=== PATIENT | male | born 1945 | race Caucasian/White ===

== ENCOUNTER → 2016-06-18 | Outpatient (CLI) | payer BC ==
[~2016-06-18] MED LIST: CMD4 PO; LISI20TA3 PO; METO100T14 PO; OXYC-57 PO; OXYSR10 PO; PRED-301 PO; PRLSR20 PO; RMCI INJ
[2016-06-18 13:19] LABS: HEPATITIS B AB NEG
[2016-06-21 13:17] LABS: ANA TITER 1:40 TITER (<1:40)
== END | disposition home or self-care (01) ==
LOC: C.LAB1850 11:26
PROVIDERS: ATTEND Internal Medicine
DX: R74.8 Abnormal levels of other serum enzymes (principal)

== ENCOUNTER → 2016-09-10 | Outpatient (CLI) | payer BC ==
[~2016-09-10] MED LIST changes: +APRE1TAB4 PO; +GLC500 PO; +GLIM4TAB2 PO; +LSN40 PO; +NRV/10 PO; +PANT40TA2 PO; +PRED10TA PO; +TRAM-10 PO; +ULT50 PO
[2016-09-10 12:34] LABS: HEMATOCRIT 41.7 % (42-52); MEAN CELL VOLUME 87.1 fL (80-100); MEAN CORPUSCULAR HEMOGLOBIN 29.2 pg (25-34); MEAN CORPUSCULAR HGB CONC 33.6 g/dl (32-36); MEAN PLATELET VOLUME 11.3 fL (7.4-10.4); PLATELET COUNT 175 K/uL (130-400); RED BLOOD COUNT 4.79 M/uL (4.7-6.1); WHITE BLOOD COUNT 6.14 K/uL (4.8-10.8)
[2016-09-10 13:05] LABS: ALT/SGPT 173 U/L (12-78); BLOOD UREA NITROGEN 16 mg/dl (7-18); BUN/CREATININE RATIO 17.2 (10-20); CARBON DIOXIDE 29 mmol/L (21-32); CHLORIDE 99 mmol/L (98-107); CREATININE 0.93 mg/dl (0.60-1.40); GLUCOSE 169 mg/dl (70-99); POTASSIUM 4.2 mmol/L (3.5-5.1); SODIUM 135 mmol/L (136-145)
[2016-09-10 13:07] LABS: ALT/SGPT 172 U/L (12-78); CREATININE 0.98 mg/dl (0.60-1.40); ESTIMATED AVERAGE GLUCOSE 192 mg/dl; HA1C FLAG Normal (Normal)
[2016-09-10 13:08] LABS: ALB/GLOB RATIO 0.7 (0.9-2); ALKALINE PHOSPHATASE 50 U/L (45-117); AST/SGOT 184 U/L (15-37)
[2016-09-10 13:10] LABS: ALKALINE PHOSPHATASE 50 U/L (45-117); AST/SGOT 185 U/L (15-37)
== END | disposition home or self-care (01) ==
LOC: C.LABPVFM 09:11
PROVIDERS: ATTEND Internal Medicine
DX: L40.50 Arthropathic psoriasis, unspecified (principal); Z79.899 Other long term (current) drug therapy; I10 Essential (primary) hypertension; E78.5 Hyperlipidemia, unspecified; E11.21 Type 2 diabetes mellitus with diabetic nephropathy; R74.8 Abnormal levels of other serum enzymes

== ENCOUNTER → 2016-09-13 | Outpatient (CLI) | payer BC ==
--- NOTE | 2016-09-13 16:07 | DIAGNOSTIC IMAGING REPORT ---
CHEST 2 VIEWS ROUTINE CLINICAL HISTORY: COUGH COMPARISON STUDY: 06/26/2011 FINDINGS: The heart is at the upper limits of normal in size. There is no failure. There is no focal pulmonary consolidation. There are no pleural effusions. Mediastinal widening is likely secondary to fat deposition given the patient's body habitus.[ IMPRESSION: No active disease in the chest. Electronically signed by: Dom Perez M.D. 09/13/2016 4:05 PM Dictated Date/Time: 09/13/2016 4:05 PM
== END | disposition home or self-care (01) ==
LOC: C.RADPV 15:52
PROVIDERS: ATTEND Family Medicine
DX: R05 Cough (principal)

== ENCOUNTER → 2016-10-24 | Outpatient (CLI) | payer BC ==
[2016-10-24 12:14] LABS: BASO % 0.2 %; BASO ABS # 0.02 K/uL (0-0.2); COMPLETE YES; EOS % 3.1 %; HEMATOCRIT 41.6 % (42-52); IG% 0.1 %; LYMPH % 34.3 %; MEAN CORPUSCULAR HEMOGLOBIN 30.2 pg (25-34); MEAN CORPUSCULAR HGB CONC 33.2 g/dl (32-36); MEAN PLATELET VOLUME 11.7 fL (7.4-10.4); MONO % 6.9 %; NEUT % 55.4 %; PLATELET COUNT 210 K/uL (130-400); RED BLOOD COUNT 4.57 M/uL (4.7-6.1); WHITE BLOOD COUNT 8.74 K/uL (4.8-10.8)
[2016-10-24 13:36] LABS: ALB/GLOB RATIO 0.7 (0.9-2); ALT/SGPT 145 U/L (12-78); AST/SGOT 83 U/L (15-37); BLOOD UREA NITROGEN 16 mg/dl (7-18); BUN/CREATININE RATIO 15.6 (10-20); CALCIUM 8.7 mg/dl (8.5-10.1); CARBON DIOXIDE 30 mmol/L (21-32); CHLORIDE 101 mmol/L (98-107); GLUCOSE 198 mg/dl (70-99); POTASSIUM 4.4 mmol/L (3.5-5.1); SODIUM 136 mmol/L (136-145)
[2016-10-24 13:48] LABS: ALKALINE PHOSPHATASE 56 U/L (45-117); IMMUNOGLOBULN M 65.9 mg/dL (40-230)
[2016-10-25 11:17] LABS: FREE KAPPA 52.1 MG/L (3.3-19.4); FREE KAPPA/LAMBDA RATIO 1.03 (0.26-1.65); FREE LAMBDA 50.4 MG/L (5.7-26.3)
[2016-10-25 16:13] LABS: ALBUMIN 3.9 G/DL (3.8-4.8); GAMMA GLOBULIN 1.7 G/DL (0.8-1.7)
== END | disposition home or self-care (01) ==
LOC: C.LABPVFM 08:33
PROVIDERS: ATTEND Internal Medicine Hematology & Oncology
DX: D47.2 Monoclonal gammopathy (principal)

== ENCOUNTER → 2016-11-20 | Outpatient (CLI) | payer BC ==
[2016-11-20 13:32] LABS: ESTIMATED AVERAGE GLUCOSE 214 mg/dl; HA1C FLAG Normal (Normal)
[2016-11-20 14:18] LABS: MAGNESIUM 1.8 mg/dl (1.8-2.4)
[2016-11-20 14:28] LABS: BLOOD UREA NITROGEN 18 mg/dl (7-18); BUN/CREATININE RATIO 17.5 (10-20); CHLORIDE 101 mmol/L (98-107); GLUCOSE 176 mg/dl (70-99); POTASSIUM 4.2 mmol/L (3.5-5.1); SODIUM 138 mmol/L (136-145)
[2016-11-20 14:32] LABS: ALB/GLOB RATIO 0.6 (0.9-2); AST/SGOT 55 U/L (15-37)
[2016-11-20 14:40] LABS: CALCIUM 9.1 mg/dl (8.5-10.1); CARBON DIOXIDE 28 mmol/L (21-32)
[2016-11-20 14:48] LABS: ALKALINE PHOSPHATASE 55 U/L (45-117); ALT/SGPT 83 U/L (12-78)
--- NOTE | 2016-11-26 10:36 | CODING QUERY MEDICAL NECESSITY ---
SUPPORTING DIAGNOSIS NEEDED Dr. Stewart, A supporting diagnosis is required for the test/procedure performed on this patient in order for us to be reimbursed by the patient's insurance. Please provide a supporting diagnosis for the following test/procedure listed below next to the test name along with your signature. *If there is no additional diagnosis for this patient that would support the following test/procedure please document that below next to the test/procedure. Test(s)/Procedure(s) that require a supporting diagnosis: * [id number] GLYCATED HEMOGLOBIN DIAGNOSIS: DATE OF SERVICE: 11/20/16 Provider Signature: Date: Thank you Reggie Andres [facility] Information Management Once completed, please kindly fax back to [phone] For questions please call [phone]
== END | disposition home or self-care (01) ==
LOC: C.LABPVFM 07:56
PROVIDERS: ATTEND Internal Medicine
DX: R25.2 Cramp and spasm (principal); R74.8 Abnormal levels of other serum enzymes; E55.9 Vitamin D deficiency, unspecified

== ENCOUNTER → 2016-12-26 | Outpatient (CLI) | payer BC ==
[~2016-12-26] MED LIST changes: -APRE1TAB4 PO; -GLC500 PO; -GLIM4TAB2 PO; -LSN40 PO; -NRV/10 PO; -PANT40TA2 PO; -PRED10TA PO; -TRAM-10 PO; -ULT50 PO
[2016-12-26 13:15] LABS: HEMATOCRIT 41.4 % (42-52); MEAN CELL VOLUME 88.1 fL (80-100); MEAN CORPUSCULAR HEMOGLOBIN 28.5 pg (25-34); MEAN CORPUSCULAR HGB CONC 32.4 g/dl (32-36); MEAN PLATELET VOLUME 10.6 fL (7.4-10.4); PLATELET COUNT 249 K/uL (130-400); WHITE BLOOD COUNT 10.55 K/uL (4.8-10.8)
[2016-12-26 13:36] LABS: ALT/SGPT 105 U/L (12-78); AST/SGOT 74 U/L (15-37)
[2016-12-26 13:37] LABS: ALKALINE PHOSPHATASE 54 U/L (45-117)
== END | disposition home or self-care (01) ==
LOC: C.LABPVFM 08:31
PROVIDERS: ATTEND Internal Medicine
DX: L40.50 Arthropathic psoriasis, unspecified (principal); Z79.899 Other long term (current) drug therapy

== ENCOUNTER → 2017-01-28 | Outpatient (CLI) | payer BC ==
[2017-01-28 13:31] LABS: ALT/SGPT 75 U/L (12-78); AST/SGOT 53 U/L (15-37); BLOOD UREA NITROGEN 17 mg/dl (7-18); BUN/CREATININE RATIO 17.8 (10-20); CALCIUM 9.2 mg/dl (8.5-10.1); CARBON DIOXIDE 30 mmol/L (21-32); CHLORIDE 101 mmol/L (98-107); CREATININE 0.93 mg/dl (0.60-1.40); GLUCOSE 104 mg/dl (70-99); POTASSIUM 4.1 mmol/L (3.5-5.1); SODIUM 134 mmol/L (136-145)
[2017-01-28 13:33] LABS: ALB/GLOB RATIO 0.6 (0.9-2); ALKALINE PHOSPHATASE 60 U/L (45-117)
== END | disposition home or self-care (01) ==
LOC: C.LABPVFM 09:01
PROVIDERS: ATTEND Family Medicine
DX: E11.21 Type 2 diabetes mellitus with diabetic nephropathy (principal); R74.8 Abnormal levels of other serum enzymes; E55.9 Vitamin D deficiency, unspecified

== ENCOUNTER → 2017-03-21 | Outpatient (CLI) | payer BC ==
--- NOTE | 2017-03-21 12:24 | DIAGNOSTIC IMAGING REPORT ---
R HAND 2 VIEWS CLINICAL HISTORY: PAIN AND SWELLING COMPARISON: None. DISCUSSION: No acute fractures are visualized. There is joint space narrowing involving the first second and third metacarpal phalangeal joints. Osteoarthritic type changes are present the level of the proximal distal interphalangeal joints with erosive osteoarthritic changes identified to level of the distal interphalangeal joint of the index finger. No peripheral erosions are visualized. There are vascular calcifications. IMPRESSION: 1. No acute fractures 2. Moderately advanced osteoarthritic changes, predominantly in an osteoarthritic pattern. The changes are most severe involving the distal interphalangeal joint of the index finger which demonstrates prominent osteophytes, fragmentation, and erosive osteoarthritic change. Electronically signed by: Dom Perez M.D. 03/21/2017 12:23 PM Dictated Date/Time: 03/21/2017 12:16 PM
--- NOTE | 2017-03-21 12:25 | DIAGNOSTIC IMAGING REPORT ---
L FOOT 2 VIEWS, R FOOT 2 VIEWS CLINICAL HISTORY: PAIN AND SWELLING of bilateral feet COMPARISON STUDY: None. FINDINGS: No fracture or dislocation within the right or left foot. Mild vascular calcifications. Mild to moderate degenerative changes seen within the DIP and PIP joints of the bilateral feet. There also mild degenerative changes seen within the bilateral first MTP joints and intertarsal joints. No bony erosions within the right foot. Mild soft tissue swelling throughout the feet most pronounced within the right toes. Possible small focal erosion at the lateral head of the fifth metatarsal of the left foot with adjacent soft tissue swelling. No periarticular calcifications. The Lisfranc joints are intact. Plantar and posterior calcaneal spurs bilaterally. IMPRESSION: 1. Mild diffuse soft tissue swelling within the feet. 2. Mild to moderate osteoarthritis within the feet. 3. Possible small erosion at the lateral head of the fifth metatarsal of the left foot. This is nonspecific but could be due to gouty arthritis. Electronically signed by: Vijay Reynoso M.D. 03/21/2017 12:23 PM Dictated Date/Time: 03/21/2017 12:15 PM
--- NOTE | 2017-03-21 12:28 | DIAGNOSTIC IMAGING REPORT ---
L HAND 2 VIEWS CLINICAL HISTORY: PAIN AND SWELLING COMPARISON: None. DISCUSSION: The bony mineralization appears normal. There are no fractures or subluxations. There are arthritic changes of a predominately osteoarthritic pattern. There is no erosive disease. IMPRESSION: Moderate osteoarthritic change. No acute fractures. Electronically signed by: Dom Perez M.D. 03/21/2017 12:27 PM Dictated Date/Time: 03/21/2017 12:26 PM
[2017-03-21 17:38] LABS: BASO % 0.2 %; BASO ABS # 0.03 K/uL (0-0.2); COMPLETE YES; EOS % 1.5 %; HEMATOCRIT 33.7 % (42-52); IG% 0.2 %; LYMPH % 25.5 %; LYMPH ABS # 3.62 K/uL (1.2-3.4); MEAN CELL VOLUME 85.3 fL (80-100); MEAN CORPUSCULAR HEMOGLOBIN 28.1 pg (25-34); MEAN CORPUSCULAR HGB CONC 32.9 g/dl (32-36); MEAN PLATELET VOLUME 9.8 fL (7.4-10.4); MONO % 7.1 %; NEUT % 65.5 %; PLATELET COUNT 350 K/uL (130-400); RED BLOOD COUNT 3.95 M/uL (4.7-6.1)
[2017-03-21 17:56] LABS: ALT/SGPT 37 U/L (12-78); AST/SGOT 37 U/L (15-37)
[2017-03-21 17:59] LABS: ALKALINE PHOSPHATASE 58 U/L (45-117)
== END | disposition home or self-care (01) ==
LOC: C.RADPV 11:43
PROVIDERS: ATTEND Internal Medicine
DX: L40.50 Arthropathic psoriasis, unspecified (principal)

== ENCOUNTER 2017-04-08 19:07 | Emergency (ER) | payer BC, OTHER ==
[~2017-04-08] VITALS: Ht 167.6 cm; Wt 132.3 kg
[2017-04-08 19:16] VITALS: TEMP 37.1; Ht 167.6 cm; Wt 132.3 kg
[2017-04-08] MEDS ORDERED: OPTIRAY 320 IV PRN (19:30)
[2017-04-08] MEDS ORDERED: LSN40 PO (19:42)
[2017-04-08] MEDS ORDERED: GLC500 PO (19:42)
[2017-04-08] MEDS ORDERED: GLIM4TAB2 PO (19:42)
[2017-04-08] MEDS ORDERED: ULT50 PO (19:42)
[2017-04-08] MEDS ORDERED: PRED10TA PO (19:42)
[2017-04-08] MEDS ORDERED: APRE1TAB4 PO (19:42)
[2017-04-08] MEDS ORDERED: NRV/10 PO (19:44)
[2017-04-08] MEDS ORDERED: PANT40TA2 PO (19:44)
[2017-04-08 20:00] LABS: BASO % 0.2 %; BASO ABS # 0.02 K/uL (0-0.2); COMPLETE YES; EOS % 0.5 %; HEMATOCRIT 34.8 % (42-52); IG% 0.4 %; LYMPH % 26.4 %; MEAN CELL VOLUME 84.5 fL (80-100); MEAN CORPUSCULAR HEMOGLOBIN 27.4 pg (25-34); MEAN CORPUSCULAR HGB CONC 32.5 g/dl (32-36); MONO % 4.3 %; NEUT % 68.2 %; PLATELET COUNT 247 K/uL (130-400); RED BLOOD COUNT 4.12 M/uL (4.7-6.1); WHITE BLOOD COUNT 13.28 K/uL (4.8-10.8)
[2017-04-08 20:02] LABS: INR 0.9 (0.9-1.1); PROTHROMBIN TIME (PATIENT) 10.1 SECONDS (9.0-12.0)
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
[2017-04-08 20:20] LABS: ALT/SGPT 34 U/L (12-78); AST/SGOT 18 U/L (15-37); BLOOD UREA NITROGEN 23 mg/dl (7-18); BUN/CREATININE RATIO 19.2 (10-20); CARBON DIOXIDE 30 mmol/L (21-32); CHLORIDE 100 mmol/L (98-107); CREATININE 1.19 mg/dl (0.60-1.40); GLUCOSE 169 mg/dl (70-99); POTASSIUM 4.8 mmol/L (3.5-5.1); SODIUM 135 mmol/L (136-145)
[2017-04-08 20:22] LABS: ALKALINE PHOSPHATASE 49 U/L (45-117)
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
[2017-04-08] MEDS ORDERED: TRAM-10 PO (22:22)
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
[2017-04-08] MEDS ORDERED: TRAMADOL HCL 50 MG HOME PACK PO ONE (22:45)
[2017-04-08 22:50] VITALS: BP 154/88; PULSE 84; O2SAT 98
== END 2017-04-08 23:00 | disposition home or self-care (01) ==
LOC: EDBD 19:07 → C.EDC 19:08
DX: S72.432A Displaced fracture of medial condyle of left femur, initial encounter for closed fracture (principal); M54.9 Dorsalgia, unspecified; V03.10XA Pedestrian on foot injured in collision with car, pick-up truck or van in traffic accident, initial encounter; Y92.481 Parking lot as the place of occurrence of the external cause; E11.9 Type 2 diabetes mellitus without complications; I10 Essential (primary) hypertension; E78.1 Pure hyperglyceridemia; Z79.899 Other long term (current) drug therapy; Z83.3 Family history of diabetes mellitus; Z82.49 Family history of ischemic heart disease and other diseases of the circulatory system

== ENCOUNTER → 2017-05-23 | Outpatient (CLI) | payer BC ==
[~2017-05-23] MED LIST changes: +APRE1TAB4 PO; -CMD4 PO; +GLC500 PO; +GLIM4TAB2 PO; -LISI20TA3 PO; +LSN40 PO; -METO100T14 PO; +NRV/10 PO; -OXYC-57 PO; -OXYSR10 PO; +PANT40TA2 PO; -PRED-301 PO; +PRED10TA PO; -PRLSR20 PO; -RMCI INJ; +TRAM-10 PO; +ULT50 PO
[2017-05-23 13:14] LABS: ESTIMATED AVERAGE GLUCOSE 157 mg/dl; HA1C FLAG Normal (Normal)
[2017-05-23 13:37] LABS: ALT/SGPT 29 U/L (12-78); BLOOD UREA NITROGEN 18 mg/dl (7-18); CALCIUM 9.2 mg/dl (8.5-10.1); CARBON DIOXIDE 31 mmol/L (21-32); CHLORIDE 100 mmol/L (98-107); CHOLESTEROL 167 mg/dl (0-200); CREATININE 0.86 mg/dl (0.60-1.40); GLUCOSE 90 mg/dl (70-99); SODIUM 136 mmol/L (136-145); TRIGLYCERIDES 114 mg/dl (0-150); VERY LOW DENSITY LIPOPROT CALC 23 mg/dl
[2017-05-23 13:40] LABS: ALB/GLOB RATIO 0.7 (0.9-2); ALKALINE PHOSPHATASE 54 U/L (45-117); AST/SGOT 17 U/L (15-37); CHOLESTEROL/HDL RATIO 3.8; HDL CHOLESTEROL 44 mg/dl; LDL CHOLESTEROL CALCULATED 100 mg/dl
== END | disposition home or self-care (01) ==
LOC: C.LABPVFM 08:35
PROVIDERS: ATTEND Family Medicine
DX: L40.9 Psoriasis, unspecified (principal)

== ENCOUNTER → 2017-07-16 | Outpatient (CLI) | payer BC ==
[2017-07-16 12:52] LABS: HEMATOCRIT 36.4 % (42-52); HEMOGLOBIN 11.4 g/dL (14.0-18.0); MEAN CELL VOLUME 81.6 fL (80-100); MEAN CORPUSCULAR HEMOGLOBIN 25.6 pg (25-34); MEAN CORPUSCULAR HGB CONC 31.3 g/dl (32-36); MEAN PLATELET VOLUME 10.1 fL (7.4-10.4); PLATELET COUNT 296 K/uL (130-400); RED CELL DISTRIBUTION WIDTH CV 16.5 % (11.5-14.5); RED CELL DISTRIBUTION WIDTH SD 49.2 fL (36.4-46.3); WHITE BLOOD COUNT 13.26 K/uL (4.8-10.8)
[2017-07-16 13:31] LABS: ALBUMIN 3.2 gm/dl (3.4-5.0); ALT/SGPT 26 U/L (12-78); AST/SGOT 16 U/L (15-37); CREATININE 0.84 mg/dl (0.60-1.40)
[2017-07-16 13:51] LABS: ALKALINE PHOSPHATASE 54 U/L (45-117); TOTAL PROTEIN 8.2 gm/dl (6.4-8.2)
== END | disposition home or self-care (01) ==
LOC: C.LABPVFM 08:59
PROVIDERS: ATTEND Internal Medicine
DX: L40.50 Arthropathic psoriasis, unspecified (principal); Z79.899 Other long term (current) drug therapy

== ENCOUNTER → 2017-09-02 | Outpatient (CLI) | payer BC ==
--- NOTE | 2017-09-02 09:14 | DIAGNOSTIC IMAGING REPORT ---
R SHOULDER MIN 2 VIEWS ROUTINE CLINICAL HISTORY: ACUTE PAIN BOTH SHOULDERS pain COMPARISON: None. DISCUSSION: Moderate degenerative change glenohumeral and acromioclavicular joints. Calcifications along the supraspinatus musculotendinous junction. Potentially also represent synovial calcifications. No evidence for fracture. There is no evidence for soft tissue swelling. IMPRESSION: Moderate degenerative change glenohumeral as well as acromioclavicular joint. Several synovial calcifications versus calcific supraspinatus tendinitis. The above report was generated using voice recognition software. It may contain grammatical, syntax or spelling errors. Electronically signed by: Albino Espinosa M.D. 09/02/2017 9:12 AM Dictated Date/Time: 09/02/2017 9:11 AM
--- NOTE | 2017-09-02 09:15 | DIAGNOSTIC IMAGING REPORT ---
L SHOULDER MIN 2 VIEWS ROUTINE CLINICAL HISTORY: ACUTE PAIN BOTH SHOULDERS pain COMPARISON: None. DISCUSSION: Moderate degenerative change acromioclavicular as well as glenohumeral joint. No significant soft tissue calcifications. Mild peripheral osteophytic reaction. There is no evidence for soft tissue swelling. IMPRESSION: Moderate degenerative changes of glenohumeral as well as acromioclavicular joint. No acute process. The above report was generated using voice recognition software. It may contain grammatical, syntax or spelling errors. Electronically signed by: Albino Espinosa M.D. 09/02/2017 9:13 AM Dictated Date/Time: 09/02/2017 9:12 AM
== END | disposition home or self-care (01) ==
LOC: C.RADPV 08:46
PROVIDERS: ATTEND Internal Medicine
DX: M25.511 Pain in right shoulder (principal); M25.512 Pain in left shoulder; M19.011 Primary osteoarthritis, right shoulder; M19.012 Primary osteoarthritis, left shoulder

== ENCOUNTER 2019-04-07 19:28 | Inpatient (IN) ==
[2019-04-07 20:23] LABS: Basophils # (auto) 0.03 K/uL (0-0.2); Basophils % (auto) 0.2 %; Eosinophils # (auto) 0.13 K/uL (0-0.5); Eosinophils % (auto) 0.9 %; Hematocrit (blood only) 38.3 % (42-52); Hemoglobin 11.9 g/dL (14.0-18.0); Immature Granulocytes # (auto) 0.05 K/uL (0.00-0.02); Immature Granulocytes % (auto) 0.4 %; Lymphocytes # (auto) 2.84 K/uL (1.2-3.4); Mean Corpuscular Hemoglobin 26.3 pg (25-34); Mean Corpuscular Hgb Conc 31.1 g/dL (32-36); Mean Corpuscular Volume 84.5 fL (80-100); Mean Platelet Volume 9.9 fL (7.4-10.4); Monocytes # (auto) 1.01 K/uL (0.11-0.59); Monocytes % (auto) 7.1 %; Neutrophils # (auto) 10.17 K/uL (1.4-6.5); Neutrophils % (auto) 71.4 %; Platelet Count 291 K/uL (130-400); RDW Coefficient of Variation 16.9 % (11.5-14.5); RDW Standard Deviation 52.5 fL (36.4-46.3); Red Blood Count 4.53 M/uL (4.7-6.1); White Blood Count 14.23 K/uL (4.8-10.8)
[2019-04-07 20:34] LABS: Partial Thromboplastin Ratio 0.8; Partial Thromboplastin Time 21.4 Seconds (21.0-31.0); Prothrombin Time 10.7 Seconds (9.0-12.0)
[2019-04-07 20:38] LABS: Alanine Aminotransferase 26 U/L (12-78); Albumin Level 3.4 gm/dl (3.4-5.0); Aspartate Aminotransferase 19 U/L (15-37); BUN Creatinine Ratio 19.4 (10-20); Blood Urea Nitrogen 22 mg/dl (7-18); Calcium 9.1 mg/dl (8.5-10.1); Carbon Dioxide 35 mmol/L (21-32); Chloride 99 mmol/L (98-107); Est GFR (African American) 73.3; Est GFR (Non-African American) 63.2; Glucose 112 mg/dl (70-99); Sodium 138 mmol/L (136-145)
--- NOTE | 2019-04-07 20:40 | XRay Report ---
XR chest 1V portable HISTORY: Sepsis COMPARISON: Chest 04/07/2018. FINDINGS: The heart remains enlarged. There are low lung volumes. There is mild central pulmonary vas cular congestion without overt edema. No pleural effusions. No pneumothorax. A few bibasilar linear d ensities. IMPRESSION: 1. Cardiomegaly with mild central pulmonary vascular congestion. 2. Low lung volumes and bibasilar linear densities. These are nonspecific but favor subsegmental atel ectasis. Electronically signed by: Vijay Reynoso M.D. 04/07/2019 8:39 PM
[2019-04-07] MEDS ORDERED: FUROSEMIDE 40 MG/4 ML VIAL IV STA (20:49)
[2019-04-07 20:52] LABS: Albumin Globulin Ratio 0.7 (0.9-2); Alkaline Phosphatase 58 U/L (45-117); Bilirubin,Total 0.7 mg/dl (0.2-1); Globulin 4.9 gm/dl (2.5-4.0); Total Protein 8.3 gm/dl (6.4-8.2); Troponin I 0.134 ng/ml (0-0.045)
[2019-04-08] MEDS ORDERED: CLOBETASOL PROPIONATE 0.05% OINT 15 GM TUBE EXT PRN (00:09)
[2019-04-08] MEDS ORDERED: DEXTROSE 50% 50 ML SYRINGE IV PRN (00:09)
[2019-04-08] MEDS ORDERED: MAGNESIUM HYDROXIDE SUSP 30 ML UDC PO PRN (00:09)
[2019-04-08] MEDS ORDERED: POLYETHYLENE (MIRALAX) 17 GM PACK PO PRN (00:09)
[2019-04-08] MEDS ORDERED: GLUCOSE 10 TABS/TUBE PO PRN (00:09)
[2019-04-08] MEDS ORDERED: GLUCOSE 40% GEL 15 GM TUBE PO PRN (00:09)
[2019-04-08] MEDS ORDERED: GLUCAGON FOR INJ 1 MG VIAL SQ PRN (00:09)
[2019-04-08] MEDS ORDERED: CARBOHYDRATES FOR HYPOGLYCEMIA PO PRN (00:09)
[2019-04-08] MEDS ORDERED: ACETAMINOPHEN 325 MG TAB PO PRN (00:09)
[2019-04-08] MEDS ORDERED: ONDANSETRON INJ 2 MG/ML 2 ML VIAL IV PRN (00:09)
[2019-04-08] MEDS ORDERED: ALUMINUM/MAGNESIUM SUSP 30 ML UDC PO PRN (00:09)
--- NOTE | 2019-04-08 01:06 | Emergency Department Note ---
Entered by Marly Malin acting as a scribe for Rajendra Sprague MD History of Present Illness General Chief complaint: Cardiac Assessment Stated complaint: VOMITING, SOB, WEAK, DID HAVE CHEST PAIN Time Seen by Provider: 04/07/19 19:58 Source: patient History of Present Illness Onset (ago): day(s) (past few days) Location: head and chest Pain Consistency: + other (worsening (SOB)) Quality: + other (cardiac assessment ) Associated symptoms: + shortness of breath and + other (Positive hx of fluid buildup in the past, recent swollen legs, diarrhea today. Negative pain or swelling in his legs, recent fevers); no cough The patient is a 73 year old male who presents to the ED for a cardiac assessment. He has had worsening shortness of breath for the past few days. He has a history of CHF and has been using his nebulizers at home with minimal relief. He denies any pain or swelling in his legs. He denies any recent fevers or cough. He notes he does not have inhalers at home. His states he has filled up with fluid in the past. She denies any recent fevers. Yesterday, the patient saw his Plasterer Spray Gun, Dr. Steiner, and she told him his legs were increasingly swollen. His notes he has been feeling crummy today and had diarrhea earlier today. Home Medications Home Medications Medication Instructions Recorded Confirmed Type amlodipine 10 mg PO QAM 03/30/18 04/07/19 History atorvastatin 10 mg PO DAILY 03/30/18 04/07/19 History cholecalciferol (vitamin D3) 1,000 unit PO DAILY 03/30/18 04/07/19 History [Vitamin D3] clobetasol 1 applic TOPICAL BID PRN 03/30/18 04/07/19 History clotrimazole 1 applic TOPICAL BID PRN 03/30/18 04/07/19 History metformin 500 mg PO BID 03/30/18 04/07/19 History pantoprazole 40 mg PO DAILY 03/30/18 04/07/19 History furosemide 40 mg PO DAILY #30 tab 04/01/18 04/07/19 Rx lisinopril 40 mg tablet 40 mg PO DAILY #90 tab 12/04/18 04/07/19 Rx glimepiride 2 mg tablet 2 mg PO BID #180 tab 12/16/18 04/07/19 Rx metoprolol tartrate 100 mg tablet 100 mg PO BID #180 tab 12/16/18 04/07/19 Rx potassium chloride ER 10 mEq 10 meq PO DAILY #30 cap 12/29/18 04/07/19 Rx capsule,extended release gabapentin 100 mg capsule 100 mg PO DAILY cap 02/05/19 04/07/19 History ixekizumab 80 mg/mL subcutaneous 80 mg SQ MONTHLY ml 02/05/19 04/07/19 History auto-injector prednisone 10 mg tablet 10 mg PO DAILY tab 02/05/19 04/07/19 History Allergies Allergy/AdvReac Type Severity Reaction Status Date / Time codeine Allergy Intermediate HIVES--PT Verified 04/07/19 22:33 DOES NOT USE PERCOCET Past Med/Surg History Medical History Rheumatoid arthritis MGUS (monoclonal gammopathy of unknown significance) Sleep apnea Diabetes (Chronic) Hypertension (Chronic) Arthritis Hyperlipidemia Neuropathy Surgical History History of arthroplasty of right shoulder History of bilateral knee replacement Hx of appendectomy Hx of cholecystectomy Hx of hernia repair Family History Other Family history non-contributory Social History Preferred Language: Congolese Communication Ability: Effective 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 and A total of 10 systems reviewed and were otherwise negative Physical Exam Vital Signs Vital Signs - 24 hr 04/07/19 19:40 04/07/19 19:47 04/07/19 19:57 Temperature 36.6 C Temperature Source Oral Sepsis Recent Fever Within 48 Hours No Sepsis New/Unexplained Change in Mental Status No Sepsis Action Taken by Nursing No Action Required Pulse Rate 81 Pulse Rate [Finger] Pulse Rhythm [Finger] Pulse Strength [Finger] Respiratory Rate 18 Respiratory Effort / Characteristics Non-Labored Spontaneous Respiratory Depth Normal Normal Respiratory Pattern Regular Blood Pressure 120/77 Blood Pressure [Right Arm] Blood Pressure Mean 91 Blood Pressure Mean [Right Arm] Pulse Oximetry 45 L Oxygen Delivery Method Nasal Cannula Nasal Cannula Oxymask Oxygen Flow Rate 3 8 04/07/19 20:10 04/07/19 20:42 04/07/19 21:20 Temperature Temperature Source Sepsis Recent Fever Within 48 Hours Sepsis New/Unexplained Change in Mental Status Sepsis Action Taken by Nursing Pulse Rate Pulse Rate [Finger] 80 95 H Pulse Rhythm [Finger] Regular Regular Pulse Strength [Finger] Normal Normal Respiratory Rate 23 19 Respiratory Effort / Characteristics Non-Labored Spontaneous Non-Labored Spontaneous Respiratory Depth Normal Normal Respiratory Pattern Regular Regular Blood Pressure Blood Pressure [Right Arm] 164/55 H 155/78 H Blood Pressure Mean Blood Pressure Mean [Right Arm] 91 103 Pulse Oximetry 96 99 93 Oxygen Delivery Method Oxymask Room Air Oxymask Oxygen Flow Rate 8 8 04/07/19 22:07 Temperature Temperature Source Sepsis Recent Fever Within 48 Hours Sepsis New/Unexplained Change in Mental Status Sepsis Action Taken by Nursing Pulse Rate Pulse Rate [Finger] 99 H Pulse Rhythm [Finger] Regular Pulse Strength [Finger] Normal Respiratory Rate 24 Respiratory Effort / Characteristics Non-Labored Spontaneous Respiratory Depth Normal Respiratory Pattern Regular Blood Pressure Blood Pressure [Right Arm] 155/78 H Blood Pressure Mean Blood Pressure Mean [Right Arm] 103 Pulse Oximetry 93 Oxygen Delivery Method Oxymask Oxygen Flow Rate 8 General: Heavy set moderately tachypneic older male, normal mentation HEENT: Normal cephalic atraumatic. Pupils are equal round and reactive to light. Extraocular movements are intact. Oropharynx is pink with moist mucous membranes. No swelling of the mouth lips or tongue. Neck: Supple with a midline trachea. No meningeal signs or stiffness, no JVD or bruits. No Stridor. Chest: Clear to auscultation bilaterally. No wheezes or rhonchi. No increased work of breathing. Heart: regular rate and rhythm. Abdomen: Soft nontender, nondistended without rebound guarding or rigidity. Extremities: No cyanosis clubbing. No calf tenderness or asymmetry. Pitting of LE Spine/Back. Non tender to palpation. No CVA tenderness Skin: Good turgor without rashes. Neurologic exam: Cranial nerves two through 12 are intact. Motor and sensation are intact and symmetrical throughout. Course 1947: Past medical records reviewed. The patient was evaluated in room B9. A com plete history and physical exam was performed. 2049: I checked on the patient at this time. He will receive some IV Lasix. 2099: Discussed the patient's case with Dr. Romero, [facility] Hospitalist. The patient will be evaluated for further management. Administered Medications Discontinued Medications Furosemide (Lasix) 40 mg IV NOW STA Stop: 04/07/19 20:50 Last Admin: 04/07/19 21:20 Dose: 40 mg Documented by: [id number] Methylprednisolone (Solumedrol) 20 mg IV NOW ONE Stop: 04/07/19 23:16 Last Admin: 04/07/19 23:12 Dose: 20 mg Documented by: [id number] Medical Decision Making Differential Diagnosis Differential diagnosis: Etiologies such as CHF, COPD, sepsis, pneumonia, electrolyte or metabolic abnormality, as well as others were entertained. Medical Records Attestation: I reviewed the patient's medical records. Home Medications Current Medication List: was personally reviewed by me Laboratory Data Attestation: I reviewed the patient's lab results. Result diagrams: 04/07/19 19:11 04/07/19 19:11 Lab Results 04/07/19 04/07/19 04/07/19 Range/Units 19:11 19:11 19:11 WBC 14.23 H (4.8-10.8) K/uL RBC 4.53 L (4.7-6.1) M/uL Hgb 11.9 L (14.0-18.0) g/dL Hct 38.3 L (42-52) % MCV 84.5 (80-100) fL MCH 26.3 (25-34) pg MCHC 31.1 L (32-36) g/dL RDW Std Deviation 52.5 H (36.4-46.3) fL RDW Coeff of Tony 16.9 H (11.5-14.5) % Plt Count 291 (130-400) K/uL MPV 9.9 (7.4-10.4) fL Immature Gran % (Auto) 0.4 % Neut % (Auto) 71.4 % Lymph % (Auto) 20.0 % Duc[place]ne % (Auto) 7.1 % Eos % (Auto) 0.9 % Baso % (Auto) 0.2 % Immature Gran # (Auto) 0.05 H (0.00-0.02) K/uL Neut # (Auto) 10.17 H (1.4-6.5) K/uL Lymph # (Auto) 2.84 (1.2-3.4) K/uL Duc[place]ne # (Auto) 1.01 H (0.11-0.59) K/uL Eos # (Auto) 0.13 (0-0.5) K/uL Baso # (Auto) 0.03 (0-0.2) K/uL PT 10.7 (9.0-12.0) Seconds INR 1.0 (0.9-1.1) APTT 21.4 (21.0-31.0) Seconds PTT Ratio 0.8 Sodium 138 (136-145) mmol/L Potassium 4.0 (3.5-5.1) mmol/L Chloride 99 (98-107) mmol/L Carbon Dioxide 35 H (21-32) mmol/L Anion Gap 4.0 (3-11) BUN 22 H (7-18) mg/dl Creatinine 1.13 (0.6-1.4) mg/dl Est Cr Clr Drug Dosing Not Reportable Est GFR ( Amer) 73.3 Est GFR (Non-Af Amer) 63.2 BUN/Creatinine Ratio 19.4 (10-20) Glucose 112 H (70-99) mg/dl Lactate (0.4-2.0) mmol/L Calcium 9.1 (8.5-10.1) mg/dl Total Bilirubin 0.7 (0.2-1) mg/dl AST 19 (15-37) U/L ALT 26 (12-78) U/L Alkaline Phosphatase 58 (45-117) U/L Troponin I 0.134 H* (0-0.045) ng/ml Total Protein 8.3 H (6.4-8.2) gm/dl Albumin 3.4 (3.4-5.0) gm/dl Globulin 4.9 H (2.5-4.0) gm/dl Albumin/Globulin Ratio 0.7 L (0.9-2) 04/07/19 Range/Units 19:56 WBC (4.8-10.8) K/uL RBC (4.7-6.1) M/uL Hgb (14.0-18.0) g/dL Hct (42-52) % MCV (80-100) fL MCH (25-34) pg MCHC (32-36) g/dL RDW Std Deviation (36.4-46.3) fL RDW Coeff of Tony (11.5-14.5) % Plt Count (130-400) K/uL MPV (7.4-10.4) fL Immature Gran % (Auto) % Neut % (Auto) % Lymph % (Auto) % [place]ne % (Auto) % Eos % (Auto) % Baso % (Auto) % Immature Gran # (Auto) (0.00-0.02) K/uL Neut # (Auto) (1.4-6.5) K/uL Lymph # (Auto) (1.2-3.4) K/uL Duc[place]ne # (Auto) (0.11-0.59) K/uL Eos # (Auto) (0-0.5) K/uL Baso # (Auto) (0-0.2) K/uL PT (9.0-12.0) Seconds INR (0.9-1.1) APTT (21.0-31.0) Seconds PTT Ratio Sodium (136-145) mmol/L Potassium (3.5-5.1) mmol/L Chloride (98-107) mmol/L Carbon Dioxide (21-32) mmol/L Anion Gap (3-11) BUN (7-18) mg/dl Creatinine (0.6-1.4) mg/dl Est Cr Clr Drug Dosing Est GFR ( Amer) Est GFR (Non-Af Amer) BUN/Creatinine Ratio (10-20) Glucose (70-99) mg/dl Lactate 1.4 (0.4-2.0) mmol/L Calcium (8.5-10.1) mg/dl Total Bilirubin (0.2-1) mg/dl AST (15-37) U/L ALT (12-78) U/L Alkaline Phosphatase (45-117) U/L Troponin I (0-0.045) ng/ml Total Protein (6.4-8.2) gm/dl Albumin (3.4-5.0) gm/dl Globulin (2.5-4.0) gm/dl Albumin/Globulin Ratio (0.9-2) Imaging Data Radiologist's Impression: Radiology results as stated below per my review and the radiologist's interpretation: XR chest 1V portable HISTORY: Sepsis COMPARISON: Chest 04/07/2018. FINDINGS: The heart remains enlarged. There are low lung volumes. There is mild central pulmonary vascular congestion without overt edema. No pleural effusions. No pneumothorax. A few bibasilar linear densities. IMPRESSION: 1. Cardiomegaly with mild central pulmonary vascular congestion. 2. Low lung volumes and bibasilar linear densities. These are nonspecific but favor subsegmental atelectasis. Electronically signed by: Vijay Reynoso M.D. 04/07/2019 8:39 PM ECG Data Attestation: I personally reviewed and interpreted this ECG as follows: Indication: SOB/dyspnea Rate (beats per minute): 73 Rhythm: normal sinus (with SA) ECG Findings: Other (no acute ischemia, no ectopy) Comparison ECG Date: from (04/07/18) Change: the following changes noted (AZ interval has decreased ) Blood Pressure Blood Pressure Findings: Elevated blood pressure Blood Pressure Disposition: further management by hospitalist [facility] Narrative This patient comes in as described above. The nurse asked me to see him immediately as his O2 sat was in the high 40s. Initially the patient here did appear to be tachypneic .he was placed on a facemask oxygen. he has no wheezes in his lungs. he denies any chest pain. He quickly settled down. EKG did not show any acute ischemic changes or ectopy. Chest x-ray shows cardiomegaly. he has had a lot of weight gain and has lower extremity edema . he was given additional IV Lasix. His troponin is mildly elevated as well. His lactic acid is not elevated therefore going against sepsis. His white count is mildly elevated however. he is on chronic steroids. I think that his symptoms are most likely from CHF and I do think he needs to be admitted for diuresis and further treatment and evaluation. He is remained on oxygen but we have been slowly weaning him and diuresing him in the ER. I did consult Dr. Alcaraz to see him in the ER for admission/observation Impression & Plan CHF (congestive heart failure), Bilateral lower extremity edema, Hypoxemia, Elevated troponin Critical Care Time Critical Care Time: Yes Total Critical Care Time: 45 I have personally spent greater than 45 minutes of critical care time in the direct management of this patient. This includes bedside care, interpretation of diagnostic studies, and testing, discussion with consultants, patient, and family members, and other required patient management activities. This 45 minutes is in excess of all separately billable procedures. Discharge Plan Visit Data *Final* Discharge Date/Time: 04/07/19 23:38 Chief Complaint: Cardiac Assessment Stated Complaint: VOMITING, SOB, WEAK, DID HAVE CHEST PAIN ED Provider: Rajendra Sprague Discharge Problem: CHF (congestive heart failure), Bilateral lower extremity edema, Hypoxemia, Elevated troponin Patient Disposition: Admitted As Inpatient Discharge Instructions Interventions: ED Discharge Assessment Last Done: 04/07/19 23:38 Discharge Problem: CHF (congestive heart failure) Qualifiers: Heart failure type: unspecified Heart failure chronicity: unspecified Qualified Code(s): I50.9 - Heart failure, unspecified The scribe's documentation has been prepared under my direction and personally reviewed by me in its entirety. I confirm that the note above accurately reflects all work, treatment, procedures, and medical decision making performed by me.
[2019-04-08] MEDS: METOPROLOL TARTRATE 100 MG TAB PO SCH ×3 (01:35→21:37)
--- NOTE | 2019-04-08 05:09 | History & Physical Report ---
Date of Service April 08, 2019 The patient was seen and examined on 04/07/2019 Assessment & Plan (1) Hypoxia: Patient presented to the emergency department acutely hypoxic, improved with placement on mask. Likely a combination of obesity hypoventilation syndrome, COPD and development of CHF/fluid overload Present on Admission?: Yes (2) Bilateral lower extremity edema: Patient was given furosemide 40 mg IV in the ED, and will follow response. Continue furosemide 40 mg IV every morning. Follow daily weights and clinical examination. Assess for possible ischemic component. Present on Admission?: Yes (3) Elevated troponin: Troponin elevated at 0.134 upon admission. The patient will be admitted to telemetry for serial cardiac enzymes, serial EKG's, cardiac rhythm monitoring and a 2-D echocardiogram with Dopplers. Consult his creative perfumer Dr. Gonzalez Present on Admission?: Yes (4) COPD (chronic obstructive pulmonary disease): Place on Duonebs every 4 hours while awake and every 2 hours as needed. Solu-Medrol 20 mg IV every 8 hours, to address inflammation and prevent adrenal insufficiency. Try to taper mask to nasal cannula as at home. Present on Admission?: Yes (5) Obesity hypoventilation syndrome: Obesity hypoventilation syndrome- Contributing to daily respiratory difficulties and sleep apnea at night. Discussion regarding weight management Present on Admission?: Yes (6) Sleep apnea: He has not been able to tolerate CPAP at night time, and no longer sees Dr. Johnson. Present on Admission?: Yes (7) GERD (gastroesophageal reflux disease): Continue pantoprazole 40 mg daily metoprolol Present on Admission?: Yes (8) Diabetes: Hold glimepiride and metformin. Placed on Accu-Cheks before meals and at bedtime with NovoLog coverage per scale Present on Admission?: Yes (9) Hypertension: Continue metoprolol tartrate 100 mg p.o. twice daily, amlodipine 10 mg every morning, and lisinopril 40 mg daily. Present on Admission?: Yes (10) Rheumatoid arthritis: On monthly autoinjector in the outpatient setting. Hold prednisone 10 mg p.o. daily, and place on methylprednisolone 20 mg IV every 8 hours to deal with potential adrenal insufficiency and help with breathing Present on Admission?: Yes (11) Hyperlipidemia: Continue atorvastatin 10 mg daily Present on Admission?: Yes (12) MGUS (monoclonal gammopathy of unknown significance): Noted Present on Admission?: Yes History of Present Illness Chief Complaint: The patient presents to the emergency department with persistent generalized weakness, and shortness of breath over the past few days. Primary Care Provider: Nimo Stewart MD The patient is a 73-year-old male with a past medical history including hyperlipidemia, rheumatoid arthritis, MGUS, sleep apnea, GERD, CHF, pneumonia, diabetes mellitus, and hypertension, who presents to the emergency department with worsening pain lower extremity edema, shortness of breath, dyspnea on exertion and generalized malaise. Upon presentation to the emergency department, he was found to be acutely hypoxic, with readings to 45%, and was placed on mask at 6 to 8 L, which brought his oxygenation up to 95 to 97%. He denies any recent change in diet, including no additional sodium intake. He did have the same symptoms this time last year, as his notes. Allergies Allergy/AdvReac Type Severity Reaction Status Date / Time codeine Allergy Intermediate HIVES--PT Verified 04/07/19 22:33 DOES NOT USE PERCOCET Home Medications Home Medications Medication Instructions Recorded Confirmed Type amlodipine 10 mg PO QAM 03/30/18 04/07/19 History atorvastatin 10 mg PO DAILY 03/30/18 04/07/19 History cholecalciferol (vitamin D3) 1,000 unit PO DAILY 03/30/18 04/07/19 History [Vitamin D3] clobetasol 1 applic TOPICAL BID PRN 03/30/18 04/07/19 History clotrimazole 1 applic TOPICAL BID PRN 03/30/18 04/07/19 History metformin 500 mg PO BID 03/30/18 04/07/19 History pantoprazole 40 mg PO DAILY 03/30/18 04/07/19 History furosemide 40 mg PO DAILY #30 tab 04/01/18 04/07/19 Rx lisinopril 40 mg tablet 40 mg PO DAILY #90 tab 12/04/18 04/07/19 Rx glimepiride 2 mg tablet 2 mg PO BID #180 tab 12/16/18 04/07/19 Rx metoprolol tartrate 100 mg tablet 100 mg PO BID #180 tab 12/16/18 04/07/19 Rx potassium chloride ER 10 mEq 10 meq PO DAILY #30 cap 12/29/18 04/07/19 Rx capsule,extended release gabapentin 100 mg capsule 100 mg PO DAILY cap 02/05/19 04/07/19 History ixekizumab 80 mg/mL subcutaneous 80 mg SQ MONTHLY ml 02/05/19 04/07/19 History auto-injector prednisone 10 mg tablet 10 mg PO DAILY tab 02/05/19 04/07/19 History Past Med/Surg History Medical History Rheumatoid arthritis MGUS (monoclonal gammopathy of unknown significance) Sleep apnea Diabetes (Chronic) Hypertension (Chronic) Arthritis Hyperlipidemia Neuropathy Surgical History History of arthroplasty of right shoulder History of bilateral knee replacement Hx of appendectomy Hx of cholecystectomy Hx of hernia repair Family History Other Family history non-contributory Social History Preferred Language: Irish Communication Ability: Effective Rfid Strategist Required: No Beliefs That Will Affect Care: None marital status: Current Living Situation: Spouse Other Information That Helps Us Care for You: No Feels Safe at Home: Yes Safety Concerns: Feels Safe At This Time Smoking Status: Never smoker Do You Dip or Chew Tobacco: No ; Second Hand Exposure: No ; Tobacco Cessation Education Requested by Patient: No Hx Alcohol Use: No Hx Substance Use: No Review of Systems Review of Systems: The patient denies palpitations, sore throat, fevers, chills, sweats, nausea, vomiting, diarrhea , constipation, abdominal pain, pelvic pain, blood in urine or stool, dysuria, urinary frequency or urgency, lightheadedness, dizziness, headache, memory loss, loss of consciousness, rash, abnormal bruising or bleeding, imbalance, focal weakness, numbness or tingling in arms or legs, back or neck pain, or night sweats. The review of systems is otherwise negative other than for that already noted above, and at least 10 systems have been reviewed. Physical Exam Physical Exam: The patient is at the time of my examination, after oxygen resuscitation, awake, alert and oriented 3, normocephalic and atraumatic, sitting upright in bed and in mild respiratory distress. HEENT--PERRL, EOMI, mucous membranes and oropharynx dry. Neck--No JVD. No bruits. Thyroid normal, trachea midline, no adenopathy. Heart--normal S1 and S2. No murmurs, rubs or gallops. Lungs--diminished throughout with scattered wheezes, mild respiratory distress, no accessory muscle use. Abdomen--normal bowel sounds and soft. Nontender. Nondistended. Morbidly obese Extremities--no cyanosis or clubbing. 2-3+ bilateral pretibial pitting edema. Dermatologic--normal skin turgor, normal color, no abnormal lymph nodes, no rash. Neurologic--cranial nerves II through XII grossly intact. Rheumatologic--limited by body habitus Psychiatric--normal affect. Results & Data Vital Signs (Past 12 Hours) Vital Signs Temp Pulse Pulse Pulse Resp BP BP 04/08/19 03:05 98.8 F 71 22 168/75 H 04/07/19 23:52 99.0 F 79 24 154/69 H 04/07/19 23:15 80 28 H 137/52 L 04/07/19 22:07 99 H 24 155/78 H 04/07/19 21:20 95 H 19 155/78 H 04/07/19 20:42 80 23 164/55 H 04/07/19 20:10 04/07/19 19:47 04/07/19 19:40 97.9 F 81 18 120/77 Pulse Ox 04/08/19 03:05 90 04/07/19 23:52 90 04/07/19 23:15 92 04/07/19 22:07 93 04/07/19 21:20 93 04/07/19 20:42 99 04/07/19 20:10 96 04/07/19 19:47 45 L 04/07/19 19:40 Laboratory Results Laboratory Results WBC 14.23 K/uL (4.8-10.8) H 04/07/19 19:11 RBC 4.53 M/uL (4.7-6.1) L 04/07/19 19:11 Hgb 11.9 g/dL (14.0-18.0) L 04/07/19 19:11 Hct 38.3 % (42-52) L 04/07/19 19:11 MCV 84.5 fL (80-100) 04/07/19 19:11 MCH 26.3 pg (25-34) 04/07/19 19:11 MCHC 31.1 g/dL (32-36) L 04/07/19 19:11 RDW Std Deviation 52.5 fL (36.4-46.3) H 04/07/19 19:11 RDW Coeff of Tony 16.9 % (11.5-14.5) H 04/07/19 19:11 Plt Count 291 K/uL (130-400) 04/07/19 19:11 MPV 9.9 fL (7.4-10.4) 04/07/19 19:11 Immature Gran % (Auto) 0.4 % 04/07/19 19:11 Neut % (Auto) 71.4 % 04/07/19 19:11 Lymph % (Auto) 20.0 % 04/07/19 19:11 [place] % (Auto) 7.1 % 04/07/19 19:11 Eos % (Auto) 0.9 % 04/07/19 19:11 Baso % (Auto) 0.2 % 04/07/19 19:11 Immature Gran # (Auto) 0.05 K/uL (0.00-0.02) H 04/07/19 19:11 Neut # (Auto) 10.17 K/uL (1.4-6.5) H 04/07/19 19:11 Lymph # (Auto) 2.84 K/uL (1.2-3.4) 04/07/19 19:11 [place] # (Auto) 1.01 K/uL (0.11-0.59) H 04/07/19 19:11 Eos # (Auto) 0.13 K/uL (0-0.5) 04/07/19 19:11 Baso # (Auto) 0.03 K/uL (0-0.2) 04/07/19 19:11 PT 10.7 Seconds (9.0-12.0) 04/07/19 19:11 INR 1.0 (0.9-1.1) 04/07/19 19:11 APTT 21.4 Seconds (21.0-31.0) 04/07/19 19:11 PTT Ratio 0.8 04/07/19 19:11 Sodium 138 mmol/L (136-145) 04/07/19 19:11 Potassium 4.0 mmol/L (3.5-5.1) 04/07/19 19:11 Chloride 99 mmol/L (98-107) 04/07/19 19:11 Carbon Dioxide 35 mmol/L (21-32) H 04/07/19 19:11 Anion Gap 4.0 (3-11) 04/07/19 19:11 BUN 22 mg/dl (7-18) H 04/07/19 19:11 Creatinine 1.13 mg/dl (0.6-1.4) 04/07/19 19:11 Est Cr Clr Drug Dosing Not Reportable 04/07/19 19:11 Est GFR ( Amer) 73.3 04/07/19 19:11 Est GFR (Non-Af Amer) 63.2 04/07/19 19:11 BUN/Creatinine Ratio 19.4 (10-20) 04/07/19 19:11 Glucose 112 mg/dl (70-99) H 04/07/19 19:11 Lactate 1.4 mmol/L (0.4-2.0) 04/07/19 19:56 Calcium 9.1 mg/dl (8.5-10.1) 04/07/19 19:11 Total Bilirubin 0.7 mg/dl (0.2-1) 04/07/19 19:11 AST 19 U/L (15-37) 04/07/19 19:11 ALT 26 U/L (12-78) 04/07/19 19:11 Alkaline Phosphatase 58 U/L (45-117) 04/07/19 19:11 Troponin I 0.134 ng/ml (0-0.045) H* 04/07/19 19:11 Total Protein 8.3 gm/dl (6.4-8.2) H 04/07/19 19:11 Albumin 3.4 gm/dl (3.4-5.0) 04/07/19 19:11 Globulin 4.9 gm/dl (2.5-4.0) H 04/07/19 19:11 Albumin/Globulin Ratio 0.7 (0.9-2) L 04/07/19 19:11 Diagnostic Findings [facility] [place], [place] [phone] XRay Report Patient: HINA ALEXAdmit Date: 04/07/18 MR#: [id number]: [address] Acct ID:[id number]: Date: [address] [place] [address] Zip: [place] [address] Age: 72Location: ED Sex: M Room/Bed: Att Phy:Diagnosis: FALL Libby Phy: Nimo Stewart M.D.Service Date: 04/07/18 Fam Phy: Perico Gonzalez M.D.Interpreting Phy: Yunier Mcgregor Admit Phy: Ordering Phy: Yuko Flynn D.Jose L cc: ~ XR chest 1V portable HISTORY: 72 years-old Male weakness acute fall with weakness. Acute shortness of breath with history of congestive heart failure COMPARISON: Chest radiograph 03/30/2018 TECHNIQUE: Portable AP view of the chest FINDINGS: Cardiac silhouette is enlarged, unchanged. Widening of the mediastinum is unchanged. Pulmonary vascular congestion with mild interstitial coarsening. No pneumothorax, or large pleural effusion. No overt pulmonary edema. Subsegmental left basilar opacities suggest atelectasis. Degenerative changes of the shoulders and spine. iMPRESSION: Cardiomegaly with pulmonary vascular congestion. The above report was generated using voice recognition software. It may contain grammatical, syntax or spelling errors. Electronically signed by: Tomasz Mcgregor M.D. 04/07/2018 6:31 AM [facility] [place], [place] [phone] CT Scan Report Patient: HINA ALEXAdmit Date: 04/07/18 MR#: [id number]: [address] [facility] Acct ID:[id number]: Date: [address] [place] [address] Zip: [place] [address] Age: 72Location: ED Sex: M Room/Bed: Att Phy:Diagnosis: FALL Libby Phy: Nimo Stewart M.D.Service Date: 04/07/18 Fam Phy: Perico Gonzalez M.D.Interpreting Phy: Vijay Reynoso MD Admit Phy: Ordering Phy: Yuko Flynn D.Jose L cc: ~ HEAD CT NONCONTRAST CT DOSE: 537.48 mGy.cm HISTORY: eval for trauma TECHNIQUE: Multiaxial CT images of the head were performed without the use of intravenous contrast. Automated exposure control was utilized for this study. A dose lowering technique was utilized adhering to the principles of ALARA. Comparison: Head CT 02/05/2014. Findings: The paranasal sinuses and mastoid air cells are clear. The calvarium and skull base are intact. There is no mass, hematoma, midline shift, acute i nfarct. White matter hypodensity is nonspecific but suggestive of microvascular ischemic change. The ventricles and sulci demonstrate mild age-related involutional changes. Mild right lateral scalp swelling. Cavum septa pellucida is again noted. Impression: No acute intracranial abnormality. Atrophy and microvascular ischemic changes. Electronically signed by: Vijay Reynoso M.D. 04/07/2018 7:09 AM Dictated: 04/07/18705 Transcribed: 04/07/18705 [place], [place] [phone] XRay Report Patient: HINA ALEX AAdmit Date: 04/07/19 MR#: [id number]: [address] [facility] Acct ID:[id number]: Date: 1945[facility] Zip: [place] [address] Age: 73Location: ED Sex: M Room/Bed: Att Phy:Diagnosis: VOMITING, SOB, WEAK, DID HAVE CHEST PAIN Libby Phy: Nimo Stewart MDService Date: 04/07/19 Fam Phy:Interpreting Phy: Vijay Reynoso MD Admit Phy: Ordering Phy: Rajendra Sprague M.D. cc: ~ XR chest 1V portable HISTORY: Sepsis COMPARISON: Chest 04/07/2018. FINDINGS: The heart remains enlarged. There are low lung volumes. There is mild central pulmonary vascular congestion without overt edema. No pleural effusions. No pneumothorax. A few bibasilar linear densities. IMPRESSION: 1. Cardiomegaly with mild central pulmonary vascular congestion. 2. Low lung volumes and bibasilar linear densities. These are nonspecific but favor subsegmental atelectasis. Electronically signed by: Vijay Reynoso M.D. 04/07/2019 8:39 PM Dictated: 04/07/192036 Transcribed: 04/07/192036 Code Status & VTE Plan Code Status Full code VTE Prophylaxis Plan VTE Prophylaxis will be ordered: Yes PG Care Time/CCT Total # of Minutes Spent Total Time Spent with Patient: Total time spent is greater than 50% in coordination of care (as documented) at patient's floor/unit and/or counseling patient:
[2019-04-08] MEDS: HEPARIN SOD 5,000 UNIT/0.5 ML VIAL SQ SCH ×3 (06:21→21:38)
[2019-04-08 06:42] LABS: Estimated Average Glucose 166 mg/dl; Hemoglobin A1C 7.4 % (4.5-5.6)
[2019-04-08] MEDS ORDERED: PERFLUTREN LIPID MICROSPHERE (DEFINITY) IV ONE (06:50)
[2019-04-08] MEDS: ALBUT/IPRATROP 3MG/0.5MG NEB 3 ML VIAL NEB SCH ×4 (07:07→19:03)
[2019-04-08 07:08] LABS: Troponin I 0.113 ng/ml (0-0.045)
[2019-04-08] MEDS: PANTOprazole 40 MG TAB PO SCH (08:11)
[2019-04-08] MEDS: CHOLECALCIFEROL 1,000 UNITS TAB PO SCH (08:11)
[2019-04-08] MEDS: LISINOPRIL 40 MG TAB PO SCH (08:11)
[2019-04-08] MEDS: GABAPENTIN 100 MG CAP PO SCH (08:11)
[2019-04-08] MEDS: AMLODIPINE BESYLATE 5 MG TAB PO SCH (08:11)
[2019-04-08] MEDS: POTASSIUM CHLORIDE 10 MEQ TABCR PO SCH (08:11)
[2019-04-08] MEDS: ATORVASTATIN 10 MG TAB PO SCH (08:11)
[2019-04-08] MEDS: INSULIN ASPART 100 UNITS/ML 3 ML PEN SC SCH ×4 (08:14→21:40)
[2019-04-08 08:22] LABS: Basophils # (auto) 0.01 K/uL (0-0.2); Basophils % (auto) 0.1 %; Hemoglobin 11.5 g/dL (14.0-18.0); Immature Granulocytes # (auto) 0.06 K/uL (0.00-0.02); Immature Granulocytes % (auto) 0.6 %; Lymphocytes % (auto) 7.6 %; Mean Corpuscular Hemoglobin 25.8 pg (25-34); Mean Corpuscular Hgb Conc 29.5 g/dL (32-36); Mean Corpuscular Volume 87.6 fL (80-100); Mean Platelet Volume 10.4 fL (7.4-10.4); Monocytes # (auto) 0.19 K/uL (0.11-0.59); Monocytes % (auto) 1.8 %; Neutrophils # (auto) 9.42 K/uL (1.4-6.5); Neutrophils % (auto) 89.9 %; Platelet Count 253 K/uL (130-400); RDW Coefficient of Variation 16.7 % (11.5-14.5); RDW Standard Deviation 54.3 fL (36.4-46.3); Red Blood Count 4.45 M/uL (4.7-6.1); White Blood Count 10.48 K/uL (4.8-10.8)
[2019-04-08 08:47] LABS: BUN Creatinine Ratio 19.9 (10-20); Calcium 8.7 mg/dl (8.5-10.1); Creatinine Clr Calc Pharmacy 69.9 ml/min; Est GFR (African American) 68.8; Est GFR (Non-African American) 59.4; Potassium 5.2 mmol/L (3.5-5.1)
[2019-04-08] MEDS ORDERED: FUROSEMIDE 40 MG in SYRINGE 0 ML IV SCH ×2 (09:00→21:00)
[2019-04-08] MEDS ORDERED: FUROSEMIDE 40 MG TAB PO SCH (09:00)
[2019-04-08] MEDS: methylPREDNISolone 20 MG in SYRINGE 0 ML IV SCH ×3 (09:23→23:21)
--- NOTE | 2019-04-08 10:24 | Cardiology Consultation ---
Date of Consultation April 08, 2019 Assessment & Plan (1) CHF (congestive heart failure): (2) COPD (chronic obstructive pulmonary disease): (3) Obesity hypoventilation syndrome: (4) Elevated troponin: (5) Hypoxia: Patient with history of chronic hypoxia, pulmonary hypertension, severe sleep apnea, obesity hypoventilation syndrome and chronic diastolic CHF admitted yesterday with shortness of breath and hypoxia. Patient with only modest diuresis so far (-450 cc) on IV Lasix 40 mg daily. He appears hypervolemic on exam and consider increasing IV Lasix to BID dosing. Strict I&Os, daily weights and low sodium diet. Hypoxia likely multifactorial in nature. Troponin is mildly elevated (trending down) which is likely secondary to demand ischemia in setting of significant hypoxia rather than secondary to an acute event. Echo pending. Currently chest pain free. He does endorse chest tightness when walking longer distances which could be evaluated in the future with stress testing. Further recommendations pending evaluation by Dr. Gonzalez. Supervising Physician Co-Signing Physician Notes Patient was seen and examined and reviewed with Destini. I agree with above. We will need to diurese, he admits to not weighing himself lately and getting away from a water restriction. History of Present Illness Attending Physician: Himanshu Keating, History of Present Illness Mr. Campbell is a 73 year old male with a medical history significant for COPD, obesity hypoventilation syndrome, severe sleep apnea, pulmonary hypertension, chronic diastolic CHF, hypertension, rheumatoid arthritis, MGUS, and type [address] 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 Patient's was not present at the time of my exam and patient's ability to provide history is somewhat limited. He was admitted yesterday with shortness of breath and hypoxia. Upon arrival to the ED he was hypoxic with reported readings of 45%. O2 saturation improved with 6-8L supplemental O2. Chest xray shows mild pulmonary vascular congestion. He was started on IV Lasix 40 mg daily. His initial troponin was elevated at 0.134 and this morning was 0.113. Electrocardiogram shows possible anterior infarct. Patient reports improvement in his shortness of breath today. He is currently resting comfortably in bed. He does not recall if he experience any orthopnea or PND overnight. He denies any chest pain but does note that over the past several months he has experienced exertional chest tightness walking several 100 feet feet his horses. The symptoms resolve with rest. Per recent visit with Dr. Johnson patient stopped using CPAP and is not compliant with his O2 during the day. Social history: Patient lives with in [facility] [place]. No tobacco, alcohol or drug use. Allergies Allergy/AdvReac Type Severity Reaction Status Date / Time codeine Allergy Intermediate HIVES--PT Verified 04/07/19 22:33 DOES NOT USE PERCOCET Home Medications Home Medications Medication Instructions Recorded Confirmed Type amlodipine 10 mg PO QAM 03/30/18 04/07/19 History atorvastatin 10 mg PO DAILY 03/30/18 04/07/19 History cholecalciferol (vitamin D3) 1,000 unit PO DAILY 03/30/18 04/07/19 History [Vitamin D3] clobetasol 1 applic TOPICAL BID PRN 03/30/18 04/07/19 History clotrimazole 1 applic TOPICAL BID PRN 03/30/18 04/07/19 History metformin 500 mg PO BID 03/30/18 04/07/19 History pantoprazole 40 mg PO DAILY 03/30/18 04/07/19 History furosemide 40 mg PO DAILY #30 tab 04/01/18 04/07/19 Rx lisinopril 40 mg tablet 40 mg PO DAILY #90 tab 12/04/18 04/07/19 Rx glimepiride 2 mg tablet 2 mg PO BID #180 tab 12/16/18 04/07/19 Rx metoprolol tartrate 100 mg tablet 100 mg PO BID #180 tab 12/16/18 04/07/19 Rx potassium chloride ER 10 mEq 10 meq PO DAILY #30 cap 12/29/18 04/07/19 Rx capsule,extended release gabapentin 100 mg capsule 100 mg PO DAILY cap 02/05/19 04/07/19 History ixekizumab 80 mg/mL subcutaneous 80 mg SQ MONTHLY ml 02/05/19 04/07/19 History auto-injector prednisone 10 mg tablet 10 mg PO DAILY tab 02/05/19 04/07/19 History Patient History Medical History Rheumatoid arthritis MGUS (monoclonal gammopathy of unknown significance) Sleep apnea Diabetes (Chronic) Hypertension (Chronic) Arthritis Hyperlipidemia Neuropathy Surgical History History of arthroplasty of right shoulder History of bilateral knee replacement Hx of appendectomy Hx of cholecystectomy Hx of hernia repair Family History Other Family history non-contributory Social History Preferred Language: Hungarian Communication Ability: Effective Plant 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 Obese. Hypoxic on room air. HEENT: Head is normal. PERRLA. EOMI. Sclerae anicteric. Ears, nose and throat unremarkable. Mucous membranes moist. Neck: Normal carotid upstrokes, no bruits. JVD is difficult to assess given thick neck. Lungs: Bibasilar crackles. Cardiac: Regular rate and rhythm. S1-S2 normal. No appreciable murmur, gallop or rub. Abdomen: Soft and nontender. Bowel sounds normal. No mass or organomegaly. No abdominal bruit. Extremities/vascular: -- Well perfused. 1-2+ edema to the knees bilaterally --Radial, DP and PT pulses 2+ bilaterally --Hyperpigmentation, varicosities bilaterally --No ulcerations Results & Data Vital Signs (Past 12 Hours) Vital Signs Temp Pulse Pulse Pulse Resp BP Pulse Ox 04/08/19 07:53 70 04/08/19 07:20 36.8 C 63 20 135/66 93 04/08/19 07:07 63 18 93 04/08/19 03:05 37.1 C 71 22 168/75 H 90 04/07/19 23:52 37.2 C 79 24 154/69 H 90 04/07/19 23:15 80 28 H 137/52 L 92 Laboratory Results Laboratory Results - last 24 hr 04/07/19 04/07/19 04/07/19 19:11 19:11 19:11 WBC 14.23 H RBC 4.53 L Hgb 11.9 L Hct 38.3 L MCV 84.5 MCH 26.3 MCHC 31.1 L RDW Std Deviation 52.5 H RDW Coeff of Tony 16.9 H Plt Count 291 MPV 9.9 Immature Gran % (Auto) 0.4 Neut % (Auto) 71.4 Lymph % (Auto) 20.0 [place] % (Auto) 7.1 Eos % (Auto) 0.9 Baso % (Auto) 0.2 Immature Gran # (Auto) 0.05 H Neut # (Auto) 10.17 H Lymph # (Auto) 2.84 [place] # (Auto) 1.01 H Eos # (Auto) 0.13 Baso # (Auto) 0.03 PT 10.7 INR 1.0 APTT 21.4 PTT Ratio 0.8 Sodium 138 Potassium 4.0 Chloride 99 Carbon Dioxide 35 H Anion Gap 4.0 BUN 22 H Creatinine 1.13 Est Cr Clr Drug Dosing Not Reportable Est GFR ( Amer) 73.3 Est GFR (Non-Af Amer) 63.2 BUN/Creatinine Ratio 19.4 Glucose 112 H POC Glucose Estimat Average Glucose Hemoglobin A1c Lactate Calcium 9.1 Total Bilirubin 0.7 AST 19 ALT 26 Alkaline Phosphatase 58 Troponin I 0.134 H* Total Protein 8.3 H Albumin 3.4 Globulin 4.9 H Albumin/Globulin Ratio 0.7 L Triglycerides Cholesterol LDL Cholesterol, Calc VLDL Cholesterol, Calc HDL Cholesterol Cholesterol/HDL Ratio 04/07/19 04/08/19 04/08/19 19:56 06:06 06:06 WBC RBC Hgb Hct MCV MCH MCHC RDW Std Deviation RDW Coeff of Tony Plt Count MPV Immature Gran % (Auto) Neut % (Auto) Lymph % (Auto) [place] % (Auto) Eos % (Auto) Baso % (Auto) Immature Gran # (Auto) Neut # (Auto) Lymph # (Auto) [place] # (Auto) Eos # (Auto) Baso # (Auto) PT INR APTT PTT Ratio Sodium Potassium Chloride Carbon Dioxide Anion Gap BUN Creatinine Est Cr Clr Drug Dosing Est GFR ( Amer) Est GFR (Non-Af Amer) BUN/Creatinine Ratio Glucose POC Glucose Estimat Average Glucose 166 Hemoglobin A1c 7.4 H Lactate 1.4 Calcium Total Bilirubin AST ALT Alkaline Phosphatase Troponin I 0.113 H* Total Protein Albumin Globulin Albumin/Globulin Ratio Triglycerides 100 Cholesterol 129 LDL Cholesterol, Calc 68 VLDL Cholesterol, Calc 20 HDL Cholesterol 41 Cholesterol/HDL Ratio 3 04/08/19 04/08/19 04/08/19 06:06 06:06 07:22 WBC 10.48 RBC 4.45 L Hgb 11.5 L Hct 39.0 L MCV 87.6 MCH 25.8 MCHC 29.5 L RDW Std Deviation 54.3 H RDW Coeff of Tony 16.7 H Plt Count 253 MPV 10.4 Immature Gran % (Auto) 0.6 Neut % (Auto) 89.9 Lymph % (Auto) 7.6 [place] % (Auto) 1.8 Eos % (Auto) 0.0 Baso % (Auto) 0.1 Immature Gran # (Auto) 0.06 H Neut # (Auto) 9.42 H Lymph # (Auto) 0.80 L [place] # (Auto) 0.19 Eos # (Auto) 0.00 Baso # (Auto) 0.01 PT INR APTT PTT Ratio Sodium 137 Potassium 5.2 H D Chloride 99 Carbon Dioxide 36 H Anion Gap 2.0 L BUN 24 H Creatinine 1.19 Est Cr Clr Drug Dosing 69.9 Est GFR ( Amer) 68.8 Est GFR (Non-Af Amer) 59.4 BUN/Creatinine Ratio 19.9 Glucose 211 H POC Glucose 204 H Estimat Average Glucose Hemoglobin A1c Lactate Calcium 8.7 Total Bilirubin AST ALT Alkaline Phosphatase Troponin I Total Protein Albumin Globulin Albumin/Globulin Ratio Triglycerides Cholesterol LDL Cholesterol, Calc VLDL Cholesterol, Calc HDL Cholesterol Cholesterol/HDL Ratio ECG Additional Comments: EKG sinus rhythm with possible anterior infarct Telemetry reviewed-- sinus rhythm PG Care Time/CCT Total # of Minutes Spent Total Time Spent with Patient: Total time spent is greater than 50% in coordination of care (as documented) at patient's floor/unit and/or counseling patient: (1) CHF (congestive heart failure) Heart failure chronicity: unspecified Heart failure type: unspecified Qualified Code(s): I50.9 - Heart failure, unspecified
[2019-04-08 15:12] LABS: BUN Creatinine Ratio 20.1 (10-20); Calcium 8.7 mg/dl (8.5-10.1); Creatinine Clr Calc Pharmacy 55.8 ml/min; Est GFR (African American) 52.5; Est GFR (Non-African American) 45.3; Potassium 4.8 mmol/L (3.5-5.1)
--- NOTE | 2019-04-08 16:12 | Hospitalist Progress Note ---
Date of Service April 08, 2019 Assessment & Plan (1) Acute on chronic heart failure with normal ejection fraction: patient does not weigh himself, does not follow fluid restriction educated on importance of daily weights and fluid restriction, salt restriction, compliance with medications diuresing modestly with Lasix 40mg IV would like to give additional dose but Cr up to 1.49 from 1.1, will hold on until tomorrow morning K is down to 4.8 heart failure clinic notified of his admission, they will follow up with him (2) Hypoxia: Patient presented to the emergency department acutely hypoxic, improved with placement on mask. most likely acute on chronic heart failure with preserved EF breathing much better after diuresis with Lasix 40mg IV (3) Bilateral lower extremity edema: improved a lot after Lasix IV repeat dose tomorrow (4) Elevated troponin: Troponin elevated at 0.134 upon admission, trended down to 0.7 no chest pain no wall motion abnormalities on echo no further work up at this time (5) COPD (chronic obstructive pulmonary disease): Place on Duonebs every 4 hours while awake and every 2 hours as needed. Solu-Medrol 20 mg IV every 8 hours, to address inflammation and prevent adrenal insufficiency. Try to taper mask to nasal cannula as at home. (6) Obesity hypoventilation syndrome: Obesity hypoventilation syndrome- Contributing to daily respiratory difficulties and sleep apnea at night. Discussion regarding weight management (7) Sleep apnea: He has not been able to tolerate CPAP at night time, and no longer sees Dr. Johnson. (8) GERD (gastroesophageal reflux disease): Continue pantoprazole 40 mg daily metoprolol (9) Diabetes: Hold glimepiride and metformin. Placed on Accu-Cheks before meals and at bedtime with NovoLog coverage per scale (10) Hypertension: Continue metoprolol tartrate 100 mg p.o. twice daily, amlodipine 10 mg every morning, and lisinopril 40 mg daily. (11) Rheumatoid arthritis: On monthly autoinjector in the outpatient setting. Hold prednisone 10 mg p.o. daily, and place on methylprednisolone 20 mg IV every 8 hours to deal with potential adrenal insufficiency and help with breathing (12) Hyperlipidemia: Continue atorvastatin 10 mg daily (13) MGUS (monoclonal gammopathy of unknown significance): Noted (14) Hyperkalemia: up at 5.1 this morning down to 4.8 with Lasix IV Subjective patient is feeling better, says that he made a lot of urine in response to the Lasix he admits that he does not weigh himself, he used to do it his feels like he gained weight, certainly he had edema in his legs he does not follow fluid restrictions, he drinks a lot of iced tea during the day he tries to watch his salt intake and his is good at helping him with that labs show Cr of 1.49 (up from 1.1) and K down to 4.8 from 5.2 appreciate consultation from cardiology on I/O he is only negative 350cc, unsure how accurate that is since he says he made a lot of urine Review of Systems Review of Systems: All systems reviewed & are unremarkable except as noted in HPI & below Constitutional: + fatigue; no fever Respiratory: + dyspnea on exertion; no cough and no dyspnea Cardiovascular: + dyspnea on exertion; no chest pain, no dyspnea, no orthopnea, no palpitations and no edema Gastrointestinal: no abdominal pain, no nausea, no vomiting, no constipation and no diarrhea/loose stools Physical Exam Constitutional: WD/WN, vitals as above + overweight Eyes: PERRL, conjunctivae normal, anicteric sclerae ENMT: external ear and nose normal, oropharynx normal Neck: trachea midline, no thyromegaly Respiratory: normal respiratory effort, lungs clear to auscultation Cardiovascular: Rate/Rhythm: regular rate and regular rhythm Heart Sounds: normal S1 and normal S2; no murmur Vessels: no JVD Extremities: normal capillary refill and + edema (trace bilaterally) Gastrointestinal (Abdomen): normal bowel sounds, soft, nontender, no hepatosplenomegaly Musculoskeletal: no cyanosis or clubbing, extremities motor strength 5/5 Skin: no rashes, warm and dry Neurologic: patellar DTR's 2+ bilat, sensation intact and PERRL, EOMI, accommodation nl, no face palsy, no dysarthria Psychiatric: A+Ox3, euthymic affect Lymphatic: no cervical or axillary lymphadenopathy Results & Data Vital Signs (Past 12 Hours) Vital Signs Temp Pulse Pulse Pulse Resp BP Pulse Ox 04/08/19 15:42 59 L 04/08/19 15:11 86 18 91 04/08/19 15:09 36.5 C 55 L 19 152/73 H 90 04/08/19 11:20 36.2 C L 67 20 132/67 94 04/08/19 11:16 58 L 16 50 L 04/08/19 07:53 70 04/08/19 07:20 36.8 C 63 20 135/66 93 04/08/19 07:07 63 18 93 Laboratory Results Laboratory Results - last 24 hr 04/07/19 04/07/19 04/07/19 19:11 19:11 19:11 WBC 14.23 H RBC 4.53 L Hgb 11.9 L Hct 38.3 L MCV 84.5 MCH 26.3 MCHC 31.1 L RDW Std Deviation 52.5 H RDW Coeff of Tony 16.9 H Plt Count 291 MPV 9.9 Immature Gran % (Auto) 0.4 Neut % (Auto) 71.4 Lymph % (Auto) 20.0 [place] % (Auto) 7.1 Eos % (Auto) 0.9 Baso % (Auto) 0.2 Immature Gran # (Auto) 0.05 H Neut # (Auto) 10.17 H Lymph # (Auto) 2.84 [place] # (Auto) 1.01 H Eos # (Auto) 0.13 Baso # (Auto) 0.03 PT 10.7 INR 1.0 APTT 21.4 PTT Ratio 0.8 Sodium 138 Potassium 4.0 Chloride 99 Carbon Dioxide 35 H Anion Gap 4.0 BUN 22 H Creatinine 1.13 Est Cr Clr Drug Dosing Not Reportable Est GFR ( Amer) 73.3 Est GFR (Non-Af Amer) 63.2 BUN/Creatinine Ratio 19.4 Glucose 112 H POC Glucose Estimat Average Glucose Hemoglobin A1c Lactate Calcium 9.1 Total Bilirubin 0.7 AST 19 ALT 26 Alkaline Phosphatase 58 Troponin I 0.134 H* Total Protein 8.3 H Albumin 3.4 Globulin 4.9 H Albumin/Globulin Ratio 0.7 L Triglycerides Cholesterol LDL Cholesterol, Calc VLDL Cholesterol, Calc HDL Cholesterol Cholesterol/HDL Ratio 04/07/19 04/08/19 04/08/19 19:56 06:06 06:06 WBC RBC Hgb Hct MCV MCH MCHC RDW Std Deviation RDW Coeff of Tony Plt Count MPV Immature Gran % (Auto) Neut % (Auto) Lymph % (Auto) [place] % (Auto) Eos % (Auto) Baso % (Auto) Immature Gran # (Auto) Neut # (Auto) Lymph # (Auto) [place] # (Auto) Eos # (Auto) Baso # (Auto) PT INR APTT PTT Ratio Sodium Potassium Chloride Carbon Dioxide Anion Gap BUN Creatinine Est Cr Clr Drug Dosing Est GFR ( Amer) Est GFR (Non-Af Amer) BUN/Creatinine Ratio Glucose POC Glucose Estimat Average Glucose 166 Hemoglobin A1c 7.4 H Lactate 1.4 Calcium Total Bilirubin AST ALT Alkaline Phosphatase Troponin I 0.113 H* Total Protein Albumin Globulin Albumin/Globulin Ratio Triglycerides 100 Cholesterol 129 LDL Cholesterol, Calc 68 VLDL Cholesterol, Calc 20 HDL Cholesterol 41 Cholesterol/HDL Ratio 3 04/08/19 04/08/19 04/08/19 06:06 06:06 07:22 WBC 10.48 RBC 4.45 L Hgb 11.5 L Hct 39.0 L MCV 87.6 MCH 25.8 MCHC 29.5 L RDW Std Deviation 54.3 H RDW Coeff of Tony 16.7 H Plt Count 253 MPV 10.4 Immature Gran % (Auto) 0.6 Neut % (Auto) 89.9 Lymph % (Auto) 7.6 [place] % (Auto) 1.8 Eos % (Auto) 0.0 Baso % (Auto) 0.1 Immature Gran # (Auto) 0.06 H Neut # (Auto) 9.42 H Lymph # (Auto) 0.80 L [place] # (Auto) 0.19 Eos # (Auto) 0.00 Baso # (Auto) 0.01 PT INR APTT PTT Ratio Sodium 137 Potassium 5.2 H D Chloride 99 Carbon Dioxide 36 H Anion Gap 2.0 L BUN 24 H Creatinine 1.19 Est Cr Clr Drug Dosing 69.9 Est GFR ( Amer) 68.8 Est GFR (Non-Af Amer) 59.4 BUN/Creatinine Ratio 19.9 Glucose 211 H POC Glucose 204 H Estimat Average Glucose Hemoglobin A1c Lactate Calcium 8.7 Total Bilirubin AST ALT Alkaline Phosphatase Troponin I Total Protein Albumin Globulin Albumin/Globulin Ratio Triglycerides Cholesterol LDL Cholesterol, Calc VLDL Cholesterol, Calc HDL Cholesterol Cholesterol/HDL Ratio 04/08/19 04/08/19 04/08/19 11:19 13:12 14:29 WBC RBC Hgb Hct MCV MCH MCHC RDW Std Deviation RDW Coeff of Tony Plt Count MPV Immature Gran % (Auto) Neut % (Auto) Lymph % (Auto) [place] % (Auto) Eos % (Auto) Baso % (Auto) Immature Gran # (Auto) Neut # (Auto) Lymph # (Auto) [place] # (Auto) Eos # (Auto) Baso # (Auto) PT INR APTT PTT Ratio Sodium 134 L Potassium 4.8 Chloride 97 L Carbon Dioxide 34 H Anion Gap 3.0 BUN 30 H Creatinine 1.49 H D Est Cr Clr Drug Dosing 55.8 Est GFR ( Amer) 52.5 Est GFR (Non-Af Amer) 45.3 BUN/Creatinine Ratio 20.1 H Glucose 227 H POC Glucose 225 H Estimat Average Glucose Hemoglobin A1c Lactate Calcium 8.7 Total Bilirubin AST ALT Alkaline Phosphatase Troponin I 0.074 H* Total Protein Albumin Globulin Albumin/Globulin Ratio Triglycerides Cholesterol LDL Cholesterol, Calc VLDL Cholesterol, Calc HDL Cholesterol Cholesterol/HDL Ratio 04/08/19 16:13 WBC RBC Hgb Hct MCV MCH MCHC RDW Std Deviation RDW Coeff of Tony Plt Count MPV Immature Gran % (Auto) Neut % (Auto) Lymph % (Auto) [place] % (Auto) Eos % (Auto) Baso % (Auto) Immature Gran # (Auto) Neut # (Auto) Lymph # (Auto) [place] # (Auto) Eos # (Auto) Baso # (Auto) PT INR APTT PTT Ratio Sodium Potassium Chloride Carbon Dioxide Anion Gap BUN Creatinine Est Cr Clr Drug Dosing Est GFR ( Amer) Est GFR (Non-Af Amer) BUN/Creatinine Ratio Glucose POC Glucose 210 H Estimat Average Glucose Hemoglobin A1c Lactate Calcium Total Bilirubin AST ALT Alkaline Phosphatase Troponin I Total Protein Albumin Globulin Albumin/Globulin Ratio Triglycerides Cholesterol LDL Cholesterol, Calc VLDL Cholesterol, Calc HDL Cholesterol Cholesterol/HDL Ratio Medications Administered Current Inpatient Medications Acetaminophen (Tylenol) 650 mg PO Q4H PRN PRN Reason: Pain or Fever Stop: 05/08/19 00:08 Al Hydrox/Mg Hydrox/Simethicone (Maalox) 15 ml PO Q4H PRN PRN Reason: Dyspepsia Stop: 05/08/19 00:08 Albuterol (Duoneb) 3 ml NEB QIDR [place] Stop: 05/08/19 06:59 Last Admin: 04/08/19 15:11 Dose: 3 ml Documented by: Amlodipine Besylate (Norvasc) 10 mg PO QAM [facility] Stop: 05/08/19 08:59 Last Admin: 04/08/19 08:11 Dose: 10 mg Documented by: Atorvastatin Calcium (Lipitor) 10 mg PO DAILY [place] Stop: 05/08/19 08:59 Last Admin: 04/08/19 08:11 Dose: 10 mg Documented by: Clobetasol Propionate (Clobetasol Propionate Oint) 1 appln EXT BID PRN PRN Reason: BREAKOUTS Dextrose (Dextrose 50%) 25 - 50 ml IV UD PRN; Protocol PRN Reason: Hypoglycemia Protocol Stop: 05/08/19 00:08 Gabapentin (Neurontin) 100 mg PO DAILY [place] Stop: 05/08/19 08:59 Last Admin: 04/08/19 08:11 Dose: 100 mg Documented by: Glucagon (Glucagen) 1 mg SQ UD PRN; Protocol PRN Reason: Hypoglycemia Protocol Stop: 05/08/19 00:08 Glucose (Glucose 40%) 15 - 30 gm PO UD PRN; Protocol PRN Reason: Hypoglycemia Protocol Stop: 05/08/19 00:08 Glucose (Dex4 Glucose) 4 - 8 tabs PO UD PRN; Protocol PRN Reason: Hypoglycemia Protocol Stop: 05/08/19 00:08 Heparin Sodium (Porcine) (Heparin Sodium (Porcine)) 5,000 units SQ Q8 [place] Stop: 05/08/19 05:59 Last Admin: 04/08/19 15:50 Dose: 5,000 units Documented by: Methylprednisolone 20 mg/ (Syringe) 0.32 mls @ 1.5 mls/min IV Q8H [place] Stop: 05/08/19 07:59 Last Admin: 04/08/19 15:50 Dose: 1.5 mls/min Documented by: Furosemide 40 mg/ Syringe 4 mls @ 4 mls/min IV QAM [place] Stop: 05/09/19 08:59 Insulin Aspart (Novolog Flexpen) 0 units SC ACHS [place] Stop: 05/08/19 07:29 Last Admin: 04/08/19 12:32 Dose: 10 units Documented by: Lisinopril (Zestril) 40 mg PO DAILY [facility] Stop: 05/08/19 08:59 Last Admin: 04/08/19 08:11 Dose: 40 mg Documented by: Magnesium Hydroxide (Milk Of Magnesia) 30 ml PO Q12H PRN PRN Reason: Constipation Stop: 05/08/19 00:08 Metoprolol Tartrate (Lopressor) 100 mg PO BID [place] Stop: 05/08/19 00:08 Last Admin: 04/08/19 08:11 Dose: 100 mg Documented by: Miscellaneous (Carbohydrates For Hypoglycemia) 15 - 30 gm PO UD PRN PRN Reason: Hypoglycemia Protocol Stop: 05/08/19 00:08 Ondansetron HCl (Zofran) 4 mg IV Q6H PRN PRN Reason: Nausea Stop: 05/08/19 00:08 Pantoprazole Sodium (Protonix) 40 mg PO DAILY [place] Stop: 05/08/19 08:59 Last Admin: 04/08/19 08:11 Dose: 40 mg Documented by: Polyethylene Glycol (Miralax Powder Packet) 17 gm PO DAILY PRN PRN Reason: Constipation Stop: 05/08/19 00:08 Potassium Chloride (Klor-Con M10) 10 meq PO DAILY [place] Stop: 05/08/19 08:59 Last Admin: 04/08/19 08:11 Dose: 10 meq Documented by: Vitamin D (Vitamin D3) 1,000 units PO DAILY [place] Stop: 05/08/19 08:59 Last Admin: 04/08/19 08:11 Dose: 1,000 units Documented by: PG Care Time/CCT Total # of Minutes Spent Total Time Spent with Patient: Total time spent is greater than 50% in coordination of care (as documented) at patient's floor/unit and/or counseling patient:
[2019-04-09] MEDS: HEPARIN SOD 5,000 UNIT/0.5 ML VIAL SQ SCH ×3 (05:58→20:23)
[2019-04-09] MEDS: ALBUT/IPRATROP 3MG/0.5MG NEB 3 ML VIAL NEB SCH ×4 (07:16→19:19)
[2019-04-09] MEDS: PANTOprazole 40 MG TAB PO SCH (08:26)
[2019-04-09] MEDS: ATORVASTATIN 10 MG TAB PO SCH (08:26)
[2019-04-09] MEDS: CHOLECALCIFEROL 1,000 UNITS TAB PO SCH (08:26)
[2019-04-09] MEDS: LISINOPRIL 40 MG TAB PO SCH (08:26)
[2019-04-09] MEDS: METOPROLOL TARTRATE 100 MG TAB PO SCH ×2 (08:27→20:21)
[2019-04-09] MEDS: methylPREDNISolone 20 MG in SYRINGE 0 ML IV SCH (08:27)
[2019-04-09] MEDS: GABAPENTIN 100 MG CAP PO SCH (08:27)
[2019-04-09] MEDS: POTASSIUM CHLORIDE 10 MEQ TABCR PO SCH (08:27)
[2019-04-09] MEDS: FUROSEMIDE 40 MG in SYRINGE 0 ML IV SCH (08:27)
[2019-04-09] MEDS: AMLODIPINE BESYLATE 5 MG TAB PO SCH (08:27)
[2019-04-09] MEDS: INSULIN ASPART 100 UNITS/ML 3 ML PEN SC SCH ×4 (08:33→20:18)
[2019-04-09 09:12] LABS: BUN Creatinine Ratio 28.3 (10-20); Calcium 8.9 mg/dl (8.5-10.1); Est GFR (African American) 69.5; Potassium 4.5 mmol/L (3.5-5.1)
--- NOTE | 2019-04-09 09:44 | Hospitalist Progress Note ---
Date of Service April 09, 2019 Assessment & Plan (1) Acute on chronic systolic heart failure: echo shows EF is 45%, so EF is slightly reduced fluid restriction added at 1500cc/day, daily weights, strict I/O Lasix 40mg IV BID continue on Lisinopril and Metoprolol not much of a response yet, need to be more aggressive with diuresis and watch for response (2) Hypoxia: Patient presented to the emergency department acutely hypoxic, improved with placement on mask. most likely acute on chronic systolic heart failure breathing is better overall, ambulated to bathroom without oxygen (3) Bilateral lower extremity edema: improved a lot after Lasix IV continue Lasix IV BID (4) Elevated troponin: Troponin elevated at 0.134 upon admission, trended down to 0.7 no chest pain no wall motion abnormalities on echo no further work up at this time (5) COPD (chronic obstructive pulmonary disease): Place on Duonebs every 4 hours while awake and every 2 hours as needed. Solu-Medrol 20 mg IV every 8 hours, to address inflammation and prevent adrenal insufficiency. Try to taper mask to nasal cannula as at home. (6) Obesity hypoventilation syndrome: Obesity hypoventilation syndrome- Contributing to daily respiratory difficulties and sleep apnea at night. Discussion regarding weight management (7) Sleep apnea: He has not been able to tolerate CPAP at night time, and no longer sees Dr. Johnson. (8) GERD (gastroesophageal reflux disease): Continue pantoprazole 40 mg daily metoprolol (9) Diabetes: Hold glimepiride and metformin. Placed on Accu-Cheks before meals and at bedtime with NovoLog coverage per scale monitor for hypoglycemia (10) Hypertension: Continue metoprolol tartrate 100 mg p.o. twice daily, amlodipine 10 mg every morning, and lisinopril 40 mg daily. BP stable (11) Rheumatoid arthritis: On monthly autoinjector in the outpatient setting. resume Prednisone 10mg daily (12) Hyperlipidemia: Continue atorvastatin 10 mg daily (13) MGUS (monoclonal gammopathy of unknown significance): Noted (14) Hyperkalemia: resolved with Lasix Subjective patient is feeling a little better, still short of breath ambulated to the bathroom without too much dyspnea not making much urine in response to the Lasix weight has not really changed he admits that he drank a lot of water yesterday and over night, realized he was not on fluid restriction d/w cardiology, will give additional dose of Lasix this afternoon and look for d/c tomorrow reviewed labs, Cr is 1.1, K is 4.5 Review of Systems Review of Systems: All systems reviewed & are unremarkable except as noted in HPI & below Respiratory: + dyspnea on exertion; no cough Cardiovascular: + edema; no chest pain Gastrointestinal: no abdominal pain, no nausea, no vomiting, no constipation and no diarrhea/loose stools Physical Exam Constitutional: WD/WN, vitals as above + overweight Eyes: PERRL, conjunctivae normal, anicteric sclerae ENMT: external ear and nose normal, oropharynx normal Neck: trachea midline, no thyromegaly Respiratory: normal respiratory effort, lungs clear to auscultation Cardiovascular: Rate/Rhythm: regular rate and regular rhythm Heart Sounds: normal S1 and normal S2; no murmur Vessels: no JVD Extremities: normal capillary refill and + edema (trace bilaterally) Gastrointestinal (Abdomen): normal bowel sounds, soft, nontender, no hepatosplenomegaly Musculoskeletal: no cyanosis or clubbing, extremities motor strength 5/5 Skin: no rashes, warm and dry Neurologic: patellar DTR's 2+ bilat, sensation intact and PERRL, EOMI, accommodation nl, no face palsy, no dysarthria Psychiatric: A+Ox3, euthymic affect Lymphatic: no cervical or axillary lymphadenopathy Results & Data Vital Signs (Past 12 Hours) Vital Signs Temp Pulse Pulse Pulse Resp BP BP 04/09/19 08:00 72 04/09/19 07:59 36.9 C 64 22 141/56 H 04/09/19 07:18 62 18 04/09/19 03:49 36.3 C L 71 20 167/75 H 04/09/19 00:24 72 04/08/19 23:41 36.7 C 63 20 152/73 H Pulse Ox 04/09/19 08:00 04/09/19 07:59 92 04/09/19 07:18 95 04/09/19 03:49 92 04/09/19 00:24 04/08/19 23:41 93 Laboratory Results Laboratory Results - last 24 hr 04/08/19 04/08/19 04/08/19 11:19 13:12 14:29 Sodium 134 L Potassium 4.8 Chloride 97 L Carbon Dioxide 34 H Anion Gap 3.0 BUN 30 H Creatinine 1.49 H D Est Cr Clr Drug Dosing 55.8 Est GFR ( Amer) 52.5 Est GFR (Non-Af Amer) 45.3 BUN/Creatinine Ratio 20.1 H Glucose 227 H POC Glucose 225 H Calcium 8.7 Troponin I 0.074 H* Specimen Hemolysis 04/08/19 04/08/19 04/08/19 16:13 20:15 20:51 Sodium Potassium Chloride Carbon Dioxide Anion Gap BUN Creatinine Est Cr Clr Drug Dosing Est GFR ( Amer) Est GFR (Non-Af Amer) BUN/Creatinine Ratio Glucose POC Glucose 210 H 253 H Calcium Troponin I 0.066 H* Specimen Hemolysis 04/09/19 04/09/19 07:14 08:33 Sodium 134 L Potassium 4.5 Chloride 96 L Carbon Dioxide 32 Anion Gap 5.0 BUN 33 H Creatinine 1.18 D Est Cr Clr Drug Dosing 71.0 Est GFR ( Amer) 69.5 Est GFR (Non-Af Amer) 60.0 BUN/Creatinine Ratio 28.3 H Glucose 244 H POC Glucose 210 H Calcium 8.9 Troponin I Specimen Hemolysis Medications Administered Current Inpatient Medications Acetaminophen (Tylenol) 650 mg PO Q4H PRN PRN Reason: Pain or Fever Stop: 05/08/19 00:08 Al Hydrox/Mg Hydrox/Simethicone (Maalox) 15 ml PO Q4H PRN PRN Reason: Dyspepsia Stop: 05/08/19 00:08 Albuterol (Duoneb) 3 ml NEB QIDR [facility] Stop: 05/08/19 06:59 Last Admin: 04/09/19 07:16 Dose: 3 ml Documented by: Amlodipine Besylate (Norvasc) 10 mg PO QAM [facility] Stop: 05/08/19 08:59 Last Admin: 04/09/19 08:27 Dose: 10 mg Documented by: Atorvastatin Calcium (Lipitor) 10 mg PO DAILY [facility] Stop: 05/08/19 08:59 Last Admin: 04/09/19 08:26 Dose: 10 mg Documented by: Clobetasol Propionate (Clobetasol Propionate Oint) 1 appln EXT BID PRN PRN Reason: BREAKOUTS Dextrose (Dextrose 50%) 25 - 50 ml IV UD PRN; Protocol PRN Reason: Hypoglycemia Protocol Stop: 05/08/19 00:08 Gabapentin (Neurontin) 100 mg PO DAILY [facility] Stop: 05/08/19 08:59 Last Admin: 04/09/19 08:27 Dose: 100 mg Documented by: Glucagon (Glucagen) 1 mg SQ UD PRN; Protocol PRN Reason: Hypoglycemia Protocol Stop: 05/08/19 00:08 Glucose (Glucose 40%) 15 - 30 gm PO UD PRN; Protocol PRN Reason: Hypoglycemia Protocol Stop: 05/08/19 00:08 Glucose (Dex4 Glucose) 4 - 8 tabs PO UD PRN; Protocol PRN Reason: Hypoglycemia Protocol Stop: 05/08/19 00:08 Heparin Sodium (Porcine) (Heparin Sodium (Porcine)) 5,000 units SQ Q8 [place] Stop: 05/08/19 05:59 Last Admin: 04/09/19 05:58 Dose: 5,000 units Documented by: Methylprednisolone 20 mg/ (Syringe) 0.32 mls @ 1.5 mls/min IV Q8H [place] Stop: 05/08/19 07:59 Last Admin: 04/09/19 08:27 Dose: 1.5 mls/min Documented by: Furosemide 40 mg/ Syringe 4 mls @ 4 mls/min IV QAM [place] Stop: 05/09/19 08:59 Last Admin: 04/09/19 08:27 Dose: 4 mls/min Documented by: Insulin Aspart (Novolog Flexpen) 0 units SC ACHS [facility] Stop: 05/08/19 07:29 Last Admin: 04/09/19 08:33 Dose: 10 units Documented by: Lisinopril (Zestril) 40 mg PO DAILY [facility] Stop: 05/08/19 08:59 Last Admin: 04/09/19 08:26 Dose: 40 mg Documented by: Magnesium Hydroxide (Milk Of Magnesia) 30 ml PO Q12H PRN PRN Reason: Constipation Stop: 05/08/19 00:08 Metoprolol Tartrate (Lopressor) 100 mg PO BID [place] Stop: 05/08/19 00:08 Last Admin: 04/09/19 08:27 Dose: 100 mg Documented by: Miscellaneous (Carbohydrates For Hypoglycemia) 15 - 30 gm PO UD PRN PRN Reason: Hypoglycemia Protocol Stop: 05/08/19 00:08 Ondansetron HCl (Zofran) 4 mg IV Q6H PRN PRN Reason: Nausea Stop: 05/08/19 00:08 Pantoprazole Sodium (Protonix) 40 mg PO DAILY [facility] Stop: 05/08/19 08:59 Last Admin: 04/09/19 08:26 Dose: 40 mg Documented by: Polyethylene Glycol (Miralax Powder Packet) 17 gm PO DAILY PRN PRN Reason: Constipation Stop: 05/08/19 00:08 Potassium Chloride (Klor-Con M10) 10 meq PO DAILY [facility] Stop: 05/08/19 08:59 Last Admin: 04/09/19 08:27 Dose: 10 meq Documented by: Vitamin D (Vitamin D3) 1,000 units PO DAILY [facility] Stop: 05/08/19 08:59 Last Admin: 04/09/19 08:26 Dose: 1,000 units Documented by: PG Care Time/CCT Total # of Minutes Spent Total Time Spent with Patient: Total time spent is greater than 50% in coordination of care (as documented) at patient's floor/unit and/or counseling patient:
--- NOTE | 2019-04-09 09:56 | Cardiology Progress Note ---
Date of Service April 09, 2019 Assessment & Plan (1) Acute on chronic systolic heart failure: (2) Obesity hypoventilation syndrome: (3) COPD (chronic obstructive pulmonary disease): (4) Hypoxemia: (5) Elevated troponin: Patient with only mild improvement in symptoms and no significant diuresis since admission. He continues to appear hypervolemic. Troponin trending down and no chest pain, likely demand ischemia in the setting of significant hypoxia. Echo with mildly reduced LV systolic function similar to prior echo and RV volume overload. -- Recommend increasing IV Lasix to 40 mg bid. Renal function and electrolytes are stable. --Strict I&Os, daily weights, low sodium diet. --Recommend transitioning metoprolol tartrate to succinate prior to discharge given reduced LV function. --Continue lisinopril. --Will have Susanne Avilez coordinate heart failure followup. Supervising Physician Co-Signing Physician Notes Patient seen and examined, reviewed with Destini. He is feeling better today, despite the fact that he does not seem to have lost a lot of fluid in his weights or not interpretable. He still has peripheral edema. We will need to continue diuresis. Subjective Patient reports feeling better overall. He denies shortness of breath at rest on supplemental O2. He does experience shortness of breath when walking to the restroom. No orthopnea or PND. No chest pain. Only modest diuresis on Lasix 40 mg daily. Additional dose was not given yesterday afternoon due to elevated creatinine. Review of Systems Review of Systems: All systems reviewed & are unremarkable except as noted in HPI & below Physical Exam Physical Exam: General: No acute distress, comfortable. Obese. On supplemental O2. Weight up from admission. HEENT: Head is normal. PERRLA. EOMI. Sclerae anicteric. Ears, nose and throat unremarkable. Mucous membranes moist. Neck: Normal carotid upstrokes, no bruits. JVD is difficult to assess given thick neck. Lungs: Faint bibasilar crackles. Cardiac: Regular rate and rhythm. S1-S2 normal. No appreciable murmur, gallop or rub. Abdomen: Soft and nontender. Bowel sounds normal. No mass or organomegaly. No abdominal bruit. Extremities/vascular: -- Well perfused. 1-2+ edema to the knees bilaterally --Radial, DP and PT pulses 2+ bilaterally --Hyperpigmentation, varicosities bilaterally --No ulcerations Results & Data Vital Signs (Past 12 Hours) Vital Signs Temp Pulse Pulse Pulse Resp BP BP 04/09/19 08:00 72 04/09/19 07:59 36.9 C 64 22 141/56 H 04/09/19 07:18 62 18 04/09/19 03:49 36.3 C L 71 20 167/75 H 04/09/19 00:24 72 04/08/19 23:41 36.7 C 63 20 152/73 H Pulse Ox 04/09/19 08:00 04/09/19 07:59 92 04/09/19 07:18 95 04/09/19 03:49 92 04/09/19 00:24 04/08/19 23:41 93 Laboratory Results Laboratory Results - last 24 hr 04/08/19 04/08/19 04/08/19 11:19 13:12 14:29 Sodium 134 L Potassium 4.8 Chloride 97 L Carbon Dioxide 34 H Anion Gap 3.0 BUN 30 H Creatinine 1.49 H D Est Cr Clr Drug Dosing 55.8 Est GFR ( Amer) 52.5 Est GFR (Non-Af Amer) 45.3 BUN/Creatinine Ratio 20.1 H Glucose 227 H POC Glucose 225 H Calcium 8.7 Troponin I 0.074 H* Specimen Hemolysis 04/08/19 04/08/19 04/08/19 16:13 20:15 20:51 Sodium Potassium Chloride Carbon Dioxide Anion Gap BUN Creatinine Est Cr Clr Drug Dosing Est GFR ( Amer) Est GFR (Non-Af Amer) BUN/Creatinine Ratio Glucose POC Glucose 210 H 253 H Calcium Troponin I 0.066 H* Specimen Hemolysis 04/09/19 04/09/19 07:14 08:33 Sodium 134 L Potassium 4.5 Chloride 96 L Carbon Dioxide 32 Anion Gap 5.0 BUN 33 H Creatinine 1.18 D Est Cr Clr Drug Dosing 71.0 Est GFR ( Amer) 69.5 Est GFR (Non-Af Amer) 60.0 BUN/Creatinine Ratio 28.3 H Glucose 244 H POC Glucose 210 H Calcium 8.9 Troponin I Specimen Hemolysis Diagnostic Findings Echo 04/08/19: normal LV size, mild concentric LVH. LVEF 45-50%. Abnormal septal motion consistent with RV volume overload. Cannot definitively rule out wall motion abnormalities. RV not well visualized. Appears dilated with normal function. Aortic valve sclerosis, no significant stenosis. Compared to study 03/31/18 no significant change. ECG Additional Comments: Tele reviewed-- sinus rhythm PG Care Time/CCT Total # of Minutes Spent Total Time Spent with Patient: Total time spent is greater than 50% in coordination of care (as documented) at patient's floor/unit and/or counseling patient:
[2019-04-10] MEDS: HEPARIN SOD 5,000 UNIT/0.5 ML VIAL SQ SCH (05:23)
[2019-04-10] MEDS: ALBUT/IPRATROP 3MG/0.5MG NEB 3 ML VIAL NEB SCH ×2 (06:49→11:00)
[2019-04-10] MEDS: FUROSEMIDE 40 MG in SYRINGE 0 ML IV SCH (08:13)
[2019-04-10] MEDS: PANTOprazole 40 MG TAB PO SCH (08:13)
[2019-04-10] MEDS: POTASSIUM CHLORIDE 10 MEQ TABCR PO SCH (08:14)
[2019-04-10] MEDS: ATORVASTATIN 10 MG TAB PO SCH (08:14)
[2019-04-10] MEDS: METOPROLOL TARTRATE 100 MG TAB PO SCH (08:14)
[2019-04-10] MEDS: CHOLECALCIFEROL 1,000 UNITS TAB PO SCH (08:14)
[2019-04-10] MEDS: LISINOPRIL 40 MG TAB PO SCH (08:14)
[2019-04-10] MEDS: AMLODIPINE BESYLATE 5 MG TAB PO SCH (08:14)
[2019-04-10] MEDS: GABAPENTIN 100 MG CAP PO SCH (08:15)
[2019-04-10] MEDS: INSULIN ASPART 100 UNITS/ML 3 ML PEN SC SCH (08:15)
[2019-04-10] MEDS ORDERED: predniSONE 10 MG TABLET PO SCH (09:00)
[2019-04-10 09:27] LABS: BUN Creatinine Ratio 26.8 (10-20); Calcium 8.8 mg/dl (8.5-10.1); Creatinine Clr Calc Pharmacy 76.9 ml/min; Est GFR (African American) 77.4; Est GFR (Non-African American) 66.8
--- NOTE | 2019-04-10 14:52 | Discharge Summary ---
Date of Service April 10, 2019 Admission HPI Per Admitting Provider The patient is a 73-year-old male with a past medical history including hyperlipidemia, rheumatoid arthritis, MGUS, sleep apnea, GERD, CHF, pneumonia, diabetes mellitus, and hypertension, who presents to the emergency department with worsening pain lower extremity edema, shortness of breath, dyspnea on exertion and generalized malaise. Upon presentation to the emergency department, he was found to be acutely hypoxic, with readings to 45%, and was placed on mask at 6 to 8 L, which brought his oxygenation up to 95 to 97%. He denies any recent change in diet, including no additional sodium intake. He did have the same symptoms this time last year, as his notes. Principal Diagnosis Acute on chronic systolic heart failure Discharge Exam Constitutional WD/WN, vitals as above + overweight Eyes PERRL, conjunctivae normal, anicteric sclerae ENMT external ear and nose normal, oropharynx normal Neck trachea midline, no thyromegaly Respiratory normal respiratory effort, lungs clear to auscultation Cardiovascular Rate/Rhythm: regular rate and regular rhythm Heart Sounds: normal S1 and normal S2; no murmur Vessels: no JVD Extremities: normal capillary refill; no edema Gastrointestinal (Abdomen) normal bowel sounds, soft, nontender, no hepatosplenomegaly Musculoskeletal no cyanosis or clubbing, extremities motor strength 5/5 Skin no rashes, warm and dry Neurologic patellar DTR's 2+ bilat, sensation intact and PERRL, EOMI, accommodation nl, no face palsy, no dysarthria Psychiatric A+Ox3, euthymic affect Lymphatic no cervical or axillary lymphadenopathy Discharge Data Allergies Allergy/AdvReac Type Severity Reaction Status Date / Time codeine Allergy Intermediate HIVES--PT Verified 04/07/19 22:33 DOES NOT USE PERCOCET Consultations 04/07/19 21:01 ED Decision to Admit Stat 04/08/19 00:09 Consult Cardiology Routine Consult Case Management - Discharge Planning Routine Hospital Course (1) Acute on chronic systolic heart failure: echo shows EF is 45%, so EF is slightly reduced fluid restriction added at 1500cc/day, daily weights, strict I/O Lasix 40mg IV BID continue on Lisinopril and Metoprolol responding a lot better to Lasix the past 24 hours, negative 2000mL breathing better, weight trending down long discussion about management of heart failure, referral to CHF clinic placed detailed instructions provided will place patient on Lasix 40mg PO BID for the next 2 days as he still has a little fluid to give go to Lasix 40mg daily on 04/13 he will weigh himself daily, follow fluid restriction of 1800mL a day, salt restriction of 2gm a day knows to call cardiology if weight trends upward (2) Hypoxia: Patient presented to the emergency department acutely hypoxic, improved with placement on mask. most likely due to acute on chronic systolic heart failure breathing is better overall, ambulated to bathroom without oxygen can d/c to home (3) Bilateral lower extremity edema: improved a lot after Lasix IV continue Lasix IV BID (4) Elevated troponin: Troponin elevated at 0.134 upon admission, trended down to 0.7 no chest pain no wall motion abnormalities on echo no further work up at this time (5) COPD (chronic obstructive pulmonary disease): Place on Duonebs every 4 hours while awake and every 2 hours as needed. Solu-Medrol 20 mg IV every 8 hours, to address inflammation and prevent adrenal insufficiency. stopped Solu Medrol, no signs of exacerbation continue home regimen of inhaled therapy (6) Obesity hypoventilation syndrome: Obesity hypoventilation syndrome- Contributing to daily respiratory difficulties and sleep apnea at night. Discussion regarding weight management (7) Sleep apnea: He has not been able to tolerate CPAP at night time, and no longer sees Dr. Johnson. (8) GERD (gastroesophageal reflux disease): Continue pantoprazole 40 mg daily metoprolol (9) Diabetes: Hold glimepiride and metformin. Placed on Accu-Cheks before meals and at bedtime with NovoLog coverage per scale monitor for hypoglycemia resume oral regimen on discharge (10) Hypertension: Continue metoprolol tartrate 100 mg p.o. twice daily, amlodipine 10 mg every morning, and lisinopril 40 mg daily. BP stable (11) Rheumatoid arthritis: On monthly autoinjector in the outpatient setting. resume Prednisone 10mg daily (12) Hyperlipidemia: Continue atorvastatin 10 mg daily (13) MGUS (monoclonal gammopathy of unknown significance): Noted (14) Hyperkalemia: resolved with Lasix Total Time Total Time Spent Total Time Spent (In Minutes): 38 minutes Total Time Includes: Examination of the Patient, Discharge Planning, Medication Reconciliation and Other (educating patient at the bedside on heart failure management) Discharge Plan Discharge Items Patient Disposition: Home - Self-Care Reason For Visit: ELEVATED TROPONIN, ACUTE RESP FAILURE W/ HYPOXIA Discharge Diagnosis: Acute on chronic systolic heart failure Acute hypoxia Condition on Discharge: Good Goals: better control of heart failure by following fluid restriction and complying with daily weights close follow up with the heart failure clinic Activity: Resume your previous activity Non-emergency contact: Primary Care Provider and Journeyman Operator Assistant Call non-emergency contact if: you have any medication questions and your symptoms worsen Follow-up/Referrals: Nimo Stewart MD [Primary Care Provider] - 04/14/19 10:00 am (Please, follow up at [facility] with Dr. Stewart on SaturdayApril 14 at 10:00 am. *If you need to change this appointment, call the office at [phone].) Chelo Avilez PA-C [Physician [employer]] - 04/17/19 10:30 am (Please, follow up at [facility] Office / CHF Clinic with Chelo Avilez PA-C on SaturdayApril 17 at 10:30 am. *The office is located in [address] of [facility], next to [facility]. If you need to change this appointment, call the office at [phone].) Diet: Heart Healthy Fluids: 1800ml (7 cups) Addtl Attending Provider Instructions: Medications: - FUROSEMIDE: for the next two days I want you to take twice a day, once in morning and then around 3pm you can resume once a day dosing on Friday 04/13 Acute on chronic systolic heart failure, volume overload you responded well to Lasix 40mg IV twice a day, weight is down and negative fluid balance Furosemide (LASIX): for the next two days I want you to take twice a day, you should take a dose today at 3pm take twice a day Saturday and Saturday, resume once a day dosing on Friday 04/13 acute heart failure due to drinking too much fluid and not monitoring your weight on a daily basis you need to be on a fluid restriction of 1800mL a day (seven 8oz fluid cups) you need to keep your sodium intake to less than 2gm a day (read labels to see how much sodium is in the food you eat) DAILY WEIGHT: every morning step on the scale after you urinate, before you eat breakfast, record your weight I expect your weight to continue to go down a little the next two days on the furosemide twice a day after that time I would expect it to remain stable if your weight goes up by 2-3 lbs from your baseline weight, then you need to call cardiology, numbers below they will give you instructions, likely would tell you to take extra furosemide that day and follow your weight Heart failure can be managed by taking your medications as prescribed, daily weight, following fluid and salt restriction FOLLOW UP - Dr. Stewart on 04/13 - Chelo RINALDI, heart failure clinic in 1-2 weeks, her number is [phone] you can call the above number if your weight goes up for further instructions Pending Studies at Discharge: No Stand-Alone Forms: [facility] [employer], Smoking Cessation Medications and DC Order Prescriptions: New furosemide 40 mg tablet 40 mg PO BID Qty: 10 RF: 0 Continued lisinopril 40 mg tablet 40 mg PO DAILY Qty: 90 RF: 3 glimepiride 2 mg tablet 2 mg PO BID Qty: 180 RF: 1 metoprolol tartrate 100 mg tablet 100 mg PO BID Qty: 180 RF: 1 potassium chloride 10 mEq capsule, extended release 10 meq PO DAILY Qty: 30 RF: 5 Taltz Autoinjector 80 mg/mL auto-injector 80 mg SQ MONTHLY RF: 0 metformin 500 mg tablet 500 mg PO BID RF: 0 amlodipine 10 mg tablet 10 mg PO QAM RF: 0 pantoprazole 40 mg tablet,delayed release (DR/EC) 40 mg PO DAILY RF: 0 cholecalciferol (vitamin D3) [Vitamin D3] 1,000 unit Capsule 1,000 unit PO DAILY RF: 0 atorvastatin 10 mg tablet 10 mg PO DAILY RF: 0 clotrimazole 1 % Cream 1 applic TOPICAL BID PRN (Reason: FLARE UPS) RF: 0 clobetasol 0.05 % Cream 1 applic TOPICAL BID PRN (Reason: BREAKOUTS) RF: 0 furosemide 40 mg tablet 40 mg PO DAILY Qty: 30 RF: 0 gabapentin 100 mg capsule 100 mg PO DAILY RF: 0 prednisone 10 mg tablet 10 mg PO DAILY RF: 0 Discharge Orders: Discharge Order (Routine); Ordered 04/10/19 Ordered By: Himanshu Keating Admission Data Admit Date/Time: 04/07/19 22:59 Attending Provider: Himanshu Keating Admit Provider: Chilango Romero Primary Care Provider: Nimo Stewart Other Providers: Chilango Romero ; Perico Gonzalez Other Interventions: Discharge Summary Assessment (RN) Last Done: 04/10/19 11:42 DC Date/Time DO NOT enter until pt leaves facility: 04/10/19 12:20
--- NOTE | 2019-04-10 22:44 | Cardiology Progress Note ---
Date of Service April 10, 2019 Assessment & Plan (1) CHF (congestive heart failure): He still has a mild degree of congestive heart failure however he feels much better, his breathing is good lying flat and he only has a little bit of edema. He has a good understanding of how to control his heart failure and he is going to go back to taking his weight daily and watching his fluid intake. I think it is safe to discharge him. We will follow him closely in heart failure clinic. Subjective He is feeling much better today, he is lying flat supine in his bed and is not having shortness of breath. He notes that his legs are less swollen. He is anxious to go home. Physical Exam Physical Exam: Constitutional: Alert, cooperative and in no distress. Pulmonary: Clear to auscultation bilaterally. Cardiac: Regular rhythm with no murmur, gallop or rub. Abdomen: Soft, nontender with normal bowel sounds. Extremities: +1 pretibial edema. Skin: No rash, ecchymoses or petechiae. Results & Data Vital Signs (Past 12 Hours) Vital Signs Temp Pulse Pulse Resp BP Pulse Ox 04/10/19 11:42 36.4 C L 54 L 66 18 162/75 H 95 04/10/19 11:00 54 L 18 95 Laboratory Results Abnormal lab results 04/10/19 04/10/19 Range/Units 08:23 11:48 Chloride 97 L (98-107) mmol/L Carbon Dioxide 37 H (21-32) mmol/L BUN 29 H (7-18) mg/dl BUN/Creatinine Ratio 26.8 H (10-20) Glucose 159 H (70-99) mg/dl POC Glucose 140 H (70-99) Diagnostic Findings Telemetry: Sinus rhythm, no significant arrhythmia PG Care Time/CCT Total # of Minutes Spent Total Time Spent with Patient: Total time spent is greater than 50% in coordination of care (as documented) at patient's floor/unit and/or counseling patient: (1) CHF (congestive heart failure) Heart failure chronicity: unspecified Heart failure type: unspecified Qualified Code(s): I50.9 - Heart failure, unspecified
== END 2019-04-10 12:20 | disposition home or self-care (01) | DRG 292 ==
LOC: ED 19:28 → SUATTDRO 22:59 → 2S 22:59

== ENCOUNTER 2021-08-28 17:25 | Inpatient (IN) ==
--- NOTE | 2021-08-28 18:05 | Emergency Department Note ---
Impression & Plan Acute hypoxemic respiratory failure, CHF (congestive heart failure), Hypertension, Rheumatoid arthritis ED Provider Note NAME: HINA ALEX AGE: 76 SEX: M : 1945 ARRIVES VIA: Walk-In INFORMANT: Patient, ED PROVIDER(S): Gurjit Ennis MD Chief Complaint: Shortness of breath HPI: Patient presents due to concern for shortness of breath which have been ongoing approximately 5 days and has gotten worse over these last 5 days. Patient denies any cough or fever. Patient states he is compliant with his medications and to take his morning meds. The patient does have a known history of CHF and follows with cardiology Dr. Irizarry. No recent changes or missed doses of his medications including his diuretics. Patient has noticed some increasing bilateral lower extremity edema exertional dyspnea. The patient is unsure as whether not he has had any change with sitting up right versus laying flat but primarily will lie flat. Patient does not take any blood thinning medications. The patient denies any calf pain recent surgeries or procedures. No known sick contacts. I did receive a call to see the patient as the patient was satting at 64% in triage. ROS: See HPI for pertinent positives and negatives. A total of 10 systems were reviewed and otherwise negative. Past medical history: See below Surgical history: See below Social history: See below Physical Exam: GENERAL: Nontoxic, nasal cannula in place. EYE EXAM: Normal conjunctiva. PERRL, no anisocoria and EOM's grossly intact w/o pain. OROPHARYNX: Moist mucus membranes. Grossly normal dentition. NECK: Supple, no nuchal rigidity, no adenopathy, non-tender. No signs of meningismus. FROM of the neck with good chin to chest and neck extension. No stridor. LUNGS: Decreased breath sounds throughout with bibasilar crackles. No obvious rhonchi or wheezing HEART: NSR, no MRG. ABDOMEN: Abdomen soft, non-tender, normo-active bowel sounds, no masses, no rebound or guarding. BACK: No CVA TTP. SKIN: No rashes and no bruising. UPPER EXTREMITIES: Upper extremities are grossly normal. LOWER EXTREMITIES: Grossly normal, 2+ bilateral symmetric lower extremity edema. NEURO EXAM: A&O x3, cranial nerves II-XII grossly intact, normal speech, moves all 4 extremities on command w/o issue. Differential diagnoses: Reactive airway disease, pneumonia, pneumothorax, COPD, CHF, infections, cardiac ischemia, pulmonary embolism, musculoskeletal, gastrointestinal, as well as other pathologies. Course: Patient was seen and evaluated the bedside. Full history physical exam was performed. EKG interpreted by Sinus with first-degree AV block, rate of 61, normal QRS, normal axis, Q waves anteriorly. No significant change from comparison EKG April 21, 2019. Imaging Studies: See Below Cardiac monitoring: An order was placed for continuous cardiac monitoring. The monitor shows a rate of 67 with sinus rhythm. MDM: Patient presented due to concern for shortness of breath. Blood work was obtained and the patient was placed on nasal cannula supplemental oxygen. Patient was significantly hypoxemic in triage at 64%. Patient blood work showed a white count of 12 with a hemoglobin of 12.3. The patient's platelet count is unremarkable. Kidney function is unremarkable with elevation in bicarb. Patient does have mild elevation in AST and ALT. Troponin is detectable but not elevated. The patient does have an elevated BNP. Lasix 40 mg ordered as the patient does have lower extremity edema. Patient's chest x-ray appears to be clear with no obvious infiltrate. did speak with the on-call hospitalist Dr. Hedrick and the patient was admitted to the medicine service. Critical Care: I have personally spent 42 minutes of critical care time in direct management of this patient. This includes bedside care, interpretation of diagnostic studies, and testing, discussion with consultants, patient, and family members, and other require inpatient management activities. This 42 minutes is in excess of all separately billable procedures. Past Med/Surg History Medical History (Updated 08/28/21 @ 22:50 by Gurjit Ennis MD) CHF (congestive heart failure) Diabetes GERD (gastroesophageal reflux disease) Hyperlipidemia Hypertension Rheumatoid arthritis Sleep apnea Stage 2 chronic kidney disease Surgical History History of arthroplasty of right shoulder History of bilateral knee replacement Hx of appendectomy Hx of cholecystectomy Hx of hernia repair Family History Father Myocardial infarction Heart disease Mother Cancer Non-Hodgkins lymphoma Sister Ovarian cancer Brother Lung cancer Grandfather Diabetes Other Family history non-contributory Denies family history of Prostate cancer Breast cancer Colorectal cancer Social History Smoking Status: Never smoker Second Hand Exposure: No; Hx Alcohol Use: No Hx Substance Use: No Preferred Language: Citizen Of [place] Communication Ability: Effective Pinion Staker Required: No Beliefs That Will Affect Care: None marital status: Current Living Situation: Spouse current occupational status: retired How many Children do You have: 3 Feels Safe at Home: Yes caffeine: Yes during the past year weight has: remained stable Dental Care, Regularly: Yes Physical Activity Frequency: Daily Seatbelt Use: always Sunscreen Use: No Assistive Devices: Glasses Allergies Allergies Allergy/AdvReac Type Severity Reaction Status Date / Time codeine Allergy Intermediate HIVES--PT Verified 08/28/21 18:26 DOES NOT USE PERCOCET Home Meds Home Medications Medication Instructions Recorded Confirmed clobetasol 0.05 % topical cream 1 applic TOPICAL BID PRN 03/30/18 08/28/21 clotrimazole 1 % topical cream 1 applic TOPICAL BID PRN 03/30/18 08/28/21 blood sugar diagnostic #10 ea 04/23/19 08/08/21 cholecalciferol (vitamin D3) 25 5,000 unit PO DAILY cap 11/04/20 08/28/21 mcg (1,000 unit) capsule (Vitamin D3) prednisone 5 mg tablet 5 mg PO DAILY tab 12/28/20 08/28/21 amlodipine 10 mg tablet 10 mg PO DAILY 08/28/21 08/28/21 docusate sodium 100 mg capsule 100 mg PO DAILY 08/28/21 08/28/21 Previous Rx's Medication Instructions Recorded omeprazole 20 mg capsule,delayed 20 mg PO DAILY #30 cap 12/02/19 release magnesium oxide 400 mg PO TID #270 tab 03/03/20 tofacitinib 11 mg tablet,extended 11 mg PO DAILY #1 tab 08/01/20 release 24 hr (Xeljanz XR) linagliptin 5 mg tablet (Tradjenta) 5 mg PO DAILY #30 tab 10/06/20 furosemide 40 mg tablet See Rx Instructions PO DAILY #90 10/17/20 tab gabapentin 300 mg capsule 300 mg PO BID #180 cap 03/13/21 metoprolol succinate 200 mg 200 mg PO DAILY #90 tab 04/18/21 tablet,extended release 24 hr atorvastatin 10 mg tablet 10 mg PO DAILY #90 tab 11/16/21 lisinopril 40 mg tablet 40 mg PO DAILY #90 tab 06/15/21 potassium chloride 10 mEq 10 meq PO DAILY #90 cap 06/22/21 capsule,extended release glimepiride 2 mg tablet 2 mg PO BID #180 tab 06/29/21 metformin 500 mg tablet 500 mg PO BID #180 tab 08/16/21 Results & Data (ED) Vital Signs Vital Signs - 24 hr 08/28/21 17:36 08/28/21 18:01 08/28/21 18:06 Temperature 36.8 C Temperature Source Temporal Artery Scan Pulse Rate 66 Pulse Rate [Apical] Pulse Rate [Finger] Pulse Rhythm Regular Pulse Rhythm [Finger] Pulse Strength Normal Pulse Strength [Finger] Respiratory Rate 24 Respiratory Effort / Characteristics Spontaneous Labored Short of Breath SOB on Exertion Respiratory Depth Normal Shallow Respiratory Pattern Regular Regular Blood Pressure 150/61 H Blood Pressure [Right Arm] Blood Pressure Mean 90 Blood Pressure Mean [Right Arm] Blood Pressure Position Sitting Blood Pressure Position [Right Arm] Pulse Oximetry 64 L 92 Oxygen Delivery Method Room Air Nasal Cannula Nasal Cannula Oxygen Flow Rate 3 3 Sepsis Recent Fever Within 48 Hours No Sepsis New/Unexplained Change in Mental Status N/A Sepsis Action Taken by Nursing No Action Required 08/28/21 18:09 08/28/21 18:41 08/28/21 19:24 Temperature Temperature Source Pulse Rate Pulse Rate [Apical] 59 L Pulse Rate [Finger] 60 Pulse Rhythm Pulse Rhythm [Finger] Regular Pulse Strength Pulse Strength [Finger] Normal Respiratory Rate 23 19 Respiratory Effort / Characteristics Non-Labored Respiratory Depth Normal Respiratory Pattern Blood Pressure Blood Pressure [Right Arm] 150/63 H 140/87 Blood Pressure Mean Blood Pressure Mean [Right Arm] 92 104 Blood Pressure Position Blood Pressure Position [Right Arm] Sitting Pulse Oximetry 93 96 96 Oxygen Delivery Method Nasal Cannula Nasal Cannula Nasal Cannula Oxygen Flow Rate 3 3 3 Sepsis Recent Fever Within 48 Hours Sepsis New/Unexplained Change in Mental Status Sepsis Action Taken by Shelter Medications Current Medication List: was personally reviewed by me Laboratory Data Attestation: I reviewed the patient's lab results. Result diagrams: 08/28/21 18:10 08/28/21 18:10 Lab Results 08/28/21 08/28/21 08/28/21 Range/Units 18:10 18:10 18:10 WBC 12.61 H (4.8-10.8) K/uL RBC 4.47 L (4.7-6.1) M/uL Hgb 12.3 L (14.0-18.0) g/dL Hct 40.6 L (42-52) % MCV 90.8 (80-100) fL MCH 27.5 (25-34) pg MCHC 30.3 L (32-36) g/dL RDW Std Deviation 55.5 H (36.4-46.3) fL RDW Coeff of Tony 16.7 H (11.5-14.5) % Plt Count 307 (130-400) K/uL MPV 9.8 (7.4-10.4) fL Immature Gran % (Auto) 0.3 % Neut % (Auto) 73.7 % Lymph % (Auto) 18.2 % [place] % (Auto) 6.3 % Eos % (Auto) 1.3 % Baso % (Auto) 0.2 % Neut # (Auto) 9.31 H (1.4-6.5) K/uL Lymph # (Auto) 2.29 (1.2-3.4) K/uL [place] # (Auto) 0.79 H (0.11-0.59) K/uL Eos # (Auto) 0.16 (0-0.5) K/uL Baso # (Auto) 0.02 (0-0.2) K/uL Immature Gran # (Auto) 0.04 H (0.00-0.02) K/uL PT 10.6 (9.0-12.0) Seconds INR 1.0 (0.9-1.1) APTT 25.6 (21.0-31.0) Seconds PTT Ratio 0.9 Sodium 139 (136-145) mmol/L Potassium 4.3 (3.5-5.1) mmol/L Chloride 96 L (98-107) mmol/L Carbon Dioxide 35 H (21-32) mmol/L Anion Gap 8 (3-11) BUN 28 H (6-23) mg/dl Creatinine 1.33 (0.6-1.4) mg/dl Est Cr Clr Drug Dosing 59.1 ml/min Est GFR ( Amer) 58.9 ml/min Est GFR (Non-Af Amer) 50.8 ml/min BUN/Creatinine Ratio 21.1 H (10-20) Glucose 102 H (70-99(Fasting)) mg/dl Calcium 9.3 (8.5-10.1) mg/dl Magnesium 1.8 (1.7-2.4) mg/dl Total Bilirubin 0.6 (0.2-1.0) mg/dl AST 41 H (13-39) U/L ALT 55 H (7-52) U/L Alkaline Phosphatase 48 (34-104) U/L Troponin I 0.03 (0-0.04) ng/ml B-Natriuretic Peptide (0-100) pg/ml Total Protein 7.9 (6.0-8.3) gm/dl Albumin 4.0 (3.4-5.0) gm/dl Globulin 3.9 (2.5-4.0) gm/dl Albumin/Globulin Ratio 1.0 (0.9-2) SARS-CoV-2, RNA, NAAT (NEGATIVE) 08/28/21 08/28/21 Range/Units 18:10 18:12 WBC (4.8-10.8) K/uL RBC (4.7-6.1) M/uL Hgb (14.0-18.0) g/dL Hct (42-52) % MCV (80-100) fL MCH (25-34) pg MCHC (32-36) g/dL RDW Std Deviation (36.4-46.3) fL RDW Coeff of Tony (11.5-14.5) % Plt Count (130-400) K/uL MPV (7.4-10.4) fL Immature Gran % (Auto) % Neut % (Auto) % Lymph % (Auto) % [place] % (Auto) % Eos % (Auto) % Baso % (Auto) % Neut # (Auto) (1.4-6.5) K/uL Lymph # (Auto) (1.2-3.4) K/uL [place] # (Auto) (0.11-0.59) K/uL Eos # (Auto) (0-0.5) K/uL Baso # (Auto) (0-0.2) K/uL Immature Gran # (Auto) (0.00-0.02) K/uL PT (9.0-12.0) Seconds INR (0.9-1.1) APTT (21.0-31.0) Seconds PTT Ratio Sodium (136-145) mmol/L Potassium (3.5-5.1) mmol/L Chloride (98-107) mmol/L Carbon Dioxide (21-32) mmol/L Anion Gap (3-11) BUN (6-23) mg/dl Creatinine (0.6-1.4) mg/dl Est Cr Clr Drug Dosing ml/min Est GFR ( Amer) ml/min Est GFR (Non-Af Amer) ml/min BUN/Creatinine Ratio (10-20) Glucose (70-99(Fasting)) mg/dl Calcium (8.5-10.1) mg/dl Magnesium (1.7-2.4) mg/dl Total Bilirubin (0.2-1.0) mg/dl AST (13-39) U/L ALT (7-52) U/L Alkaline Phosphatase (34-104) U/L Troponin I (0-0.04) ng/ml B-Natriuretic Peptide 160 H (0-100) pg/ml Total Protein (6.0-8.3) gm/dl Albumin (3.4-5.0) gm/dl Globulin (2.5-4.0) gm/dl Albumin/Globulin Ratio (0.9-2) SARS-CoV-2, RNA, NAAT NEGATIVE (NEGATIVE) Administered Medications Discontinued Medications Furosemide (Furosemide 40 Mg/4 Ml Vial) 40 mg IV ONE ONE Stop: 08/28/21 19:45 Last Admin: 08/28/21 19:59 Dose: 40 mg Documented by: [id number] Imaging Data Radiologist's Impression: Chest X-Ray 08/28/21 18:00 XR chest 1V portable CLINICAL HISTORY: Dyspnea TECHNIQUE: Single frontal radiograph of the chest was obtained. Comparison: Comparison is made to chest 2 views 08/22/2021 FINDINGS: No lines and tubes are seen. Cardiomegaly is noted. The lungs are clear. No evidence of pleural effusion or pneumothorax. IMPRESSION: No acute chest disease. ACT 112: Negative or not required by law. Electronically signed by: Himanshu Gracia M.D. 08/28/2021 6:45 PM Discharge Plan Visit Data Chief Complaint: Shortness of Breath/Dyspnea Stated Complaint: "FILLING WITH WATER", ABDOMEN, OXYGEN LEVEL 70-90 ED Provider: Gurjit Ennis Discharge Problem: Acute hypoxemic respiratory failure, CHF (congestive heart failure), Hypertension, Rheumatoid arthritis Patient Disposition: Admitted As Inpatient Discharge Instructions Interventions: ED Discharge Assessment Last Done: 08/28/21 21:45
[2021-08-28 18:21] LABS: Basophils # (auto) 0.02 K/uL (0-0.2); Basophils % (auto) 0.2 %; Eosinophils # (auto) 0.16 K/uL (0-0.5); Eosinophils % (auto) 1.3 %; Hematocrit (blood only) 40.6 % (42-52); Hemoglobin 12.3 g/dL (14.0-18.0); Immature Granulocytes # (auto) 0.04 K/uL (0.00-0.02); Immature Granulocytes % (auto) 0.3 %; Lymphocytes # (auto) 2.29 K/uL (1.2-3.4); Lymphocytes % (auto) 18.2 %; Mean Corpuscular Hemoglobin 27.5 pg (25-34); Mean Corpuscular Hgb Conc 30.3 g/dL (32-36); Mean Corpuscular Volume 90.8 fL (80-100); Mean Platelet Volume 9.8 fL (7.4-10.4); Monocytes # (auto) 0.79 K/uL (0.11-0.59); Monocytes % (auto) 6.3 %; Neutrophils # (auto) 9.31 K/uL (1.4-6.5); Neutrophils % (auto) 73.7 %; Platelet Count 307 K/uL (130-400); RDW Coefficient of Variation 16.7 % (11.5-14.5); RDW Standard Deviation 55.5 fL (36.4-46.3); Red Blood Count 4.47 M/uL (4.7-6.1); White Blood Count 12.61 K/uL (4.8-10.8)
[2021-08-28 18:44] LABS: Troponin I 0.03 ng/ml (0-0.04)
[2021-08-28 18:46] LABS: BUN Creatinine Ratio 21.1 (10-20); Bilirubin,Total 0.6 mg/dl (0.2-1.0); Calcium 9.3 mg/dl (8.5-10.1); Creatinine Clr Calc Pharmacy 59.1 ml/min; Est GFR (African American) 58.9 ml/min; Est GFR (Non-African American) 50.8 ml/min; Globulin 3.9 gm/dl (2.5-4.0); Magnesium 1.8 mg/dl (1.7-2.4); Potassium 4.3 mmol/L (3.5-5.1); Total Protein 7.9 gm/dl (6.0-8.3)
--- NOTE | 2021-08-28 18:46 | XRay Report ---
XR chest 1V portable CLINICAL HISTORY: Dyspnea TECHNIQUE: Single frontal radiograph of the chest was obtained. Comparison: Comparison is made to chest 2 views 08/22/2021 FINDINGS: No lines and tubes are seen. Cardiomegaly is noted. The lungs are clear. No evidence of pleural effus ion or pneumothorax. IMPRESSION: No acute chest disease. ACT 112: Negative or not required by law. Electronically signed by: Himanshu Gracia M.D. 08/28/2021 6:45 PM
[2021-08-28] MEDS ORDERED: FUROSEMIDE 40 MG/4 ML VIAL IV ONE (19:44)
[2021-08-28 19:56] LABS: Partial Thromboplastin Ratio 0.9; Partial Thromboplastin Time 25.6 Seconds (21.0-31.0); Prothrombin Time 10.6 Seconds (9.0-12.0)
--- NOTE | 2021-08-28 20:47 | History & Physical Report ---
Date of Service August 28, 2021 Assessment & Plan (1) Acute respiratory failure with hypoxia: Plan: 76yo male presenting with acute hypoxic respiratory failure. Saturations of 64% on arrival on room air which have improved to 96% on 3l nc. Patient is in no distress. Breathing comfortably and speaking in complete sentences. Symptoms progressive x 3 weeks with acute worsening over the last 5 days - orthopnea, edema, DENNISON and decreased exercise tolerance as well. Ddx to include CHF. Less likely PNA, PE. -Lasix 40mg IV given in ER. Monitor response -Continue Lasix 40mg IV BID -BMP q 12 hours -Monitor intake and output -Daily weights -Supplemental O2 as needed -Continue Metoprolol, Lisinopril -Check Procalcitonin (2) CHF (congestive heart failure): Plan: Expect acute exacerbation as above -Lasix 40mg IV BID -Monitor response (3) Diabetes: Plan: Blood sugar = 102 presently -Lantus 10u BID -Hold Glimepiride, Metoprolol -ISS -Goal blood sugar 100 - 140 -Continue Gabapentin (4) GERD (gastroesophageal reflux disease): Plan: Chronic -Pepcid daily (5) Hyperlipidemia: Plan: Chronic -Continue Atorvastatin (6) Hypertension: Plan: Chronic. Blood pressure 140/87 -Continue Amlodipine -Continue Metoprolol 200mg daily -Continue Lisinopril -Continue to monitor (7) Rheumatoid arthritis: Plan: Chronic -Continue Prednisone -Continue Xeljanz (8) Sleep apnea: Plan: Patient does not wear CPAP History of Present Illness Chief Complaint: DENNISON Primary Care Provider: Robbie Mohr DO Sarwat Campbell is a pleasant 76yo male with history of DM, CHF, HTN, HLP presenting with progressive dyspnea. Patient's symptoms began appx 3 weeks ago with some mild decrease in exercise tolerance and edema as well as exertional dyspnea. Symptoms have been progressive over the last 3 weeks with rapid worsening over the last 5 days. He has noted some worsening BL LE edema R >L as well as DENNISON and orthopnea. He has had early satiety as well and has been eating appx 1/3 of what he was previously eating. Patient denies chest pain, palpitations, fever, chills, cough, abdominal pain, nausea, vomiting, diarrhea or constipation. He has been taking his medication as prescribed. No recent changes. No increased salt intake. Upon arrival to the ER patient with acute hypoxic respiratory failure with saturation of 64% on room air Patient has O2 at home which he is to use PRN - 3L by portable concentrator. He reports using it very infrequently but was using 4L earlier today. Patient is vaccinated + booster against Covid-19 Covid test in the ER is NEGATIVE ER Course: Lasix 40mg IV Allergies Allergy/AdvReac Type Severity Reaction Status Date / Time codeine Allergy Intermediate HIVES--PT Verified 08/28/21 18:26 DOES NOT USE PERCOCET Home Medications Medication Instructions Recorded Confirmed Type clobetasol 0.05 % topical cream 1 applic TOPICAL BID PRN 03/30/18 08/28/21 History clotrimazole 1 % topical cream 1 applic TOPICAL BID PRN 03/30/18 08/28/21 History blood sugar diagnostic #10 ea 04/23/19 08/08/21 History omeprazole 20 mg capsule,delayed 20 mg PO DAILY #30 cap 12/02/19 08/28/21 Rx release magnesium oxide 400 mg PO TID #270 tab 03/03/20 08/28/21 Rx tofacitinib 11 mg tablet,extended 11 mg PO DAILY #1 tab 08/01/20 08/28/21 Rx release 24 hr (Xeljanz XR) linagliptin 5 mg tablet (Tradjenta) 5 mg PO DAILY #30 tab 10/06/20 08/28/21 Rx furosemide 40 mg tablet See Rx Instructions PO DAILY #90 10/17/20 08/28/21 Rx tab cholecalciferol (vitamin D3) 25 5,000 unit PO DAILY cap 11/04/20 08/28/21 History mcg (1,000 unit) capsule (Vitamin D3) prednisone 5 mg tablet 5 mg PO DAILY tab 12/28/20 08/28/21 History gabapentin 300 mg capsule 300 mg PO BID #180 cap 03/13/21 08/28/21 Rx metoprolol succinate 200 mg 200 mg PO DAILY #90 tab 04/18/21 08/28/21 Rx tablet,extended release 24 hr atorvastatin 10 mg tablet 10 mg PO DAILY #90 tab 04/25/21 08/28/21 Rx lisinopril 40 mg tablet 40 mg PO DAILY #90 tab 06/15/21 08/28/21 Rx potassium chloride 10 mEq 10 meq PO DAILY #90 cap 06/22/21 08/28/21 Rx capsule,extended release glimepiride 2 mg tablet 2 mg PO BID #180 tab 06/29/21 08/28/21 Rx metformin 500 mg tablet 500 mg PO BID #180 tab 08/16/21 08/28/21 Rx amlodipine 10 mg tablet 10 mg PO DAILY 08/28/21 08/28/21 History docusate sodium 100 mg capsule 100 mg PO DAILY 08/28/21 08/28/21 History Past Med/Surg History Medical History (Updated 08/28/21 @ 21:11 by Leah Hedrick DO) CHF (congestive heart failure) Diabetes GERD (gastroesophageal reflux disease) Hyperlipidemia Hypertension Rheumatoid arthritis Sleep apnea Stage 2 chronic kidney disease Surgical History History of arthroplasty of right shoulder History of bilateral knee replacement Hx of appendectomy Hx of cholecystectomy Hx of hernia repair Family History Father Myocardial infarction Heart disease Mother Cancer Non-Hodgkins lymphoma Sister Ovarian cancer Brother Lung cancer Grandfather Diabetes Other Family history non-contributory Denies family history of Prostate cancer Breast cancer Colorectal cancer Social History Smoking Status: Never smoker Second Hand Exposure: No; Hx Alcohol Use: Yes Alcohol type: beer Alcohol Intake Frequency: Monthly or Less Hx Substance Use: No Preferred Language: Tristanian Communication Ability: Effective 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 Beliefs That Will Affect Care: None marital status: Current Living Situation: Spouse current occupational status: retired How many Children do You have: 3 Feels Safe at Home: Yes caffeine: Yes during the past year weight has: remained stable Dental Care, Regularly: Yes Physical Activity Frequency: Daily Seatbelt Use: always Sunscreen Use: No Assistive Devices: Glasses Review of Systems Review of Systems: All systems reviewed & are unremarkable except as noted in HPI & below Physical Exam Physical Exam: General: patient resting comfortably, NAD, non-toxic in appearance, AA&O x 4 Skin: warm, dry, intact, no rashes or lesions HEENT: NC/AT, PERRL, EOMI, anicteric sclera, conjunctiva without injection, external ear normal to inspection and nontender, nares patent, moist mucus membranes, dentition intact, no oropharyngeal lesions, neck supple, trachea midline, no LAD, no thyromegaly, no JVD Heart: +S1/S2, regular, no m/r/g Lungs: equal air entry bilaterally, crackles in bilateral lung bases Abd: +BS, soft, NT/ND, no masses/organomegaly/ascites Ext: warm, 2+ pulses in UE/LE bilaterally, no clubbing/cyanosis, 2+ edema of bilateral LE Neuro: nonfocal, patient AA&O x 4, speech intact, no facial droop, moving all extremities on command with equal strength 5/5 Results & Data Results & Data ([facility]) Vital Signs (Past 12 Hours) Vital Signs Temp Pulse Pulse Pulse Resp BP BP 08/28/21 19:24 59 L 19 140/87 08/28/21 18:41 08/28/21 18:09 60 23 150/63 H 08/28/21 18:06 08/28/21 17:36 36.8 C 66 24 150/61 H Pulse Ox 08/28/21 19:24 96 08/28/21 18:41 96 08/28/21 18:09 93 08/28/21 18:06 92 08/28/21 17:36 64 L Laboratory Results Laboratory Results WBC 12.61 K/uL (4.8-10.8) H 08/28/21 18:10 RBC 4.47 M/uL (4.7-6.1) L 08/28/21 18:10 Hgb 12.3 g/dL (14.0-18.0) L 08/28/21 18:10 Hct 40.6 % (42-52) L 08/28/21 18:10 MCV 90.8 fL (80-100) 08/28/21 18:10 MCH 27.5 pg (25-34) 08/28/21 18:10 MCHC 30.3 g/dL (32-36) L 08/28/21 18:10 RDW Std Deviation 55.5 fL (36.4-46.3) H 08/28/21 18:10 RDW Coeff of Tony 16.7 % (11.5-14.5) H 08/28/21 18:10 Plt Count 307 K/uL (130-400) 08/28/21 18:10 MPV 9.8 fL (7.4-10.4) 08/28/21 18:10 Immature Gran % (Auto) 0.3 % 08/28/21 18:10 Neut % (Auto) 73.7 % 08/28/21 18:10 Lymph % (Auto) 18.2 % 08/28/21 18:10 [place] % (Auto) 6.3 % 08/28/21 18:10 Eos % (Auto) 1.3 % 08/28/21 18:10 Baso % (Auto) 0.2 % 08/28/21 18:10 Neut # (Auto) 9.31 K/uL (1.4-6.5) H 08/28/21 18:10 Lymph # (Auto) 2.29 K/uL (1.2-3.4) 08/28/21 18:10 [place] # (Auto) 0.79 K/uL (0.11-0.59) H 08/28/21 18:10 Eos # (Auto) 0.16 K/uL (0-0.5) 08/28/21 18:10 Baso # (Auto) 0.02 K/uL (0-0.2) 08/28/21 18:10 Immature Gran # (Auto) 0.04 K/uL (0.00-0.02) H 08/28/21 18:10 PT 10.6 Seconds (9.0-12.0) 08/28/21 18:10 INR 1.0 (0.9-1.1) 08/28/21 18:10 APTT 25.6 Seconds (21.0-31.0) 08/28/21 18:10 PTT Ratio 0.9 08/28/21 18:10 Sodium 139 mmol/L (136-145) 08/28/21 18:10 Potassium 4.3 mmol/L (3.5-5.1) 08/28/21 18:10 Chloride 96 mmol/L (98-107) L 08/28/21 18:10 Carbon Dioxide 35 mmol/L (21-32) H 08/28/21 18:10 Anion Gap 8 (3-11) 08/28/21 18:10 BUN 28 mg/dl (6-23) H 08/28/21 18:10 Creatinine 1.33 mg/dl (0.6-1.4) 08/28/21 18:10 Est Cr Clr Drug Dosing 59.1 ml/min 08/28/21 18:10 Est GFR ( Amer) 58.9 ml/min 08/28/21 18:10 Est GFR (Non-Af Amer) 50.8 ml/min 08/28/21 18:10 BUN/Creatinine Ratio 21.1 (10-20) H 08/28/21 18:10 Glucose 102 mg/dl (70-99(Fasting)) H 08/28/21 18:10 Calcium 9.3 mg/dl (8.5-10.1) 08/28/21 18:10 Magnesium 1.8 mg/dl (1.7-2.4) 08/28/21 18:10 Total Bilirubin 0.6 mg/dl (0.2-1.0) 08/28/21 18:10 AST 41 U/L (13-39) H 08/28/21 18:10 ALT 55 U/L (7-52) H 08/28/21 18:10 Alkaline Phosphatase 48 U/L (34-104) 08/28/21 18:10 Troponin I 0.03 ng/ml (0-0.04) 08/28/21 18:10 B-Natriuretic Peptide 160 pg/ml (0-100) H 08/28/21 18:10 Total Protein 7.9 gm/dl (6.0-8.3) 08/28/21 18:10 Albumin 4.0 gm/dl (3.4-5.0) 08/28/21 18:10 Globulin 3.9 gm/dl (2.5-4.0) 08/28/21 18:10 Albumin/Globulin Ratio 1.0 (0.9-2) 08/28/21 18:10 SARS-CoV-2, RNA, NAAT NEGATIVE (NEGATIVE) 08/28/21 18:12 Impressions Chest X-Ray 08/28/21 18:00 XR chest 1V portable CLINICAL HISTORY: Dyspnea TECHNIQUE: Single frontal radiograph of the chest was obtained. Comparison: Comparison is made to chest 2 views 08/22/2021 FINDINGS: No lines and tubes are seen. Cardiomegaly is noted. The lungs are clear. No evidence of pleural effusion or pneumothorax. IMPRESSION: No acute chest disease. ACT 112: Negative or not required by law. Electronically signed by: Himanshu Gracia M.D. 08/28/2021 6:45 PM ECG Additional Comments: EKG with SR at 61bpm, 1st degree AV block with ZS=086, SNQ=064, ZKy=549, no acute ischemic changes present Code Status & VTE Plan VTE Prophylaxis Plan VTE Prophylaxis will be ordered: Yes PG Care Time/CCT Total # of Minutes Spent Total Time Spent with Patient: Total time spent is greater than 50% in coordination of care (as documented) at patient's floor/unit and/or counseling patient: Coding Level of Care Code 94319 Initial Inpt Care Lvl 3 Diagnoses CHF (congestive heart failure) I50.42 Heart failure chronicity: chronic Heart failure type: combined systolic and diastolic Diabetes E11.9 GERD (gastroesophageal reflux disease) K21.9 Hyperlipidemia E78.5 Hypertension I10 Hypertension type: essential hypertension Rheumatoid arthritis M06.9 Sleep apnea G47.30 Acute respiratory failure with hypoxia J96.01 (1) CHF (congestive heart failure) Heart failure chronicity: chronic Heart failure type: combined systolic and diastolic Qualified Code(s): I50.42 - Chronic combined systolic (congestive) and diastolic (congestive) heart failure (2) Hypertension Hypertension type: essential hypertension Qualified Code(s): I10 - Essential (primary) hypertension
[2021-08-28] MEDS ORDERED: ONDANSETRON INJ 2 MG/ML 2 ML VIAL IV PRN (22:54)
[2021-08-28] MEDS ORDERED: GLUCOSE 40% GEL 15 GM TUBE PO PRN (22:54)
[2021-08-28] MEDS ORDERED: DEXTROSE 50% 50 ML SYRINGE IV PRN (22:54)
[2021-08-28] MEDS ORDERED: GLUCAGON FOR INJ 1 MG VIAL SQ PRN (22:54)
[2021-08-28] MEDS ORDERED: GLUCOSE 10 TABS/TUBE PO PRN (22:54)
[2021-08-28] MEDS ORDERED: ACETAMINOPHEN 325 MG TAB PO PRN (22:54)
[2021-08-28] MEDS ORDERED: FAMOTIDINE 20 MG TAB PO ONE (22:54)
[2021-08-28] MEDS ORDERED: CARBOHYDRATES FOR HYPOGLYCEMIA PO PRN (22:54)
[2021-08-28] MEDS: GABAPENTIN 300 MG CAP PO SCH (23:48)
[2021-08-28] MEDS: ENOXAPARIN INJ 40 MG/0.4 ML SYR SQ SCH ×2 (23:48→23:50)
[2021-08-28] MEDS: INSULIN ASPART PER UNIT SC SCH (23:57)
[2021-08-28] MEDS: INSULIN GLARGINE SOLOSTAR 100 UNITS/ML 3 ML PEN SC SCH (23:58)
[2021-08-29 00:13] LABS: Calcium 9.2 mg/dl (8.5-10.1); Creatinine Clr Calc Pharmacy 62.2 ml/min; Est GFR (African American) 62.9 ml/min; Est GFR (Non-African American) 54.3 ml/min; Potassium 4.3 mmol/L (3.5-5.1)
--- NOTE | 2021-08-29 07:43 | Hospitalist Progress Note ---
Date of Service August 29, 2021 Assessment & Plan (1) Acute respiratory failure with hypoxia: Plan: 76yo male presenting with acute hypoxic respiratory failure. Saturations of 64% on arrival on room air which have improved to 96% on 3l nc. Symptoms progressive x 3 weeks with acute worsening over the last 5 days - orthopnea, edema, DENNISON and decreased exercise tolerance as well. Ddx to include CHF, presumed diatolic CHF given hx. Less likely PNA, PE. Improving per patient, but still requiring supplemental O2 (uses prn at home) Lasix 40mg IV x 1 in ER and continuing 40mg IV BID (takes 60 PO Qam, 40 Qpm typically) and has had progressive weight gain/edema --> net negative 1.6L currently, may be able to tolerate increased dose. Also would consider switching to torsemide given LE and gut edema as well Will also give Diamox 250mg PO x 1 to see if improvement in CO2 Monitor daily weights/I&O Supplemental O2 to maintain sats WBC 12.6k on admit --> currently 11.5K, afebrile. (on chronic steroids for RA/psoriatic arthritis and will give 10mg x 2 days, then back to usual 5mg daily) Procalcitonin <0.05 Follow BMP/electrolyte replacement as needed Follow up CHF if patient becomes agreeable --> family on board with this, vs weighing at home/using sliding scale Continue usual metoprolol, lisinopril (2) CHF (congestive heart failure): Plan: Expect acute exacerbation as above for diastolic HF given preserved EF on prior ECHO Lasix as above, monitoring response. Will need continued f/u at discharge as above Repeat ECHO ordered (3) Diabetes: Plan: also w/ DM neuropathy -- continues on gabapentin A1c 7.2 in May 2021 Holding home glimepiride, metformin Continue lantus 10u BID Utilize SSI while inpatient, BSGs well controlled (4) GERD (gastroesophageal reflux disease): Plan: Chronic, given pepcid x 1 in ER. On omeprazole [facility], and will utilize protonix while inpatient (5) Hyperlipidemia: Plan: Chronic Continue Atorvastatin (6) Hypertension: Plan: Chronic. Blood pressure controlled Continue amlodipine 10mg, metoprolol 200mg, lisinopril 40mg daily Continue to monitor (7) Rheumatoid arthritis: Plan: Chronic -Continue Prednisone -- 10mg x 2 days, then back to usual dosing -Continue Xeljanz -- to bring this in 08/29 (8) Sleep apnea: Plan: Patient does not wear CPAP , utilizes NC at home when sleeping due to intolerance of mask Admission and Anticipated Discharge Date Admission Date: August 28, 2021 Subjective Patient evaluated this morning. Doing alright. States breathing improved - he typically only has to use this at home as needed, primarily at night. Hx LIDYA but unable to tolerate CPAP. Denies any increased shortness of breath/cough/sputum production. No recent sick contacts or fever/chills endorsed. RLE edema slightly worse than LLE, denies hx of DVT (of note, refusing Lovenox SQ) or trauma to that leg. Calves non-tender. Discussed continuing Lasix IV BID for now. He states primarily edema to legs but he does get some abdominal fullness. Discussed can consider torsemide for better diuresis pending response. Questions/concerns addressed at this time. Updated /daughter on phone this afternoon. THey state sometimes just need to be more firm with Mr Campbell regarding need for daily weight/monitoring of diuretics and would like ot further discuss f/u with CHF clinic, although he did not apparently have good encounter with PA but has been following routinely with Dr Gonzalez. has been on those doses of diuretics since at least 2018 and discussed could just need increased dose/not effective anymore. THey do endorse he does eat canned tomato soups, but they have fresh meats/frozen veggies and typically do not salt foods at home. Review of Systems Review of Systems: All systems reviewed & are unremarkable except as noted in HPI & below Physical Exam Physical Exam: General: patient resting comfortably, sleeping upon arrival but easily awoken, no acute distress HEENT: head atraumatic, normocephalic, eyes anicteric, thick neck Resp: diminished throughout, no wheezes/crackles appreciated, on 3L NC CV: RRR, no m/r/g, 2+ b/l pitting LE edema, RLE>LLE but calves non-tender. small area of erythema to anterior rivera, non-tender, pulses palpable GI: +BS, distended/firm, hepatojugular reflex, no guarding/rigidity : no mendoza Psych: AOx3, cooperative Msk/Neuro: no focal deficit, speech clear, follows commands, no facial droop, strength equal Results & Data Results & Data ([facility]) Vital Signs (Past 12 Hours) Vital Signs Temp Pulse Resp BP Pulse Ox 08/28/21 22:21 36.4 C L 63 20 152/74 H 88 L 08/28/21 21:47 61 18 140/57 L 93 08/28/21 20:57 59 L 9 L 145/60 H 92 Laboratory Results 08/28/21 08/28/21 08/28/21 Range/Units 23:47 23:23 18:12 WBC (4.8-10.8) K/uL RBC (4.7-6.1) M/uL Hgb (14.0-18.0) g/dL Hct (42-52) % MCV (80-100) fL MCH (25-34) pg MCHC (32-36) g/dL RDW Std Deviation (36.4-46.3) fL RDW Coeff of Tony (11.5-14.5) % Plt Count (130-400) K/uL MPV (7.4-10.4) fL Immature Gran % (Auto) % Neut % (Auto) % Lymph % (Auto) % Daniels % (Auto) % Eos % (Auto) % Baso % (Auto) % Neut # (Auto) (1.4-6.5) K/uL Lymph # (Auto) (1.2-3.4) K/uL Daniels # (Auto) (0.11-0.59) K/uL Eos # (Auto) (0-0.5) K/uL Baso # (Auto) (0-0.2) K/uL Immature Gran # (Auto) (0.00-0.02) K/uL PT (9.0-12.0) Seconds INR (0.9-1.1) APTT (21.0-31.0) Seconds PTT Ratio Sodium 139 (136-145) mmol/L Potassium 4.3 (3.5-5.1) mmol/L Chloride 96 L (98-107) mmol/L Carbon Dioxide 36 H (21-32) mmol/L Anion Gap 7 (3-11) BUN 29 H (6-23) mg/dl Creatinine 1.26 (0.6-1.4) mg/dl Est Cr Clr Drug Dosing 62.2 ml/min Est GFR ( Amer) 62.9 ml/min Est GFR (Non-Af Amer) 54.3 ml/min BUN/Creatinine Ratio 23.0 H (10-20) Glucose 86 (70-99(Fasting)) mg/dl POC Glucose 98 (70-99) mg/dl Calcium 9.2 (8.5-10.1) mg/dl Magnesium (1.7-2.4) mg/dl Total Bilirubin (0.2-1.0) mg/dl AST (13-39) U/L ALT (7-52) U/L Alkaline Phosphatase (34-104) U/L Troponin I (0-0.04) ng/ml B-Natriuretic Peptide (0-100) pg/ml Total Protein (6.0-8.3) gm/dl Albumin (3.4-5.0) gm/dl Globulin (2.5-4.0) gm/dl Albumin/Globulin Ratio (0.9-2) SARS-CoV-2, RNA, NAAT NEGATIVE (NEGATIVE) 08/28/21 08/28/21 08/28/21 Range/Units 18:10 18:10 18:10 WBC (4.8-10.8) K/uL RBC (4.7-6.1) M/uL Hgb (14.0-18.0) g/dL Hct (42-52) % MCV (80-100) fL MCH (25-34) pg MCHC (32-36) g/dL RDW Std Deviation (36.4-46.3) fL RDW Coeff of Tony (11.5-14.5) % Plt Count (130-400) K/uL MPV (7.4-10.4) fL Immature Gran % (Auto) % Neut % (Auto) % Lymph % (Auto) % Daniels % (Auto) % Eos % (Auto) % Baso % (Auto) % Neut # (Auto) (1.4-6.5) K/uL Lymph # (Auto) (1.2-3.4) K/uL Daniels # (Auto) (0.11-0.59) K/uL Eos # (Auto) (0-0.5) K/uL Baso # (Auto) (0-0.2) K/uL Immature Gran # (Auto) (0.00-0.02) K/uL PT 10.6 (9.0-12.0) Seconds INR 1.0 (0.9-1.1) APTT 25.6 (21.0-31.0) Seconds PTT Ratio 0.9 Sodium 139 (136-145) mmol/L Potassium 4.3 (3.5-5.1) mmol/L Chloride 96 L (98-107) mmol/L Carbon Dioxide 35 H (21-32) mmol/L Anion Gap 8 (3-11) BUN 28 H (6-23) mg/dl Creatinine 1.33 (0.6-1.4) mg/dl Est Cr Clr Drug Dosing 59.1 ml/min Est GFR ( Amer) 58.9 ml/min Est GFR (Non-Af Amer) 50.8 ml/min BUN/Creatinine Ratio 21.1 H (10-20) Glucose 102 H (70-99(Fasting)) mg/dl POC Glucose (70-99) mg/dl Calcium 9.3 (8.5-10.1) mg/dl Magnesium 1.8 (1.7-2.4) mg/dl Total Bilirubin 0.6 (0.2-1.0) mg/dl AST 41 H (13-39) U/L ALT 55 H (7-52) U/L Alkaline Phosphatase 48 (34-104) U/L Troponin I 0.03 (0-0.04) ng/ml B-Natriuretic Peptide 160 H (0-100) pg/ml Total Protein 7.9 (6.0-8.3) gm/dl Albumin 4.0 (3.4-5.0) gm/dl Globulin 3.9 (2.5-4.0) gm/dl Albumin/Globulin Ratio 1.0 (0.9-2) SARS-CoV-2, RNA, NAAT (NEGATIVE) 08/28/21 Range/Units 18:10 WBC 12.61 H (4.8-10.8) K/uL RBC 4.47 L (4.7-6.1) M/uL Hgb 12.3 L (14.0-18.0) g/dL Hct 40.6 L (42-52) % MCV 90.8 (80-100) fL MCH 27.5 (25-34) pg MCHC 30.3 L (32-36) g/dL RDW Std Deviation 55.5 H (36.4-46.3) fL RDW Coeff of Tony 16.7 H (11.5-14.5) % Plt Count 307 (130-400) K/uL MPV 9.8 (7.4-10.4) fL Immature Gran % (Auto) 0.3 % Neut % (Auto) 73.7 % Lymph % (Auto) 18.2 % Daniels % (Auto) 6.3 % Eos % (Auto) 1.3 % Baso % (Auto) 0.2 % Neut # (Auto) 9.31 H (1.4-6.5) K/uL Lymph # (Auto) 2.29 (1.2-3.4) K/uL Daniels # (Auto) 0.79 H (0.11-0.59) K/uL Eos # (Auto) 0.16 (0-0.5) K/uL Baso # (Auto) 0.02 (0-0.2) K/uL Immature Gran # (Auto) 0.04 H (0.00-0.02) K/uL PT (9.0-12.0) Seconds INR (0.9-1.1) APTT (21.0-31.0) Seconds PTT Ratio Sodium (136-145) mmol/L Potassium (3.5-5.1) mmol/L Chloride (98-107) mmol/L Carbon Dioxide (21-32) mmol/L Anion Gap (3-11) BUN (6-23) mg/dl Creatinine (0.6-1.4) mg/dl Est Cr Clr Drug Dosing ml/min Est GFR ( Amer) ml/min Est GFR (Non-Af Amer) ml/min BUN/Creatinine Ratio (10-20) Glucose (70-99(Fasting)) mg/dl POC Glucose (70-99) mg/dl Calcium (8.5-10.1) mg/dl Magnesium (1.7-2.4) mg/dl Total Bilirubin (0.2-1.0) mg/dl AST (13-39) U/L ALT (7-52) U/L Alkaline Phosphatase (34-104) U/L Troponin I (0-0.04) ng/ml B-Natriuretic Peptide (0-100) pg/ml Total Protein (6.0-8.3) gm/dl Albumin (3.4-5.0) gm/dl Globulin (2.5-4.0) gm/dl Albumin/Globulin Ratio (0.9-2) SARS-CoV-2, RNA, NAAT (NEGATIVE) Diagnostic Findings Chest X-Ray 08/28/21 18:00 XR chest 1V portable CLINICAL HISTORY: Dyspnea TECHNIQUE: Single frontal radiograph of the chest was obtained. Comparison: Comparison is made to chest 2 views 08/22/2021 FINDINGS: No lines and tubes are seen. Cardiomegaly is noted. The lungs are clear. No evidence of pleural effusion or pneumothorax. IMPRESSION: No acute chest disease. ACT 112: Negative or not required by law. Electronically signed by: Himanshu Gracia M.D. 08/28/2021 6:45 PM PG Care Time/CCT Total # of Minutes Spent Total Time Spent with Patient: Total time spent is greater than 50% in coordination of care (as documented) at patient's floor/unit and/or counseling patient: Coding Level of Care Code 10982 Subseq Hosp Care Lvl 3 Diagnoses Acute respiratory failure with hypoxia J96.01 CHF (congestive heart failure) I50.9 Heart failure chronicity: acute Heart failure type: unspecified Diabetes E11.9 GERD (gastroesophageal reflux disease) K21.9 Hyperlipidemia E78.5 Hypertension I10 Hypertension type: unspecified Rheumatoid arthritis M06.9 Rheumatoid arthritis location: unspecified site Rheumatoid factor presence: unspecified presence Sleep apnea G47.30 (1) Rheumatoid arthritis Rheumatoid arthritis location: unspecified site Rheumatoid factor presence: unspecified presence Qualified Code(s): M06.9 - Rheumatoid arthritis, unspecified (2) CHF (congestive heart failure) Heart failure chronicity: acute Heart failure type: unspecified Qualified Code(s): I50.9 - Heart failure, unspecified (3) Hypertension Hypertension type: unspecified Qualified Code(s): I10 - Essential (primary) hypertension
[2021-08-29 07:57] LABS: Basophils # (auto) 0.02 K/uL (0-0.2); Basophils % (auto) 0.2 %; Eosinophils # (auto) 0.15 K/uL (0-0.5); Eosinophils % (auto) 1.3 %; Hematocrit (blood only) 41.5 % (42-52); Hemoglobin 12.5 g/dL (14.0-18.0); Immature Granulocytes # (auto) 0.03 K/uL (0.00-0.02); Immature Granulocytes % (auto) 0.3 %; Lymphocytes # (auto) 2.33 K/uL (1.2-3.4); Lymphocytes % (auto) 20.2 %; Mean Corpuscular Hemoglobin 27.7 pg (25-34); Mean Corpuscular Hgb Conc 30.1 g/dL (32-36); Mean Corpuscular Volume 91.8 fL (80-100); Monocytes # (auto) 0.79 K/uL (0.11-0.59); Monocytes % (auto) 6.9 %; Neutrophils # (auto) 8.19 K/uL (1.4-6.5); Neutrophils % (auto) 71.1 %; Platelet Count 267 K/uL (130-400); RDW Coefficient of Variation 16.7 % (11.5-14.5); Red Blood Count 4.52 M/uL (4.7-6.1); White Blood Count 11.51 K/uL (4.8-10.8)
[2021-08-29 08:21] LABS: Bilirubin,Total 0.6 mg/dl (0.2-1.0); Total Protein 7.6 gm/dl (6.0-8.3)
[2021-08-29] MEDS: GABAPENTIN 300 MG CAP PO SCH ×2 (08:40→21:27)
[2021-08-29] MEDS: lisinopril 40 MG TAB PO SCH (08:40)
[2021-08-29] MEDS: DOCUSATE SODIUM 100 MG CAP PO SCH (08:40)
[2021-08-29] MEDS: amLODIPine BESYLATE 5 MG TAB PO SCH (08:40)
[2021-08-29] MEDS: METOPROLOL SUCC 50MG EXT REL TAB PO SCH (08:40)
[2021-08-29] MEDS: ATORVASTATIN 10 MG TAB PO SCH (08:40)
[2021-08-29] MEDS: FUROSEMIDE 40 MG/4 ML VIAL IV SCH ×2 (08:41→16:57)
[2021-08-29] MEDS: INSULIN GLARGINE SOLOSTAR 100 UNITS/ML 3 ML PEN SC SCH ×2 (08:41→21:27)
[2021-08-29] MEDS: INSULIN ASPART PER UNIT SC SCH ×4 (08:45→21:26)
[2021-08-29] MEDS ORDERED: predniSONE 5 MG TAB PO SCH (09:00)
[2021-08-29] MEDS ORDERED: predniSONE 10 MG TABLET PO SCH (09:00)
[2021-08-29] MEDS ORDERED: predniSONE 5 MG TAB PO ONE (09:15)
[2021-08-29 09:32] LABS: BUN Creatinine Ratio 23.1 (10-20); Calcium 9.2 mg/dl (8.5-10.1); Creatinine Clr Calc Pharmacy 67.1 ml/min; Est GFR (African American) 68.8 ml/min; Est GFR (Non-African American) 59.4 ml/min; Potassium 4.4 mmol/L (3.5-5.1)
[2021-08-29] MEDS: ENOXAPARIN INJ 40 MG/0.4 ML SYR SQ SCH ×2 (10:29→21:30)
--- NOTE | 2021-08-29 10:45 | Electrocardiogram Report ---
Test Reason : Blood Pressure : / mmHG Vent. Rate : 061 BPM Atrial Rate : 061 BPM P-R Int : 234 ms QRS Dur : 100 ms QT Int : 426 ms P-R-T Axes : 049 009 065 degrees QTc Int : 428 ms Sinus rhythm with 1st degree A-V block Low voltage QRS Cannot rule out Inferior infarct , age undetermined Poor R wave progression, consider anterior CT vs. lead placement vs. LVH Abnormal ECG When compared with ECG of 21-APR-2019 16:37, No significant change was found Confirmed by Dom tSewart ([id number]) on 08/29/2021 10:45:13 AM Referred By: REFERRED SELF Confirmed By:Marcus Stewart
--- NOTE | 2021-08-29 12:44 | XCELERA ---
[id number]
[2021-08-29] MEDS ORDERED: acetaZOLAMIDE 250 MG TAB PO ONE (14:39)
[2021-08-29 21:16] LABS: BUN Creatinine Ratio 18.3 (10-20); Calcium 9.1 mg/dl (8.5-10.1); Creatinine Clr Calc Pharmacy 44.9 ml/min; Est GFR (African American) 42.3 ml/min; Est GFR (Non-African American) 36.5 ml/min; Potassium 4.4 mmol/L (3.5-5.1)
[2021-08-30] MEDS: ATORVASTATIN 10 MG TAB PO SCH (08:05)
[2021-08-30] MEDS: PANTOprazole 40 MG TAB PO SCH (08:05)
[2021-08-30] MEDS: amLODIPine BESYLATE 5 MG TAB PO SCH (08:05)
[2021-08-30] MEDS: METOPROLOL SUCC 50MG EXT REL TAB PO SCH (08:05)
[2021-08-30] MEDS: lisinopril 40 MG TAB PO SCH (08:05)
[2021-08-30] MEDS: DOCUSATE SODIUM 100 MG CAP PO SCH (08:05)
[2021-08-30] MEDS: predniSONE 10 MG TABLET PO SCH (08:06)
[2021-08-30] MEDS: TOFACITINIB CITRATE PO SCH (08:06)
[2021-08-30] MEDS: GABAPENTIN 300 MG CAP PO SCH ×2 (08:06→22:30)
--- NOTE | 2021-08-30 08:26 | Hospitalist Progress Note ---
Date of Service August 30, 2021 Assessment & Plan (1) Acute respiratory failure with hypoxia: Plan: 76yo male presenting with acute hypoxic respiratory failure. Saturations of 64% on arrival on room air which have improved to 96% on 3l nc. Symptoms progressive x 3 weeks with acute worsening over the last 5 days - orthopnea, edema, DENNISON and decreased exercise tolerance as well. Ddx to include CHF, presumed diatolic CHF given hx. Less likely PNA, PE. WBC 12.6k on admit --> currently 11.5K, afebrile. (on chronic steroids for RA/psoriatic arthritis and will give 10mg x 2 days, then back to usual 5mg daily) Procalcitonin <0.05 Improving per patient, but still requiring supplemental O2 (uses prn at home) but does have DECREASED EDEMA Lasix 40mg IV x 1 in ER and continuing 40mg IV BID (takes 60 PO Qam, 40 Qpm typically) and has had progressive weight gain/edema Diamox 250mg PO x 1 08/29 to see if improvement in CO2 (improved) additional dose 08/30 and monitor Obtained 2view CXR given initial 1 view not particularly helpful given body habitus --> does have moderate amount of congestion, confirmed with cards * Discussed with cards, would continue lasix IV BID for now, discharge on usual regimen and possible consider prn metolazone. * --> Would consider also 60mg PO BID at discharge short term as well with close follow up Monitor daily weights/I&O -- net negative 2.3L since admission Supplemental O2 to maintain sats -- still requiring O2 Follow BMP/electrolyte replacement as needed Follow up CHF if patient becomes agreeable --> family on board with this, vs weighing at home/using sliding scale Continue usual metoprolol, lisinopril (2) CHF (congestive heart failure): Plan: Expect acute exacerbation as above for diastolic HF given preserved EF on prior ECHO Lasix as above, monitoring response. Will need continued f/u at discharge as above Repeat ECHO ordered, unchanged (3) Diabetes: Plan: also w/ DM neuropathy -- continues on gabapentin A1c 7.2 in May 2021 Holding home glimepiride, metformin Continue lantus 10u BID Utilize SSI while inpatient, BSGs well controlled (4) GERD (gastroesophageal reflux disease): Plan: Chronic, given pepcid x 1 in ER. On omeprazole [employer], and will utilize protonix while inpatient (5) Hyperlipidemia: Plan: Chronic Continue Atorvastatin (6) Hypertension: Plan: Chronic. Blood pressure controlled Continue amlodipine 10mg, metoprolol 200mg, lisinopril 40mg daily placed on hold while diuresing to prevent worsening kidney function Continue to monitor (7) Rheumatoid arthritis: Plan: Chronic Continue Prednisone -- 10mg x 2 days, then back to usual dosing -Continue Xeljanz -- brought in (8) Sleep apnea: Plan: Patient does not wear CPAP , utilizes NC at home when sleeping due to intolerance of mask Plan: continued inpatient stay, patient is hopeful for discharge in next 24-48 hours will need close outpatient follow up Admission and Anticipated Discharge Date Admission Date: August 28, 2021 Subjective Patient evaluated this morning. Feeling better, leg edema improved. Urinating without difficulty. States breathing improved but still requiring diuretics. Seen by Dr Gonzalez and will continue diuresis, resuming IV this evening but will message about possibly using torsemide. Passing gas but no BM, but hadn't been eating much prior couple of days. No fever, chills, chest pain, cough/sputum production, abdominal pain, nausea or vomiting. Review of Systems Review of Systems: All systems reviewed & are unremarkable except as noted in HPI & below Physical Exam Physical Exam: General: patient resting comfortably, sitting up in chair drinking, no acute distress HEENT: head atraumatic, normocephalic, eyes anicteric, thick neck Resp: diminished throughout but better air movement today, bilateral rales, end expiratory wheezing, on nasal cannula CV: RRR, no m/r/g, 1-2+ b/l pre-tibial edema (decreased), RLE>LLE edema but about the same today, decreased small area of erythema to anterior rivera, non- tender, pulses palpable GI: +BS, distended/firm (less), hepatojugular reflex, no guarding/rigidity : no mendoza Psych: AOx3, cooperative Msk/Neuro: no focal deficit, speech clear, follows commands, no facial droop, strength equal Results & Data Results & Data ([facility]) Vital Signs (Past 12 Hours) Vital Signs Temp Pulse Resp BP Pulse Ox 08/30/21 07:46 36.4 C L 61 18 143/63 H 92 08/29/21 22:40 36.5 C 58 L 22 129/68 93 Laboratory Results 08/30/21 08/30/21 08/30/21 Range/Units 11:50 08:01 07:22 WBC (4.8-10.8) K/uL RBC (4.7-6.1) M/uL Hgb (14.0-18.0) g/dL Hct (42-52) % MCV (80-100) fL MCH (25-34) pg MCHC (32-36) g/dL RDW Std Deviation (36.4-46.3) fL RDW Coeff of Tony (11.5-14.5) % Plt Count (130-400) K/uL MPV (7.4-10.4) fL Sodium (136-145) mmol/L Potassium (3.5-5.1) mmol/L Chloride (98-107) mmol/L Carbon Dioxide (21-32) mmol/L Anion Gap (3-11) BUN (6-23) mg/dl Creatinine (0.6-1.4) mg/dl Est Cr Clr Drug Dosing ml/min Est GFR ( Amer) ml/min Est GFR (Non-Af Amer) ml/min BUN/Creatinine Ratio (10-20) Glucose (70-99(Fasting)) mg/dl POC Glucose 237 H 103 H (70-99) mg/dl Calcium (8.5-10.1) mg/dl Magnesium (1.7-2.4) mg/dl Total Bilirubin (0.2-1.0) mg/dl Direct Bilirubin (0-0.2) mg/dl AST (13-39) U/L ALT (7-52) U/L Alkaline Phosphatase (34-104) U/L Total Protein (6.0-8.3) gm/dl Albumin (3.4-5.0) gm/dl TSH 1.285 (0.300-4.500) uIu/ml 08/30/21 08/30/21 08/29/21 Range/Units 07:22 07:22 21:20 WBC 11.53 H (4.8-10.8) K/uL RBC 4.28 L (4.7-6.1) M/uL Hgb 12.1 L (14.0-18.0) g/dL Hct 38.6 L (42-52) % MCV 90.2 (80-100) fL MCH 28.3 (25-34) pg MCHC 31.3 L (32-36) g/dL RDW Std Deviation 54.5 H (36.4-46.3) fL RDW Coeff of Tony 16.5 H (11.5-14.5) % Plt Count 269 (130-400) K/uL MPV 10.1 (7.4-10.4) fL Sodium 137 (136-145) mmol/L Potassium 3.8 (3.5-5.1) mmol/L Chloride 96 L (98-107) mmol/L Carbon Dioxide 35 H (21-32) mmol/L Anion Gap 6 (3-11) BUN 32 H (6-23) mg/dl Creatinine 1.34 D (0.6-1.4) mg/dl Est Cr Clr Drug Dosing 58.6 ml/min Est GFR ( Amer) 58.4 ml/min Est GFR (Non-Af Amer) 50.4 ml/min BUN/Creatinine Ratio 23.9 H (10-20) Glucose 88 (70-99(Fasting)) mg/dl POC Glucose 157 H (70-99) mg/dl Calcium 9.1 (8.5-10.1) mg/dl Magnesium 1.9 (1.7-2.4) mg/dl Total Bilirubin 0.7 (0.2-1.0) mg/dl Direct Bilirubin 0.1 (0-0.2) mg/dl AST 55 H (13-39) U/L ALT 62 H (7-52) U/L Alkaline Phosphatase 44 (34-104) U/L Total Protein 7.5 (6.0-8.3) gm/dl Albumin 3.9 (3.4-5.0) gm/dl TSH (0.300-4.500) uIu/ml 08/29/21 08/29/21 Range/Units 20:44 17:09 WBC (4.8-10.8) K/uL RBC (4.7-6.1) M/uL Hgb (14.0-18.0) g/dL Hct (42-52) % MCV (80-100) fL MCH (25-34) pg MCHC (32-36) g/dL RDW Std Deviation (36.4-46.3) fL RDW Coeff of Tony (11.5-14.5) % Plt Count (130-400) K/uL MPV (7.4-10.4) fL Sodium 135 L (136-145) mmol/L Potassium 4.4 (3.5-5.1) mmol/L Chloride 92 L (98-107) mmol/L Carbon Dioxide 37 H (21-32) mmol/L Anion Gap 6 (3-11) BUN 32 H (6-23) mg/dl Creatinine 1.75 H D (0.6-1.4) mg/dl Est Cr Clr Drug Dosing 44.9 ml/min Est GFR ( Amer) 42.3 ml/min Est GFR (Non-Af Amer) 36.5 ml/min BUN/Creatinine Ratio 18.3 (10-20) Glucose 159 H (70-99(Fasting)) mg/dl POC Glucose 184 H (70-99) mg/dl Calcium 9.1 (8.5-10.1) mg/dl Magnesium (1.7-2.4) mg/dl Total Bilirubin (0.2-1.0) mg/dl Direct Bilirubin (0-0.2) mg/dl AST (13-39) U/L ALT (7-52) U/L Alkaline Phosphatase (34-104) U/L Total Protein (6.0-8.3) gm/dl Albumin (3.4-5.0) gm/dl TSH (0.300-4.500) uIu/ml PG Care Time/CCT Total # of Minutes Spent Total Time Spent with Patient: Total time spent is greater than 50% in coordination of care (as documented) at patient's floor/unit and/or counseling patient: Coding Level of Care Code 73621 Subseq Hosp Care Lvl 3 Diagnoses Acute respiratory failure with hypoxia J96.01 CHF (congestive heart failure) I50.9 Heart failure chronicity: acute Heart failure type: unspecified Diabetes E11.9 GERD (gastroesophageal reflux disease) K21.9 Hyperlipidemia E78.5 Hypertension I10 Hypertension type: unspecified Rheumatoid arthritis M06.9 Rheumatoid arthritis location: unspecified site Rheumatoid factor presence: unspecified presence Sleep apnea G47.30 (1) CHF (congestive heart failure) Heart failure chronicity: acute Heart failure type: unspecified Qualified Code(s): I50.9 - Heart failure, unspecified (2) Hypertension Hypertension type: unspecified Qualified Code(s): I10 - Essential (primary) hypertension (3) Rheumatoid arthritis Rheumatoid arthritis location: unspecified site Rheumatoid factor presence: unspecified presence Qualified Code(s): M06.9 - Rheumatoid arthritis, unspecified
[2021-08-30 08:29] LABS: Hematocrit (blood only) 38.6 % (42-52); Hemoglobin 12.1 g/dL (14.0-18.0); Mean Corpuscular Hemoglobin 28.3 pg (25-34); Mean Corpuscular Hgb Conc 31.3 g/dL (32-36); Mean Corpuscular Volume 90.2 fL (80-100); Mean Platelet Volume 10.1 fL (7.4-10.4); Platelet Count 269 K/uL (130-400); RDW Coefficient of Variation 16.5 % (11.5-14.5); RDW Standard Deviation 54.5 fL (36.4-46.3); Red Blood Count 4.28 M/uL (4.7-6.1); White Blood Count 11.53 K/uL (4.8-10.8)
[2021-08-30 08:42] LABS: Albumin Level 3.9 gm/dl (3.4-5.0); BUN Creatinine Ratio 23.9 (10-20); Bilirubin Direct 0.1 mg/dl (0-0.2); Bilirubin,Total 0.7 mg/dl (0.2-1.0); Calcium 9.1 mg/dl (8.5-10.1); Creatinine Clr Calc Pharmacy 58.6 ml/min; Est GFR (African American) 58.4 ml/min; Est GFR (Non-African American) 50.4 ml/min; Magnesium 1.9 mg/dl (1.7-2.4); Potassium 3.8 mmol/L (3.5-5.1); Total Protein 7.5 gm/dl (6.0-8.3)
[2021-08-30] MEDS: INSULIN GLARGINE SOLOSTAR 100 UNITS/ML 3 ML PEN SC SCH ×2 (08:49→22:29)
[2021-08-30] MEDS: INSULIN ASPART PER UNIT SC SCH ×4 (08:51→22:29)
[2021-08-30] MEDS ORDERED: acetaZOLAMIDE 250 MG TAB PO ONE (09:30)
--- NOTE | 2021-08-30 09:50 | XRay Report ---
XR chest 2V PA/lateral HISTORY: f/u hypoxia COMPARISON: Chest 08/28/2021. FINDINGS: There are low lung volumes. No pneumothorax. No pleural effusions. The cardiac silhouette r emains enlarged. There is mild central pulmonary vascular congestion without overt edema. Similar to the prior study. No new focal lung consolidations. IMPRESSION: Stable cardiomegaly and mild congestive change. ACT 112: Negative or not required by law. Electronically signed by: Vijay Reynoso M.D. 08/30/2021 9:48 AM
--- NOTE | 2021-08-30 10:14 | Cardiology Consultation ---
Date of Consultation August 30, 2021 Assessment & Plan (1) CHF (congestive heart failure): 1. Congestive heart failure: He has a history of diastolic congestive heart failure and we only see him intermittently in the office. He has been doing quite well until recently, his recent exacerbation of CHF is for unclear reasons. His weight has not increased appreciably, his creatinine was up somewhat on presentation and is down now and he had a sense that his diuretics were not working as well as they had in the past. Perhaps he developed a cycle of cardiorenal syndrome with decreased urine output and rising creatinine. He is clearly improved, I would diurese him for at least a day or 2 more to make sure he is euhydrated, his creatinine has decreased and his BUN has not increased and he still has basilar crackles in his lungs so I would continue with diuresis for now. I will make sure that we have set up follow-up in our heart failure clinic after discharge. He is scheduled to see us for a preop visit September 06, 2021 which I believe in place and he has an appointment with me January 09, 2022. History of Present Illness Reason for Consultation: CHF Attending Physician: Chencho Leal History of Present Illness This is a 75-year-old male who has a history of morbid obesity with lung disease including COPD and obesity hypoventilation as well as severe sleep apnea and pulmonary hypertension. He also has diabetes mellitus. He presented with what he describes as sudden onset of shortness of breath March 30, 2018, he was observed to be in diastolic congestive heart failure at the time. He did have left ventricular hypertrophy as well as marked systolic hypertension at the time. He did not have any evidence of myocardial ischemia. He presented again April 08, 2019 with fluid overload, echocardiography suggested an ejection fraction of 45 to 50% with abnormal septal motion consistent with right ventricular volume overload. He was diuresed and discharged several days later. We were able to titrate him to goal doses of heart failure medications and his left ventricular function normalized. As of October 05, 2019 his left ventricular ejection fraction was normal. His echocardiogram done December 23, 2020 shows a slightly dilated left ventricle with normal left ventricular systolic function, mild concentric left ventricular hypertrophy. An electrocardiogram done August 28, 2021 shows sinus rhythm with first-degree AV block, low voltage and a possible inferior and anterior myocardial infarction although that may be artifactual. Similar to prior electrocardiograms going back to 2019. An echocardiogram done August 29, 2021 shows normal left ventricular systolic function with mild concentric left ventricular hypertrophy, aortic sclerosis without stenosis and a normal right ventricular systolic pressure. His chest x- ray on presentation was felt not to represent heart failure, however it is little difficult to read based on his body habitus and today's chest x-ray which is a PA and lateral does not show a lot of heart failure on my review although was read as showing mild CHF. He presents with several weeks of progressive shortness of breath and leg swelling. He tells me that he has not been drinking a lot of fluid, he feels that his diuretic is not working as well as it was and feels that is why he retained fluid. Following admission and diuresis he has been feeling much better, he has had almost complete resolution of his leg edema and has less shortness of breath but remains on oxygen. He has had no chest discomfort, no lightheadedness or dizziness. Allergies Allergy/AdvReac Type Severity Reaction Status Date / Time codeine Allergy Intermediate HIVES--PT Verified 08/28/21 18:26 DOES NOT USE PERCOCET Home Medications Medication Instructions Recorded Confirmed Type clobetasol 0.05 % topical cream 1 applic TOPICAL BID PRN 03/30/18 08/28/21 History clotrimazole 1 % topical cream 1 applic TOPICAL BID PRN 03/30/18 08/28/21 History blood sugar diagnostic #10 ea 04/23/19 08/08/21 History omeprazole 20 mg capsule,delayed 20 mg PO DAILY #30 cap 12/02/19 08/28/21 Rx release magnesium oxide 400 mg PO TID #270 tab 03/03/20 08/28/21 Rx tofacitinib 11 mg tablet,extended 11 mg PO DAILY #1 tab 08/01/20 08/28/21 Rx release 24 hr (Xeljanz XR) linagliptin 5 mg tablet (Tradjenta) 5 mg PO DAILY #30 tab 10/06/20 08/28/21 Rx furosemide 40 mg tablet See Rx Instructions PO DAILY #90 10/17/20 08/28/21 Rx tab cholecalciferol (vitamin D3) 25 5,000 unit PO DAILY cap 11/04/20 08/28/21 Hi story mcg (1,000 unit) capsule (Vitamin D3) prednisone 5 mg tablet 5 mg PO DAILY tab 12/28/20 08/28/21 History gabapentin 300 mg capsule 300 mg PO BID #180 cap 03/13/21 08/28/21 Rx metoprolol succinate 200 mg 200 mg PO DAILY #90 tab 04/18/21 08/28/21 Rx tablet,extended release 24 hr atorvastatin 10 mg tablet 10 mg PO DAILY #90 tab 04/25/21 08/28/21 Rx lisinopril 40 mg tablet 40 mg PO DAILY #90 tab 06/15/21 08/28/21 Rx potassium chloride 10 mEq 10 meq PO DAILY #90 cap 06/22/21 08/28/21 Rx capsule,extended release glimepiride 2 mg tablet 2 mg PO BID #180 tab 06/29/21 08/28/21 Rx metformin 500 mg tablet 500 mg PO BID #180 tab 08/16/21 08/28/21 Rx amlodipine 10 mg tablet 10 mg PO DAILY 08/28/21 08/28/21 History docusate sodium 100 mg capsule 100 mg PO DAILY 08/28/21 08/28/21 History Patient History Medical History CHF (congestive heart failure) Diabetes GERD (gastroesophageal reflux disease) Hyperlipidemia Hypertension Rheumatoid arthritis Sleep apnea Stage 2 chronic kidney disease Surgical History History of arthroplasty of right shoulder History of bilateral knee replacement Hx of appendectomy Hx of cholecystectomy Hx of hernia repair Family History Father Myocardial infarction Heart disease Mother Cancer Non-Hodgkins lymphoma Sister Ovarian cancer Brother Lung cancer Grandfather Diabetes Other Family history non-contributory Denies family history of Prostate cancer Breast cancer Colorectal cancer Social History Smoking Status: Never smoker Second Hand Exposure: No; Hx Alcohol Use: No Hx Substance Use: No Preferred Language: Albanian Communication Ability: Effective 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 He is obese. He is sitting on the side of his bed on oxygen. HEENT: Unremarkable Neck: No jugular venous distention, carotid pulses are normal and equal bilaterally without bruits. Pulmonary: Bilateral basilar rales Cardiac: Regular rhythm with no murmur, gallop or rub. Abdomen: Soft, nontender with normal bowel sounds. Extremities: +1 bilateral pretibial edema. Distal pulses intact. Neurologic: No focal findings. Gait was not tested. Skin: No rash, ecchymoses or petechiae. Results & Data ([facility]) Vital Signs (Past 12 Hours) Vital Signs Temp Pulse Resp BP Pulse Ox 08/30/21 07:46 36.4 C L 61 18 143/63 H 92 08/29/21 22:40 36.5 C 58 L 22 129/68 93 Laboratory Results Cardiac Enzymes 08/30/21 Range/Units 07:22 AST 55 H (13-39) U/L CBC 08/30/21 Range/Units 07:22 WBC 11.53 H (4.8-10.8) K/uL RBC 4.28 L (4.7-6.1) M/uL Hgb 12.1 L (14.0-18.0) g/dL Hct 38.6 L (42-52) % Plt Count 269 (130-400) K/uL Comprehensive Metabolic Panel 08/29/21 08/30/21 Range/Units 20:44 07:22 Sodium 135 L 137 (136-145) mmol/L Potassium 4.4 3.8 (3.5-5.1) mmol/L Chloride 92 L 96 L (98-107) mmol/L Carbon Dioxide 37 H 35 H (21-32) mmol/L BUN 32 H 32 H (6-23) mg/dl Creatinine 1.75 H D 1.34 D (0.6-1.4) mg/dl Glucose 159 H 88 (70-99(Fasting)) mg/dl Calcium 9.1 9.1 (8.5-10.1) mg/dl Direct Bilirubin 0.1 (0-0.2) mg/dl AST 55 H (13-39) U/L ALT 62 H (7-52) U/L Alkaline Phosphatase 44 (34-104) U/L Total Protein 7.5 (6.0-8.3) gm/dl Albumin 3.9 (3.4-5.0) gm/dl Intake and Output 08/29/21 08/30/21 08/30/21 22:59 06:59 14:59 Intake Total 540 / 1380 200 / 1380 Output Total 875 / 2775 575 / 2775 Balance -335 / -1395 -375 / -1395 Intake: Oral 540 / 1380 200 / 1380 Output: Urine 875 / 2775 575 / 2775 Other: # Unmeasured Voids 1 Weight 132.3 kg 132.1 kg Weight Measurement Method Standing Scale Diagnostic Findings Echocardiogram, chest x-ray and ECG were reviewed as noted in the HPI PG Care Time/CCT Total # of Minutes Spent Total Time Spent with Patient: Total time spent is greater than 50% in coordination of care (as documented) at patient's floor/unit and/or counseling patient: Coding Level of Care Code 41017 Initial Inpt Care Lvl 3 Diagnoses CHF (congestive heart failure) I50.9 Heart failure chronicity: acute Heart failure type: unspecified (1) CHF (congestive heart failure) Heart failure chronicity: acute Heart failure type: unspecified Qualified Code(s): I50.9 - Heart failure, unspecified
[2021-08-30] MEDS: ALBUT/IPRATROP 3MG/0.5MG NEB 3 ML VIAL NEB SCH ×2 (11:02→15:18)
[2021-08-30] MEDS: ENOXAPARIN INJ 40 MG/0.4 ML SYR SQ SCH ×2 (12:30→22:30)
[2021-08-30] MEDS: POTASSIUM CHLORIDE CRTAB 20 MEQ TABCR PO SCH (14:33)
[2021-08-30] MEDS: FUROSEMIDE 40 MG/4 ML VIAL IV SCH ×3 (17:00→18:09)
[2021-08-30] MEDS ORDERED: ALBUT/IPRATROP 3MG/0.5MG NEB 3 ML VIAL NEB PRN (17:02)
[2021-08-31] MEDS: FUROSEMIDE 40 MG/4 ML VIAL IV SCH (05:58)
[2021-08-31 06:24] LABS: Hematocrit (blood only) 38.4 % (42-52); Hemoglobin 11.9 g/dL (14.0-18.0); Mean Corpuscular Hemoglobin 27.7 pg (25-34); Mean Corpuscular Volume 89.5 fL (80-100); Platelet Count 257 K/uL (130-400); RDW Coefficient of Variation 16.4 % (11.5-14.5); RDW Standard Deviation 53.7 fL (36.4-46.3); Red Blood Count 4.29 M/uL (4.7-6.1); White Blood Count 9.91 K/uL (4.8-10.8)
[2021-08-31 07:06] LABS: BUN Creatinine Ratio 23.7 (10-20); Calcium 8.9 mg/dl (8.5-10.1); Creatinine Clr Calc Pharmacy 45.7 ml/min; Est GFR (African American) 42.9 ml/min; Magnesium 2.2 mg/dl (1.7-2.4); Potassium 4.6 mmol/L (3.5-5.1)
[2021-08-31] MEDS ORDERED: FUROSEMIDE 40 MG/4 ML VIAL IV SCH ×2 (09:03→16:00)
[2021-08-31] MEDS ORDERED: AZITHROMYCIN 250 MG TAB PO SCH (09:15)
[2021-08-31] MEDS: PANTOprazole 40 MG TAB PO SCH (09:21)
[2021-08-31] MEDS: ATORVASTATIN 10 MG TAB PO SCH (09:21)
[2021-08-31] MEDS: POTASSIUM CHLORIDE CRTAB 20 MEQ TABCR PO SCH (09:21)
[2021-08-31] MEDS: DOCUSATE SODIUM 100 MG CAP PO SCH (09:21)
[2021-08-31] MEDS: GABAPENTIN 300 MG CAP PO SCH (09:22)
[2021-08-31] MEDS: TOFACITINIB CITRATE PO SCH (09:22)
[2021-08-31] MEDS: predniSONE 10 MG TABLET PO SCH (09:22)
[2021-08-31] MEDS: INSULIN ASPART PER UNIT SC SCH ×2 (09:36→13:30)
[2021-08-31] MEDS: INSULIN GLARGINE SOLOSTAR 100 UNITS/ML 3 ML PEN SC SCH (09:36)
--- NOTE | 2021-08-31 09:42 | Cardiology Progress Note ---
Date of Service August 31, 2021 Assessment & Plan (1) CHF (congestive heart failure): Plan: 1. Congestive heart failure: He has a history of diastolic congestive heart failure and we only see him intermittently in the office. He has been doing quite well until recently, his recent exacerbation of CHF is for unclear reasons. His weight has not increased appreciably, and he had a sense that his diuretics were not working as well as they had in the past. Perhaps he developed a cycle of cardiorenal syndrome with decreased urine output and rising creatinine. His creatinine had dropped but now is back up, however his BUN had been stable and that now is up as well. Clinically he is clearly improved, I would be inclined to leave things as they are. I think he is quite sensitive to fluid volume. He is scheduled to see us for a preop visit September 06, 2021 which I will leave in place and he has an appointment with me January 09, 2022. Admission and Anticipated Discharge Date Admission Date: August 28, 2021 Subjective Feeling better this morning, denies shortness of breath, no difficulty ambulating in the room. He feels that he is back to normal and markedly improved from admission. He does have little trouble sleeping but no other complaints. Physical Exam Physical Exam: Constitutional: Alert, cooperative and in no distress. He is obese. He is sitting on the side of his bed on oxygen. HEENT: Unremarkable Neck: No jugular venous distention, carotid pulses are normal and equal bilaterally without bruits. Pulmonary: Bilateral basilar rales Cardiac: Regular rhythm with no murmur, gallop or rub. Abdomen: Soft, nontender with normal bowel sounds. Extremities: No pretibial edema. Distal pulses intact. Neurologic: No focal findings. Gait was not tested. Skin: No rash, ecchymoses or petechiae. Results & Data ([facility]) Vital Signs (Past 12 Hours) Vital Signs Temp Pulse Resp BP Pulse Ox 08/31/21 08:29 36.4 C L 52 L 16 151/74 H 95 Laboratory Results CBC 08/31/21 Range/Units 05:34 WBC 9.91 (4.8-10.8) K/uL RBC 4.29 L (4.7-6.1) M/uL Hgb 11.9 L (14.0-18.0) g/dL Hct 38.4 L (42-52) % Plt Count 257 (130-400) K/uL Comprehensive Metabolic Panel 08/31/21 Range/Units 05:34 Sodium 137 (136-145) mmol/L Potassium 4.6 D (3.5-5.1) mmol/L Chloride 96 L (98-107) mmol/L Carbon Dioxide 36 H (21-32) mmol/L BUN 41 H (6-23) mg/dl Creatinine 1.73 H D (0.6-1.4) mg/dl Glucose 122 H (70-99(Fasting)) mg/dl Calcium 8.9 (8.5-10.1) mg/dl Intake and Output 08/30/21 08/31/21 08/31/21 22:59 06:59 14:59 Intake Total 400 / 640 Output Total 200 / 775 575 / 775 300 / 300 Balance -200 / -135 -175 / -135 -300 / -300 Intake: Oral 400 / 640 Output: Urine 200 / 775 575 / 775 300 / 300 Other: Weight 134 kg Weight Measurement Method Built in [facility] Care Time/CCT Total # of Minutes Spent Total Time Spent with Patient: Total time spent is greater than 50% in coordination of care (as documented) at patient's floor/unit and/or counseling patient: Coding Level of Care Code 81148 Subseq Hosp Care Lvl 2 Diagnoses CHF (congestive heart failure) I50.9 Heart failure chronicity: acute Heart failure type: unspecified (1) CHF (congestive heart failure) Heart failure chronicity: acute Heart failure type: unspecified Qualified Code(s): I50.9 - Heart failure, unspecified
--- NOTE | 2021-08-31 10:23 | XRay Report ---
XR chest 2V PA/lateral HISTORY: follow up congestion COMPARISON: Chest 08/30/2021. FINDINGS: There are low lung volumes. No pneumothorax. No pleural effusion is. The heart remains mild ly enlarged. The pulmonary vasculature congestion has almost completely resolved in the interval. A f ew left basilar linear densities favor subsegmental atelectasis. Otherwise, no new focal lung consoli dations. Calcifications again noted within the aortic knob. IMPRESSION: 1. Near-complete resolution of the pulmonary vascular congestion. 2. Stable cardiomegaly. 3. A few left basilar linear densities. These are nonspecific but favor atelectasis. A pneumonia coul d also have a similar appearance in the appropriate clinical setting. ACT 112: Negative or not required by law. Electronically signed by: Vijay Reynoso M.D. 08/31/2021 10:22 AM
[2021-08-31] MEDS: ENOXAPARIN INJ 40 MG/0.4 ML SYR SQ SCH (10:53)
[2021-08-31] MEDS: METOPROLOL SUCC 50MG EXT REL TAB PO SCH (10:53)
--- NOTE | 2021-08-31 10:54 | Discharge Summary ---
Date of Service August 31, 2021 Admission HPI Per Admitting Provider Sarwat Campbell is a pleasant 76yo male with history of DM, CHF, HTN, HLP presenting with progressive dyspnea. Patient's symptoms began appx 3 weeks ago with some mild decrease in exercise tolerance and edema as well as exertional dyspnea. Symptoms have been progressive over the last 3 weeks with rapid worsening over the last 5 days. He has noted some worsening BL LE edema R >L as well as DENNISON and orthopnea. He has had early satiety as well and has been eating appx 1/3 of what he was previously eating. Patient denies chest pain, palpitations, fever, chills, cough, abdominal pain, nausea, vomiting, diarrhea or constipation. He has been taking his medication as prescribed. No recent changes. No increased salt intake. Upon arrival to the ER patient with acute hypoxic respiratory failure with saturation of 64% on room air Patient has O2 at home which he is to use PRN - 3L by portable concentrator. He reports using it very infrequently but was using 4L earlier today. Patient is vaccinated + booster against Covid-19 Covid test in the ER is NEGATIVE ER Course: Lasix 40mg IV Admission Exam Per Admitting Provider General: patient resting comfortably, NAD, non-toxic in appearance, AA&O x 4 Skin: warm, dry, intact, no rashes or lesions HEENT: NC/AT, PERRL, EOMI, anicteric sclera, conjunctiva without injection, external ear normal to inspection and nontender, nares patent, moist mucus membranes, dentition intact, no oropharyngeal lesions, neck supple, trachea midline, no LAD, no thyromegaly, no JVD Heart: +S1/S2, regular, no m/r/g Lungs: equal air entry bilaterally, crackles in bilateral lung bases Abd: +BS, soft, NT/ND, no masses/organomegaly/ascites Ext: warm, 2+ pulses in UE/LE bilaterally, no clubbing/cyanosis, 2+ edema of bilateral LE Neuro: nonfocal, patient AA&O x 4, speech intact, no facial droop, moving all extremities on command with equal strength 5/5 Principal Diagnosis CHF exacerbation Discharge Exam General: patient resting comfortably, sitting up in chair drinking, no acute distress HEENT: head atraumatic, normocephalic, eyes anicteric, thick neck Resp: diminished throughout but better air movement today, bilateral rales, end expiratory wheezing, on room air laying flat in bed, no distress CV: RRR, no m/r/g, 1-2+ b/l pre-tibial edema (decreased), RLE>LLE edema but decreased compared to prior, decreased small area of erythema to anterior rivera, non-tender, pulses palpable GI: +BS, distended/firm (less), hepatojugular reflex, no guarding/rigidity : no mendoza Psych: AOx3, cooperative Msk/Neuro: no focal deficit, speech clear, follows commands, no facial droop, strength equal Discharge Data Allergies Allergy/AdvReac Type Severity Reaction Status Date / Time codeine Allergy Intermediate HIVES--PT Verified 09/04/21 12:01 DOES NOT USE PERCOCET Consultations 08/28/21 20:02 ED Decision to Admit Stat 08/30/21 06:17 Consult Cardiology Routine Ordered Studies Chest X-Ray 08/28/21 18:00 XR chest 1V portable CLINICAL HISTORY: Dyspnea TECHNIQUE: Single frontal radiograph of the chest was obtained. Comparison: Comparison is made to chest 2 views 08/22/2021 FINDINGS: No lines and tubes are seen. Cardiomegaly is noted. The lungs are clear. No evidence of pleural effusion or pneumothorax. IMPRESSION: No acute chest disease. ACT 112: Negative or not required by law. Electronically signed by: Himanshu Gracia M.D. 08/28/2021 6:45 PM Chest X-Ray 08/30/21 08:23 XR chest 2V PA/lateral HISTORY: f/u hypoxia COMPARISON: Chest 08/28/2021. FINDINGS: There are low lung volumes. No pneumothorax. No pleural effusions. The cardiac silhouette remains enlarged. There is mild central pulmonary vascular congestion without overt edema. Similar to the prior study. No new focal lung consolidations. IMPRESSION: Stable cardiomegaly and mild congestive change. ACT 112: Negative or not required by law. Electronically signed by: Vijay Reynoso M.D. 08/30/2021 9:48 AM Chest X-Ray 08/31/21 09:02 XR chest 2V PA/lateral HISTORY: follow up congestion COMPARISON: Chest 08/30/2021. FINDINGS: There are low lung volumes. No pneumothorax. No pleural effusion is. The heart remains mildly enlarged. The pulmonary vasculature congestion has almost completely resolved in the interval. A few left basilar linear densities favor subsegmental atelectasis. Otherwise, no new focal lung consolidations. Calcifications again noted within the aortic knob. IMPRESSION: 1. Near-complete resolution of the pulmonary vascular congestion. 2. Stable cardiomegaly. 3. A few left basilar linear densities. These are nonspecific but favor atelectasis. A pneumonia could also have a similar appearance in the appropriate clinical setting. ACT 112: Negative or not required by law. Electronically signed by: Vijay Reynoso M.D. 08/31/2021 10:22 AM 08/29 ECHOCARDIOGRAM LV systolic function normal (EF 55-60%) Mild concentric LVH Aortic valve sclerosis mild without significant aortic valvular stenosis RV systolic pressure is normal Compared to echo 12/2020, no significant change Hospital Course (1) Acute respiratory failure with hypoxia: 76yo male presenting with acute hypoxic respiratory failure. Saturations of 64% on arrival on room air which have improved to 96% on 3l nc. Symptoms progressive x 3 weeks with acute worsening over the last 5 days - orthopnea, edema, DENNISON and decreased exercise tolerance as well. Ddx to include CHF, presumed diatolic CHF given hx. Less likely PNA, PE. WBC 12.6k on admit --> currently 11.5K, afebrile. (on chronic steroids for RA/psoriatic arthritis and given 10mg x 2 days, then back to usual 5mg daily for stress purposes) Procalcitonin <0.05 Improving per patient, but still requiring supplemental O2 (uses prn at home) but does have DECREASED EDEMA Lasix 40mg IV x 1 in ER and continuing 40mg IV BID (takes 60 PO Qam, 40 Qpm typically) and has had progressive weight gain/edema Diamox 250mg PO x 1 08/29 to see if improvement in CO2 (improved) additional dose 08/30 with improvement Obtained 2view CXR given initial 1 view not particularly helpful given body habitus --> does have moderate amount of congestion, confirmed with cards * Discussed with cards, would continue lasix IV BID for now, discharge on usual regimen and possible consider prn metolazone. * --> Would consider also 60mg PO BID at discharge short term as well with close follow up Monitor daily weights/I&O -- net negative 2.75L since admission Now on room air at rest. 2L with ambulation per 2step. Strongly encouraged use at discharge as already had this at home but not convenient portable tank Discontinued amlodipine given edema and prevention of hypotension leading to worsening renal failure Discussed elevating feet, adhering to low salt diet and avoidance of canned soups ( reported tomato soup one of his favorites, does admit to frozen meals at times) --> Discontinued amlodipine as taking 10mg daily for BP to prevent worsening LE edema and discussed with cards to continue usual metoprolol and lisinopril -- th ey can decrease BB if needed in f/u next week given bradycardia if suspected to be contributing Discussed with cardiology and sent rx for metolazone 2.5mg to use as needed for wt gain >5lb. I did discuss with patient to inquire about possibly switching to torsemide given patient has some gut edema as well to consider if may have improvement It is very strange given prior admissions with similar issues/edema/shortness of breath and giving diuretics, edema goes down, however sometimes weight up. Cr up and then down, no changes and alternates. ? if having cycling cardiorenal type syndrome? Last admission similar issue and was discharged despite weight up but symptoms improved/edema improved and as discussed with Dr Gonzalez patient very sensitive to fluid changes Recommend patient discussing with PCP about referral to Nephrology for additional recommendations/studies as warranted (2) CHF (congestive heart failure): Expect acute exacerbation as above for diastolic HF given preserved EF on prior ECHO Lasix as above, monitoring response. Will need continued f/u at discharge as above Repeat ECHO ordered, unchanged (3) Diabetes: also w/ DM neuropathy -- continues on gabapentin A1c 7.2 in May 2021 Holding home glimepiride, metformin Continue lantus 10u BID Utilize SSI while inpatient, BSGs well controlled and resumed home regimen at discharge (4) GERD (gastroesophageal reflux disease): Chronic, given pepcid x 1 in ER. 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 Blood pressure controlled Continued metoprolol 200mg, Lisinopril temp held given elevation in Cr, resumed given improvement but stable prior to discharge per recs by Cardiology Continue usual lasix at discharge along with metolazone prn for HF/edema as above (7) Rheumatoid arthritis: Chronic Continued Prednisone -- 10mg x 2 days, then back to usual dosing at discharge to prevent adrenal crisis given stress and hypotension during admission -Continued Xeljanz -- brought in (8) Sleep apnea: Patient does not wear CPAP , utilizes NC at home when sleeping due to intolerance of mask --> rec'd f/u pcp to discuss nasal pillows with CPAP if able to tolerate Total Time Total Time Spent Total Time Spent (In Minutes): 40 Discharge Plan Discharge Items Patient Disposition: Home - Self-Care Reason For Visit: ACUTE HYPOXIC RESPIRATORY FAILURE, CHF Discharge Diagnosis: CHF Goals: You have been hospitalized for an acute medical problem. During your stay at [facility], we have made an effort to correct the problem that brought you to the hospital while keeping you as comfortable as possible. Medications were used to bring your condition under control and your discharge instructions will include directions for any medications you should take after leaving the hospital. Please make sure you see your Primary Care Provider as part of your follow up plan. Activity: Resume your previous activity Non-emergency contact: Primary Care Provider and Drying Machine Receiver Call non-emergency contact if: you have any medication questions and your symptoms worsen Follow-up/Referrals: Perico Gonzalez MD [Physician] - 09/06/21 8:30 am (september 06) Robbie Mohr DO [Primary Care Provider] - 09/04/21 12:00 pm Diet: Heart Healthy and Low Sodium (2gm) Fluids: 1500ml (6 cups) Ambulatory Orders: Basic Metabolic Panel (Routine) Timeframe: 3 Days Location: Determined by Patient Ordered By: Gwen Turner Attending Provider Instructions: You have been hospitalized for shortness of breath and found to be in congestive heart failure. You were given IV diuretics to get started and were continued. Your edema and breathing have improved and your diuretics were held this morning due to rise in kidney number, and can resume your diuretics this evening. You are being sent with metolazone 2.5mg to use NEEDED for weight gain over 5 pounds in 3 day period. You should continue to monitor your weights at home and stick to a LOW SODIUM diet. I would AVOID any canned soup products. Dr Gonzalez does want you to continue your lasix 60mg in morning, 40mg in evening. I would recommend further discussing possible switch to torsemide in the future as discussed if diuretics do not work with the metolazone in the future. You also had your AMLODIPINE discontinued as this can contribute to worsening lower extremity edema and can monitor your blood pressures at home and only resume if elevated. Please continue to elevate legs as much as possible and would recommend compression stockings for edema if able to tolerate. You have been tested for needs for oxygen with ambulation and it is recommended to continue to use 2 liters with ambulation. This can further discussed with your primary care about smaller portable unit in the future. You have also been given azithromycin for a "COPD exacerbation" in case, and have been sent 2 additional doses of azithromycin. I have placed order for repeat blood work to ensure kidney function is stable. This can be drawn at any [facility] location in the next 3-4 days. You should follow up with your PCP in the next 7-10 days, and should follow up with cardiology in the office next week. You may want to reconsider using CPAP with nasal pillows to help with your sleep apnea as well. I would also recommend discussing with your primary care provider about obtaining pulmonary function testing and consideration for inhalers if indicated. Please return to the emergency department for any worsening shortness of breath, any chest pain or any other symptoms concerning for you. Take care! Addtl Senior Java Engineer Provider Instructions: Call 911 and go to the Emergency Room if: * You have tightness or pain in your chest that does not go away with rest or Nitroglycerin * You are very short of breath even with rest Call your doctor if any of the following symptoms or problems start or get worse: * Shortness of breath or difficulty breathing * Wake up at night short of breath * Chest pain * Cough * Swelling of your hands, fee, or legs * More fatigued or tired with your normal activity * Palpitations - sudden fast heart beats WEIGHT * Weigh yourself every morning after using the bathroom. * Use the same scale. * Wear the same amount of clothing. * Write your weight down on your chart. * Call your doctor if you gain more than 2-3 pounds in 1-2 days. MEDICATIONS * Use this discharge instruction sheet for instructions. * Take your medications at the time your doctor ordered. * Do not skip a dose of your medicines. * If you miss a dose of medicine, take as soon as possible, but DO NOT DOUBLE A DOSE. * Read your medicine information when you get home. * Know all of the side effects of your medicine. * Call your doctor's office if you have any side effects. * Be sure all of your doctors know what medicine and herbs you take (including cold, flu, and herbal medicine). * Pain Medicine: If you do not get relief from your pain, please call your doctor for help. Take the following with you to your follow-up doctor appointments: * Weight Chart * Medication List * List of questions Do not drink excessive alcohol, beer or wine. Pending Studies at Discharge: No Stand-Alone Forms: [facility], Smoking Cessation Medications and DC Order Prescriptions: New metolazone 2.5 mg tablet 2.5 mg PO .PRN Qty: 7 RF: 0 Continued omeprazole 20 mg capsule,delayed release(DR/EC) 20 mg PO DAILY Qty: 30 RF: 2 Tradjenta 5 mg tablet 5 mg PO DAILY Qty: 30 RF: 11 furosemide 40 mg tablet See Rx Instructions PO DAILY Qty: 90 RF: 3 cholecalciferol (vitamin D3) [Vitamin D3] 25 mcg (1,000 unit) capsule 5,000 unit PO DAILY RF: 0 metoprolol succinate 200 mg tablet extended release 24 hr 200 mg PO DAILY Qty: 90 RF: 3 atorvastatin 10 mg tablet 10 mg PO DAILY Qty: 90 RF: 3 potassium chloride 10 mEq capsule, extended release 10 meq PO DAILY Qty: 90 RF: 3 glimepiride 2 mg tablet 2 mg PO BID Qty: 180 RF: 3 metformin 500 mg tablet 500 mg PO BID Qty: 180 RF: 3 magnesium oxide 400 mg magnesium tablet 400 mg PO TID Qty: 270 RF: 1 Xeljanz XR 11 mg tablet extended release 24 hr 11 mg PO DAILY Qty: 1 RF: 0 gabapentin 300 mg capsule 300 mg PO BID Qty: 180 RF: 3 clotrimazole 1 % Cream 1 applic TOPICAL BID PRN (Reason: FLARE UPS) RF: 0 clobetasol 0.05 % Cream 1 applic TOPICAL BID PRN (Reason: BREAKOUTS) RF: 0 prednisone 5 mg tablet 5 mg PO DAILY RF: 0 Discontinued amlodipine 10 mg tablet 10 mg PO DAILY RF: 0 No Action (DME) OneTouch Verio test strips Strip See Rx Instructions .Route Qty: 100 RF: 5 (DME) lancets [OneTouch Delica Lancets] 33 gauge misc See Dose Instructions .ROUTE .MEDSUPPLY Qty: 100 RF: 5 lisinopril 20 mg tablet 20 mg PO DAILY Qty: 30 RF: 5 Discharge Orders: Discharge Order (Routine); Ordered 08/31/21 Ordered By: Gwen Lloyd/Other Patient Handouts: High Blood Sugar (Hyperglycemia), Hypoglycemia (Low Blood Sugar), Managing Type 2 Diabetes, Diabetes- Measuring Glucose at Home Admission Data Admit Date/Time: 08/28/21 20:45 Attending Provider: Chencho Leal Admit Provider: Leah Hedrick Primary Care Provider: Robbie Mohr. Other Providers: Leah Hedrick ; Burton Thao Other Interventions: Discharge Summary Assessment (RN) Last Done: 08/31/21 13:41 Supervising Physician Co-Signing Physician Notes During face to face encounter, I obtained a physical examination and history of hospital stay with patient. I discussed discharge plan with patient and TITA Fairchild. I reviewed above note and agree with it. Admitted with SOB, responded to diuretics. will resume home regimen at discharge. Coding Level of Care Code D/C DAY MANAGEMENT >30 MINS Diagnoses Acute respiratory failure with hypoxia J96.01 CHF (congestive heart failure) I50.9 Heart failure chronicity: acute Heart failure type: unspecified Diabetes E11.9 GERD (gastroesophageal reflux disease) K21.9 Hyperlipidemia E78.5 Hypertension I10 Hypertension type: unspecified Rheumatoid arthritis M06.9 Rheumatoid arthritis location: unspecified site Rheumatoid factor presence: unspecified presence Sleep apnea G47.30
[2021-09-01] MEDS ORDERED: predniSONE 5 MG TAB PO SCH (09:00)
== END 2021-08-31 14:58 | disposition home or self-care (01) | DRG 291 ==
LOC: ED 17:25 → 3W 20:45 → SUATTDRO 20:45 → 3W 21:45
DX: Z88.5 Allergy status to narcotic agent; I13.0 Hypertensive heart and chronic kidney disease with heart failure and stage 1 through stage 4 chronic kidney disease, or unspecified chronic kidney disease; E78.5 Hyperlipidemia, unspecified; N18.2 Chronic kidney disease, stage 2 (mild); M06.9 Rheumatoid arthritis, unspecified; Z96.653 Presence of artificial knee joint, bilateral; E11.9 Type 2 diabetes mellitus without complications; K21.9 Gastro-esophageal reflux disease without esophagitis; Z68.42 Body mass index [BMI] 45.0-49.9, adult; J44.9 Chronic obstructive pulmonary disease, unspecified; I50.33 Acute on chronic diastolic (congestive) heart failure; Z96.611 Presence of right artificial shoulder joint; J96.01 Acute respiratory failure with hypoxia; Z79.84 Long term (current) use of oral hypoglycemic drugs; E66.2 Morbid (severe) obesity with alveolar hypoventilation; Z79.52 Long term (current) use of systemic steroids

== ENCOUNTER 2022-03-08 15:17 | Inpatient (IN) ==
--- NOTE | 2022-03-08 15:26 | ED Triage Note ---
Date of Service March 08, 2022 History of Present Illness This patient was briefly evaluated while in triage. An abbreviated physical exam was performed. This patient is a 76-year-old Male with past medical history of CHF, cardiomyopathy, DM, COPD, hypertension, who presents to the ED for evaluation of short of breath and "filling up with fluid." History of CHF, on lasix and metolazone. Weight is up 6-7 lbs from baseline. Wears 3L oxygen at home. No chest pain, palpitations, dizziness, fevers. Has been having increased indigestion and diarrhea, taking Imodium for this. Physical Exam CONSTITUTIONAL: No acute distress. Well appearing. RESPIRATORY: Diffuse bibasilar cracckles to about half up, lungs are otherwise clear. No tachypnea or labored breathing. CARDIOVASCULAR: Regular rate and rhythm with no murmurs, rubs or gallops. NEUROLOGIC: Alert and oriented X 4 with normal affect. Initial orders for labs and / or imaging were placed and patient was placed in the waiting area until a bed is available. Please see further documentation for the full ED course. MDM / Impression Impression Impression: CHF (congestive heart failure) : CHF (congestive heart failure) Qualifiers: Heart failure type: unspecified Heart failure chronicity: acute on chronic Qualified Code(s): I50.9 - Heart failure, unspecified
--- NOTE | 2022-03-08 16:05 | XRay Report ---
XR chest 2V PA/lateral CLINICAL HISTORY: Dyspnea. COMPARISON STUDY: Chest radiograph February 28, 2022. FINDINGS: There is no pneumothorax or pleural effusion. Cardiomegaly is unchanged. There is no eviden ce for pulmonary edema. No consolidation is identified. IMPRESSION: No acute cardiopulmonary findings. Cardiomegaly. ACT 112: Negative or not required by law. Electronically signed by: Live Manrique M.D. 03/08/2022 4:03 PM
[2022-03-08 16:30] LABS: Basophils # (auto) 0.03 K/uL (0-0.2); Basophils % (auto) 0.3 %; Eosinophils # (auto) 0.08 K/uL (0-0.50); Eosinophils % (auto) 0.8 %; Hematocrit (blood only) 39.5 % (40.1-51.0); Hemoglobin 11.6 g/dl (14.0-18.0); Immature Granulocytes # (auto) 0.04 K/uL (0.00-0.02); Immature Granulocytes % (auto) 0.4 %; Lymphocytes # (auto) 1.05 K/uL (1.2-3.4); Lymphocytes % (auto) 10.2 %; Mean Corpuscular Hemoglobin 26.1 pg (25.0-34.0); Mean Corpuscular Hgb Conc 29.4 g/dL (32.0-36.0); Mean Corpuscular Volume 88.8 fL (80.0-100.0); Mean Platelet Volume 9.8 fL (9.4-12.4); Monocytes # (auto) 0.84 K/uL (0.24-0.82); Monocytes % (auto) 8.2 %; Neutrophils # (auto) 8.22 K/uL (1.4-6.5); Neutrophils % (auto) 80.1 %; Platelet Count 289 K/uL (130-400); RDW Coefficient of Variation 17.4 % (11.5-14.5); RDW Standard Deviation 55.8 fL (36.4-46.3); Red Blood Count 4.45 M/uL (4.63-6.08); White Blood Count 10.26 K/ul (4.8-10.8)
[2022-03-08 16:46] LABS: Partial Thromboplastin Ratio 0.9; Partial Thromboplastin Time 25.3 Seconds (21.0-31.0); Prothrombin Time 10.5 Seconds (9.0-12.0)
[2022-03-08 16:50] LABS: Alanine Aminotransferase 70 U/L (7-52); Albumin Globulin Ratio 1.1 (0.9-2); Albumin Level 4.1 gm/dl (3.4-5.0); Alkaline Phosphatase 39 U/L (34-104); Anion Gap 3 (3-11); Aspartate Aminotransferase 67 U/L (13-39); Bilirubin,Total 0.5 mg/dl (0.2-1.0); Blood Urea Nitrogen 38 mg/dl (6-23); Calcium 9.3 mg/dl (8.5-10.1); Carbon Dioxide 37 mmol/L (21-32); Chloride 98 mmol/L (98-107); Est GFR (African American) 54.9 ml/min; Est GFR (Non-African American) 47.4 ml/min; Globulin 3.7 gm/dl (2.5-4.0); Glucose 83 mg/dl (70-99(Fasting)); Potassium 4.9 mmol/L (3.5-5.1); Sodium 138 mmol/L (136-145); Total Protein 7.8 gm/dl (6.0-8.3)
[2022-03-08 18:00] LABS: Troponin I High Sensitivity 18.8 pg/ml (0-20)
--- NOTE | 2022-03-08 18:42 | Emergency Department Note ---
History of Present Illness General Chief Complaint: Shortness of Breath/Dyspnea Stated Complaint: SHORTNES OF BREATH Time Seen by Provider: 03/08/22 17:03 History of Present Illness Provider Complaint: shortness of breath Onset (ago): week(s) (1) Severity: moderate Consistency/Duration: + progressively worsening Relieved By: + oxygen and + upright position Exacerbated By: + lying flat, + exertion and + coughing Context: no recent illness, no choking/aspiration, no recent travel, no smoke/fume exposure or no trauma/injury Known history of: congestive heart failure Associated symptoms: no chest pain, no pain with inspiration, no fever, no cough, no wheezing, no sputum production, no lower extremity pain, no polyuria, no polydipsia, no paresthesias, no palpitations, no diaphoresis, no abdominal pain or no chest congestion HPI Narrative: Patient states he saw Dr. Vásquez in the office last week. Patient reports he is gained 7 pounds in the last week. He states that Dr. Bowers states if his was unable to stop the weight gain and was not feeling better to be admitted from the emergency department to the inpatient service for IV diuresis. Related Data Home oxygen amount: 3 liters Home Medications Medication Instructions Recorded Confirmed Type magnesium oxide 400 mg PO TID #270 tabs 03/03/20 03/05/22 Rx cholecalciferol (vitamin D3) 25 5,000 unit PO QAM 11/04/20 03/05/22 History mcg (1,000 unit) capsule (Vitamin D3) prednisone 5 mg tablet 5 mg PO HS 12/28/20 03/05/22 History gabapentin 300 mg capsule 300 mg PO BID #180 caps 03/13/21 03/05/22 Rx glimepiride 2 mg tablet 2 mg PO BID #180 tabs 06/29/21 03/05/22 Rx metformin 500 mg tablet 500 mg PO BID #180 tabs 08/16/21 03/05/22 Rx metolazone 2.5 mg tablet 2.5 mg PO .PRN weight gain or 08/31/21 03/05/22 Rx edema #7 tabs blood sugar diagnostic (OneTouch #100 ea 09/01/21 03/05/22 Rx Verio test strips) lancets 33 gauge (OneTouch Delica #100 ea 09/01/21 03/05/22 Rx Lancets) furosemide 40 mg tablet See Rx Instructions PO .COMPLEX 09/06/21 03/05/22 Rx #120 tabs atorvastatin 10 mg tablet 10 mg PO QAM 09/11/21 03/05/22 History lisinopril 20 mg tablet 20 mg PO QAM 09/11/21 03/05/22 History metoprolol succinate 200 mg 200 mg PO QAM 09/11/21 03/05/22 History tablet,extended release 24 hr omeprazole 20 mg capsule,delayed 20 mg PO QAM 09/11/21 03/05/22 History release potassium chloride 10 mEq 10 meq PO QAM 09/11/21 03/05/22 History capsule,extended release tofacitinib 11 mg tablet,extended 11 mg PO QAM 09/11/21 03/05/22 History release 24 hr (Xeljanz XR) cnjwlbcgxzdr-[id number]-hkddvp tablet 1 tab PO DAILY 09/14/21 03/05/22 History tramadol 50 mg tablet (Ultram) 50 - 100 mg PO Q4H PRN pain #10 09/14/21 03/05/22 Rx tabs linagliptin 5 mg tablet (Tradjenta) 5 mg PO QAM #30 tabs 10/16/21 03/05/22 Rx empagliflozin 10 mg tablet 10 mg PO DAILY #30 tabs 01/11/22 03/05/22 Rx (Jardiance) ipratropium 20 mcg-albuterol 100 1 puff inhalation Q6H 03/01/22 03/05/22 History mcg/actuation mist for inhalation (Combivent Respimat) Portable Oxygen #1 ea 03/05/22 03/05/22 Rx Portable Oxygen #1 ea 03/06/22 Rx Allergies Allergy/AdvReac Type Severity Reaction Status Date / Time codeine Allergy Intermediate HIVES (PT Verified 03/05/22 11:46 DOES NOT USE PERCOCET) Past Med/Surg History Medical History Acute diarrhea Acute hypoxemic respiratory failure Treated inpatient [facility] 08/28-08/31/21 Acute kidney injury Acute sinusitis CHF (congestive heart failure) Chronic anemia hgb stable in the ' Chronic kidney disease, stage 3a CKD (chronic kidney disease) COPD (chronic obstructive pulmonary disease) Per remote records, pt/family denies Diabetes NIDDM GERD (gastroesophageal reflux disease) Hyperlipidemia Hypertension Hypomagnesemia MGUS (monoclonal gammopathy of unknown significance) Per records Morbid obesity On home oxygen therapy 2lpm HS + PRN (with walking/exertion during the day) Peripheral neuropathy Psoriatic arthritis Rheumatoid arthritis SCC (squamous cell carcinoma) Sleep apnea Non compliant with CPAP but does use 2lpm HS Stage 2 chronic kidney disease Surgical History H/O arthroscopy of shoulder Right shoulder H/O excision of mass (09/14/21) Excision Soft Tissue Mass Left Thigh Dr. Maurice History of bilateral knee replacement History of colonoscopy History of surgical removal of skin lesion Hx of appendectomy Hx of cholecystectomy Hx of hernia repair right inguinal hernia repair S/P right knee surgery multiple reconstructive knee surgeries - work related accident in 1996. Family History Father Myocardial infarction Heart disease Mother Cancer Non-Hodgkins lymphoma Sister Ovarian cancer Brother Lung cancer Grandfather Diabetes Other Family history non-contributory Denies family history of Prostate cancer Breast cancer Colorectal cancer Social History Smoking Status: Never smoker Second Hand Exposure: No; Hx Alcohol Use: No Hx Substance Use: No Preferred Language: Surinamese Communication Ability: Effective Wing Coverer Required: No Beliefs That Will Affect Care: None marital status: Current Living Situation: Spouse current occupational status: retired How many Children do You have: 3 Feels Safe at Home: Yes Childhood Exposure to Second-Hand Smoke: No caffeine: Yes during the past year weight has: remained stable Dental Care, Regularly: Yes Physical Activity Frequency: Daily Seatbelt Use: sometimes Sunscreen Use: No Assistive Devices: Cane, Denture - Upper, Denture - Lower, Glasses and Oxygen - at Night Review of Systems A total of 10 systems reviewed and were otherwise negative Physical Exam Vital Signs: Vital Signs - 24 hr 03/08/22 15:20 03/08/22 15:20 03/08/22 17:28 Temperature 37.0 C Temperature Source Temporal Artery Sc an Pulse Rate 57 L 54 L Pulse Rate from Sp O2 Sensor 54 L Respiratory Rate 20 12 Respiratory Effort / Characteristics Non-Labored Respiratory Depth Normal Blood Pressure 124/51 L Blood Pressure Kayce n 75 Pulse Oximetry 80 L 90 95 Oxygen Delivery Me thod Room Air Nasal Cannula Oxygen Flow Rate 3 Sepsis Recent Feve r Within 48 Hours No Sepsis New/Unexpla ined Change in Men alberto Status No Sepsis Action Take n by Nursing No Action Required 03/08/22 17:30 03/08/22 17:30 03/08/22 18:00 Temperature Temperature Source Pulse Rate 53 L Pulse Rate from Sp O2 Sensor 53 L Respiratory Rate 17 Respiratory Effort / Characteristics Respiratory Depth Blood Pressure 136/70 143/74 H Blood Pressure Kayce n 92 97 Pulse Oximetry 95 Oxygen Delivery Me thod Oxygen Flow Rate Sepsis Recent Feve r Within 48 Hours Sepsis New/Unexpla ined Change in Men alberto Status Sepsis Action Take n by Nursing 03/08/22 18:00 03/08/22 18:20 03/08/22 18:20 Temperature Temperature Source Pulse Rate 55 L Pulse Rate from Sp O2 Sensor 56 L 63 Respiratory Rate 12 Respiratory Effort / Characteristics Respiratory Depth Blood Pressure 158/85 H Blood Pressure Kayce n 109 Pulse Oximetry 96 92 Oxygen Delivery Me thod Oxygen Flow Rate Sepsis Recent Feve r Within 48 Hours Sepsis New/Unexpla ined Change in Men alberto Status Sepsis Action Take n by Nursing Physical Exam: Physical Exam GENERAL: He is oriented to person, place, and time. He appears well-developed and well-nourished. He does not appear distressed. HENT: Exam performed. - Head: Normocephalic and atraumatic. - Right Ear: External ear normal. No mastoid tenderness. - Left Ear: External ear normal. No mastoid tenderness. - Mouth/Throat: The oropharynx is clear and moist. No trismus in the jaw. No dental abscesses or uvula swelling. No oropharyngeal exudate or tonsillar abscesses. EYES: Conjunctivae and EOM are normal. Pupils are equal, round, and reactive to light. Right eye exhibits no discharge. Left eye exhibits no discharge. No scleral icterus. NECK: Normal range of motion. Neck supple. No JVD present. No spinous process tenderness present. No carotid bruit present. No rigidity. No tracheal deviation and normal range of motion present. No Brudzinski's sign and no Kernig's sign noted. CV: Normal rate, regular rhythm, normal heart sounds and intact distal pulses. Bilateral lower extremeties 2+ pitting edema. Palpable radial pulses bue. PULM/CHEST: Effort normal and breath sounds normal. No respiratory distress. No stridor. He has no wheezes. He has no rales. - Chest Wall: He exhibits no tenderness. ABD: The abdomen is soft obese. Bowel sounds are normal. He has no distension. No mass is present. There is no tenderness. There is no rebound, no guarding, no Watt's sign and no tenderness at McBurney's point. Rovsig negative. MUSC/SKEL: Normal range of motion. There is no tenderness or deformity. Bilateral lower extremeties 2+ pitting edema. LYMPH: No cervical adenopathy. NEURO: He is alert and oriented to person, place, and time. He has normal strength. No cranial nerve deficit or sensory deficit. Coordination and gait normal. GCS eye subscore is 4. GCS verbal subscore is 5. GCS motor subscore is 6. Cerebellar tests wnl. SKIN: Skin is warm and dry. He is not diaphoretic. PSYCH: He has a normal mood and affect. Behavior is normal. Judgment and thought content normal. Course Course [id number]: The patient was evaluated in room C9. A complete history and physical exam was performed Cardiac monitoring: An order was placed for continuous cardiac monitoring. The monitor shows a rate of 50 with sinus rhythm 1814: Vital signs stable on home 3 L oxygen. Chest x-ray shows cardiomegaly. Troponin normal. BNP 255. AST 67 ALT 70 mild increase from 1 week ago when the AST was 50 and ALT was 55. Discussed with the patient. Patient states he like to be admitted for IV diuresis. Discussed case with [facility] hospitalist Dr. Redd he will evaluate the patient to determine what type of diuretic the patient should use as he was recently increase in his furosemide to 60 mg twice daily as well as metolazone 2.5 mg daily. Medical Decision Making Laboratory Data Result diagrams: 03/08/22 16:16 03/08/22 16:16 Lab Results 03/08/22 03/08/22 03/08/22 Range/Units 16:16 16:16 16:16 WBC 10.26 (4.8-10.8) K/ul RBC 4.45 L (4.63-6.08) M/uL Hgb 11.6 L (14.0-18.0) g/dl Hct 39.5 L (40.1-51.0) % MCV 88.8 (80.0-100.0) fL MCH 26.1 (25.0-34.0) pg MCHC 29.4 L (32.0-36.0) g/dL RDW Std Deviation 55.8 H (36.4-46.3) fL RDW Coeff of Tony 17.4 H (11.5-14.5) % Plt Count 289 (130-400) K/uL MPV 9.8 (9.4-12.4) fL Immature Gran % (Auto) 0.4 % Neut % (Auto) 80.1 % Lymph % (Auto) 10.2 % Dane % (Auto) 8.2 % Eos % (Auto) 0.8 % Baso % (Auto) 0.3 % Neut # (Auto) 8.22 H (1.4-6.5) K/uL Lymph # (Auto) 1.05 L (1.2-3.4) K/uL Dane # (Auto) 0.84 H (0.24-0.82) K/uL Eos # (Auto) 0.08 (0-0.50) K/uL Baso # (Auto) 0.03 (0-0.2) K/uL Immature Gran # (Auto) 0.04 H (0.00-0.02) K/uL PT 10.5 (9.0-12.0) Seconds INR 1.0 (0.9-1.1) APTT 25.3 (21.0-31.0) Seconds PTT Ratio 0.9 Sodium 138 (136-145) mmol/L Potassium 4.9 (3.5-5.1) mmol/L Chloride 98 (98-107) mmol/L Carbon Dioxide 37 H (21-32) mmol/L Anion Gap 3 (3-11) BUN 38 H (6-23) mg/dl Creatinine 1.41 H (0.6-1.4) mg/dl Est Cr Clr Drug Dosing Not Reportable Est GFR ( Amer) 54.9 ml/min Est GFR (Non-Af Amer) 47.4 ml/min BUN/Creatinine Ratio 27.0 H (10-20) Glucose 83 (70-99(Fasting)) mg/dl Calcium 9.3 (8.5-10.1) mg/dl Total Bilirubin 0.5 (0.2-1.0) mg/dl AST 67 H (13-39) U/L ALT 70 H (7-52) U/L Alkaline Phosphatase 39 (34-104) U/L Troponin I High Sens 18.8 D (0-20) pg/ml B-Natriuretic Peptide (0-100) pg/ml Total Protein 7.8 (6.0-8.3) gm/dl Albumin 4.1 (3.4-5.0) gm/dl Globulin 3.7 (2.5-4.0) gm/dl Albumin/Globulin Ratio 1.1 (0.9-2) 03/08/22 Range/Units 16:16 WBC (4.8-10.8) K/ul RBC (4.63-6.08) M/uL Hgb (14.0-18.0) g/dl Hct (40.1-51.0) % MCV (80.0-100.0) fL MCH (25.0-34.0) pg MCHC (32.0-36.0) g/dL RDW Std Deviation (36.4-46.3) fL RDW Coeff of Tony (11.5-14.5) % Plt Count (130-400) K/uL MPV (9.4-12.4) fL Immature Gran % (Auto) % Neut % (Auto) % Lymph % (Auto) % Dane % (Auto) % Eos % (Auto) % Baso % (Auto) % Neut # (Auto) (1.4-6.5) K/uL Lymph # (Auto) (1.2-3.4) K/uL Dane # (Auto) (0.24-0.82) K/uL Eos # (Auto) (0-0.50) K/uL Baso # (Auto) (0-0.2) K/uL Immature Gran # (Auto) (0.00-0.02) K/uL PT (9.0-12.0) Seconds INR (0.9-1.1) APTT (21.0-31.0) Seconds PTT Ratio Sodium (136-145) mmol/L Potassium (3.5-5.1) mmol/L Chloride (98-107) mmol/L Carbon Dioxide (21-32) mmol/L Anion Gap (3-11) BUN (6-23) mg/dl Creatinine (0.6-1.4) mg/dl Est Cr Clr Drug Dosing Est GFR ( Amer) ml/min Est GFR (Non-Af Amer) ml/min BUN/Creatinine Ratio (10-20) Glucose (70-99(Fasting)) mg/dl Calcium (8.5-10.1) mg/dl Total Bilirubin (0.2-1.0) mg/dl AST (13-39) U/L ALT (7-52) U/L Alkaline Phosphatase (34-104) U/L Troponin I High Sens (0-20) pg/ml B-Natriuretic Peptide 255 H (0-100) pg/ml Total Protein (6.0-8.3) gm/dl Albumin (3.4-5.0) gm/dl Globulin (2.5-4.0) gm/dl Albumin/Globulin Ratio (0.9-2) Imaging Data Radiologist's Impression: Chest X-Ray 03/08/22 15:26 XR chest 2V PA/lateral CLINICAL HISTORY: Dyspnea. COMPARISON STUDY: Chest radiograph February 28, 2022. FINDINGS: There is no pneumothorax or pleural effusion. Cardiomegaly is unchanged. There is no evidence for pulmonary edema. No consolidation is identified. IMPRESSION: No acute cardiopulmonary findings. Cardiomegaly. ACT 112: Negative or not required by law. Electronically signed by: Live Manrique M.D. 03/08/2022 4:03 PM ECG Data Interpretation: Sinus rhythm with rate of 54. [place] 238 QRS [address] elevation or ST depression. MDM Narrative Vital signs stable on home 3 L oxygen. Chest x-ray shows cardiomegaly. Troponin normal. BNP 255. AST 67 ALT 70 mild increase from 1 week ago when the AST was 50 and ALT was 55. Discussed with the patient. Patient states he like to be admitted for IV diuresis. Discussed case with [facility] hospitalist Dr. Redd he will evaluate the patient to determine what type of diuretic the patient should use as he was recently increase in his furosemide to 60 mg twice daily as well as metolazone 2.5 mg daily. Impression & Plan CHF (congestive heart failure) Discharge Plan Visit Data Chief Complaint: Shortness of Breath/Dyspnea Stated Complaint: SHORTNES OF BREATH ED Provider: Vivek Torres Discharge Problem: CHF (congestive heart failure) Patient Disposition: Being Evaluated by Hospitalist Forms Stand Alone Forms: My [facility] [employer]izer Prescriptions Prescriptions: No Action cholecalciferol (vitamin D3) [Vitamin D3] 25 mcg (1,000 unit) capsule 5,000 unit PO QAM glimepiride 2 mg tablet 2 mg PO BID Qty: 180 3RF metformin 500 mg tablet 500 mg PO BID Qty: 180 3RF Rx Instructions: Administer with food (DME) OneTouch Verio test strips Strip See Rx Instructions .Route Qty: 100 5RF Rx Instructions: check glucose daily dx code : e11.22 (DME) lancets [OneTouch Delica Lancets] 33 gauge misc See Dose Instructions .ROUTE .MEDSUPPLY Qty: 100 5RF Dose Instruction: As directed Rx Instructions: Use to check glucose daily DX CODE: E11.22 Tradjenta 5 mg tablet 5 mg PO QAM Qty: 30 11RF (DME) Portable Oxygen Misc See Rx Instructions .Route Qty: 1 11RF Rx Instructions: As directed Jardiance 10 mg tablet 10 mg PO DAILY Qty: 30 5RF furosemide 40 mg tablet See Rx Instructions PO .COMPLEX Qty: 120 11RF Rx Instructions: 60 mg in morning and 40 mg in afternoon PO; Combivent Respimat 20-100 mcg/actuation mist 1 puff inhalation Q6H (DME) Portable Oxygen Misc See Rx Instructions .Route Qty: 1 0RF Rx Instructions: As directed magnesium oxide 400 mg magnesium tablet 400 mg PO TID Qty: 270 1RF gabapentin 300 mg capsule 300 mg PO BID Qty: 180 3RF prednisone 5 mg tablet 5 mg PO HS potassium chloride 10 mEq capsule, extended release 10 meq PO QAM atorvastatin 10 mg tablet 10 mg PO QAM metoprolol succinate 200 mg tablet extended release 24 hr 200 mg PO QAM lisinopril 20 mg tablet 20 mg PO QAM omeprazole 20 mg capsule,delayed release(DR/EC) 20 mg PO QAM Xeljanz XR 11 mg tablet extended release 24 hr 11 mg PO QAM [id number] Tablet 1 tab PO DAILY tramadol [Ultram] 50 mg tablet 50 - 100 mg PO Q4H PRN (Reason: pain) Qty: 10 0RF metolazone 2.5 mg tablet 2.5 mg PO .PRN Qty: 7 0RF Hold Instructions: Home Medication placed on hold at Doctor's office Rx Instructions: for weight gain greater than 5 pounds in 3 days Referrals Referrals: Robbie Mohr DO [Primary Care Provider] -
[2022-03-08 18:44] LABS: Appearance Urine Clear (Clear); Bacteria Urine Automated Negative (Negative); Bilirubin Urine Negative (Negative); Blood Urine Negative (Negative); Color Urine Yellow; Glucose Urine UA 1+ (Negative); Ketones Urine Negative (Negative); Leukocyte Esterase Urine Trace (Negative); Nitrite Urine Negative (Negative); Protein Urine Negative (Negative); RBC Urine Automated 0-4 /hpf (0-4); Specific Gravity Urine 1.016 (1.000-1.030); Urobilinogen Urine Negative (Negative); pH Urine 5.5 (4.5-7.5)
[2022-03-08] MEDS ORDERED: FUROSEMIDE 40 MG/4 ML VIAL IV STA (19:00)
--- NOTE | 2022-03-08 19:07 | History & Physical Report ---
Date of Service March 08, 2022 Assessment & Plan (1) Acute respiratory failure with hypoxia: Plan: Refusing CPAP/BiPAP due to inability to tolerate - known LIDYA Suspect related to CHF however given improved CXR and still needing 4LPM O2 will get CT for PE to assess for alternative causes. ?obesity hypoventilation contributing towards restrictive lung disease See treatment for CHF below (2) Acute on chronic heart failure with preserved ejection fraction: Plan: BNP 255 from 159. However CXR appears improved from prior. Also improved Cr with recent diuresis. Will switch Lasix to 40mg IV BID and continue metolazone 2.5mg PO daily Fluid restrict 1500ml, Low Na diet I&Os, daily weight (3) COPD (chronic obstructive pulmonary disease): Plan: No prior PFTs, I am unclear on the validity of this diagnosis as he is not on maintenance inhalers Minimal improvement with his shortness of breath with Combivent Good air entry without wheezing makes this diagnosis less likely (4) GERD (gastroesophageal reflux disease): Plan: Switch omeprazole to pantoprazole per hospital formulary (5) Diabetes: Plan: HbA1C 7.5 in October, will repeat with AM labs Can continue linagliptin and Jardiance if he were to bring these in. Consult pharmacy glycemic control for insulin management instead of glimepiride and metformin (6) Hyperlipidemia: Plan: Continue atorvastatin 10mg PO QAM (7) Rheumatoid arthritis: Plan: Continue prednisone 5mg PO HS and Xeljanz 11mg PO QAM (8) Sleep apnea: Plan: Intolerent to CPAP (9) Hypertension: Plan: Continue lisinopril and metoprolol succinate Plan VTE Prophylaxis - heparin 7500 units Q8H Diet - low Na, heart healthy, T2DM, fluid restricted Disposition admit to med/tele Admission and Anticipated Discharge Date Admission Date: March 09, 2022 History of Present Illness Chief Complaint: Shortness of breath Primary Care Provider: Robbie Mohr DO Sarwat Campbell is a 76 year old male who presents to the ER with shortness of breath and weight gain. He was hospitalized for congestive heart failure in August and feels similar to this occasion. He was recently seen in the emergency room on March 01 with the same symptoms and was given Lasix 40mg IV and advised to follow up with cardiology. His shortness of breath and weight gain was getting worse for around 2 weeks leading up to this ER visit. He is currently taking Lasix 60mg PO in the morning and 40mg PO in the afternoon. He has taken his metolazone 4 times since the visit. His who provides most of the history reports his weight has fluctuated and not consistently been going down. They deny any change in diet or increased fluids. He reports orthopnea but no paroxysmal nocturnal dyspnea. Increased leg swelling. No claudication. Due to feeling like he breathing was getting worse today he was advised to go to the ER. Of note he is now wearing oxygen 3LPM O2 31/12 however this is only recent with this current shortness of breath. After his last CHF visit in August they report he was able to wean off oxygen at rest and was only using it as needed up until this recent ER exacerbation. He denies any chest pain. Allergies Allergy/AdvReac Type Severity Reaction Status Date / Time codeine Allergy Intermediate HIVES (PT Verified 03/05/22 11:46 DOES NOT USE PERCOCET) Home Medications Medication Instructions Recorded Confirmed Type magnesium oxide 400 mg PO TID #270 tabs 03/03/20 03/08/22 Rx cholecalciferol (vitamin D3) 25 5,000 unit PO QAM 11/04/20 03/08/22 History mcg (1,000 unit) capsule (Vitamin D3) prednisone 5 mg tablet 5 mg PO HS 12/28/20 03/08/22 History gabapentin 300 mg capsule 300 mg PO BID #180 caps 03/13/21 03/08/22 Rx glimepiride 2 mg tablet 2 mg PO BID #180 tabs 06/29/21 03/08/22 Rx metformin 500 mg tablet 500 mg PO BID #180 tabs 08/16/21 03/08/22 Rx metolazone 2.5 mg tablet 2.5 mg PO .PRN weight gain or 08/31/21 03/08/22 Rx edema #7 tabs blood sugar diagnostic (OneTouch #100 ea 09/01/21 03/05/22 Rx Verio test strips) lancets 33 gauge (OneTouch Delica #100 ea 09/01/21 03/05/22 Rx Lancets) furosemide 40 mg tablet See Rx Instructions PO .COMPLEX 09/06/21 03/08/22 Rx #120 tabs atorvastatin 10 mg tablet 10 mg PO QAM 09/11/21 03/08/22 History lisinopril 20 mg tablet 20 mg PO QAM 09/11/21 03/08/22 History metoprolol succinate 200 mg 200 mg PO QAM 09/11/21 03/08/22 History tablet,extended release 24 hr omeprazole 20 mg capsule,delayed 20 mg PO QAM 09/11/21 03/08/22 History release potassium chloride 10 mEq 10 meq PO QAM 09/11/21 03/08/22 History capsule,extended release tofacitinib 11 mg tablet,extended 11 mg PO QAM 09/11/21 03/08/22 History release 24 hr (Xeljanz XR) wgliifrikpuv-vcdypjmn-pdenjq tablet 1 tab PO DAILY 09/14/21 03/08/22 History tramadol 50 mg tablet (Ultram) 50 - 100 mg PO Q4H PRN pain #10 09/14/21 03/08/22 Rx tabs linagliptin 5 mg tablet (Tradjenta) 5 mg PO QAM #30 tabs 10/16/21 03/08/22 Rx empagliflozin 10 mg tablet 10 mg PO DAILY #30 tabs 01/11/22 03/08/22 Rx (Jardiance) ipratropium 20 mcg-albuterol 100 1 puff inhalation Q6H 03/01/22 03/08/22 History mcg/actuation mist for inhalation (Combivent Respimat) Portable Oxygen #1 ea 03/05/22 03/05/22 Rx Portable Oxygen #1 ea 03/06/22 Rx Past Med/Surg History Medical History Acute diarrhea Acute hypoxemic respiratory failure Treated inpatient [facility] 08/28-08/31/21 Acute kidney injury Acute sinusitis CHF (congestive heart failure) Chronic anemia hgb stable in the ' Chronic kidney disease, stage 3a CKD (chronic kidney disease) COPD (chronic obstructive pulmonary disease) Per remote records, pt/family denies Diabetes NIDDM GERD (gastroesophageal reflux disease) Hyperlipidemia Hypertension Hypomagnesemia MGUS (monoclonal gammopathy of unknown significance) Per records Morbid obesity On home oxygen therapy 2lpm HS + PRN (with walking/exertion during the day) Peripheral neuropathy Psoriatic arthritis Rheumatoid arthritis SCC (squamous cell carcinoma) Sleep apnea Non compliant with CPAP but does use 2lpm HS Stage 2 chronic kidney disease Surgical History H/O arthroscopy of shoulder Right shoulder H/O excision of mass (09/14/21) Excision Soft Tissue Mass Left Thigh Dr. Maurice History of bilateral knee replacement History of colonoscopy History of surgical removal of skin lesion Hx of appendectomy Hx of cholecystectomy Hx of hernia repair right inguinal hernia repair S/P right knee surgery multiple reconstructive knee surgeries - work related accident in 1996. Family History Father Myocardial infarction Heart disease Mother Cancer Non-Hodgkins lymphoma Sister Ovarian cancer Brother Lung cancer Grandfather Diabetes Other Family history non-contributory Denies family history of Prostate cancer Breast cancer Colorectal cancer Social History Smoking Status: Never smoker Second Hand Exposure: No; Hx Alcohol Use: No Hx Substance Use: No Preferred Language: Tajik Communication Ability: Effective Wax Pattern Coater Required: No Beliefs That Will Affect Care: None marital status: Current Living Situation: Spouse current occupational status: retired How many Children do You have: 3 Other Information That Helps Us Care for You: No Feels Safe at Home: Yes Childhood Exposure to Second-Hand Smoke: No caffeine: Yes during the past year weight has: remained stable Dental Care, Regularly: Yes Physical Activity Frequency: Daily Seatbelt Use: sometimes Sunscreen Use: No Assistive Devices: Cane, Denture - Upper, Denture - Lower, Glasses and Oxygen - at Night Review of Systems Review of Systems: All systems reviewed & are unremarkable except as noted in HPI & below Physical Exam Constitutional: WD/WN, vitals as above + morbidly obese Eyes: + anicteric sclerae; normal pupil size ENMT: external ear and nose normal, oropharynx normal Neck: trachea midline, no thyromegaly + short neck and + thick neck Respiratory: + respiratory distress, + retractions and + uses accessory muscles; expiratory phase not prolonged Auscultation: + crackles (bibasal); breath sounds present, no diminished lung sounds and no wheezes Cardiovascular: Rate/Rhythm: regular rate and regular rhythm Heart Sounds: no murmur Extremities: normal capillary refill and + pedal edema (2+ bilateral equal pre-tibial pitting); no calf tenderness Gastrointestinal (Abdomen): normal bowel sounds, soft, nontender, no hepatosplenomegaly Musculoskeletal: no cyanosis or clubbing, extremities motor strength 5/5 Skin: no rashes, warm and dry Neurologic: moves all extremities and awake; not confused Psychiatric: A+Ox3, euthymic affect Results & Data Results & Data ([facility]) Vital Signs (Past 12 Hours) Vital Signs Temp Pulse Resp BP Pulse Ox O2 Del Method O2 Flow Rate 03/08/22 18:20 158/85 H 03/08/22 18:20 92 03/08/22 18:00 55 L 12 96 03/08/22 18:00 143/74 H 03/08/22 17:30 53 L 17 95 03/08/22 17:30 136/70 03/08/22 17:28 54 L 12 95 03/08/22 15:20 90 Nasal Cannula 3 03/08/22 15:20 37.0 C 57 L 20 124/51 L 80 L Room Air Laboratory Results Abnormal lab results 03/08/22 03/08/22 03/08/22 Range/Units 16:16 16:16 16:16 RBC 4.45 L (4.63-6.08) M/uL Hgb 11.6 L (14.0-18.0) g/dl Hct 39.5 L (40.1-51.0) % MCHC 29.4 L (32.0-36.0) g/dL RDW Std Deviation 55.8 H (36.4-46.3) fL RDW Coeff of Tony 17.4 H (11.5-14.5) % Neut # (Auto) 8.22 H (1.4-6.5) K/uL Lymph # (Auto) 1.05 L (1.2-3.4) K/uL [place]itt # (Auto) 0.84 H (0.24-0.82) K/uL Immature Gran # (Auto) 0.04 H (0.00-0.02) K/uL Carbon Dioxide 37 H (21-32) mmol/L BUN 38 H (6-23) mg/dl Creatinine 1.41 H (0.6-1.4) mg/dl BUN/Creatinine Ratio 27.0 H (10-20) AST 67 H (13-39) U/L ALT 70 H (7-52) U/L B-Natriuretic Peptide 255 H (0-100) pg/ml Urine Glucose (UA) (Negative) Ur Leukocyte Esterase (Negative) U Epithel Cells (Auto) (0-5) /lpf 03/08/22 Range/Units 18:27 RBC (4.63-6.08) M/uL Hgb (14.0-18.0) g/dl Hct (40.1-51.0) % MCHC (32.0-36.0) g/dL RDW Std Deviation (36.4-46.3) fL RDW Coeff of Tony (11.5-14.5) % Neut # (Auto) (1.4-6.5) K/uL Lymph # (Auto) (1.2-3.4) K/uL [place]itt # (Auto) (0.24-0.82) K/uL Immature Gran # (Auto) (0.00-0.02) K/uL Carbon Dioxide (21-32) mmol/L BUN (6-23) mg/dl Creatinine (0.6-1.4) mg/dl BUN/Creatinine Ratio (10-20) AST (13-39) U/L ALT (7-52) U/L B-Natriuretic Peptide (0-100) pg/ml Urine Glucose (UA) 1+ H (Negative) Ur Leukocyte Esterase Trace H (Negative) U Epithel Cells (Auto) 5-10 H (0-5) /lpf Diagnostic Findings XR chest 2V PA/lateral CLINICAL HISTORY: Dyspnea. COMPARISON STUDY: Chest radiograph February 28, 2022. FINDINGS: There is no pneumothorax or pleural effusion. Cardiomegaly is unchanged. There is no evidence for pulmonary edema. No consolidation is identified. IMPRESSION: No acute cardiopulmonary findings. Cardiomegaly. Medications Administered ER Medications Given: None ECG Indication: SOB/dyspnea Rate (beats per minute): 54 Rhythm: sinus bradycardia Findings: + other (low voltage QRS); no acute ischemic change Comparison ECG Date: from (February 28, 2022) Change: no significant change Code Status & VTE Plan Code Status DNR/DNI VTE Prophylaxis Plan VTE Prophylaxis will be ordered: Yes PG Care Time/CCT Total # of Minutes Spent Total Time Spent with Patient: Total time spent is greater than 50% in coordination of care (as documented) at patient's floor/unit and/or counseling patient: Coding Level of Care Code 03154 Initial In Care Lvl 3 Diagnoses Acute respiratory failure with hypoxia J96.01 Acute on chronic heart failure with preserved ejection fraction I50.33 COPD (chronic obstructive pulmonary disease) J44.9 GERD (gastroesophageal reflux disease) K21.9 Diabetes E11.9 Hyperlipidemia E78.5 Rheumatoid arthritis M06.9 Rheumatoid arthritis location: unspecified site Rheumatoid factor presence: unspecified presence Sleep apnea G47.30 Hypertension I10 Hypertension type: unspecified (1) Rheumatoid arthritis Rheumatoid arthritis location: unspecified site Rheumatoid factor presence: unspecified presence Qualified Code(s): M06.9 - Rheumatoid arthritis, unspecified (2) Hypertension Hypertension type: unspecified Qualified Code(s): I10 - Essential (primary) hypertension
[2022-03-08 19:19] LABS: Influenza A virus by PCR Negative (Neg); Influenza B virus by PCR Negative (Neg); RSV by PCR Negative (Neg); SARS CoV2 RNA(COVID-19) InHosp NEGATIVE (Negative)
[2022-03-08] MEDS ORDERED: OPTIRAY 300 500mL IV ONE (20:25)
--- NOTE | 2022-03-08 21:49 | CT Scan Report ---
CT ANGIOGRAPHY OF THE CHEST, PULMONARY EMBOLUS PROTOCOL CLINICAL HISTORY: Shortness of breath. Evaluate for pulmonary embolus. COMPARISON STUDY: Chest radiograph February 28, 2022 and March 08, 2022. Chest CT March 31. TECHNIQUE: Following IV administration of 112 mL of Optiray, helical axial images of the chest were o btained utilizing the pulmonary embolus protocol. Maximal intensity projections and sagittal and cor onal reformats were viewed on an independent 3D workstation. IV contrast was administered without co mplication. Automated exposure control was utilized for the study. A dose lowering technique was ut ilized adhering to the principles of ALARA. CT DOSE: 916.90 mGy.cm FINDINGS: No pulmonary emboli are identified. Moderate cardiomegaly is noted. There is no pericardia l effusion. Prominent mediastinal lymph nodes are unchanged since chest CT of March 31, 2018. There is no pneumothorax. There are trace bilateral pleural effusions. Subpleural left lower lobe opacity favors atelectasis. A 6 mm left upper lobe nodule on image 205 of 278 is unchanged since prior chest CT. This is benign. No consolidation is identified to suggest pneumonia. There is possible mild inter stitial pulmonary edema. Hepatic steatosis is noted within the visualized upper abdomen. IMPRESSION: 1. No pulmonary emboli identified. 2. Trace bilateral pleural effusions. Cardiomegaly. Possible mild interstitial pulmonary edema. 3. Subpleural left lower lobe opacity consistent with atelectasis. No consolidation to suggest pneumo avis. ACT 112: Negative or not required by law. Electronically signed by: Live Manrique M.D. 03/08/2022 9:47 PM
[2022-03-08] MEDS ORDERED: ACETAMINOPHEN 325 MG TAB PO PRN (22:13)
[2022-03-08] MEDS ORDERED: PHARMACY GLYCEMIC MGMT CONSULT PRN (22:13)
[2022-03-08] MEDS: MAGNESIUM OXIDE 400 MG TAB PO SCH (23:15)
[2022-03-08] MEDS: predniSONE 5 MG TAB PO SCH (23:16)
[2022-03-08] MEDS: GABAPENTIN 300 MG CAP PO SCH (23:16)
[2022-03-08] MEDS ORDERED: DEXTROSE 50% 50 ML SYRINGE IV PRN (23:45)
[2022-03-08] MEDS ORDERED: GLUCOSE 10 TAB/TUBE PO PRN (23:45)
[2022-03-08] MEDS ORDERED: CARBOHYDRATES FOR HYPOGLYCEMIA PO PRN (23:45)
[2022-03-08] MEDS ORDERED: GLUCAGON FOR INJ 1 MG VIAL SQ PRN (23:45)
[2022-03-08] MEDS ORDERED: GLUCOSE 40% GEL 15 GM TUBE PO PRN (23:45)
[2022-03-09] MEDS: INSULIN ASPART PER UNIT SC SCH ×5 (01:23→21:41)
[2022-03-09] MEDS: MAGNESIUM OXIDE 400 MG TAB PO SCH ×3 (07:37→21:40)
[2022-03-09] MEDS: GABAPENTIN 300 MG CAP PO SCH ×2 (07:37→21:39)
[2022-03-09] MEDS: lisinopril 20 MG TAB PO SCH (07:38)
[2022-03-09] MEDS: POTASSIUM CHLORIDE 10 MEQ TABCR PO SCH (07:38)
[2022-03-09] MEDS: metOLazone 2.5 MG TABLET PO SCH (07:38)
[2022-03-09] MEDS: ATORVASTATIN 10 MG TAB PO SCH (07:39)
[2022-03-09] MEDS: CHOLECALCIFEROL 5,000 UNITS 125 MCG TAB PO SCH (07:39)
[2022-03-09] MEDS: PANTOprazole 40 MG TAB PO SCH (07:39)
[2022-03-09] MEDS: METOPROLOL SUCC 50MG EXT REL TAB PO SCH (07:39)
[2022-03-09] MEDS: CEROVITE ADV FORMULA TAB PO SCH (07:39)
[2022-03-09] MEDS: FUROSEMIDE 40 MG/4 ML VIAL IV SCH ×2 (07:40→17:04)
[2022-03-09 07:53] LABS: Basophils # (auto) 0.03 K/uL (0-0.2); Basophils % (auto) 0.3 %; Eosinophils # (auto) 0.05 K/uL (0-0.50); Eosinophils % (auto) 0.5 %; Hematocrit (blood only) 36.1 % (40.1-51.0); Hemoglobin 10.7 g/dl (14.0-18.0); Immature Granulocytes # (auto) 0.04 K/uL (0.00-0.02); Immature Granulocytes % (auto) 0.4 %; Lymphocytes # (auto) 0.69 K/uL (1.2-3.4); Lymphocytes % (auto) 6.5 %; Mean Corpuscular Hemoglobin 25.5 pg (25.0-34.0); Mean Corpuscular Hgb Conc 29.6 g/dL (32.0-36.0); Mean Corpuscular Volume 86.2 fL (80.0-100.0); Mean Platelet Volume 10.3 fL (9.4-12.4); Monocytes # (auto) 0.59 K/uL (0.24-0.82); Monocytes % (auto) 5.6 %; Neutrophils # (auto) 9.19 K/uL (1.4-6.5); Neutrophils % (auto) 86.7 %; Platelet Count 258 K/uL (130-400); RDW Coefficient of Variation 17.3 % (11.5-14.5); RDW Standard Deviation 54.6 fL (36.4-46.3); Red Blood Count 4.19 M/uL (4.63-6.08); White Blood Count 10.59 K/ul (4.8-10.8)
[2022-03-09 08:18] LABS: BUN Creatinine Ratio 26.5 (10-20); Calcium 8.9 mg/dl (8.5-10.1); Creatinine Clr Calc Pharmacy 58.8 ml/min; Est GFR (African American) 57.4 ml/min; Est GFR (Non-African American) 49.5 ml/min; Potassium 4.8 mmol/L (3.5-5.1)
[2022-03-09 08:21] LABS: Estimated Average Glucose 171 mg/dl; Hemoglobin A1C 7.6 % (4.5-5.6)
--- NOTE | 2022-03-09 08:48 | Pharmacy Report ---
Pharmacy Glycemic Short Note 2 - Date of Service March 09, 2022 - Glycemic Short BSG Results (Last 24 hours): 03/08/22 03/08/22 03/08/22 16:16 19:31 19:45 Glucose 83 POC Glucose 66 L* 83 03/09/22 03/09/22 03/09/22 01:15 06:58 07:55 Glucose 138 H POC Glucose 158 H 144 H OUTPATIENT ANTIDIABETIC REGIMEN: * Metformin 500 mg PO BIDM * Jardiance 10 mg PO daily * Glimepiride 2 mg PO BIDM * Linagliptin 5 mg PO daily HbA1c: 7.6% (03/09/22) ASSESSMENT: * HEIDI is a 76 year old male admitted on evening of 03/08/22 with acute respiratory failure presumed secondary to CHF (HFpEF) * Trace bilateral pleural effusions noted on CT * Hypoglycemic at time of admission was 66 mg/dL * On chronic prednisone 5 mg PO HS for rheumatoid arthritis, to be continued while inpatient * Now that BSGs are trending up (197 mg/dL at lunch) will initiate conservative basal dose now and slightly tighten carb ratio PLAN FOR INPATIENT GLYCEMIC CONTROL: * Hold outpatient oral diabetes medications * Basal insulin * Lantus 10 units SC daily * Bolus insulin * NovoLog per scale ACHS or Q6hrs while NPO * Goal Range: Low 120 mg/dL - High 150 mg/dL * Correction Factor: 30 mg/dL/unit * Nutritional / Prandial insulin per carb ratio of 1 unit per 9 grams CHO consumed
[2022-03-09] MEDS ORDERED: NON-FORMULARY MEDICATION (Linagliptin [Tradjenta] 5 mg tablet) PO SCH (09:00)
[2022-03-09 09:57] LABS: Allen Test Pos (Pos); Base Excess ABG 14.5 mEq/L (-9-1.8); HCO3 ABG 43 mmol/L (19-24); Oxygen Saturation ABG 97.6 % (90-95); PCO2 ABG 67 mmHg (35-46); PO2 ABG 82 mmHg (80-95); pH ABG 7.41 (7.35-7.45)
[2022-03-09] MEDS ORDERED: LANTUS PER UNIT CHARGE SQ ONE (11:45)
--- NOTE | 2022-03-09 13:14 | Medical Student Progress Note ---
Date of Service March 09, 2022 Assessment & Plan (1) Obesity hypoventilation syndrome: Plan: Educate patient on arterial blood gas and chest CT findings. thread spooler goal: life style change with wt loss to decrease the lung resistance to expansion. Short term goal: Initiate BiPAP. (2) Sleep apnea: Plan: Order BiPAP. Have pt consistently use BiPAP at home (3) CHF (congestive heart failure): Plan: Acutely: continue IV diuresis until kidneys indicate dehydration to decrease pt's fluid status. Once dehydration status met d/c IV diuresis. Heart failure chronicity: acute on chronic Heart failure type: unspecified Qualified Code(s): I50.9 - Heart failure, unspecified Admission and Anticipated Discharge Date Admission Date: March 08, 2022 Supervising Attestation I personally examined the patient and verified all carlos points of history and exam, discussed case, and agree with decision making with Heydi BARBOUR Feeling better breathing better than before. Reviewed dietmain change recently was that they were eating a lot of cornit was buttered, and therefore quite salty. Otherwise his diet is quite stable and has been for quite a long time, he does take in some sodium in the form of things like mcdonald, but does not otherwise have a lot of very sodium rich foods, nor has he had any other recent changes to his diet. Extensive discussions on his medical issues, the main focus of the discussion centering on his OHS/LIDYA and how it interfaces with almost all of the rest of what is going wrong with him right now. He was previously on CPAP at 12 and could not tolerate it. His notes that some of it might of also been that he had decided he could not tolerate it, but also did note that the 14 of pressure continuous was a little bit tough. He also complains of ongoing low back painacross his low back, no radiation to his legs. Vitals noted, in general he is awake and alert pleasant no distress. HEENT normocephalic atraumatic mucous membranes moist. Lungs show bibasilar rales no rhonchi no wheezes no accessory muscle use good effort. Skin shows no rashes no pallor or icterus. Musculoskeletal/osteopathic shows right piriformis to be high tone tender decreased range of motion. Neuro shows no focal deficits. Acute on probably chronic hypoxic respiratory failure, chronic hypercapnic respiratory failure -The hypoxia acutely is probably all HFpEF, improving with diuresis. The chronic is likely almost entirely OHS/LIDYA, although may be there is a little bit of chronic HFpEF at play, but I doubt it. HFpEFimproving decompensated on admission (acute on chronic) -Salt load from bladder on Corne was likely what led to fluid retention leading to his decompensation leading to admission. Continue diuresis as he still has rales. Continue supportive care. Educated on sodium restriction. 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 Discussed that this can be difficult whenever he is feeling as lousy as he isbut that working in that direction is imperativebut also supporting him to get there as best we can will be helpful -Extensive discussions on CPAP/BiPAPI do suspect he needs BiPAP or trilogy, as he gets closer to discharge we will repeat a blood gas in the a.m., as well as an overnight pulse ox to get him qualified. Discussed that there are really no other viable options beyond pressure support such as BiPAP to help with the acute/chronically decompensated physiology. Discussed that in my experience most people who do not tolerate these devices largely have decided before they try but they are not going to tolerate it, and therefore their lack of tolerance really is more of a self-fulfilling prophecy. Discussed with him that really a "I have to" mindset is necessary to stave off a further decline and/or demise. Back pain -Given lack of radicular symptoms, I strongly suspect this is biomechanical centered on his right piriformis, likely all lumbosacral strain physiology. Discussed OMT. Have sent a message to his PCP to facilitate follow-up as far as OMT with him versus one of the other DO physicians in the group. DVT prophylaxisHeparin subcu Otherwise as above Time in the room approximately 3:15 PM, time out approximately 4:05 PM, greater than 30 minutes [id number] educating/counseling/discussing/etc. Subjective Sarwat states that he is doing better. He reports that his SOB is significantly decreased. Additionally, he endorses IV diuresis has been decreasing the fluid burden on predominantly his stomach. He states that his legs are generally not where his fluid accumulates and are not bothering him even though they appear edematous. Sarwat states that he does not have fatigue, wheezing, coughing, nighttime SOB/coughing, and he reports tiredness secondary to being in the hospital and not sleeping well. He reports no pain. He reports no concerns at this time. Physical Exam Constitutional: The pt is lying comfortably in his bed and in no acute distress Respiratory: Basilar bilateral crackles appreciated. Upper and middle lung lobes were clear to auscultation bilaterally. Cardiovascular: Heart sounds are distant likely due to body habitus. S1 and S2 were appreciated. LLE present and 1+ bilaterally. Results & Data ([facility]) Vital Signs (Past 12 Hours) Vital Signs Temp Pulse Resp BP Pulse Ox O2 Del Method O2 Flow Rate 03/09/22 11:00 36.8 C 57 L 16 144/68 H 94 Nasal Cannula 4 03/09/22 08:00 Nasal Cannula 4 03/09/22 07:50 36.7 C 57 L 16 128/63 95 Nasal Cannula 4 03/09/22 03:00 36.8 C 57 L 20 137/62 95 Nasal Cannula 4 Na 137 mmol/L (136-145) 03/09/22 K 4.8 mmol/L (3.5-5.1) 03/09/22 Cl 97 mmol/L (98-107) L 03/09/22 CO2 35 mmol/L (21-32) H 03/09/22 Anion Gap 5 (3-11) 03/09/22 BUN 36 mg/dl (6-23) H 03/09/22 Creatinine 1.36 mg/dl (0.6-1.4) 03/09/22 Est GFR ( Amer) 57.4 ml/min 03/09/22 Est GFR (Non-Af Amer) 49.5 ml/min 03/09/22 BUN/Creatinine Ratio 26.5 (10-20) H 03/09/22 Glu 138 mg/dl (70-99(Fasting)) H 03/09/22 Hemoglobin A1c 7.6 % (4.5-5.6) H 03/09/22 Ca 8.9 mg/dl (8.5-10.1) 03/09/22 Phosphorus Level 3.2 mg/dl (2.5-4.9) 10/26/21 Total Bilirubin 0.5 mg/dl (0.2-1.0) 03/08/22 Direct Bilirubin 0.1 mg/dl (0-0.2) 08/30/21 AST 67 U/L (13-39) H 03/08/22 ALT 70 U/L (7-52) H 03/08/22 Alkaline Phosphatase 39 U/L (34-104) 03/08/22 TP 7.8 gm/dl (6.0-8.3) 03/08/22 Albumin 4.1 gm/dl (3.4-5.0) 03/08/22 Globulin 3.7 gm/dl (2.5-4.0) 03/08/22 Triglycerides Level 203 mg/dl (0-150) H 11/29/21 Cholesterol 165 mg/dl (0-200) 11/29/21 LDL Cholesterol, Calc 87 mg/dl 11/29/21 HDL Cholesterol 37 mg/dl 11/29/21 Cholesterol/HDL Ratio 4.5 (0-5) 11/29/21 Laboratory Data Notes: Arterial Blood Gas: pH - 7.41 pCO2 - 67 (H) pO2 - 82 HCO3 - 43 (H) O2 Sat - 97.6 (H) Base Excess - 14.5 (H)
[2022-03-09] MEDS: HEPARIN SOD 5,000 UNIT/0.5 ML VIAL SQ SCH ×2 (13:58→21:40)
--- NOTE | 2022-03-09 17:11 | Electrocardiogram Report ---
Test Reason : Blood Pressure : / mmHG Vent. Rate : 054 BPM Atrial Rate : 054 BPM P-R Int : 238 ms QRS Dur : 078 ms QT Int : 408 ms P-R-T Axes : 056 -01 039 degrees QTc Int : 386 ms Poor data quality, interpretation may be adversely affected Sinus bradycardia with 1st degree A-V block Low voltage QRS Cannot rule out Anterior infarct (cited on or before 21-APR-2019) Abnormal ECG When compared with ECG of 28-FEB-2022 16:53, No significant change was found Confirmed by Burton Thao [id number]) on 03/09/2022 5:11:14 PM Referred By: REFERRED SELF Confirmed By:Burton Thao
--- NOTE | 2022-03-09 19:24 | Billing Data ---
Date of Service March 09, 2022 Coding Level of Care Code 98877 Prolonged Care (int'l)
--- NOTE | 2022-03-09 19:24 | Billing Data ---
Date of Service March 09, 2022 Coding Level of Care Code 98177 Subseq Hosp Care Lvl 3
[2022-03-09] MEDS: predniSONE 5 MG TAB PO SCH (21:39)
[2022-03-10] MEDS: HEPARIN SOD 5,000 UNIT/0.5 ML VIAL SQ SCH ×3 (05:02→22:34)
[2022-03-10 06:22] LABS: Basophils # (auto) 0.03 K/uL (0-0.2); Basophils % (auto) 0.3 %; Eosinophils # (auto) 0.08 K/uL (0-0.50); Eosinophils % (auto) 0.8 %; Hematocrit (blood only) 37.1 % (40.1-51.0); Hemoglobin 11.2 g/dl (14.0-18.0); Immature Granulocytes # (auto) 0.03 K/uL (0.00-0.02); Immature Granulocytes % (auto) 0.3 %; Lymphocytes # (auto) 0.54 K/uL (1.2-3.4); Lymphocytes % (auto) 5.4 %; Mean Corpuscular Hgb Conc 30.2 g/dL (32.0-36.0); Mean Corpuscular Volume 86.1 fL (80.0-100.0); Mean Platelet Volume 9.5 fL (9.4-12.4); Monocytes # (auto) 0.76 K/uL (0.24-0.82); Monocytes % (auto) 7.6 %; Neutrophils # (auto) 8.53 K/uL (1.4-6.5); Neutrophils % (auto) 85.6 %; Platelet Count 226 K/uL (130-400); RDW Coefficient of Variation 17.1 % (11.5-14.5); RDW Standard Deviation 53.6 fL (36.4-46.3); Red Blood Count 4.31 M/uL (4.63-6.08); White Blood Count 9.97 K/ul (4.8-10.8)
[2022-03-10 08:04] LABS: BUN Creatinine Ratio 24.3 (10-20); Calcium 8.9 mg/dl (8.5-10.1); Creatinine Clr Calc Pharmacy 54.7 ml/min; Est GFR (African American) 53.5 ml/min; Est GFR (Non-African American) 46.2 ml/min; Potassium 4.6 mmol/L (3.5-5.1)
[2022-03-10] MEDS: MAGNESIUM OXIDE 400 MG TAB PO SCH ×3 (08:29→20:32)
[2022-03-10] MEDS: CHOLECALCIFEROL 5,000 UNITS 125 MCG TAB PO SCH (08:30)
[2022-03-10] MEDS: CEROVITE ADV FORMULA TAB PO SCH (08:30)
[2022-03-10] MEDS: METOPROLOL SUCC 50MG EXT REL TAB PO SCH (08:30)
[2022-03-10] MEDS: GABAPENTIN 300 MG CAP PO SCH ×2 (08:30→20:32)
[2022-03-10] MEDS: metOLazone 2.5 MG TABLET PO SCH (08:30)
[2022-03-10] MEDS: PANTOprazole 40 MG TAB PO SCH (08:31)
[2022-03-10] MEDS: FUROSEMIDE 40 MG/4 ML VIAL IV SCH ×2 (08:31→17:21)
[2022-03-10] MEDS: lisinopril 20 MG TAB PO SCH (08:31)
[2022-03-10] MEDS: ATORVASTATIN 10 MG TAB PO SCH (08:31)
[2022-03-10] MEDS: POTASSIUM CHLORIDE 10 MEQ TABCR PO SCH (08:31)
[2022-03-10] MEDS: LANTUS PER UNIT CHARGE SQ SCH ×2 (08:32→20:30)
[2022-03-10] MEDS: INSULIN ASPART PER UNIT SC SCH ×4 (08:32→20:30)
--- NOTE | 2022-03-10 16:26 | Hospitalist Progress Note ---
Date of Service March 10, 2022 Assessment & Plan (1) Obesity hypoventilation syndrome: Plan: Educate patient on arterial blood gas and chest CT findings. rn long term care goal: life style change with wt loss to decrease the lung resistance to expansion. Short term goal: Initiate BiPAP. * Order overnight oxygen saturation sleep study, tentatively Saturday night (2) Sleep apnea: Plan: Order BiPAP. Have pt consistently use BiPAP at home (3) CHF (congestive heart failure): Plan: Acutely: continue IV diuresis until kidneys indicate dehydration to decrease pt's fluid status. Once dehydration status met d/c IV diuresis. Admission and Anticipated Discharge Date Admission Date: March 08, 2022 Supervising Physician Co-Signing Physician Notes I personally examined the patient and verified all carlos points of history and exam, discussed case, and agree with decision making with Dr Clark Breathing feeling a little better. Still not back to baseline but improving. Discussed overall plan with patient and . They expressed good understanding. Vitals noted, in general he is awake and alert pleasant no distress. HEENT normocephalic atraumatic mucous membranes moist. Breathing unlabored no accessory muscle use good effort. Skin shows no rashes no pallor or icterus. Neuro without focal deficits. Labs noted. Acute on probably chronic hypoxic respiratory failure, chronic hypercapnic respiratory failure -The hypoxia acutely is probably HFpEF, improving with diuresis. The chronic is likely almost entirely OHS/LIDYA, although may be there is a little bit of chronic HFpEF at play, but I doubt it. HFpEFimproving decompensated on admission (acute on chronic) -Salt load from butter on corn was likely what led to fluid retention leading to his decompensation leading to admission. Continue diuresis for now, follow clinical status and creatinine. Emphasized sodium restriction. 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 Discussed that this can be difficult whenever he is feeling as lousy as he isbut that working in that direction is imperativebut also supporting him to get there as best we can will be helpful -Extensive discussions on CPAP/BiPAPI do suspect he needs BiPAP or trilogy, as he gets closer to discharge we will repeat a blood gas in the a.m., as well as an overnight pulse ox to get him qualified (likely tomorrow nightbut will depend on the status of his HFpEF). Discussed that there are really no other viable options beyond pressure support such as BiPAP to help with the acute/chronically decompensated physiology. Discussed that in my experience most people who do not tolerate these devices largely have decided before they try but they are not going to tolerate it, and therefore their lack of tolerance really is more of a self-fulfilling prophecy. Discussed with him that really a "I have to" mindset is necessary to stave off a further decline and/or demise. Back pain -Given lack of radicular symptoms, I strongly suspect this is biomechanical centered on his right piriformis, likely all lumbosacral strain physiology. Discussed OMT on 03/09. Have sent a message to his PCP to facilitate follow-up as far as OMT with him versus one of the other DO physicians in the group. DVT prophylaxisHeparin subcu Otherwise as above Subjective He reports he is doing better this morning. Denies shortness of breath, chest tightness, or chest pain. Review of Systems Review of Systems: All systems reviewed & are unremarkable except as noted in HPI & below Physical Exam Physical Exam: General: Well-appearing, alert, interactive, and in no acute distress. HEENT: Normocephalic, atraumatic. EOM intact. Good conjugate gaze. Nares patent. Moist mucosal membranes. Neck: Supple. No lymphadenopathy. Normal ROM. CV: Regular rate and rhythm. Normal S1 and S2. No murmurs gallops or rubs. Respiratory: Normal respiratory effort. Bibasilar crackles, distinct bilateral end-expiratory wheeze heard on auscultation. Abdomen: Large, protuberant abdomen. No bruits heard on auscultation. No t enderness to deep palpation. Neuro: Alert and oriented x3. Skin: Clean, dry, and intact. No rashes, bruises, or erythema. Results & Data Results & Data ([facility]) Vital Signs (Past 12 Hours) Vital Signs Temp Pulse Pulse Pulse Resp BP Pulse Ox 03/10/22 15:08 59 L 03/10/22 15:07 36.7 C 55 L 16 131/62 90 03/10/22 11:32 37.1 C 54 L 20 156/79 H 94 03/10/22 10:10 03/10/22 08:00 03/10/22 07:08 60 03/10/22 06:45 36.6 C 66 20 144/71 H 92 03/10/22 04:32 132/64 Pulse Ox O2 Del Method O2 Del Method O2 Flow Rate O2 Flow Rate 03/10/22 15:08 03/10/22 15:07 Nasal Cannula 2 03/10/22 11:32 Nasal Cannula 2 03/10/22 10:10 89 L Nasal Cannula 2 03/10/22 08:00 Nasal Cannula 4 03/10/22 07:08 03/10/22 06:45 Nasal Cannula 4 03/10/22 04:32 Resident Activity Tracking Resident Involvement: Resident Care Provided Care Provided: Adult Hospital Medicine (1) CHF (congestive heart failure) Heart failure chronicity: acute on chronic Heart failure type: unspecified Qualified Code(s): I50.9 - Heart failure, unspecified
--- NOTE | 2022-03-10 18:04 | Billing Data ---
Date of Service March 10, 2022 Coding Level of Care Code 05438 Subseq Hosp Care Lvl 3
[2022-03-10] MEDS: predniSONE 5 MG TAB PO SCH (20:31)
[2022-03-11] MEDS: HEPARIN SOD 5,000 UNIT/0.5 ML VIAL SQ SCH ×3 (05:53→22:01)
[2022-03-11 07:08] LABS: BUN Creatinine Ratio 23.8 (10-20); Calcium 8.8 mg/dl (8.5-10.1); Creatinine Clr Calc Pharmacy 54.1 ml/min; Est GFR (Non-African American) 46.6 ml/min; Potassium 4.3 mmol/L (3.5-5.1)
[2022-03-11] MEDS ORDERED: LANTUS PER UNIT CHARGE SQ STA (08:15)
[2022-03-11] MEDS: INSULIN ASPART PER UNIT SC SCH ×4 (08:19→21:57)
[2022-03-11] MEDS: lisinopril 20 MG TAB PO SCH (08:21)
[2022-03-11] MEDS: metOLazone 2.5 MG TABLET PO SCH (08:22)
[2022-03-11] MEDS: POTASSIUM CHLORIDE 10 MEQ TABCR PO SCH (08:22)
[2022-03-11] MEDS: ATORVASTATIN 10 MG TAB PO SCH (08:22)
[2022-03-11] MEDS: MAGNESIUM OXIDE 400 MG TAB PO SCH ×3 (08:22→21:57)
[2022-03-11] MEDS: GABAPENTIN 300 MG CAP PO SCH ×2 (08:22→21:58)
[2022-03-11] MEDS: METOPROLOL SUCC 50MG EXT REL TAB PO SCH (08:23)
[2022-03-11] MEDS: PANTOprazole 40 MG TAB PO SCH (08:23)
[2022-03-11] MEDS: CHOLECALCIFEROL 5,000 UNITS 125 MCG TAB PO SCH (08:23)
[2022-03-11] MEDS: CEROVITE ADV FORMULA TAB PO SCH (08:23)
[2022-03-11] MEDS: FUROSEMIDE 40 MG/4 ML VIAL IV SCH ×2 (08:23→17:09)
[2022-03-11 10:43] LABS: Base Excess VBG 13.4 mEq/L; HCO3 VBG 43 mmol/L; Oxygen Saturation VBG 77.7 %; PCO2 VBG 82 mmHg (38-50); PO2 VBG 49 mmHg; pH VBG 7.33 (7.36-7.41)
--- NOTE | 2022-03-11 15:19 | Hospitalist Progress Note ---
Date of Service March 11, 2022 Assessment & Plan (1) Obesity hypoventilation syndrome: Plan: 76-year-old man with past medical history of type 2 diabetes, and recent past medical history of CHF in August, who presented to the ER with shortness of breath and increased weight gain. 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 -Provided education regarding arterial blood gas, need for lifestyle changes (specifically weight loss, to improve overall clinical outlook. * Overnight pulse ox ordered for tonight. A.m. ABG also ordered. Review results in the morning. * Recommend CPAP/BiPAP or Trelegy CHF -Appears to be secondary to increased butter intake with corn at home. * IV diuresis until signs of dehydration, then discontinue. Monitor kidney labs daily. Hypertension: Continue home meds Type 2 diabetes: Pharmacy glycemic consult. Code: DNR/DNI Dispo: Med-Surg with telemetry FEN/GI: Low-sodium heart healthy, fluid restriction 1500 mL DVT Prophylaxis: Heparin SQ (2) Sleep apnea: (3) CHF (congestive heart failure): Admission and Anticipated Discharge Date Admission Date: March 08, 2022 Supervising Physician Co-Signing Physician Notes I personally examined the patient and verified all carlos points of history and exam, discussed case, and agree with decision making with Dr Clark Breathing continues to improve slowly. Hopeful for home tomorrow. Discussed plans to try to get pressure support set up. Vitals noted, in general he is awake and alert pleasant no distress. HEENT normocephalic atraumatic mucous membranes moist. Breathing unlabored no accessory muscle use good effort. Skin shows no rashes no pallor or icterus. Neuro without focal deficits. Labs noted. Acute on probably chronic hypoxic respiratory failure, chronic hypercapnic respiratory failure -The hypoxia acutely is probably HFpEF, improving with diuresis. The chronic is likely almost entirely OHS/LIDYA, although may be there is a little bit of chronic HFpEF at play, but I doubt it. HFpEFimproving decompensated on admission (acute on chronic) -Salt load from butter on corn was likely what led to fluid retention leading to his decompensation leading to admission. Continue diuresis for now, follow clinical status and creatinine. Emphasized sodium restriction. Hopefully home tomorrow on progressively reducing dose of diuretics and close follow-up OHS/LIDYA -Given that he would likely be on the go home tomorrow, overnight pulse ox and a.m. 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 Discussed that this can be difficult whenever he is feeling as lousy as he isbut that working in that direction is imperativebut also supporting him to get there as best we can will be helpful -Extensive discussions on CPAP/BiPAPI do suspect he needs BiPAP or trilogy, as he gets closer to discharge we will repeat a blood gas in the a.m., as well as an overnight pulse ox to get him qualified (likely tomorrow nightbut will depend on the status of his HFpEF). Discussed that there are really no other viable options beyond pressure support such as BiPAP to help with the acute/chronically decompensated physiology. Discussed that in my experience most people who do not tolerate these devices largely have decided before they try but they are not going to tolerate it, and therefore their lack of tolerance really is more of a self-fulfilling prophecy. Discussed with him that really a "I have to" mindset is necessary to stave off a further decline and/or demise. Back pain -Given lack of radicular symptoms, I strongly suspect this is biomechanical centered on his right piriformis, likely all lumbosacral strain physiology. Discussed OMT on 03/09. Have sent a message to his PCP to facilitate follow-up as far as OMT with him versus one of the other DO physicians in the group. discussed again today DVT prophylaxisHeparin subcu Otherwise as above Subjective No acute events overnight. Patient has no complaints this morning. Breathing with nasal cannula 2 L. Review of Systems Review of Systems: All systems reviewed & are unremarkable except as noted in HPI & below Physical Exam Physical Exam: General: Well-appearing, alert, interactive, and in no acute distress. HEENT: Normocephalic, atraumatic. EOM intact. Good conjugate gaze. Nares patent. Moist mucosal membranes. Neck: Supple. No lymphadenopathy. Normal ROM. CV: Regular rate and rhythm. Normal S1 and S2. No murmurs gallops or rubs. Respiratory: Normal respiratory effort. Bibasilar crackles, distinct bilateral end-expiratory wheeze heard on auscultation. Abdomen: Large, protuberant abdomen. No bruits heard on auscultation. No tenderness to deep palpation. Neuro: Alert and oriented x3. Skin: Clean, dry, and intact. No rashes, bruises, or erythema. Results & Data Results & [facility] ([facility]) Vital Signs (Past 12 Hours) Vital Signs Temp Pulse Pulse Resp BP Pulse Ox Pulse Ox 03/11/22 10:59 36.8 C 56 L 18 127/63 94 03/11/22 10:00 93 03/11/22 08:00 03/11/22 07:45 36.6 C 63 18 157/69 H 90 03/11/22 07:08 53 L O2 Del Method O2 Del Method O2 Flow Rate O2 Flow Rate 03/11/22 10:59 Nasal Cannula 3 03/11/22 10:00 Nasal Cannula 3 03/11/22 08:00 Nasal Cannula 3 03/11/22 07:45 Nasal Cannula 2 03/11/22 07:08 Resident Activity Tracking Resident Involvement: Resident Care Provided Care Provided: Adult Hospital Medicine (1) CHF (congestive heart failure) Heart failure chronicity: acute on chronic Heart failure type: unspecified Qualified Code(s): I50.9 - Heart failure, unspecified
--- NOTE | 2022-03-11 19:14 | Billing Data ---
Date of Service March 11, 2022 Coding Level of Care Code 64982 Subseq Hosp Care Lvl 3
[2022-03-11] MEDS ORDERED: LANTUS PER UNIT CHARGE SQ ONE (21:00)
[2022-03-11] MEDS: predniSONE 5 MG TAB PO SCH (21:57)
[2022-03-12] MEDS: HEPARIN SOD 5,000 UNIT/0.5 ML VIAL SQ SCH ×2 (05:48→12:14)
[2022-03-12 08:25] LABS: Base Excess ABG 15.2 mEq/L (-9-1.8); HCO3 ABG 42 mmol/L (19-24); Oxygen Saturation ABG 88.1 % (90-95); PCO2 ABG 59 mmHg (35-46); PO2 ABG 57 mmHg (80-95); pH ABG 7.46 (7.35-7.45)
[2022-03-12] MEDS: INSULIN ASPART PER UNIT SC SCH ×2 (08:36→12:11)
[2022-03-12] MEDS: MAGNESIUM OXIDE 400 MG TAB PO SCH ×2 (08:37→13:15)
[2022-03-12] MEDS: GABAPENTIN 300 MG CAP PO SCH (08:37)
[2022-03-12] MEDS: metOLazone 2.5 MG TABLET PO SCH (08:37)
[2022-03-12] MEDS: ATORVASTATIN 10 MG TAB PO SCH (08:37)
[2022-03-12] MEDS: CEROVITE ADV FORMULA TAB PO SCH (08:37)
[2022-03-12] MEDS: lisinopril 20 MG TAB PO SCH (08:38)
[2022-03-12] MEDS: POTASSIUM CHLORIDE 10 MEQ TABCR PO SCH (08:38)
[2022-03-12] MEDS: METOPROLOL SUCC 50MG EXT REL TAB PO SCH (08:38)
[2022-03-12] MEDS: CHOLECALCIFEROL 5,000 UNITS 125 MCG TAB PO SCH (08:38)
[2022-03-12] MEDS: FUROSEMIDE 40 MG/4 ML VIAL IV SCH (08:39)
[2022-03-12] MEDS: PANTOprazole 40 MG TAB PO SCH (08:39)
[2022-03-12 08:51] LABS: BUN Creatinine Ratio 25.2 (10-20); Calcium 8.8 mg/dl (8.5-10.1); Creatinine Clr Calc Pharmacy 50.6 ml/min; Est GFR (Non-African American) 42.3 ml/min; Potassium 4.4 mmol/L (3.5-5.1)
[2022-03-12] MEDS ORDERED: LANTUS PER UNIT CHARGE SQ SCH (09:00)
[2022-03-12 09:19] LABS: Allen Test Pos (Pos)
--- NOTE | 2022-03-12 14:34 | Discharge Summary ---
Date of Service March 12, 2022 Admission HPI Per Admitting Provider Sarwat Campbell is a 76 year old male who presents to the ER with shortness of breath and weight gain. He was hospitalized for congestive heart failure in August and feels similar to this occasion. He was recently seen in the emergency room on March 01 with the same symptoms and was given Lasix 40mg IV and advised to follow up with cardiology. His shortness of breath and weight gain was getting worse for around 2 weeks leading up to this ER visit. He is currently taking Lasix 60mg PO in the morning and 40mg PO in the afternoon. He has taken his metolazone 4 times since the visit. His who provides most of the history reports his weight has fluctuated and not consistently been going down. They deny any change in diet or increased fluids. He reports orthopnea but no paroxysmal nocturnal dyspnea. Increased leg swelling. No claudication. Due to feeling like he breathing was getting worse today he was advised to go to the ER. Of note he is now wearing oxygen 3LPM O2 31/12 however this is only recent with this current shortness of breath. After his last CHF visit in August they report he was able to wean off oxygen at rest and was only using it as needed up until this recent ER exacerbation. He denies any chest pain. Admission Exam Per Admitting Provider Constitutional: WD/WN, vitals as above + morbidly obese Eyes: + anicteric sclerae; normal pupil size ENMT: external ear and nose normal, oropharynx normal Neck: trachea midline, no thyromegaly + short neck and + thick neck Respiratory: + respiratory distress, + retractions an d + uses accessory muscle s; expiratory phase not prolonged Auscultation: + crackles (bibasal); breath sounds present, no diminished lung sounds and no wheezes Cardiovascular: Rate/Rhythm: regular rate and regular rhythm Heart Sounds: no murmur Extremities: normal capillary refill and + pedal edema (2+ bilateral equal pre-tibial pitting); no calf tenderness Gastrointestinal (Abdomen): normal bowel sounds, soft, nontender, no hepatosplenomegaly Musculoskeletal: no cyanosis or clubbing, extremities motor strength 5/5 Skin: no rashes, warm and dry Neurologic: moves all extremities and awake; not confused Psychiatric: A+Ox3, euthymic affect Principal Diagnosis CHF exacerbation Discharge Exam General: Well-appearing, alert, interactive, and in no acute distress. HEENT: Normocephalic, atraumatic. EOM intact. Good conjugate gaze. Nares patent. Moist mucosal membranes. Neck: Supple. No lymphadenopathy. Normal ROM. CV: Regular rate and rhythm. Normal S1 and S2. No murmurs gallops or rubs. Respiratory: Normal respiratory effort. Distant lung sounds due to large body habitus. Faint bibasilar crackles heard on auscultation. No rhonchi or wheezes. Abdomen: Large, protuberant abdomen. No bruits heard on auscultation. No tenderness to deep palpation. Neuro: Alert and oriented x3. Skin: Clean, dry, and intact. No rashes, bruises, or erythema. Discharge Data Allergies Allergy/AdvReac Type Severity Reaction Status Date / Time codeine Allergy Intermediate HIVES (PT Verified 03/05/22 11:46 DOES NOT USE PERCOCET) Consultations 03/08/22 18:14 ED Decision to Admit Stat Ordered Studies 03/08/22 19:40 CT for pulmonary embolism PE [CT angio chest PE protocol] Stat Hospital Course (1) Obesity hypoventilation syndrome: 76-year-old man with past medical history of type 2 diabetes, and recent past medical history of CHF in August, who presented to the ER with shortness of breath and increased weight gain. Obesity hypoventilation syndrome/sleep apnea -No prior diagnosis although almost certainly chronic lifter/driver of CHF, hypertension. -Provided education regarding arterial blood gas, need for lifestyle changes (specifically weight loss, to improve overall clinical outlook. * Overnight pulse ox ordered prior to discharge. Arterial blood gas also ordered. * Recommend BiPAP nightly * Also recommend starting Trelegy NIV for treatment of chronic respiratory failure consequent to severe COPD. CPAP has failed in the past and BIPAP has been considered and ruled out. VAPS mode will target tidal volume to help maintain acceptable PaCO2 levels in the home setting, reducing risk of readmissions. Pt also requires oxygen cont and bled into the NIV. CHF -Appears to be secondary to increased butter intake with corn at home. Provided dietary counseling on sodium management, water intake. * IV diuresis until signs of dehydration, then discontinued. Monitor kidney labs daily. Hypertension: Continued home meds Type 2 diabetes: Pharmacy glycemic consult. (2) Sleep apnea: (3) CHF (congestive heart failure): Total Time Total Time Spent Total Time Spent (In Minutes): 35 minutes, including patient exam, documentation, and signing documents for DME. Discharge Plan Discharge Items Patient Disposition: Home - Self-Care Reason For Visit: ACUTE CHF Discharge Diagnosis: CHF exacerbation, obesity hypoventilation syndrome Activity: Per Instructions section Non-emergency contact: Primary Care Provider Call non-emergency contact if: you have any medication questions, your symptoms worsen, your pain is not controlled, your pain is worsening, your pain is unusual for you, your pain is concerning for you, you have a fever and your temperature is above 101.5 Follow-up/Referrals: Robbie Mohr, [Primary Care Provider] - 03/19/22 12:00 pm Diet: Regular Addtl Attending Provider Instructions: Dear Sarwat, You came to the hospital due to worsening weight gain and shortness of breath. You were admitted to the hospital because of concern for an exacerbation of your recently diagnosed congestive heart failure. We believe that this was as a result of some inadvertent changes you have made to your diet, which caused you to take a lot more water than usual. During your stay, we gave you medications to help you lose some of the extra fluid. We also were concerned about your air delivery to your lungs while you sleep, disorder of which is known as obstructive sleep apnea. We believe that your symptoms would be improved by a CPAP machine at night. To help you qualify for this machine while outpatient, we conducted a nocturnal pulse oximetry study and ordered some labs. We have completed the prescription documentation for you to be fitted for CPAP machine at home. Diastolic CHF: Though this was the acute reason for your hospitalization, it is ultimately a minor factor in your overall health and long-term health moving forward. As mentioned above, we diuresed you with Lasix until your fluid overload resolved. For best results moving forward, please: * Avoid sodium in your diet. Be careful when trying new foods, paying attention to hidden sources of sodium. * Check your weights daily, paying particular attention to any new swelling of your extremities. * Adjust your Lasix dose based on your fluid status. This should be managed by your primary care physician. * Routine surveillance of your volume status and renal function via BMP, or basic metabolic panel labs. Again, this should be managed by your PCP. Obesity hypoventilation syndrome (OHS): This disorder is perhaps the major factor in your symptomatic decline and frailty, and the important thing to control for your long-term health moving forward. In order to address this, it is absolutely necessary, nonnegotiable even, to utilize pressure support, like a CPAP or BiPAP machine. Continuing without it will lead to a gradual increase of stress or strain on your heart over time, which will lead to poorly controlled blood pressure, which in turn would lead to several other downstream effects that would accelerate your functional decline in the coming years. Fortunately, consistent, faithful adherence to pressure ventilation support therapy can help achieve favorable health outcomes overall in the future. Another factor that will help reduce or minimize the effect of OHS is gradual weight loss, over time. This would help improve pressure ventilation. This has been proven to have an enormous benefit in addition to pressure support. Back pain: On assessment in the hospital, we believe that your back pain is almost entirely biomechanical, and centered in the piriformis muscle. Due to the biomechanical nature of the pain, this is something that can be managed effectively with something called osteopathic manipulative therapy or OMT. Fortunately, there are several primary care physicians that specialize in this type of treatment, and it is usually covered by insurance. You should talk to your doctor about scheduling an OMT session. If your doctor does not provide OMT sessions, there are several in the area that do. Within [facility], Dr. Rishabh Lujan of [facility] is an excellent physician who is experienced in osteopathic manipulation. To schedule an appointment, call his office at [phone]. If he is unavailable, his office may also be able to provide recommendations for other similarly experienced physicians. Medications * We are sending you with a prescription for a daily inhaler called Trelegy. Please use Trelegy every day, 1 inhalation/puff a day. * We made no further changes to your current medications. You may continue to take those medications as instructed unless otherwise directed by your primary care physician. Appointments You are scheduled for an appointment with your primary care physician, Dr. Mohr, on March 19, 2022 at 12:00 PM. Please be sure to show up for that appointment. If for any reason you are unable to make that appointment, or need to reschedule, you should call his office at [phone]. It has been a pleasure to care for you here at [facility]. If you have any questions or concerns about your stay here, you can contact us at [phone]. We wish you all the best of luck with your recovery. Pending Studies at Discharge: No Stand-Alone Forms: My [facility], Smoking Cessation Medications and DC Order Prescriptions: Continued cholecalciferol (vitamin D3) [Vitamin D3] 25 mcg (1,000 unit) capsule 5,000 unit PO QAM glimepiride 2 mg tablet 2 mg PO BID Qty: 180 3RF metformin 500 mg tablet 500 mg PO BID Qty: 180 3RF Rx Instructions: Administer with food (DME) OneTouch Verio test strips Strip See Rx Instructions .Route Qty: 100 5RF Rx Instructions: check glucose daily dx code : e11.22 (DME) lancets [OneTouch Delica Lancets] 33 gauge misc See Dose Instructions .ROUTE .MEDSUPPLY Qty: 100 5RF Dose Instruction: As directed Rx Instructions: Use to check glucose daily DX CODE: E11.22 Tradjenta 5 mg tablet 5 mg PO QAM Qty: 30 11RF (DME) Portable Oxygen Misc See Rx Instructions .Route Qty: 1 11RF Rx Instructions: As directed Jardiance 10 mg tablet 10 mg PO DAILY Qty: 30 5RF furosemide 40 mg tablet See Rx Instructions PO .COMPLEX Qty: 120 11RF Rx Instructions: 60 mg in morning and 40 mg in afternoon PO; Combivent Respimat 20-100 mcg/actuation mist 1 puff inhalation Q6H magnesium oxide 400 mg magnesium tablet 400 mg PO TID Qty: 270 1RF gabapentin 300 mg capsule 300 mg PO BID Qty: 180 3RF prednisone 5 mg tablet 5 mg PO HS potassium chloride 10 mEq capsule, extended release 10 meq PO QAM atorvastatin 10 mg tablet 10 mg PO QAM metoprolol succinate 200 mg tablet extended release 24 hr 200 mg PO QAM lisinopril 20 mg tablet 20 mg PO QAM omeprazole 20 mg capsule,delayed release(DR/EC) 20 mg PO QAM Xeljanz XR 11 mg tablet extended release 24 hr 11 mg PO QAM [id number] Tablet 1 tab PO DAILY tramadol [Ultram] 50 mg tablet 50 - 100 mg PO Q4H PRN (Reason: pain) Qty: 10 0RF metolazone 2.5 mg tablet 2.5 mg PO .PRN Qty: 7 0RF Hold Instructions: Home Medication placed on hold at Doctor's office Rx Instructions: for weight gain greater than 5 pounds in 3 days Discharge Orders: Discharge Order (Routine); Ordered 03/12/22 Ordered By: Ct Lloyd/Other Patient Handouts: Managing Type 2 Diabetes Admission Data Admit Date/Time: 03/08/22 19:03 Attending Provider: Howard Aguilera Admit Provider: Amauri Redd Primary Care Provider: Robbie Mohr Other Providers: Amauri Redd Other Interventions: Discharge Summary Assessment (RN) Last Done: 03/12/22 12:40 Supervising Physician Co-Signing Physician Notes I also saw the patient separately and discussed the case with the resident physician. I confirmed carlos portion of the history and physical examination. I also discussed the case with the care management team. Upon my examination this morning, the patient was seated in the bedside chair. He was looking forward to going home. He reports that his breathing continues to improve. He has no complaints this morning. Exam 129/65, 66, 19, 36.6, 90% on nasal cannula at 2 L/min Respirations nonlabored. Lungs clear. Heart regular rate. Abdomen obese but nontender Data ABG pH 7.46, PCO2 59, PO2 57 Sodium 135, potassium 4.4, BUN 39, creatinine 1.55 Impression and Plan Acute on probably chronic hypoxic respiratory failure, chronic hypercapnic respiratory failure HFpEFimproving decompensated on admission (acute on chronic) Is improving with diuresis Creatinine up slightly today but still within his baseline OHS/LIDYA Patient with chronic respiratory failure secondary to COPD, with some degree of obesity hypoventilation syndrome He was intolerant of CPAP, based on morning ABG he would be at high risk of readmission; agree with Trilogy, unfortunately was denied by insurance He does have home oxygen at baseline; encourage retrial of CPAP, although will need to appeal decision via PCP. Additional per resident documentation as noted above Resident Activity Tracking Resident Involvement: Resident Care Provided Care Provided: Adult Hospital Medicine
--- NOTE | 2022-03-12 16:17 | Discharge Summary ---
Date of Service March 12, 2022 Admission HPI Per Admitting Provider Sarwat Campbell is a 76 year old male who presents to the ER with shortness of breath and weight gain. He was hospitalized for congestive heart failure in August and feels similar to this occasion. He was recently seen in the emergency room on March 01 with the same symptoms and was given Lasix 40mg IV and advised to follow up with cardiology. His shortness of breath and weight gain was getting worse for around 2 weeks leading up to this ER visit. He is currently taking Lasix 60mg PO in the morning and 40mg PO in the afternoon. He has taken his metolazone 4 times since the visit. His who provides most of the history reports his weight has fluctuated and not consistently been going down. They deny any change in diet or increased fluids. He reports orthopnea but no paroxysmal nocturnal dyspnea. Increased leg swelling. No claudication. Due to feeling like he breathing was getting worse today he was advised to go to the ER. Of note he is now wearing oxygen 3LPM O2 31/12 however this is only recent with this current shortness of breath. After his last CHF visit in August they report he was able to wean off oxygen at rest and was only using it as needed up until this recent ER exacerbation. He denies any chest pain. Admission Exam Per Admitting Provider Constitutional: WD/WN, vitals as above + morbidly obese Eyes: + anicteric sclerae; normal pupil size ENMT: external ear and nose normal, oropharynx normal Neck: trachea midline, no thyromegaly + short neck and + thick neck Respiratory: + respiratory distress, + retractions an d + uses accessory muscle s; expiratory phase not prolonged Auscultation: + crackles (bibasal); breath sounds present, no diminished lung sounds and no wheezes Cardiovascular: Rate/Rhythm: regular rate and regular rhythm Heart Sounds: no murmur Extremities: normal capillary refill and + pedal edema (2+ bilateral equal pre-tibial pitting); no calf tenderness Gastrointestinal (Abdomen): normal bowel sounds, soft, nontender, no hepatosplenomegaly Musculoskeletal: no cyanosis or clubbing, extremities motor strength 5/5 Skin: no rashes, warm and dry Neurologic: moves all extremities and awake; not confused Psychiatric: A+Ox3, euthymic affect Principal Diagnosis CHF exacerbation Discharge Exam General: Well-appearing, alert, interactive, and in no acute distress. HEENT: Normocephalic, atraumatic. EOM intact. Good conjugate gaze. Nares patent. Moist mucosal membranes. Neck: Supple. No lymphadenopathy. Normal ROM. CV: Regular rate and rhythm. Normal S1 and S2. No murmurs gallops or rubs. Respiratory: Normal respiratory effort. Lungs clear to auscultation bilaterally. No crackles, rhonchi, or wheezes. Abdomen: Soft, nondistended abdomen. No bruits heard on auscultation. No tendern ess to deep palpation. No guarding or rebound. Extremities: Capillary refill <2 sec. 2+ dp equal bilaterally. No pedal edema. Neuro: Alert and oriented x3. Skin: Clean, dry, and intact. No rashes, bruises, or erythema. Discharge Data Allergies Allergy/AdvReac Type Severity Reaction Status Date / Time codeine Allergy Intermediate HIVES (PT Verified 03/05/22 11:46 DOES NOT USE PERCOCET) Consultations 03/08/22 18:14 ED Decision to Admit Stat Ordered Studies 03/08/22 19:40 CT for pulmonary embolism PE [CT angio chest PE protocol] Stat Hospital Course (1) Obesity hypoventilation syndrome: 76-year-old man with past medical history of type 2 diabetes, and recent past medical history of CHF in August, who presented to the ER with shortness of breath and increased weight gain. 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 -Provided education regarding arterial blood gas, need for lifestyle changes (specifically weight loss, to improve overall clinical outlook. * Overnight pulse ox ordered prior to discharge. Arterial blood gas also ordered. * Recommend BiPAP nightly * Also recommend starting Trelegy NIV for treatment of chronic respiratory failure consequent to severe COPD. CPAP has failed in the past and BIPAP has been considered and ruled out. VAPS mode will target tidal volume to help maintain acceptable PaCO2 levels in the home setting, reducing risk of readmissions. Pt also requires oxygen cont and bled into the NIV. CHF -Appears to be secondary to increased butter intake with corn at home. Provided dietary counseling on sodium management, water intake. * IV diuresis until signs of dehydration, then discontinued. Monitor kidney labs daily. Hypertension: Continued home meds Type 2 diabetes: Pharmacy glycemic consult. (2) Sleep apnea: (3) CHF (congestive heart failure): Discharge Plan Discharge Items Patient Disposition: Home - Self-Care Reason For Visit: ACUTE CHF Discharge Diagnosis: CHF exacerbation, obesity hypoventilation syndrome Activity: Per Instructions section Non-emergency contact: Primary Care Provider Call non-emergency contact if: you have any medication questions, your symptoms worsen, your pain is not controlled, your pain is worsening, your pain is unusual for you, your pain is concerning for you, you have a fever and your temperature is above 101.5 Follow-up/Referrals: Robbie Mohr DO [Primary Care Provider] - 03/19/22 12:00 pm Diet: Regular Addtl Attending Provider Instructions: Dear Sarwat, You came to the hospital due to worsening weight gain and shortness of breath. You were admitted to the hospital because of concern for an exacerbation of your recently diagnosed congestive heart failure. We believe that this was as a result of some inadvertent changes you have made to your diet, which caused you to take a lot more water than usual. During your stay, we gave you medications to help you lose some of the extra fluid. We also were concerned about your air delivery to your lungs while you sleep, disorder of which is known as obstructive sleep apnea. We believe that your symptoms would be improved by a CPAP machine at night. To help you qualify for this machine while outpatient, we conducted a nocturnal pulse oximetry study and ordered some labs. We have completed the prescription documentation for you to be fitted for CPAP machine at home. Diastolic CHF: Though this was the acute reason for your hospitalization, it is ultimately a minor factor in your overall health and long-term health moving forward. As mentioned above, we diuresed you with Lasix until your fluid overload resolved. For best results moving forward, please: * Avoid sodium in your diet. Be careful when trying new foods, paying attention to hidden sources of sodium. * Check your weights daily, paying particular attention to any new swelling of your extremities. * Adjust your Lasix dose based on your fluid status. This should be managed by your primary care physician. * Routine surveillance of your volume status and renal function via BMP, or basic metabolic panel labs. Again, this should be managed by your PCP. Obesity hypoventilation syndrome (OHS): This disorder is perhaps the major factor in your symptomatic decline and frailty, and the important thing to control for your long-term health moving forward. In order to address this, it is absolutely necessary, nonnegotiable even, to utilize pressure support, like a CPAP or BiPAP machine. Continuing without it will lead to a gradual increase of stress or strain on your heart over time, which will lead to poorly controlled blood pressure, which in turn would lead to several other downstream effects that would accelerate your functional decline in the coming years. Fortunately, consistent, faithful adherence to pressure ventilation support therapy can help achieve favorable health outcomes overall in the future. Another factor that will help reduce or minimize the effect of OHS is gradual weight loss, over time. This would help improve pressure ventilation. This has been proven to have an enormous benefit in addition to pressure support. Back pain: On assessment in the hospital, we believe that your back pain is almost entirely biomechanical, and centered in the piriformis muscle. Due to the biomechanical nature of the pain, this is something that can be managed effectively with something called osteopathic manipulative therapy or OMT. Fortunately, there are several primary care physicians that specialize in this type of treatment, and it is usually covered by insurance. You should talk to your doctor about scheduling an OMT session. If your doctor does not provide OMT sessions, there are several in the area that do. Within [facility], Dr. Rishabh Lujan of [facility] is an excellent physician who is experienced in osteopathic manipulation. To schedule an appointment, call his office at [phone]. If he is unavailable, his office may also be able to provide recommendations for other similarly experienced phys icians. Medications * We are sending you with a prescription for a daily inhaler called Trelegy. Please use Trelegy every day, 1 inhalation/puff a day. * We made no further changes to your current medications. You may continue to take those medications as instructed unless otherwise directed by your primary care physician. Appointments You are scheduled for an appointment with your primary care physician, Dr. Mohr, on March 19, 2022 at 12:00 PM. Please be sure to show up for that appointment. If for any reason you are unable to make that appointment, or need to reschedule, you should call his office at [phone]. It has been a pleasure to care for you here at [facility]. If you have any questions or concerns about your stay here, you can contact us at [phone]. We wish you all the best of luck with your recovery. Pending Studies at Discharge: No Stand-Alone Forms: My [facility], Smoking Cessation Medications and DC Order Prescriptions: Continued cholecalciferol (vitamin D3) [Vitamin D3] 25 mcg (1,000 unit) capsule 5,000 unit PO QAM glimepiride 2 mg tablet 2 mg PO BID Qty: 180 3RF metformin 500 mg tablet 500 mg PO BID Qty: 180 3RF Rx Instructions: Administer with food (DME) OneTouch Verio test strips Strip See Rx Instructions .Route Qty: 100 5RF Rx Instructions: check glucose daily dx code : e11.22 (DME) lancets [OneTouch Delica Lancets] 33 gauge misc See Dose Instructions .ROUTE .MEDSUPPLY Qty: 100 5RF Dose Instruction: As directed Rx Instructions: Use to check glucose daily DX CODE: E11.22 Tradjenta 5 mg tablet 5 mg PO QAM Qty: 30 11RF (DME) Portable Oxygen Misc See Rx Instructions .Route Qty: 1 11RF Rx Instructions: As directed Jardiance 10 mg tablet 10 mg PO DAILY Qty: 30 5RF furosemide 40 mg tablet See Rx Instructions PO .COMPLEX Qty: 120 11RF Rx Instructions: 60 mg in morning and 40 mg in afternoon PO; Combivent Respimat 20-100 mcg/actuation mist 1 puff inhalation Q6H magnesium oxide 400 mg magnesium tablet 400 mg PO TID Qty: 270 1RF gabapentin 300 mg capsule 300 mg PO BID Qty: 180 3RF prednisone 5 mg tablet 5 mg PO HS potassium chloride 10 mEq capsule, extended release 10 meq PO QAM atorvastatin 10 mg tablet 10 mg PO QAM metoprolol succinate 200 mg tablet extended release 24 hr 200 mg PO QAM lisinopril 20 mg tablet 20 mg PO QAM omeprazole 20 mg capsule,delayed release(DR/EC) 20 mg PO QAM Xeljanz XR 11 mg tablet extended release 24 hr 11 mg PO QAM [id number] Tablet 1 tab PO DAILY tramadol [Ultram] 50 mg tablet 50 - 100 mg PO Q4H PRN (Reason: pain) Qty: 10 0RF metolazone 2.5 mg tablet 2.5 mg PO .PRN Qty: 7 0RF Hold Instructions: Home Medication placed on hold at Doctor's office Rx Instructions: for weight gain greater than 5 pounds in 3 days Discharge Orders: Discharge Order (Routine); Ordered 03/12/22 Ordered By: Ct Lloyd/Other Patient Handouts: Managing Type 2 Diabetes Admission Data Admit Date/Time: 03/08/22 19:03 Attending Provider: Howard Aguilera Admit Provider: Amauri Redd Primary Care Provider: Robbie Mohr Other Providers: Amauri Redd Other Interventions: Discharge Summary Assessment (RN) Last Done: 03/12/22 12:40
== END 2022-03-12 14:54 | disposition home or self-care (01) | DRG 291 ==
LOC: ED 15:17 → 2W 19:03 → SUATTDRO 19:03 → 2W 22:11

== ENCOUNTER 2022-07-05 16:52 | Inpatient (IN) ==
[2022-07-05] MEDS ORDERED: ALBUTEROL 0.083% NEBU SOLN 3 ML VIAL NEB STA (17:11)
--- NOTE | 2022-07-05 17:11 | Emergency Department Note ---
Impression & Plan CHF (congestive heart failure), Hypoxia, Anemia, Elevated troponin ED Provider Note NAME: HINA ALEX AGE: 77 SEX: M : 1945 ARRIVES VIA: Ambulance INFORMANT: Patient ED PROVIDER(S): Chuck Palma DO CHIEF COMPLAINT: shortness of breath HPI: Patient is a 77-year-old male with past medical history of CKD, COPD, obesity, CHF, diabetes, GERD, hypertension, and hyperlipidemia that presents to the ER for cough and congestion which started last week. He notes the shortness of breath has been getting worse. Has 2 L NC PRN. He notes that the shortness of breath has been getting worse. On his typical 2L NC he is 85%. Denies any headache or change in vision. No belly pain, nausea, vomiting, or diarrhea. No dysuria, urgency, or frequency. No other exacerbating or remitting factors. PAST MEDICAL HISTORY:See Below PAST SURGICAL HISTORY:See Below FAMILY HISTORY:See Below SOCIAL HISTORY:See Below HOME MEDICATIONS:See Below ALLERGIES:See Below VITALS:See Below PHYSICAL EXAMINATION: GENERAL: Sitting up in bed, alert, disheveled, morbidly obese on 4 L nasal cannula but dyspneic with conversation EYE EXAM: normal conjunctiva. PERRL and EOM's grossly intact. OROPHARYNX: no exudate, no erythema, lips, buccal mucosa, and tongue normal and mucous membranes are moist NECK: supple, no nuchal rigidity, no adenopathy, non-tender LUNGS: Diminished bilaterally. Normal chest wall mechanics HEART: no murmurs, S1 normal and S2 normal ABDOMEN: abdomen soft, non-tender, normo-active bowel sounds, no masses, no rebound or guarding. UPPER EXTREMITIES: upper extremities are grossly normal. LOWER EXTREMITIES: Pitting edema bilaterally NEURO EXAM: Normal sensorium, cranial nerves II-XII grossly intact, normal speech, no gross weakness of arms, no gross weakness of legs. MEDICAL DECISION MAKING: Patient is a 77-year-old male who presents ER for above-stated complaint. IV was established blood was obtained. Labs show mild leukocytosis of 12,000. Mild anemia 11.5. VBG was unremarkable. BMP with a mild hyperkalemia 5.3. Creatinine 1.5 consistent with previous. LFTs bilirubin was unremarkable. Troponin elevated 22.1. BNP at 183. Lipase normal. COVID influenza and RSV was negative. Chest x-ray with mild cephalization consistent with CHF. He was given neb treatment as well as IV Lasix. He was updated bedside. Discussed with the hospitalist for further evaluation and management. External records were reviewed. Also discussed with the care managers in regards to work-up and admission. Triage Nursing notes reviewed. Limited review of prior medical records performed Vital Signs: reviewed and remarkable for hypoxic Differential diagnosis: Differential diagnoses includes but is not limited to pneumonia, bronchitis, COPD/Asthma exacerbation, pneumothorax, pulmonary embolism, congestive heart failure, acute coronary syndrome ER treatment provided: See below Diagnostics interpreted by me include EKG and cardiac monitoring as listed below: -Cardiac Monitoring: An order was placed for continuous cardiac monitoring. The monitor shows a rate of 82 with sinus rhythm. -ECG: Poor baseline rate of 80 Normal axis No PVCs QTC 438 -Laboratory studies:Interpreted by me as stated above in MDM and shown below. Imaging studies: Xrays: As interpreted by me: Portable AP upright 1 view of the chest shows no focal pneumonia per my read CTs show: none Consultation(s): Discussed with Dr. Amauri Redd for further evaluation treatment and work-up as well as presentation Procedures:none Critical Care: I have personally spent 31 minutes of critical care time in the direct management of this patient. This includes bedside care, interpretation of diagnostic studies, and testing, discussion with consultants, patient, and family members, and other required patient management activities. This 31 minutes is in excess of all separately billable procedures. Past Med/Surg History Medical History Acute hypoxemic respiratory failure Acute respiratory failure with hypoxia Acute sinusitis Chronic anemia CKD (chronic kidney disease), stage III COPD (chronic obstructive pulmonary disease) Diabetes GERD (gastroesophageal reflux disease) Hyperlipidemia Hypertension MGUS (monoclonal gammopathy of unknown significance) Morbid obesity On home oxygen therapy Peripheral neuropathy Psoriatic arthritis Rheumatoid arthritis SCC (squamous cell carcinoma) Sleep apnea Stage 2 chronic kidney disease Surgical History H/O arthroscopy of shoulder H/O excision of mass (09/14/21) History of bilateral knee replacement History of colonoscopy History of surgical removal of skin lesion Hx of appendectomy Hx of cholecystectomy Hx of hernia repair S/P right knee surgery Family History Father Myocardial infarction Heart disease Mother Cancer Non-Hodgkins lymphoma Sister Ovarian cancer Brother Lung cancer Grandfather Diabetes Other Family history non-contributory Denies family history of Prostate cancer Breast cancer Colorectal cancer Social History Smoking Status: Never smoker Second Hand Exposure: No; Hx Alcohol Use: No Hx Substance Use: No Preferred Language: Slovenian Communication Ability: Effective Career Representative Required: No Beliefs That Will Affect Care: None marital status: Current Living Situation: Spouse current occupational status: retired How many Children do You have: 3 Feels Safe at Home: Yes Childhood Exposure to Second-Hand Smoke: No caffeine: Yes during the past year weight has: remained stable Dental Care, Regularly: Yes Physical Activity Frequency: Daily Seatbelt Use: sometimes Sunscreen Use: No Assistive Devices: Cane and Oxygen - Continuous Allergies Allergies Allergy/AdvReac Type Severity Reaction Status Date / Time codeine Allergy Intermediate HIVES (PT Verified 07/05/22 17:16 DOES NOT USE PERCOCET) Home Meds Home Medications Medication Instructions Recorded Confirmed cholecalciferol (vitamin D3) 25 5,000 unit PO QAM 11/04/20 07/05/22 mcg (1,000 unit) capsule (Vitamin D3) prednisone 5 mg tablet 5 mg PO HS 12/28/20 07/05/22 omeprazole 20 mg capsule,delayed 20 mg PO QAM 09/11/21 07/05/22 release tofacitinib 11 mg tablet,extended 11 mg PO QAM 09/11/21 07/05/22 release 24 hr (Xeljanz XR) wwptvrvimyym-povyibkz-jltkhd tablet 1 tab PO DAILY 09/14/21 07/05/22 ipratropium 20 mcg-albuterol 100 1 puff inhalation Q6H 03/01/22 07/05/22 mcg/actuation mist for inhalation (Combivent Respimat) metolazone 2.5 mg tablet 2.5 mg PO Q3D PRN WT GAIN 5 LB IN 07/05/22 07/05/22 3 DAYS. tramadol 50 mg tablet 50 - 100 mg PO Q4H PRN Pain 07/05/22 07/05/22 Previous Rx's Medication Instructions Recorded magnesium oxide 400 mg PO TID #270 tabs 03/03/20 glimepiride 2 mg tablet 2 mg PO BID #180 tabs 06/29/21 metformin 500 mg tablet 500 mg PO BID #180 tabs 08/16/21 blood sugar diagnostic (YessiTouch #100 ea 09/01/21 Verio test strips) lancets 33 gauge (Omaruch Delica #100 ea 09/01/21 Lancets) empagliflozin 10 mg tablet 10 mg PO DAILY #30 tabs 01/11/22 (Jardiance) Portable Oxygen #1 ea 03/15/22 gabapentin 300 mg capsule 300 mg PO BID #180 caps 03/26/22 lisinopril 20 mg tablet 20 mg PO QAM #90 tabs 04/09/22 furosemide 40 mg tablet 60 mg PO BID #90 tabs 04/16/22 metoprolol succinate 200 mg 200 mg PO QAM #90 tabs 04/16/22 tablet,extended release 24 hr atorvastatin 10 mg tablet 10 mg PO QAM #90 tabs 05/01/22 potassium chloride 10 mEq 10 meq PO QAM #90 caps 06/25/22 capsule,extended release Results & Data (ED) Vital Signs Vital Signs - 24 hr 07/05/22 16:59 07/05/22 16:59 07/05/22 17:17 Temperature 37.1 C Temperature Source Oral Pulse Rate 69 Pulse Rate [Right Finger] 61 Pulse Rhythm [Right Finger] Pulse Strength [Right Finger] Respiratory Rate Respiratory Effort / Characteristics Respiratory Depth Respiratory Pattern Blood Pressure 119/54 L Blood Pressure [Right Arm] 119/54 L Blood Pressure Mean 75 Blood Pressure Mean [Right Arm] 75 Blood Pressure Position [Right Arm] Pulse Oximetry 90 91 92 Oxygen Delivery Method Nasal Cannula Nasal Cannula Nasal Cannula Oxygen Flow Rate 4 4 4 Sepsis Recent Fever Within 48 Hours No Sepsis New/Unexplained Change in Mental Status No Sepsis Action Taken by Nursing No Action Required 07/05/22 17:34 07/05/22 18:34 07/05/22 19:00 Temperature Temperature Source Pulse Rate Pulse Rate [Right Finger] 63 86 Pulse Rhythm [Right Finger] Regular Pulse Strength [Right Finger] Normal Respiratory Rate 20 Respiratory Effort / Characteristics Non-Labored Respiratory Depth Normal Respiratory Pattern Regular Blood Pressure Blood Pressure [Right Arm] 101/82 110/76 Blood Pressure Mean Blood Pressure Mean [Right Arm] 88 87 Blood Pressure Position [Right Arm] Lying Pulse Oximetry 90 90 92 Oxygen Delivery Method Nasal Cannula Nasal Cannula Nasal Cannula Oxygen Flow Rate 4 4.5 4.5 Sepsis Recent Fever Within 48 Hours Sepsis New/Unexplained Change in Mental Status Sepsis Action Taken by Nursing Laboratory Data 07/05/22 17:00 07/05/22 17:00 Lab Results 07/05/22 07/05/22 07/05/22 Range/Units 17:00 17:00 17:00 WBC 12.88 H (4.8-10.8) K/ul RBC 4.34 L (4.70-6.10) M/uL Hgb 11.5 L (14.0-18.0) g/dl Hct 37.9 L (42.0-52.0) % MCV 87.3 (80.0-100.0) fL MCH 26.5 (25.0-34.0) pg MCHC 30.3 L (32.0-36.0) g/dL RDW Std Deviation 56.7 H (36.4-46.3) fL RDW Coeff of Tony 17.8 H (11.5-14.5) % Plt Count 330 (130-400) K/uL MPV 9.4 (9.4-12.4) fL Immature Gran % (Auto) 0.9 % Neut % (Auto) 76.0 % Lymph % (Auto) 13.4 % Lares % (Auto) 8.2 % Eos % (Auto) 1.2 % Baso % (Auto) 0.3 % Neut # (Auto) 9.77 H (1.40-6.50) K/uL Lymph # (Auto) 1.73 (1.2-3.4) K/uL Lares # (Auto) 1.06 H (0.11-0.59) K/uL Eos # (Auto) 0.16 (0-0.50) K/uL Baso # (Auto) 0.04 (0-0.2) K/uL Immature Gran # (Auto) 0.12 (0.01-0.20) K/uL VBG pH 7.39 (7.36-7.41) VBG pCO2 60 H (38-50) mmHg VBG pO2 174 mmHg VBG HCO3 36 mmol/L VBG O2 Saturation > 100.0 % VBG Base Excess 9.1 mEq/L Sodium 136 (136-145) mmol/L Potassium 5.3 H (3.5-5.1) mmol/L Chloride 94 L (98-107) mmol/L Carbon Dioxide 35 H (21-32) mmol/L Anion Gap 7 (3-11) BUN 45 H (6-23) mg/dl Creatinine 1.54 H (0.6-1.4) mg/dl Est Cr Clr Drug Dosing 52.0 ml/min Est GFR ( Amer) 49.0 ml/min Est GFR (Non-Af Amer) 42.3 ml/min BUN/Creatinine Ratio 29.2 H (10-20) Glucose 110 H (70-99(Fasting)) mg/dl Calcium 9.5 (8.5-10.1) mg/dl Total Bilirubin 0.5 (0.2-1.0) mg/dl AST 16 (13-39) U/L ALT 21 (7-52) U/L Alkaline Phosphatase 41 (34-104) U/L Troponin I High Sens 22.1 H (0-20) pg/ml B-Natriuretic Peptide (0-100) pg/ml Total Protein 8.1 (6.0-8.3) gm/dl Albumin 3.8 (3.4-5.0) gm/dl Globulin 4.3 H (2.5-4.0) gm/dl Albumin/Globulin Ratio 0.9 (0.9-2) Lipase 18 (11-82) U/L Procalcitonin (0-0.5) ng/ml SARS-CoV-2 (PCR) (Negative) Influenza Type A (PCR) (Neg) Influenza Type B (PCR) (Neg) RSV (RT-PCR) (Neg) 07/05/22 07/05/22 07/05/22 Range/Units 17:00 17:00 17:07 WBC (4.8-10.8) K/ul RBC (4.70-6.10) M/uL Hgb (14.0-18.0) g/dl Hct (42.0-52.0) % MCV (80.0-100.0) fL MCH (25.0-34.0) pg MCHC (32.0-36.0) g/dL RDW Std Deviation (36.4-46.3) fL RDW Coeff of Tony (11.5-14.5) % Plt Count (130-400) K/uL MPV (9.4-12.4) fL Immature Gran % (Auto) % Neut % (Auto) % Lymph % (Auto) % Lares % (Auto) % Eos % (Auto) % Baso % (Auto) % Neut # (Auto) (1.40-6.50) K/uL Lymph # (Auto) (1.2-3.4) K/uL Lares # (Auto) (0.11-0.59) K/uL Eos # (Auto) (0-0.50) K/uL Baso # (Auto) (0-0.2) K/uL Immature Gran # (Auto) (0.01-0.20) K/uL VBG pH (7.36-7.41) VBG pCO2 (38-50) mmHg VBG pO2 mmHg VBG HCO3 mmol/L VBG O2 Saturation % VBG Base Excess mEq/L Sodium (136-145) mmol/L Potassium (3.5-5.1) mmol/L Chloride (98-107) mmol/L Carbon Dioxide (21-32) mmol/L Anion Gap (3-11) BUN (6-23) mg/dl Creatinine (0.6-1.4) mg/dl Est Cr Clr Drug Dosing ml/min Est GFR ( Amer) ml/min Est GFR (Non-Af Amer) ml/min BUN/Creatinine Ratio (10-20) Glucose (70-99(Fasting)) mg/dl Calcium (8.5-10.1) mg/dl Total Bilirubin (0.2-1.0) mg/dl AST (13-39) U/L ALT (7-52) U/L Alkaline Phosphatase (34-104) U/L Troponin I High Sens (0-20) pg/ml B-Natriuretic Peptide 183 H (0-100) pg/ml Total Protein (6.0-8.3) gm/dl Albumin (3.4-5.0) gm/dl Globulin (2.5-4.0) gm/dl Albumin/Globulin Ratio (0.9-2) Lipase (11-82) U/L Procalcitonin 0.19 (0-0.5) ng/ml SARS-CoV-2 (PCR) NEGATIVE (Negative) Influenza Type A (PCR) Negative (Neg) Influenza Type B (PCR) Negative (Neg) RSV (RT-PCR) Negative (Neg) Administered Medications Discontinued Medications Albuterol (Albuterol 0.083% Nebu Soln 3 Ml Vial) 2.5 mg NEB NOW STA; Protocol Stop: 07/05/22 17:12 Last Admin: 07/05/22 17:33 Dose: 2.5 mg Documented By: MES Furosemide (Furosemide 40 Mg/4 Ml Vial) 40 mg IV NOW STA Stop: 07/05/22 18:03 Last Admin: 07/05/22 18:08 Dose: 40 mg Documented By: MES Furosemide (Furosemide Inj 20 Mg/2 Ml Vial) 20 mg IV ONE STA Stop: 07/05/22 19:36 Last Admin: 07/05/22 20:00 Dose: 20 mg Documented By: LRS Imaging Data Radiologist's Impression: Chest X-Ray 07/05/22 17:06 XR chest 1V portable HISTORY: Chest pain, nonspecific COMPARISON: Chest 03/08/2022. FINDINGS: No pneumothorax. No pleural effusions. The heart remains enlarged. There is mild central pulmonary vascular congestion without overt edema. This has progressed in the interval. Calcifications again noted within the aortic knob. No new focal lung consolidations identified. IMPRESSION: Cardiomegaly with interval progression of the mild congestive change. ACT 112: Negative or not required by law. Electronically signed by: Vijay Reynoso M.D. 07/05/2022 5:33 PM Discharge Plan Visit Data Chief Complaint: Shortness of Breath/Dyspnea Stated Complaint: SOB ED Provider: Chuck Palma Discharge Problem: CHF (congestive heart failure), Hypoxia, Anemia, Elevated troponin Forms Stand Alone Forms: My [facility] iRx Reminder Prescriptions Prescriptions: No Action cholecalciferol (vitamin D3) [Vitamin D3] 25 mcg (1,000 unit) capsule 5,000 unit PO QAM glimepiride 2 mg tablet 2 mg PO BID Qty: 180 3RF metformin 500 mg tablet 500 mg PO BID Qty: 180 3RF Rx Instructions: Administer with food (DME) OneTouch Verio test strips Strip See Rx Instructions .Route Qty: 100 5RF Rx Instructions: check glucose daily 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 Use with 2L continuous O2. gabapentin 300 mg capsule 300 mg PO BID Qty: 180 3RF lisinopril 20 mg tablet 20 mg PO QAM Qty: 90 3RF metoprolol succinate 200 mg tablet extended release 24 hr 200 mg PO QAM Qty: 90 3RF furosemide 40 mg tablet 60 mg PO BID Qty: 90 11RF atorvastatin 10 mg tablet 10 mg PO QAM Qty: 90 3RF potassium chloride 10 mEq capsule, extended release 10 meq PO QAM Qty: 90 3RF Jardiance 10 mg tablet 10 mg PO DAILY Qty: 30 5RF Combivent Respimat 20-100 mcg/actuation mist 1 puff inhalation Q6H magnesium oxide 400 mg magnesium tablet 400 mg PO TID Qty: 270 1RF prednisone 5 mg tablet 5 mg PO HS omeprazole 20 mg capsule,delayed release(DR/EC) 20 mg PO QAM Xeljanz XR 11 mg tablet extended release 24 hr 11 mg PO QAM ldciglpaafsi-dxmzvuhb-ofiayg Tablet 1 tab PO DAILY tramadol 50 mg tablet 50 - 100 mg PO Q4H PRN (Reason: Pain) metolazone 2.5 mg tablet 2.5 mg PO Q3D PRN (Reason: WT GAIN 5 LB IN 3 DAYS.) Rx Instructions: for weight gain greater than 5 pounds in 3 days Referrals Referrals: Robbie Mohr DO [Primary Care Provider] -
[2022-07-05 17:24] LABS: Basophils # (auto) 0.04 K/uL (0-0.2); Basophils % (auto) 0.3 %; Eosinophils # (auto) 0.16 K/uL (0-0.50); Eosinophils % (auto) 1.2 %; Hematocrit (blood only) 37.9 % (42.0-52.0); Hemoglobin 11.5 g/dl (14.0-18.0); Immature Granulocytes # (auto) 0.12 K/uL (0.01-0.20); Immature Granulocytes % (auto) 0.9 %; Lymphocytes # (auto) 1.73 K/uL (1.2-3.4); Lymphocytes % (auto) 13.4 %; Mean Corpuscular Hemoglobin 26.5 pg (25.0-34.0); Mean Corpuscular Hgb Conc 30.3 g/dL (32.0-36.0); Mean Corpuscular Volume 87.3 fL (80.0-100.0); Mean Platelet Volume 9.4 fL (9.4-12.4); Monocytes # (auto) 1.06 K/uL (0.11-0.59); Monocytes % (auto) 8.2 %; Neutrophils # (auto) 9.77 K/uL (1.40-6.50); Platelet Count 330 K/uL (130-400); RDW Coefficient of Variation 17.8 % (11.5-14.5); RDW Standard Deviation 56.7 fL (36.4-46.3); Red Blood Count 4.34 M/uL (4.70-6.10); White Blood Count 12.88 K/ul (4.8-10.8)
[2022-07-05 17:28] LABS: Base Excess VBG 9.1 mEq/L; HCO3 VBG 36 mmol/L; Oxygen Saturation VBG > 100.0 %; PCO2 VBG 60 mmHg (38-50); PO2 VBG 174 mmHg; pH VBG 7.39 (7.36-7.41)
--- NOTE | 2022-07-05 17:34 | XRay Report ---
XR chest 1V portable HISTORY: Chest pain, nonspecific COMPARISON: Chest 03/08/2022. FINDINGS: No pneumothorax. No pleural effusions. The heart remains enlarged. There is mild central pu lmonary vascular congestion without overt edema. This has progressed in the interval. Calcifications again noted within the aortic knob. No new focal lung consolidations identified. IMPRESSION: Cardiomegaly with interval progression of the mild congestive change. ACT 112: Negative or not required by law. Electronically signed by: Vijay Reynoso M.D. 07/05/2022 5:33 PM
[2022-07-05 17:43] LABS: Albumin Level 3.8 gm/dl (3.4-5.0); Bilirubin,Total 0.5 mg/dl (0.2-1.0); Calcium 9.5 mg/dl (8.5-10.1); Potassium 5.3 mmol/L (3.5-5.1)
[2022-07-05 17:50] LABS: Albumin Globulin Ratio 0.9 (0.9-2); BUN Creatinine Ratio 29.2 (10-20); Est GFR (Non-African American) 42.3 ml/min; Globulin 4.3 gm/dl (2.5-4.0); Total Protein 8.1 gm/dl (6.0-8.3)
[2022-07-05 17:54] LABS: Troponin I High Sensitivity 22.1 pg/ml (0-20)
[2022-07-05] MEDS ORDERED: FUROSEMIDE 40 MG/4 ML VIAL IV STA (18:02)
[2022-07-05 18:05] LABS: Influenza A virus by PCR Negative (Neg); Influenza B virus by PCR Negative (Neg); RSV by PCR Negative (Neg); SARS CoV2 RNA(COVID-19) Ceph NEGATIVE (Negative)
--- NOTE | 2022-07-05 18:33 | History & Physical Report ---
Date of Service July 05, 2022 Assessment & Plan (1) Acute on chronic heart failure with preserved ejection fraction: Plan: Will utilize similar dose to previous admission with Lasix 40mg IV BID starting tomorrow with total 60mg IV given in ER in addition to utilizing his PRN metolazone. Low Na diet, fluid restrict 1500ml Strict I&Os Daily weights Continue home dose of metoprolol succinate (2) Acute respiratory failure with hypoxia: Plan: Suspect acute deterioration possibly due to a viral illness making CHF worse Aim O2 sats > 90% Patient has his own BiPAP machine to use at night Procalcitonin negative Sputum culture Monitor WBC. If patient not clinically improving consider CT chest or treatment for bacterial PNA. (3) Diabetes: Plan: HbA1C 7.3 in April Hold metformin and glimepiride Continue Jardiance Start Lantus 10 units QAM Novolog: --Goal BSG Range: Low 110 mg/dL, High 140 mg/dL --Correction Factor: 30 mg/dL/unit --Carbohydrate ratio = 9 g/unit --BSGs ACHS if eating, q6h if npo (4) GERD (gastroesophageal reflux disease): Plan: Switch omeprazole for pantoprazole 40 mg p.o. daily (5) Obesity hypoventilation syndrome: Plan: Continue BiPAP HS (6) Rheumatoid arthritis: Plan: Continue prednisone 5mg PO HS Continue Xeljanz (7) Hypertension: Plan: Continue metoprolol succinate, lisinopril. Lasix as above. Plan VTE Prophylaxis - heparin 5000 units SQ BID Diet - Low Na, heart healthy, T2DM, Fluid restriction 1500ml Disposition - admit to med/tele Admission and Anticipated Discharge Date Admission Date: July 05, 2022 History of Present Illness Chief Complaint: Shortness of breath Primary Care Provider: Robbie Mohr DO Melissa Campbell is a 77 year old male with chronic heart failure with preserved ejection fraction who presents to the ER with shortness of breath. He reports slightly progressively worsening shortness of breath after cold symptoms starting 1.5 weeks ago. Symptoms including nasal congestion, chills, generalized myalgias, productive cough with yellow sputum. He denies any fevers, chills, sinus pain. Feet appear more swollen than usual. Unknown if his weight has increased although he reports taking metolazone once this week due to his weight going up 4 to 5 pounds over 1 day. He is not eating or drinking as much. He usually only uses oxygen as needed on exertion. Currently on 2 LPM O2 sats 85% at rest. Allergies Allergy/AdvReac Type Severity Reaction Status Date / Time codeine Allergy Intermediate HIVES (PT Verified 07/05/22 17:16 DOES NOT USE PERCOCET) Home Medications Medication Instructions Recorded Confirmed Type magnesium oxide 400 mg PO TID #270 tabs 03/03/20 07/05/22 Rx cholecalciferol (vitamin D3) 25 5,000 unit PO QAM 11/04/20 07/05/22 History mcg (1,000 unit) capsule (Vitamin D3) prednisone 5 mg tablet 5 mg PO HS 12/28/20 07/05/22 History glimepiride 2 mg tablet 2 mg PO BID #180 tabs 06/29/21 07/05/22 Rx metformin 500 mg tablet 500 mg PO BID #180 tabs 08/16/21 07/05/22 Rx blood sugar diagnostic (OneTouch #100 ea 09/01/21 06/29/22 Rx Verio test strips) lancets 33 gauge ([employer] ManzanaTouch Delica #100 ea 09/01/21 06/29/22 Rx Lancets) omeprazole 20 mg capsule,delayed 20 mg PO QAM 09/11/21 07/05/22 History release tofacitinib 11 mg tablet,extended 11 mg PO QAM 09/11/21 07/05/22 History release 24 hr (Xeljanz XR) jplthdcusora-zatymwwf-ewddzk tablet 1 tab PO DAILY 09/14/21 07/05/22 History empagliflozin 10 mg tablet 10 mg PO DAILY #30 tabs 01/11/22 07/05/22 Rx (Jardiance) ipratropium 20 mcg-albuterol 100 1 puff inhalation Q6H 03/01/22 07/05/22 History mcg/actuation mist for inhalation (Combivent Respimat) Portable Oxygen #1 ea 03/15/22 06/29/22 Rx gabapentin 300 mg capsule 300 mg PO BID #180 caps 03/26/22 07/05/22 Rx lisinopril 20 mg tablet 20 mg PO QAM #90 tabs 04/09/22 07/05/22 Rx furosemide 40 mg tablet 60 mg PO BID #90 tabs 04/16/22 07/05/22 Rx metoprolol succinate 200 mg 200 mg PO QAM #90 tabs 04/16/22 07/05/22 Rx tablet,extended release 24 hr atorvastatin 10 mg tablet 10 mg PO QAM #90 tabs 05/01/22 07/05/22 Rx potassium chloride 10 mEq 10 meq PO QAM #90 caps 06/25/22 07/05/22 Rx capsule,extended release metolazone 2.5 mg tablet 2.5 mg PO Q3D PRN WT GAIN 5 LB IN 07/05/22 07/05/22 History 3 DAYS. tramadol 50 mg tablet 50 - 100 mg PO Q4H PRN Pain 07/05/22 07/05/22 History Past Med/Surg History Medical History Acute hypoxemic respiratory failure Treated inpatient [facility] 08/28-08/31/21 Acute respiratory failure with hypoxia Acute sinusitis Chronic anemia hgb stable in the ' CKD (chronic kidney disease), stage III COPD (chronic obstructive pulmonary disease) Per remote records, pt/family denies Diabetes NIDDM GERD (gastroesophageal reflux disease) Hyperlipidemia Hypertension MGUS (monoclonal gammopathy of unknown significance) Per records Morbid obesity On home oxygen therapy 2lpm HS + PRN (with walking/exertion during the day) Peripheral neuropathy Psoriatic arthritis Rheumatoid arthritis SCC (squamous cell carcinoma) Sleep apnea Stage 2 chronic kidney disease Surgical History H/O arthroscopy of shoulder Right shoulder H/O excision of mass (09/14/21) Excision Soft Tissue Mass Left Thigh Dr. Maurice History of bilateral knee replacement History of colonoscopy History of surgical removal of skin lesion Hx of appendectomy Hx of cholecystectomy Hx of hernia repair right inguinal hernia repair S/P right knee surgery multiple reconstructive knee surgeries - work related accident in 1996. Family History Father Myocardial infarction Heart disease Mother Cancer Non-Hodgkins lymphoma Sister Ovarian cancer Brother Lung cancer Grandfather Diabetes Other Family history non-contributory Denies family history of Prostate cancer Breast cancer Colorectal cancer Social History Smoking Status: Never smoker Second Hand Exposure: No; Hx Alcohol Use: No Hx Substance Use: No Preferred Language: Greek Communication Ability: Effective Order Management Specialist Required: No Beliefs That Will Affect Care: None marital status: Current Living Situation: Spouse current occupational status: retired How many Children do You have: 3 Other Information That Helps Us Care for You: No Feels Safe at Home: Yes Safety Concerns: Feels Safe At This Time Childhood Exposure to Second-Hand Smoke: No caffeine: Yes during the past year weight has: remained stable Dental Care, Regularly: Yes Physical Activity Frequency: Daily Seatbelt Use: sometimes Sunscreen Use: No Assistive Devices: Cane and Oxygen - Continuous Review of Systems Review of Systems: All systems reviewed & are unremarkable except as noted in HPI & below Dizziness especially on standing started today Physical Exam Constitutional: WD/WN, vitals as above ENMT: external ear and nose normal, oropharynx normal Respiratory: + respiratory distress, + labored breathing, + uses accessory muscles and able to speak in complete sentences Auscultation: + crackles (bibasal); breath sounds present, no diminished lung sounds and no wheezes Cardiovascular: Rate/Rhythm: regular rate and regular rhythm Heart Sounds: no murmur Vessels: + JVD Extremities: normal capillary refill and + pedal edema (1+ b/l pedal edema); no calf tenderness Gastrointestinal (Abdomen): normal bowel sounds, soft, nontender, no hepatosplenomegaly Musculoskeletal: no cyanosis or clubbing, extremities motor strength 5/5 Skin: no rashes, warm and dry Neurologic: moves all extremities and awake; not confused Psychiatric: A+Ox3, euthymic affect Results & Data Results & Data ([facility]) Vital Signs (Past 12 Hours) Vital Signs Temp Pulse Pulse BP BP Pulse Ox O2 Del Method 07/05/22 17:34 90 Nasal Cannula 07/05/22 17:17 61 119/54 L 92 Nasal Cannula 07/05/22 16:59 91 Nasal Cannula 07/05/22 16:59 37.1 C 69 119/54 L 90 Nasal Cannula O2 Flow Rate 07/05/22 17:34 4 07/05/22 17:17 4 07/05/22 16:59 4 07/05/22 16:59 4 Laboratory Results Abnormal lab results 07/05/22 07/05/22 07/05/22 Range/Units 17:00 17:00 17:00 WBC 12.88 H (4.8-10.8) K/ul RBC 4.34 L (4.70-6.10) M/uL Hgb 11.5 L (14.0-18.0) g/dl Hct 37.9 L (42.0-52.0) % MCHC 30.3 L (32.0-36.0) g/dL RDW Std Deviation 56.7 H (36.4-46.3) fL RDW Coeff of Tony 17.8 H (11.5-14.5) % Neut # (Auto) 9.77 H (1.40-6.50) K/uL Sac # (Auto) 1.06 H (0.11-0.59) K/uL VBG pCO2 60 H (38-50) mmHg Potassium 5.3 H (3.5-5.1) mmol/L Chloride 94 L (98-107) mmol/L Carbon Dioxide 35 H (21-32) mmol/L BUN 45 H (6-23) mg/dl Creatinine 1.54 H (0.6-1.4) mg/dl BUN/Creatinine Ratio 29.2 H (10-20) Glucose 110 H (70-99(Fasting)) mg/dl Troponin I High Sens 22.1 H (0-20) pg/ml B-Natriuretic Peptide (0-100) pg/ml Globulin 4.3 H (2.5-4.0) gm/dl 07/05/22 Range/Units 17:00 WBC (4.8-10.8) K/ul RBC (4.70-6.10) M/uL Hgb (14.0-18.0) g/dl Hct (42.0-52.0) % MCHC (32.0-36.0) g/dL RDW Std Deviation (36.4-46.3) fL RDW Coeff of Tony (11.5-14.5) % Neut # (Auto) (1.40-6.50) K/uL Sac # (Auto) (0.11-0.59) K/uL VBG pCO2 (38-50) mmHg Potassium (3.5-5.1) mmol/L Chloride (98-107) mmol/L Carbon Dioxide (21-32) mmol/L BUN (6-23) mg/dl Creatinine (0.6-1.4) mg/dl BUN/Creatinine Ratio (10-20) Glucose (70-99(Fasting)) mg/dl Troponin I High Sens (0-20) pg/ml B-Natriuretic Peptide 183 H (0-100) pg/ml Globulin (2.5-4.0) gm/dl Diagnostic Findings XR chest 1V portable HISTORY: Chest pain, nonspecific COMPARISON: Chest 03/08/2022. FINDINGS: No pneumothorax. No pleural effusions. The heart remains enlarged. There is mild central pulmonary vascular congestion without overt edema. This has progressed in the interval. Calcifications again noted within the aortic kn ob. No new focal lung consolidations identified. IMPRESSION: Cardiomegaly with interval progression of the mild congestive change. Medications Administered ER medications given: DuoNeb 2.5 mg neb Furosemide 40 mg IV ECG Indication: SOB/dyspnea Rate (beats per minute): 80 Rhythm: other (Accelerated junctional rhythm) Findings: no acute ischemic change Comparison ECG Date: from (March 08, 2022) Change: the following changes noted (Junctional rhythm replaced sinus rhythm) Code Status & VTE Plan Code Status DNR/DNI VTE Prophylaxis Plan VTE Prophylaxis will be ordered: Yes PG Care Time/CCT Total # of Minutes Spent Total Time Spent with Patient: Total time spent is greater than 50% in coordination of care (as documented) at patient's floor/unit and/or counseling patient: Coding Level of Care Code 05731 INT INP/OBS CARE 2/55MIN Diagnoses Acute on chronic heart failure with preserved ejection fraction I50.33 Acute respiratory failure with hypoxia J96.01 Diabetes E11.9 GERD (gastroesophageal reflux disease) K21.9 Obesity hypoventilation syndrome E66.2 Rheumatoid arthritis M06.9 Rheumatoid arthritis location: unspecified site Rheumatoid factor presence: unspecified presence Hypertension I10 Hypertension type: unspecified (1) Rheumatoid arthritis Rheumatoid arthritis location: unspecified site Rheumatoid factor presence: unspecified presence Qualified Code(s): M06.9 - Rheumatoid arthritis, unspecified (2) Hypertension Hypertension type: unspecified Qualified Code(s): I10 - Essential (primary) hypertension
[2022-07-05] MEDS ORDERED: FUROSEMIDE INJ 20 MG/2 ML VIAL IV STA (19:35)
[2022-07-05] MEDS ORDERED: IPRATROPIUM BROMIDE/ALBUTEROL respimat INH INH SCH (22:02)
[2022-07-05] MEDS: Ipratropium HFA Inhaler (Combivent Respimat P&T Subs) INH SCH (22:53)
[2022-07-05] MEDS: Albuterol HFA 8 GM Inhaler (Combivent Respimat P&T Subs) INH SCH (22:53)
[2022-07-05] MEDS: predniSONE 5 MG TAB PO SCH (23:08)
[2022-07-05] MEDS: MAGNESIUM OXIDE 400 MG TAB PO SCH (23:08)
[2022-07-05] MEDS: GABAPENTIN 300 MG CAP PO SCH (23:08)
[2022-07-06] MEDS ORDERED: CARBOHYDRATES FOR HYPOGLYCEMIA PO PRN (00:52)
[2022-07-06] MEDS ORDERED: GLUCOSE 10 TAB/TUBE PO PRN (00:52)
[2022-07-06] MEDS ORDERED: GLUCOSE 40% GEL 15 GM TUBE PO PRN (00:52)
[2022-07-06] MEDS ORDERED: GLUCAGON FOR INJ 1 MG VIAL SQ PRN (00:52)
[2022-07-06] MEDS ORDERED: PHARMACY GLYCEMIC MGMT CONSULT PRN (00:52)
[2022-07-06] MEDS ORDERED: DEXTROSE 50% 50 ML SYRINGE IV PRN (00:52)
[2022-07-06 06:27] LABS: Basophils # (auto) 0.04 K/uL (0-0.2); Basophils % (auto) 0.4 %; Eosinophils # (auto) 0.12 K/uL (0-0.50); Eosinophils % (auto) 1.1 %; Hematocrit (blood only) 35.7 % (42.0-52.0); Hemoglobin 10.9 g/dl (14.0-18.0); Immature Granulocytes # (auto) 0.08 K/uL (0.01-0.20); Immature Granulocytes % (auto) 0.7 %; Lymphocytes # (auto) 0.95 K/uL (1.2-3.4); Lymphocytes % (auto) 8.4 %; Mean Corpuscular Hemoglobin 26.3 pg (25.0-34.0); Mean Corpuscular Hgb Conc 30.5 g/dL (32.0-36.0); Mean Corpuscular Volume 86.2 fL (80.0-100.0); Mean Platelet Volume 9.7 fL (9.4-12.4); Monocytes % (auto) 6.2 %; Neutrophils # (auto) 9.45 K/uL (1.40-6.50); Neutrophils % (auto) 83.2 %; Platelet Count 326 K/uL (130-400); RDW Coefficient of Variation 17.6 % (11.5-14.5); RDW Standard Deviation 56.4 fL (36.4-46.3); Red Blood Count 4.14 M/uL (4.70-6.10); White Blood Count 11.34 K/ul (4.8-10.8)
[2022-07-06 06:45] LABS: Calcium 9.1 mg/dl (8.5-10.1); Potassium 5.1 mmol/L (3.5-5.1)
[2022-07-06 06:51] LABS: BUN Creatinine Ratio 29.7 (10-20); Creatinine Clr Calc Pharmacy 53.2 ml/min; Est GFR (African American) 52.7 ml/min; Est GFR (Non-African American) 45.5 ml/min
[2022-07-06] MEDS: Albuterol HFA 8 GM Inhaler (Combivent Respimat P&T Subs) INH SCH ×4 (07:11→19:23)
[2022-07-06] MEDS: Ipratropium HFA Inhaler (Combivent Respimat P&T Subs) INH SCH ×4 (07:11→19:23)
[2022-07-06] MEDS: INSULIN ASPART PER UNIT SC SCH ×4 (08:40→21:15)
[2022-07-06] MEDS: metOLazone 2.5 MG TABLET PO SCH (08:40)
[2022-07-06] MEDS: METOPROLOL SUCC 50MG EXT REL TAB PO SCH (08:41)
[2022-07-06] MEDS: EMPAGLIFLOZIN 10 MG TAB PO SCH (08:41)
[2022-07-06] MEDS: ATORVASTATIN 10 MG TAB PO SCH (08:41)
[2022-07-06] MEDS: FUROSEMIDE 40 MG/4 ML VIAL IV SCH ×2 (08:41→16:34)
[2022-07-06] MEDS: GABAPENTIN 300 MG CAP PO SCH ×2 (08:41→21:16)
[2022-07-06] MEDS: CHOLECALCIFEROL 5,000 UNITS 125 MCG TAB PO SCH (08:41)
[2022-07-06] MEDS: MAGNESIUM OXIDE 400 MG TAB PO SCH ×3 (08:41→21:17)
[2022-07-06] MEDS: MULTIVITAMIN TAB PO SCH (08:41)
[2022-07-06] MEDS: PANTOprazole 40 MG TAB PO SCH (08:42)
[2022-07-06] MEDS: HEPARIN SOD 5,000 UNIT/0.5 ML VIAL SQ SCH ×2 (08:45→21:17)
[2022-07-06] MEDS: LANTUS PER UNIT CHARGE SQ SCH ×2 (08:52→21:15)
--- NOTE | 2022-07-06 11:49 | Pharmacy Report ---
Pharmacy Glycemic Short Note 2 - Date of Service July 06, 2022 - Glycemic Short BSG Results (Last 24 hours): 07/05/22 07/06/22 07/06/22 17:00 05:43 08:00 Glucose 110 H 133 H POC Glucose 120 H OUTPATIENT ANTIDIABETIC REGIMEN: * Empagliflozin 10 mg daily * Glimepiride 2 mg BID * Metformin 500 mg BID ASSESSMENT: * Patient presents to the ED with shortness of breath likely due to acute on chronic heart failure with preserved ejection fraction. Patient is continued on prednisone 5 mg by mouth at bedtime from home. Patient is currently ordered a carb consistent diet. PLAN FOR INPATIENT GLYCEMIC CONTROL: * Hold outpatient oral diabetes medications * Basal insulin * Lantus 10 units SQ BID * Bolus insulin * NovoLog per scale ACHS * Goal Range: Low 110 mg/dL - High 140 mg/dL * Correction Factor: 25 mg/dL/unit * Nutritional / Prandial insulin per carb ratio of 1 unit per 8 grams CHO consumed
[2022-07-06] MEDS: ERYTHROMYCIN OP OINT 1 GM PKT OP SCH ×3 (12:24→21:18)
--- NOTE | 2022-07-06 15:36 | Electrocardiogram Report ---
Test Reason : Blood Pressure : / mmHG Vent. Rate : 080 BPM Atrial Rate : 068 BPM P-R Int : 000 ms QRS Dur : 072 ms QT Int : 380 ms P-R-T Axes : 000 017 069 degrees QTc Int : 438 ms Poor data quality, interpretation may be adversely affected Sinus rhythm Low voltage QRS Abnormal ECG When compared with ECG of 08-MAR-2022 16:05, Vent. rate has increased BY 26 BPM Nonspecific T wave abnormality now evident in Lateral leads Confirmed by Dom Stewart [id number] on 07/06/2022 3:36:28 PM Referred By: REFERRED SELF Confirmed By:Marcus Stewart
--- NOTE | 2022-07-06 18:27 | Hospitalist Progress Note ---
Date of Service July 06, 2022 Assessment & Plan (1) Acute on chronic heart failure with preserved ejection fraction: Plan: Continue Lasix 40 mg twice daily has been metolazone, possible discharge to Low Na diet, fluid restrict 1500ml Strict I&Os Daily weights Continue home dose of metoprolol succinate (2) Acute respiratory failure with hypoxia: Plan: Suspect acute deterioration possibly due to a viral illness making CHF worse Aim O2 sats > 90% Patient has his own BiPAP machine to use at night (3) Diabetes: Plan: HbA1C 7.3 in April metformin and glimepiride Continue Jardiance Start Lantus 10 units QAM Novolog: --Goal BSG Range: Low 110 mg/dL, High 140 mg/dL --Correction Factor: 30 mg/dL/unit --Carbohydrate ratio = 9 g/unit --BSGs ACHS if eating, q6h if npo (4) GERD (gastroesophageal reflux disease): Plan: Switch omeprazole for pantoprazole 40 mg p.o. daily (5) Obesity hypoventilation syndrome: Plan: Continue BiPAP HS (6) Rheumatoid arthritis: Plan: Continue prednisone 5mg PO HS Continue Xeljanz (7) Hypertension: Plan: Continue metoprolol succinate, lisinopril. Lasix as above. (8) Conjunctivitis: Plan: Started on Erthromycin ointment Plan VTE Prophylaxis - heparin 5000 units SQ BID Diet - Low Na, heart healthy, T2DM, Fluid restriction 1500ml Disposition - admit to med/tele Admission and Anticipated Discharge Date Admission Date: July 05, 2022 Subjective Feels better today Physical Exam Constitutional: WD/WN, vitals as above ENMT: external ear and nose normal, oropharynx normal Respiratory: + respiratory distress, + labored breathing, + uses accessory muscles and able to speak in complete sentences Auscultation: + crackles (bibasal); breath sounds present, no diminished lung sounds and no wheezes Cardiovascular: Rate/Rhythm: regular rate and regular rhythm Heart Sounds: no murmur Vessels: + JVD Extremities: normal capillary refill and + pedal edema (1+ b/l pedal edema); no calf tenderness Gastrointestinal (Abdomen): normal bowel sounds, soft, nontender, no hepatosplenomegaly Musculoskeletal: no cyanosis or clubbing, extremities motor strength 5/5 Skin: no rashes, warm and dry Neurologic: moves all extremities and awake; not confused Psychiatric: A+Ox3, euthymic affect Results & Data Results & Data ([facility]) Vital Signs (Past 12 Hours) Vital Signs Temp Pulse Pulse Resp BP Pulse Ox O2 Del Method 07/06/22 16:30 58 L 07/06/22 15:40 36.3 C L 60 20 163/64 H 94 Nasal Cannula 07/06/22 15:35 62 20 93 Nasal Cannula 07/06/22 07:30 Nasal Cannula 07/06/22 07:30 60 07/06/22 10:58 61 18 93 Nasal Cannula 07/06/22 07:19 37.0 C 63 20 136/55 L 93 Nasal Cannula 07/06/22 07:11 67 18 95 Nasal Cannula O2 Flow Rate 07/06/22 16:30 07/06/22 15:40 5 07/06/22 15:35 5 07/06/22 07:30 5 07/06/22 07:30 07/06/22 10:58 5 07/06/22 07:19 5 07/06/22 07:11 5 PG Care Time/CCT Total # of Minutes Spent Total Time Spent with Patient: Total time spent is greater than 50% in coordination of care (as documented) at patient's floor/unit and/or counseling patient: Coding Level of Care Code 35515 SUB INP/OBS CARE 3/50MIN Diagnoses Acute on chronic heart failure with preserved ejection fraction I50.33 Acute respiratory failure with hypoxia J96.01 Diabetes E11.9 GERD (gastroesophageal reflux disease) K21.9 Obesity hypoventilation syndrome E66.2 Rheumatoid arthritis M06.9 Rheumatoid arthritis location: unspecified site Rheumatoid factor presence: unspecified presence Hypertension I10 Hypertension type: unspecified Conjunctivitis H10.9 (1) Rheumatoid arthritis Rheumatoid arthritis location: unspecified site Rheumatoid factor presence: unspecified presence Qualified Code(s): M06.9 - Rheumatoid arthritis, unspecified (2) Hypertension Hypertension type: unspecified Qualified Code(s): I10 - Essential (primary) hypertension
[2022-07-06] MEDS: predniSONE 5 MG TAB PO SCH (21:17)
[2022-07-07] MEDS: ERYTHROMYCIN OP OINT 1 GM PKT OP SCH (04:30)
[2022-07-07] MEDS: metOLazone 2.5 MG TABLET PO SCH (06:04)
[2022-07-07 06:22] LABS: BUN Creatinine Ratio 28.3 (10-20); Calcium 9.1 mg/dl (8.5-10.1); Creatinine Clr Calc Pharmacy 46.2 ml/min; Est GFR (African American) 44.8 ml/min; Est GFR (Non-African American) 38.6 ml/min
[2022-07-07] MEDS: Ipratropium HFA Inhaler (Combivent Respimat P&T Subs) INH SCH (07:15)
[2022-07-07] MEDS: Albuterol HFA 8 GM Inhaler (Combivent Respimat P&T Subs) INH SCH (07:16)
[2022-07-07] MEDS: HEPARIN SOD 5,000 UNIT/0.5 ML VIAL SQ SCH (08:56)
[2022-07-07] MEDS: INSULIN ASPART PER UNIT SC SCH ×2 (09:00→12:33)
[2022-07-07] MEDS: LANTUS PER UNIT CHARGE SQ SCH (09:01)
[2022-07-07] MEDS: MULTIVITAMIN TAB PO SCH (09:02)
[2022-07-07] MEDS: METOPROLOL SUCC 50MG EXT REL TAB PO SCH (09:02)
[2022-07-07] MEDS: PANTOprazole 40 MG TAB PO SCH (09:02)
[2022-07-07] MEDS: EMPAGLIFLOZIN 10 MG TAB PO SCH (09:03)
[2022-07-07] MEDS: FUROSEMIDE 40 MG/4 ML VIAL IV SCH (09:03)
[2022-07-07] MEDS: MAGNESIUM OXIDE 400 MG TAB PO SCH ×2 (09:03→13:18)
[2022-07-07] MEDS: CHOLECALCIFEROL 5,000 UNITS 125 MCG TAB PO SCH (09:03)
[2022-07-07] MEDS: ATORVASTATIN 10 MG TAB PO SCH (09:03)
[2022-07-07] MEDS: GABAPENTIN 300 MG CAP PO SCH (09:03)
[2022-07-07] MEDS ORDERED: ERYTHROMYCIN OP OINT 5 MG/GM 3.5 GM TUBE OP SCH (10:00)
[2022-07-07] MEDS ORDERED: ALBUTEROL HFA 8 GM INHALER INH PRN (13:58)
[2022-07-07] MEDS ORDERED: IPRATROPIUM BROMIDE HFA INHALER INH PRN (13:58)
[2022-07-07] MEDS ORDERED: NYSTATIN POWDER 15GM BTL EXT PRN (14:07)
--- NOTE | 2022-07-09 08:12 | Discharge Summary ---
Date of Service July 09, 2022 Admission HPI Per Admitting Provider Melissa Campbell is a 77 year old male with chronic heart failure with preserved ejection fraction who presents to the ER with shortness of breath. He reports slightly progressively worsening shortness of breath after cold symptoms starting 1.5 weeks ago. Symptoms including nasal congestion, chills, generalized myalgias, productive cough with yellow sputum. He denies any fevers, chills, sinus pain. Feet appear more swollen than usual. Unknown if his weight has increased although he reports taking metolazone once this week due to his weight going up 4 to 5 pounds over 1 day. He is not eating or drinking as much. He usually only uses oxygen as needed on exertion. Currently on 2 LPM O2 sats 85% at rest. Principal Diagnosis CHF exacerbation Discharge Exam Constitutional WD/WN, vitals as above ENMT external ear and nose normal, oropharynx normal Respiratory + respiratory distress, + labored breathing, + uses accessory muscles and able to speak in complete sentences Auscultation: + crackles (bibasal); breath sounds present, no diminished lung sounds and no wheezes Cardiovascular Rate/Rhythm: regular rate and regular rhythm Heart Sounds: no murmur Vessels: + JVD Extremities: normal capillary refill and + pedal edema (1+ b/l pedal edema); no calf tenderness Gastrointestinal (Abdomen) normal bowel sounds, soft, nontender, no hepatosplenomegaly Musculoskeletal no cyanosis or clubbing, extremities motor strength 5/5 Skin no rashes, warm and dry Neurologic moves all extremities and awake; not confused Psychiatric A+Ox3, euthymic affect Discharge Data Allergies Allergy/AdvReac Type Severity Reaction Status Date / Time codeine Allergy Intermediate HIVES (PT Verified 07/05/22 17:16 DOES NOT USE PERCOCET) Consultations 07/05/22 18:08 ED Decision to Admit Stat Hospital Course (1) Acute on chronic heart failure with preserved ejection fraction: Admitted to the hospital for shortness of breath acute on chronic hypoxic respiratory failure evidence of CHF exacerbation and imaging studies and physical exam associated with lower extremity edema, started on IV Lasix, metolazone, assessment above, symptoms significantly improved, currently oxygen requirement is at baseline, possibly triggered by recent upper respiratory infection discharged home on Lasix 40 mg daily (2) Acute respiratory failure with hypoxia: Suspect acute deterioration possibly due to a viral illness making CHF worse Aim O2 sats > 90% Patient has his own BiPAP machine to use at night (3) Diabetes: HbA1C 7.3 in April metformin and glimepiride Continue Jardiance Start Lantus 10 units QAM Novolog: --Goal BSG Range: Low 110 mg/dL, High 140 mg/dL --Correction Factor: 30 mg/dL/unit --Carbohydrate ratio = 9 g/unit --BSGs ACHS if eating, q6h if npo (4) GERD (gastroesophageal reflux disease): Switch omeprazole for pantoprazole 40 mg p.o. daily (5) Obesity hypoventilation syndrome: Continue BiPAP HS (6) Rheumatoid arthritis: Continue prednisone 5mg PO HS Continue Xeljanz (7) Hypertension: Continue metoprolol succinate, lisinopril. Lasix as above. (8) Conjunctivitis: Started on Erthromycin ointment Plan VTE Prophylaxis - heparin 5000 units SQ BID Diet - Low Na, heart healthy, T2DM, Fluid restriction 1500ml Disposition - admit to med/tele Total Time Total Time Spent Total Time Spent (In Minutes): 45 mins Discharge Plan Discharge Items Patient Disposition: Home - Self-Care Reason For Visit: ACUTE ON CHRONIC HFPEF Discharge Diagnosis: CHF exacerbation diastolic type Activity: Resume your previous activity Lifting: None Sexual Activity: When tolerated Exercise/Sports: Gradually increase as tolerated Non-emergency contact: Primary Care Provider and Biochemistry Professor Call non-emergency contact if: you have any medication questions Follow-up/Referrals: Robbie Mohr DO [Primary Care Provider] - 07/13/22 12:00 pm Diet: Carb Consistent or DM2 and Heart Healthy Addtl Attending Provider Instructions: please call your senior software engineer office on Saturday and make an appointment in one week Addtl Mine Technician Provider Instructions: Please check your blood pressure on daily basis and collect the information in a log book and in two weeks visit your primary care doctor for adjustment Pending Studies at Discharge: Yes Studies:: BMP in one week Stand-Alone Forms: [employer], Smoking Cessation Medications and DC Order Prescriptions: Continued cholecalciferol (vitamin D3) [Vitamin D3] 25 mcg (1,000 unit) capsule 5,000 unit PO QAM glimepiride 2 mg tablet 2 mg PO BID Qty: 180 3RF metformin 500 mg tablet 500 mg PO BID Qty: 180 3RF Rx Instructions: Administer with food (DME) OneTouch Verio test strips Strip See Rx Instructions .Route Qty: 100 5RF Rx Instructions: check glucose daily 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 Use with 2L continuous O2. gabapentin 300 mg capsule 300 mg PO BID Qty: 180 3RF metoprolol succinate 200 mg tablet extended release 24 hr 200 mg PO QAM Qty: 90 3RF furosemide 40 mg tablet 60 mg PO BID Qty: 90 11RF atorvastatin 10 mg tablet 10 mg PO QAM Qty: 90 3RF potassium chloride 10 mEq capsule, extended release 10 meq PO QAM Qty: 90 3RF Jardiance 10 mg tablet 10 mg PO DAILY Qty: 30 5RF Combivent Respimat 20-100 mcg/actuation mist 1 puff inhalation Q6H magnesium oxide 400 mg magnesium tablet 400 mg PO TID Qty: 270 1RF prednisone 5 mg tablet 5 mg PO HS omeprazole 20 mg capsule,delayed release(DR/EC) 20 mg PO QAM Xeljanz XR 11 mg tablet extended release 24 hr 11 mg PO QAM [id number] Tablet 1 tab PO DAILY tramadol 50 mg tablet 50 - 100 mg PO Q4H PRN (Reason: Pain) metolazone 2.5 mg tablet 2.5 mg PO Q3D PRN (Reason: WT GAIN 5 LB IN 3 DAYS.) Rx Instructions: for weight gain greater than 5 pounds in 3 days Changed lisinopril 20 mg tablet 40 mg PO QAM Qty: 90 3RF Discharge Orders: Discharge Order (Routine); Ordered 07/07/22 Ordered By: Gordon Martinez Admission Data Admit Date/Time: 07/05/22 19:35 Attending Provider: Gordon Martinez Admit Provider: Amauri Redd Primary Care Provider: Robbie Mohr Other Providers: Amauri Redd Other Interventions: Discharge Summary Assessment (RN) Last Done: 07/07/22 14:40 Coding Level of Care Code HOSP INP/OBS DISCH >30 MIN Diagnoses Acute on chronic heart failure with preserved ejection fraction I50.33 Acute respiratory failure with hypoxia J96.01 Diabetes E11.9 GERD (gastroesophageal reflux disease) K21.9 Obesity hypoventilation syndrome E66.2 Rheumatoid arthritis M06.9 Rheumatoid arthritis location: unspecified site Rheumatoid factor presence: unspecified presence Hypertension I10 Hypertension type: unspecified Conjunctivitis H10.9
== END 2022-07-07 15:45 | disposition home or self-care (01) | DRG 291 ==
LOC: ED 16:52 → SUATTDRO 19:35 → 2N 19:35

== ENCOUNTER 2022-07-08 20:57 | Inpatient (IN) ==
--- NOTE | 2022-07-08 21:26 | Emergency Department Note ---
Impression & Plan Acute respiratory distress, Hypoxia, Pulmonary edema, DUNCAN (acute kidney injury), Pneumonia ED Provider Note NAME: HINA ALEX AGE: 77 SEX: M : 1945 ARRIVES VIA: Ambulance INFORMANT: Patient, EMS personnel, the patient's family members ED PROVIDER(S): Sachin Peters DO CHIEF COMPLAINT: Shortness of breath HPI: Patient is a 77-year-old male who has a history of CHF who presented to the emergency department for an evaluation of shortness of breath. The patient was recently admitted to our facility for congestive heart failure. He did have some changes to his medications including an increase in his blood pressure medication. He was able to be discharged to home. Earlier today he started noticing he was having trouble seeing. He describes decreased vision and a darkness on his overall visual field. The patient denies having any headache or trauma. He states he started having problems breathing. He was evaluated by family members who checked a pulse ox which was very low. They found it to be in the 60% range. They increased his oxygen. He continued to have worsening shortness of breath. He did notice some improvement in his visual issues. His family was concerned he was not doing well anytime he would exert himself and became very short of breath. They called 911 and the patient arrived at the emergency department. He was placed on increasing levels of oxygen including a nonrebreather mask. ROS: See above HPI for pertinent positives & negatives. A total of 10 systems reviewed and were otherwise negative. PAST MEDICAL HISTORY: See Below PAST SURGICAL HISTORY: See Below FAMILY HISTORY: See Below SOCIAL HISTORY: See Below HOME MEDICATIONS: See Below ALLERGIES: See Below VITALS: See Below PHYSICAL EXAMINATION: GENERAL: The patient is awake and alert. He is somewhat anxious appearing. EYES: The conjunctivae are clear. The pupils are round and reactive. EARS, NOSE, MOUTH AND THROAT: The nose is without any evidence of any deformity. NECK: The neck is nontender and supple. RESPIRATORY: Diminished breath sounds are noted throughout. There were rales in both lung louis. Significant conversational dyspnea is appreciated. CARDIOVASCULAR: Regular rate and rhythm noted there no murmurs rubs or gallops normal S1 normal S2. GASTROINTESTINAL: The abdomen is soft. Abdomen is nontender. MUSCULOSKELETAL/EXTREMITIES: There is no evidence of gross deformity full range of motion is noted in the hips and shoulders. SKIN: Pedal edema was noted bilaterally NEUROLOGIC: Patient is awake alert and oriented x3 MEDICAL DECISION MAKING: The patient is a 77-year-old male who presented to the emergency department for an evaluation of difficulty breathing. The patient was found to be in respiratory distress by family members. They alerted 911. The patient arrived via ALS. He received supplemental oxygen prior to arrival. He was found to have hypotension as well as hypoxia. The patient was recently discharged from our facility for similar complaints. He did have an increase in his blood pressure medication. He does take Lasix twice a day. He states has been compliant with his outpatient medications. He describes an episode at home today that I think was consistent with CO2 retention and hypoxia. He was attended to by his family and his oxygen improved. His visual complaints also improved. I discussed patient's laboratory and radiographic studies with him. It is difficult to determine what treatment would help next as the patient was found to have elevation in his creatinine compared to baseline. This is likely due to his increased Lasix. He was also found to have more of an asymmetric pulmonary edema. I discussed this condition with the on-call [facility] hospitalist. They have agreed to evaluate patient in the emergency department for further management and disposition. A an antibiotic was ordered as well given the patient's chest x-ray. Triage Nursing notes reviewed. Prior medical records reviewed Vital Signs: reviewed and remarkable for hypoxia and hypotension Differential diagnosis: Reactive airway disease, pneumonia, pneumothorax, COPD, CHF, infections, cardiac ischemia, pulmonary embolism, musculoskeletal, gastrointestinal, as well as other pathologies. ER treatment provided: See below Diagnostics interpreted by me: ECG: EKG was obtained in the emergency department. My interpretation is normal sinus rhythm at 59 bpm. There were no ectopic beats noted. High lateral T wave abnormalities were noted. This was compared to a tracing from July 05, 2022. No changes were noted. Cardiac Monitoring: An order was placed for continuous cardiac monitoring. The monitor shows a rate of 80 bpm with sinus rhythm. Laboratory studies: As stated above and show below. Imaging studies: See below. Radiographic imaging was reviewed by myself Consultation(s): I discussed this case with Dr. Hedrick who is on-call for the [facility] Hospitalist group. ED COURSE: Procedures: none Critical Care: I have personally spent greater than 40 minutes of critical care time in the direct management of this patient. This includes bedside care, interpretation of diagnostic studies, and testing, discussion with consultants, patient, and family members, and other required patient management activities. This 40 minutes is in excess of all separately billable procedures. Past Med/Surg History Medical History Acute hypoxemic respiratory failure Treated inpatient [facility] 08/28-08/31/21 Acute respiratory failure with hypoxia Acute sinusitis Chronic anemia hgb stable in the ' CKD (chronic kidney disease), stage III COPD (chronic obstructive pulmonary disease) Per remote records, pt/family denies Diabetes NIDDM GERD (gastroesophageal reflux disease) Hyperlipidemia Hypertension MGUS (monoclonal gammopathy of unknown significance) Per records Morbid obesity On home oxygen therapy 2lpm HS + PRN (with walking/exertion during the day) Peripheral neuropathy Psoriatic arthritis Rheumatoid arthritis SCC (squamous cell carcinoma) Sleep apnea Stage 2 chronic kidney disease Surgical History H/O arthroscopy of shoulder Right shoulder H/O excision of mass (09/14/21) Excision Soft Tissue Mass Left Thigh Dr. Maurice History of bilateral knee replacement History of colonoscopy History of surgical removal of skin lesion Hx of appendectomy Hx of cholecystectomy Hx of hernia repair right inguinal hernia repair S/P right knee surgery multiple reconstructive knee surgeries - work related accident in 1996. 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 Beliefs That Will Affect Care: None marital status: Current Living Situation: Spouse current occupational status: retired How many Children do You have: 3 Other Information That Helps Us Care for You: No Feels Safe at Home: Yes Safety Concerns: Feels Safe At This Time Childhood Exposure to Second-Hand Smoke: No caffeine: Yes during the past year weight has: remained stable Dental Care, Regularly: Yes Physical Activity Frequency: Daily Seatbelt Use: sometimes Sunscreen Use: No Assistive Devices: BiPap, Cane and Oxygen - Continuous Allergies Allergies Allergy/AdvReac Type Severity Reaction Status Date / Time codeine Allergy Intermediate HIVES (PT Verified 07/05/22 17:16 DOES NOT USE PERCOCET) Home Meds Home Medications Medication Instructions Recorded Confirmed cholecalciferol (vitamin D3) 25 5,000 unit PO QAM 11/04/20 07/05/22 mcg (1,000 unit) capsule (Vitamin D3) prednisone 5 mg tablet 5 mg PO HS 12/28/20 07/05/22 omeprazole 20 mg capsule,delayed 20 mg PO QAM 09/11/21 07/05/22 release tofacitinib 11 mg tablet,extended 11 mg PO QAM 09/11/21 07/05/22 release 24 hr (Xeljanz XR) vfpgpzmnaqjn-iccmzgjt-urtvnx tablet 1 tab PO DAILY 09/14/21 07/05/22 ipratropium 20 mcg-albuterol 100 1 puff inhalation Q6H 03/01/22 07/05/22 mcg/actuation mist for inhalation (Combivent Respimat) metolazone 2.5 mg tablet 2.5 mg PO Q3D PRN WT GAIN 5 LB IN 07/05/22 07/05/22 3 DAYS. tramadol 50 mg tablet 50 - 100 mg PO Q4H PRN Pain 07/05/22 07/05/22 Previous Rx's Medication Instructions Recorded magnesium oxide 400 mg PO TID #270 tabs 03/03/20 glimepiride 2 mg tablet 2 mg PO BID #180 tabs 06/29/21 metformin 500 mg tablet 500 mg PO BID #180 tabs 08/16/21 blood sugar diagnostic (OneTouch #100 ea 09/01/21 Verio test strips) lancets 33 gauge (OneTouch Delica #100 ea 09/01/21 Lancets) empagliflozin 10 mg tablet 10 mg PO DAILY #30 tabs 01/11/22 (Jardiance) Portable Oxygen #1 ea 03/15/22 gabapentin 300 mg capsule 300 mg PO BID #180 caps 03/26/22 furosemide 40 mg tablet 60 mg PO BID #90 tabs 04/16/22 metoprolol succinate 200 mg 200 mg PO QAM #90 tabs 04/16/22 tablet,extended release 24 hr atorvastatin 10 mg tablet 10 mg PO QAM #90 tabs 05/01/22 potassium chloride 10 mEq 10 meq PO QAM #90 caps 06/25/22 capsule,extended release lisinopril 20 mg tablet 40 mg PO QAM #90 tabs 07/07/22 Results & Data (ED) Vital Signs Vital Signs - 24 hr 07/08/22 20:42 07/08/22 20:42 07/08/22 20:42 Pulse Rate 88 Pulse Rate from SpO2 Sensor Respiratory Rate 24 Respiratory Effort / Characteristics Non-Labored Spontaneous Non-Labored Respiratory Depth Normal Respiratory Pattern Regular Blood Pressure 99/59 L Blood Pressure Mean 72 Pulse Oximetry 94 Oxygen Delivery Method Oxymask Oxymask Oxygen Flow Rate 9 9 Sepsis Recent Fever Within 48 Hours No Sepsis New/Unexplained Change in Mental Status No Sepsis Action Taken by Nursing Physician Notified 07/08/22 21:04 07/08/22 21:05 07/08/22 21:30 Pulse Rate 66 59 L Pulse Rate from SpO2 Sensor 63 59 L Respiratory Rate 20 19 Respiratory Effort / Characteristics Respiratory Depth Respiratory Pattern Blood Pressure 99/59 L Blood Pressure Mean 72 Pulse Oximetry 89 L 93 Oxygen Delivery Method Oxygen Flow Rate Sepsis Recent Fever Within 48 Hours Sepsis New/Unexplained Change in Mental Status Sepsis Action Taken by Nursing 07/08/22 22:00 07/08/22 22:27 07/08/22 22:27 Pulse Rate 59 L 57 L Pulse Rate from SpO2 Sensor 59 L 56 L Respiratory Rate 22 17 Respiratory Effort / Characteristics Respiratory Depth Respiratory Pattern Blood Pressure 127/50 L Blood Pressure Mean 75 Pulse Oximetry 93 94 Oxygen Delivery Method Oxygen Flow Rate Sepsis Recent Fever Within 48 Hours Sepsis New/Unexplained Change in Mental Status Sepsis Action Taken by Nursing 07/08/22 22:30 07/08/22 23:00 Pulse Rate 57 L Pulse Rate from SpO2 Sensor 57 L 58 L Respiratory Rate 14 Respiratory Effort / Characteristics Respiratory Depth Respiratory Pattern Blood Pressure Blood Pressure Mean Pulse Oximetry 93 93 Oxygen Delivery Method Oxygen Flow Rate Sepsis Recent Fever Within 48 Hours Sepsis New/Unexplained Change in Mental Status Sepsis Action Taken by [facility] Medications Current Medication List: was personally reviewed by me Laboratory Data Attestation: I reviewed the patient's lab results. 07/08/22 21:27 07/08/22 21:27 Lab Results 07/08/22 07/08/22 07/08/22 Range/Units 21:27 21:27 21:27 WBC 11.08 H (4.8-10.8) K/ul RBC 4.11 L (4.70-6.10) M/uL Hgb 10.9 L (14.0-18.0) g/dl Hct 35.8 L (42.0-52.0) % MCV 87.1 (80.0-100.0) fL MCH 26.5 (25.0-34.0) pg MCHC 30.4 L (32.0-36.0) g/dL RDW Std Deviation 56.3 H (36.4-46.3) fL RDW Coeff of Tony 17.5 H (11.5-14.5) % Plt Count 379 (130-400) K/uL MPV 9.3 L (9.4-12.4) fL Immature Gran % (Auto) 1.6 % Neut % (Auto) 76.3 % Lymph % (Auto) 9.2 % Atkinson % (Auto) 10.7 % Eos % (Auto) 1.7 % Baso % (Auto) 0.5 % Neut # (Auto) 8.44 H (1.40-6.50) K/uL Lymph # (Auto) 1.02 L (1.2-3.4) K/uL Atkinson # (Auto) 1.19 H (0.11-0.59) K/uL Eos # (Auto) 0.19 (0-0.50) K/uL Baso # (Auto) 0.06 (0-0.2) K/uL Immature Gran # (Auto) 0.18 (0.01-0.20) K/uL PT (9.0-12.0) Seconds INR (0.9-1.1) APTT (21.0-31.0) Seconds PTT Ratio VBG pH (7.36-7.41) VBG pCO2 (38-50) mmHg VBG pO2 mmHg VBG HCO3 mmol/L VBG O2 Saturation % VBG Base Excess mEq/L Sodium 135 L (136-145) mmol/L Potassium 5.1 (3.5-5.1) mmol/L Chloride 90 L (98-107) mmol/L Carbon Dioxide 39 H (21-32) mmol/L Anion Gap 6 (3-11) BUN 52 H (6-23) mg/dl Creatinine 2.48 H D (0.6-1.4) mg/dl Est Cr Clr Drug Dosing 30.2 ml/min Est GFR ( Amer) 27.5 ml/min Est GFR (Non-Af Amer) 23.8 ml/min BUN/Creatinine Ratio 21.0 H (10-20) Glucose 79 (70-99(Fasting)) mg/dl Calcium 8.9 (8.5-10.1) mg/dl Phosphorus (2.5-4.9) mg/dl Magnesium 2.5 H (1.7-2.4) mg/dl Total Bilirubin 0.5 (0.2-1.0) mg/dl AST 92 H (13-39) U/L ALT 69 H (7-52) U/L Alkaline Phosphatase 39 (34-104) U/L Troponin I High Sens 32.1 H (0-20) pg/ml B-Natriuretic Peptide 89 (0-100) pg/ml Total Protein 7.6 (6.0-8.3) gm/dl Albumin 3.6 (3.4-5.0) gm/dl Globulin 4.0 (2.5-4.0) gm/dl Albumin/Globulin Ratio 0.9 (0.9-2) Procalcitonin (0-0.5) ng/ml Random Cortisol mcg/dl SARS-CoV-2 (PCR) (Negative) Influenza Type A (PCR) (Neg) Influenza Type B (PCR) (Neg) RSV (RT-PCR) (Neg) 07/08/22 07/08/22 07/08/22 Range/Units 21:27 21:27 21:27 WBC (4.8-10.8) K/ul RBC (4.70-6.10) M/uL Hgb (14.0-18.0) g/dl Hct (42.0-52.0) % MCV (80.0-100.0) fL MCH (25.0-34.0) pg MCHC (32.0-36.0) g/dL RDW Std Deviation (36.4-46.3) fL RDW Coeff of Tony (11.5-14.5) % Plt Count (130-400) K/uL MPV (9.4-12.4) fL Immature Gran % (Auto) % Neut % (Auto) % Lymph % (Auto) % Atkinson % (Auto) % Eos % (Auto) % Baso % (Auto) % Neut # (Auto) (1.40-6.50) K/uL Lymph # (Auto) (1.2-3.4) K/uL Atkinson # (Auto) (0.11-0.59) K/uL Eos # (Auto) (0-0.50) K/uL Baso # (Auto) (0-0.2) K/uL Immature Gran # (Auto) (0.01-0.20) K/uL PT 10.9 (9.0-12.0) Seconds INR 1.0 (0.9-1.1) APTT 26.3 (21.0-31.0) Seconds PTT Ratio 1.0 VBG pH (7.36-7.41) VBG pCO2 (38-50) mmHg VBG pO2 mmHg VBG HCO3 mmol/L VBG O2 Saturation % VBG Base Excess mEq/L Sodium (136-145) mmol/L Potassium (3.5-5.1) mmol/L Chloride (98-107) mmol/L Carbon Dioxide (21-32) mmol/L Anion Gap (3-11) BUN (6-23) mg/dl Creatinine (0.6-1.4) mg/dl Est Cr Clr Drug Dosing ml/min Est GFR ( Amer) ml/min Est GFR (Non-Af Amer) ml/min BUN/Creatinine Ratio (10-20) Glucose (70-99(Fasting)) mg/dl Calcium (8.5-10.1) mg/dl Phosphorus (2.5-4.9) mg/dl Magnesium (1.7-2.4) mg/dl Total Bilirubin (0.2-1.0) mg/dl AST (13-39) U/L ALT (7-52) U/L Alkaline Phosphatase (34-104) U/L Troponin I High Sens (0-20) pg/ml B-Natriuretic Peptide (0-100) pg/ml Total Protein (6.0-8.3) gm/dl Albumin (3.4-5.0) gm/dl Globulin (2.5-4.0) gm/dl Albumin/Globulin Ratio (0.9-2) Procalcitonin (0-0.5) ng/ml Random Cortisol 8.49 mcg/dl SARS-CoV-2 (PCR) NEGATIVE (Negative) Influenza Type A (PCR) Negative (Neg) Influenza Type B (PCR) Negative (Neg) RSV (RT-PCR) Negative (Neg) 07/08/22 07/08/22 07/08/22 Range/Units 23:08 23:09 23:09 WBC (4.8-10.8) K/ul RBC (4.70-6.10) M/uL Hgb (14.0-18.0) g/dl Hct (42.0-52.0) % MCV (80.0-100.0) fL MCH (25.0-34.0) pg MCHC (32.0-36.0) g/dL RDW Std Deviation (36.4-46.3) fL RDW Coeff of Tony (11.5-14.5) % Plt Count (130-400) K/uL MPV (9.4-12.4) fL Immature Gran % (Auto) % Neut % (Auto) % Lymph % (Auto) % Atkinson % (Auto) % Eos % (Auto) % Baso % (Auto) % Neut # (Auto) (1.40-6.50) K/uL Lymph # (Auto) (1.2-3.4) K/uL Atkinson # (Auto) (0.11-0.59) K/uL Eos # (Auto) (0-0.50) K/uL Baso # (Auto) (0-0.2) K/uL Immature Gran # (Auto) (0.01-0.20) K/uL PT (9.0-12.0) Seconds INR (0.9-1.1) APTT (21.0-31.0) Seconds PTT Ratio VBG pH 7.31 L (7.36-7.41) VBG pCO2 82 H (38-50) mmHg VBG pO2 43 mmHg VBG HCO3 41 mmol/L VBG O2 Saturation 69.4 % VBG Base Excess 11.4 mEq/L Sodium (136-145) mmol/L Potassium (3.5-5.1) mmol/L Chloride (98-107) mmol/L Carbon Dioxide (21-32) mmol/L Anion Gap (3-11) BUN (6-23) mg/dl Creatinine (0.6-1.4) mg/dl Est Cr Clr Drug Dosing ml/min Est GFR ( Amer) ml/min Est GFR (Non-Af Amer) ml/min BUN/Creatinine Ratio (10-20) Glucose (70-99(Fasting)) mg/dl Calcium (8.5-10.1) mg/dl Phosphorus 4.0 (2.5-4.9) mg/dl Magnesium (1.7-2.4) mg/dl Total Bilirubin (0.2-1.0) mg/dl AST (13-39) U/L ALT (7-52) U/L Alkaline Phosphatase (34-104) U/L Troponin I High Sens (0-20) pg/ml B-Natriuretic Peptide (0-100) pg/ml Total Protein (6.0-8.3) gm/dl Albumin (3.4-5.0) gm/dl Globulin (2.5-4.0) gm/dl Albumin/Globulin Ratio (0.9-2) Procalcitonin 0.65 H (0-0.5) ng/ml Random Cortisol mcg/dl SARS-CoV-2 (PCR) (Negative) Influenza Type A (PCR) (Neg) Influenza Type B (PCR) (Neg) RSV (RT-PCR) (Neg) Administered Medications Lactated Ringer's (Lr) 1,000 mls @ 80 mls/hr IV .[id number] [facility] Stop: 07/09/22 12:27 Last Admin: 07/09/22 00:57 Dose: 80 mls/hr Documented By: QG Cefepime HCl 2,000 mg/ Syringe 20 mls @ 5 mls/min IV Q12H [facility]; Protocol Stop: 07/16/22 00:59 Last Admin: 07/09/22 01:12 Dose: 5 mls/min Documented By: QG Discontinued Medications Piperacillin Sod/Tazobactam Sod (Zosyn) 4.5 gm in 120 mls @ 240 mls/hr IV NOW ONE Stop: 07/08/22 23:05 Last Admin: 07/09/22 00:40 Dose: Not Given Documented By: QG Azithromycin 500 mg/ Dextrose 255 mls @ 127.5 mls/hr IV NOW STA Stop: 07/09/22 01:57 Last Infusion: 07/09/22 03:36 Dose: 0 mls/hr Documented By: Admin: 07/09/22 00:57 Dose: 127.5 mls/hr Documented By: CRICKET Imaging Data Attestation: I personally reviewed and interpreted this imaging study as follows: My Impression: 1 view chest x-ray was obtained in the emergency department. My interpretation is pulmonary edema with cardiomegaly. The pulmonary edema appears to be somewhat asymmetric with left greater than right findings. This was compared to a chest x-ray from July 05, 2022. No significant changes were noted. Radiologist's Impression: Chest CT 07/08/22 22:36 CT chest diagnostic wo con CT DOSE: 1204.21 mGy.cm HISTORY: Shortness of breath. TECHNIQUE: Multiaxial CT images of the chest were performed without contrast. A dose lowering technique was utilized adhering to the principles of ALARA. COMPARISON: Chest CTA 03/08/2022. FINDINGS: No mediastinal or hilar lymphadenopathy. The heart remains mildly enlarged. Small calcification within the right hepatic lobe. The visualized spleen and adrenal glands are unremarkable. Moderate calcified plaque within the coronary arteries. Normal caliber thoracic aorta. No acute fractures identified. Bilateral lower lobe airspace opacities, left greater than right. This favors atelectasis. A left basilar pneumonia could also have a similar appearance. Mild respiratory motion artifact. No pneumothorax. The central airways are patent. Stable 4 mm subpleural nodule along the right minor fissure. This is likely benign. Stable 6 mm left upper lobe nodule on image 77. IMPRESSION: 1. Bilateral lower lobe airspace opacities, left greater than right. This favors atelectasis. A left basilar pneumonia could also have a similar appearance. 2. Stable mild cardiomegaly. 3. Stable subcentimeter pulmonary nodules with the largest in the left upper lobe measuring 6 mm. ACT 112: Negative or not required by law. Electronically signed by: Vijay Reynoso M.D. 07/09/2022 7:21 AM Discharge Plan Visit Data Chief Complaint: Shortness of Breath/Dyspnea ED Provider: Sachin Peters Discharge Problem: Acute respiratory distress, Hypoxia, Pulmonary edema, DUNCAN (acute kidney injury), Pneumonia Patient Disposition: Admitted As Inpatient Discharge Instructions Interventions: ED Discharge Assessment Last Done: 07/08/22 23:39
[2022-07-08 21:49] LABS: Basophils # (auto) 0.06 K/uL (0-0.2); Basophils % (auto) 0.5 %; Eosinophils # (auto) 0.19 K/uL (0-0.50); Eosinophils % (auto) 1.7 %; Hematocrit (blood only) 35.8 % (42.0-52.0); Hemoglobin 10.9 g/dl (14.0-18.0); Immature Granulocytes # (auto) 0.18 K/uL (0.01-0.20); Immature Granulocytes % (auto) 1.6 %; Lymphocytes # (auto) 1.02 K/uL (1.2-3.4); Lymphocytes % (auto) 9.2 %; Mean Corpuscular Hemoglobin 26.5 pg (25.0-34.0); Mean Corpuscular Hgb Conc 30.4 g/dL (32.0-36.0); Mean Corpuscular Volume 87.1 fL (80.0-100.0); Mean Platelet Volume 9.3 fL (9.4-12.4); Monocytes # (auto) 1.19 K/uL (0.11-0.59); Monocytes % (auto) 10.7 %; Neutrophils # (auto) 8.44 K/uL (1.40-6.50); Neutrophils % (auto) 76.3 %; Platelet Count 379 K/uL (130-400); RDW Coefficient of Variation 17.5 % (11.5-14.5); RDW Standard Deviation 56.3 fL (36.4-46.3); Red Blood Count 4.11 M/uL (4.70-6.10); White Blood Count 11.08 K/ul (4.8-10.8)
[2022-07-08 22:03] LABS: Partial Thromboplastin Time 26.3 Seconds (21.0-31.0); Prothrombin Time 10.9 Seconds (9.0-12.0)
[2022-07-08 22:05] LABS: Albumin Level 3.6 gm/dl (3.4-5.0); Bilirubin,Total 0.5 mg/dl (0.2-1.0); Calcium 8.9 mg/dl (8.5-10.1); Magnesium 2.5 mg/dl (1.7-2.4); Potassium 5.1 mmol/L (3.5-5.1)
[2022-07-08 22:11] LABS: Albumin Globulin Ratio 0.9 (0.9-2); Creatinine Clr Calc Pharmacy 30.2 ml/min; Est GFR (African American) 27.5 ml/min; Est GFR (Non-African American) 23.8 ml/min; Total Protein 7.6 gm/dl (6.0-8.3)
[2022-07-08 22:16] LABS: Troponin I High Sensitivity 32.1 pg/ml (0-20)
[2022-07-08 22:29] LABS: Influenza A virus by PCR Negative (Neg); Influenza B virus by PCR Negative (Neg); RSV by PCR Negative (Neg); SARS CoV2 RNA(COVID-19) Ceph NEGATIVE (Negative)
[2022-07-08] MEDS ORDERED: PIPERACILLIN/TAZOBACTAM 4.5 GM/120 ML BAG IV ONE (22:36)
--- NOTE | 2022-07-08 23:16 | History & Physical Report ---
Date of Service July 08, 2022 Assessment & Plan (1) Acute respiratory failure with hypoxia: Plan: 77yo male with history of obesity hypoventilation syndrome, HFpEF, LIDYA, RA, DM and GERD presenting with acute hypoxic. CT of the chest is suggestive of pneumonia. Patient is presently saturating well on oxime mask. No obvious respiratory distress. Suspect that his dizziness and blurry vision is secondary to hypoxia patient reports that the symptoms have resolved. Will admit to medical with telemetry Follow cultures sent from ER Check MRSA nares Antibiotic coverage with Zosyn and azithromycin Pulmonary toiletflutter valve, incentive spirometry Guaifenesin Nebs every 4 hours as needed (2) CKD (chronic kidney disease), stage III: Plan: Patient with mild increase in creatinine from baseline. Was diuresed during last hospital admission. Also had his lisinopril increased to 40 mg daily. He did only receive 1 dose of 40 mg, however this morning. Patient does appear slightly clinically dry on exam Gentle IV fluids with LR at 80 mL/h x 1 L Avoid nephrotoxic agents Renal dosing were needed (3) Obesity hypoventilation syndrome: Plan: Chronic. BiPAP nightly. Patient presently does not flow oxygen through his BiPAP at night. Perform continuous pulse oximetry. (4) Type 2 diabetes mellitus with stage 2 chronic kidney disease and hypertension: Plan: On oral agents Hold oral agents Lantus 10 units twice daily Insulin sliding scale Goal blood sugar 110-140 (5) Rheumatoid arthritis: Plan: Patient follows with rheumatology. He is on chronic prednisone 5 mg p.o. daily Continue prednisone 5 mg p.o. daily Low threshold for stress dose steroids if patient becomes hypotensive (6) Hypertension: Plan: Patient with borderline low blood pressure upon arrival Gentle IV fluids as above with 1 L of LR We will hold metoprolol and lisinopril for now we will continue to monitor blood pressure We will hold Lasix for now (7) Hyperlipidemia: Plan: Chronic. Stable. Continue atorvastatin (8) GERD (gastroesophageal reflux disease): Plan: Chronic. Stable. Continue omeprazole FENLR at 80 mL/h x 1 L, Heparin for DVT prophylaxis, CodeDNR/DNI per discussion with patient Dispositionadmit to medical telemetry History of Present Illness Chief Complaint: hypoxia, blurry vision Primary Care Provider: Robbie Mohr DO Sarwat Campbell is a 77yo male with history of LIDYA, Obesity hypoventilation syndrome and chronic hypoxemic respiratory failure on supplemental O2 as needed at home - patient presents today from home with episode of acute hypoxia. Patient was recently admitted to [facility] from 07/05/22 - 07/07/22 with 1.5 weeks of progressive dyspnea and URI symptoms. Patient was treated for acute exacerbation of CHF in the setting of presumed viral URI. He was diuresed with Lasix 40mg IV BID as well as Metolazone. Patient felt well on the day of discharge. His Lisinopril was increased from 20mg po daily to 40mg po daily. Prior to last admission patient was using supplemental O2 - 2L by UT PRN. He also wears BiPAP at night. He has a portable O2 concentrator that goes up to 5L. Patient returned home without difficulty. His states that over the last day, however, he has been having a continued deep, moist sounding cough with inability to clear sputum as well as episodes of confusion. Today he had an episode of blurry vision and dizziness. At that time his granddaughter checked his oxygen level and it was 60%. reports that his SpO2 went as low as 45%. Family placed him on his CPAP machine and called EMS. Patient denies fever, chills, nausea, vomiting, diarrhea or constipation. He did have some dizziness earlier today but denies syncope or falls. He denies chest pain or wheeze. Denies orthopnea, edema or weight gain. Upon arrival to the ER patient hypoxic at 82%, blood pressure 99/59. Patient is presently on Oxymask 9L/m with adequate saturation of 94%. ER Course: Zosyn 4.5gm at 00:40 Allergies Allergy/AdvReac Type Severity Reaction Status Date / Time codeine Allergy Intermediate HIVES (PT Verified 07/05/22 17:16 DOES NOT USE PERCOCET) Home Medications Medication Instructions Recorded Confirmed Type magnesium oxide 400 mg PO TID #270 tabs 03/03/20 07/05/22 Rx cholecalciferol (vitamin D3) 25 5,000 unit PO QAM 11/04/20 07/05/22 History mcg (1,000 unit) capsule (Vitamin D3) prednisone 5 mg tablet 5 mg PO HS 12/28/20 07/05/22 History glimepiride 2 mg tablet 2 mg PO BID #180 tabs 06/29/21 07/05/22 Rx metformin 500 mg tablet 500 mg PO BID #180 tabs 08/16/21 07/05/22 Rx blood sugar diagnostic (OneTouch #100 ea 09/01/21 06/29/22 Rx Verio test strips) lancets 33 gauge (YessiTouch Delica #100 ea 09/01/21 06/29/22 Rx Lancets) omeprazole 20 mg capsule,delayed 20 mg PO QAM 09/11/21 07/05/22 History release tofacitinib 11 mg tablet,extended 11 mg PO QAM 09/11/21 07/05/22 History release 24 hr (Xeljanz XR) xwvnavvvaklf-eypxzntw-auilht tablet 1 tab PO DAILY 09/14/21 07/05/22 History empagliflozin 10 mg tablet 10 mg PO DAILY #30 tabs 01/11/22 07/05/22 Rx (Jardiance) ipratropium 20 mcg-albuterol 100 1 puff inhalation Q6H 03/01/22 07/05/22 History mcg/actuation mist for inhalation (Combivent Respimat) Portable Oxygen #1 ea 03/15/22 06/29/22 Rx gabapentin 300 mg capsule 300 mg PO BID #180 caps 03/26/22 07/05/22 Rx furosemide 40 mg tablet 60 mg PO BID #90 tabs 04/16/22 07/05/22 Rx metoprolol succinate 200 mg 200 mg PO QAM #90 tabs 04/16/22 07/05/22 Rx tablet,extended release 24 hr atorvastatin 10 mg tablet 10 mg PO QAM #90 tabs 05/01/22 07/05/22 Rx potassium chloride 10 mEq 10 meq PO QAM #90 caps 06/25/22 07/05/22 Rx capsule,extended release metolazone 2.5 mg tablet 2.5 mg PO Q3D PRN WT GAIN 5 LB IN 07/05/22 07/05/22 History 3 DAYS. tramadol 50 mg tablet 50 - 100 mg PO Q4H PRN Pain 07/05/22 07/05/22 History lisinopril 20 mg tablet 40 mg PO QAM #90 tabs 07/07/22 07/05/22 Rx Past Med/Surg History Medical History Acute hypoxemic respiratory failure Treated inpatient [facility] 08/28-08/31/21 Acute respiratory failure with hypoxia Acute sinusitis Chronic anemia hgb stable in the 11's CKD (chronic kidney disease), stage III COPD (chronic obstructive pulmonary disease) Per remote records, pt/family denies Diabetes NIDDM GERD (gastroesophageal reflux disease) Hyperlipidemia Hypertension MGUS (monoclonal gammopathy of unknown significance) Per records Morbid obesity On home oxygen therapy 2lpm HS + PRN (with walking/exertion during the day) Peripheral neuropathy Psoriatic arthritis Rheumatoid arthritis SCC (squamous cell carcinoma) Sleep apnea Stage 2 chronic kidney disease Surgical History H/O arthroscopy of shoulder Right shoulder H/O excision of mass (09/14/21) Excision Soft Tissue Mass Left Thigh Dr. Maurice History of bilateral knee replacement History of colonoscopy History of surgical removal of skin lesion Hx of appendectomy Hx of cholecystectomy Hx of hernia repair right inguinal hernia repair S/P right knee surgery multiple reconstructive knee surgeries - work related accident in 1996. 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: No Beliefs That Will Affect Care: None marital status: Current Living Situation: Spouse current occupational status: retired How many Children do You have: 3 Other Information That Helps Us Care for You: No Feels Safe at Home: Yes Safety Concerns: Feels Safe At This Time Childhood Exposure to Second-Hand Smoke: No caffeine: Yes during the past year weight has: remained stable Dental Care, Regularly: Yes Physical Activity Frequency: Daily Seatbelt Use: sometimes Sunscreen Use: No Assistive Devices: BiPap, Cane and Oxygen - Continuous Review of Systems Review of Systems: All systems reviewed & are unremarkable except as noted in HPI & below Physical Exam Physical Exam: General: patient resting comfortably, NAD, non-toxic in appearance, AA&O x 4, Oxymask in place Skin: warm, dry, intact, no rashes or lesions HEENT: NC/AT, PERRL, EOMI, anicteric sclera, conjunctiva without injection, external ear normal to inspection and nontender, nares patent, moist mucus membranes, dentition intact, no oropharyngeal lesions, neck supple, trachea midline, no LAD, no thyromegaly, no JVD Heart: +S1/S2, regular, no m/r/g Lungs: equal air entry bilaterally, +crackles present in left lung base and mid-lung field, mild crackles present in right lung base, no rhonchi or wheezes Abd: Obese, +BS, soft, NT/ND, no masses/organomegaly/ascites Ext: warm, 2+ pulses in UE/LE bilaterally, no clubbing/cyanosis Neuro: nonfocal, patient AA&O x 4, speech intact, no facial droop, moving all extremities on command with equal strength 5/5 Results & Data Results & Data ([facility]) Vital Signs (Past 12 Hours) Vital Signs Pulse Resp BP Pulse Ox O2 Del Method O2 Flow Rate 07/08/22 20:42 Oxymask 9 07/08/22 20:42 88 24 99/59 L 94 Oxymask 9 Laboratory Results Laboratory Results WBC 11.08 K/ul (4.8-10.8) H 07/08/22 21: RBC 4.11 M/uL (4.70-6.10) L 07/08/22 21:27 Hgb 10.9 g/dl (14.0-18.0) L 07/08/22 21: Hct 35.8 % (42.0-52.0) L 07/08/22 21: MCV 87.1 fL (80.0-100.0) 07/08/22 21: MCH 26.5 pg (25.0-34.0) 07/08/22 21: MCHC 30.4 g/dL (32.0-36.0) L 07/08/22 21: RDW Std Deviation 56.3 fL (36.4-46.3) H 07/08/22 21: RDW Coeff of Tony 17.5 % (11.5-14.5) H 07/08/22 21: Plt Count 379 K/uL (130-400) 07/08/22 21: MPV 9.3 fL (9.4-12.4) L 07/08/22: Immature Gran % (Auto) 1.6 % 07/08/22: Neut % (Auto) 76.3 % 07/08/22: Lymph % (Auto) 9.2 % 07/08/22: [place] % (Auto) 10.7 % 07/08/22: Eos % (Auto) 1.7 % 07/08/22: Baso % (Auto) 0.5 % 07/08/22: Neut # (Auto) 8.44 K/uL (1.40-6.50) H 07/08/22: Lymph # (Auto) 1.02 K/uL (1.2-3.4) L 07/08/22: [place]eker # (Auto) 1.19 K/uL (0.11-0.59) H 07/08/22: Eos # (Auto) 0.19 K/uL (0-0.50) 07/08/22: Baso # (Auto) 0.06 K/uL (0-0.2) 07/08/22: Immature Gran # (Auto) 0.18 K/uL (0.01-0.20) 07/08/22: PT 10.9 Seconds (9.0-12.0) 07/08/22: INR 1.0 (0.9-1.1) 07/08/22: APTT 26.3 Seconds (21.0-31.0) 07/08/22: PTT Ratio 1.0 07/08/22: VBG pH 7.31 (7.36-7.41) L 07/08/22 23:08 VBG pCO2 82 mmHg (38-50) H 07/08/22 23: VBG pO2 43 mmHg 07/08/22 23: VBG HCO3 41 mmol/L 07/08/22 23:08 VBG O2 Saturation 69.4 % 07/08/22 23:08 VBG Base Excess 11.4 mEq/L 07/08/22 23:08 Sodium 135 mmol/L (136-145) L 07/08/22 21:27 Potassium 5.1 mmol/L (3.5-5.1) 07/08/22 21: Chloride 90 mmol/L (98-107) L 07/08/22 21:27 Carbon Dioxide 39 mmol/L (21-32) H 07/08/22 21:27 Anion Gap 6 (3-11) 07/08/22 21:27 BUN 52 mg/dl (6-23) H 07/08/22 21:27 Creatinine 2.48 mg/dl (0.6-1.4) H D 07/08/22 21:27 Est Cr Clr Drug Dosing 30.2 ml/min 07/08/22 21: Est GFR ( Amer) 27.5 ml/min 07/08/22 21: Est GFR (Non-Af Amer) 23.8 ml/min 07/08/22 21: BUN/Creatinine Ratio 21.0 (10-20) H 07/08/22 21: Glucose 79 mg/dl (70-99(Fasting)) 07/08/22 21: Calcium 8.9 mg/dl (8.5-10.1) 07/08/22 21: Phosphorus 4.0 mg/dl (2.5-4.9) 07/08/22 23:09 Magnesium 2.5 mg/dl (1.7-2.4) H 07/08/22: Total Bilirubin 0.5 mg/dl (0.2-1.0) 07/08/22 21: AST 92 U/L (13-39) H 07/08/22 21: ALT 69 U/L (7-52) H 07/08/22 21:27 Alkaline Phosphatase 39 U/L (34-104) 07/08/22 21: Troponin I High Sens 32.1 pg/ml (0-20) H 07/08/22 21: B-Natriuretic Peptide 89 pg/ml (0-100) 07/08/22 21: Total Protein 7.6 gm/dl (6.0-8.3) 07/08/22 21: Albumin 3.6 gm/dl (3.4-5.0) 07/08/22 21:27 Globulin 4.0 gm/dl (2.5-4.0) 07/08/22 21:27 Albumin/Globulin Ratio 0.9 (0.9-2) 07/08/22 21: Procalcitonin 0.65 ng/ml (0-0.5) H 07/08/22 23:09 Random Cortisol 8.49 mcg/dl 07/08/22 21:27 SARS-CoV-2 (PCR) NEGATIVE (Negative) 07/08/22 21:27 Influenza Type A (PCR) Negative (Neg) 07/08/22 21:27 Influenza Type B (PCR) Negative (Neg) 07/08/22 21: RSV (RT-PCR) Negative (Neg) 07/08/22 21: Diagnostic Findings CT Chest: Per stat raddense dependent atelectasis noted more prominent on the left than on the right. Basilar pneumonia not excluded in the correct clinical setting. Bronchial wall thickening may reflect nonspecific bronchial inflammation or reactive airway disease. Negative for CHF Heart size normal Moderate sleep prominent coronary artery calcification noted PG Care Time/CCT Total # of Minutes Spent Total Time Spent with Patient: Total time spent is greater than 50% in coordination of care (as documented) at patient's floor/unit and/or counseling patient: Coding Level of Care Code 90543 INT INP/OBS CARE 3/75MIN Diagnoses Acute respiratory failure with hypoxia J96.01 CKD (chronic kidney disease), stage III N18.30 Obesity hypoventilation syndrome E66.2 Type 2 diabetes mellitus with stage 2 chronic kidney disease and hypertension E11.22; I12.9; N18.2 Rheumatoid arthritis M06.9 Rheumatoid arthritis location: unspecified site Rheumatoid factor presence: unspecified presence Hypertension I10 Hypertension type: unspecified Hyperlipidemia E78.5 GERD (gastroesophageal reflux disease) K21.9 (1) Rheumatoid arthritis Rheumatoid arthritis location: unspecified site Rheumatoid factor presence: unspecified presence Qualified Code(s): M06.9 - Rheumatoid arthritis, unspecified (2) Hypertension Hypertension type: unspecified Qualified Code(s): I10 - Essential (primary) hypertension
[2022-07-08 23:31] LABS: Base Excess VBG 11.4 mEq/L; HCO3 VBG 41 mmol/L; Oxygen Saturation VBG 69.4 %; PCO2 VBG 82 mmHg (38-50); PO2 VBG 43 mmHg; pH VBG 7.31 (7.36-7.41)
[2022-07-08] MEDS ORDERED: ACETAMINOPHEN 325 MG TAB PO PRN (23:58)
[2022-07-08] MEDS ORDERED: CARBOHYDRATES FOR HYPOGLYCEMIA PO PRN (23:58)
[2022-07-08] MEDS ORDERED: GLUCOSE 10 TAB/TUBE PO PRN (23:58)
[2022-07-08] MEDS ORDERED: POLYETHYLENE (MIRALAX) 17 GM PACK PO PRN (23:58)
[2022-07-08] MEDS ORDERED: AZITHROMYCIN 500 MG in DEXTROSE 5% 250 ML IV STA (23:58)
[2022-07-08] MEDS ORDERED: GLUCAGON FOR INJ 1 MG VIAL SQ PRN (23:58)
[2022-07-08] MEDS ORDERED: LACTATED RINGER'S 1,000 ML IV SCH (23:58)
[2022-07-08] MEDS ORDERED: GLUCOSE 40% GEL 15 GM TUBE PO PRN (23:58)
[2022-07-08] MEDS ORDERED: DEXTROSE 50% 50 ML SYRINGE IV PRN (23:58)
[2022-07-09] MEDS ORDERED: ALBUT/IPRATROP 3MG/0.5MG NEB 3 ML VIAL NEB PRN (00:54)
[2022-07-09] MEDS: CEFEPIME 2,000 MG in SYRINGE 0 ML IV SCH ×2 (01:12→13:17)
[2022-07-09] MEDS ORDERED: ALBUT/IPRATROP 3MG/0.5MG NEB 3 ML VIAL NEB SCH (03:00)
[2022-07-09 07:19] LABS: Hematocrit (blood only) 37.1 % (42.0-52.0); Mean Corpuscular Hemoglobin 26.1 pg (25.0-34.0); Mean Corpuscular Hgb Conc 29.6 g/dL (32.0-36.0); Mean Corpuscular Volume 88.1 fL (80.0-100.0); Mean Platelet Volume 9.1 fL (9.4-12.4); Platelet Count 333 K/uL (130-400); RDW Coefficient of Variation 17.4 % (11.5-14.5); RDW Standard Deviation 56.1 fL (36.4-46.3); Red Blood Count 4.21 M/uL (4.70-6.10); White Blood Count 9.97 K/ul (4.8-10.8)
--- NOTE | 2022-07-09 07:22 | CT Scan Report ---
CT chest diagnostic wo con CT DOSE: 1204.21 mGy.cm HISTORY: Shortness of breath. TECHNIQUE: Multiaxial CT images of the chest were performed without contrast. A dose lowering techni que was utilized adhering to the principles of ALARA. COMPARISON: Chest CTA 03/08/2022. FINDINGS: No mediastinal or hilar lymphadenopathy. The heart remains mildly enlarged. Small calcifica tion within the right hepatic lobe. The visualized spleen and adrenal glands are unremarkable. Modera te calcified plaque within the coronary arteries. Normal caliber thoracic aorta. No acute fractures i dentified. Bilateral lower lobe airspace opacities, left greater than right. This favors atelectasis. A left basilar pneumonia could also have a similar appearance. Mild respiratory motion artifact. No pneumothorax. The central airways are patent. Stable 4 mm subpleural nodule along the right minor fis sure. This is likely benign. Stable 6 mm left upper lobe nodule on image 77. IMPRESSION: 1. Bilateral lower lobe airspace opacities, left greater than right. This favors atelectasis. A left basilar pneumonia could also have a similar appearance. 2. Stable mild cardiomegaly. 3. Stable subcentimeter pulmonary nodules with the largest in the left upper lobe measuring 6 mm. ACT 112: Negative or not required by law. Electronically signed by: Vijay Reynoso M.D. 07/09/2022 7:21 AM
[2022-07-09 07:51] LABS: Troponin I High Sensitivity 19.7 pg/ml (0-20)
[2022-07-09 08:10] LABS: Albumin Level 3.6 gm/dl (3.4-5.0); Bilirubin,Total 0.5 mg/dl (0.2-1.0); Calcium 9.1 mg/dl (8.5-10.1); Potassium 5.3 mmol/L (3.5-5.1)
[2022-07-09 08:16] LABS: BUN Creatinine Ratio 26.1 (10-20); Creatinine Clr Calc Pharmacy 33.8 ml/min; Est GFR (African American) 30.8 ml/min; Est GFR (Non-African American) 26.6 ml/min; Total Protein 7.7 gm/dl (6.0-8.3)
[2022-07-09] MEDS: INSULIN ASPART PER UNIT SC SCH ×4 (08:16→21:53)
[2022-07-09] MEDS: LANTUS PER UNIT CHARGE SQ SCH ×2 (08:16→21:49)
[2022-07-09] MEDS: GABAPENTIN 100 MG CAP PO SCH ×2 (08:23→21:53)
[2022-07-09] MEDS: ATORVASTATIN 10 MG TAB PO SCH (08:23)
[2022-07-09] MEDS: guaiFENesin 600 MG TABCR PO SCH ×2 (08:23→21:51)
[2022-07-09] MEDS: HEPARIN SOD 5,000 UNIT/0.5 ML VIAL SQ SCH ×2 (08:25→21:51)
--- NOTE | 2022-07-09 08:48 | XRay Report ---
XR chest 1V portable HISTORY: 77 years-old Male Dyspnea acute shortness of breath COMPARISON: Chest CT of same day TECHNIQUE: AP view of the chest FINDINGS: Cardiac silhouette is enlarged. No overt pulmonary edema, or pneumothorax. Trace right and small left pleural effusions with mild bibasilar consolidation. Degenerative changes of the shoulders and spine . IMPRESSION: 1. Cardiac megaly without pulmonary edema. 2. Small left pleural effusion with mild bibasilar consolidation, better characterized on the chest C T of same day. ACT 112: Negative or not required by law. The above report was generated using voice recognition software. It may contain grammatical, syntax o r spelling errors. Electronically signed by: Yunier Mcgregor M.D. 07/09/2022 8:47 AM
--- NOTE | 2022-07-09 10:01 | Electrocardiogram Report ---
Test Reason : Blood Pressure : / mmHG Vent. Rate : 059 BPM Atrial Rate : 059 BPM P-R Int : 246 ms QRS Dur : 082 ms QT Int : 404 ms P-R-T Axes : 020 018 065 degrees QTc Int : 399 ms Sinus bradycardia with 1st degree A-V block Low voltage QRS Poor R wave progression, consider anterior MN vs. lead placement vs. LVH Abnormal ECG When compared with ECG of 05-JUL-2022 16:58, No significant change Confirmed by Sachin Crawley ([id number]) on 07/09/2022 10:01:11 AM Referred By: REFERRED SELF Confirmed By:Sachin Crawley
[2022-07-09 13:16] LABS: HCO3 ABG 39 mmol/L (19-24); Oxygen Saturation ABG 98.7 % (90-95); PCO2 ABG 81 mmHg (35-46); PO2 ABG 93 mmHg (80-95); pH ABG 7.29 (7.35-7.45)
[2022-07-09 13:23] LABS: Allen Test Pos (Pos)
--- NOTE | 2022-07-09 16:20 | Electrocardiogram Report ---
Test Reason : Blood Pressure : / mmHG Vent. Rate : 057 BPM Atrial Rate : 057 BPM P-R Int : 234 ms QRS Dur : 076 ms QT Int : 398 ms P-R-T Axes : 051 011 067 degrees QTc Int : 387 ms Poor data quality, interpretation may be adversely affected Sinus bradycardia with 1st degree A-V block Low voltage QRS Cannot rule out Anterior infarct (cited on or before 09-JUL-2022) Abnormal ECG When compared with ECG of 08-JUL-2022 21:05, No significant change was found Confirmed by Sachin Crawley ([id number]) on 07/09/2022 4:19:43 PM Referred By: REFERRED SELF Confirmed By:Sachin Crawley
[2022-07-09] MEDS: predniSONE 5 MG TAB PO SCH (21:53)
[2022-07-09] MEDS: AZITHROMYCIN 250 MG in DEXTROSE 5% 250 ML IV SCH (22:03)
--- NOTE | 2022-07-09 22:20 | Hospitalist Progress Note ---
Date of Service July 09, 2022 Assessment & Plan (1) Respiratory failure with hypoxia and hypercapnia: Plan: Acute hypoxic hypercapnic respiratory failure ABG showed pH of 7.29 and PCO2 of 81 Patient did not use her BiPAP machine efficiently yesterday according to the nurse only used for few hours Patient advised to use BiPAP machine while he is sleeping (2) Acute respiratory failure with hypoxia: Plan: 77yo male with history of obesity hypoventilation syndrome, HFpEF, LIDYA, RA, DM and GERD presenting with acute on chronic hypoxia CT of the chest is suggestive of bilateral lower lobe infiltrate left greater than right which according to the radiologist this favors atelectasis and left basilar pneumonia could also have a similar appearance Patient presented to hospital with leukocytosis Started on cefepime and Zithromax De-escalated treatment to Rocephin and Zithromax Current oxygen requirement is at the baseline Pulmonary toiletflutter valve, incentive spirometry Guaifenesin Nebs every 4 hours as needed (3) DUNCAN (acute kidney injury): Plan: Multifactorial including medication (lisinopril, Lasix,) as well as sepsis Improving today Patient has baseline creatinine of 1.66 Stop IV fluid given history of CHF BMP tomorrow (4) Hypotension: Plan: Possibly multifactorial including sepsis and lisinopril as well as diuretic Hold Lasix, hold lisinopril Blood pressure normalized Stop IV fluid (5) Blurred vision: Plan: Multifactorial possibly secondary to hypercapnia and hypotension Improving Follow-up outpatient (6) CKD (chronic kidney disease), stage III: Plan: Patient with mild increase in creatinine from baseline. Was diuresed during last hospital admission. Also had his lisinopril increased to 40 mg daily. He did only receive 1 dose of 40 mg, however this morning. Patient does appear slightly clinically dry on exam Gentle IV fluids with LR at 80 mL/h x 1 L Avoid nephrotoxic agents Renal dosing were needed (7) Obesity hypoventilation syndrome: Plan: Chronic. BiPAP nightly. Patient presently does not flow oxygen through his BiPAP at night. Perform continuous pulse oximetry. (8) Type 2 diabetes mellitus with stage 2 chronic kidney disease and hypertension: Plan: On oral agents Hold oral agents Lantus 10 units twice daily Insulin sliding scale Goal blood sugar 110-140 (9) Rheumatoid arthritis: Plan: Patient follows with rheumatology. He is on chronic prednisone 5 mg p.o. daily Continue prednisone 5 mg p.o. daily Low threshold for stress dose steroids if patient becomes hypotensive (10) Hypertension: Plan: Patient with borderline low blood pressure upon arrival Gentle IV fluids as above with 1 L of LR We will hold metoprolol and lisinopril for now we will continue to monitor blood pressure We will hold Lasix for now (11) Hyperlipidemia: Plan: Chronic. Stable. Continue atorvastatin (12) GERD (gastroesophageal reflux disease): Plan: Chronic. Stable. Continue omeprazole FENLR at 80 mL/h x 1 L, Heparin for DVT prophylaxis, CodeDNR/DNI per discussion with patient Dispositionadmit to medical telemetry Admission and Anticipated Discharge Date Admission Date: July 08, 2022 Subjective ABG showed hypercapnic hypoxic respiratory failure with respiratory acidosis, patient does not use his BiPAP machine last night and tonight Physical Exam Physical Exam: General: patient resting comfortably, NAD, non-toxic in appearance, AA&O x 4, Oxymask in place Skin: warm, dry, intact, no rashes or lesions HEENT: NC/AT, PERRL, EOMI, anicteric sclera, conjunctiva without injection, external ear normal to inspection and nontender, nares patent, moist mucus membranes, dentition intact, no oropharyngeal lesions, neck supple, trachea midline, no LAD, no thyromegaly, no JVD Heart: +S1/S2, regular, no m/r/g Lungs: equal air entry bilaterally, +crackles present in left lung base and mid-lung field, mild crackles present in right lung base, no rhonchi or wheezes Abd: Obese, +BS, soft, NT/ND, no masses/organomegaly/ascites Ext: warm, 2+ pulses in UE/LE bilaterally, no clubbing/cyanosis Neuro: nonfocal, patient AA&O x 4, speech intact, no facial droop, moving all extremities on command with equal strength 5/5 Results & Data Results & Data ([facility]) Vital Signs (Past 12 Hours) Vital Signs Temp Pulse Pulse Resp BP Pulse Ox O2 Del Method 07/09/22 19:36 36.8 C 71 20 116/54 L 93 Oxymask 07/09/22 18:09 36.8 C 72 18 109/69 92 Oxymask 07/09/22 16:04 60 07/09/22 14:47 36.6 C 61 20 120/67 96 Nasal Cannula 07/09/22 14:11 97 Oxymask 07/09/22 11:47 36.3 C L 70 20 129/72 97 Oxymask 07/09/22 10:12 Oxymask O2 Flow Rate 07/09/22 19:36 3 07/09/22 18:09 3 07/09/22 16:04 07/09/22 14:47 4 07/09/22 14:11 7 07/09/22 11:47 9 07/09/22 10:12 7 PG Care Time/CCT Total # of Minutes Spent Total Time Spent with Patient: Total time spent is greater than 50% in coordination of care (as documented) at patient's floor/unit and/or counseling patient: Coding Level of Care Code 17301 SUB INP/OBS CARE 3/50MIN Diagnoses Respiratory failure with hypoxia and hypercapnia J96.91; J96.92 Acute respiratory failure with hypoxia J96.01 DUNCAN (acute kidney injury) N17.9 Hypotension I95.9 Blurred vision H53.8 CKD (chronic kidney disease), stage III N18.30 Obesity hypoventilation syndrome E66.2 Type 2 diabetes mellitus with stage 2 chronic kidney disease and hypertension E11.22; I12.9; N18.2 Rheumatoid arthritis M06.9 Rheumatoid arthritis location: unspecified site Rheumatoid factor presence: unspecified presence Hypertension I10 Hypertension type: unspecified Hyperlipidemia E78.5 GERD (gastroesophageal reflux disease) K21.9 (1) Rheumatoid arthritis Rheumatoid arthritis location: unspecified site Rheumatoid factor presence: unspecified presence Qualified Code(s): M06.9 - Rheumatoid arthritis, unspecified (2) Hypertension Hypertension type: unspecified Qualified Code(s): I10 - Essential (primary) hypertension
[2022-07-10 07:38] LABS: Hematocrit (blood only) 35.8 % (42.0-52.0); Hemoglobin 10.9 g/dl (14.0-18.0); Mean Corpuscular Hemoglobin 26.5 pg (25.0-34.0); Mean Corpuscular Hgb Conc 30.4 g/dL (32.0-36.0); Mean Corpuscular Volume 86.9 fL (80.0-100.0); Mean Platelet Volume 9.5 fL (9.4-12.4); Platelet Count 331 K/uL (130-400); RDW Coefficient of Variation 17.2 % (11.5-14.5); RDW Standard Deviation 54.9 fL (36.4-46.3); Red Blood Count 4.12 M/uL (4.70-6.10); White Blood Count 11.24 K/ul (4.8-10.8)
[2022-07-10 07:44] LABS: BUN Creatinine Ratio 34.4 (10-20); Calcium 9.2 mg/dl (8.5-10.1); Creatinine Clr Calc Pharmacy 47.8 ml/min; Est GFR (African American) 46.8 ml/min; Est GFR (Non-African American) 40.4 ml/min; Potassium 5.2 mmol/L (3.5-5.1)
[2022-07-10] MEDS ORDERED: cefTRIAXone SODIUM 1,000 MG in DEXTROSE 5% AD-VAN 50 ML IV SCH (08:30)
[2022-07-10] MEDS: INSULIN ASPART PER UNIT SC SCH ×4 (08:38→21:51)
[2022-07-10] MEDS: LANTUS PER UNIT CHARGE SQ SCH ×2 (08:39→21:51)
[2022-07-10] MEDS: cefTRIAXone SODIUM 2,000 MG in DEXTROSE 5% 50 ML IV SCH (08:43)
[2022-07-10] MEDS: guaiFENesin 600 MG TABCR PO SCH ×2 (08:43→21:49)
[2022-07-10] MEDS: HEPARIN SOD 5,000 UNIT/0.5 ML VIAL SQ SCH ×2 (08:43→21:50)
[2022-07-10] MEDS: GABAPENTIN 100 MG CAP PO SCH ×2 (08:43→21:50)
[2022-07-10] MEDS: ATORVASTATIN 10 MG TAB PO SCH (08:43)
--- NOTE | 2022-07-10 17:26 | Hospitalist Progress Note ---
Date of Service July 10, 2022 Assessment & Plan (1) Respiratory failure with hypoxia and hypercapnia: Plan: Acute hypoxic hypercapnic respiratory failure ABG showed pH of 7.29 and PCO2 of 81 Patient did not use her BiPAP machine efficiently yesterday according to the nurse only used for few hours According to the family member patient used BiPAP machine at home on a regular basis I asked the family to bring the BiPAP machine tonight so he can use his BiPAP machine overnight and recheck ABG tomorrow if the BiPAP machine cannot provide enough support, patient BiPAP machine setting needs to be changed over he may need trilogy machine (2) Acute respiratory failure with hypoxia: Plan: 77yo male with history of obesity hypoventilation syndrome, HFpEF, LIDYA, RA, DM and GERD presenting with acute on chronic hypoxia CT of the chest is suggestive of bilateral lower lobe infiltrate left greater than right which according to the radiologist this favors atelectasis and left basilar pneumonia could also have a similar appearance Patient presented to hospital with leukocytosis Started on cefepime and Zithromax De-escalated treatment to Rocephin and Zithromax on 07/09 Current oxygen requirement is at the baseline Pulmonary toiletflutter valve, incentive spirometry Guaifenesin Nebs every 4 hours as needed (3) DUNCAN (acute kidney injury): Plan: Multifactorial including medication (lisinopril, Lasix,) as well as sepsis Improving today creatinine is one-point Patient has baseline creatinine of 1.66 Stop IV fluid given history of CHF BMP tomorrow (4) Hypotension: Plan: Possibly multifactorial including sepsis and lisinopril as well as diuretic Hold Lasix, hold lisinopril Blood pressure normalized Stop IV fluid on 07/09 If the patient is medically stable we can resume Lasix gradually within next couple of days (5) Blurred vision: Plan: Multifactorial possibly secondary to hypercapnia and hypotension Follow-up outpatient (6) CKD (chronic kidney disease), stage III: Plan: Patient with mild increase in creatinine from baseline. Was diuresed during last hospital admission. Also had his lisinopril increased to 40 mg daily. He did only receive 1 dose of 40 mg, however this morning. Patient does appear slightly clinically dry on exam Gentle IV fluids with LR at 80 mL/h x 1 L Avoid nephrotoxic agents Renal dosing were needed (7) Obesity hypoventilation syndrome: Plan: Chronic. BiPAP nightly. Patient presently does not flow oxygen through his BiPAP at night. Perform continuous pulse oximetry. (8) Type 2 diabetes mellitus with stage 2 chronic kidney disease and hypert ension: Plan: On oral agents Hold oral agents Lantus 10 units twice daily Insulin sliding scale Goal blood sugar 110-140 (9) Rheumatoid arthritis: Plan: Patient follows with rheumatology. He is on chronic prednisone 5 mg p.o. daily Continue prednisone 5 mg p.o. daily Low threshold for stress dose steroids if patient becomes hypotensive (10) Hypertension: Plan: Patient with borderline low blood pressure upon arrival Gentle IV fluids as above with 1 L of LR We will hold metoprolol and lisinopril for now we will continue to monitor blood pressure We will hold Lasix for now -The blood pressure is currently normalized, we monitor the blood pressure if it is necessary to gradually resume his BP meds (11) Hyperlipidemia: Plan: Chronic. Stable. Continue atorvastatin (12) GERD (gastroesophageal reflux disease): Plan: Chronic. Stable. Continue omeprazole FENLR at 80 mL/h x 1 L, Heparin for DVT prophylaxis, CodeDNR/DNI per discussion with patient Dispositionadmit to medical telemetry Admission and Anticipated Discharge Date Admission Date: July 08, 2022 Subjective ABG showed hypercapnic hypoxic respiratory failure with respiratory acidosis, Physical Exam Physical Exam: General: patient resting comfortably, NAD, non-toxic in appearance, AA&O x 4, Oxymask in place Skin: warm, dry, intact, no rashes or lesions HEENT: NC/AT, PERRL, EOMI, anicteric sclera, conjunctiva without injection, external ear normal to inspection and nontender, nares patent, moist mucus membranes, dentition intact, no oropharyngeal lesions, neck supple, trachea midline, no LAD, no thyromegaly, no JVD Heart: +S1/S2, regular, no m/r/g Lungs: equal air entry bilaterally, +crackles present in left lung base and mid-lung field, mild crackles present in right lung base, no rhonchi or wheezes Abd: Obese, +BS, soft, NT/ND, no masses/organomegaly/ascites Ext: warm, 2+ pulses in UE/LE bilaterally, no clubbing/cyanosis Neuro: nonfocal, patient AA&O x 4, speech intact, no facial droop, moving all extremities on command with equal strength 5/5 Results & Data Results & Data ([facility]) Vital Signs (Past 12 Hours) Vital Signs Temp Pulse Pulse Resp BP Pulse Ox O2 Del Method 07/10/22 14:54 36.7 C 70 20 132/53 L 92 Nasal Cannula 07/10/22 14:50 73 07/10/22 12:08 Nasal Cannula 07/10/22 11:04 36.8 C 64 20 123/65 92 Oxymask 07/10/22 08:03 36.6 C 62 20 115/61 96 Oxymask 07/10/22 06:59 70 O2 Flow Rate 07/10/22 14:54 3 07/10/22 14:50 07/10/22 12:08 4 07/10/22 11:04 3 07/10/22 08:03 3 07/10/22 06:59 PG Care Time/CCT Total # of Minutes Spent Total Time Spent with Patient: Total time spent is greater than 50% in coordination of care (as documented) at patient's floor/unit and/or counseling patient: Coding Level of Care Code 96728 SUB INP/OBS CARE 3/50MIN Diagnoses Respiratory failure with hypoxia and hypercapnia J96.91; J96.92 Acute respiratory failure with hypoxia J96.01 DUNCAN (acute kidney injury) N17.9 Hypotension I95.9 Blurred vision H53.8 CKD (chronic kidney disease), stage III N18.30 Obesity hypoventilation syndrome E66.2 Type 2 diabetes mellitus with stage 2 chronic kidney disease and hypertension E11.22; I12.9; N18.2 Rheumatoid arthritis M06.9 Rheumatoid arthritis location: unspecified site Rheumatoid factor presence: unspecified presence Hypertension I10 Hypertension type: unspecified Hyperlipidemia E78.5 GERD (gastroesophageal reflux disease) K21.9 (1) Rheumatoid arthritis Rheumatoid arthritis location: unspecified site Rheumatoid factor presence: unspecified presence Qualified Code(s): M06.9 - Rheumatoid arthritis, unspecified (2) Hypertension Hypertension type: unspecified Qualified Code(s): I10 - Essential (primary) hypertension
[2022-07-10] MEDS: predniSONE 5 MG TAB PO SCH (21:51)
[2022-07-10] MEDS: AZITHROMYCIN 250 MG in DEXTROSE 5% 250 ML IV SCH (22:38)
[2022-07-11] MEDS: INSULIN ASPART PER UNIT SC SCH ×4 (08:28→22:04)
[2022-07-11] MEDS: ATORVASTATIN 10 MG TAB PO SCH (08:29)
[2022-07-11] MEDS: GABAPENTIN 100 MG CAP PO SCH ×2 (08:29→22:02)
[2022-07-11] MEDS: guaiFENesin 600 MG TABCR PO SCH ×2 (08:30→22:03)
[2022-07-11] MEDS: HEPARIN SOD 5,000 UNIT/0.5 ML VIAL SQ SCH ×3 (08:30→22:03)
[2022-07-11] MEDS: cefTRIAXone SODIUM 2,000 MG in DEXTROSE 5% 50 ML IV SCH (08:30)
[2022-07-11] MEDS: LANTUS PER UNIT CHARGE SQ SCH ×2 (08:31→22:05)
[2022-07-11 08:42] LABS: Base Excess ABG 15.6 mEq/L (-9-1.8); HCO3 ABG 42 mmol/L (19-24); Oxygen Saturation ABG 92.5 % (90-95); PCO2 ABG 58 mmHg (35-46); PO2 ABG 61 mmHg (80-95); pH ABG 7.47 (7.35-7.45)
[2022-07-11 08:57] LABS: Hematocrit (blood only) 37.2 % (42.0-52.0); Hemoglobin 11.4 g/dl (14.0-18.0); Mean Corpuscular Hemoglobin 26.3 pg (25.0-34.0); Mean Corpuscular Hgb Conc 30.6 g/dL (32.0-36.0); Mean Corpuscular Volume 85.9 fL (80.0-100.0); Mean Platelet Volume 9.2 fL (9.4-12.4); Platelet Count 332 K/uL (130-400); RDW Coefficient of Variation 17.1 % (11.5-14.5); RDW Standard Deviation 53.8 fL (36.4-46.3); Red Blood Count 4.33 M/uL (4.70-6.10); White Blood Count 11.77 K/ul (4.8-10.8)
[2022-07-11 09:00] LABS: Allen Test Pos (Pos)
[2022-07-11 09:11] LABS: BUN Creatinine Ratio 29.3 (10-20); Calcium 9.6 mg/dl (8.5-10.1); Creatinine Clr Calc Pharmacy 57.2 ml/min; Est GFR (African American) 58.5 ml/min; Est GFR (Non-African American) 50.5 ml/min
--- NOTE | 2022-07-11 15:59 | Hospitalist Progress Note ---
Date of Service July 11, 2022 Assessment & Plan (1) Respiratory failure with hypoxia and hypercapnia: Plan: Acute hypoxic hypercapnic respiratory failure ABG showed pH of 7.29 and PCO2 of 81, which improved to PCO2 56 on his home BIPAP -Will continue BIPAPO -According to family, patient not usually compliant with his BIPAP (2) Acute respiratory failure with hypoxia: Plan: 77yo male with history of obesity hypoventilation syndrome, HFpEF, LIDYA, RA, DM and GERD presenting with acute on chronic hypoxia CT of the chest is suggestive of bilateral lower lobe infiltrate left greater than right which according to the radiologist this favors atelectasis and left basilar pneumonia could also have a similar appearance Patient presented to hospital with leukocytosis Started on cefepime and Zithromax De-escalated treatment to Rocephin and Zithromax on 07/09 Current oxygen requirement is at the baseline Pulmonary toiletflutter valve, incentive spirometry Guaifenesin Nebs every 4 hours as needed (3) DUNCAN (acute kidney injury): Plan: Multifactorial including medication (lisinopril, Lasix,) as well as sepsis Cr is now at baseline (4) Hypotension: Plan: Resolved will resume his home meds (5) Blurred vision: Plan: Multifactorial possibly secondary to hypercapnia and hypotension Follow-up outpatient (6) CKD (chronic kidney disease), stage III: Plan: Patient with mild increase in creatinine from baseline. Was diuresed during last hospital admission. Also had his lisinopril increased to 40 mg daily. He did only receive 1 dose of 40 mg, however this morning. Patient does appear slightly clinically dry on exam Gentle IV fluids with LR at 80 mL/h x 1 L Avoid nephrotoxic agents Renal dosing were needed (7) Obesity hypoventilation syndrome: Plan: Chronic. BiPAP nightly. Patient presently does not flow oxygen through his BiPAP at night. Perform continuous pulse oximetry. (8) Type 2 diabetes mellitus with stage 2 chronic kidney disease and hypertension: Plan: On oral agents Hold oral agents Lantus 10 units twice daily Insulin sliding scale Goal blood sugar 110-140 (9) Rheumatoid arthritis: Plan: Patient follows with rheumatology. He is on chronic prednisone 5 mg p.o. daily Continue prednisone 5 mg p.o. daily Low threshold for stress dose steroids if patient becomes hypotensive (10) Hypertension: Plan: Resume home meds (11) Hyperlipidemia: Plan: Chronic. Stable. Continue atorvastatin (12) GERD (gastroesophageal reflux disease): Plan: Chronic. Stable. Continue omeprazole FENLR at 80 mL/h x 1 L, Heparin for DVT prophylaxis, CodeDNR/DNI per discussion with patient Dispositionadmit to medical telemetry Plan hopefully d/c in the next 24 hrs Admission and Anticipated Discharge Date Admission Date: July 08, 2022 Subjective patient seen and examined, family by the bedside, says his SOB has improved Review of Systems Review of Systems: The patient is awake, alert and oriented 3, well developed and well nourished, normocephalic and atraumatic, lying in bed and in no acute distress. HEENT--PERRL, EOMI, mucous membranes and oropharynx mildly dry Neck--supple. No JVD. No bruits. Thyroid normal, trachea midline, no adenopathy. Heart--normal S1 and S2. No murmurs, rubs or gallops. Lungs--clear bilaterally, no respiratory distress, no accessory muscle use. Abdomen--normal bowel sounds and soft. Mild epigastric and left sided abdominal pain Extremities--no cyanosis or clubbing. No edema. Dermatologic--normal skin turgor, normal color, no abnormal lymph nodes, no rash. Neurologic--cranial nerves II through XII grossly intact. Rheumatologic--normal range of motion. Psychiatric--normal affect. Results & Data Results & Data ([facility]) Vital Signs (Past 12 Hours) Vital Signs Temp Pulse Resp BP Pulse Ox O2 Del Method O2 Flow Rate 07/11/22 15:26 98.4 F 77 20 163/70 H 95 Nasal Cannula 4 07/11/22 08:00 Nasal Cannula 4 07/11/22 11:23 97.7 F 84 20 151/76 H 93 Nasal Cannula 4 07/11/22 07:34 98.4 F 76 20 163/69 H 92 Nasal Cannula 4 07/11/22 05:16 97.7 F 85 20 157/78 H 93 Nasal Cannula 4 07/11/22 04:07 77 148/80 H 93 Nasal Cannula 3 07/11/22 04:18 Nasal Cannula 3 PG Care Time/CCT Total # of Minutes Spent Total Time Spent with Patient: Total time spent is greater than 50% in coordination of care (as documented) at patient's floor/unit and/or counseling patient: Coding Level of Care Code 83497 SUB INP/OBS CARE 35MIN Diagnoses Respiratory failure with hypoxia and hypercapnia J96.91; J96.92 Acute respiratory failure with hypoxia J96.01 DUNCAN (acute kidney injury) N17.9 Hypotension I95.9 Blurred vision H53.8 CKD (chronic kidney disease), stage III N18.30 Obesity hypoventilation syndrome E66.2 Type 2 diabetes mellitus with stage 2 chronic kidney disease and hypertension E11.22; I12.9; N18.2 Rheumatoid arthritis M06.9 Rheumatoid arthritis location: unspecified site Rheumatoid factor presence: unspecified presence Hypertension I10 Hypertension type: unspecified Hyperlipidemia E78.5 GERD (gastroesophageal reflux disease) K21.9 Time Spent (min) 35 (1) Rheumatoid arthritis Rheumatoid arthritis location: unspecified site Rheumatoid factor presence: unspecified presence Qualified Code(s): M06.9 - Rheumatoid arthritis, unspecified (2) Hypertension Hypertension type: unspecified Qualified Code(s): I10 - Essential (primary) hypertension
[2022-07-11] MEDS: predniSONE 5 MG TAB PO SCH (22:04)
[2022-07-11] MEDS: AZITHROMYCIN 250 MG in DEXTROSE 5% 250 ML IV SCH (22:08)
[2022-07-12 08:09] LABS: Base Excess ABG 11.4 mEq/L (-9-1.8); HCO3 ABG 38 mmol/L (19-24); Oxygen Saturation ABG 97.9 % (90-95); PCO2 ABG 57 mmHg (35-46); PO2 ABG 80 mmHg (80-95); pH ABG 7.43 (7.35-7.45)
[2022-07-12 08:10] LABS: Allen Test Pos (Pos)
[2022-07-12] MEDS: INSULIN ASPART PER UNIT SC SCH ×2 (09:37→12:55)
[2022-07-12] MEDS: ATORVASTATIN 10 MG TAB PO SCH (09:45)
[2022-07-12] MEDS: GABAPENTIN 100 MG CAP PO SCH (09:45)
[2022-07-12] MEDS: guaiFENesin 600 MG TABCR PO SCH (09:46)
[2022-07-12] MEDS: HEPARIN SOD 5,000 UNIT/0.5 ML VIAL SQ SCH (09:47)
[2022-07-12] MEDS: LANTUS PER UNIT CHARGE SQ SCH (10:50)
[2022-07-12] MEDS: cefTRIAXone SODIUM 2,000 MG in DEXTROSE 5% 50 ML IV SCH (10:50)
--- NOTE | 2022-07-12 15:36 | Discharge Summary ---
Date of Service July 12, 2022 Admission HPI Per Admitting Provider Sarwat Campbell is a 77yo male with history of LIDYA, Obesity hypoventilation syndrome and chronic hypoxemic respiratory failure on supplemental O2 as needed at home - patient presents today from home with episode of acute hypoxia. Patient was recently admitted to [facility] from 07/05/22 - 07/07/22 with 1.5 weeks of progressive dyspnea and URI symptoms. Patient was treated for acute exacerbation of CHF in the setting of presumed viral URI. He was diuresed with Lasix 40mg IV BID as well as Metolazone. Patient felt well on the day of discharge. His Lisinopril was increased from 20mg po daily to 40mg po daily. Prior to last admission patient was using supplemental O2 - 2L by [facility]. He also wears BiPAP at night. He has a portable O2 concentrator that goes up to 5L. Patient returned home without difficulty. His states that over the last day, however, he has been having a continued deep, moist sounding cough with inability to clear sputum as well as episodes of confusion. Today he had an episode of blurry vision and dizziness. At that time his granddaughter checked his oxygen level and it was 60%. reports that his SpO2 went as low as 45%. Family placed him on his CPAP machine and called EMS. Patient denies fever, chills, nausea, vomiting, diarrhea or constipation. He did have some dizziness earlier today but denies syncope or falls. He denies chest pain or wheeze. Denies orthopnea, edema or weight gain. Upon arrival to the ER patient hypoxic at 82%, blood pressure 99/59. Patient is presently on Oxymask 9L/m with adequate saturation of 94%. ER Course: Zosyn 4.5gm at 00:40 Principal Diagnosis Respiratory failure with hypoxia and hypercapnia, CHF Discharge Exam The patient is awake, alert and oriented 3, well developed and well nourished, normocephalic and atraumatic, lying in bed and in no acute distress. HEENT--PERRL, EOMI, mucous membranes and oropharynx mildly dry Neck--supple. No JVD. No bruits. Thyroid normal, trachea midline, no adenopathy. Heart--normal S1 and S2. No murmurs, rubs or gallops. Lungs--clear bilaterally, no respiratory distress, no accessory muscle use. Abdomen--normal bowel sounds and soft. Mild epigastric and left sided abdominal pain Extremities--no cyanosis or clubbing. No edema. Dermatologic--normal skin turgor, normal color, no abnormal lymph nodes, no rash. Neurologic--cranial nerves II through XII grossly intact. Rheumatologic--normal range of motion. Psychiatric--normal affect. Discharge Data Allergies Allergy/AdvReac Type Severity Reaction Status Date / Time codeine Allergy Intermediate HIVES (PT Verified 07/05/22 17:16 DOES NOT USE PERCOCET) Consultations 07/08/22 22:36 ED Decision to Admit Stat Ordered Studies 07/08/22 22:36 CT chest diagnostic wo con Urgent Hospital Course (1) Respiratory failure with hypoxia and hypercapnia: Acute hypoxic hypercapnic respiratory failure ABG showed pH of 7.29 and PCO2 of 81, which improved to PCO2 56 on his home BIPAP -Will continue BIPAPO -According to family, patient not usually compliant with his BIPAP (2) Acute respiratory failure with hypoxia: 77yo male with history of obesity hypoventilation syndrome, HFpEF, LIDYA, RA, DM and GERD presenting with acute on chronic hypoxia CT of the chest is suggestive of bilateral lower lobe infiltrate left greater than right which according to the radiologist this favors atelectasis and left basilar pneumonia could also have a similar appearance Patient presented to hospital with leukocytosis Started on cefepime and Zithromax De-escalated treatment to Rocephin and Zithromax on 07/09 Current oxygen requirement is at the baseline Pulmonary toiletflutter valve, incentive spirometry Guaifenesin Nebs every 4 hours as needed -Patient needs an increase in his home oxygen. After 2 step, it was determined he would need 2L at rest and 4L with ambulation (3) DUNCAN (acute kidney injury): Multifactorial including medication (lisinopril, Lasix,) as well as sepsis Cr is now at baseline (4) Hypotension: Resolved will resume his home meds (5) Blurred vision: Multifactorial possibly secondary to hypercapnia and hypotension Follow-up outpatient (6) CKD (chronic kidney disease), stage III: Patient with mild increase in creatinine from baseline. Was diuresed during last hospital admission. Also had his lisinopril increased to 40 mg daily. He did only receive 1 dose of 40 mg, however this morning. Patient does appear slightly clinically dry on exam Gentle IV fluids with LR at 80 mL/h x 1 L Avoid nephrotoxic agents Renal dosing were needed (7) Obesity hypoventilation syndrome: Chronic. BiPAP nightly. Patient presently does not flow oxygen through his BiPAP at night. Perform continuous pulse oximetry. (8) Type 2 diabetes mellitus with stage 2 chronic kidney disease and hypertension: On oral agents Hold oral agents Lantus 10 units twice daily Insulin sliding scale Goal blood sugar 110-140 (9) Rheumatoid arthritis: Patient follows with rheumatology. He is on chronic prednisone 5 mg p.o. daily Continue prednisone 5 mg p.o. daily Low threshold for stress dose steroids if patient becomes hypotensive (10) Hypertension: Resume home meds (11) Hyperlipidemia: Chronic. Stable. Continue atorvastatin (12) GERD (gastroesophageal reflux disease): Chronic. Stable. Continue omeprazole FENLR at 80 mL/h x 1 L, Heparin for DVT prophylaxis, CodeDNR/DNI per discussion with patient Dispositionadmit to medical telemetry Plan d/c home Total Time Total Time Spent Total Time Spent (In Minutes): 35 Discharge Plan Discharge Items Patient Disposition: Home - Self-Care Reason For Visit: HYPOXIA Discharge Diagnosis: Respiratory failure with hypoxia ad hypercapnia. We changed your dose of lasix to 40mg daily because of the effect on your kidneys. Please make appointment to see your PCP as soon as possible if he needs to adjust your medications Activity: Resume your previous activity Non-emergency contact: Primary Care Provider Call non-emergency contact if: you have any medication questions Follow-up/Referrals: Robbie Mohr DO [Primary Care Provider] - 07/19/22 12:00 pm Diet: Regular Addtl Attending Provider Instructions: please make appointment to follow up with your regular PCP Pending Studies at Discharge: No Stand-Alone Forms: My Online Prasad, Smoking Cessation Medications and DC Order Prescriptions: New furosemide [Lasix] 40 mg tablet 40 mg PO DAILY Qty: 30 0RF doxycycline monohydrate 100 mg capsule 100 mg PO BID 5 Days Qty: 10 0RF Continued cholecalciferol (vitamin D3) [Vitamin D3] 25 mcg (1,000 unit) capsule 5,000 unit PO QAM glimepiride 2 mg tablet 2 mg PO BID Qty: 180 3RF metformin 500 mg tablet 500 mg PO BID Qty: 180 3RF Rx Instructions: Administer with food (DME) OneTouch Verio test strips Strip See Rx Instructions .Route Qty: 100 5RF Rx Instructions: check glucose daily 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 Use with 2L continuous O2. gabapentin 300 mg capsule 300 mg PO BID Qty: 180 3RF metoprolol succinate 200 mg tablet extended release 24 hr 200 mg PO QAM Qty: 90 3RF atorvastatin 10 mg tablet 10 mg PO QAM Qty: 90 3RF potassium chloride 10 mEq capsule, extended release 10 meq PO QAM Qty: 90 3RF Jardiance 10 mg tablet 10 mg PO DAILY Qty: 30 5RF Combivent Respimat 20-100 mcg/actuation mist 1 puff inhalation Q6H magnesium oxide 400 mg magnesium tablet 400 mg PO TID Qty: 270 1RF prednisone 5 mg tablet 5 mg PO HS omeprazole 20 mg capsule,delayed release(DR/EC) 20 mg PO QAM Xeljanz XR 11 mg tablet extended release 24 hr 11 mg PO QAM [id number] Tablet 1 tab PO DAILY tramadol 50 mg tablet 50 - 100 mg PO Q4H PRN (Reason: Pain) metolazone 2.5 mg tablet 2.5 mg PO Q3D PRN (Reason: WT GAIN 5 LB IN 3 DAYS.) Rx Instructions: for weight gain greater than 5 pounds in 3 days lisinopril 20 mg tablet 40 mg PO QAM Qty: 90 3RF Discontinued furosemide 40 mg tablet 60 mg PO BID Qty: 90 11RF Discharge Orders: Discharge Order (Routine); Ordered 07/12/22 Ordered By: Miladys Lloyd/Other Patient Handouts: Treating Pneumonia Admission Data Admit Date/Time: 07/08/22 23:14 Attending Provider: Miladys Wing Admit Provider: Leah Hedrick Primary Care Provider: Robbie Mohr Other Providers: Leah Hedrick ; [place] Other Interventions: Discharge Summary Assessment (RN) Last Done: 07/12/22 13:21 Coding Level of Care Code HOSP INP/OBS DISCH >30 MIN Diagnoses Respiratory failure with hypoxia and hypercapnia J96.91; J96.92 Acute respiratory failure with hypoxia J96.01 DUNCAN (acute kidney injury) N17.9 Hypotension I95.9 Blurred vision H53.8 CKD (chronic kidney disease), stage III N18.30 Obesity hypoventilation syndrome E66.2 Type 2 diabetes mellitus with stage 2 chronic kidney disease and hypertension E11.22; I12.9; N18.2 Rheumatoid arthritis M06.9 Rheumatoid arthritis location: unspecified site Rheumatoid factor presence: unspecified presence Hypertension I10 Hypertension type: unspecified Hyperlipidemia E78.5 GERD (gastroesophageal reflux disease) K21.9 Time Spent (min) 35
== END 2022-07-12 14:46 | disposition home or self-care (01) | DRG 189 ==
LOC: ED 20:57 → 2N 23:14 → SUATTDRO 23:14 → 2N 23:39

== ENCOUNTER 2022-09-21 02:56 | Inpatient (IN) ==
[2022-09-21 03:50] LABS: Hematocrit (blood only) 33.9 % (42.0-52.0); Hemoglobin 10.6 g/dl (14.0-18.0); Mean Corpuscular Hemoglobin 27.9 pg (25.0-34.0); Mean Corpuscular Hgb Conc 31.3 g/dL (32.0-36.0); Mean Corpuscular Volume 89.2 fL (80.0-100.0); Mean Platelet Volume 9.8 fL (9.4-12.4); Platelet Count 358 K/uL (130-400); RDW Coefficient of Variation 19.3 % (11.5-14.5); RDW Standard Deviation 62.7 fL (36.4-46.3)
[2022-09-21 04:14] LABS: Albumin Level 3.8 gm/dl (3.4-5.0); BUN Creatinine Ratio 34.1 (10-20); Bilirubin Direct 0.1 mg/dl (0-0.2); Bilirubin,Total 0.5 mg/dl (0.2-1.0); Calcium 9.3 mg/dl (8.6-10.3); Creatinine Clr Calc Pharmacy 33.8 ml/min; Est GFR (African American) 32.4 ml/min; Est GFR (Non-African American) 27.9 ml/min; Magnesium 2.4 mg/dl (1.7-2.4); Potassium 4.9 mmol/L (3.5-5.1); Total Protein 8.7 gm/dl (6.0-8.3)
[2022-09-21 04:19] LABS: Troponin I High Sensitivity 24.8 pg/ml (0-20)
[2022-09-21 04:28] LABS: Influenza A virus by PCR Negative (Neg); Influenza B virus by PCR Negative (Neg); RSV by PCR Negative (Neg); SARS CoV2 RNA(COVID-19) Ceph NEGATIVE (Negative)
[2022-09-21 04:30] LABS: Basophils # (auto) 0.03 K/uL (0-0.2); Basophils % (auto) 0.3 %; Eosinophils # (auto) 0.08 K/uL (0-0.50); Eosinophils % (auto) 0.7 %; Immature Granulocytes # (auto) 0.09 K/uL (0.01-0.20); Immature Granulocytes % (auto) 0.8 %; Lymphocytes # (auto) 0.29 K/uL (1.2-3.4); Lymphocytes % (auto) 2.5 %; Monocytes # (auto) 0.47 K/uL (0.11-0.59); Neutrophils # (auto) 10.84 K/uL (1.40-6.50); Neutrophils % (auto) 91.7 %; RBC Morphology Unremarkable
[2022-09-21] MEDS ORDERED: SODIUM CHLORIDE 0.9% 1000ML 1,000 ML IV ONE (04:32)
[2022-09-21] MEDS ORDERED: CEFEPIME 2,000 MG/20 ML VIAL IV STA (04:37)
--- NOTE | 2022-09-21 04:45 | Emergency Department Note ---
Impression & Plan Sepsis, Acute kidney injury, Elevated troponin Admit to the [facility] ED Provider Note NAME: HINA ALEX AGE: 77 SEX: M ARRIVES VIA: Ambulance INFORMANT: Patient ED PROVIDER(S): Yuko Flynn DO CHIEF COMPLAINT: Fall PLAN: Disposition: Admit to the [facility] Condition: Guarded MEDICAL DECISION MAKING: This is a 77-year-old male patient who presents to the emergency department after falling while trying to transfer from his wheelchair to the toilet. Celeste jesus has been having increased weakness over the past couple of weeks but kerry had a large episode of diarrhea and vomiting and then fell. He was brought to the emergency department by EMS where he was found to be febrile. A septic protocol was performed. Patient's white blood cell count was 11.8. He did have an elevated lactate at 3.4 and a procalcitonin of 0.6. He had evidence of acute kidney injury with a BUN of 74 and a creatinine of 2.17. Troponin was also elevated at 24.8. Patient was found to be hyperglycemic with a blood sugar of 229. The patient was bolused with IV normal saline solution of 1 L. I did not give the total of 30 mL/kg for sepsis as the patient's explains that he had been fluid overloaded all week and had gained more than 10 pounds of water weight. Patient complained of back pain which is a chronic issue for him. He was treated with IV fentanyl and IV Zofran. The patient was given a dose of IV cefepime as a broad-spectrum antibiotic for sepsis. I discussed the case with the [facility] and they will evaluate for inpatient care. Triage Nursing notes reviewed and agree with them. Additional history obtained from the patient's daughter and who arrived here in the emergency department Prior medical records reviewed Vital Signs: reviewed and remarkable for fever and hypertension Differential diagnosis: Sepsis, pneumonia, dehydration, UTI, traumatic injury secondary to fall ER treatment provided: Cardiac monitoring Twelve-lead EKG Supplemental oxygen IV normal saline bolus IV cefepime Diagnostics interpreted by me: ECG: Normal sinus rhythm at 89 with a first-degree AV block. There is no ST segment elevation or signs of ischemia. There is some artifact at baseline. Cardiac Monitoring: Normal sinus rhythm at 92 Laboratory studies: See below Imaging studies: As per my independent interpretation Portable chest x-ray: No obvious opacity or infiltrate. There is some left perihilar fullness. HPI: 77/M arrives for evaluation of fall. Patient had an episode of vomiting and diarrhea this evening and was transferring from his wheelchair to the toilet when he suffered a fall backwards. He is noted to have a fever here of 38.1. Family explains that he has become increasingly weak, especially in his legs, over the past 3 weeks. He has been seen here in the emergency department 2 other times in the past week. ROS: See above HPI for pertinent positives & negatives. A total of 10 systems reviewed and were otherwise negative. PAST MEDICAL HISTORY:See Below PAST SURGICAL HISTORY:See Below FAMILY HISTORY:See Below SOCIAL HISTORY:See Below HOME MEDICATIONS:See list ALLERGIES:See list VITALS:See Below PHYSICAL EXAMINATION: HEENT: Head - normocephalic and atraumatic. Pupils are equal, round, and reactive to light. Extraocular eye muscles are intact, and sclera are anicteric. Nose - moist nasal mucosa without discharge. Mouth - moist buccal mucosa. Oropharynx is nonerythematous and there is no tonsillar exudate or edema noted. Neck: Supple; no pain to palpation in the posterior cervical spine. Heart: Regular rate and rhythm. There is a normal S1 and S2 with no murmurs, clicks, or gallops appreciated. Lungs: Clear to auscultation bilaterally with no wheezes, rales, or rhonchi. Abdomen: Soft, protuberant completely nontender, nondistended, with good bowel sounds. There are no palpable pulsatile masses or hepatosplenomegaly. There is no guarding, rigidity, or rebound noted. Extremities: Trace pedal edema there are easily palpable peripheral pulses. Skin: warm and dry with good turgor and no rashes. Back: Patient does have some reproducible discomfort in the midline thoracic spine. He describes this as chronic pain ED COURSE: Times/Reassessments: 315 the patient was evaluated and A-3. A complete history and physical was performed. A septic protocol was performed. An IV lock was initiated and labs are drawn as above. The patient was given a dose of IV fentanyl and IV Zofran for his pain. An order was placed for continuous cardiac monitoring. The patient was in a normal sinus rhythm at a rate of 92 he was bolused with a liter of normal saline solution. Portable chest x-ray was performed. He was given a dose of IV cefepime. Yuko Flynn DO Past Med/Surg History Medical History Acute hypoxemic respiratory failure Treated inpatient [facility] 08/28-08/31/21 Acute respiratory failure with hypoxia Acute sinusitis Chronic anemia hgb stable in the 11's CKD (chronic kidney disease), stage III COPD (chronic obstructive pulmonary disease) Per remote records, pt/family denies Diabetes NIDDM GERD (gastroesophageal reflux disease) Hyperlipidemia Hypertension MGUS (monoclonal gammopathy of unknown significance) Per records Morbid obesity On home oxygen therapy 2lpm HS + PRN (with walking/exertion during the day) Peripheral neuropathy Psoriatic arthritis Rheumatoid arthritis SCC (squamous cell carcinoma) Sleep apnea Stage 2 chronic kidney disease Surgical History H/O arthroscopy of shoulder Right shoulder H/O excision of mass (09/14/21) Excision Soft Tissue Mass Left Thigh Dr. Maurice History of bilateral knee replacement History of colonoscopy History of surgical removal of skin lesion Hx of appendectomy Hx of cholecystectomy Hx of hernia repair right inguinal hernia repair S/P right knee surgery multiple reconstructive knee surgeries - work related accident in 1996. Family History Father Myocardial infarction Heart disease Mother Cancer Non-Hodgkins lymphoma Sister Ovarian cancer Brother Lung cancer Grandfather Diabetes Other Family history non-contributory Denies family history of Prostate cancer Breast cancer Colorectal cancer Social History Smoking Status: Never smoker Second Hand Exposure: No; Hx Alcohol Use: No Hx Substance Use: No Preferred Language: Tajik Communication Ability: Effective Admitting Representative Required: No Beliefs That Will Affect Care: None marital status: Current Living Situation: Spouse current occupational status: retired How many Children do You have: 3 Feels Safe at Home: Yes Childhood Exposure to Second-Hand Smoke: No caffeine: Yes during the past year weight has: remained stable Dental Care, Regularly: Yes Physical Activity Frequency: Daily Seatbelt Use: sometimes Sunscreen Use: No Assistive Devices: Cane and Walker Allergies Allergies Allergy/AdvReac Type Severity Reaction Status Date / Time codeine Allergy Intermediate HIVES (PT Verified 09/20/22 13:47 DOES NOT USE PERCOCET) Home Meds Home Medications Medication Instructions Recorded Confirmed cholecalciferol (vitamin D3) 25 5,000 unit PO QAM 11/04/20 09/21/22 mcg (1,000 unit) capsule (Vitamin D3) prednisone 5 mg tablet 0 mg PO HS 12/28/20 09/21/22 omeprazole 20 mg capsule,delayed 20 mg PO QAM 09/11/21 09/21/22 release zivqflyyzjor-xtwsyutg-lhkrfg tablet 1 tab PO DAILY 09/14/21 09/21/22 tramadol 50 mg tablet 50 - 100 mg PO Q4H PRN Pain 07/05/22 09/21/22 gabapentin 300 mg capsule 300 mg PO QAM 07/19/22 09/21/22 metolazone 2.5 mg tablet 2.5 mg PO .COMPLEX PRN WT GAIN 5 08/24/22 09/21/22 LB IN 3 DAYS. linagliptin 5 mg tablet (Tradjenta) 5 mg PO DAILY 09/17/22 09/21/22 gabapentin 300 mg capsule 600 mg PO PM 09/21/22 09/21/22 tofacitinib 11 mg tablet,extended 11 mg PO DAILY 09/21/22 09/21/22 release 24 hr Previous Rx's Medication Instructions Recorded blood sugar diagnostic (OneTouch #100 ea 09/01/21 Verio test strips) lancets 33 gauge (OneTouch Delica #100 ea 09/01/21 Lancets) metoprolol succinate 200 mg 200 mg PO QAM #90 tabs 04/16/22 tablet,extended release 24 hr atorvastatin 10 mg tablet 10 mg PO QAM #90 tabs 05/01/22 potassium chloride 10 mEq 10 meq PO QAM #90 caps 06/25/22 capsule,extended release glimepiride 2 mg tablet 2 mg PO BID #180 tabs 07/13/22 Oxygen Home #1 ea 07/19/22 alendronate 70 mg tablet (Fosamax) 70 mg PO .weekly #4 tabs 07/19/22 lisinopril 30 mg tablet 30 mg PO DAILY #90 tabs 07/24/22 empagliflozin 10 mg tablet 10 mg PO DAILY #30 tabs 07/30/22 (Jardiance) furosemide 40 mg tablet (Lasix) 60 mg PO BID #90 tabs 08/20/22 fexofenadine 180 mg tablet 180 mg PO DAILY #30 tabs 08/24/22 fluticasone propionate 50 1 spray intranasal BID #16 grams 08/24/22 mcg/actuation nasal spray,suspension nystatin 100,000 unit/gram topical 1 applic topical TID #60 grams 08/24/22 powder Portable Oxygen #1 ea 09/04/22 metformin 500 mg tablet 500 mg PO BID #180 tabs 09/06/22 hydrocortisone 2.5 % topical cream 1 applic topical BID #28.35 grams 09/20/22 ketoconazole 2 % shampoo 1 applic topical .COMPLEX #120 mL 09/20/22 triamcinolone acetonide 0.1 % 1 applic topical BID #454 grams 09/20/22 topical cream Results & Data (ED) Vital Signs Vital Signs - 24 hr 09/21/22 03:18 09/21/22 03:15 09/21/22 03:13 Temperature 38.1 C H Temperature Source Oral Pulse Rate 88 102 H Pulse Rate from SpO2 Sensor 103 H Respiratory Rate 18 18 Respiratory Effort / Characteristics Non-Labored Spontaneous Respiratory Depth Normal Respiratory Pattern Regular Blood Pressure 141/77 H Blood Pressure Mean 98 Pulse Oximetry 95 94 87 L Oxygen Delivery Method Nasal Cannula Nasal Cannula Oxygen Flow Rate 3 Sepsis Recent Fever Within 48 Hours Yes Sepsis New/Unexplained Change in Mental Status N/A Sepsis Action Taken by Nursing No Action Required Oxygen Flow Rate - Titration Pulse Oximetry Post Tiitration 09/21/22 03:15 09/21/22 03:30 09/21/22 03:45 Temperature Temperature Source Pulse Rate 93 H 87 84 Pulse Rate from SpO2 Sensor 91 H 88 85 Respiratory Rate 21 26 H 18 Respiratory Effort / Characteristics Respiratory Depth Respiratory Pattern Blood Pressure Blood Pressure Mean Pulse Oximetry 90 90 99 Oxygen Delivery Method Oxygen Flow Rate Sepsis Recent Fever Within 48 Hours Sepsis New/Unexplained Change in Mental Status Sepsis Action Taken by Nursing Oxygen Flow Rate - Titration Pulse Oximetry Post Tiitration 09/21/22 04:00 09/21/22 03:29 09/21/22 04:07 Temperature Temperature Source Pulse Rate 87 86 Pulse Rate from SpO2 Sensor 88 Respiratory Rate 22 Respiratory Effort / Characteristics Respiratory Depth Respiratory Pattern Blood Pressure 132/67 Blood Pressure Mean 88 Pulse Oximetry 95 Oxygen Delivery Method Oxygen Flow Rate Sepsis Recent Fever Within 48 Hours Sepsis New/Unexplained Change in Mental Status Sepsis Action Taken by Nursing Oxygen Flow Rate - Titration Pulse Oximetry Post Tiitration 09/21/22 04:07 09/21/22 04:15 09/21/22 04:30 Temperature Temperature Source Pulse Rate 84 86 82 Pulse Rate from SpO2 Sensor 84 86 93 H Respiratory Rate 23 24 12 Respiratory Effort / Characteristics Respiratory Depth Respiratory Pattern Blood Pressure Blood Pressure Mean Pulse Oximetry 95 96 Oxygen Delivery Method Oxygen Flow Rate Sepsis Recent Fever Within 48 Hours Sepsis New/Unexplained Change in Mental Status Sepsis Action Taken by Nursing Oxygen Flow Rate - Titration Pulse Oximetry Post Tiitration 09/21/22 04:31 09/21/22 04:31 09/21/22 04:45 Temperature Temperature Source Pulse Rate 85 89 Pulse Rate from SpO2 Sensor 85 89 Respiratory Rate 22 23 Respiratory Effort / Characteristics Respiratory Depth Respiratory Pattern Blood Pressure 121/63 Blood Pressure Mean 82 Pulse Oximetry 93 97 Oxygen Delivery Method Oxygen Flow Rate Sepsis Recent Fever Within 48 Hours Sepsis New/Unexplained Change in Mental Status Sepsis Action Taken by Nursing Oxygen Flow Rate - Titration Pulse Oximetry Post Tiitration 09/21/22 05:00 09/21/22 05:00 09/21/22 05:15 Temperature Temperature Source Pulse Rate Pulse Rate from SpO2 Sensor 83 83 Respiratory Rate Respiratory Effort / Characteristics Respiratory Depth Respiratory Pattern Blood Pressure 108/46 L Blood Pressure Mean 66 Pulse Oximetry 90 92 Oxygen Delivery Method Oxygen Flow Rate Sepsis Recent Fever Within 48 Hours Sepsis New/Unexplained Change in Mental Status Sepsis Action Taken by Nursing Oxygen Flow Rate - Titration Pulse Oximetry Post Tiitration 09/21/22 05:30 09/21/22 05:30 09/21/22 05:45 Temperature Temperature Source Pulse Rate 95 H 88 Pulse Rate from SpO2 Sensor 91 H 89 Respiratory Rate 25 H Respiratory Effort / Characteristics Respiratory Depth Respiratory Pattern Blood Pressure 95/49 L Blood Pressure Mean 64 Pulse Oximetry 94 94 Oxygen Delivery Method Oxygen Flow Rate Sepsis Recent Fever Within 48 Hours Sepsis New/Unexplained Change in Mental Status Sepsis Action Taken by Nursing Oxygen Flow Rate - Titration Pulse Oximetry Post Tiitration 09/21/22 06:00 09/21/22 06:01 09/21/22 06:01 Temperature Temperature Source Pulse Rate 84 84 Pulse Rate from SpO2 Sensor 84 101 H Respiratory Rate 20 20 Respiratory Effort / Characteristics Respiratory Depth Respiratory Pattern Blood Pressure 140/57 L Blood Pressure Mean 84 Pulse Oximetry 82 L 84 L Oxygen Delivery Method Oxygen Flow Rate Sepsis Recent Fever Within 48 Hours Sepsis New/Unexplained Change in Mental Status Sepsis Action Taken by Nursing Oxygen Flow Rate - Titration Pulse Oximetry Post Tiitration 09/21/22 06:15 09/21/22 06:30 09/21/22 06:31 Temperature Temperature Source Pulse Rate 86 85 81 Pulse Rate from SpO2 Sensor 89 91 H 82 Respiratory Rate 26 H 15 21 Respiratory Effort / Characteristics Respiratory Depth Respiratory Pattern Blood Pressure Blood Pressure Mean Pulse Oximetry 91 92 92 Oxygen Delivery Method Oxygen Flow Rate Sepsis Recent Fever Within 48 Hours Sepsis New/Unexplained Change in Mental Status Sepsis Action Taken by Nursing Oxygen Flow Rate - Titration Pulse Oximetry Post Tiitration 09/21/22 06:31 09/21/22 06:45 09/21/22 07:27 Temperature Temperature Source Pulse Rate 86 86 Pulse Rate from SpO2 Sensor 85 Respiratory Rate 14 Respiratory Effort / Characteristics Respiratory Depth Respiratory Pattern Blood Pressure 128/69 Blood Pressure Mean 88 Pulse Oximetry 92 Oxygen Delivery Method Oxygen Flow Rate Sepsis Recent Fever Within 48 Hours Sepsis New/Unexplained Change in Mental Status Sepsis Action Taken by Nursing Oxygen Flow Rate - Titration Pulse Oximetry Post Tiitration 09/21/22 08:02 09/21/22 07:00 09/21/22 07:28 Temperature Temperature Source Pulse Rate 87 Pulse Rate from SpO2 Sensor 93 H Respiratory Rate 18 Respiratory Effort / Characteristics Respiratory Depth Respiratory Pattern Blood Pressure 94/65 L Blood Pressure Mean 74 Pulse Oximetry 100 67 L Oxygen Delivery Method Oxymask Oxygen Flow Rate 5 Sepsis Recent Fever Within 48 Hours Sepsis New/Unexplained Change in Mental Status Sepsis Action Taken by Nursing Oxygen Flow Rate - Titration 4 Pulse Oximetry Post Tiitration 99 09/21/22 07:28 09/21/22 07:30 09/21/22 07:30 Temperature Temperature Source Pulse Rate 85 87 Pulse Rate from SpO2 Sensor 86 88 Respiratory Rate 20 21 Respiratory Effort / Characteristics Respiratory Depth Respiratory Pattern Blood Pressure 89/57 L Blood Pressure Mean 67 Pulse Oximetry 86 L 85 L Oxygen Delivery Method Oxygen Flow Rate Sepsis Recent Fever Within 48 Hours Sepsis New/Unexplained Change in Mental Status Sepsis Action Taken by Nursing Oxygen Flow Rate - Titration Pulse Oximetry Post Tiitration 09/21/22 07:37 09/21/22 07:37 09/21/22 08:00 Temperature Temperature Source Pulse Rate 86 Pulse Rate from SpO2 Sensor 86 Respiratory Rate 28 H Respiratory Effort / Characteristics Respiratory Depth Respiratory Pattern Blood Pressure 117/53 L 124/56 L Blood Pressure Mean 74 78 Pulse Oximetry 91 Oxygen Delivery Method Oxygen Flow Rate Sepsis Recent Fever Within 48 Hours Sepsis New/Unexplained Change in Mental Status Sepsis Action Taken by Nursing Oxygen Flow Rate - Titration Pulse Oximetry Post Tiitration 09/21/22 08:00 09/21/22 08:30 09/21/22 08:30 Temperature Temperature Source Pulse Rate 81 80 Pulse Rate from SpO2 Sensor 81 80 Respiratory Rate 23 21 Respiratory Effort / Characteristics Respiratory Depth Respiratory Pattern Blood Pressure 104/49 L Blood Pressure Mean 67 Pulse Oximetry 99 97 Oxygen Delivery Method Oxygen Flow Rate Sepsis Recent Fever Within 48 Hours Sepsis New/Unexplained Change in Mental Status Sepsis Action Taken by Nursing Oxygen Flow Rate - Titration Pulse Oximetry Post Tiitration 09/21/22 09:00 09/21/22 09:00 Temperature Temperature Source Pulse Rate 78 Pulse Rate from SpO2 Sensor 78 Respiratory Rate 21 Respiratory Effort / Characteristics Respiratory Depth Respiratory Pattern Blood Pressure 112/49 L Blood Pressure Mean 70 Pulse Oximetry 97 Oxygen Delivery Method Oxygen Flow Rate Sepsis Recent Fever Within 48 Hours Sepsis New/Unexplained Change in Mental Status Sepsis Action Taken by Nursing Oxygen Flow Rate - Titration Pulse Oximetry Post Tiitration Laboratory Data 09/21/22 03:15 09/21/22 03:15 Lab Results 09/21/22 09/21/22 09/21/22 Range/Units 03:15 03:15 03:15 WBC 11.80 H (4.8-10.8) K/ul RBC 3.80 L (4.70-6.10) M/uL Hgb 10.6 L (14.0-18.0) g/dl Hct 33.9 L (42.0-52.0) % MCV 89.2 (80.0-100.0) fL MCH 27.9 (25.0-34.0) pg MCHC 31.3 L (32.0-36.0) g/dL RDW Std Deviation 62.7 H (36.4-46.3) fL RDW Coeff of Tony 19.3 H (11.5-14.5) % Plt Count 358 (130-400) K/uL MPV 9.8 (9.4-12.4) fL Immature Gran % (Auto) 0.8 % Neut % (Auto) 91.7 % Lymph % (Auto) 2.5 % Titus % (Auto) 4.0 % Eos % (Auto) 0.7 % Baso % (Auto) 0.3 % Neut # (Auto) 10.84 H (1.40-6.50) K/uL Lymph # (Auto) 0.29 L (1.2-3.4) K/uL Titus # (Auto) 0.47 (0.11-0.59) K/uL Eos # (Auto) 0.08 (0-0.50) K/uL Baso # (Auto) 0.03 (0-0.2) K/uL Immature Gran # (Auto) 0.09 (0.01-0.20) K/uL RBC Morphology Unremarkable Sodium 133 L (136-145) mmol/L Potassium 4.9 (3.5-5.1) mmol/L Chloride 87 L (98-107) mmol/L Carbon Dioxide 32 (21-32) mmol/L Anion Gap 14 H (3-11) BUN 74 H (6-23) mg/dl Creatinine 2.17 H (0.6-1.4) mg/dl Est Cr Clr Drug Dosing 33.8 ml/min Est GFR ( Amer) 32.4 ml/min Est GFR (Non-Af Amer) 27.9 ml/min BUN/Creatinine Ratio 34.1 H (10-20) Glucose 229 H (70-99(Fasting)) mg/dl Lactate (0.4-2.0) mmol/L Calcium 9.3 (8.6-10.3) mg/dl Magnesium 2.4 (1.7-2.4) mg/dl Total Bilirubin 0.5 (0.2-1.0) mg/dl Direct Bilirubin 0.1 (0-0.2) mg/dl AST 79 H (13-39) U/L ALT 45 (7-52) U/L Alkaline Phosphatase 35 (34-104) U/L Troponin I High Sens 24.8 H (0-20) pg/ml Total Protein 8.7 H (6.0-8.3) gm/dl Albumin 3.8 (3.4-5.0) gm/dl Procalcitonin 0.61 H (0-0.5) ng/ml SARS-CoV-2 (PCR) (Negative) Influenza Type A (PCR) (Neg) Influenza Type B (PCR) (Neg) RSV (RT-PCR) (Neg) 04/14/23 04/14/23 04/14/23 Range/Units 03:15 04:04 06:46 WBC (4.8-10.8) K/ul RBC (4.70-6.10) M/uL Hgb (14.0-18.0) g/dl Hct (42.0-52.0) % MCV (80.0-100.0) fL MCH (25.0-34.0) pg MCHC (32.0-36.0) g/dL RDW Std Deviation (36.4-46.3) fL RDW Coeff of Tony (11.5-14.5) % Plt Count (130-400) K/uL MPV (9.4-12.4) fL Immature Gran % (Auto) % Neut % (Auto) % Lymph % (Auto) % Titus % (Auto) % Eos % (Auto) % Baso % (Auto) % Neut # (Auto) (1.40-6.50) K/uL Lymph # (Auto) (1.2-3.4) K/uL Titus # (Auto) (0.11-0.59) K/uL Eos # (Auto) (0-0.50) K/uL Baso # (Auto) (0-0.2) K/uL Immature Gran # (Auto) (0.01-0.20) K/uL RBC Morphology Sodium (136-145) mmol/L Potassium (3.5-5.1) mmol/L Chloride (98-107) mmol/L Carbon Dioxide (21-32) mmol/L Anion Gap (3-11) BUN (6-23) mg/dl Creatinine (0.6-1.4) mg/dl Est Cr Clr Drug Dosing ml/min Est GFR ( Amer) ml/min Est GFR (Non-Af Amer) ml/min BUN/Creatinine Ratio (10-20) Glucose (70-99(Fasting)) mg/dl Lactate 3.4 H* 2.2 H* (0.4-2.0) mmol/L Calcium (8.6-10.3) mg/dl Magnesium (1.7-2.4) mg/dl Total Bilirubin (0.2-1.0) mg/dl Direct Bilirubin (0-0.2) mg/dl AST (13-39) U/L ALT (7-52) U/L Alkaline Phosphatase (34-104) U/L Troponin I High Sens (0-20) pg/ml Total Protein (6.0-8.3) gm/dl Albumin (3.4-5.0) gm/dl Procalcitonin (0-0.5) ng/ml SARS-CoV-2 (PCR) NEGATIVE (Negative) Influenza Type A (PCR) Negative (Neg) Influenza Type B (PCR) Negative (Neg) RSV (RT-PCR) Negative (Neg) Administered Medications Albuterol (Albut/Ipratrop 3mg/0.5mg Neb 3 Ml Vial) 3 ml NEB QIDR [facility]; Protocol Stop: 10/21/22 14:59 Last Admin: 09/21/22 15:36 Dose: 3 ml Documented By: NI Atorvastatin Calcium (Atorvastatin 10 Mg Tab) 10 mg PO [facility] Stop: 10/21/22 14:29 Last Admin: 09/21/22 15:23 Dose: 10 mg Documented By: NI Empagliflozin (Empagliflozin 10 Mg Tab) 10 mg PO DAILY [facility] Stop: 10/21/22 14:29 Last Admin: 09/21/22 15:29 Dose: 10 mg Documented By: NI Fexofenadine HCl (Fexofenadine Hcl 180 Mg Tab) 180 mg PO DAILY [facility] Stop: 10/21/22 14:29 Last Admin: 09/21/22 15:23 Dose: 180 mg Documented By: NI Gabapentin (Gabapentin 300 Mg Cap) 300 mg PO [facility] Stop: 10/21/22 14:29 Last Admin: 09/21/22 15:27 Dose: 300 mg Documented By: NI Insulin Aspart (Insulin Aspart Per Unit Charge) 0 units SC [facility] Stop: 10/21/22 16:29 Last Admin: 09/21/22 17:50 Dose: Not Given Documented By: MTM Metoprolol Succinate (Metoprolol Succ 50mg Ext Rel Tab) 200 mg PO [facility] Stop: 10/21/22 14:29 Last Admin: 09/21/22 15:25 Dose: 200 mg Documented By: NI Pantoprazole Sodium (Pantoprazole 40 Mg Tab) 40 mg PO DAILY [facility] Stop: 10/21/22 14:29 Last Admin: 09/21/22 15:36 Dose: 40 mg Documented By: NI Prednisone (Prednisone 5 Mg Tab) 15 mg PO DAILY [facility] Stop: 09/22/22 11:00 Last Admin: 09/21/22 15:26 Dose: 15 mg Documented By: NI Tramadol HCl (Tramadol Hcl 50 Mg Tablet) 100 mg PO Q4H PRN PRN Reason: Pain severe 7-10 Stop: 10/21/22 14:29 Last Admin: 09/21/22 15:41 Dose: 100 mg Documented By: NI Discontinued Medications Fentanyl Citrate (Fentanyl Citrate Pf 100 Mcg/2 Ml Vial) 50 mcg IV NOW STA Stop: 09/21/22 05:34 Last Admin: 09/21/22 05:58 Dose: 100 mcg Documented By: ADRYAN Sodium Chloride (Nss 1000ml) 1,000 mls @ 999 mls/hr IV .Q1H1M ONE Stop: 09/21/22 05:32 Last Infusion: 09/21/22 09:24 Dose: 0 mls/hr Documented By: Admin: 09/21/22 05:28 Dose: 999 mls/hr Documented By: ADRYAN Cefepime HCl (Maxipime) 2,000 mg in 20 mls @ 5 mls/min IV NOW STA; Protocol Stop: 09/21/22 04:40 Last Admin: 09/21/22 05:29 Dose: 5 mls/min Documented By: ADRYAN Doxycycline Hyclate 100 mg/ (Dextrose) 110 mls @ 50 mls/hr IV NOW STA Stop: 09/21/22 09:30 Last Infusion: 09/21/22 10:37 Dose: 0 mls/hr Documented By: Admin: 09/21/22 08:10 Dose: 50 mls/hr Documented By: PEDRO Piperacillin Sod/Tazobactam (Sod 4.5 gm/ Dextrose) 120 mls @ 30 mls/hr IV Q8H [facility]; Protocol Stop: 09/28/22 14:29 Last Admin: 09/21/22 15:36 Dose: Not Given Documented By: NI Piperacillin Sod/Tazobactam (Sod 4.5 gm/ Dextrose) 120 mls @ 240 mls/hr IV NOW ONE; Protocol Stop: 09/21/22 15:29 Last Admin: 09/21/22 15:22 Dose: 240 mls/hr Documented By: NI Ondansetron HCl (Ondansetron Inj 2 Mg/Ml 2 Ml Vial) 4 mg IV NOW STA Stop: 09/21/22 05:34 Last Admin: 09/21/22 05:58 Dose: 4 mg Documented By: ADRYAN Tramadol HCl (Tramadol Hcl 50 Mg Tablet) 100 mg PO NOW STA Stop: 09/21/22 10:48 Last Admin: 09/21/22 11:05 Dose: 100 mg Documented By: PEDRO Imaging Data Radiologist's Impression: Chest X-Ray 09/21/22 03:29 SINGLE VIEW CHEST CLINICAL HISTORY: Sepsis. FINDINGS: An AP, portable, upright chest radiograph is compared to study dated 09/17/2022 and correlated with chest CT dated 07/08/2022. The heart is enlarged. There is pulmonary vascular congestion. There are asymmetric left perihilar airspace opacities. No large pleural effusion or pneumothorax is seen. The skeletal structures are osteopenic. The bony thorax is grossly intact. IMPRESSION: 1. Cardiomegaly with pulmonary vascular congestion. 2. There are asymmetric left perihilar airspace opacity this could represent asymmetric pulmonary edema and/or developing pneumonia. Clinical correlation will be required and radiographic follow-up to resolution is recommended. ACT 112: Negative or not required by law. Electronically signed by: Matt Astorga M.D. 09/21/2022 6:48 AM Discharge Plan Visit Data Chief Complaint: Fall Stated Complaint: FALL/VOMITING/DIARRHEA/WEAKNESS ED Provider: Yuko Flynn Discharge Problem: Sepsis, Acute kidney injury, Elevated troponin Patient Disposition: Admitted As Inpatient Discharge Instructions Interventions: ED Discharge Assessment Last Done: 09/21/22 11:39
[2022-09-21] MEDS ORDERED: fentaNYL citrate PF 100 MCG/2 ML VIAL IV STA (05:33)
[2022-09-21] MEDS ORDERED: ONDANSETRON INJ 2 MG/ML 2 ML VIAL IV STA (05:33)
--- NOTE | 2022-09-21 06:49 | XRay Report ---
SINGLE VIEW CHEST CLINICAL HISTORY: Sepsis. FINDINGS: An AP, portable, upright chest radiograph is compared to study dated 09/17/2022 and correlat ed with chest CT dated 07/08/2022. The heart is enlarged. There is pulmonary vascular congestion. Ther e are asymmetric left perihilar airspace opacities. No large pleural effusion or pneumothorax is seen . The skeletal structures are osteopenic. The bony thorax is grossly intact. IMPRESSION: 1. Cardiomegaly with pulmonary vascular congestion. 2. There are asymmetric left perihilar airspace opacity this could represent asymmetric pulmonary kb ma and/or developing pneumonia. Clinical correlation will be required and radiographic follow-up to r lissa is recommended. ACT 112: Negative or not required by law. Electronically signed by: Matt Astorga M.D. 09/21/2022 6:48 AM
[2022-09-21] MEDS ORDERED: DOXYCYCLINE HYCLATE 100 MG in DEXTROSE 5% 100 ML IV STA (07:19)
--- NOTE | 2022-09-21 10:40 | History & Physical Report ---
Date of Service September 21, 2022 Assessment & Plan (1) Pneumonia: Plan: 77 yo with underlying lung disease, immunosuppressed, recent hospitalization in the last 90 days requiring abx - Acute/unstable/high risk - Patient classified as hospital-acquired pna and requires pseudomonal coverage - patient does meet sepsis criteria with tachycardia + fever and source - 30 cc/kg of IVF resuscitation deferred in setting of diastolic CHF - Admit to med/tele - Obtain CT chest w/o contrast to differentiate CHF from PNA - Continue supplemental O2 with goal pulse ox 88-92% - Reviewed CBC - mild leukocytosis of 11.8 with left shift, reviewed procal which is elevated at and lactate elevated at 2.2 - Repeat lactate pending, did receive one liter of NSS - Empiric antibiotics including Zosyn (to provide anaerobic coverage) - MRSA nares has been ordered and is pending - If positive, will add Linezolid, if negative, would support rather low probability of MRSA pna and will add Daptomycin - Blood cultures collected prior to antibiotics being administered in ED, these are pending - Repeat CBC in AM ordered - Add Duonebs QIDR and q2 prn + mucinex (2) Elevated troponin: Plan: Acute/unstable/high risk - Reviewed troponin, elevated at 24.8, repeat pending - suspect myocardial demand ischemia in setting of pna, duncan - cp free and no dynamic EKG abnormalities appreciated (3) DUNCAN (acute kidney injury): Plan: DUNCAN on CKD, Acute/unstable - Reviewed chemistry panel, creatinine 2.17 which has been trending up (was 1.39 on 08/20) with a mild anion gap - Received 1L of NSS in ED, further fluids held d/t radiographic concern for CHF - reduce home dose of Lasix to 60mg once daily, and hold Lisinopril, and Metolazone for now - According to documentation, weight documented this AM as 124 kg and was documented as 133 kg on 08/20, but family reports 10-12 lbs weight gain in last week - Repeat chemistry panel in AM to monitor renal function - Renally adjust meds when needed (4) Chronic respiratory failure: Plan: Secondary to COPD, OHS, chronically on 3L at home Chronic/stable - Currently titrated up to 5L but has a sat of 97% - Would wean O2 to maintain goal O2 sat of 88-92% -has BiPAP from home (5) Rheumatoid arthritis: Plan: Chronic/stable - hold DMARD - Resume Prednisone taper, currently on 15mg, normally takes 5mg at HS all of the time - Taper 15mg 09/20 & 09/21, 10mg x 3 days, then resume 5mg daily - PT/OT eval (6) CHF (congestive heart failure): Plan: Chronic diastolic CHF Chronic/stable - Last echo 08/2022- LVEF 60-65%, mod dilated LA, no wma, mild LVH - Follows with HF clinic, last saw Capo Avilez PA-C 08/20/22 - Lasix increased from 40mg daily to 60mg BID and takes Metolazone twice a week - Hold Lasix for today in setting of DUNCAN, would resume tomorrow at 60mg daily - Continue Jardiance, Toprol XL (7) Sacral wound: Plan: Acute/unstable - POA - crystal report developer consulted, appreciate assistance - Offload - For now would use acquacel AG and cover with optifoam - Wound culture collected 09/20, pending (8) Diabetes: Plan: Chronic/stable - Last a1c 7.3% August 2022 - Will hold Metformin d/t DUNCAN - Resume Glimepiride and Tradjenta - Add Lantus and meal coverage with accuchecks AC and HS - Diabetic diet ordered (9) Diarrhea: Plan: Acute/unstable - Etiology likely viral - Obtain stool biofire + c diff - supportive care Plan Lovenox will be utilized for DVT ppx. Above plan of care has been d/w Dr. Aubrie Dubose who will also see and evaluate this patient. Further orders will be implemented as warranted. History of Present Illness Chief Complaint: weakness Primary Care Provider: JULIO Lopez Sarwat Campbell is a 77 yo M with a pmhx of oxygen-dependent COPD (chronically on 3L), HTN, obesity, OHS, RA, DMT2, and diastolic CHF who presented to the ER today accompanied by his and daughter c/o increased weakness with fall and n/v/d. Patient's provides the history as when patient is asked what lead to his ER visit today. Patient's notes that he has had progressive weakness wi th falls, and yesterday developed n/v/d. He has also had little oral intake over the last few days. This is his third ER visit since 09/15. She notes that he chronically wears 3L of nasal cannula due to COPD. He is currently on a Prednisone taper started by the ER, normally takes 5mg every day of Prednisone and is currently is on day 3 of taking 15mg. She also notes that he has a wound at the bottom of his spine above his buttocks that he was seen at dermatology for and had a culture collected on 09/20 due to concern for infection. His work up in the ER today reveals a mildly elevated wbc of 11.80 with a left shift, elevated procalcitonin and lactate and also elevated creatinine of 2.17 above h is baseline. He was seen by the HF clinic about one month ago with increase in his Lasix from 40mg daily to 60mg BID. His troponin is also mildly elevated at 24.8. CXR demonstrates cardiomegaly with PVC as well as a left perihilar opacity concerning for pneumonia. He was medicated with a dose of Cefepime, one liter of NSS, and Zofran. [facility]. Allergies Allergy/AdvReac Type Severity Reaction Status Date / Time codeine Allergy Intermediate HIVES (PT Verified 09/20/22 13:47 DOES NOT USE PERCOCET) Home Medications Medication Instructions Recorded Confirmed Type cholecalciferol (vitamin D3) 25 5,000 unit PO QAM 11/04/20 09/21/22 History mcg (1,000 unit) capsule (Vitamin D3) prednisone 5 mg tablet 0 mg PO HS 12/28/20 09/21/22 History blood sugar diagnostic (ClauseMatchTouch #100 ea 09/01/21 09/20/22 Rx Verio test strips) lancets 33 gauge (OneTouch Delica #100 ea 09/01/21 09/20/22 Rx Lancets) omeprazole 20 mg capsule,delayed 20 mg PO QAM 09/11/21 09/21/22 History release vlyeetplyptn-hfbziruo-ygcehs tablet 1 tab PO DAILY 09/14/21 09/21/22 History metoprolol succinate 200 mg 200 mg PO QAM #90 tabs 04/16/22 09/21/22 Rx tablet,extended release 24 hr atorvastatin 10 mg tablet 10 mg PO QAM #90 tabs 05/01/22 09/21/22 Rx potassium chloride 10 mEq 10 meq PO QAM #90 caps 06/25/22 09/21/22 Rx capsule,extended release tramadol 50 mg tablet 50 - 100 mg PO Q4H PRN Pain 07/05/22 09/21/22 History glimepiride 2 mg tablet 2 mg PO BID #180 tabs 07/13/22 09/21/22 Rx Oxygen Home #1 ea 07/19/22 09/20/22 Rx alendronate 70 mg tablet (Fosamax) 70 mg PO .weekly #4 tabs 07/19/22 09/21/22 Rx gabapentin 300 mg capsule 300 mg PO QAM 07/19/22 09/21/22 History lisinopril 30 mg tablet 30 mg PO DAILY #90 tabs 07/24/22 09/21/22 Rx empagliflozin 10 mg tablet 10 mg PO DAILY #30 tabs 07/30/22 09/21/22 Rx (Jardiance) furosemide 40 mg tablet (Lasix) 60 mg PO BID #90 tabs 08/20/22 09/21/22 Rx fexofenadine 180 mg tablet 180 mg PO DAILY #30 tabs 08/24/22 09/21/22 Rx fluticasone propionate 50 1 spray intranasal BID #16 grams 08/24/22 09/21/22 Rx mcg/actuation nasal spray,suspension metolazone 2.5 mg tablet 2.5 mg PO .COMPLEX PRN WT GAIN 5 08/24/22 09/21/22 History LB IN 3 DAYS. nystatin 100,000 unit/gram topical 1 applic topical TID #60 grams 08/24/22 09/21/22 Rx powder Portable Oxygen #1 ea 09/04/22 09/20/22 Rx metformin 500 mg tablet 500 mg PO BID #180 tabs 09/06/22 09/21/22 Rx linagliptin 5 mg tablet (Tradjenta) 5 mg PO DAILY 09/17/22 09/21/22 History hydrocortisone 2.5 % topical cream 1 applic topical BID #28.35 grams 09/20/22 09/21/22 Rx ketoconazole 2 % shampoo 1 applic topical .COMPLEX #120 mL 09/20/22 09/21/22 Rx triamcinolone acetonide 0.1 % 1 applic topical BID #454 grams 09/20/22 09/21/22 Rx topical cream gabapentin 300 mg capsule 600 mg PO PM 09/21/22 09/21/22 History tofacitinib 11 mg tablet,extended 11 mg PO DAILY 09/21/22 09/21/22 History release 24 hr Past Med/Surg History Medical History Acute hypoxemic respiratory failure Treated inpatient [facility] 08/28-08/31/21 Acute respiratory failure with hypoxia Acute sinusitis Chronic anemia hgb stable in the 11's CKD (chronic kidney disease), stage III COPD (chronic obstructive pulmonary disease) Per remote records, pt/family denies Diabetes NIDDM GERD (gastroesophageal reflux disease) Hyperlipidemia Hypertension MGUS (monoclonal gammopathy of unknown significance) Per records Morbid obesity On home oxygen therapy 2lpm HS + PRN (with walking/exertion during the day) Peripheral neuropathy Psoriatic arthritis Rheumatoid arthritis SCC (squamous cell carcinoma) Sleep apnea Stage 2 chronic kidney disease Surgical History H/O arthroscopy of shoulder Right shoulder H/O excision of mass (09/14/21) Excision Soft Tissue Mass Left Thigh Dr. Maurice History of bilateral knee replacement History of colonoscopy History of surgical removal of skin lesion Hx of appendectomy Hx of cholecystectomy Hx of hernia repair right inguinal hernia repair S/P right knee surgery multiple reconstructive knee surgeries - work related accident in 1996. Family History Father Myocardial infarction Heart disease Mother Cancer Non-Hodgkins lymphoma Sister Ovarian cancer Brother Lung cancer Grandfather Diabetes Other Family history non-contributory Denies family history of Prostate cancer Breast cancer Colorectal cancer Social History Smoking Status: Never smoker Second Hand Exposure: No; Hx Alcohol Use: No Hx Substance Use: No Preferred Language: Pashto Communication Ability: Effective Kinder Teacher Required: No Beliefs That Will Affect Care: None marital status: Current Living Situation: Spouse current occupational status: retired How many Children do You have: 3 Feels Safe at Home: Yes Childhood Exposure to Second-Hand Smoke: No caffeine: Yes during the past year weight has: remained stable Dental Care, Regularly: Yes Physical Activity Frequency: Daily Seatbelt Use: sometimes Sunscreen Use: No Assistive Devices: Cane and Walker Physical Exam Physical Exam: GENERAL: 77 yo morbidly obese WM who appears chronically ill but nontoxic. NAD. LUNGS: Nonlabored, diminished in bases no obvious w/r/r CARDIOVASCULAR: Regular rate and rhythm. ABDOMEN: Soft, non-tender and non-distended. BS normoactive x 4 quad. EXTREMITIES: 2+ edema. Non-tender. Peripheral pulses +2/4. SKIN: sacral wound noted covered with optifoam. No obvious erythema expanding from wound. Results & Data Results & Data Vital Signs (Past 12 Hours) Vital Signs Temp Pulse Resp BP Pulse Ox O2 Del Method O2 Flow Rate 09/21/22 09:00 78 21 97 09/21/22 09:00 112/49 L 09/21/22 08:30 80 21 97 09/21/22 08:30 104/49 L 09/21/22 08:00 81 23 99 09/21/22 08:00 124/56 L 09/21/22 07:37 86 28 H 91 09/21/22 07:37 117/53 L 09/21/22 07:30 87 21 85 L 09/21/22 07:30 89/57 L 09/21/22 07:28 85 20 86 L 09/21/22 07:28 94/65 L 09/21/22 07:00 87 18 67 L 09/21/22 08:02 100 Oxymask 5 09/21/22 07:27 86 09/21/22 06:45 86 14 92 09/21/22 06:31 128/69 09/21/22 06:31 81 21 92 09/21/22 06:30 85 15 92 09/21/22 06:15 86 26 H 91 09/21/22 06:01 140/57 L 09/21/22 06:01 84 20 84 L 09/21/22 06:00 84 20 82 L 09/21/22 05:45 88 25 H 94 09/21/22 05:30 95 H 94 09/21/22 05:30 95/49 L 09/21/22 05:15 92 09/21/22 05:00 90 09/21/22 05:00 108/46 L 09/21/22 04:45 89 23 97 09/21/22 04:31 85 22 93 09/21/22 04:31 121/63 09/21/22 04:30 82 12 09/21/22 04:15 86 24 96 09/21/22 04:07 84 23 95 09/21/22 04:07 132/67 09/21/22 03:29 86 09/21/22 04:00 87 22 95 09/21/22 03:45 84 18 99 09/21/22 03:30 87 26 H 90 09/21/22 03:15 93 H 21 90 09/21/22 03:13 102 H 18 87 L 09/21/22 03:15 94 Nasal Cannula 09/21/22 03:18 38.1 C H 88 18 141/77 H 95 Nasal Cannula 3 Laboratory Results 09/21/22 03:15 09/21/22 03:15 Diagnostic Findings Chest X-Ray 09/21/22 03:29 SINGLE VIEW CHEST CLINICAL HISTORY: Sepsis. FINDINGS: An AP, portable, upright chest radiograph is compared to study dated 09/17/2022 and correlated with chest CT dated 07/08/2022. The heart is enlarged. There is pulmonary vascular congestion. There are asymmetric left perihilar airspace opacities. No large pleural effusion or pneumothorax is seen. The ske letal structures are osteopenic. The bony thorax is grossly intact. IMPRESSION: 1. Cardiomegaly with pulmonary vascular congestion. 2. There are asymmetric left perihilar airspace opacity this could represent asymmetric pulmonary edema and/or developing pneumonia. Clinical correlation will be required and radiographic follow-up to resolution is recommended. ACT 112: Negative or not required by law. Electronically signed by: Matt Astorga M.D. 09/21/2022 6:48 AM Supervising Physician Co-Signing Physician Notes PA Supervision Note: I personally saw and examined the patient. I verified all carlos points and agree with GENTRY Piedra with the following exceptions and/or additions: S-Pt presents with worsening generalized weakness, tremors, and 2 falls in the last week. He had N/V and profuse diarrhea followed by a fall during a toilet transfer which prompted being brought to the ER.He has been more confused over the last few days as well as per family. He has psoriasis and an open buttocks wound that was cultured by DERM yesterday. He has not had any other symptoms/URI symptoms, cough, etc. He does complain of bilateral rib pain since his fall last night, and has had right knee pain since his fall on Saturday. Has chronic bilateral shoulder and hand/wrist pain from his psoriatic arthritis. No urinary issues. Discussed his care with his , 2 daughters, and son in law all at bedside. In ER, found to be febrile, hypotensive, lethargic at times. He was given Cefepime for possible PNA, fentanyl for pain, and small amount of IVFs. History and ROS reviewed otherwise as above O- Vitals reviewed Gen: morbidly obese, drowsy but wakes up and answers questions, NAD HEENT: [anicteric sclerae, EOMI] CV: [RRR no mgr nl S1S2; +TTP over bilateral lower ribs, small amount of bruising on left anterior ribs Pulm: [CTAB no wcr, OxyMask in place] Abd: [+BS softly distended, NT ND no masses or hernias] Ext: [1+ edema legs bilat, bilat TKA scars, right knee mild effusion, no wounds on feet, no erythema of joints] Skin: multiple pink macular lesions with thickened white crusted skin over body c/w psoriasis, gluteal cleft with psoriatic lesion with cracked skin and surrounding erythema, scant serous drainage Neuro: having bilateral arm tremors but is awake and able to answer questions Labs, Rads, and ECG reviewed A/P-77 yo male here with SIRS with unknown source but possible PNA vs bacteremia from buttocks wound growing GNR. Also with diarrhea so could have gastroenteritis as source -continue broad spectrum abx with Zosyn and Dapto to cover sepsis, bacteremia, wound infection -follow BCXs, Wound cx -Consult Wound care -check Stool PCR and C. diff -continue home O2 and ordered home BiPAP for naps and hs -DUNCAN-received some fluids in ER, reducing lasix dose, continue Jardiance, hold metalozone -needs stress dose steroids for hypotension--> change taper to prednisone 20mg daily for now (home dose 5mg daily for years, has been on recent burst and taper for joint pains) PG Care Time/CCT Total # of Minutes Spent Total Time Spent with Patient: Total time spent is greater than 50% in coordination of care (as documented) at patient's floor/unit and/or counseling patient: Coding Level of Care Code 57876 INT INP/OBS CARE 3/75MIN Diagnoses Pneumonia J18.9 Aspiration pneumonia type: unspecified Laterality: unspecified laterality Lung location: unspecified part of lung Elevated troponin R79.89 DUNCAN (acute kidney injury) N17.9 Chronic respiratory failure J96.10 Rheumatoid arthritis M06.9 Rheumatoid arthritis location: unspecified site Rheumatoid factor presence: unspecified presence CHF (congestive heart failure) I50.9 Sacral wound S31.000A Diabetes E11.9 Diarrhea R19.7 (1) Pneumonia Aspiration pneumonia type: unspecified Laterality: unspecified laterality Lung location: unspecified part of lung (5) Rheumatoid arthritis Rheumatoid arthritis location: unspecified site Rheumatoid factor presence: unspecified presence Qualified Code(s): M06.9 - Rheumatoid arthritis, unspecified
[2022-09-21] MEDS ORDERED: traMADol HCL 50 MG TABLET PO STA (10:47)
--- NOTE | 2022-09-21 12:08 | CT Scan Report ---
CT SCAN OF THE CHEST WITHOUT IV CONTRAST CLINICAL HISTORY: Sepsis. COMPARISON STUDY: Chest x-ray dated 09/21/2022. Chest CT dated 07/08/2022. TECHNIQUE: CT scan of the thorax was performed from the thoracic inlet to the upper abdomen. Images are reviewed in the axial, sagittal, and coronal planes. IV contrast was not administered for this ex amination as per the referring clinician. A dose lowering technique was utilized adhering to the raisa Gaitan. The examination is significantly degraded by motion artifact. The examination is al so degraded by large body habitus, and severe streak artifact from the body wall abutting the CT maryam ry. CT DOSE: 981.38 mGy.cm FINDINGS: Thyroid: Imaged portions of the thyroid gland are normal in size and attenuation. Thoracic aorta: There is mild atherosclerotic calcification of the thoracic aorta, which is normal in caliber and demonstrates 4-vessel variant arch anatomy. Heart: The heart is enlarged and without pericardial effusion. The coronary arteries and aortic valve leaflets are densely calcified. Lungs and pleural spaces: Evaluation of the lung parenchyma is degraded by motion artifact. The trach ea and central airways are clear. There is no airspace consolidation typical for pneumonia. There are trace pleural effusions with dependent atelectasis. A 5 mm peribronchial nodule versus lymph node in the left upper lobe is again seen on image #62. Mediastinum: There is no mediastinal lymphadenopathy. Cristela: Not well assessed without IV contrast. Axillae: There is no axillary lymphadenopathy. Upper abdomen: The liver is enlarged and steatotic. There is a small hiatal hernia. A calcified granu josue is noted in the liver. Skeletal structures: The skeletal structures are osteopenic. Spondylotic change and hyperkyphosis is noted in the thoracic spine. No lytic or blastic bony lesions are seen. Arthritic change is seen in t he shoulders. IMPRESSION: 1. Cardiomegaly and trace pleural effusions. 2. Dependent atelectasis is noted at the lung bases. There is no airspace consolidation typical for p neumonia. 3. Hepatic steatosis. 4. Additional findings as above. ACT 112: Negative or not required by law. Electronically signed by: Matt Astorga M.D. 09/21/2022 12:06 PM
[2022-09-21] MEDS ORDERED: ACETAMINOPHEN 325 MG TAB PO PRN (14:30)
[2022-09-21] MEDS ORDERED: CARBOHYDRATES FOR HYPOGLYCEMIA PO PRN (14:30)
[2022-09-21] MEDS ORDERED: NON-FORMULARY MEDICATION (Linagliptin [Tradjenta] 5 mg tablet) PO SCH (14:30)
[2022-09-21] MEDS ORDERED: ALUMINUM/MAGNESIUM SUSP 30 ML UDC PO PRN (14:30)
[2022-09-21] MEDS ORDERED: GLUCOSE 40% GEL 15 GM TUBE PO PRN (14:30)
[2022-09-21] MEDS ORDERED: GLUCAGON FOR INJ 1 MG VIAL SQ PRN (14:30)
[2022-09-21] MEDS ORDERED: MAGNESIUM HYDROXIDE SUSP 30 ML UDC PO PRN (14:30)
[2022-09-21] MEDS ORDERED: GLIMEPIRIDE 2 MG TAB PO SCH (14:30)
[2022-09-21] MEDS ORDERED: PIPERACILLIN/TAZOBACTAM 4.5 GM in DEXTROSE 5% 100 ML IV SCH (14:30)
[2022-09-21] MEDS ORDERED: ONDANSETRON INJ 2 MG/ML 2 ML VIAL IV PRN (14:30)
[2022-09-21] MEDS ORDERED: GLUCOSE 10 TAB/TUBE PO PRN (14:30)
[2022-09-21] MEDS ORDERED: predniSONE 5 MG TAB PO SCH (14:30)
[2022-09-21] MEDS ORDERED: DEXTROSE 50% 50 ML SYRINGE IV PRN (14:30)
[2022-09-21 14:37] LABS: Appearance Urine Clear (Clear); Bilirubin Urine Negative (Negative); Blood Urine Negative (Negative); Color Urine Dark Yellow; Glucose Urine UA Negative (Negative); Ketones Urine Negative (Negative); Leukocyte Esterase Urine Negative (Negative); Nitrite Urine Negative (Negative); Protein Urine Negative (Negative); Specific Gravity Urine 1.018 (1.000-1.030); Urobilinogen Urine Negative (Negative)
[2022-09-21] MEDS ORDERED: PIPERACILLIN/TAZOBACTAM 4.5 GM (over 30 mins) IV ONE (15:00)
[2022-09-21] MEDS: ATORVASTATIN 10 MG TAB PO SCH (15:23)
[2022-09-21] MEDS: FEXOFENADINE HCL 180 MG TAB PO SCH (15:23)
[2022-09-21] MEDS: METOPROLOL SUCC 50MG EXT REL TAB PO SCH (15:25)
[2022-09-21] MEDS: GABAPENTIN 300 MG CAP PO SCH ×2 (15:27→19:57)
[2022-09-21] MEDS: EMPAGLIFLOZIN 10 MG TAB PO SCH (15:29)
[2022-09-21] MEDS: PANTOprazole 40 MG TAB PO SCH (15:36)
[2022-09-21] MEDS: ALBUT/IPRATROP 3MG/0.5MG NEB 3 ML VIAL NEB SCH ×2 (15:36→20:09)
[2022-09-21] MEDS: traMADol HCL 50 MG TABLET PO PRN (15:41)
[2022-09-21] MEDS: INSULIN ASPART PER UNIT CHARGE SC SCH ×2 (17:50→21:55)
[2022-09-21] MEDS ORDERED: DAPTOmycin 525 MG in SYRINGE 0 ML IV SCH (18:00)
[2022-09-21] MEDS: ACETAMINOPHEN 500 MG TAB PO PRN (18:44)
[2022-09-21] MEDS ORDERED: predniSONE 20 MG TAB PO STA (18:45)
[2022-09-21] MEDS: PIPERACILLIN/TAZOBACTAM 4.5 GM in DEXTROSE 5% 100 ML IV SCH (19:57)
[2022-09-21] MEDS: FLUTICASONE PROPIONATE NA SPR 16 GM BTL NAE SCH (19:57)
[2022-09-21] MEDS: LIDOCAINE 5% 1 PATCH TD SCH (19:58)
[2022-09-21] MEDS ORDERED: guaiFENesin 600 MG TABCR PO SCH (21:00)
[2022-09-21] MEDS: LANTUS PER UNIT CHARGE SQ SCH (21:55)
[2022-09-22] MEDS: PIPERACILLIN/TAZOBACTAM 4.5 GM in DEXTROSE 5% 100 ML IV SCH ×3 (03:54→20:13)
--- NOTE | 2022-09-22 05:41 | Electrocardiogram Report ---
Test Reason : Blood Pressure : / mmHG Vent. Rate : 089 BPM Atrial Rate : 089 BPM P-R Int : 222 ms QRS Dur : 076 ms QT Int : 338 ms P-R-T Axes : 081 049 060 degrees QTc Int : 411 ms Poor data quality, interpretation may be adversely affected Sinus rhythm with 1st degree A-V block Low voltage QRS Abnormal ECG When compared with ECG of 17-SEP-2022 16:16, Premature atrial complexes are no longer Present Confirmed by Burton Thao ([id number]) on 09/22/2022 5:40:40 AM Referred By: REFERRED SELF Confirmed By:Burton Thao
[2022-09-22 06:32] LABS: Hematocrit (blood only) 28.2 % (42.0-52.0); Hemoglobin 8.9 g/dl (14.0-18.0); Mean Corpuscular Hemoglobin 27.7 pg (25.0-34.0); Mean Corpuscular Hgb Conc 31.6 g/dL (32.0-36.0); Mean Corpuscular Volume 87.9 fL (80.0-100.0); Mean Platelet Volume 9.6 fL (9.4-12.4); Platelet Count 235 K/uL (130-400); RDW Coefficient of Variation 19.3 % (11.5-14.5); RDW Standard Deviation 62.6 fL (36.4-46.3); Red Blood Count 3.21 M/uL (4.70-6.10); White Blood Count 9.36 K/ul (4.8-10.8)
[2022-09-22 06:51] LABS: Albumin Globulin Ratio 0.7 (0.9-2); Albumin Level 3.2 gm/dl (3.4-5.0); BUN Creatinine Ratio 35.6 (10-20); Bilirubin,Total 0.6 mg/dl (0.2-1.0); Calcium 8.1 mg/dl (8.6-10.3); Creatinine Clr Calc Pharmacy 31.5 ml/min; Est GFR (African American) 27.7 ml/min; Est GFR (Non-African American) 23.9 ml/min; Globulin 4.4 gm/dl (2.5-4.0); Magnesium 2.6 mg/dl (1.7-2.4); Potassium 4.9 mmol/L (3.5-5.1); Total Protein 7.6 gm/dl (6.0-8.3)
[2022-09-22 06:57] LABS: Basophils # (auto) 0.02 K/uL (0-0.2); Basophils % (auto) 0.2 %; Eosinophils # (auto) 0.01 K/uL (0-0.50); Eosinophils % (auto) 0.1 %; Immature Granulocytes # (auto) 0.09 K/uL (0.01-0.20); Lymphocytes # (auto) 0.25 K/uL (1.2-3.4); Lymphocytes % (auto) 2.7 %; Monocytes # (auto) 0.33 K/uL (0.11-0.59); Monocytes % (auto) 3.5 %; Neutrophils # (auto) 8.66 K/uL (1.40-6.50); Neutrophils % (auto) 92.5 %; RBC Morphology Unremarkable
[2022-09-22] MEDS: ALBUT/IPRATROP 3MG/0.5MG NEB 3 ML VIAL NEB SCH (07:26)
[2022-09-22] MEDS: FEXOFENADINE HCL 180 MG TAB PO SCH (08:08)
[2022-09-22] MEDS: ATORVASTATIN 10 MG TAB PO SCH (08:08)
[2022-09-22] MEDS: predniSONE 20 MG TAB PO SCH (08:08)
[2022-09-22] MEDS: PANTOprazole 40 MG TAB PO SCH (08:08)
[2022-09-22] MEDS: FLUTICASONE PROPIONATE NA SPR 16 GM BTL NAE SCH ×2 (08:10→20:14)
[2022-09-22] MEDS: ENOXAPARIN INJ 40 MG/0.4 ML SYR SQ SCH ×2 (08:10→08:21)
[2022-09-22] MEDS: GABAPENTIN 300 MG CAP PO SCH ×2 (08:10→20:15)
[2022-09-22] MEDS: EMPAGLIFLOZIN 10 MG TAB PO SCH (08:11)
[2022-09-22] MEDS: LANTUS PER UNIT CHARGE SQ SCH ×2 (08:18→21:58)
[2022-09-22] MEDS: INSULIN ASPART PER UNIT CHARGE SC SCH ×4 (08:19→21:58)
[2022-09-22] MEDS: LIDOCAINE 5% 1 PATCH TD SCH (08:21)
[2022-09-22] MEDS: METOPROLOL SUCC 50MG EXT REL TAB PO SCH (08:21)
[2022-09-22] MEDS ORDERED: FUROSEMIDE 20 MG TAB PO SCH (09:00)
[2022-09-22] MEDS: ACETAMINOPHEN 500 MG TAB PO PRN ×2 (09:49→16:59)
[2022-09-22 13:19] LABS: BUN Creatinine Ratio 37.3 (10-20); Calcium 8.1 mg/dl (8.6-10.3); Creatinine Clr Calc Pharmacy 34.2 ml/min; Est GFR (African American) 30.5 ml/min; Est GFR (Non-African American) 26.3 ml/min; Potassium 4.4 mmol/L (3.5-5.1)
[2022-09-22] MEDS: traMADol HCL 50 MG TABLET PO PRN (20:14)
--- NOTE | 2022-09-22 21:08 | Hospitalist Progress Note ---
Date of Service September 22, 2022 Assessment & Plan (1) Weakness: Plan: 77 yo with underlying COPD (on 3L baseline O2), immunosuppressed on chronic prednisone therapy, admitted for weakness + nausea/vomiting/diarrhea - patient does meet sepsis criteria with tachycardia + fever - etiology uncertain: suspect viral gastroenteritis + infected sacral wound. pneumonia initially thought to be likely source on admission given appearance of CXR, however on clarification of CT --> no evidence of PNA - 30 cc/kg of IVF resuscitation deferred in setting of diastolic CHF - Reviewed CBC - mild leukocytosis of 11.8 with left shift--> normalized today - reviewed procal which is elevated at 0.61 - lactate elevated at 2.2 --> has since cleared with IV hydration - Empiric antibiotics including Zosyn (to provide anaerobic coverage) + Dapto (MRSA given risk of hospital acquired infection) - MRSA nares negative --> Dapto stopped 09/22/22 - Blood cultures collected prior to antibiotics being administered in ED, no growth to date - Trend cultures + CBC (2) Elevated troponin: Plan: - troponin elevated at 24.8 on admission --> has since downtrended - suspect myocardial demand ischemia in setting of pna, duncan - patient denies chest pain and no dynamic EKG abnormalities appreciated (3) DUNCAN (acute kidney injury): Plan: - DUNCAN on CKD, - creatinine 2.47 today, up from 2.17 on admission (was 1.39 on 08/20) with a mild anion gap - Received 1L of NSS in ED, further fluids held d/t radiographic concern for CHF - reduce home dose of Lasix to 60mg once daily, and hold Lisinopril and Metolazone - Renally adjust meds when needed - trend BMP (4) Chronic respiratory failure: Plan: - Secondary to COPD + obesity hypoventilation syndrome - chronically on 3L O2 at home - Would wean O2 to maintain goal O2 sat of 88-92% - has BiPAP from home for qhs use (5) Rheumatoid arthritis: Plan: - Chronic/stable - hold DMARD - Patient had been on a prednisone taper however given his hypotension on admission stress dose steroids were used - continue prednisone 20mg daily until BP improves (6) CHF (congestive heart failure): Plan: - Chronic diastolic CHF - Last echo 08/2022- LVEF 60-65%, mod dilated LA, no wma, mild LVH - Chest CT showing trace pleural effusions - According to documentation, weight documented this AM as 124 kg and was d ocumented as 133 kg on 08/20, but family reports 10-12 lbs weight gain in last week - Follows with HF clinic, last saw Capo Avliez PA-C 08/20/22 at which time his Lasix increased from 40mg daily to 60mg BID and takes Metolazone twice a week - Hold Lasix and metolazone for today in setting of DUNCAN, would resume tomorrow at 60mg daily if renal function improves - Continue Jardiance, Toprol XL (7) Sacral wound: Plan: - formulator consulted, appreciate assistance - Offload - For now would use acquacel AG and cover with optifoam - Wound culture collected 09/20, growing carvajal sensitive pseudomonas - continue Zosyn - location is a known place where he gets psoriatic lesions (and places steroid cream --> steroid cream can thin the skin and make it easier to breakdown) (8) Diabetes: Plan: Chronic/stable - Last a1c 7.3% August 2022 - Will hold Metformin d/t DUNCAN - Resume Glimepiride and Tradjenta - Add Lantus and meal coverage with accuchecks AC and HS - Diabetic diet ordered (9) Diarrhea: Plan: Acute/unstable - Etiology likely viral - Obtain stool biofire + c diff --> nursing unable to collect suggesting diarrhea has resolved - supportive care Plan Lovenox will be utilized for DVT ppx. Above plan of care has been d/w Dr. Aubrie Dubose who will also see and evaluate this patient. Further orders will be implemented as warranted. PT/OT tanna Admission and Anticipated Discharge Date Admission Date: September 21, 2022 Subjective Patient says his ribs hurt -- his daughter is here who was a former INDUSTRIAL ORGANIZATION MANAGER and she provides helpful information Review of Systems Review of Systems: All systems reviewed & are unremarkable except as noted in HPI & below Physical Exam Constitutional: WD/WN, vitals as above + obese Eyes: + anicteric sclerae ENMT: external ear and nose normal, oropharynx normal Neck: trachea midline, no thyromegaly Respiratory: normal respiratory effort, lungs clear to auscultation Cardiovascular: RRR, no murmur, no edema Gastrointestinal (Abdomen): normal bowel sounds, soft, nontender, no hepatosplenomegaly Musculoskeletal: Head/Neck/Chest: normocephalic and head atraumatic Skin: sacral wound noted covered with optifoam. No obvious erythema expanding from wound; mild in appearance well circumscribed pink plaques with overlaying silvery scale Results & Data Results & Data Vital Signs (Past 12 Hours) Vital Signs Temp Pulse Pulse Pulse Resp BP BP 09/22/22 20:25 09/22/22 19:47 36.5 C 61 18 112/69 09/22/22 15:36 36.6 C 62 18 98/59 L 09/22/22 14:49 61 09/22/22 12:51 36.5 C 61 16 108/68 09/22/22 09:59 09/22/22 09:47 36.5 C 61 18 104/64 Pulse Ox O2 Del Method O2 Flow Rate 09/22/22 20:25 Nasal Cannula, BiPAP 4 09/22/22 19:47 92 Nasal Cannula 4 09/22/22 15:36 92 Nasal Cannula 3 09/22/22 14:49 09/22/22 12:51 92 Nasal Cannula 4 09/22/22 09:59 Nasal Cannula 4 09/22/22 09:47 94 Nasal Cannula 4 PG Care Time/CCT Total # of Minutes Spent Total Time Spent with Patient: Total time spent is greater than 50% in coordination of care (as documented) at patient's floor/unit and/or counseling patient: Coding [place] [address] SUB INP/OBS CARE 2/35MIN Patient Type Established Diagnoses Weakness R53.1 Elevated troponin R79.89 DUNCAN (acute kidney injury) N17.9 Chronic respiratory failure J96.10 Rheumatoid arthritis M06.9 Rheumatoid arthritis location: unspecified site Rheumatoid factor presence: unspecified presence CHF (congestive heart failure) I50.9 Sacral wound S31.000A Diabetes E11.9 Diarrhea R19.7 (5) Rheumatoid arthritis Rheumatoid arthritis location: unspecified site Rheumatoid factor presence: unspecified presence Qualified Code(s): M06.9 - Rheumatoid arthritis, unspecified
[2022-09-23] MEDS: PIPERACILLIN/TAZOBACTAM 4.5 GM in DEXTROSE 5% 100 ML IV SCH (03:56)
[2022-09-23 06:18] LABS: Basophils # (auto) 0.01 K/uL (0-0.2); Basophils % (auto) 0.1 %; Eosinophils # (auto) 0.02 K/uL (0-0.50); Eosinophils % (auto) 0.2 %; Hematocrit (blood only) 29.5 % (42.0-52.0); Hemoglobin 9.4 g/dl (14.0-18.0); Immature Granulocytes # (auto) 0.06 K/uL (0.01-0.20); Immature Granulocytes % (auto) 0.7 %; Lymphocytes # (auto) 0.28 K/uL (1.2-3.4); Lymphocytes % (auto) 3.3 %; Mean Corpuscular Hemoglobin 27.8 pg (25.0-34.0); Mean Corpuscular Hgb Conc 31.9 g/dL (32.0-36.0); Mean Corpuscular Volume 87.3 fL (80.0-100.0); Mean Platelet Volume 9.8 fL (9.4-12.4); Monocytes # (auto) 0.67 K/uL (0.11-0.59); Neutrophils # (auto) 7.33 K/uL (1.40-6.50); Neutrophils % (auto) 87.7 %; Platelet Count 247 K/uL (130-400); RDW Coefficient of Variation 18.4 % (11.5-14.5); Red Blood Count 3.38 M/uL (4.70-6.10); White Blood Count 8.37 K/ul (4.8-10.8)
[2022-09-23 06:34] LABS: Albumin Globulin Ratio 0.7 (0.9-2); Albumin Level 3.2 gm/dl (3.4-5.0); BUN Creatinine Ratio 42.9 (10-20); Bilirubin,Total 0.4 mg/dl (0.2-1.0); Calcium 8.1 mg/dl (8.6-10.3); Creatinine Clr Calc Pharmacy 48.1 ml/min; Est GFR (African American) 46.4 ml/min; Est GFR (Non-African American) 40.1 ml/min; Globulin 4.3 gm/dl (2.5-4.0); Potassium 4.3 mmol/L (3.5-5.1); Total Protein 7.5 gm/dl (6.0-8.3)
[2022-09-23] MEDS: ENOXAPARIN INJ 40 MG/0.4 ML SYR SQ SCH (08:14)
[2022-09-23] MEDS: INSULIN ASPART PER UNIT CHARGE SC SCH ×4 (08:15→21:20)
[2022-09-23] MEDS: LANTUS PER UNIT CHARGE SQ SCH ×2 (08:17→21:21)
[2022-09-23] MEDS: ACETAMINOPHEN 500 MG TAB PO PRN (08:17)
[2022-09-23] MEDS: FLUTICASONE PROPIONATE NA SPR 16 GM BTL NAE SCH ×2 (08:18→19:47)
[2022-09-23] MEDS: LIDOCAINE 5% 1 PATCH TD SCH (08:19)
[2022-09-23] MEDS: predniSONE 20 MG TAB PO SCH (08:20)
[2022-09-23] MEDS: METOPROLOL SUCC 50MG EXT REL TAB PO SCH (08:20)
[2022-09-23] MEDS: ATORVASTATIN 10 MG TAB PO SCH (08:20)
[2022-09-23] MEDS: FEXOFENADINE HCL 180 MG TAB PO SCH (08:20)
[2022-09-23] MEDS: EMPAGLIFLOZIN 10 MG TAB PO SCH (08:20)
[2022-09-23] MEDS: PANTOprazole 40 MG TAB PO SCH (08:20)
[2022-09-23] MEDS: GABAPENTIN 300 MG CAP PO SCH ×2 (08:20→19:47)
[2022-09-23] MEDS ORDERED: predniSONE 10 MG TABLET PO SCH (09:00)
[2022-09-23] MEDS: FUROSEMIDE 20 MG TAB PO SCH (09:12)
[2022-09-23] MEDS: CIPROFLOXACIN 500 MG TAB PO SCH ×2 (09:12→19:46)
--- NOTE | 2022-09-23 18:18 | Hospitalist Progress Note ---
Date of Service September 23, 2022 Assessment & Plan (1) Weakness: Plan: 77 yo with underlying COPD (on 3L baseline O2), immunosuppressed on chronic prednisone therapy, admitted for weakness + nausea/vomiting/diarrhea - patient met sepsis criteria on admission with tachycardia + fever --> has since clinically improved - etiology uncertain: suspect viral gastroenteritis + infected sacral wound (wound culture growing carvajal sensitive pseduomonas). pneumonia initially thought to be likely source on admission given appearance of CXR, however on clarification of CT --> no evidence of PNA. Unable to get stool studies as diarrhea resolved by the time he hit the floor - 30 cc/kg of IVF resuscitation deferred in setting of diastolic CHF - Reviewed CBC - mild leukocytosis of 11.8 with left shift--> normalized - procal elevated to 0.61 on admission - lactate elevated at 2.2 --> has since cleared - Empiric antibiotics including Zosyn (to provide anaerobic coverage) + Dapto (MRSA given risk of hospital acquired infection) - MRSA nares negative --> Dapto stopped 09/22/22. IV zosyn converted to PO cipro today, 09/23/22. - Blood cultures collected prior to antibiotics being administered in ED, no growth to date - Trend cultures + CBC (2) Elevated troponin: Plan: - troponin elevated at 24.8 on admission --> has since downtrended - suspect myocardial demand ischemia in setting of pna, duncan - patient denies chest pain and no dynamic EKG abnormalities appreciated (3) DUNCAN (acute kidney injury): Plan: - DUNCAN on CKD - khurram edouard in setting of volume loss (GI illness) with concurrent loop direutic use - Received 1L of NSS in ED, further fluids held d/t radiographic concern for CHF - creatinine 1.61 today, down from 2.47 - Patient's typical lasix dose fo 60mg BID was held on admission along with is home Lisinopril and Metolazone. Given improvement in renal fxn, lasix 60mg once daily resumed on 09/23/22. Reassess Cr and volume status tomorrow and adjust lasix dose as necessary (4) Chronic respiratory failure: Plan: - Secondary to COPD + obesity hypoventilation syndrome - chronically on 3L O2 at home - Would wean O2 to maintain goal O2 sat of 88-92% - has BiPAP from home for qhs use (5) Rheumatoid arthritis: Plan: - Chronic/stable - hold DMARD - Patient had been on a prednisone taper however given his hypotension on admission stress dose steroids were used - continue prednisone 20mg daily until BP improves --> reduced to 15mg daily on 09/23/22 (6) CHF (congestive heart failure): Plan: - Chronic diastolic CHF - Last echo 08/2022- LVEF 60-65%, mod dilated LA, no wma, mild LVH - Chest CT from admission showing trace pleural effusions - According to documentation, weight documented this AM as 124 kg and was documented as 133 kg on 08/20, but family reports 10-12 lbs weight gain in last week - Follows with HF clinic, last saw Capo Avilez PA-C 08/20/22 at which time his Lasix increased from 40mg daily to 60mg BID and takes Metolazone twice a week - Hold Lasix and metolazone for today in setting of DUNCAN, w--> lasix 60mg once daily resumed as above - Continue Jardiance, Toprol XL (7) Sacral wound: Plan: - pile operator consulted, appreciate assistance - Offload - For now would use acquacel AG and cover with optifoam - Wound culture collected 09/20, growing carvajal sensitive pseudomonas - Zosyn converted to PO cipro on 09/23/22 - location is a known place where he gets psoriatic lesions (and places steroid cream --> steroid cream can thin the skin and make it easier to breakdown) (8) Diabetes: Plan: Chronic/stable - Last a1c 7.3% August 2022 - Will hold Metformin d/t DUNCAN - Resume Glimepiride and Tradjenta - Add Lantus and meal coverage with accuchecks AC and HS - Diabetic diet ordered (9) Diarrhea: Plan: Acute/unstable - Etiology likely viral - Obtain stool biofire + c diff --> nursing unable to collect suggesting diarrhea has resolved - supportive care Plan Lovenox will be utilized for DVT ppx. Above plan of care has been d/w Dr. Aubrie Dubose who will also see and evaluate this patient. Further orders will be implemented as warranted. PT/OT --> recommend acute rehab/SNF upon discharge. Admission and Anticipated Discharge Date Admission Date: September 21, 2022 Subjective No acute events overnight. Patient is feeling markedly improved from admission. Ribs are no where near as sore. GI symptoms have resolved Review of Systems Review of Systems: All systems reviewed & are unremarkable except as noted in HPI & below Physical Exam Constitutional: WD/WN, vitals as above + obese Eyes: + anicteric sclerae ENMT: external ear and nose normal, oropharynx normal Neck: trachea midline, no thyromegaly Respiratory: normal respiratory effort, lungs clear to auscultation Cardiovascular: RRR, no murmur, no edema Gastrointestinal (Abdomen): normal bowel sounds, soft, nontender, no hepatosplenomegaly Musculoskeletal: Head/Neck/Chest: normocephalic and head atraumatic Skin: sacral wound noted covered with opti foam. No obvious e rythema expanding from wound; mild i n appearance well circumscribed pink plaques with over laying silvery sca le Results & Data Results & Data Vital Signs (Past 12 Hours) Vital Signs Temp Pulse Resp BP Pulse Ox O2 Del Method O2 Flow Rate 09/23/22 14:58 36.5 C 62 20 129/76 90 Nasal Cannula 4 09/23/22 08:15 65 09/23/22 07:40 Nasal Cannula 4 PG Care Time/CCT Total # of Minutes Spent Total Time Spent with Patient: Total time spent is greater than 50% in coordination of care (as documented) at patient's floor/unit and/or counseling patient: Coding [place] [address] SUB INP/OBS CARE 2/35MIN Patient Type Established Diagnoses Weakness R53.1 Elevated troponin R79.89 DUNCAN (acute kidney injury) N17.9 Chronic respiratory failure J96.10 Rheumatoid arthritis M06.9 Rheumatoid arthritis location: unspecified site Rheumatoid factor presence: unspecified presence CHF (congestive heart failure) I50.9 Sacral wound S31.000A Diabetes E11.9 Diarrhea R19.7 (5) Rheumatoid arthritis Rheumatoid arthritis location: unspecified site Rheumatoid factor presence: unspecified presence Qualified Code(s): M06.9 - Rheumatoid arthritis, unspecified
[2022-09-24] MEDS: traMADol HCL 50 MG TABLET PO PRN (06:04)
[2022-09-24 07:53] LABS: Albumin Level 3.6 gm/dl (3.4-5.0); Bilirubin,Total 0.4 mg/dl (0.2-1.0); Calcium 8.6 mg/dl (8.6-10.3); Potassium 4.3 mmol/L (3.5-5.1)
[2022-09-24 08:00] LABS: Albumin Globulin Ratio 0.7 (0.9-2); BUN Creatinine Ratio 43.5 (10-20); Creatinine Clr Calc Pharmacy 54.9 ml/min; Est GFR (Non-African American) 48.3 ml/min; Total Protein 8.6 gm/dl (6.0-8.3)
[2022-09-24] MEDS: INSULIN ASPART PER UNIT CHARGE SC SCH ×4 (08:16→21:25)
[2022-09-24] MEDS: LANTUS PER UNIT CHARGE SQ SCH ×2 (08:17→21:24)
[2022-09-24] MEDS: FLUTICASONE PROPIONATE NA SPR 16 GM BTL NAE SCH ×2 (08:17→20:26)
[2022-09-24] MEDS: ENOXAPARIN INJ 40 MG/0.4 ML SYR SQ SCH (08:17)
[2022-09-24] MEDS: FUROSEMIDE 20 MG TAB PO SCH (08:18)
[2022-09-24] MEDS: LIDOCAINE 5% 1 PATCH TD SCH (08:18)
[2022-09-24] MEDS: CIPROFLOXACIN 500 MG TAB PO SCH ×2 (08:18→20:25)
[2022-09-24] MEDS: EMPAGLIFLOZIN 10 MG TAB PO SCH (08:20)
[2022-09-24] MEDS: GABAPENTIN 300 MG CAP PO SCH ×2 (08:20→20:25)
[2022-09-24] MEDS: FEXOFENADINE HCL 180 MG TAB PO SCH (08:20)
[2022-09-24] MEDS: METOPROLOL SUCC 50MG EXT REL TAB PO SCH (08:20)
[2022-09-24] MEDS: ATORVASTATIN 10 MG TAB PO SCH (08:20)
[2022-09-24] MEDS: PANTOprazole 40 MG TAB PO SCH (08:23)
[2022-09-24] MEDS ORDERED: predniSONE 5 MG TAB PO SCH ×2 (09:00→16:12)
[2022-09-24] MEDS: AMOXICILLIN SUSP 400 MG/5 ML PO SCH ×2 (10:23→22:34)
--- NOTE | 2022-09-24 15:52 | Hospitalist Progress Note ---
Date of Service September 24, 2022 Assessment & Plan (1) Pneumonia: Plan: 77 yo with underlying lung disease, immunosuppressed, recent hospitalization in the last 90 days requiring abx - Acute/unstable/high risk - Patient classified as hospital-acquired pna and requires pseudomonal coverage - patient did meet sepsis criteria with tachycardia + fever and source - 30 cc/kg of IVF resuscitation deferred in setting of diastolic CHF -CT chest was not impressive for CHF or pneumonia Was initially covered with Zosyn MRSA negative (2) Elevated troponin: Plan: Troponins flat Cp free and no dynamic EKG abnormalities appreciated Most likely related to DUNCAN (3) DUNCAN (acute kidney injury): Plan: DUNCAN on CKD, Acute/unstable Creatinine peaked at 2.4, trended down. Down to 1.38 today. Responded to IV fluids - reduce home dose of Lasix to 60mg once daily, and hold Lisinopril, and Metolazone for now (4) Chronic respiratory failure: Plan: Secondary to COPD, OHS, chronically on 3L at home Chronic/stable - Currently titrated up to 5L but has a sat of 97% - Would wean O2 to maintain goal O2 sat of 88-92% -has BiPAP from home (5) Rheumatoid arthritis: Plan: Chronic/stable - hold DMARD - Resume Prednisone taper, currently on 15mg, normally takes 5mg at HS all of the time - Taper 15mg, 10mg x 3 days starting 09/25, then resume 5mg daily - PT/OT eval (6) CHF (congestive heart failure): Plan: Chronic diastolic CHF Chronic/stable - Last echo 08/2022- LVEF 60-65%, mod dilated LA, no wma, mild LVH - Follows with HF clinic, last saw Capo Avilez PA-C 08/20/22 - Lasix increased from 40mg daily to 60mg BID and takes Metolazone twice a week -Resume Lasix at 60 mg daily. Continue to hold metolazone. - Continue Jardiance, Toprol XL (7) Sacral wound: Plan: Acute/unstable - POA - material handler consulted, appreciate assistance - Offload - For now would use acquacel AG and cover with optifoam -Wound culture growing Pseudomonas and group C beta strep. Treat with ciprofloxacin and amoxicillin (8) Diabetes: Plan: Chronic/stable - Last a1c 7.3% August 2022 - Will hold Metformin d/t DUNCAN - Resume Glimepiride and Tradjenta - Add Lantus and meal coverage with accuchecks AC and HS - Diabetic diet ordered (9) Diarrhea: Plan: Acute/unstable - Etiology likely viral - Obtain stool biofire + c diff - supportive care Resolved Plan Lovenox for DVT ppx. Disposition: Patient will need placement. bridge manager working on it. Admission and Anticipated Discharge Date Admission Date: September 21, 2022 Subjective Patient feels well. Denies chest pain or shortness of breath. Accompanied by and daughter in the room. Review of Systems Review of Systems: All systems reviewed & are unremarkable except as noted in Subjective Physical Exam Physical Exam: General: Awake, conversant. Obese Heart: S1, S2/regular rate and rhythm, no murmur rubs or gallops Lungs: Clear to auscultation bilaterally. Normal effort Abdomen: Soft/nontender/nondistended. No hepatosplenomegaly Extremities: No clubbing/cyanosis. No edema Behavior: Appropriate, cooperative Results & Data Results & Data Vital Signs (Past 12 Hours) Vital Signs Temp Pulse Pulse Resp BP Pulse Ox O2 Del Method 09/24/22 14:41 36.6 C 58 L 18 135/69 96 Nasal Cannula 09/24/22 11:19 36.4 C L 62 18 176/86 H 97 Nasal Cannula 09/24/22 07:50 Room Air 09/24/22 08:21 66 09/24/22 08:17 36.6 C 57 L 18 124/75 96 Room Air O2 Flow Rate 09/24/22 14:41 4 09/24/22 11:19 4 09/24/22 07:50 4 09/24/22 08:21 09/24/22 08:17 Laboratory Results Abnormal lab results 09/23/22 09/23/22 09/24/22 Range/Units 16:23 20:30 05:57 Sodium 133 L (136-145) mmol/L Chloride 92 L (98-107) mmol/L BUN 60 H (6-23) mg/dl BUN/Creatinine Ratio 43.5 H (10-20) Glucose 126 H (70-99(Fasting)) mg/dl POC Glucose 228 H 197 H (70-99) mg/dl AST 86 H (13-39) U/L ALT 65 H (7-52) U/L Alkaline Phosphatase 29 L (34-104) U/L Total Protein 8.6 H (6.0-8.3) gm/dl Globulin 5.0 H (2.5-4.0) gm/dl Albumin/Globulin Ratio 0.7 L (0.9-2) 09/24/22 09/24/22 Range/Units 07:59 11:52 Sodium (136-145) mmol/L Chloride (98-107) mmol/L BUN (6-23) mg/dl BUN/Creatinine Ratio (10-20) Glucose (70-99(Fasting)) mg/dl POC Glucose 127 H 185 H (70-99) mg/dl AST (13-39) U/L ALT (7-52) U/L Alkaline Phosphatase (34-104) U/L Total Protein (6.0-8.3) gm/dl Globulin (2.5-4.0) gm/dl Albumin/Globulin Ratio (0.9-2) PG Care Time/CCT Total # of Minutes Spent Total Time Spent with Patient: Total time spent is greater than 50% in coordination of care (as documented) at patient's floor/unit and/or counseling patient: Coding Level of Care Code 74761 SUB INP/OBS CARE 235MIN Diagnoses Pneumonia J18.9 Aspiration pneumonia type: unspecified Laterality: unspecified laterality Lung location: unspecified part of lung Elevated troponin R79.89 DUNCAN (acute kidney injury) N17.9 Chronic respiratory failure J96.10 Rheumatoid arthritis M06.9 Rheumatoid arthritis location: unspecified site Rheumatoid factor presence: unspecified presence CHF (congestive heart failure) I50.9 Sacral wound S31.000A Diabetes E11.9 Diarrhea R19.7 (1) Pneumonia Aspiration pneumonia type: unspecified Laterality: unspecified laterality Lung location: unspecified part of lung (5) Rheumatoid arthritis Rheumatoid arthritis location: unspecified site Rheumatoid factor presence: unspecified presence Qualified Code(s): M06.9 - Rheumatoid arthritis, unspecified
[2022-09-25] MEDS: traMADol HCL 50 MG TABLET PO PRN (08:46)
[2022-09-25] MEDS: METOPROLOL SUCC 50MG EXT REL TAB PO SCH (09:08)
[2022-09-25] MEDS: INSULIN ASPART PER UNIT CHARGE SC SCH ×2 (09:18→13:00)
[2022-09-25] MEDS: LANTUS PER UNIT CHARGE SQ SCH (09:20)
[2022-09-25] MEDS: AMOXICILLIN SUSP 400 MG/5 ML PO SCH (09:21)
[2022-09-25] MEDS: ATORVASTATIN 10 MG TAB PO SCH (09:21)
[2022-09-25] MEDS: PANTOprazole 40 MG TAB PO SCH (09:22)
[2022-09-25] MEDS: CIPROFLOXACIN 500 MG TAB PO SCH (09:22)
[2022-09-25] MEDS: FEXOFENADINE HCL 180 MG TAB PO SCH (09:22)
[2022-09-25] MEDS: GABAPENTIN 300 MG CAP PO SCH (09:22)
[2022-09-25] MEDS: LIDOCAINE 5% 1 PATCH TD SCH (09:22)
[2022-09-25] MEDS: EMPAGLIFLOZIN 10 MG TAB PO SCH (09:22)
[2022-09-25] MEDS: FLUTICASONE PROPIONATE NA SPR 16 GM BTL NAE SCH (09:22)
[2022-09-25] MEDS: ENOXAPARIN INJ 40 MG/0.4 ML SYR SQ SCH (09:22)
[2022-09-25] MEDS: FUROSEMIDE 20 MG TAB PO SCH (09:22)
[2022-09-25 14:35] LABS: Adenovirus F 40/41 PCR Not Detected (NotDetected); Astrovirus PCR Not Detected (NotDetected); Campylobacter PCR Not Detected (NotDetected); Cryptosporidium PCR Not Detected (NotDetected); Cyclospora cayetanensis PCR Not Detected (NotDetected); Entamoeba histolytica PCR Not Detected (NotDetected); Enteroaggregative E.coli(EAEC) Not Detected (NotDetected); Enteropathogenic E.coli (EPEC) Not Detected (NotDetected); Enterotoxigenic E.coli (ETEC) Not Detected (NotDetected); Giardia lamblia PCR Not Detected (NotDetected); Norovirus GI/GII PCR Not Detected (NotDetected); Plesiomonas shigelloides PCR Not Detected (NotDetected); Salmonella PCR Not Detected (NotDetected); Sapovirus PCR Not Detected (NotDetected); Shiga-like Toxin E.coli (STEC) Not Detected (NotDetected); Shigella/Enteroinvasive E.coli Not Detected (NotDetected); Vibrio cholerae PCR Not Detected (NotDetected); Vibrio species PCR Not Detected (NotDetected); Yersinia enterocolitica PCR Not Detected (NotDetected)
[2022-09-25 14:39] LABS: Rotavirus A PCR DETECTED (NotDetected)
--- NOTE | 2022-09-25 14:55 | Discharge Summary ---
Date of Service September 25, 2022 Admission HPI Per Admitting Provider Sarwat Campbell is a 77 yo M with a pmhx of oxygen-dependent COPD (chronically on 3L), HTN, obesity, OHS, RA, DMT2, and diastolic CHF who presented to the ER today accompanied by his and daughter c/o increased weakness with fall and n/v/d. Patient's provides the history as when patient is asked what lead to his ER visit today. Patient's notes that he has had progressive weakness with falls, and yesterday developed n/v/d. He has also had little oral intake over the last few days. This is his third ER visit since 09/15. She notes that he chronically wears 3L of nasal cannula due to COPD. He is currently on a Prednisone taper started by the ER, normally takes 5mg every day of Prednisone and is currently is on day 3 of taking 15mg. She also notes that he has a wound at the bottom of his spine above his buttocks that he was seen at dermatology for and had a culture collected on 09/20 due to concern for infection. His work up in the ER today reveals a mildly elevated wbc of 11.80 with a left shift, elevated procalcitonin and lactate and also elevated creatinine of 2.17 above his baseline. He was seen by the HF clinic about one month ago with increase in his Lasix from 40mg daily to 60mg BID. His troponin is also mildly elevated at 24.8. CXR demonstrates cardiomegaly with PVC as well as a left perihilar opacity concerning for pneumonia. He was medicated with a dose of Cefepime, one liter of NSS, and Zofran. Patient has been referred for admission to the hospitalist service for further treatment. Admission Exam Per Admitting Provider GENERAL: 77 yo morbidly obese WM who appears chronically ill but nontoxic. NAD. LUNGS: Nonlabored, diminished in bases no obvious w/r/r CARDIOVASCULAR: Regular rate and rhythm. ABDOMEN: Soft, non-tender and non-distended. BS normoactive x 4 quad. EXTREMITIES: 2+ edema. Non-tender. Peripheral pulses +2/4. SKIN: sacral wound noted covered with optifoam. No obvious erythema expanding from wound. Principal Diagnosis Rotavirus infection Viral gastroenteritis Acute kidney injury on CKD stage III Infected Psoriatic sacral wound Discharge Exam General: Awake, conversant. Obese Heart: S1, S2/regular rate and rhythm, no murmur rubs or gallops Lungs: Clear to auscultation bilaterally. Normal effort Abdomen: Soft/nontender/nondistended. No hepatosplenomegaly Extremities: No clubbing/cyanosis. No edema Behavior: Appropriate, cooperative Discharge Data Allergies Allergy/AdvReac Type Severity Reaction Status Date / Time codeine Allergy Intermediate HIVES (PT Verified 09/20/22 13:47 DOES NOT USE PERCOCET) Consultations 09/21/22 04:53 ED Decision to Admit Stat Ordered Studies 09/21/22 10:27 CT chest diagnostic wo con Stat Hospital Course (1) Pneumonia: 77 yo with underlying lung disease, immunosuppressed, recent hospitalization in the last 90 days requiring abx - Acute/unstable/high risk - Patient classified as hospital-acquired pna and requires pseudomonal coverage - patient did meet sepsis criteria with tachycardia + fever and source - 30 cc/kg of IVF resuscitation deferred in setting of diastolic CHF -CT chest was not impressive for CHF or pneumonia Was initially covered with Zosyn which was later switched to amoxicillin and ciprofloxacin to treat the wound infection MRSA negative (2) Elevated troponin: Troponins flat Cp free and no dynamic EKG abnormalities appreciated Most likely related to DUNCAN (3) DUNCAN (acute kidney injury): DUNCAN on CKD, Acute/unstable Creatinine peaked at 2.4, trended down. Down to 1.38 today. Responded to IV fluids Most likely secondary to dehydration from a combination of diuretic use and diarrhea - reduce home dose of Lasix to 60mg once daily, and hold Lisinopril, and Metolazone for now (4) Chronic respiratory failure: Secondary to COPD, OHS, chronically on 3L at home Chronic/stable - Currently titrated up to 5L but has a sat of 97% - Would wean O2 to maintain goal O2 sat of 88-92% -has BiPAP from home (5) Rheumatoid arthritis: Chronic/stable - hold DMARD - Resume Prednisone taper, currently on 15mg, normally takes 5mg at HS all of the time - Taper 15mg, 10mg x 3 days starting 09/25, then resume 5mg daily -Per PT/OT, patient can go home with home health services (6) CHF (congestive heart failure): Chronic diastolic CHF Chronic/stable - Last echo 08/2022- LVEF 60-65%, mod dilated LA, no wma, mild LVH - Follows with HF clinic, last saw Capo Avilez PA-C 08/20/22 - Lasix increased from 40mg daily to 60mg BID and takes Metolazone twice a week -Resume Lasix at 60 mg daily. Continue to hold metolazone. - Continue Jardiance, Toprol XL (7) Sacral wound: Acute/unstable - POA - warp coiler consulted, appreciate assistance - Offload - For now would use acquacel AG and cover with optifoam -Wound culture growing Pseudomonas and group C beta strep. Treat with ciprofloxacin and amoxicillin (8) Diabetes: Chronic/stable - Last a1c 7.3% August 2022 - Will hold Metformin d/t DUNCAN - Resume Glimepiride and Tradjenta - Add Lantus and meal coverage with accuchecks AC and HS - Diabetic diet ordered (9) Diarrhea: Acute/unstable - Etiology likely viral - Obtain stool biofire + c diff - supportive care Resolved Plan Lovenox for DVT ppx. Disposition: Per PT/OT, patient can go home with home health services Home Health Attestation I certify that this patient is under my care and that I, or a physicians operating room assistant working with me, had a face to-face encounter that meets the home health [id number] encounter requirements with this patient. The encounter with the patient was in whole, or in part, for the following medical condition, which is the primary reason for home health care (list medical condition): I certify that, based on my findings, the following services are medically necessary home health services: My clinical findings support the need for the above services because: Further, I certify that my clinical findings support that this patient is homebound (i.e. absences from home require considerable and taxing effort and are for medical reasons or jainism services or infrequently or of short duration when for other reasons) because: Certification for Home Health Services: Based on the above findings, I certify that this patient is confined to the home and needs intermittent half-way care, physical therapy and/or speech therapy or continues to need occupational therapy. The patient is under my care, and I have initiated the establishment of the plan of care. This patient will be followed by a physician who will periodically review the plan of care. Total Time Total Time Spent Total Time Spent (In Minutes): 35 Discharge Plan Discharge Items Patient Disposition: Home - Home Health Services Reason For Visit: PNA, WEAKNESS, DUNCAN Discharge Diagnosis: Viral gastroenteritis, acute on chronic kidney disease, infected sacral wound Activity: As commented below Activity Comment: Per PT/OT recommendations Non-emergency contact: Primary Care Provider Call non-emergency contact if: you have any medication questions and your symptoms worsen Follow-up/Referrals: Surekha Rea CRNP [Primary Care Provider] - 10/04/22 10:00 am Diet: Heart Healthy Addtl Attending Provider Instructions: Advised to follow-up with PCP in 1 week Pending Studies at Discharge: No Stand-Alone Forms: [facility] Medications and DC Order Prescriptions: New furosemide 20 mg Tablet 60 mg PO QAM Qty: 30 0RF prednisone 5 mg tablet 5 mg PO DAILY Qty: 30 0RF Rx Instructions: take 2 tabs for 3 days then drop to 1 tab every day and continue ciprofloxacin HCl 500 mg Tablet 500 mg PO BID Qty: 14 0RF amoxicillin 875 mg tablet 875 mg PO BID Qty: 14 0RF Continued cholecalciferol (vitamin D3) [Vitamin D3] 25 mcg (1,000 unit) capsule 5,000 unit PO QAM (DME) OneTouch Verio test strips Strip See Rx Instructions .Route Qty: 100 5RF Rx Instructions: check glucose daily dx code : e11.22 (DME) lancets [OneTouch Delica Lancets] 33 gauge misc See Dose Instructions .ROUTE .MEDSUPPLY Qty: 100 5RF Dose Instruction: As directed Rx Instructions: Use to check glucose daily DX CODE: E11.22 metoprolol succinate 200 mg tablet extended release 24 hr 200 mg PO QAM Qty: 90 3RF atorvastatin 10 mg tablet 10 mg PO QAM Qty: 90 3RF glimepiride 2 mg tablet 2 mg PO BID Qty: 180 3RF Jardiance 10 mg tablet 10 mg PO DAILY Qty: 30 5RF (DME) Portable Oxygen Misc See Rx Instructions .Route Qty: 1 11RF Rx Instructions: Oxygen with conserving device. O2 at 2 liters continuous, via nasal cannula with portability metformin 500 mg tablet 500 mg PO BID Qty: 180 3RF Rx Instructions: Administer with food gabapentin 300 mg capsule 300 mg PO QAM Rx Instructions: 300 mg orally Take 300 MG in the AM and 600 MG in the PM; alendronate [Fosamax] 70 mg tablet 70 mg PO .weekly Qty: 4 0RF Rx Instructions: or Fridays; Filled by rheumatology (DME) Oxygen Home Liters Per Minute See Rx Instructions .Route Qty: 1 0RF Rx Instructions: 3L at rest and with Bipap and 4L with ambulation fexofenadine 180 mg tablet 180 mg PO DAILY Qty: 30 6RF fluticasone propionate 50 mcg/actuation spray,suspension 1 spray intranasal BID Qty: 16 2RF Rx Instructions: administer into each nostril twice daily for 1-2 weeks then as needed nystatin 100,000 unit/gram powder 1 applic topical TID Qty: 60 3RF ketoconazole 2 % shampoo 1 applic topical .COMPLEX Qty: 120 1RF Patient Comments: HAS NOT STARTED Rx Instructions: 1 applic topical to the scalp 2-3 times a week. Allow to sit on the scalp for 5 minutes before rinsing. hydrocortisone 2.5 % cream 1 applic topical BID Qty: 28.35 2RF Patient Comments: HAS NOT STARTED Rx Instructions: Apply to the psoriasis lesions on face and ears. triamcinolone acetonide 0.1 % cream 1 applic topical BID Qty: 454 0RF Patient Comments: HAS NOT STARTED YET Rx Instructions: Apply BID to the lesions of psoriasis on the arms, chest, stomach, back, buttocks, legs omeprazole 20 mg capsule,delayed release(DR/EC) 20 mg PO QAM [id number] Tablet 1 tab PO DAILY tramadol 50 mg tablet 50 - 100 mg PO Q4H PRN (Reason: Pain) Tradjenta 5 mg tablet 5 mg PO DAILY gabapentin 300 mg Capsule 600 mg PO PM tofacitinib 11 mg Tablet Extended Release 24 Hr 11 mg PO DAILY Discontinued potassium chloride 10 mEq capsule, extended release 10 meq PO QAM Qty: 90 3RF ciprofloxacin HCl 500 mg tablet 500 mg PO BID 7 Days Qty: 14 0RF amoxicillin 875 mg tablet 875 mg PO BID 7 Days Qty: 14 0RF furosemide [Lasix] 40 mg tablet 60 mg PO BID Qty: 90 3RF lisinopril 30 mg tablet 30 mg PO DAILY Qty: 90 3RF prednisone 5 mg tablet 0 mg PO HS Rx Instructions: currently using a taper then will go back to normal dose of 5mg qhs metolazone 2.5 mg tablet 2.5 mg PO .COMPLEX PRN (Reason: WT GAIN 5 LB IN 3 DAYS.) Rx Instructions: 2.5 mg orally only as needed for weight gain greater than 3-5 pounds PRN; Discharge Orders: Discharge Order (Routine); Ordered 09/25/22 Ordered By: William Lopez Admission Data Admit Date/Time: 09/21/22 10:27 Attending Provider: William Lopez Admit Provider: Aubrie Dubose Primary Care Provider: Surekha Rea Other Providers: Aubrie Dubose ; Chilango Romero ; [place] Care Coding Level of Care Code 43751 INP/OBS DISCH >30 MIN Diagnoses Pneumonia J18.9 Aspiration pneumonia type: unspecified Laterality: unspecified laterality Lung location: unspecified part of lung Elevated troponin R79.89 DUNCAN (acute kidney injury) N17.9 Chronic respiratory failure J96.10 Rheumatoid arthritis M06.9 Rheumatoid arthritis location: unspecified site Rheumatoid factor presence: unspecified presence CHF (congestive heart failure) I50.9 Sacral wound S31.000A Diabetes E11.9 Diarrhea R19.7
[2022-09-26] MEDS ORDERED: predniSONE 5 MG TAB PO SCH (09:00)
== END 2022-09-25 04:05 | disposition home health service (06) | DRG 872 ==
LOC: ED 02:56 → SUATTDRO 10:27 → EDINP 10:27 → 2W 11:39 → 3N 09-24 20:54

== ENCOUNTER 2023-02-05 09:19 | Inpatient (IN) ==
--- NOTE | 2023-02-05 09:29 | Emergency Department Note ---
Impression & Plan Shortness of breath, Leukocytosis, Acute kidney injury superimposed on chronic kidney disease, Elevated procalcitonin, Acute hyperkalemia, Sepsis, Elevated lactic acid level, Hypomagnesemia ED Provider Note HISTORY OF PRESENT ILLNESS: Patient is a 77-year-old male presenting with shortness of breath. Patient reports that he woke up this morning at 6 AM and felt like he could not catch his breath. He has a history of COPD and wears 4 L nasal cannula at baseline. Denies any recent cough or fevers. Denies any chest pain. Denies any recent sick contact exposures or recent travel. He denies any abdominal pain, nausea or vomiting. Denies any DVT or PE history. Denies any history of cardiac stents. He is not on any anticoagulation. ROS: as above PHYSICAL EXAM: Constitutional: Patient appears in no acute distress. HENT: Head: Normocephalic and atraumatic. Eyes: EOMI, PERRL Mouth/Throat: Mucous membranes moist. Neck: Trachea midline. Neck supple. Cardiovascular: Tachycardic with regular rhythm. No murmurs, rubs or gallops. Intact distal pulses. Pulmonary/Chest: No respiratory distress. Breath sounds clear and equal bilaterally. No wheezes or rales. Abdominal: Abdomen soft, no tenderness, rebound or guarding. Musculoskeletal: No edema, tenderness or deformity noted. Skin: Warm and dry. No rash, erythema, pallor or cyanosis Psychiatric: Appropriate mood and affect for situation. Neurological: Alert and keenly responsive. CN II-XII grossly intact, moving all extremities equally and fully. MDM: - Vitals signs showed fever. - History obtained via patient. Patient presents with shortness of breath. Patient states that he woke up this morning at 6 AM very short of breath. He wears 4 L nasal cannula at baseline but felt like he could not catch his breath and called 911. Denies any chest pain. Denies any recent cough or fevers. Denies any abdominal pain, nausea or vomiting. He is not on any anticoagulation. - Chronic conditions affecting care: CKD stage 3; COPD (on 4L NC); HTN; HLD; DM- 2 - Differential diagnoses include, but are not limited to: Congestive heart failure; acute coronary syndrome; COPD/asthma exacerbation; pulmonary edema; pulmonary embolism; pneumonia; pneumothorax; viral syndrome - Order placed for continuous cardiac monitoring. At this time, monitor showed rate of 100 bpm with normal sinus rhythm, per my interpretation. - External medical records reviewed. EMS run sheet reviewed. Patient was h ypoxic on their arrival saturations of 88% on 4 L nasal cannula. He is placed on a nonrebreather with improvement in saturations. - EKG reviewed by myself showed normal sinus rhythm. Rate 100 bpm. No acute ischemic changes. - Laboratory workup interpreted by myself showed leukocytosis (WBC 21.16) with left shift; chronic anemia (Hgb 9.6); hyponatremia (Na 132); hyperkalemia (K 5.9); DUNCAN on CKD (Cr 2.67); elevated lactate (3.1); hypomagnesemia (Mg 1.4); normal troponin; elevated procalcitonin (0.56) - UA negative for infection - VGB showed slight hypercarbia (pCO2 65) - Viral upper respiratory panel negative - CXR negative for obvious pneumonia, per my interpretation - Blood cultures obtained. - Patient given 1g IV tylenol for fever. - Given 1g IV magnesium for electrolyte replacement. Given IV cefepime for antibiotic coverage. - Given 3L NS. - Patient remained on 10L non-rebreather in ER. - MRSA nasal swab obtained. - Discussion was had with high school social studies teacher about patient's case and need for admission - Hospitalist consulted for admission [facility] I provided 32 minutes of critical care time to this patient's care outside of billable procedures. ASSESSMENT AND PLAN: Diagnosis: shortness of breath; leukocytosis; sepsis; hyperkalemia; DUNCAN on CKD; elevated lactate; hypomagnesemia; elevated procalcitonin; fever Plan: admit Past Med/Surg History Medical History Acute hypoxemic respiratory failure Acute respiratory failure with hypoxia Acute sinusitis Chronic anemia CKD (chronic kidney disease), stage III COPD (chronic obstructive pulmonary disease) Diabetes Elevated troponin GERD (gastroesophageal reflux disease) Hyperlipidemia Hypertension Lumbosacral stenosis with neurogenic claudication MGUS (monoclonal gammopathy of unknown significance) Morbid obesity On home oxygen therapy Peripheral neuropathy Psoriatic arthritis Rheumatoid arthritis SCC (squamous cell carcinoma) Sleep apnea Stage 2 chronic kidney disease Surgical History H/O arthroscopy of shoulder H/O excision of mass (09/14/21) History of bilateral knee replacement History of colonoscopy History of surgical removal of skin lesion Hx of appendectomy Hx of cholecystectomy Hx of hernia repair S/P right knee surgery Family History Father Myocardial infarction Heart disease Mother Cancer Non-Hodgkins lymphoma Sister Ovarian cancer Brother Lung cancer Grandfather Diabetes Other Family history non-contributory Denies family history of Prostate cancer Breast cancer Colorectal cancer Social History Smoking Status: Never smoker Second Hand Exposure: No; Do You Dip or Chew Tobacco: No; Hx Alcohol Use: No Hx Substance Use: No Preferred Language: Nigerian Communication Ability: Effective Rental Representative Required: No Beliefs That Will Affect Care: None marital status: Current Living Situation: Spouse current occupational status: retired How many Children do You have: 3 Feels Safe at Home: Yes Childhood Exposure to Second-Hand Smoke: No Diet: regular caffeine: Yes during the past year weight has: remained stable Dental Care, Regularly: Yes Physical Activity Frequency: Daily Seatbelt Use: never Sunscreen Use: No Assistive Devices: Oxygen - Continuous and Walker Allergies Allergies Allergy/AdvReac Type Severity Reaction Status Date / Time codeine Allergy Intermediate HIVES (PT Verified 02/05/23 10:46 DOES NOT USE PERCOCET) Home Meds Home Medications Medication Instructions Recorded Confirmed cholecalciferol (vitamin D3) 25 5,000 unit PO QAM 11/04/20 02/05/23 mcg (1,000 unit) capsule (Vitamin D3) omeprazole 20 mg capsule,delayed 20 mg PO QAM 09/11/21 02/05/23 release [id number] tablet 1 tab PO DAILY 09/14/21 02/05/23 gabapentin 300 mg capsule 300 mg PO QAM 07/19/22 02/05/23 gabapentin 300 mg capsule 600 mg PO PM 09/21/22 02/05/23 amlodipine 5 mg tablet 5 mg PO DAILY 12/14/22 02/05/23 Previous Rx's Medication Instructions Recorded lancets 33 gauge (OneTouch Delica #100 ea 09/01/21 Lancets) metoprolol succinate 200 mg 200 mg PO QAM #90 tabs 04/16/22 tablet,extended release 24 hr atorvastatin 10 mg tablet 10 mg PO QAM #90 tabs 05/01/22 glimepiride 2 mg tablet 2 mg PO BID #180 tabs 07/13/22 Oxygen Home #1 ea 07/19/22 alendronate 70 mg tablet (Fosamax) 70 mg PO .weekly #4 tabs 07/19/22 empagliflozin 10 mg tablet 10 mg PO DAILY #30 tabs 07/30/22 (Jardiance) fexofenadine 180 mg tablet 180 mg PO DAILY #30 tabs 08/24/22 fluticasone propionate 50 1 spray intranasal BID #16 grams 08/24/22 mcg/actuation nasal spray,suspension nystatin 100,000 unit/gram topical 1 applic topical TID #60 grams 08/24/22 powder Portable Oxygen #1 ea 09/04/22 metformin 500 mg tablet 500 mg PO BID #180 tabs 09/06/22 hydrocortisone 2.5 % topical cream 1 applic topical BID #28.35 grams 09/20/22 ketoconazole 2 % shampoo 1 applic topical .COMPLEX #120 mL 09/20/22 triamcinolone acetonide 0.1 % 1 applic topical BID #454 grams 09/20/22 topical cream prednisone 5 mg tablet 5 mg PO DAILY #30 tabs 09/25/22 magnesium oxide 400 mg PO TID #270 tabs 10/05/22 metolazone 2.5 mg tablet 2.5 mg PO .COMPLEX PRN WT GAIN 5 10/05/22 LB IN 3 DAYS. #30 tabs blood sugar diagnostic (OneTouch #100 ea 10/09/22 Verio test strips) betamethasone dipropionate 0.05 % 1 applic topical DAILY #60 mL 10/24/22 lotion linagliptin 5 mg tablet (Tradjenta) 5 mg PO DAILY #30 tabs 11/06/22 ustekinumab 90 mg/mL subcutaneous 90 mg subcut .COMPLEX #2 mL 11/22/22 syringe (Stelara) clobetasol 0.05 % topical cream 1 applic topical BID #45 grams 11/28/22 lisinopril 30 mg tablet 30 mg PO DAILY #90 tabs 12/31/22 bumetanide 2 mg tablet 2 mg PO BID #60 tabs 01/07/23 albuterol sulfate 90 mcg/actuation 2 puff inhalation QID PRN 01/17/23 aerosol inhaler shortness of breath or wheezing #8.5 grams spacer device for inhaler #1 ea 01/17/23 Results & Data (ED) Vital Signs Vital Signs - 24 hr 02/05/23 09:27 02/05/23 09:27 02/05/23 09:27 Temperature 38.4 C H Temperature Source Oral Pulse Rate 120 H Pulse Rate from SpO2 Sensor Respiratory Rate 28 H Respiratory Effort / Characteristics Short of Breath SOB on Exertion Blood Pressure 111/83 Blood Pressure Mean 92 Pulse Oximetry 95 Oxygen Delivery Method Non-rebreather Non-rebreather Oxygen Flow Rate 10 Sepsis New/Unexplained Change in Mental Status No Sepsis Action Taken by Nursing Physician Notified Oxygen Flow Rate - Titration 10 Pulse Oximetry Post Tiitration 95 02/05/23 09:34 02/05/23 09:28 02/05/23 12:00 Temperature 37.8 C H Temperature Source Oral Pulse Rate 107 H Pulse Rate from SpO2 Sensor Respiratory Rate Respiratory Effort / Characteristics Blood Pressure Blood Pressure Mean Pulse Oximetry Oxygen Delivery Method Non-rebreather Oxygen Flow Rate Sepsis New/Unexplained Change in Mental Status Sepsis Action Taken by Nursing Oxygen Flow Rate - Titration Pulse Oximetry Post Tiitration 02/05/23 09:30 02/05/23 10:00 02/05/23 10:23 Temperature Temperature Source Pulse Rate Pulse Rate from SpO2 Sensor 103 H 99 H Respiratory Rate 29 H 19 Respiratory Effort / Characteristics Blood Pressure 106/52 L Blood Pressure Mean 62 Pulse Oximetry 92 98 Oxygen Delivery Method Oxygen Flow Rate Sepsis New/Unexplained Change in Mental Status Sepsis Action Taken by Nursing Oxygen Flow Rate - Titration Pulse Oximetry Post Tiitration 02/05/23 10:23 02/05/23 10:23 02/05/23 10:30 Temperature Temperature Source Pulse Rate 89 Pulse Rate from SpO2 Sensor 90 92 H Respiratory Rate 38 H Respiratory Effort / Characteristics Blood Pressure 106/52 L Blood Pressure Mean 62 Pulse Oximetry 93 98 Oxygen Delivery Method Oxygen Flow Rate Sepsis New/Unexplained Change in Mental Status Sepsis Action Taken by Nursing Oxygen Flow Rate - Titration Pulse Oximetry Post Tiitration 02/05/23 10:31 02/05/23 10:31 02/05/23 11:00 Temperature Temperature Source Pulse Rate 91 H Pulse Rate from SpO2 Sensor 94 H 93 H Respiratory Rate 23 Respiratory Effort / Characteristics Blood Pressure 122/55 L Blood Pressure Mean 84 Pulse Oximetry 96 94 Oxygen Delivery Method Oxygen Flow Rate Sepsis New/Unexplained Change in Mental Status Sepsis Action Taken by Nursing Oxygen Flow Rate - Titration Pulse Oximetry Post Tiitration 02/05/23 11:01 02/05/23 11:01 02/05/23 11:30 Temperature Temperature Source Pulse Rate Pulse Rate from SpO2 Sensor 81 Respiratory Rate 19 24 Respiratory Effort / Characteristics Blood Pressure 85/54 L Blood Pressure Mean 66 Pulse Oximetry 95 Oxygen Delivery Method Oxygen Flow Rate Sepsis New/Unexplained Change in Mental Status Sepsis Action Taken by Nursing Oxygen Flow Rate - Titration Pulse Oximetry Post Tiitration 02/05/23 11:31 02/05/23 11:31 Temperature Temperature Source Pulse Rate Pulse Rate from SpO2 Sensor 81 Respiratory Rate 21 Respiratory Effort / Characteristics Blood Pressure 106/43 L Blood Pressure Mean 48 Pulse Oximetry 91 Oxygen Delivery Method Oxymask Oxygen Flow Rate 10 Sepsis New/Unexplained Change in Mental Status Sepsis Action Taken by Nursing Oxygen Flow Rate - Titration Pulse Oximetry Post Tiitration Laboratory Data 02/05/23 10:51 02/05/23 10:51 Lab Results 02/05/23 02/05/23 02/05/23 Range/Units 09:30 09:30 10:51 WBC 21.16 H (4.8-10.8) K/ul RBC 3.37 L (4.70-6.10) M/uL Hgb 9.6 L (14.0-18.0) g/dl Hct 30.5 L (42.0-52.0) % MCV 90.5 (80.0-100.0) fL MCH 28.5 (25.0-34.0) pg MCHC 31.5 L (32.0-36.0) g/dL RDW Std Deviation 55.1 H (36.4-46.3) fL RDW Coeff of Tony 16.5 H (11.5-14.5) % Plt Count 248 (130-400) K/uL MPV 10.0 (9.4-12.4) fL Immature Gran % (Auto) 0.3 % Neut % (Auto) 91.5 % Lymph % (Auto) 4.4 % Callaway % (Auto) 2.6 % Eos % (Auto) 0.9 % Baso % (Auto) 0.3 % Neut # (Auto) 19.35 H (1.40-6.50) K/uL Lymph # (Auto) 0.93 L (1.20-3.40) K/uL Callaway # (Auto) 0.56 (0.11-0.59) K/uL Eos # (Auto) 0.19 (0.00-0.50) K/uL Baso # (Auto) 0.06 (0.00-0.20) K/uL Immature Gran # (Auto) 0.07 (0.01-0.20) K/uL Polychromasia 1+ PT (9.0-12.0) Seconds INR (0.9-1.1) VBG pH (7.36-7.41) VBG pCO2 (38-50) mmHg VBG pO2 mmHg VBG HCO3 mmol/L VBG O2 Saturation % VBG Base Excess mEq/L Sodium (136-145) mmol/L Potassium (3.5-5.1) mmol/L Chloride (98-107) mmol/L Carbon Dioxide (21-32) mmol/L Anion Gap (3-11) BUN (6-23) mg/dl Creatinine (0.6-1.4) mg/dl Est Cr Clr Drug Dosing ml/min Est GFR ( Amer) ml/min Est GFR (Non-Af Amer) ml/min BUN/Creatinine Ratio (10-20) Glucose (70-99(Fasting)) mg/dl Lactate (0.4-2.0) mmol/L Calcium (8.6-10.3) mg/dl Magnesium (1.7-2.4) mg/dl Total Bilirubin (0.2-1.0) mg/dl Direct Bilirubin (0-0.2) mg/dl AST (13-39) U/L ALT (7-52) U/L Alkaline Phosphatase (34-104) U/L Troponin I High Sens (0-20) pg/ml B-Natriuretic Peptide (0-100) pg/ml Total Protein (6.0-8.3) gm/dl Albumin (3.4-5.0) gm/dl Procalcitonin (0-0.5) ng/ml Urine Color Yellow Urine Appearance Clear (Clear) Urine pH 8.0 H (4.5-7.5) Ur Specific Redig 1.012 (1.000-1.030) Urine Protein Negative (Negative) Urine Glucose (UA) 2+ H (Negative) Urine Ketones Negative (Negative) Urine Blood Negative (Negative) Urine Nitrite Negative (Negative) Urine Bilirubin Negative (Negative) Urine Urobilinogen Negative (Negative) Ur Leukocyte Esterase Trace H (Negative) Urine WBC (Auto) 1-5 (0-5) /hpf Urine RBC (Auto) 0-4 (0-4) /hpf U Hyaline Cast (Auto) 1-5 (0-5) /lpf U Epithel Cells (Auto) 0-5 (0-5) /lpf Urine Bacteria (Auto) Negative (Negative) Adenovirus (PCR) Not Detected (NotDetected) B. pertussis DNA (PCR) Not Detected (NotDetected) B.parapertussis DNA PCR Not Detected (NotDetected) C. pneumoniae DNA (PCR) Not Detected (NotDetected) Coronavirus OC43 (PCR) Not Detected (NotDetected) Coronavirus HKU1 (PCR) Not Detected (NotDetected) Coronavirus 229E (PCR) Not Detected (NotDetected) SARS-CoV-2 (PCR) Not Detected (NotDetected) Coronavirus NL63 (PCR) Not Detected (NotDetected) Human Metapneumovir PCR Not Detected (NotDetected) Influenza Type A (PCR) Not Detected (NotDetected) Influenza Type B (PCR) Not Detected (NotDetected) M. pneumoniae (PCR) Not Detected (NotDetected) Parainfluenza 1 (PCR) Not Detected (NotDetected) Parainfluenza 2 (PCR) Not Detected (NotDetected) Parainfluenza 3 (PCR) Not Detected (NotDetected) Parainfluenza 4 (PCR) Not Detected (NotDetected) RSV (PCR) Not Detected (NotDetected) Entero/Rhino (PCR) Not Detected (NotDetected) 02/05/23 02/05/23 02/05/23 Range/Units 10:51 10:51 10:51 WBC (4.8-10.8) K/ul RBC (4.70-6.10) M/uL Hgb (14.0-18.0) g/dl Hct (42.0-52.0) % MCV (80.0-100.0) fL MCH (25.0-34.0) pg MCHC (32.0-36.0) g/dL RDW Std Deviation (36.4-46.3) fL RDW Coeff of Tony (11.5-14.5) % Plt Count (130-400) K/uL MPV (9.4-12.4) fL Immature Gran % (Auto) % Neut % (Auto) % Lymph % (Auto) % Callaway % (Auto) % Eos % (Auto) % Baso % (Auto) % Neut # (Auto) (1.40-6.50) K/uL Lymph # (Auto) (1.20-3.40) K/uL Callaway # (Auto) (0.11-0.59) K/uL Eos # (Auto) (0.00-0.50) K/uL Baso # (Auto) (0.00-0.20) K/uL Immature Gran # (Auto) (0.01-0.20) K/uL Polychromasia PT 11.1 (9.0-12.0) Seconds INR 1.0 (0.9-1.1) VBG pH (7.36-7.41) VBG pCO2 (38-50) mmHg VBG pO2 mmHg VBG HCO3 mmol/L VBG O2 Saturation % VBG Base Excess mEq/L Sodium 132 L (136-145) mmol/L Potassium 5.9 H (3.5-5.1) mmol/L Chloride 86 L (98-107) mmol/L Carbon Dioxide 37 H (21-32) mmol/L Anion Gap 9 (3-11) BUN 52 H (6-23) mg/dl Creatinine 2.67 H (0.6-1.4) mg/dl Est Cr Clr Drug Dosing 29.3 ml/min Est GFR ( Amer) 25.2 ml/min Est GFR (Non-Af Amer) 21.7 ml/min BUN/Creatinine Ratio 19.5 (10-20) Glucose 179 H (70-99(Fasting)) mg/dl Lactate 3.1 H* (0.4-2.0) mmol/L Calcium 9.3 (8.6-10.3) mg/dl Magnesium 1.4 L (1.7-2.4) mg/dl Total Bilirubin 0.7 (0.2-1.0) mg/dl Direct Bilirubin 0.2 (0-0.2) mg/dl AST 61 H (13-39) U/L ALT 45 (7-52) U/L Alkaline Phosphatase 38 (34-104) U/L Troponin I High Sens 18.5 (0-20) pg/ml B-Natriuretic Peptide (0-100) pg/ml Total Protein 7.5 (6.0-8.3) gm/dl Albumin 3.7 (3.4-5.0) gm/dl Procalcitonin (0-0.5) ng/ml Urine Color Urine Appearance (Clear) Urine pH (4.5-7.5) Ur Specific Redig (1.000-1.030) Urine Protein (Negative) Urine Glucose (UA) (Negative) Urine Ketones (Negative) Urine Blood (Negative) Urine Nitrite (Negative) Urine Bilirubin (Negative) Urine Urobilinogen (Negative) Ur Leukocyte Esterase (Negative) Urine WBC (Auto) (0-5) /hpf Urine RBC (Auto) (0-4) /hpf U Hyaline Cast (Auto) (0-5) /lpf U Epithel Cells (Auto) (0-5) /lpf Urine Bacteria (Auto) (Negative) Adenovirus (PCR) (NotDetected) B. pertussis DNA (PCR) (NotDetected) B.parapertussis DNA PCR (NotDetected) C. pneumoniae DNA (PCR) (NotDetected) Coronavirus OC43 (PCR) (NotDetected) Coronavirus HKU1 (PCR) (NotDetected) Coronavirus 229E (PCR) (NotDetected) SARS-CoV-2 (PCR) (NotDetected) Coronavirus NL63 (PCR) (NotDetected) Human Metapneumovir PCR (NotDetected) Influenza Type A (PCR) (NotDetected) Influenza Type B (PCR) (NotDetected) M. pneumoniae (PCR) (NotDetected) Parainfluenza 1 (PCR) (NotDetected) Parainfluenza 2 (PCR) (NotDetected) Parainfluenza 3 (PCR) (NotDetected) Parainfluenza 4 (PCR) (NotDetected) RSV (PCR) (NotDetected) Entero/Rhino (PCR) (NotDetected) 02/05/23 02/05/23 02/05/23 Range/Units 10:51 10:51 10:51 WBC (4.8-10.8) K/ul RBC (4.70-6.10) M/uL Hgb (14.0-18.0) g/dl Hct (42.0-52.0) % MCV (80.0-100.0) fL MCH (25.0-34.0) pg MCHC (32.0-36.0) g/dL RDW Std Deviation (36.4-46.3) fL RDW Coeff of Tony (11.5-14.5) % Plt Count (130-400) K/uL MPV (9.4-12.4) fL Immature Gran % (Auto) % Neut % (Auto) % Lymph % (Auto) % Callaway % (Auto) % Eos % (Auto) % Baso % (Auto) % Neut # (Auto) (1.40-6.50) K/uL Lymph # (Auto) (1.20-3.40) K/uL Callaway # (Auto) (0.11-0.59) K/uL Eos # (Auto) (0.00-0.50) K/uL Baso # (Auto) (0.00-0.20) K/uL Immature Gran # (Auto) (0.01-0.20) K/uL Polychromasia PT (9.0-12.0) Seconds INR (0.9-1.1) VBG pH 7.41 (7.36-7.41) VBG pCO2 65 H (38-50) mmHg VBG pO2 44 mmHg VBG HCO3 41 mmol/L VBG O2 Saturation 71.3 % VBG Base Excess 13.5 mEq/L Sodium (136-145) mmol/L Potassium (3.5-5.1) mmol/L Chloride (98-107) mmol/L Carbon Dioxide (21-32) mmol/L Anion Gap (3-11) BUN (6-23) mg/dl Creatinine (0.6-1.4) mg/dl Est Cr Clr Drug Dosing ml/min Est GFR ( Amer) ml/min Est GFR (Non-Af Amer) ml/min BUN/Creatinine Ratio (10-20) Glucose (70-99(Fasting)) mg/dl Lactate (0.4-2.0) mmol/L Calcium (8.6-10.3) mg/dl Magnesium (1.7-2.4) mg/dl Total Bilirubin (0.2-1.0) mg/dl Direct Bilirubin (0-0.2) mg/dl AST (13-39) U/L ALT (7-52) U/L Alkaline Phosphatase (34-104) U/L Troponin I High Sens (0-20) pg/ml B-Natriuretic Peptide 72 (0-100) pg/ml Total Protein (6.0-8.3) gm/dl Albumin (3.4-5.0) gm/dl Procalcitonin 0.56 H (0-0.5) ng/ml Urine Color Urine Appearance (Clear) Urine pH (4.5-7.5) Ur Specific Redig (1.000-1.030) Urine Protein (Negative) Urine Glucose (UA) (Negative) Urine Ketones (Negative) Urine Blood (Negative) Urine Nitrite (Negative) Urine Bilirubin (Negative) Urine Urobilinogen (Negative) Ur Leukocyte Esterase (Negative) Urine WBC (Auto) (0-5) /hpf Urine RBC (Auto) (0-4) /hpf U Hyaline Cast (Auto) (0-5) /lpf U Epithel Cells (Auto) (0-5) /lpf Urine Bacteria (Auto) (Negative) Adenovirus (PCR) (NotDetected) B. pertussis DNA (PCR) (NotDetected) B.parapertussis DNA PCR (NotDetected) C. pneumoniae DNA (PCR) (NotDetected) Coronavirus OC43 (PCR) (NotDetected) Coronavirus HKU1 (PCR) (NotDetected) Coronavirus 229E (PCR) (NotDetected) SARS-CoV-2 (PCR) (NotDetected) Coronavirus NL63 (PCR) (NotDetected) Human Metapneumovir PCR (NotDetected) Influenza Type A (PCR) (NotDetected) Influenza Type B (PCR) (NotDetected) M. pneumoniae (PCR) (NotDetected) Parainfluenza 1 (PCR) (NotDetected) Parainfluenza 2 (PCR) (NotDetected) Parainfluenza 3 (PCR) (NotDetected) Parainfluenza 4 (PCR) (NotDetected) RSV (PCR) (NotDetected) Entero/Rhino (PCR) (NotDetected) Administered Medications Sodium Chloride (Nss 1000ml) 1,000 mls @ 999 mls/hr IV .Q1H1M ONE Stop: 02/05/23 12:39 Last Admin: 02/05/23 11:53 Dose: 999 mls/hr Documented By: LEIGHANN Discontinued Medications Acetaminophen (Ofirmev) 1,000 mg in 100 mls @ 400 mls/hr IV NOW STA Stop: 02/05/23 09:44 Last Infusion: 02/05/23 09:50 Dose: 0 mls/hr Documented By: Admin: 02/05/23 09:35 Dose: 400 mls/hr Documented By: LEIGHANN Cefepime HCl (Maxipime) 2,000 mg in 20 mls @ 5 mls/min IV NOW STA; Protocol Stop: 02/05/23 11:42 Last Admin: 02/05/23 11:53 Dose: 5 mls/min Documented By: LEIGHANN Imaging Data Radiologist's Impression: Chest X-Ray 02/05/23 09:28 XR chest 1V portable CLINICAL HISTORY: Dyspnea. COMPARISON STUDY: Chest CT September 21, 2022. Chest radiograph January 18, 2023. FINDINGS: There is no pneumothorax or pleural effusion. Cardiomegaly is unchanged. No evidence for pulmonary edema. There is no consolidation to suggest pneumonia. Appearance of the chest is unchanged. IMPRESSION: No acute cardiopulmonary findings. No change in appearance of the chest. ACT 112: Negative or not required by law. Electronically signed by: Live Manrique M.D. 02/05/2023 10:36 AM Discharge Plan Visit Data Chief Complaint: Shortness of Breath/Dyspnea ED Provider: Afua Harvey Discharge Problem: Shortness of breath, Leukocytosis, Acute kidney injury superimposed on chronic kidney disease, Elevated procalcitonin, Acute hyperkalemia, Sepsis, Elevated lactic acid level, Hypomagnesemia Forms Stand Alone Forms: My [facility] [employer] Prescriptions Prescriptions: No Action cholecalciferol (vitamin D3) [Vitamin D3] 25 mcg (1,000 unit) capsule 5,000 unit PO QAM (DME) lancets [OneTouch Delica Lancets] 33 gauge misc See Dose Instructions .ROUTE .MEDSUPPLY Qty: 100 5RF Dose Instruction: As directed Rx Instructions: Use to check glucose daily DX CODE: E11.22 metoprolol succinate 200 mg tablet extended release 24 hr 200 mg PO QAM Qty: 90 3RF atorvastatin 10 mg tablet 10 mg PO QAM Qty: 90 3RF glimepiride 2 mg tablet 2 mg PO BID Qty: 180 3RF Jardiance 10 mg tablet 10 mg PO DAILY Qty: 30 5RF (DME) Portable Oxygen Misc See Rx Instructions .Route Qty: 1 11RF Rx Instructions: Oxygen with conserving device. O2 at 2 liters continuous, via nasal cannula with portability metformin 500 mg tablet 500 mg PO BID Qty: 180 3RF Rx Instructions: Administer with food (DME) OneTouch Verio test strips Strip See Rx Instructions .Route Qty: 100 5RF Rx Instructions: check glucose daily dx code : e11.22 Tradjenta 5 mg tablet 5 mg PO DAILY Qty: 30 7RF lisinopril 30 mg tablet 30 mg PO DAILY Qty: 90 3RF gabapentin 300 mg capsule 300 mg PO QAM Rx Instructions: 300 mg orally Take 300 MG in the AM and 600 MG in the PM; alendronate [Fosamax] 70 mg tablet 70 mg PO .weekly Qty: 4 0RF Rx Instructions: or Fridays; Filled by rheumatology (DME) Oxygen Home Liters Per Minute See Rx Instructions .Route Qty: 1 0RF Rx Instructions: 3L at rest and with Bipap and 4L with ambulation Stelara 90 mg/mL syringe 90 mg subcut .COMPLEX Qty: 2 0RF Rx Instructions: Inject once and repeat in 4 weeks, then continue every 12 weeks; Start Date 01/08/23 (pt received 1st injection) bumetanide 2 mg tablet 2 mg PO BID Qty: 60 5RF clobetasol 0.05 % cream 1 applic topical BID Qty: 45 1RF Rx Instructions: Apply to the stubborn plaques on arms, back, lower legs. fexofenadine 180 mg tablet 180 mg PO DAILY Qty: 30 6RF fluticasone propionate 50 mcg/actuation spray,suspension 1 spray intranasal BID Qty: 16 2RF Rx Instructions: administer into each nostril twice daily for 1-2 weeks then as needed nystatin 100,000 unit/gram powder 1 applic topical TID Qty: 60 3RF betamethasone dipropionate 0.05 % lotion 1 applic topical DAILY Qty: 60 1RF Rx Instructions: Apply to the scalp as needed for itching or redness. ketoconazole 2 % shampoo 1 applic topical .COMPLEX Qty: 120 1RF Patient Comments: HAS NOT STARTED Rx Instructions: 1 applic topical to the scalp 2-3 times a week. Allow to sit on the scalp for 5 minutes before rinsing. hydrocortisone 2.5 % cream 1 applic topical BID Qty: 28.35 2RF Patient Comments: HAS NOT STARTED Rx Instructions: Apply to the psoriasis lesions on face and ears. triamcinolone acetonide 0.1 % cream 1 applic topical BID Qty: 454 0RF Patient Comments: HAS NOT STARTED YET Rx Instructions: Apply BID to the lesions of psoriasis on the arms, chest, stomach, back, buttocks, legs amlodipine 5 mg tablet 5 mg PO DAILY magnesium oxide 400 mg magnesium tablet 400 mg PO TID Qty: 270 1RF metolazone 2.5 mg tablet 2.5 mg PO .COMPLEX PRN (Reason: WT GAIN 5 LB IN 3 DAYS.) Qty: 30 0RF Rx Instructions: 2.5 mg orally only as needed for weight gain greater than 3-5 pounds PRN; albuterol sulfate 90 mcg/actuation HFA aerosol inhaler 2 puff inhalation QID PRN (Reason: shortness of breath or wheezing) Qty: 8.5 1RF (DME) spacer device for inhaler See Rx Instructions .Route .MEDSUPPLY Qty: 1 0RF Rx Instructions: use with inhaler omeprazole 20 mg capsule,delayed release(DR/EC) 20 mg PO QAM [id number] Tablet 1 tab PO DAILY gabapentin 300 mg Capsule 600 mg PO PM prednisone 5 mg tablet 5 mg PO DAILY Qty: 30 0RF Rx Instructions: take 2 tabs for 3 days then drop to 1 tab every day and continue Referrals Referrals: Surekha Rea CRNP [Primary Care Provider] -
[2023-02-05] MEDS ORDERED: ACETAMINOPHEN 1,000 MG/100 ML VIAL IV STA (09:30)
[2023-02-05 09:50] LABS: Appearance Urine Clear (Clear); Bacteria Urine Automated Negative (Negative); Bilirubin Urine Negative (Negative); Blood Urine Negative (Negative); Color Urine Yellow; Epithelial Cell Urine Auto 0-5 /lpf (0-5); Glucose Urine UA 2+ (Negative); Ketones Urine Negative (Negative); Leukocyte Esterase Urine Trace (Negative); Nitrite Urine Negative (Negative); Protein Urine Negative (Negative); RBC Urine Automated 0-4 /hpf (0-4); Specific Gravity Urine 1.012 (1.000-1.030); Urobilinogen Urine Negative (Negative)
[2023-02-05 10:36] LABS: Adenovirus PCR Not Detected (NotDetected); Bordetella parapertussis PCR Not Detected (NotDetected); Bordetella pertussis PCR Not Detected (NotDetected); Chlamydia pneumoniae PCR Not Detected (NotDetected); Coronavirus 229E PCR Not Detected (NotDetected); Coronavirus CoV-2 (COVID19)PCR Not Detected (NotDetected); Coronavirus HKU1 PCR Not Detected (NotDetected); Coronavirus NL63 PCR Not Detected (NotDetected); Coronavirus OC43PCR Not Detected (NotDetected); Human Metapneumovirus PCR Not Detected (NotDetected); Influenza A PCR Not Detected (NotDetected); Influenza B PCR Not Detected (NotDetected); Mycoplasma pneumoniae PCR Not Detected (NotDetected); Parainfluenza Virus 1 PCR Not Detected (NotDetected); Parainfluenza Virus 2 PCR Not Detected (NotDetected); Parainfluenza Virus 3 PCR Not Detected (NotDetected); Parainfluenza Virus 4 PCR Not Detected (NotDetected); Respiratory Syncytial VirusPCR Not Detected (NotDetected); Rhinovirus/Enterovirus PCR Not Detected (NotDetected)
--- NOTE | 2023-02-05 10:37 | XRay Report ---
XR chest 1V portable CLINICAL HISTORY: Dyspnea. COMPARISON STUDY: Chest CT September 21, 2022. Chest radiograph January 18, 2023. FINDINGS: There is no pneumothorax or pleural effusion. Cardiomegaly is unchanged. No evidence for pu lmonary edema. There is no consolidation to suggest pneumonia. Appearance of the chest is unchanged. IMPRESSION: No acute cardiopulmonary findings. No change in appearance of the chest. ACT 112: Negative or not required by law. Electronically signed by: Live Manrique M.D. 02/05/2023 10:36 AM
[2023-02-05 11:08] LABS: Hematocrit (blood only) 30.5 % (42.0-52.0); Hemoglobin 9.6 g/dl (14.0-18.0); Mean Corpuscular Hemoglobin 28.5 pg (25.0-34.0); Mean Corpuscular Hgb Conc 31.5 g/dL (32.0-36.0); Mean Corpuscular Volume 90.5 fL (80.0-100.0); Platelet Count 248 K/uL (130-400); RDW Coefficient of Variation 16.5 % (11.5-14.5); RDW Standard Deviation 55.1 fL (36.4-46.3); Red Blood Count 3.37 M/uL (4.70-6.10); White Blood Count 21.16 K/ul (4.8-10.8)
[2023-02-05 11:17] LABS: Prothrombin Time 11.1 Seconds (9.0-12.0)
[2023-02-05 11:24] LABS: Base Excess VBG 13.5 mEq/L; HCO3 VBG 41 mmol/L; Oxygen Saturation VBG 71.3 %; PCO2 VBG 65 mmHg (38-50); PO2 VBG 44 mmHg; pH VBG 7.41 (7.36-7.41)
[2023-02-05 11:38] LABS: Troponin I High Sensitivity 18.5 pg/ml (0-20)
[2023-02-05] MEDS ORDERED: CEFEPIME 2,000 MG/20 ML VIAL IV STA (11:39)
[2023-02-05] MEDS ORDERED: SODIUM CHLORIDE 0.9% 1,000 ML IV ONE ×2 (11:39→12:41)
[2023-02-05 11:43] LABS: Basophils # (auto) 0.06 K/uL (0.00-0.20); Basophils % (auto) 0.3 %; Eosinophils # (auto) 0.19 K/uL (0.00-0.50); Eosinophils % (auto) 0.9 %; Immature Granulocytes # (auto) 0.07 K/uL (0.01-0.20); Immature Granulocytes % (auto) 0.3 %; Lymphocytes # (auto) 0.93 K/uL (1.20-3.40); Lymphocytes % (auto) 4.4 %; Monocytes # (auto) 0.56 K/uL (0.11-0.59); Monocytes % (auto) 2.6 %; Neutrophils # (auto) 19.35 K/uL (1.40-6.50); Neutrophils % (auto) 91.5 %; Polychromasia 1+
[2023-02-05 11:46] LABS: Albumin Level 3.7 gm/dl (3.4-5.0); Bilirubin Direct 0.2 mg/dl (0-0.2); Bilirubin,Total 0.7 mg/dl (0.2-1.0); Calcium 9.3 mg/dl (8.6-10.3); Magnesium 1.4 mg/dl (1.7-2.4); Potassium 5.9 mmol/L (3.5-5.1)
[2023-02-05 11:52] LABS: BUN Creatinine Ratio 19.5 (10-20); Creatinine Clr Calc Pharmacy 29.3 ml/min; Est GFR (African American) 25.2 ml/min; Est GFR (Non-African American) 21.7 ml/min; Total Protein 7.5 gm/dl (6.0-8.3)
[2023-02-05] MEDS ORDERED: MAGNESIUM SULFATE / D5W 1 GM/100 ML BAG IV STA (12:22)
[2023-02-05] MEDS ORDERED: SODIUM CHLORIDE 0.9% 2,000 ML IV ONE (12:23)
[2023-02-05] MEDS ORDERED: DEXTROSE 50% 50 ML SYRINGE IV STA (12:49)
[2023-02-05] MEDS ORDERED: NovoLIN-R INSULIN PER UNIT CHARGE ONE (13:07)
--- NOTE | 2023-02-05 13:11 | History & Physical Report ---
Date of Service February 05, 2023 Assessment & Plan (1) Sepsis: Plan: Presented with acute respiratory failure with hypoxia, elevated lactic acid, DUNCAN, hyperkalemia (? from DUNCAN), tachycardia to low 100s (sinus on monitor/1st degree), temp to 38.4C. Recent switched from lasix to bumex 2mg BID, suspect dehydration contributing Unclear source of infection but suspected likely from pneumonia process (despite CXR reporting no acute finding), cannot r/o GI w/ reports diarrhea. -UA does not appear infected -Biofire negative Admit to PCU Blood cultures pending Cefepime IV, MRSA nares pending to see if needing to add MRSA coverage + doxy for atypical coverage Given 2L NSS in ER Repeat lactic 1.7 Holding further diuretics for now given DUNCAN/hyperkalemia/dehydration Will order additional 1L @ 80cc/hr x1 L for now given continued dehydration on exam Insulin/dextrose for hyperkalemia. Repeat labs this afternoon check stool studies/cdiff given reports diarrhea, legionella given resp failure CXR 2 view in AM, suspect has underlying pneumonia Heparin SQ for DVT prophylaxis given DUNCAN on CKD Monitor labs on repeat (2) Acute respiratory failure with hypoxia: Plan: typically on 4L NC, recent office visit notes SpO2 to 84-88 during visit on his usual 4L NC. To note, only on flonase and albuterol HFA at home. Biofire negative Now requiring 10L/oxymask to maintain sats pulmonary toilet with incentive spirometer/flutter valve, duonebs Hypertonic saline/mucinex to help with congestion/possible mucus plugging Sputum cx if able to obtain IV mag replacement abx as above, blood cultures pending VBG w/ normal pH 7.41, pCO2 65, normal pO2/HCO2 BiPAP HS and as needed -- to place on now/while sleeping CXR 2 view in AM. consider CT chest if no acute finding found (daughter states prior pneumonia unable to be seen on CXR) Supplemental O2 to maintain sats -- currently 10L Oxymask. titrate as able Recent PFT testing in December with severe restrictive lung disease, moderate decrease in TLC w/ severe decrease in ERV. No obstruction, significant bronchodilator response. Moderate decrease in DLCO, follow-up hemoglobin. Decrease in FVC by 340mL, decrease in FEV1 by 380mL, decrease in TLC 73--> 58%. decrease in DLCO 63-->58%, increase in weight by 23 pounds compared to 04/2018. (Note prior free kappa/lambda ratio elevation, see recent immunology testing, ?underlying amyloid vs other, consider pulm consult if not improving while inpatient) also on chronic steroids, ?PCP pneumonia a concern. Also w/ reports of diarrhea will check legionella testing (3) Leukocytosis: Plan: chronic elevations w/ his psoriatic arthritis and on prednisone 5mg daily, recently placed on stelara avoiding stress dose steroids for now, BP before fluids 85/54, now 106/43 and will monitor. If repeat lactic wnl, holding off for now monitor for need to resume (4) Elevated lactic acid level: Plan: 3.1 on admit, IVF as above, repeat wnl abx for above, monitor for source but suspected pulm/pneumonia, checking stool studies/cdiff as well will hold mag-ox, prevention further diarrhea. if needed consider SLOW mag IVF as above, continue if continued elevation (5) Acute kidney injury superimposed on chronic kidney disease: Plan: BUN/Cr up to 52/2.67, acute kidney injury in setting of CKD, likely worsened w/ recent switch to Bumex 2mg PO BID. Also hypotensive in ER, could have some ATN. Holding further Bumex, 2L IVF in ER, will continue gentle IVF but monitor for volume overload Avoid nephrotoxins/renal dose meds as able Gabapentin 900mg daily (max dose for renal function 600mg daily in 1-2 divided doses) -- will reduce to 300mg BID for now. Consider d/c metformin Monitor repeat kidney function (6) Acute hyperkalemia: Plan: K 5.9, likely from dehydration/diuretics. Insulin/dextrose ordered on admit. monitor repeat labs this evening, if still elevated consider K binding agent holding lisinopril/bumex to prevent worsening dehydration holding PO mag replacement, consider causing diarrhea possible IV mag ordered as above Monitor repeat BMP (7) Hypomagnesemia: Plan: 1.4-- IV replacement ordered. Consider SLOW mag if contributing to diarrhea, checking stool studies as above monitor labs on repeat (8) Diabetes: Plan: last a1c 7.3 holding PO metformin (edward w/ CKD/reduced CrCl, consider discontinuing), holding glimepiride continue empagliflozin given his hx CHF BSG AC/HS, SSI while inpatient. Consider glycemic consult if needing stress dose steroids (per supervising provider, to hold off for now) (9) CHF (congestive heart failure): Plan: noted, follows [facility] cards/CHF clinic, also with cardiomyopathy/HTN/HLD recent switch to bumex from lasix (prior taking 80mg lasix, now bumex 2mg PO BID) HOLDING bumex/lisinopril 30mg, HOLDING metolazone (had been taking twice weekly) continue amlodipine 5mg, metoprolol 200mg, statin, empagliflozin 10mg daily (10) Diarrhea: Plan: reports worsening diarrhea, had been having on/off, c-scope in past and never will get again. denied any blood in stool per , but check fecal occult given mesenteric artery narrowing further review of chart w/ admit in September, stool cx + for rotavirus at that time checking stool studies/cdiff as above for further eval (11) Psoriatic arthropathy: Plan: on prednisone 5mg daily, continued. monitor for need for stress dose steroids holding stelara, reports next dose due for tomorrow (able to bring in if needed) (12) Sleep apnea: Plan: Bipap HS, to bring home unit tomorrow and can place order to use (13) GERD (gastroesophageal reflux disease): Plan: continue ppi or hospital equivalent (14) Hyperlipidemia: Plan: continue statin (15) Shortness of breath: Plan: as above, further eval pending (16) Elevated procalcitonin: Plan: blood cultures pending, abx as above (17) Weakness: Plan: multifactorial, suspect combination of above, DUNCAN/hyperkalemia, infection. 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 Evaluated in C4, and daughter at bedside. On 10L Oxymask, typically uses 4L during the day and BiPAP at night ( notes did not bring with her). Noting increased shortness of breath, sputum production clear/thick white, recently got inhaler for albuterol HFA to use as needed, but does not use any nebulizers. reports he had PFT testing set up by [facility] that was completed recently. He has been having low grade temperature in ER but denies feeling such, no fevers noted at home. Denies any chest pain at present. Got breathing treatment and feeling a little better. Notes his leg swelling has been much improved and endorses recent switch from lasix to bumex for volume management but noting diarrhea on/off and complaints of stomach discomfort (denies at present). Per , accident w/ diarrhea this past weekend and was grossly yellow in color. On chronic steroids for psoriatic arthritis, recently started on Stelara and first dose in January, next dose due for tomorrow. concerns about holding this as patient w/ increased discomforts when stopped. Will discuss w/ supervising provider however would recommend holding for now. She notes it is refrigerated and will need notified to bring in if able to give. She will also bring his BiPAP for tomorrow. RN providing insulin/dextrose for hyperkalemia, will monitor labs on repeat/K binder if need. Wanting something to eat, will order. Dehydrated on exam, IVF ordered. Will be holding diuretics/repeating labs. Discussed admission for further evaluation. He is ok with CPR but NO intubation. Confirmed with family at bedside. Of note, per daughter, prior pneumonia was unable to be picked up on CXR and he required CT. Discussed nebs/breathing treatments/sputum collection and will monitor for need for CT chest for further evaluation. Labs/imaging reviewed: WBC 21.1k w/ low grade temp. Lactic 3.1. Procal 0.56. Blood cultures pending DUNCAN w/ BUN/Cr 52/2.67. K 5.9. Mag 1.4. BNP not elevated at 72. Trop 18.5 Biofire negative CXR w/o acute process. UA does not appear to be infected. Of note, prior CTAP angio noting short segment of at least moderate stenosis involving proximal inferior mesenteric artery. ER Course: 2L NSS for sepsis pathway/elevated lactic 3.1. Cefepime IV. MRSA nares pending. IV magnesium ordered. Allergies Allergy/AdvReac Type Severity Reaction Status Date / Time codeine Allergy Intermediate HIVES (PT Verified 02/05/23 10:46 DOES NOT USE PERCOCET) Home Medications Medication Instructions Recorded Confirmed Type cholecalciferol (vitamin D3) 25 5,000 unit PO QAM 11/04/20 02/05/23 History mcg (1,000 unit) capsule (Vitamin D3) lancets 33 gauge (OneTouch Delica #100 ea 09/01/21 01/17/23 Rx Lancets) omeprazole 20 mg capsule,delayed 20 mg PO QAM 09/11/21 02/05/23 History release wmlohcjdihlp-egtltnel-hiokch tablet 1 tab PO DAILY 09/14/21 02/05/23 History metoprolol succinate 200 mg 200 mg PO QAM #90 tabs 04/16/22 02/05/23 Rx tablet,extended release 24 hr atorvastatin 10 mg tablet 10 mg PO QAM #90 tabs 05/01/22 02/05/23 Rx glimepiride 2 mg tablet 2 mg PO BID #180 tabs 07/13/22 02/05/23 Rx Oxygen Home #1 ea 07/19/22 01/17/23 Rx alendronate 70 mg tablet (Fosamax) 70 mg PO .weekly #4 tabs 07/19/22 02/05/23 Rx gabapentin 300 mg capsule 300 mg PO QAM 07/19/22 02/05/23 History empagliflozin 10 mg tablet 10 mg PO DAILY #30 tabs 07/30/22 02/05/23 Rx (Jardiance) fexofenadine 180 mg tablet 180 mg PO DAILY #30 tabs 08/24/22 02/05/23 Rx fluticasone propionate 50 1 spray intranasal BID #16 grams 08/24/22 02/05/23 Rx mcg/actuation nasal spray,suspension nystatin 100,000 unit/gram topical 1 applic topical TID #60 grams 08/24/22 02/05/23 Rx powder Portable Oxygen #1 ea 09/04/22 01/17/23 Rx metformin 500 mg tablet 500 mg PO BID #180 tabs 09/06/22 02/05/23 Rx hydrocortisone 2.5 % topical cream 1 applic topical BID #28.35 grams 09/20/22 02/05/23 Rx ketoconazole 2 % shampoo 1 applic topical .COMPLEX #120 mL 09/20/22 02/05/23 Rx triamcinolone acetonide 0.1 % 1 applic topical BID #454 grams 09/20/22 02/05/23 Rx topical cream gabapentin 300 mg capsule 600 mg PO PM 09/21/22 02/05/23 History prednisone 5 mg tablet 5 mg PO DAILY #30 tabs 09/25/22 02/05/23 Rx magnesium oxide 400 mg PO TID #270 tabs 10/05/22 02/05/23 Rx metolazone 2.5 mg tablet 2.5 mg PO .COMPLEX PRN WT GAIN 5 10/05/22 02/05/23 Rx LB IN 3 DAYS. #30 tabs blood sugar diagnostic (OneTouch #100 ea 10/09/22 01/17/23 Rx Verio test strips) betamethasone dipropionate 0.05 % 1 applic topical DAILY #60 mL 10/24/22 02/05/23 Rx lotion linagliptin 5 mg tablet (Tradjenta) 5 mg PO DAILY #30 tabs 11/06/22 02/05/23 Rx ustekinumab 90 mg/mL subcutaneous 90 mg subcut .COMPLEX #2 mL 11/22/22 02/05/23 Rx syringe (Stelara) clobetasol 0.05 % topical cream 1 applic topical BID #45 grams 11/28/22 02/05/23 Rx amlodipine 5 mg tablet 5 mg PO DAILY 12/14/22 02/05/23 History lisinopril 30 mg tablet 30 mg PO DAILY #90 tabs 12/31/22 02/05/23 Rx bumetanide 2 mg tablet 2 mg PO BID #60 tabs 01/07/23 02/05/23 Rx albuterol sulfate 90 mcg/actuation 2 puff inhalation QID PRN 01/17/23 02/05/23 Rx aerosol inhaler shortness of breath or wheezing #8.5 grams spacer device for inhaler #1 ea 01/17/23 01/17/23 Rx Past Med/Surg History Medical History Acute hypoxemic respiratory failure Treated inpatient [facility] 08/28-08/31/21 Acute respiratory failure with hypoxia Acute sinusitis Chronic anemia hgb stable in the ' CKD (chronic kidney disease), stage III COPD (chronic obstructive pulmonary disease) Per remote records, pt/family denies Diabetes NIDDM Elevated troponin GERD (gastroesophageal reflux disease) Hyperlipidemia Hypertension Lumbosacral stenosis with neurogenic claudication MGUS (monoclonal gammopathy of unknown significance) Per records Morbid obesity On home oxygen therapy 2lpm HS + PRN (with walking/exertion during the day) Peripheral neuropathy Psoriatic arthritis Rheumatoid arthritis SCC (squamous cell carcinoma) Sleep apnea Stage 2 chronic kidney disease Surgical History H/O arthroscopy of shoulder Right shoulder H/O excision of mass (09/14/21) Excision Soft Tissue Mass Left Thigh Dr. Maurice History of bilateral knee replacement History of colonoscopy History of surgical removal of skin lesion Hx of appendectomy Hx of cholecystectomy Hx of hernia repair right inguinal hernia repair S/P right knee surgery multiple reconstructive knee surgeries - work related accident in 1996. Family History Father Myocardial infarction Heart disease Mother Cancer Non-Hodgkins lymphoma Sister Ovarian cancer Brother Lung cancer Grandfather Diabetes Other Family history non-contributory Denies family history of Prostate cancer Breast cancer Colorectal cancer Social History Smoking Status: Never smoker Second Hand Exposure: No; Do You Dip or Chew Tobacco: No; Hx Alcohol Use: No Hx Substance Use: No Preferred Language: Croatian Communication Ability: Effective Car Hiker Required: No Beliefs That Will Affect Care: None marital status: Current Living Situation: Spouse current occupational status: retired How many Children do You have: 3 Other Information That Helps Us Care for You: Yes Feels Safe at Home: Yes Safety Concerns: Feels Safe At This Time Childhood Exposure to Second-Hand Smoke: No Diet: regular caffeine: Yes during the past year weight has: remained stable Dental Care, Regularly: Yes Physical Activity Frequency: Daily Seatbelt Use: never Sunscreen Use: No Assistive Devices: Cane, Denture - Upper, Denture - Lower, Glasses, Oxygen - Continuous and Walker Review of Systems Respiratory: + cough, + chest congestion, + change in sputum (increased thick/white), + dyspnea and + sputum production; no pain with cough Gastrointestinal: + belching, + bloating and + diarrhea/loose stools; no blood in stools Hematologic / Lymphatic: + easy bruising Physical Exam Physical Exam: General: chronically ill appearing male sitting up in bed, family at bedside, NAD HEENT: head normocephalic, atraumatic, mm DRY, poor dentition, trachea midline Resp: tachypnea, +cough, diminished in the bases, rales bilaterally, faint wheezing, on 10L Oxymask CV: regular rate/rhythm, no significant m/r/g, trace pedal edema (per family looks much better than in past), NO calf tendernes GI: +BS, distension, nontender, no guarding/rigidity : no mendoza MSK/Neuro: no focal deficits, no slurred speech, no focal deficits, generalized weakness Psych: alert/oriented to person/place/time Skin: scattered lesions c/w psoriasis to legs, bruising to arms from lab draws Results & Data Results & Data Vital Signs (Past 12 Hours) Vital Signs Temp Pulse Resp BP Pulse Ox O2 Del Method O2 Flow Rate 02/05/23 11:31 106/43 L 02/05/23 11:31 21 91 Oxymask 10 02/05/23 11:30 24 95 02/05/23 11:01 85/54 L 02/05/23 11:01 19 02/05/23 11:00 23 94 02/05/23 10:31 122/55 L 02/05/23 10:31 91 H 96 02/05/23 10:30 89 98 02/05/23 10:23 38 H 93 02/05/23 10:23 106/52 L 02/05/23 10:23 106/52 L 02/05/23 10:00 19 98 02/05/23 09:30 29 H 92 02/05/23 12:00 37.8 C H 02/05/23 09:28 Non-rebreather 02/05/23 09:34 107 H 02/05/23 09:27 Non-rebreather 02/05/23 09:27 38.4 C H 120 H 28 H 111/83 95 Non-rebreather 10 Laboratory Results 02/05/23 02/05/23 02/05/23 Range/Units 13:28 12:45 10:51 WBC (4.8-10.8) K/ul RBC (4.70-6.10) M/uL Hgb (14.0-18.0) g/dl Hct (42.0-52.0) % MCV (80.0-100.0) fL MCH (25.0-34.0) pg MCHC (32.0-36.0) g/dL RDW Std Deviation (36.4-46.3) fL RDW Coeff of Tony (11.5-14.5) % Plt Count (130-400) K/uL MPV (9.4-12.4) fL Immature Gran % (Auto) % Neut % (Auto) % Lymph % (Auto) % [place] % (Auto) % Eos % (Auto) % Baso % (Auto) % Neut # (Auto) (1.40-6.50) K/uL Lymph # (Auto) (1.20-3.40) K/uL [place] # (Auto) (0.11-0.59) K/uL Eos # (Auto) (0.00-0.50) K/uL Baso # (Auto) (0.00-0.20) K/uL Immature Gran # (Auto) (0.01-0.20) K/uL Polychromasia PT (9.0-12.0) Seconds INR (0.9-1.1) VBG pH (7.36-7.41) VBG pCO2 (38-50) mmHg VBG pO2 mmHg VBG HCO3 mmol/L VBG O2 Saturation % VBG Base Excess mEq/L Sodium (136-145) mmol/L Potassium (3.5-5.1) mmol/L Chloride (98-107) mmol/L Carbon Dioxide (21-32) mmol/L Anion Gap (3-11) BUN (6-23) mg/dl Creatinine (0.6-1.4) mg/dl Est Cr Clr Drug Dosing ml/min Est GFR ( Amer) ml/min Est GFR (Non-Af Amer) ml/min BUN/Creatinine Ratio (10-20) Glucose (70-99(Fasting)) mg/dl Lactate 1.7 (0.4-2.0) mmol/L Calcium (8.6-10.3) mg/dl Magnesium (1.7-2.4) mg/dl Total Bilirubin (0.2-1.0) mg/dl Direct Bilirubin (0-0.2) mg/dl AST (13-39) U/L ALT (7-52) U/L Alkaline Phosphatase (34-104) U/L Troponin I High Sens (0-20) pg/ml B-Natriuretic Peptide 72 (0-100) pg/ml Total Protein (6.0-8.3) gm/dl Albumin (3.4-5.0) gm/dl Procalcitonin (0-0.5) ng/ml Urine Color Urine Appearance (Clear) Urine pH (4.5-7.5) Ur Specific [place] (1.000-1.030) Urine Protein (Negative) Urine Glucose (UA) (Negative) Urine Ketones (Negative) Urine Blood (Negative) Urine Nitrite (Negative) Urine Bilirubin (Negative) Urine Urobilinogen (Negative) Ur Leukocyte Esterase (Negative) Urine WBC (Auto) (0-5) /hpf Urine RBC (Auto) (0-4) /hpf U Hyaline Cast (Auto) (0-5) /lpf U Epithel Cells (Auto) (0-5) /lpf Urine Bacteria (Auto) (Negative) Nasal Screen MRSA (PCR) Pending Adenovirus (PCR) (NotDetected) B. pertussis DNA (PCR) (NotDetected) B.parapertussis DNA PCR (NotDetected) C. pneumoniae DNA (PCR) (NotDetected) Coronavirus OC43 (PCR) (NotDetected) Coronavirus HKU1 (PCR) (NotDetected) Coronavirus 229E (PCR) (NotDetected) SARS-CoV-2 (PCR) (NotDetected) Coronavirus NL63 (PCR) (NotDetected) Human Metapneumovir PCR (NotDetected) Influenza Type A (PCR) (NotDetected) Influenza Type B (PCR) (NotDetected) M. pneumoniae (PCR) (NotDetected) Parainfluenza 1 (PCR) (NotDetected) Parainfluenza 2 (PCR) (NotDetected) Parainfluenza 3 (PCR) (NotDetected) Parainfluenza 4 (PCR) (NotDetected) RSV (PCR) (NotDetected) Entero/Rhino (PCR) (NotDetected) 02/05/23 02/05/23 02/05/23 Range/Units 10:51 10:51 10:51 WBC (4.8-10.8) K/ul RBC (4.70-6.10) M/uL Hgb (14.0-18.0) g/dl Hct (42.0-52.0) % MCV (80.0-100.0) fL MCH (25.0-34.0) pg MCHC (32.0-36.0) g/dL RDW Std Deviation (36.4-46.3) fL RDW Coeff of Tony (11.5-14.5) % Plt Count (130-400) K/uL MPV (9.4-12.4) fL Immature Gran % (Auto) % Neut % (Auto) % Lymph % (Auto) % [place] % (Auto) % Eos % (Auto) % Baso % (Auto) % Neut # (Auto) (1.40-6.50) K/uL Lymph # (Auto) (1.20-3.40) K/uL [place] # (Auto) (0.11-0.59) K/uL Eos # (Auto) (0.00-0.50) K/uL Baso # (Auto) (0.00-0.20) K/uL Immature Gran # (Auto) (0.01-0.20) K/uL Polychromasia PT (9.0-12.0) Seconds INR (0.9-1.1) VBG pH 7.41 (7.36-7.41) VBG pCO2 65 H (38-50) mmHg VBG pO2 44 mmHg VBG HCO3 41 mmol/L VBG O2 Saturation 71.3 % VBG Base Excess 13.5 mEq/L Sodium (136-145) mmol/L Potassium (3.5-5.1) mmol/L Chloride (98-107) mmol/L Carbon Dioxide (21-32) mmol/L Anion Gap (3-11) BUN (6-23) mg/dl Creatinine (0.6-1.4) mg/dl Est Cr Clr Drug Dosing ml/min Est GFR ( Amer) ml/min Est GFR (Non-Af Amer) ml/min BUN/Creatinine Ratio (10-20) Glucose (70-99(Fasting)) mg/dl Lactate 3.1 H* (0.4-2.0) mmol/L Calcium (8.6-10.3) mg/dl Magnesium (1.7-2.4) mg/dl Total Bilirubin (0.2-1.0) mg/dl Direct Bilirubin (0-0.2) mg/dl AST (13-39) U/L ALT (7-52) U/L Alkaline Phosphatase (34-104) U/L Troponin I High Sens (0-20) pg/ml B-Natriuretic Peptide (0-100) pg/ml Total Protein (6.0-8.3) gm/dl Albumin (3.4-5.0) gm/dl Procalcitonin 0.56 H (0-0.5) ng/ml Urine Color Urine Appearance (Clear) Urine pH (4.5-7.5) Ur Specific [place] (1.000-1.030) Urine Protein (Negative) Urine Glucose (UA) (Negative) Urine Ketones (Negative) Urine Blood (Negative) Urine Nitrite (Negative) Urine Bilirubin (Negative) Urine Urobilinogen (Negative) Ur Leukocyte Esterase (Negative) Urine WBC (Auto) (0-5) /hpf Urine RBC (Auto) (0-4) /hpf U Hyaline Cast (Auto) (0-5) /lpf U Epithel Cells (Auto) (0-5) /lpf Urine Bacteria (Auto) (Negative) Nasal Screen MRSA (PCR) Adenovirus (PCR) (NotDetected) B. pertussis DNA (PCR) (NotDetected) B.parapertussis DNA PCR (NotDetected) C. pneumoniae DNA (PCR) (NotDetected) Coronavirus OC43 (PCR) (NotDetected) Coronavirus HKU1 (PCR) (NotDetected) Coronavirus 229E (PCR) (NotDetected) SARS-CoV-2 (PCR) (NotDetected) Coronavirus NL63 (PCR) (NotDetected) Human Metapneumovir PCR (NotDetected) Influenza Type A (PCR) (NotDetected) Influenza Type B (PCR) (NotDetected) M. pneumoniae (PCR) (NotDetected) Parainfluenza 1 (PCR) (NotDetected) Parainfluenza 2 (PCR) (NotDetected) Parainfluenza 3 (PCR) (NotDetected) Parainfluenza 4 (PCR) (NotDetected) RSV (PCR) (NotDetected) Entero/Rhino (PCR) (NotDetected) 02/05/23 02/05/23 02/05/23 Range/Units 10:51 10:51 10:51 WBC 21.16 H (4.8-10.8) K/ul RBC 3.37 L (4.70-6.10) M/uL Hgb 9.6 L (14.0-18.0) g/dl Hct 30.5 L (42.0-52.0) % MCV 90.5 (80.0-100.0) fL MCH 28.5 (25.0-34.0) pg MCHC 31.5 L (32.0-36.0) g/dL RDW Std Deviation 55.1 H (36.4-46.3) fL RDW Coeff of Tony 16.5 H (11.5-14.5) % Plt Count 248 (130-400) K/uL MPV 10.0 (9.4-12.4) fL Immature Gran % (Auto) 0.3 % Neut % (Auto) 91.5 % Lymph % (Auto) 4.4 % [place] % (Auto) 2.6 % Eos % (Auto) 0.9 % Baso % (Auto) 0.3 % Neut # (Auto) 19.35 H (1.40-6.50) K/uL Lymph # (Auto) 0.93 L (1.20-3.40) K/uL [place] # (Auto) 0.56 (0.11-0.59) K/uL Eos # (Auto) 0.19 (0.00-0.50) K/uL Baso # (Auto) 0.06 (0.00-0.20) K/uL Immature Gran # (Auto) 0.07 (0.01-0.20) K/uL Polychromasia 1+ PT 11.1 (9.0-12.0) Seconds INR 1.0 (0.9-1.1) VBG pH (7.36-7.41) VBG pCO2 (38-50) mmHg VBG pO2 mmHg VBG HCO3 mmol/L VBG O2 Saturation % VBG Base Excess mEq/L Sodium 132 L (136-145) mmol/L Potassium 5.9 H (3.5-5.1) mmol/L Chloride 86 L (98-107) mmol/L Carbon Dioxide 37 H (21-32) mmol/L Anion Gap 9 (3-11) BUN 52 H (6-23) mg/dl Creatinine 2.67 H (0.6-1.4) mg/dl Est Cr Clr Drug Dosing 29.3 ml/min Est GFR ( Amer) 25.2 ml/min Est GFR (Non-Af Amer) 21.7 ml/min BUN/Creatinine Ratio 19.5 (10-20) Glucose 179 H (70-99(Fasting)) mg/dl Lactate (0.4-2.0) mmol/L Calcium 9.3 (8.6-10.3) mg/dl Magnesium 1.4 L (1.7-2.4) mg/dl Total Bilirubin 0.7 (0.2-1.0) mg/dl Direct Bilirubin 0.2 (0-0.2) mg/dl AST 61 H (13-39) U/L ALT 45 (7-52) U/L Alkaline Phosphatase 38 (34-104) U/L Troponin I High Sens 18.5 (0-20) pg/ml B-Natriuretic Peptide (0-100) pg/ml Total Protein 7.5 (6.0-8.3) gm/dl Albumin 3.7 (3.4-5.0) gm/dl Procalcitonin (0-0.5) ng/ml Urine Color Urine Appearance (Clear) Urine pH (4.5-7.5) Ur Specific [place] (1.000-1.030) Urine Protein (Negative) Urine Glucose (UA) (Negative) Urine Ketones (Negative) Urine Blood (Negative) Urine Nitrite (Negative) Urine Bilirubin (Negative) Urine Urobilinogen (Negative) Ur Leukocyte Esterase (Negative) Urine WBC (Auto) (0-5) /hpf Urine RBC (Auto) (0-4) /hpf U Hyaline Cast (Auto) (0-5) /lpf U Epithel Cells (Auto) (0-5) /lpf Urine Bacteria (Auto) (Negative) Nasal Screen MRSA (PCR) Adenovirus (PCR) (NotDetected) B. pertussis DNA (PCR) (NotDetected) B.parapertussis DNA PCR (NotDetected) C. pneumoniae DNA (PCR) (NotDetected) Coronavirus OC43 (PCR) (NotDetected) Coronavirus HKU1 (PCR) (NotDetected) Coronavirus 229E (PCR) (NotDetected) SARS-CoV-2 (PCR) (NotDetected) Coronavirus NL63 (PCR) (NotDetected) Human Metapneumovir PCR (NotDetected) Influenza Type A (PCR) (NotDetected) Influenza Type B (PCR) (NotDetected) M. pneumoniae (PCR) (NotDetected) Parainfluenza 1 (PCR) (NotDetected) Parainfluenza 2 (PCR) (NotDetected) Parainfluenza 3 (PCR) (NotDetected) Parainfluenza 4 (PCR) (NotDetected) RSV (PCR) (NotDetected) Entero/Rhino (PCR) (NotDetected) 02/05/23 02/05/23 Range/Units 09:30 09:30 WBC (4.8-10.8) K/ul RBC (4.70-6.10) M/uL Hgb (14.0-18.0) g/dl Hct (42.0-52.0) % MCV (80.0-100.0) fL MCH (25.0-34.0) pg MCHC (32.0-36.0) g/dL RDW Std Deviation (36.4-46.3) fL RDW Coeff of Tony (11.5-14.5) % Plt Count (130-400) K/uL MPV (9.4-12.4) fL Immature Gran % (Auto) % Neut % (Auto) % Lymph % (Auto) % [place] % (Auto) % Eos % (Auto) % Baso % (Auto) % Neut # (Auto) (1.40-6.50) K/uL Lymph # (Auto) (1.20-3.40) K/uL [place] # (Auto) (0.11-0.59) K/uL Eos # (Auto) (0.00-0.50) K/uL Baso # (Auto) (0.00-0.20) K/uL Immature Gran # (Auto) (0.01-0.20) K/uL Polychromasia PT (9.0-12.0) Seconds INR (0.9-1.1) VBG pH (7.36-7.41) VBG pCO2 (38-50) mmHg VBG pO2 mmHg VBG HCO3 mmol/L VBG O2 Saturation % VBG Base Excess mEq/L Sodium (136-145) mmol/L Potassium (3.5-5.1) mmol/L Chloride (98-107) mmol/L Carbon Dioxide (21-32) mmol/L Anion Gap (3-11) BUN (6-23) mg/dl Creatinine (0.6-1.4) mg/dl Est Cr Clr Drug Dosing ml/min Est GFR ( Amer) ml/min Est GFR (Non-Af Amer) ml/min BUN/Creatinine Ratio (10-20) Glucose (70-99(Fasting)) mg/dl Lactate (0.4-2.0) mmol/L Calcium (8.6-10.3) mg/dl Magnesium (1.7-2.4) mg/dl Total Bilirubin (0.2-1.0) mg/dl Direct Bilirubin (0-0.2) mg/dl AST (13-39) U/L ALT (7-52) U/L Alkaline Phosphatase (34-104) U/L Troponin I High Sens (0-20) pg/ml B-Natriuretic Peptide (0-100) pg/ml Total Protein (6.0-8.3) gm/dl Albumin (3.4-5.0) gm/dl Procalcitonin (0-0.5) ng/ml Urine Color Yellow Urine Appearance Clear (Clear) Urine pH 8.0 H (4.5-7.5) Ur Specific [place] 1.012 (1.000-1.030) Urine Protein Negative (Negative) Urine Glucose (UA) 2+ H (Negative) Urine Ketones Negative (Negative) Urine Blood Negative (Negative) Urine Nitrite Negative (Negative) Urine Bilirubin Negative (Negative) Urine Urobilinogen Negative (Negative) Ur Leukocyte Esterase Trace H (Negative) Urine WBC (Auto) 1-5 (0-5) /hpf Urine RBC (Auto) 0-4 (0-4) /hpf U Hyaline Cast (Auto) 1-5 (0-5) /lpf U Epithel Cells (Auto) 0-5 (0-5) /lpf Urine Bacteria (Auto) Negative (Negative) Nasal Screen MRSA (PCR) Adenovirus (PCR) Not Detected (NotDetected) B. pertussis DNA (PCR) Not Detected (NotDetected) B.parapertussis DNA PCR Not Detected (NotDetected) C. pneumoniae DNA (PCR) Not Detected (NotDetected) Coronavirus OC43 (PCR) Not Detected (NotDetected) Coronavirus HKU1 (PCR) Not Detected (NotDetected) Coronavirus 229E (PCR) Not Detected (NotDetected) SARS-CoV-2 (PCR) Not Detected (NotDetected) Coronavirus NL63 (PCR) Not Detected (NotDetected) Human Metapneumovir PCR Not Detected (NotDetected) Influenza Type A (PCR) Not Detected (NotDetected) Influenza Type B (PCR) Not Detected (NotDetected) M. pneumoniae (PCR) Not Detected (NotDetected) Parainfluenza 1 (PCR) Not Detected (NotDetected) Parainfluenza 2 (PCR) Not Detected (NotDetected) Parainfluenza 3 (PCR) Not Detected (NotDetected) Parainfluenza 4 (PCR) Not Detected (NotDetected) RSV (PCR) Not Detected (NotDetected) Entero/Rhino (PCR) Not Detected (NotDetected) Diagnostic Findings Chest X-Ray 02/05/23 09:28 XR chest 1V portable CLINICAL HISTORY: Dyspnea. COMPARISON STUDY: Chest CT September 21, 2022. Chest radiograph January 18, 2023. FINDINGS: There is no pneumothorax or pleural effusion. Cardiomegaly is unchanged. No evidence for pulmonary edema. There is no consolidation to suggest pneumonia. Appearance of the chest is unchanged. IMPRESSION: No acute cardiopulmonary findings. No change in appearance of the chest. ACT 112: Negative or not required by law. Electronically signed by: Live Manrique M.D. 02/05/2023 10:36 AM ECG Additional Comments: EKG with NSR/1st degree AV block Supervising Physician Co-Signing Physician Notes I personally saw and examined the patient. I verified all carlos points and agree with Gwen Fairchild PA-C with the following exceptions and/or additions: 77 year old male presents to the ER with shortness of breath, sputum production getting worse over the last week. Baseline O2 requirement 4LPM. Associated decreased appetite, low grade temperature and diarrhea. No nausea, vomiting or abdominal pain. Similar symptoms to when he was diagnosed with pneumonia in June (initially thought to just be CHF). Leg swelling improved with Bumex. O/E A&Ox3, HS RRR, no murmurs, Chest bibasal crackles, no wheezes, Abdo SNT, bilateral les with venous stasis changes but no overt cellulitic changes, open area on posterior right leg A/P Sepsis - elevated WBC, tachycardia, tachypnea. Suspected source pneumonia (see below) vs diarrheal illness (prior history of rotavirus). No abdominal pain to warrant CT A/P imaging on admission. Cefepime+doxy for empiric coverage. Follow up blood/sputum cultures, Stool +c. diff PCR. Aggressive IV fluids not given due to CHF history. Lactate resolved after 2L NSS bolus. Suspected pneumonia - of note patient was admitted with similar presentation in June and suspected to be acute CHF but had to be readmitted at which point a CT chest subsequently showed pneumonia in the left base therefore he has a history of pneumonia not seen on CXR. Would favor getting a 2 view chest in the morning to investigate this further and empirically treat initially. DUNCAN - clinically he appears dry on exam, suspect from over diuresis in setting of infection and diarrhea. Continue IV fluids with LR (better outcomes in DUNCAN now sodium mostly corrected) @ 100ml/hr. Hold diuretics. Monitor closely for fluid overload. Acute hyperkalemia - secondary to DUNCAN. Insulin/dextrose given. Repeat improving to 5.3. Repeat with AM labs. Severe restrictive lung disease - on PFTs in December - suspect obesity hypoventilation, no evidence of obstructive lung disease PG Care Time/CCT Total # of Minutes Spent Total Time Spent with Patient: Total time spent is greater than 50% in coordination of care (as documented) at patient's floor/unit and/or counseling patient: Coding Level of Care Code 22412 INT INP/OBS CARE MIN Diagnoses Sepsis A41.9 Acute respiratory failure with hypoxia J96.01 Leukocytosis D72.829 Elevated lactic acid level R79.89 Acute kidney injury superimposed on chronic kidney disease N17.9; N18.9 Acute hyperkalemia E87.5 Hypomagnesemia E83.42 Diabetes E11.9 CHF (congestive heart failure) I50.9 Diarrhea R19.7 Psoriatic arthropathy L40.50 Sleep apnea G47.30 GERD (gastroesophageal reflux disease) K21.9 Hyperlipidemia E78.5 Shortness of breath R06.02 Elevated procalcitonin R79.89 Weakness R53.1 Rheumatoid arthritis M06.9 Rheumatoid arthritis location: unspecified site Rheumatoid factor presence: unspecified presence 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
[2023-02-05] MEDS ORDERED: INSULIN HUMAN REGULAR PER UNIT 10 UNITS in SYRINGE 9.9 ML IV ONE (13:15)
[2023-02-05] MEDS ORDERED: GLUCOSE 40% GEL 15 GM TUBE PO PRN (16:33)
[2023-02-05] MEDS ORDERED: GLUCAGON FOR INJ 1 MG VIAL SQ PRN (16:33)
[2023-02-05] MEDS ORDERED: ONDANSETRON INJ 2 MG/ML 2 ML VIAL IV PRN (16:33)
[2023-02-05] MEDS ORDERED: CEFEPIME 2,000 MG in SYRINGE 0 ML IV SCH (16:33)
[2023-02-05] MEDS ORDERED: GLUCOSE 10 TAB/TUBE PO PRN (16:33)
[2023-02-05] MEDS ORDERED: DEXTROSE 50% 50 ML SYRINGE IV PRN (16:33)
[2023-02-05] MEDS ORDERED: CARBOHYDRATES FOR HYPOGLYCEMIA PO PRN (16:33)
[2023-02-05] MEDS ORDERED: ACETAMINOPHEN 325 MG TAB PO PRN (16:33)
[2023-02-05] MEDS ORDERED: SODIUM CHLORIDE 0.9% 1,000 ML IV SCH (17:00)
[2023-02-05] MEDS: ALBUT/IPRATROP 3MG/0.5MG NEB 3 ML VIAL NEB SCH ×3 (17:13→22:23)
[2023-02-05] MEDS: INSULIN ASPART PER UNIT CHARGE SC SCH ×2 (17:33→20:18)
[2023-02-05] MEDS: MAGNESIUM SULFATE / D5W 1 GM/100 ML BAG IV SCH ×2 (17:40→19:59)
[2023-02-05] MEDS: HEPARIN SOD 5,000 UNIT/0.5 ML VIAL SQ SCH (17:42)
[2023-02-05 17:53] LABS: BUN Creatinine Ratio 20.5 (10-20); Calcium 8.9 mg/dl (8.6-10.3); Creatinine Clr Calc Pharmacy 31.2 ml/min; Est GFR (African American) 27.4 ml/min; Est GFR (Non-African American) 23.7 ml/min; Potassium 5.3 mmol/L (3.5-5.1)
[2023-02-05 18:31] LABS: Lyme Ab IgG w/WB Rflx Negative (Negative); Lyme Ab IgM w/WB Rflx Negative (Negative)
[2023-02-05] MEDS: SODIUM CHLOR 7% 4 ML NEB NEB SCH (19:05)
[2023-02-05] MEDS: LACTATED RINGER'S 1,000 ML IV SCH (19:59)
[2023-02-05] MEDS: DOXYCYCLINE HYCLATE 100 MG in DEXTROSE 5% 100 ML IV SCH (20:00)
[2023-02-05] MEDS: guaiFENesin 600 MG TABCR PO SCH (20:03)
[2023-02-05] MEDS: GABAPENTIN 300 MG CAP PO SCH (20:03)
[2023-02-05] MEDS: FLUTICASONE PROPIONATE NA SPR 16 GM BTL NAE SCH (20:04)
[2023-02-05] MEDS: HYDROCORTISONE 2.5% CR 30 GM TUBE EXT SCH (20:05)
[2023-02-05] MEDS: CLOBETASOL PROPIONATE 0.05% OINT 15 GM TUBE EXT SCH (20:06)
[2023-02-05] MEDS: TRIAMCINOLONE ACET 0.1% CR 15 GM TUBE TOP SCH (20:11)
--- OUTSIDE RECORDS SUMMARY | 2023-02-05 23:35 | External Medical Summary | Summary of Care ---
Author Name Unknown Organization [facility] Address [address] [place] [facility] [place] [address] Phone [phone] Care Team Providers Care Family Sociologist Name Role Phone ToniacruzitoRobbie toney DO Primary Care Provi frank Encounter Details Date Type Department Care Team Description 11/27/2022 Orders Only Rheumatology [place] [address] [address] [place] [address] Rajendra Crowley MD [facility] [email or web address] [place] [id number] Allergies Active Allergy Reactions Severity Noted Date Comments Codeine 09/20/2014 documented as of this encounter (statuses as of 11/27/2022) Medications Medication Sig Dispensed Refills Start Date End Date Status Cholecalciferol (VITAMIN D) 1000 UNIT Capsule 1 daily 0 Active amLODIPine (NORVASC) 10 MG Tablet 1 daily 0 07/13/2016 Active metFORMIN (GLUCOPHAGE) 500 MG Tablet 2 tabs daily 0 03/07/2017 Active clobetasol propionate (TEMOVATE) 0.05 % ointment As needed 0 01/30/2017 Active triamcinolone acetonide (ARISTOCORT) 0.1 % cream As directed 0 04/02/2017 Active atorvaSTATin (LIPITOR) 10 MG Tablet 1 daily 0 10/04/2017 Active furosemide (LASIX) 40 MG Tablet 1 tab daily 0 04/01/2018 Active potassium chloride ER 10 MEQ CPCR 1 tab daily 0 04/10/2018 Active traMADol (ULTRAM) 50 MG TabletIndications: Psoriatic arthritis (HCC),Acute pain of both shoulders Take 2 Tabs by mouth every 6 hours as needed for Pain. 240 Tab 3 05/05/2018 Active glimepiride (AMARYL) 2 MG Tablet 1 Tablet. 1 tab twice daily 0 05/29/2018 Active Metoprolol Succinate ER 200 MG TB24 1 Tablet. 1 tab daily 0 10/13/2019 Active TRADJENTA 5 MG Tablet 1 Tablet. 1 tab daily 0 12/02/2019 Active Gabapentin 300 MG Oral Capsule (Neurontin) 1 Capsule in the morning and 1 Capsule at noon and 1 Capsule before bedtime. 0 03/13/2021 Active metOLazone 2.5 MG Oral Tablet (Zaroxolyn) Take 1 Tablet by mouth in the morning. 0 Active Magnesium Oxide 400 MG Oral Capsule Take 1 Capsule by mouth in the morning. 0 Active predniSONE 5 MG Oral Tablet (Deltasone)Indicat ions:Psoriatic arthritis (HCC) TAKE 1 TABLET BY MOUTH DAILY. 90 Tablet 3 03/13/2022 Active Empagliflozin 10 MG Oral Tablet Take by mouth daily. 0 01/11/2022 Active PX Complete Senior Multivits Oral Tablet take 1 tablet by oral route every day 0 Active Alendronate Sodium 70 MG Oral Tablet (Fosamax)Indicatio ns:Steroid-induced osteoporosis Take 1 Tablet by mouth once a week. 4 Tablet 6 06/27/2022 Active Omeprazole 20 MG Oral Capsule Delayed Release (PriLOSEC) Take 1 Capsule by mouth in the morning. 90 Capsule 1 08/03/2022 Active OneTouch Verio In Vitro Strip 0 07/13/2022 Active Fluticasone Propionate 50 MCG/ACT Nasal Suspension (Flonase) 0 08/24/2022 Active Lisinopril 30 MG Oral Tablet 1 daily 0 07/24/2022 Active Nystatin 275045 UNIT/GM External Powder (Nystop) 0 08/24/2022 Active Clobetasol Propionate 0.05 % External Cream (Temovate) 0 08/17/2022 Active Ustekinumab 90 MG/ML Subcutaneous Solution Prefilled Syringe (Mela Artisansa) Inject 90 mg subcutaneously at 0 and 4 weeks; then every 12 weeks 1 mL 4 09/27/2022 Active predniSONE 5 MG Oral Tablet (Deltasone) Prednisone: 15 mg daily x 4 days, 12.5 mg daily x 4 days, 10 mg daily x 4 days, 7.5 mg daily x 4 days, 5 mg daily x 4 days, stop taper; resume maintenance dose 40 Tablet 0 09/18/2022 Active documented as of this encounter (statuses as of 11/27/2022) Active Problems Problem Noted Date Body mass index (BMI) of 45.0 to 49.9 in adult 03/11/2017 Overview: Per Obesity protocol #1 Hyperlipidemia 09/17/2014 GERD (gastroesophageal reflux disease) 0 09/17/2014 Hypertension 09/17/2014 Psoriatic arthritis 09/17/2014 Overview: On Remicade 600 mg every 6 weeks--remicade discontinued due to persistent transaminitis; on Otezla. Diabetes mellitus 09/17/2014 Diabetic neuropathy 09/17/2014 High risk medication use 09/17/2014 CKD (chronic kidney disease) stage 2, GF R 60-89 ml/min 09/17/2014 Generalized osteoarthritis 09/17/2014 Benign neoplasm of colon 01/04/2009 Overview: adenomatous polyps, f/u in 5 yr documented as of this encounter (statuses as of 11/27/2022) Immunizations Name Administration Dates Next Due COVID-19 mRNA, LNP-s, No Pre serve, 2-Dose Series (Moderna) 04/19/2021,08/10/2020,07/13/2020 documented as of this encounter Social History Tobacco Use Types Packs/Day Years Used Date Smoking Tobacco: Never Smokeless Tobacco: Never Alcohol Use Standard Drinks/Week Comments Yes 0 (1 standard drink = 0.6 oz pur e alcohol) 1-2 drinks/month Sex Assigned at Date Recorded Not on file Job Start Date Occupation Industry Not on file Not on file Not on file documented as of this encounter Plan of Treatment Health Maintenance Due Date Last Done Comments Yearly B-12 1945 Pneumococcal Vaccine: 65+ Years (1 - PCV) 1949 Depression Screening, Annual for Pts 12 and Over 1955 Albumin/Creatinine Ratio 1961 DIABETES-EYE EXAM 1961 DIABETES-FOOT EXAM 1961 Hepatitis C Screening 1961 DTaP,Tdap,and Td Vaccines (1 - Tdap) 1962 COLONOSCOPY-EVERY 5 YRS AGES 18-100 01/04/2014 01/04/2009 HbA1c 05/03/2021 10/31/2020, 03/02/2020 *BASELINE EKG FOR HTN 06/19/2021 Influenza Vaccine (FLU shot) (Season Ended) 2023 GFR 08/28/2023 11/12/2022, 08/09, 04/16/2022, Additional history exists Zoster Vaccines Completed 04/28/2020, 02/17/2020 COVID-19 Vaccine Completed 04/24/2022, 03/2021, 08/10/2020, Additional history exists GARDASIL-HPV IMMUNIZATION SERIES Aged Out No longer eligible based on patient's age to complete this topic Hepatitis B Aged Out No longer eligi ble based on patient's age to complete this topic MENINGOCOCCAL (MENACTRA/MENVEO) Aged Out No longer eligible based on patient's age to complete this topic documented as of this encounter Medical Devices Not on filedocumented as of this encounter Procedures Procedure Name Priority Date/Time Associated Diagnosis Comments CHEMISTRY-OUTSIDE Routine 11/12/2022 documented in this encounter Results * (ABNORMAL) CHEMISTRY-OUTSIDE (11/12/2022) Not all results display below - see scan for full detail OUTSIDE LAB (SEE SCANNED REPORT) Comment:SCAN INCL: CMP, RUDY L, LIPIDS,IGG, IGA, IGM, LDH, CBCD,PTH,VIT D CREATININE-OUTSID E LAB 1.32 0.6 - 1.4 MG/DL OUTSIDE LAB (SEE SCANNED REPORT) EGFR-OUTSIDE LAB 50.9 OUT SIDE LAB (SEE SCANNED REPORT) POTASSIUM-OUTSIDE LAB 4.7 3.5 - 5.1 MMOL/L OUTSIDE LAB (SEE SCANNED REPORT) GLUCOSE-OUTSIDE LAB 165(A) 70 - 99 MG/DL OUTSIDE LAB (SEE SCANNED REPORT) HOURS FASTING OUTSID E LAB (SEE SCANNED REPORT) TRIGLYCERIDES-OUT SIDE LAB 206(A) 0 - 150 MG/DL OUTSIDE LAB (SEE SCANNED REPORT) CHOLESTEROL-OUTSI DE LAB 203(A) 0 - 200 MG/DL OUTSIDE LAB (SEE SCANNED REPORT) HDL-OUTSIDE LAB 47 MG/DL OUTS ADI LAB (SEE SCANNED REPORT) CHOL/HDL RATIO-OUTSIDE LAB 4.3 OUTSIDE LA B (SEE SCANNED REPORT) LDL (CALCULATED)-OUTS ADI LAB 115 MG/DL OUTSIDE LAB (SEE SCANNED REPORT) LDL (DIRECT MEASURE)-OUTSIDE LAB OUTSIDE LAB (SEE SCANNED REPORT) HEMOGLOBIN, [id number] LAB OUTSIDE LAB (SEE SCANNED REPORT) PHOSPHORUS-OUTSID E LAB 3.5 2.5 - 4.9 MG/DL OUTSIDE LAB (SEE SCANNED REPORT) PTH-OUTSIDE LAB 43.4(A) 12.0 - 88.0 PG/ML OUTSIDE LAB (SEE SCANNED REPORT) MICROALBUMIN RATIO-OUTSIDE LAB OUTSIDE LA B (SEE SCANNED REPORT) PROTEIN, UA-OUTSIDE LAB OUTSIDE LAB (SEE SCANNED REPORT) HEMOGLOBIN-OUTSID E LAB 11.2(A) 14.0 - 18.0 G/DL OUTSIDE LAB (SEE SCANNED REPORT) 11/12/2022 History Per Patient LABORATORY OUTSIDE LAB (SEE SCANNED REPORT) documented in this encounter Care Teams Family Sociologist Relationship Specialty Start Date End Date Robbie Mohr DO [address] [place] [address] [place] [address] PCP - General Family Medicine 06/27/22 documented as of this encounter
--- OUTSIDE RECORDS SUMMARY | 2023-02-05 23:35 | External Medical Summary | Summary of Care ---
Author Name Unknown Organization [facility] Address [address] [address] Phone [phone] Care Team Providers Care Rotoprinter Name Role Phone Robbie Mohr DO Primary Care Provi frank Reason for Visit * Reason Onset Date Comments Medication Pre-auth 09/18/2022 Advice 10/12/2022 Financial assist ance program Encounter Details Date Type Department Care Team Description 09/18/2022 Telephone Rheumatology [facility] [address] [place] [address] Mary Shaw PA-C [address] [place] [address] Medication Pre-auth; Advice (Financial ass... Allergies Active Allergy Reactions Severity Noted Date Comments Codeine 09/20/2014 documented as of this encounter (statuses as of 11/08/2022) Medications Medication Sig Dispensed Refills Start Date End Date Status Cholecalciferol (VITAMIN D) 1000 UNIT Capsule 1 daily 0 Active amLODIPine (NORVASC) 10 MG Tablet 1 daily 0 7 Active metFORMIN (GLUCOPHAGE) 500 MG Tablet 2 tabs daily 0 7 Active clobetasol propionate (TEMOVATE) 0.05 % ointment As needed 0 7 Active triamcinolone acetonide (ARISTOCORT) 0.1 % cream As directed 0 7 Active atorvaSTATin (LIPITOR) 10 MG Tablet 1 daily 0 8 Active furosemide (LASIX) 40 MG Tablet 1 tab daily 0 8 Active potassium chloride ER 10 MEQ CPCR 1 tab daily 0 8 Active traMADol (ULTRAM) 50 MG TabletIndication s:Psoriatic arthritis (HCC),Acute pain of both shoulders Take 2 Tabs by mouth every 6 hours as needed for Pain. 240 Tab 3 8 Active glimepiride (AMARYL) 2 MG Tablet 1 Tablet. 1 tab twice daily 0 8 Active Metoprolol Succinate ER 200 MG TB24 1 Tablet. 1 tab daily 0 0 Active TRADJENTA 5 MG Tablet 1 Tablet. 1 tab daily 0 0 Active Gabapentin 300 MG Oral Capsule (Neurontin) 1 Capsule in the morning and 1 Capsule at noon and 1 Capsule before bedtime. 0 1 Active metOLazone 2.5 MG Oral Tablet (Zaroxolyn) Take 1 Tablet by mouth in the morning. 0 Active Magnesium Oxide 400 MG Oral Capsule Take 1 Capsule by mouth in the morning. 0 Active predniSONE 5 MG Oral Tablet (Deltasone)Indic ations:Psoriatic arthritis (HCC) TAKE 1 TABLET BY MOUTH DAILY. 90 Tablet 3 2 Active Empagliflozin 10 MG Oral Tablet Take by mouth daily. 0 2 Active PX Complete Senior Multivits Oral Tablet take 1 tablet by oral route every day 0 Active Alendronate Sodium 70 MG Oral Tablet (Fosamax)Indicat ions:Steroid-ind uced osteoporosis Take 1 Tablet by mouth once a week. 4 Tablet 6 3 Active Omeprazole 20 MG Oral Capsule Delayed Release (PriLOSEC) Take 1 Capsule by mouth in the morning. 90 Capsule 1 3 Active OneTouch Verio In Vitro Strip 0 3 Active Fluticasone Propionate 50 MCG/ACT Nasal Suspension (Flonase) 0 3 Active Lisinopril 30 MG Oral Tablet 1 daily 0 3 Active Nystatin 463578 UNIT/GM External Powder (Nystop) 0 3 Active Clobetasol Propionate 0.05 % External Cream (Temovate) 0 3 Active Ustekinumab 90 MG/ML Subcutaneous Solution Prefilled Syringe (Stelera) Inject 90 mg subcutaneously at 0 and 4 weeks; then every 12 weeks 1 mL 4 3 Active predniSONE 5 MG Oral Tablet (Deltasone) Prednisone: 15 mg daily x 4 days, 12.5 mg daily x 4 days, 10 mg daily x 4 days, 7.5 mg daily x 4 days, 5 mg daily x 4 days, stop taper; resume maintenance dose 40 Tablet 0 3 Active Tofacitinib Citrate ER 11 MG Oral Tablet Extended Release 24 Hour (Xeljanz XR)Indications:P soriatic arthritis (HCC) TAKE 1 TABLET (11MG) BY MOUTH IN THE MORNING 30 Tablet 11 2 09/28/19 23 Discontinued documented as of this encounter (statuses as of 11/08/2022) Active Problems Problem Noted Date Body mass [...] as of this encounter (statuses as of 11/08/2022) Immunizations Name Administration Dates Next Due COVID-19 [...] on file documented as of this encounter Miscellaneous Notes * Telephone Encounter - Cuca Segura LPN - 10/16/2022 3:05 PM EDT Faxed back to assistance team * Telephone Encounter - Mary Shaw PA-C - 10/16/2022 7:59 AM EDT Signed. * Telephone Encounter - Cuca Segura LPN - 10/16/2022 7:52 AM EDT Form received, on Mary's desk * Telephone Encounter - Ave Marin LPN - 10/15/2022 8:52 AM EDT Last note in the referral states a decision will be make within 7 days. Has medication been approved? If so has ludwin been called checking on assistance paying for the medication? Thank you! * Telephone Encounter - LIDYA Parekh - 10/12/2022 1:02 PM EDT Patient's Katherine called back to ask the nurse or doctor if there is any assistance program thatthe patient can benefit from, to get Stelara covered.Please contact patient/ and advise, thank you. * Telephone Encounter - LIDYA Johansen - 10/12/2022 12:56 PM EDT called checking on medication. Thank you * Telephone Encounter - LIDYA Lockett - 09/28/2022 2:47 PM EDT I called and spoke with the rep from [facility] and she said there was an approved claim on 09/20 in error, on the they reversed their decision and denied it,the patient has since initiated an appeal himself, it is now pending review as of 09/26. They denied the claim due to the members weight. Wewill be notified of the decision within 7 days. Mignon White Medication Horticultural Agent [facility] 09/28/22,2:46 PM * Telephone Encounter - Mary Shaw PA-C - 09/27/2022 9:02 AM EDT Done. * Telephone Encounter - Cuca Segura LPN - 09/26/2022 1:57 PM EDT Drug Name and Formulation: STELARA 90 MG How Prescribed(directions/sig): injection at 0 and 4 weeks; then every 12 weeks Day Supply: 84 Valid auth start date: 07/25/22 Valid auth end date: 09/22/23 Rx Insurance Info: [employer] GSP * Telephone Encounter - LIDYA Lockett - 09/20/2022 9:59 AM EDT José Thurman, I will send the request in, it is the correct pool, that must have been put in error. * Telephone Encounter - Cuca Segura LPN - 09/19/2022 10:01 AM EDT This are self injections that pt will be doing at home, not sure why we need to send to [facility] precertinfusions??? Or has something changed? * Telephone Encounter - LIDYA Leone - 09/19/2022 9:54 AM EDT Please route to correct pool for Stelara loading dose [id number] * Telephone Encounter - Cuca Segura LPN - 09/19/2022 9:42 AM EDT Please auth loading and maintenance dose, thx * Telephone Encounter - Mary Shaw PA-C - 09/18/2022 2:28 PM EDT Auth Stelara: Prior medications steroids, methotrexate, Enbrel, Remicade (1999- August 2016) discontinued due topersistent transaminitis and diagnosis of MGUS, Otezla-loss of efficacy;Cosentyx(12/25-11/17/18);Taltz (11/26--04/29) -loss of efficacy, [id number] daily,Xeljanz XR loss of efficacy documented in this encounter Plan of Treatment Health Maintenance [...] (FLU shot) (Season Ended) 2023 GFR 08/28/2023 08/27/2022, 110 12/2021, 11/29/2021, Additional history exists Zoster Vaccines Completed 04/28/2020, [...] Not on filedocumented as of this encounter Visit Diagnoses Diagnosis Plaque psoriasis- Primary Other psoriasis Psoriatic arthritis (HCC) Psoriatic arthropathy documented in this encounter Care Teams Rotoprinter Relationship Specialty Start Date End Date Robbie Mohr DO [address] [place], [place] [address] [id number] PCP - General Family Medicine 06/27/22 documented as of this encounter
--- OUTSIDE RECORDS SUMMARY | 2023-02-05 23:35 | External Medical Summary | Summary of Care ---
Author Name Unknown Organization [facility] [address] [facility] [address] Phone [phone] Care Team Providers Care Barrel Rifler Name Role Phone Robbie Mohr DO Primary Care Provi frank Reason for Visit * Reason Onset Date Comments Medication Pre-auth 09/18/2022 Advice 10/12/2022 Financial assist ance program Encounter Details Date Type Department Care Team Description 09/18/2022 Telephone Rheumatology [facility] [address] [employer] [place] [address] Mary Shaw PA-C [address] [place] [address] Medication Pre-auth; Advice (Financial ass... Allergies Active Allergy Reactions Severity Noted Date Comments Codeine 09/20/2014 documented as of this encounter (statuses as of 10/25/2022) Medications Medication Sig Dispensed Refills Start Date [...] Tablet 1 daily 0 3 Active Nystatin 729035 UNIT/GM External Powder (Nystop) 0 3 Active [...] as of this encounter (statuses as of 10/25/2022) Active Problems Problem Noted Date Body mass [...] as of this encounter (statuses as of 10/25/2022) Immunizations Name Administration Dates Next Due COVID-19 [...] called and spoke with the rep from [facility] and she said there was an approved claim on 09/20 in error, on the they reversed their decision and denied it,the patient has since initiated an appeal himself, it is now pending review as of 09/26. They denied the claim due to the members weight. Wewill be notified of the decision within 7 days. Mignon White Medication Plow Mechanic [facility] 09/28/22,2:46 PM * Telephone [...] sure why we need to send to [facility] precertinfusions??? Or has something changed? * Telephone Encounter - LIDYA Leone - 09/19/2022 9:54 AM EDT Please route to correct pool for Stelara loading dose [id number] * Telephone Encounter - Cuca Segura LPN - 09/19/2022 9:42 AM EDT Please auth loading and maintenance dose, thx * Telephone Encounter - Mary Shaw PA-C - 09/18/2022 2:28 PM EDT Auth Stelara: Prior medications steroids, methotrexate, Enbrel, Remicade (1999- August 2016) discontinued due topersistent transaminitis and diagnosis of MGUS, Otezla-loss of efficacy;Cosentyx(12/25-11/17/18);Taltz (11/26--04/29) -loss of efficacy, [id number] daily,Xeljanz XR loss of efficacy documented in [...] COLONOSCOPY-EVERY 5 YRS AGES 18-100 01/04/2014 01/04/2009 HgA1C 05/03/2021 10/31/2020, 03/02/2020 *BASELINE EKG FOR HTN 06/19/2021 Influenza Vaccine (FLU shot) (Season Ended) 2023 GFR - Renal Function 08/28/2023 08/27/2022, 04/16/2022, 11/29/2021, Additional history exists Zoster Vaccines Completed [...] arthropathy documented in this encounter Care Teams Barrel Rifler Relationship Specialty Start Date End Date Robbie Mohr DO [address] [place], [place] [address] [address] PCP - General Family Medicine 06/27/22 documented as of this encounter
--- OUTSIDE RECORDS SUMMARY | 2023-02-05 23:35 | External Medical Summary | Summary of Care ---
Author Name Unknown Organization [facility] Address [address] [facility] [address] Phone [phone] Care Team Providers Care Livestock Auctioneer Name Role Phone Robbie Mohr DO Primary Care Provi frank Reason for Visit * Reason Onset Date Comments Medication Pre-auth 09/18/2022 Advice 10/12/2022 Financial assist ance program Encounter Details Date Type Department Care Team Description 09/18/2022 Telephone Rheumatology [facility] [address] [place] [address] Mary Shaw PA-C [address] [place] [address] Medication Pre-auth; Advice (Financial ass... Allergies Active [...] Tablet 1 daily 0 3 Active Nystatin 620869 UNIT/GM External Powder (Nystop) 0 3 Active [...] called and spoke with the rep from [facility] and she said there was an approved claim on 09/20 in error, on the they reversed their decision and denied it,the patient has since initiated an appeal himself, it is now pending review as of 09/26. They denied the claim due to the members weight. Wewill be notified of the decision within 7 days. Mignon White Medication Bow Maker [facility] 09/28/22,2:46 PM * Telephone Encounter - Mary Shaw PA-C - 09/27/2022 9:02 AM EDT Done. * Telephone Encounter - Cuca Seguar LPN - 09/26/2022 1:57 PM EDT Drug [...] sure why we need to send to [facility] precertinfusions??? Or has something changed? * Telephone Encounter - LIDYA Leone - 09/19/2022 9:54 AM EDT Please route to correct pool for Stelara loading dose [id number] * Telephone Encounter - Cuca Segura LPN - 09/19/2022 9:42 AM EDT Please auth loading and maintenance dose, thx * Telephone Encounter - Mary Shaw PA-C - 09/18/2022 2:28 PM EDT Auth Stelara: Prior medications steroids, methotrexate, Enbrel, Remicade (1999- August 2016) discontinued due topersistent transaminitis and diagnosis of MGUS, Otezla-loss of efficacy;Cosentyx(12/25-11/17/18);Taltz (11/26--04/29) -loss of efficacy, gwffvtfjzs5gf daily,Xeljanz XR loss of efficacy documented in [...] arthropathy documented in this encounter Care Teams Livestock Auctioneer Relationship Specialty Start Date End Date Robbie Mohr DO [address] [place], [place] [address] [address] PCP - General Family Medicine 06/27/22 documented as of this encounter
--- OUTSIDE RECORDS SUMMARY | 2023-02-05 23:35 | External Medical Summary | Summary of Care ---
Author Name Unknown Organization [facility] [address] [facility] [address] Phone [phone] Care Team Providers Care Fisheries Manager Name Role Phone Robbie Mohr DO Primary Care Provi frank Reason for Visit * Reason Onset Date Comments Medication Pre-auth 09/18/2022 Advice 10/12/2022 Financial assist ance program Encounter Details Date Type Department Care Team Description 09/18/2022 Telephone Rheumatology [facility] [address] [place] [address] Mary Shaw PA-C [address] [place] [address] Medication Pre-auth; Advice (Financial ass... Allergies Active Allergy Reactions Severity Noted Date Comments Codeine 09/20/2014 documented as of this encounter (statuses as of 11/07/2022) Medications Medication Sig Dispensed Refills Start Date [...] Tablet 1 daily 0 3 Active Nystatin 485393 UNIT/GM External Powder (Nystop) 0 3 Active [...] as of this encounter (statuses as of 11/07/2022) Active Problems Problem Noted Date Body mass [...] as of this encounter (statuses as of 11/07/2022) Immunizations Name Administration Dates Next Due COVID-19 [...] called and spoke with the rep from [facility] and she said there was an approved claim on 09/20 in error, on the they reversed their decision and denied it,the patient has since initiated an appeal himself, it is now pending review as of 09/26. They denied the claim due to the members weight. Wewill be notified of the decision within 7 days. Mignon White Medication Soaker [facility] 09/28/22,2:46 PM * Telephone [...] sure why we need to send to [facility] precertinfusions??? Or has something changed? * Telephone Encounter - LIDYA Leone - 09/19/2022 9:54 AM EDT Please route to correct pool for Stelara loading dose [id number] * Telephone Encounter - Cuca Segura LPN - 09/19/2022 9:42 AM EDT Please auth loading and maintenance dose, thx * Telephone Encounter - Mary Shaw PA-C - 09/18/2022 2:28 PM EDT Auth Stelara: Prior medications steroids, methotrexate, Enbrel, Remicade (1999- August 2016) discontinued due topersistent transaminitis and diagnosis of MGUS, Otezla-loss of efficacy;Cosentyx(12/25-11/17/18);Taltz (11/26--04/29) -loss of efficacy, [id number] daily,Xeljanz XR loss of efficacy documented in [...] arthropathy documented in this encounter Care Teams Fisheries Manager Relationship Specialty Start Date End Date Robbie Mohr DO [address] [place], [place] [address] [address] PCP - General Family Medicine 06/27/22 documented as of this encounter
--- OUTSIDE RECORDS SUMMARY | 2023-02-05 23:35 | External Medical Summary ---
Author Name UNSPECIFIED Address Unknown Organization [facility] History of Encounters Reason for Assessment: Start of care - f urther visits planned Inpatient discharge facility: Past 14 Da ys: Discharged From Short Stay Acute Hospital Most Recent Inpatient Discharge Date: Functional Assessment Patient Living Situation: Patient lives with other person(s) in the home: Around the clock When Dyspneic: With minimal exertio n (e.g., while eating, talking, or performing other ADLs) or with agitation Bowel Incontinence Frequency: Very rarel y or never has bowel incontinence Cognitive and Behavioral and Psychiatric Symptoms: None Current Ability: Bathing: able to partic ipate in bathing self in shower or tub, but requires presence of another person throughout the bath for assistance or supervision. Current Ability: Ambulation: Able to wal k only with the supervision or assistance of another person at all times. Current: Management Of Oral Medications: Able to take medication(s) at the correct times if given reminders by another person at the appropriate times Problems Primary Home Care Diagnosis ICD Code: S3 1.000D, Unsp opn wnd low back and pelv w/o penet retroperiton, subs Home Care Diagnosis 1: ICD Code: B95.4, Oth streptococcus as the cause of diseases classd elswhr Home Care Diagnosis 1: Severity Ratin Home Care Diagnosis 2: ICD Code: L40.9, Psoriasis, unspecified Home Care Diagnosis 2: Severity Ratin Home Care Diagnosis 3: ICD Code: E11.22, Type 2 diabetes mellitus w diabetic chronic kidney disease Home Care Diagnosis 3: Severity Ratin Home Care Diagnosis 4: ICD Code: 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
--- OUTSIDE RECORDS SUMMARY | 2023-02-05 23:35 | External Medical Summary | Summary of Care ---
Author Name Unknown Organization [facility] Address [address] [facility] [address] Phone [phone] Care Team Providers Care Chemical Machine Tender Name Role Phone Robbie Mohr DO Primary Care Provi frank Reason for Visit * Reason Onset Date Comments Medication Pre-auth 09/18/2022 Advice 10/12/2022 Financial assist ance program Encounter Details Date Type Department Care Team Description 09/18/2022 Telephone Rheumatology [facility] [address] [place] [address] Mary Shaw PA-C [address] [place] [address] Medication Pre-auth; Advice (Financial ass... Allergies Active Allergy Reactions Severity Noted Date Comments Codeine 09/20/2014 documented as of this encounter (statuses as of 11/12/2022) Medications Medication Sig Dispensed Refills Start Date [...] Tablet 1 daily 0 3 Active Nystatin 209476 UNIT/GM External Powder (Nystop) 0 3 Active [...] as of this encounter (statuses as of 11/12/2022) Active Problems Problem Noted Date Body mass [...] as of this encounter (statuses as of 11/12/2022) Immunizations Name Administration Dates Next Due COVID-19 [...] called and spoke with the rep from [facility] and she said there was an approved claim on 09/20 in error, on the they reversed their decision and denied it,the patient has since initiated an appeal himself, it is now pending review as of 09/26. They denied the claim due to the members weight. Wewill be notified of the decision within 7 days. Mignon White Medication College Coach [facility] 09/28/22,2:46 PM * Telephone [...] need to send to [facility] precertinfusions??? Or has something changed? * Telephone Encounter - LIDYA Leone - 09/19/2022 9:54 AM EDT Please route to correct pool for Stelara loading dose [id number] * Telephone Encounter - Cuca Segura LPN - 09/19/2022 9:42 AM EDT Please auth loading and maintenance dose, thx * Telephone Encounter - Mary Shaw PA-C - 09/18/2022 2:28 PM EDT Auth Stelara: Prior medications steroids, methotrexate, Enbrel, Remicade (1999- August 2016) discontinued due topersistent transaminitis and diagnosis of MGUS, Otezla-loss of efficacy;Cosentyx(12/25-11/17/18);Taltz (11/26--04/29) -loss of efficacy, hhukjlcmor8pe daily,Xeljanz XR loss of efficacy documented in [...] arthropathy documented in this encounter Care Teams Chemical Machine Tender Relationship Specialty Start Date End Date Robbie Mohr DO [address] [place], [place] [address] [address] PCP - General Family Medicine 06/27/22 documented as of this encounter
--- OUTSIDE RECORDS SUMMARY | 2023-02-05 23:36 | External Medical Summary | Summary of Care ---
Author Name Unknown Organization [facility] Address [address] [facility] [address] Phone [phone] Care Team Providers Care Filter Tip Inspector Name Role Phone Robbie Mohr DO Primary Care Provi frank Reason for Visit * Reason Onset Date Comments Medication Pre-auth 09/18/2022 Advice 10/12/2022 Financial assist ance program Encounter Details Date Type Department Care Team Description 09/18/2022 Telephone Rheumatology [facility] [address] [place] [address] Mary Shaw PA-C [address] [place] [address] Medication Pre-auth; Advice (Financial ass... Allergies Active Allergy Reactions Severity Noted Date Comments Codeine 09/20/2014 documented as of this encounter (statuses as of 10/16/2022) Medications Medication Sig Dispensed Refills Start Date [...] Tablet 1 daily 0 3 Active Nystatin 604061 UNIT/GM External Powder (Nystop) 0 3 Active [...] as of this encounter (statuses as of 10/16/2022) Active Problems Problem Noted Date Body mass [...] as of this encounter (statuses as of 10/16/2022) Immunizations Name Administration Dates Next Due COVID-19 [...] encounter Miscellaneous Notes * Telephone Encounter - Mary Shaw PA-C [...] called and spoke with the rep from [facility] and she said there was an approved claim on 09/20 in error, on the they reversed their decision and denied it,the patient has since initiated an appeal himself, it is now pending review as of 09/26. They denied the claim due to the members weight. Wewill be notified of the decision within 7 days. Mignon White Medication Jar Capper [facility] 09/28/22,2:46 PM * Telephone [...] sure why we need to send to [facility] precertinfusions??? Or has something changed? * Telephone Encounter - LIDYA Leone - 09/19/2022 9:54 AM EDT Please route to correct pool for Stelara loading dose [id number] * Telephone Encounter - Cuca Segura LPN - 09/19/2022 9:42 AM EDT Please auth loading and maintenance dose, thx * Telephone Encounter - Mary Shwa PA-C - 09/18/2022 2:28 PM EDT Auth Stelara: Prior medications steroids, methotrexate, Enbrel, Remicade (1999- August 2016) discontinued due topersistent transaminitis and diagnosis of MGUS, Otezla-loss of efficacy;Cosentyx(12/25-11/17/18);Taltz (11/26--04/29) -loss of efficacy, ihoznhdvxj7es daily,Xeljanz XR loss of efficacy documented in [...] arthropathy documented in this encounter Care Teams Filter Tip Inspector Relationship Specialty Start Date End Date Robbie Mohr DO [address] [place] [address] [place] [address] PCP - General Family Medicine 06/27/22 documented as of this encounter
--- OUTSIDE RECORDS SUMMARY | 2023-02-05 23:36 | External Medical Summary | Summary of Care ---
Author Name Unknown Organization [facility] Address [address] [place] [address] Phone [phone] Care Team Providers Care Punch Press Feeder Name Role Phone Robbie Mohr DO Primary Care Provi frank Reason for Visit * Reason Onset Date Comments Precert Approved 09/18/2022 Jose Cruz Encounter Details Date Type Department Care Team Description 09/18/2022 Telephone Rheumatology [facility] [address] [place] [address] Mary Shaw PA-C [address] [place] [address] Precert Approved ( Jose Cruz) Allergies Active Allergy Reactions Severity Noted Date Comments Codeine 09/20/2014 documented as of this encounter (statuses as of 09/28/2022) Medications Medication Sig Dispensed Refills Start Date [...] Tablet 1 daily 0 3 Active Nystatin 908748 UNIT/GM External Powder (Nystop) 0 3 Active Clobetasol Propionate 0.05 % External Cream (Temovate) 0 3 Active Ustekinumab 90 MG/ML Subcutaneous Solution Prefilled Syringe ([employer]) Inject 90 mg subcutaneously at 0 and [...] as of this encounter (statuses as of 09/28/2022) Active Problems Problem Noted Date Body mass [...] as of this encounter (statuses as of 09/28/2022) Immunizations Name Administration Dates Next Due COVID-19 [...] sure why we need [facility]??? Or has something changed? * Telephone Encounter - LIDYA Leone - 09/19/2022 9:54 AM EDT Please route to correct pool for Stelara loading dose [id number] * Telephone Encounter - Cuca Segura LPN - 09/19/2022 9:42 AM EDT Please auth loading and maintenance dose, thx * Telephone Encounter - Mary Shaw PA-C - 09/18/2022 2:28 PM EDT Auth Stenayelira: Prior medications steroids, methotrexate, Enbrel, Remicade (1999- August 2016) discontinued due topersistent transaminitis and diagnosis of MGUS, Otezla-loss of efficacy;Cosentyx(12/25-11/17/18);Taltz (11/26--04/29) -loss of efficacy, dvxvzndglz0oc daily,Xeljanz XR loss of efficacy documented in this encounter Plan of Treatment Health Maintenance Due Date Last Done Comments Yearly B-12 1943 Pneumococcal Vaccine: 65+ Years (1 - PCV) 1949 Depression Screening, Annual for Pts 12 and Over 1955 Albumin/Creatinine Ratio 1961 DIABETES-EYE EXAM 1961 DIABETES-FOOT EXAM 1961 Hepatitis C Screening 1961 DTaP,Tdap,and Td Vaccines (1 - Tdap) 1962 Zoster Vaccines (1 of 2) 1962 COLONOSCOPY-EVERY 5 YRS AGES 18-100 01/04/2014 01/04/2009 HgA1C 05/03/2021 10/31/2020, 03/02/2020 *BASELINE EKG FOR HTN 06/19/2021 Influenza Vaccine (FLU shot) (Season Ended) 2023 GFR - Renal Function 08/28/2023 08/27/2022, 04/16/2022, 11/29/2021, Additional history exists COVID-19 Vaccine Completed 04/24/2022, 03/2021, 08/10/2020, Additional [...] arthropathy documented in this encounter Care Teams Punch Press Feeder Relationship Specialty [place] [address] [place], [place] [address] [phone] PCP - General Family Medicine 06/27/22 documented as of this encounter
--- OUTSIDE RECORDS SUMMARY | 2023-02-05 23:36 | External Medical Summary | Summary of Care ---
Author Name Unknown Organization [facility] [address] [facility] [address] Phone [phone] Care Team Providers Care Laundry Washer Name Role Phone Robbie Mohr DO Primary Care Provi frank Reason for Visit * Reason Onset Date Comments Medication Pre-auth 09/18/2022 Advice 10/12/2022 Financial assist ance program Encounter Details Date Type Department Care Team Description 09/18/2022 Telephone Rheumatology [facility] [address] [place] [address] Mary Shaw PA-C [address] [place] [address] Medication Pre-auth; Advice (Financial ass... Allergies Active Allergy Reactions Severity Noted Date Comments Codeine 09/20/2014 documented as of this encounter (statuses as of 10/12/2022) Medications Medication Sig Dispensed Refills Start Date [...] Tablet 1 daily 0 3 Active Nystatin 440665 UNIT/GM External Powder (Nystop) 0 3 Active [...] as of this encounter (statuses as of 10/12/2022) Active Problems Problem Noted Date Body mass [...] as of this encounter (statuses as of 10/12/2022) Immunizations Name Administration Dates Next Due COVID-19 [...] encounter Miscellaneous Notes * Telephone Encounter - LIDYA Parekh - [...] called and spoke with the rep from [facility] and she said there was an approved claim on 09/20 in error, on the they reversed their decision and denied it,the patient has since initiated an appeal himself, it is now pending review as of 09/26. They denied the claim due to the members weight. Wewill be notified of the decision within 7 days. Mignon White Medication Custom Designer [facility] 09/28/22,2:46 PM * Telephone Encounter - Mary [...] LIDYA Lockett - 09/20/2022 9:59 AM EDT Hi Cuca, I will send the request in, it is the correct pool, that must have been put in error. * Telephone Encounter - Cuca Segura LPN - 09/19/2022 10:01 AM EDT This are self injections that pt will be doing at home, not sure why we need to send to [facility] precertinfusions??? Or has something changed? * Telephone Encounter - LIDYA Leone - 09/19/2022 9:54 AM EDT Please route to correct pool for Stelara loading dose [id number] * Telephone Encounter - Cuca Segura LPN - 09/19/2022 9:42 AM EDT Please auth loading and maintenance dose, thx * Telephone Encounter - Mary Shaw PA-C - 09/18/2022 2:28 PM EDT Auth Stelara: Prior medications steroids, methotrexate, Enbrel, Remicade (1999- August 2016) discontinued due topersistent transaminitis and diagnosis of MGUS, Otezla-loss of efficacy;Cosentyx(12/25-11/17/18);Taltz (11/26--04/29) -loss of efficacy, svpdbhzmyw2xo daily,Xeljanz XR loss of efficacy documented in [...] arthropathy documented in this encounter Care Teams Laundry Washer Relationship Specialty [place] [address] [place] [address] [place] [address] PCP - General Family Medicine 06/27/22 documented as of this encounter
--- OUTSIDE RECORDS SUMMARY | 2023-02-05 23:36 | External Medical Summary | Summary of Care ---
Author Name Unknown Organization [facility] Address [address] [place] [address] Phone [phone] Care Team Providers Care Tailor Helper Name Role Phone Robbie Mohr DO Primary Care Provi frank Reason for Visit * Reason Onset Date Comments Medication Pre-auth 09/18/2022 Encounter Details Date Type Department Care Team Description 09/18/2022 Telephone Rheumatology [facility] [address] [place] [address] Mary Shaw PA-C [address] [place] [address] Medication Pre-auth Allergies Active Allergy Reactions Severity Noted Date Comments Codeine 09/20/2014 documented as of this encounter (statuses as of 10/01/2022) Medications Medication Sig Dispensed Refills Start Date [...] Tablet 1 daily 0 3 Active Nystatin 840005 UNIT/GM External Powder (Nystop) 0 3 Active Clobetasol Propionate 0.05 % External Cream (Temovate) 0 3 Active Ustekinumab 90 MG/ML Subcutaneous Solution Prefilled Syringe ([employer]) Inject 90 mg subcutaneously at 0 and [...] as of this encounter (statuses as of 10/01/2022) Active Problems Problem Noted Date Body mass [...] as of this encounter (statuses as of 10/01/2022) Immunizations Name Administration Dates Next Due COVID-19 [...] encounter Miscellaneous Notes * Telephone Encounter - Mignon P Christopher, LIDYA - 09/28/2022 2:47 PM EDT I called and spoke with the rep from [facility] and she said there was an approved claim on 09/20 in error, on the they reversed their decision and denied it,the patient has since initiated an appeal himself, it is now pending review as of 09/26. They denied the claim due to the members weight. Wewill be notified of the decision within 7 days. Mignon White Medication Hand Sander [facility] 09/28/22,2:46 PM * Telephone [...] sure why we need to send to [facility] precertinfusions??? Or has something changed? * Telephone Encounter - LIDYA Leone - 09/19/2022 9:54 AM EDT Please route to correct pool for Stelara loading dose [id number] * Telephone Encounter - Cuca Segura LPN - 09/19/2022 9:42 AM EDT Please auth loading and maintenance dose, thx * Telephone Encounter - Mary Shaw PA-C - 09/18/2022 2:28 PM EDT Auth Stelara: Prior medications steroids, methotrexate, Enbrel, Remicade (1999- August 2016) discontinued due topersistent transaminitis and diagnosis of MGUS, Otezla-loss of efficacy;Cosentyx(12/25-11/17/18);Taltz (11/26--04/29) -loss of efficacy, tgimksegsb2mt daily,Xeljanz XR loss of efficacy documented in [...] arthropathy documented in this encounter Care Teams Tailor Helper Relationship Specialty Start Date End Date Robbie Mohr DO [address] [place], [place] [address] [address] PCP - General Family Medicine 06/27/22 documented as of this encounter
--- OUTSIDE RECORDS SUMMARY | 2023-02-05 23:36 | External Medical Summary | Summary of Care ---
Author Name Unknown Organization [facility] Address [address] [facility] [address] Phone [phone] Care Team Providers Care Senior Financial Name Role Phone Robbie Mohr DO Primary Care Provi frank Reason for Visit * Reason Onset Date Comments Medication Pre-auth 09/18/2022 Advice 10/12/2022 Financial assist ance program Encounter Details Date Type Department Care Team Description 09/18/2022 Telephone Rheumatology [facility] [address] [place] [address] Mary Shaw PA-C [address] [place] [address] Medication Pre-auth; Advice (Financial ass... Allergies Active Allergy Reactions Severity Noted Date Comments Codeine 09/20/2014 documented as of this encounter (statuses as of 10/15/2022) Medications Medication Sig Dispensed Refills Start Date [...] Tablet 1 daily 0 3 Active Nystatin 513514 UNIT/GM External Powder (Nystop) 0 3 Active [...] as of this encounter (statuses as of 10/15/2022) Active Problems Problem Noted Date Body mass [...] as of this encounter (statuses as of 10/15/2022) Immunizations Name Administration Dates Next Due COVID-19 [...] encounter Miscellaneous Notes * Telephone Encounter - Ave Marin LPN - 10/15/2022 8:52 AM EDT Last note in the referral states a decision will be make within 7 days. Has medication been approved? If so has adrián and adrián been called checking on assistance paying for [...] called and spoke with the rep from [facility] and she said there was an approved claim on 09/20 in error, on the they reversed their decision and denied it,the patient has since initiated an appeal himself, it is now pending review as of 09/26. They denied the claim due to the members weight. Vladll be notified of the decision within 7 days. Mignon White Medication Lacquer Polisher [facility] 09/28/22,2:46 PM * Telephone Encounter - Mary [...] sure why we need to send to [facility] precertinfusions??? Or has something changed? * Telephone Encounter - LIDYA Leone - 09/19/2022 9:54 AM EDT Please route to correct pool for Stelara loading dose [id number] * Telephone Encounter - Cuca Segura LPN - 09/19/2022 9:42 AM EDT Please auth loading and maintenance dose, thx * Telephone Encounter - Mary Shaw PA-C - 09/18/2022 2:28 PM EDT Auth Peyton: Prior medications steroids, methotrexate, Enbrel, Remicade (1999- August 2016) discontinued due topersistent transaminitis and diagnosis of MGUS, Otezla-loss of efficacy;Cosentyx(12/25-11/17/18);Taltz (11/26--04/29) -loss of efficacy, [id number] daily,Xeljanz XR loss of efficacy documented in [...] arthropathy documented in this encounter Care Teams Senior Financial Relationship Specialty Start Date End Date Robbie Mohr DO [address] [place], [place] [address] [phone] PCP - General Family Medicine 06/27/22 documented as of this encounter
--- OUTSIDE RECORDS SUMMARY | 2023-02-05 23:36 | External Medical Summary | Summary of Care ---
Author Name Unknown Organization [facility] Address [address] [place] [address] Phone [phone] Care Team Providers Care Ground Support Agent Name Role Phone Robbie Mohr DO Primary Care Provi frank Reason for Visit * Reason Comments Rheum Follow Up Follow up - left wri st injection Encounter Details Date Type Department Care Team Description 06/27/2022 Office Visit Rheumatology [place] [address] [address] [place] [address] Rajendra Crowley MD [facility] [place] [address] Psoriatic arthritis (HCC)*; Generalized osteoarthritis; High risk medication use; Steroid-induced osteoporosis Allergies Active Allergy Reactions Severity Noted Date [...] 0 04/10/2018 Active traMADol (ULTRAM) 50 MG TabletIndications :Psoriatic arthritis (HCC),Acute pain of both shoulders Take [...] 0 Active predniSONE 5 MG Oral Tablet (Deltasone)Indica tions:Psoriatic arthritis (HCC) TAKE 1 TABLET BY MOUTH DAILY. 90 Tablet 3 03/13/2022 Active Empagliflozin 10 MG Oral Tablet Take by mouth daily. 0 01/11/2022 Active PX Complete Senior Multivits Oral Tablet take 1 tablet by oral route every day 0 Active Alendronate Sodium 70 MG Oral Tablet (Fosamax)Indicati ons:Steroid-induc ed osteoporosis Take 1 Tablet by mouth once a week. 4 Tablet 6 06/27/2022 Active Omeprazole 20 MG Oral Capsule Delayed Release (PriLOSEC) TAKE 1 CAPSULE BY MOUTH DAILY 90 Capsule 3 07/26/2021 08/02/19 23 Discontinued(Ref ill) Lisinopril 20 MG Oral Tablet (Prinivil) 0 12/09/2021 09/19/19 23 Discontinued Xeljanz XR 11 MG Oral Tablet Extended Release 24 Hour (Tofacitinib Citrate ER)Indications:Ps oriatic arthritis (HCC) Take 1 Tablet (11 mg) by mouth in the morning. 30 Tablet 11 05/07/2022 05/07/20 22 Discontinued(Leg acy prescription brought in as discontinued) Hospital, Clinic, or Other Facility Administered Medication Ordered Dose Route Frequency Start Date End Date Status Lidocaine (PF) 2 % (PF) inj 20 mgIndications:Psoriatic arthritis (HCC) 20 mg IX ONCE 06/27/2022 06/27/2022 Ended methylPREDNISolone acetate (Depo-Medrol) 40 MG/ML inj 20 mgIndications:Psoriatic arthritis (HCC) 20 mg IX ONCE 06/27/2022 06/27/2022 Ended methylPREDNISolone acetate (Depo-Medrol) 40 MG/ML inj 40 mgIndications:Psoriatic arthritis (HCC) 40 mg IX ONCE 06/27/2022 06/27/2022 Ended documented as of this encounter (statuses as [...] Date Smoking Tobacco: Never Smokeless Tobacco: Never Tobacco Cessation:Counseling Given: Not Answered Alcohol Use Standard Drinks/Week Comments Yes 0 (1 standard drink = 0.6 oz pur e alcohol) 1-2 drinks/month Sex Assigned at Date Recorded Not on file Job Start Date Occupation Industry Not on file Not on file Not on file documented as of this encounter Last Filed Vital Signs Vital Sign Reading Time Taken Comments Blood Pressure - - Pulse - - Temperature 36.5 C (97.7 F) 06/27/2022 10:[address] Respiratory Rate - - Oxygen Saturation - - Inhaled Oxygen Concentration - - Weight - - Height - - Body Mass Index - - documented in this encounter Progress Notes * Rajendra Crowley MD - 06/27/2022 10:38 AM ESTAssociated Order(s): SARAH Joint Inj/Arthro: R thumb MCP; Joint Inj/Arthro: L ulnocarpal Subjective: Patient seen today for further follow up evaluation of osteoarthritis, psoriatic arthritis. Since the last visit he is a former Dr wilde patient. He is dong pretty well on xeljanz. He called to get injections to the left wrist and maybe right thumb. There is some swelling to the left wrist. He reports the left wrist pain is close to a 10. Affects his sleep. He would like injections today. He is here with his . They report he did have blood work in May for his PCP.. He did get all his COVID vaccines. He does not get the flu vaccine because of reactions. He has minimal psoriasis on hisarms. He also had a recent DEXA and review the results. High risk based on FRAX given steroid use. Musculoskeletal ROS: . Abnormal: joint pain and joint swelling . Pain scale (0-10): 9 Other ROS: . Constitutional: trouble sleeping . Cardiovascular: normal . Respiratory: normal . Gastrointestinal: normal . Genitourinary: normal . Skin: Psoriasis All other ROS reviewed and negative Social History: Social History Tobacco Use Smoking status: Never Smokeless tobacco: Never Substance Use Topics Alcohol use: Yes Comment: 1-2 drinks/month Vaping/E-Cigarette Use Vaping/E-Cigarette Substances Vaping/E-Cigarette Devices Current Outpatient Medications Medication Sig Dispense Refill Cholecalciferol (VITAMIN D) 1000 UNIT Capsule 1 daily amLODIPine (NORVASC) 10 MG Tablet 1 daily metFORMIN (GLUCOPHAGE) 500 MG Tablet 2 tabs daily clobetasol propionate (TEMOVATE) 0.05 % ointment As needed triamcinolone acetonide (ARISTOCORT) 0.1 % cream As directed atorvaSTATin (LIPITOR) 10 MG Tablet 1 daily furosemide (LASIX) 40 MG Tablet 1 tab daily potassium chloride ER 10 MEQ CPCR 1 tab daily glimepiride (AMARYL) 2 MG Tablet 1 Tablet. 1 tab twice daily Metoprolol Succinate ER 200 MG TB24 1 Tablet. 1 tab daily TRADJENTA 5 MG Tablet 1 Tablet. 1 tab daily Gabapentin 300 MG Oral Capsule (Neurontin) 1 Capsule in the morning and 1 Capsule at noon and 1Capsule before bedtime. Omeprazole 20 MG Oral Capsule Delayed Release (PriLOSEC) TAKE 1 CAPSULE BY MOUTH DAILY 90 Capsule 3 metOLazone 2.5 MG Oral Tablet (Zaroxolyn) Take 1 Tablet by mouth in the morning. Magnesium Oxide 400 MG Oral Capsule Take 1 Capsule by mouth in the morning. Lisinopril 20 MG Oral Tablet (Prinivil) predniSONE 5 MG Oral Tablet (Deltasone) TAKE 1 TABLET BY MOUTH DAILY. 90 Tablet 3 Xeljanz XR 11 MG Oral Tablet Extended Release 24 Hour (Tofacitinib Citrate ER) Take 1 Tablet (11 mg) by mouth in the morning. 30 Tablet 11 Empagliflozin 10 MG Oral Tablet (Jardiance) Take by mouth daily. PX Complete Senior Multivits Oral Tablet take 1 tablet by oral route every day traMADol (ULTRAM) 50 MG Tablet Take 2 Tabs by mouth every 6 hours as needed for Pain. (Patient not taking: Reported on 06/27/2022) 240 Tab 3 No current facility-administered medications for this visit. Physical Exam: Temp 36.5 C (97.7 F) (Infrared ) General: alert, healthy and well nourished Neck: supple, no adenopathy, thyroid normal size, non-tender, without nodularity Lymph: no palpable lymphadenopathy Heart: regular rate & rhythm and no gallops Lungs: clear to auscultation , no rales, wheezes or rhonchi Abdomen: abdomen soft, non-tender, obese and normal bowel sounds Skin: skin color, texture, turgor are normal, psoriasis noted on right elbow, smaller patches on both forearms Musculoskeletal Exam: Slight swelling/synovitis to the right thumb MCP with pain Slight synovitis to the left wrist with pain on exam No other sites of synovitis/dactylitis Assessment: (L40.50) Psoriatic arthritis (HCC) (primary encounter diagnosis) (M15.9) Generalized osteoarthritis (Z79.899) High risk medication use (M81.8, 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 Will continue with Xeljanz and prednisone. Also discussed his steroid induced osteoporosis and will start Fosamax. Will get outside lab results. Plan: 1. Will get outside lab results-needs to continue with labs every 3 months 2. Start Fosamax 3. Continue Xeljanz and prednisone 4. See procedure notes below 5. Return to clinic in 6 months Rajendra Crowley MD Department of Rheumatology Sarwat Campbell is a 77 year old male patient. ICD-10-CM 1. Psoriatic arthritis (HCC) L40.50 2. Generalized osteoarthritis M15.9 3. High risk medication use Z79.899 Past Medical History: Diagnosis Date Benign neoplasm of colon 01/04/09 adenomatous polyps, f/u in 5 yr Cholelithiasis CKD (chronic kidney disease) stage 2, GFR 60-89 ml/min Diverticulosis GERD (gastroesophageal reflux disease) Head trauma Headache(784.0) Hiatal hernia High risk medication use remicade since 1999, previously on Enbrel stopped working after 8 months Hyperlipidemia Hypertension Obesity Osteoarthritis Proteinuria Psoriasis Psoriatic arthritis (HCC) 1979 Restrictive lung disease Sinusitis Type 2 diabetes mellitus (HCC) Vitamin D deficiency Temperature 36.5 C (97.7 F), temperature source Infrared . Joint Inj/Arthro: Janneth gorman on 06/27/2022 10:45 AM Indications: pain Details: 25 G needle, anteromedial approach Medications: (40mg of depomedrol and 1 ml of 2% lidocaine) Outcome: tolerated well, no immediate complications Procedure, treatment alternatives, risks and benefits explained, specific risks discussed. Consent was given by the patient. Immediately prior to procedure a time out was called to verify the correctpatient, procedure, equipment, home support worker and site/side marked as required. Patient was prepped and draped in the usual sterile fashion. SM Joint Inj/Arthro: R thumb MCP on 06/27/2022 10:45 AM Indications: pain and joint swelling Details: 25 G needle, medial approach Medications: (20mg of depomedrol) Outcome: tolerated well, no immediate complications Procedure, treatment alternatives, risks and benefits explained, specific risks discussed. Consent was given by the patient. Immediately prior to procedure a time out was called to verify the correctpatient, procedure, equipment, home support worker and site/side marked as required. Patient was prepped and draped in the usual sterile fashion. Rajendra Crowley MD 06/27/2022 documented in this encounter Nursing Notes * Ave Marin LPN - 06/27/2022 10:28 AM EST Chief Complaint Patient presents with Rheum Follow Up Follow up - left wrist injection documented in this encounter Plan of Treatment Scheduled Orders Name Type Priority Associated Diagnoses Orde r Schedule CBC WITH WBC DIFFERENTIAL Lab Routine Psoriatic arthritis (HCC) High risk medication use Every 3 Months for 999 Occurrences starting 06/27/2022 until 06/27/2023 COMPREHENSIVE METABOLIC PANEL Lab Routine Psoriatic arthritis (HCC) High risk medication use Every 3 Months for 999 Occurrences starting 06/27/2022 until 06/27/2023 LIPID PANEL WITH DIRECT LDL IF TG IS HIGH Lab Routine Psoriatic arthritis (HCC) High risk medication use Ordered: 06/27/2022 Health Maintenance Due Date Last Done Comments [...] Procedure Name Priority Date/Time Associated Diagnosis Comments IA ARTHROCENTESIS ASPIR&/INJ SMALL JT/BURSA W/O US Routine 06/27/2022 10:45 AM EST Psoriatic arthritis (HCC) IA ARTHROCENTESIS ASPIR&/INJ INTERM JT/BURS W/O US Routine 06/27/2022 10:45 AM EST Psoriatic arthritis (HCC) documented in this encounter Results * IA ARTHROCENTESIS ASPIR&/INJ SMALL JT/BURSA W/O US (06/27/2022 10:45 AM EST) Narrative Rajendra Crowley MD - 06/27/2022 10:45 AM EST Rajendra Crowley MD 06/27/2022 12:03 PM SM Joint Inj/Arthro: R thumb MCP on 06/27/2022 10:45 AM Indications: pain and joint swelling Details: 25 G needle, medial approach Medications: (20mg of depomedrol) Outcome: tolerated well, no immediate complications Procedure, treatment alternatives, risks and benefits explained, specific risks discussed. Consent was given by the patient. Immediately prior to procedure a time out was called to verify the correct patient, procedure, equipment, home support worker and site/side marked as required. Patient was prepped and draped in the usual sterile fashion. Rajendra Crowley MD PROCDOC FORM * IA ARTHROCENTESIS ASPIR&/INJ INTERM JT/BURS W/O US (06/27/2022 10:45 AM EST) Rajendra Acuña MD - 06/27/2022 10:45 AM EST Rajendra Crowley MD 06/27/2022 12:03 PM Joint Inj/Arthro: L ulnocarpal on 06/27/2022 10:45 AM Indications: pain Details: 25 G needle, anteromedial approach Medications: (40mg of depomedrol and 1 ml of 2% lidocaine) Outcome: tolerated well, no immediate complications Procedure, treatment alternatives, risks and benefits explained, specific risks discussed. Consent was given by the patient. Immediately prior to procedure a time out was called to verify the correct patient, procedure, equipment, home support worker and site/side marked as required. Patient was prepped and draped in the usual sterile fashion. Rajendra Crowley MD PROCDOC FORM documented in this encounter Visit Diagnoses Diagnosis Psoriatic arthritis (HCC)- Primary Psoriatic arthropathy Generalized osteoarthritis Generalized osteoarthrosis, unspecified site High risk medication use Encounter for long-term (current) use of other medications Steroid-induced osteoporosis Other osteoporosis documented in this encounter Administered Medications Inactive Administered Medications - up to 3 most recent administrations Medication Order MAR Action Action Date Dose Rate Site Lidocaine (PF) 2 % (PF) inj 20 mg 20 mg, Intra-Articular, ONCE, On Sat06/27/22 at 1115, For 1 dose Given 06/27/2022 10:44 AM EST 20 mg Wrist Left methylPREDNISolone acetate (Depo-Medrol) 40 MG/ML inj 20 mg 20 mg, Intra-Articular, ONCE, On Sat06/27/22 at 1115, For 1 dose Given 06/27/2022 10:44 AM EST 20 mg Hand Right methylPREDNISolone acetate (Depo-Medrol) 40 MG/ML inj 40 mg 40 mg, Intra-Articular, ONCE, On Sat06/27/22 at 1115, For 1 dose Given 06/27/2022 10:44 AM EST 40 mg Wrist Left documented in this encounter Care Teams Ground Support Agent Relationship Specialty Start Date End Date Robbie Mohr, DO [address] [place] [address] [place] [id number] PCP - General Family Medicine 06/27/22 documented as of this encounter
--- OUTSIDE RECORDS SUMMARY | 2023-02-05 23:36 | External Medical Summary | Summary of Care ---
Author Name Unknown Organization [facility] Address [address] [facility] [address] Phone [phone] Care Team Providers Care Compliance Mgr Name Role Phone Robbie Mohr DO Primary Care Provi frank Reason for Visit * Reason Onset Date Comments Medication Pre-auth 09/18/2022 Advice 10/12/2022 Financial assist ance program Encounter Details Date Type Department Care Team Description 09/18/2022 Telephone Rheumatology [facility] [address] [place] [address] Mary Shaw PA-C [address] [place] [address] Medication Pre-auth; Advice (Financial ass... Allergies Active [...] Tablet 1 daily 0 3 Active Nystatin 056266 UNIT/GM External Powder (Nystop) 0 3 Active [...] called and spoke with the rep from [facility] and she said there was an approved claim on 09/20 in error, on the they reversed their decision and denied it,the patient has since initiated an appeal himself, it is now pending review as of 09/26. They denied the claim due to the members weight. Wewill be notified of the decision within 7 days. Mignon White Medication Special Education Instructor [facility] 09/28/22,2:46 PM * Telephone [...] to correct pool for Stelara loading dose [id number] * Telephone Encounter - Cuca Segura LPN - 09/19/2022 9:42 AM EDT Please auth loading and maintenance dose, thx * Telephone Encounter - Mary Shaw PA-C - 09/18/2022 2:28 PM EDT Auth Stelara: Prior medications steroids, methotrexate, Enbrel, Remicade (1999- August 2016) discontinued due topersistent transaminitis and diagnosis of MGUS, Otezla-loss of efficacy;Cosentyx(12/25-11/17/18);Taltz (11/26--04/29) -loss of efficacy, [id number] daily,Xeljanz XR loss of efficacy documented in [...] arthropathy documented in this encounter Care Teams Compliance Mgr Relationship Specialty Start Date End Date Robbie Mohr DO [address] [place] [address] [place] [id number] PCP - General Family Medicine 06/27/22 documented as of this encounter
--- OUTSIDE RECORDS SUMMARY | 2023-02-05 23:36 | External Medical Summary | Summary of Care ---
Author Name Unknown Organization [facility] Address [address] [facility] [address] Phone [phone] Care Team Providers Care Barrel Lathe Operator Inside Name Role Phone Robbie Mohr DO Primary Care Provi frank Reason for Visit * Reason Onset Date Comments Medication Pre-auth 09/18/2022 Advice 10/12/2022 Financial assist ance program Encounter Details Date Type Department Care Team Description 09/18/2022 Telephone Rheumatology [facility] [address] [place] [address] Mary Shaw PA-C [address] [place] [address] Medication Pre-auth; Advice (Financial ass... Allergies Active [...] Tablet 1 daily 0 3 Active Nystatin 505635 UNIT/GM External Powder (Nystop) 0 3 Active [...] called and spoke with the rep from [facility] and she said there was an approved claim on 09/20 in error, on the they reversed their decision and denied it,the patient has since initiated an appeal himself, it is now pending review as of 09/26. They denied the claim due to the members weight. Wewill be notified of the decision within 7 days. Mignon White Medication Software Development Test Engineer [facility] 09/28/22,2:46 PM * Telephone Encounter - Mary [...] sure why we need to send to [facility] precertinfusions??? Or has something changed? * Telephone Encounter - LIDYA Leone - 09/19/2022 9:54 AM EDT Please route to correct pool for Stelara loading dose [id number] * Telephone Encounter - Cuca Segura LPN - 09/19/2022 9:42 AM EDT Please auth loading and maintenance dose, thx * Telephone Encounter - Mary Shaw PA-C - 09/18/2022 2:28 PM EDT Auth Stelara: Prior medications steroids, methotrexate, Enbrel, Remicade (1999- August 2016) discontinued due topersistent transaminitis and diagnosis of MGUS, Otezla-loss of efficacy;Cosentyx(12/25-11/17/18);Taltz (11/26--04/29) -loss of efficacy, [id number] daily,Xeljanz XR loss of efficacy documented in [...] documented in this encounter Care Teams Barrel Lathe Operator Inside Relationship Specialty [place] [address] [place] [address] [place] [id number] PCP - General Family Medicine 06/27/22 documented as of this encounter
--- OUTSIDE RECORDS SUMMARY | 2023-02-05 23:36 | External Medical Summary | Summary of Care ---
Author Name Unknown Organization [facility] Address [address] [facility] [address] Phone [phone] Care Team Providers Care Packaging Designer Name Role Phone Robbie Mohr DO Primary Care Provi frank Reason for Visit * Reason Onset Date Comments Medication Pre-auth 09/18/2022 Advice 10/12/2022 Financial assist ance program Encounter Details Date Type Department Care Team Description 09/18/2022 Telephone Rheumatology [facility] [address] [place] [address] Mary Shaw PA-C [address] [place] [address] Medication Pre-auth; Advice (Financial ass... Allergies Active [...] Tablet 1 daily 0 3 Active Nystatin 004896 UNIT/GM External Powder (Nystop) 0 3 Active [...] called and spoke with the rep from [facility] and she said there was an approved claim on 09/20 in error, on the they reversed their decision and denied it,the patient has since initiated an appeal himself, it is now pending review as of 09/26. They denied the claim due to the members weight. Wewill be notified of the decision within 7 days. Mignon White Medication Operations Superintendent [facility] 09/28/22,2:46 PM * Telephone [...] sure why we need to send to [facility] precertinfusions??? Or has something changed? * Telephone Encounter - LIDYA Leone - 09/19/2022 9:54 AM EDT Please route to correct pool for Stelara loading dose [id number] * Telephone Encounter - Cuca Segura LPN - 09/19/2022 9:42 AM EDT Please auth loading and maintenance dose, thx * Telephone Encounter - Mary Shaw PA-C - 09/18/2022 2:28 PM EDT Auth Stelara: Prior medications steroids, methotrexate, Enbrel, Remicade (1999- August 2016) discontinued due topersistent transaminitis and diagnosis of MGUS, Otezla-loss of efficacy;Cosentyx(12/25-11/17/18);Taltz (11/26--04/29) -loss of efficacy, [id number] daily,Xeljanz XR loss of efficacy documented in [...] arthropathy documented in this encounter Care Teams Packaging Designer Relationship Specialty Start Date End Date Robbie Mohr DO [address] [place], [place] [address] [address] PCP - General Family Medicine 06/27/22 documented as of this encounter
--- OUTSIDE RECORDS SUMMARY | 2023-02-05 23:36 | External Medical Summary | Summary of Care ---
Author Name Unknown Organization [facility] Address [address] [facility] [place] [address] Phone [phone] Care Team Providers Care Japanese Professor Name Role Phone Robbie Mohr DO Primary Care Provi frank Reason for Visit * Reason Onset Date Comments Medication Pre-auth 09/18/2022 Encounter Details Date Type Department Care Team Description 09/18/[address] [facility] [address] [place] [address] Mary Shaw PA-C [address] [place] [address] Medication Pre-auth Allergies Active Allergy Reactions Severity [...] Tablet 1 daily 0 3 Active Nystatin 577756 UNIT/GM External Powder (Nystop) 0 3 Active Clobetasol Propionate 0.05 % External Cream (Temovate) 0 3 Active Ustekinumab 90 MG/ML Subcutaneous Solution Prefilled Syringe (Slicebookslera) Inject 90 mg subcutaneously at 0 and [...] Miscellaneous Notes * Telephone Encounter - LIDYA Johansen - 10/12/2022 12:56 PM EDT called checking on medication. Thank you * Telephone Encounter - LIDYA Lockett - 09/28/2022 2:47 PM EDT I called and spoke with the rep from [facility] and she said there was an approved claim on 09/20 in error, on the they reversed their decision and denied it,the patient has since initiated an appeal himself, it is now pending review as of 09/26. They denied the claim due to the members weight. Wewill be notified of the decision within 7 days. Mignon White Medication Singeing Torch Operator [facility] 09/28/22,2:46 PM * Telephone [...] sure why we need [facility] Or has something changed? * Telephone Encounter - LIDYA Leone - 09/19/2022 9:54 AM EDT Please route to correct pool for Stelara loading dose [id number] * Telephone Encounter - Cuca Segura LPN - 09/19/2022 9:42 AM EDT Please auth loading and maintenance dose, thx * Telephone Encounter - Mary Shaw PA-C - 09/18/2022 2:28 PM EDT Auth Stelara: Prior medications steroids, methotrexate, Enbrel, Remicade (1999- August 2016) discontinued due topersistent transaminitis and diagnosis of MGUS, Otezla-loss of efficacy;Cosentyx(12/25-11/17/18);Taltz (11/26--04/29) -loss of efficacy, [id number] daily,Xeljanz XR loss of efficacy documented in [...] arthropathy documented in this encounter Care Teams Japanese Professor Relationship Specialty Start Date End Date Robbie Mohr DO [address] [place] [address] [place] [address] PCP - General Family Medicine 06/27/22 documented as of this encounter
--- OUTSIDE RECORDS SUMMARY | 2023-02-05 23:36 | External Medical Summary | Summary of Care ---
Author Name Unknown Organization [facility] Address [address] [facility] [address] Phone [phone] Care Team Providers Care Chemist Inorganic Name Role Phone Robbie Mohr DO Primary Care Provi frank Reason for Visit * Reason Onset Date Comments Medication Pre-auth 09/18/2022 Advice 10/12/2022 Financial assist ance program Encounter Details Date Type Department Care Team Description 09/18/2022 Telephone Rheumatology [facility] [address] [place] [address] Mary Shaw PA-C [address] [place] [address] Medication Pre-auth; Advice (Financial ass... Allergies Active [...] Tablet 1 daily 0 3 Active Nystatin 509836 UNIT/GM External Powder (Nystop) 0 3 Active [...] called and spoke with the rep from [facility] and she said there was an approved claim on 09/20 in error, on the they reversed their decision and denied it,the patient has since initiated an appeal himself, it is now pending review as of 09/26. They denied the claim due to the members weight. Wewill be notified of the decision within 7 days. Mignon White Medication Extra Gang Supervisor [facility] 09/28/22,2:46 PM * Telephone [...] to correct pool for Stelara loading dose [id number] * Telephone Encounter - Cuca Segura LPN - 09/19/2022 9:42 AM EDT Please auth loading and maintenance dose, thx * Telephone Encounter - Mary Shaw PA-C - 09/18/2022 2:28 PM EDT Auth Stelara: Prior medications steroids, methotrexate, Enbrel, Remicade (1999- August 2016) discontinued due topersistent transaminitis and diagnosis of MGUS, Otezla-loss of efficacy;Cosentyx(12/25-11/17/18);Taltz (11/26--04/29) -loss of efficacy, [id number] daily,Xeljanz XR loss of efficacy documented in [...] arthropathy documented in this encounter Care Teams Chemist Inorganic Relationship Specialty Start Date End Date Robbie Mohr DO [address] [place] [address] [place] [address] PCP - General Family Medicine 06/27/22 documented as of this encounter
--- OUTSIDE RECORDS SUMMARY | 2023-02-05 23:36 | External Medical Summary | Summary of Care ---
Author Name Unknown Organization [facility] Address [address] [facility] [address] Phone [phone] Care Team Providers Care Brass Pickler Name Role Phone Robbie Mohr DO Primary Care Provi frank Reason for Visit * Reason Onset Date Comments Medication Pre-auth 09/18/2022 Advice 10/12/2022 Financial assist ance program Encounter Details Date Type Department Care Team Description 09/18/2022 Telephone Rheumatology [facility] [address] [place] [address] Mary Shaw PA-C [address] [place] [address] Medication Pre-auth; Advice (Financial ass... Allergies Active [...] Tablet 1 daily 0 3 Active Nystatin 532521 UNIT/GM External Powder (Nystop) 0 3 Active [...] called and spoke with the rep from [facility] and she said there was an approved claim on 09/20 in error, on the they reversed their decision and denied it,the patient has since initiated an appeal himself, it is now pending review as of 09/26. They denied the claim due to the members weight. Vladll be notified of the decision within 7 days. Mignon White Medication Laborer Pole Crew [facility] 09/28/22,2:46 PM * Telephone Encounter - Mary [...] sure why we need to send to [facility]ert[facility]??? Or has something changed? * Telephone Encounter - LIDYA Leone - 09/19/2022 9:54 AM EDT Please route to correct pool for Stelara loading dose [id number] * Telephone Encounter - Cuca Segura LPN - 09/19/2022 9:42 AM EDT Please auth loading and maintenance dose, thx * Telephone Encounter - Mary Shaw PA-C - 09/18/2022 2:28 PM EDT Auth Peyton: Prior medications steroids, methotrexate, Enbrel, Remicade (1999- August 2016) discontinued due topersistent transaminitis and diagnosis of MGUS, Otezla-loss of efficacy;Cosentyx(12/25-11/17/18);Taltz (11/26--04/29) -loss of efficacy, [id number] daily,Xeljanz XR loss of efficacy documented in [...] arthropathy documented in this encounter Care Teams Brass Pickler Relationship Specialty Start Date End Date Robbie Mohr DO [address] [place], [place] [address] [id number] PCP - General Family Medicine 06/27/22 documented as of this encounter
--- OUTSIDE RECORDS SUMMARY | 2023-02-05 23:36 | External Medical Summary | Summary of Care ---
Author Name Unknown Organization [facility] Address [address] [place] [address] Phone [phone] Care Team Providers Care Forming Mill Operator Name Role Phone Robbie Mohr DO Primary Care Provi frank Reason for Visit * Reason Onset Date Comments Precert Approved 09/18/2022 Jose Cruz Encounter Details Date Type Department Care Team Description 09/18/2022 Telephone Rheumatology [facility] [address] [place] [address] Mary Shaw PA-C [address] [place] [address] Precert Approved ( Jose Curz) Allergies Active Allergy Reactions Severity Noted Date [...] Tablet 1 daily 0 3 Active Nystatin 983360 UNIT/GM External Powder (Nystop) 0 3 Active Clobetasol Propionate 0.05 % External Cream (Temovate) 0 3 Active Ustekinumab 90 MG/ML Subcutaneous Solution Prefilled Syringe ([employer]) Inject 90 mg subcutaneously at 0 and [...] Miscellaneous Notes * Telephone Encounter - LIDYA Lockett - 09/28/2022 2:47 PM EDT I called and spoke with the rep from [facility] and she said there was an approved claim on 09/20 in error, on the they reversed their decision and denied it,the patient has since initiated an appeal himself, it is now pending review as of 09/26. They denied the claim due to the members weight. Wewill be notified of the decision within 7 days. Mignon White Medication Ballast Cleaning Operator [facility] 09/28/22,2:46 PM * [...] we need to send to [facility] precertinfusions??? Or has something changed? * Telephone Encounter - LIDYA Leone - 09/19/2022 9:54 AM EDT Please route to correct pool for Stelara loading dose [id number] * Telephone Encounter - Cuca Segura LPN - 09/19/2022 9:42 AM EDT Please auth loading and maintenance dose, thx * Telephone Encounter - Mary Shaw PA-C - 09/18/2022 2:28 PM EDT Auth Stelara: Prior medications steroids, methotrexate, Enbrel, Remicade (1999- August 2016) discontinued due topersistent transaminitis and diagnosis of MGUS, Otezla-loss of efficacy;Cosentyx(12/25-11/17/18);Taltz (11/26--04/29) -loss of efficacy, [id number] daily,Xeljanz XR loss of efficacy documented in [...] arthropathy documented in this encounter Care Teams Forming Mill Operator Relationship Specialty Start Date End Date Robbie Mohr DO [address] [place], [place] [address] [address] PCP - General Family Medicine 06/27/22 documented as of this encounter
--- OUTSIDE RECORDS SUMMARY | 2023-02-05 23:36 | External Medical Summary | Summary of Care ---
Author Name Unknown Organization [facility] Address [address] [facility] [address] Phone [phone] Care Team Providers Care Confidential Investigator Name Role Phone Robbie Mohr DO Primary Care Provi frank Reason for Visit * Reason Onset Date Comments Medication Pre-auth 09/18/2022 Advice 10/12/2022 Financial assist ance program Encounter Details Date Type Department Care Team Description 09/18/2022 Telephone Rheumatology [facility] [address] [place] [address] Mary Shaw PA-C [address] [place] [address] Medication Pre-auth; Advice (Financial ass... Allergies Active [...] Tablet 1 daily 0 3 Active Nystatin 188542 UNIT/GM External Powder (Nystop) 0 3 Active [...] advise, thank you. * Telephone Encounter - Alexandr Son, LIDYA - 10/12/2022 12:56 PM EDT called checking on medication. Thank you * Telephone Encounter - Mignon White, LIDYA - 09/28/2022 2:47 PM EDT I called and spoke with the rep from [employer] and she said there was an approved claim on 09/20 in error, on the they reversed their decision and denied it,the patient has since initiated an appeal himself, it is now pending review as of 09/26. They denied the claim due to the members weight. Werosa mariall be notified of the decision within 7 days. Mignon White Medication Installation Technician [facility] 09/28/22,2:46 PM * Telephone [...] sure why we need to send to [facility] precertinfusions??? Or has something changed? * Telephone Encounter - LIDYA Leone - 09/19/2022 9:54 AM EDT Please route to correct pool for Stelara loading dose [id number] * Telephone Encounter - Cuca Segura LPN - 09/19/2022 9:42 AM EDT Please auth loading and maintenance dose, thx * Telephone Encounter - Mary Shaw PA-C - 09/18/2022 2:28 PM EDT Auth Stelara: Prior medications steroids, methotrexate, Enbrel, Remicade (1999- August 2016) discontinued due topersistent transaminitis and diagnosis of MGUS, Otezla-loss of efficacy;Cosentyx(12/25-11/17/18);Taltz (11/26--04/29) -loss of efficacy, [id number] daily,Xeljanz XR loss of efficacy documented in [...] arthropathy documented in this encounter Care Teams Confidential Investigator Relationship Specialty Start Date End Date Robbie Mohr DO [address] [place], [place] [address] [address] PCP - General Family Medicine 06/27/22 documented as of this encounter
[2023-02-05] MEDS: CEFEPIME 1,000 MG in SYRINGE 0 ML IV SCH (23:37)
--- OUTSIDE RECORDS SUMMARY | 2023-02-05 23:37 | External Medical Summary | Summary of Care ---
Author Name Unknown Organization [place] [address] Care Team Providers Care Clinical Documentation Clerk Name Role Phone Nimo Stewart MD Primary Care Provider [phone] Reason for Visit * Reason Comments Medication Management Medication Refill Encounter Details Date Type Department Care Team Description 05/09/2022 Pharmacy [facility], [address] [place] [address] Medication, [place] [facility], [address] [address] Encounter for medication refill* Allergies Active Allergy Reactions Severity Noted Date Comments Codeine 09/20/2014 documented as of this encounter (statuses as of 05/09/2022) Medications Medication Sig Dispensed Refills Start Date [...] 0 04/10/2018 Active traMADol (ULTRAM) 50 MG TabletIndications:Ps oriatic arthritis (HCC),Acute pain of both shoulders Take 2 Tabs by mouth every 6 hours as needed for Pain. 240 Tab 3 05/05/2018 Active glimepiride (AMARYL) 2 MG Tablet 2 mg. 1 tab twice daily 0 05/29/2018 Active Metoprolol Succinate ER 200 MG TB24 200 mg. 1 tab daily 0 10/13/2019 Active TRADJENTA 5 MG Tablet 5 mg. 1 tab daily 0 12/02/2019 Active Gabapentin 300 MG Oral Capsule (Neurontin) 0 03/13/2021 Active Omeprazole 20 MG Oral Capsule Delayed Release (PriLOSEC) TAKE 1 CAPSULE BY MOUTH DAILY 90 Capsule 3 07/26/2021 Active metOLazone 2.5 MG Oral Tablet (Zaroxolyn) Take by mouth 2.5 mg in the morning. 0 Active Magnesium Oxide 400 MG Oral Capsule Take by mouth 400 mg in the morning. 0 Active Lisinopril 20 MG Oral Tablet (Prinivil) 0 12/09/2021 Active predniSONE 5 MG Oral Tablet (Deltasone)Indicatio ns:Psoriatic arthritis (HCC) TAKE 1 TABLET BY MOUTH DAILY. 90 Tablet 3 03/13/2022 Active Xeljanz XR 11 MG Oral Tablet Extended Release 24 Hour (Tofacitinib Citrate ER)Indications:Psori atic arthritis (HCC) Take 1 Tablet (11 mg) by mouth in the morning. 30 Tablet 11 05/07/2022 Active documented as of this encounter (statuses as of 05/09/2022) Active Problems Problem Noted Date Body mass [...] as of this encounter (statuses as of 05/09/2022) Immunizations Name Administration Dates Next Due COVID-19 [...] on file documented as of this encounter Progress Notes * Jay Kenny RPh - 05/09/2022 9:29 AM EST Spoke to pt's Katherine regarding new Xeljanz RX received by [facility]. She stated that the [facility] because they receive assistance through the associate brand manager. She will call us back if the RX is needed from [facility]. Will profile RX until needed. Jay Kenny, Pharm D Specialty Clinical Pharmacist [facility] 05/09/2022,9:39 AM documented in this encounter Plan of Treatment Upcoming Encounters Date Type Specialty Care Team Description 05/29/2022 Imaging Radiology 07/26/2022 Office Visit Rheumatology Mary Shaw PA-C [facility] [place] [address] Health Maintenance Due Date Last Done Comments Hepatitis B (1 of 3 - 3-dose series) 1945 Yearly B-12 1945 Pneumococcal Vaccine: 65+ Years (1 - PCV) 1949 Depression Screening, Annual for Pts 12 and Over 1955 Alb / Creat Ratio 1961 DIABETES-EYE EXAM 1961 DIABETES-FOOT EXAM 1961 Hepatitis C Screening 1961 DTaP,Tdap,and Td Vaccines (1 - Tdap) 1962 Zoster Vaccines (1 of 2) 1962 COLONOSCOPY-EVERY 5 YRS AGES 18-100 01/04/2014 01/04/2009 DIABETES-HGBA1C EVERY 6 MONTHS 05/03/2021 10/31/2020, 03/02/2020 COVID-19 Vaccine (4 - Booster for Moderna series) 06/14/2021 04/19/2021, 08/10/2020, 07/13/2020 *BASELINE EKG FOR HTN 06/19/2021 Influenza Vaccine (FLU shot) (#1) 2022 GFR - Renal Function 11/29/2022 11/29/2021, 10/31/2020, 03/02/2020, Additional history exists GARDASIL-HPV IMMUNIZATION SERIES Aged Out No longer eligible based on patient's age to complete this topic MENINGOCOCCAL (MENACTRA/MENVEO) Aged Out No longer eligible based on patient's age to complete this topic documented as of this encounter Medical Devices Not on filedocumented as of this encounter Visit Diagnoses Diagnosis Encounter for medication refill- Primary Issue of repeat prescriptions documented in this encounter Care Teams Clinical Documentation Clerk Relationship Specialty Start Date End Date Nimo Stewart MD [address] [facility] [place] [id number] PCP - General Family Medicine 08/29/17 documented as of this encounter
--- OUTSIDE RECORDS SUMMARY | 2023-02-05 23:37 | External Medical Summary | Summary of Care ---
Author Name Unknown Organization [place] [address] Care Team Providers Care Fisheries Technician Name Role Phone Nimo Stewart MD Primary Care Provider [phone] Reason for Visit * Reason Onset Date Comments Med Request 04/23/2022 Xeljanz XR 11 MG Oral Tablet Extended Release 24 Hour (Tofacitinib Citrate ER) Encounter Details Date Type Department Care Team Description 04/23/2022 Telephone Rheumatology [facility] [address] [place] [address] Mary Shaw PA-C [address] [place] [address] Med Request (Xeljanz XR 11 MG Oral Tablet ... Allergies Active Allergy Reactions Severity Noted Date Comments Codeine 09/20/2014 documented as of this encounter (statuses as of 05/14/2022) Medications Medication Sig Dispensed Refills Start Date [...] 12/09/2021 Active predniSONE 5 MG Oral Tablet (Deltasone)Indica tions:Psoriatic arthritis (HCC) TAKE 1 TABLET BY MOUTH DAILY. 90 Tablet 3 03/13/2022 Active Xeljanz XR 11 MG Oral Tablet Extended Release 24 Hour (Tofacitinib Citrate ER)Indications:Ps oriatic arthritis (HCC) Take 1 Tablet (11 mg) by mouth in the morning. 30 Tablet 11 05/07/2022 Active Xeljanz XR 11 MG Oral Tablet Extended Release 24 Hour (Tofacitinib Citrate ER)Indications:Ps oriatic arthritis (HCC) Take 1 Tab by mouth daily. 30 Tab 5 04/25/2020 04/24/2022 Discontinued (Refill) documented as of this encounter (statuses as of 05/14/2022) Active Problems Problem Noted Date Body mass [...] as of this encounter (statuses as of 05/14/2022) Immunizations Name Administration Dates Next Due COVID-19 [...] Miscellaneous Notes * Telephone Encounter - LIDYA Aguirre - 05/14/2022 1:58 PM EST Yes he will need to be re-enrolled for the new year. Is this already in process or do you need the [facility] to send him paperwork? [employer] English Teacher, [facility] 05/14/2022,1:58 PM * Telephone Encounter - Ave Marin LPN - 05/08/2022 8:22 AM EST Form faxed * Telephone Encounter - Mary Shaw PA-C - 05/07/2022 3:25 PM EST Completed. Given back to nursing. * Telephone Encounter - Ave Marin LPN - 05/07/2022 2:59 PM EST Spoke to pt's and she stated that she has the paperwork to get blood work done and will take to [facility] to get it done before his appt in Jul. Pt's also stated that they are waiting for Rx for Xeljanz to be sent to [facility]. Spoke to [facility] and they stated that they need the Form completed from the Physician. Printed the form and gave it to Mary at to complete. * Telephone Encounter - Mary Shaw PA-C - 05/07/2022 1:58 PM EST Sent. Please see if patient had recent labs through his PCP. * Telephone Encounter - Cuca Segura LPN - 05/07/2022 11:54 AM EST Will send to [facility], if he needs assistance they will help him reapply * Telephone Encounter - Cuca Segura LPN - 04/24/2022 2:15 PM EST Does he need to be reapproved thru [employer]/ [employer]? * Telephone Encounter - LIDYA [place] - 04/23/2022 3:13 PM EST Patient requesting medication refill: Prescibing Provider: Mary Shaw Medication: Xeljanz XR 11 MG Oral Tablet Extended Release 24 Hour (Tofacitinib Citrate ER) Pharmacy: [facility] - this is the organization that it comes through. Ph. Option [address] Dr Steiner had ordered this for a year at a time - they can get a little reimbursement and this really helps him financially. Please inform pt when this has been sent or called in for him. Any question call pt, please on cell phone. Thank-you, Fiona documented in this encounter Plan of Treatment Upcoming Encounters Date Type Specialty Care Team Description 05/29/2022 Imaging Radiology 07/26/2022 Office Visit Rheumatology Mary Shaw PA-C [address] [facility] [place] [address] Health Maintenance Due Date Last Done Comments [...] as of this encounter Visit Diagnoses Diagnosis Psoriatic arthritis (HCC) Psoriatic arthropathy documented in this encounter Care Teams Fisheries Technician Relationship Specialty Start Date End Date Nimo Stewart MD [address] [place], [place] [address] [address] PCP - General Family Medicine 08/29/17 documented as of this encounter
--- OUTSIDE RECORDS SUMMARY | 2023-02-05 23:37 | External Medical Summary | Summary of Care ---
Author Name Unknown Organization [facility] Address [facility] [place] [address] Care Team Providers Care Trench Trimmer Fine Name Role Phone Robbie Mohr DO Primary Care Provi frank Reason for Visit * Reason Comments Rheum Follow Up Follow up - left wri st injection Encounter Details Date Type Department Care Team Description 06/27/2022 Office Visit Rheumatology [address] [place] [address] Rajendra Crowley MD [address] [place] [address] [place] [address] Psoriatic arthritis (HCC)*; Generalized osteoarthritis; High risk medication use; Steroid-induced osteoporosis Allergies Active Allergy Reactions Severity Noted Date Comments Codeine 09/20/2014 documented as of this encounter (statuses as of 06/27/2022) Medications Medication Sig Dispensed Refills Start Date [...] 0 04/10/2018 Active traMADol (ULTRAM) 50 MG TabletIndications:P soriatic arthritis (HCC),Acute pain of both shoulders Take 2 Tabs by mouth every 6 hours as needed for Pain. 240 Tab 3 05/05/2018 Active Additional Information Patient not taking.Reported on 06/27/2022 glimepiride (AMARYL) 2 MG Tablet 1 Tablet. [...] 1 Capsule before bedtime. 0 03/13/2021 Active Omeprazole 20 MG Oral Capsule Delayed Release (PriLOSEC) TAKE 1 CAPSULE BY MOUTH DAILY 90 Capsule 3 07/26/2021 Active metOLazone 2.5 MG Oral Tablet (Zaroxolyn) Take 1 Tablet by mouth in the morning. 0 Active Magnesium Oxide 400 MG Oral Capsule Take 1 Capsule by mouth in the morning. 0 Active Lisinopril 20 MG Oral Tablet (Prinivil) 0 12/09/2021 Active predniSONE 5 MG Oral Tablet (Deltasone)Indicati ons:Psoriatic arthritis (HCC) TAKE 1 TABLET BY MOUTH DAILY. 90 Tablet 3 03/13/2022 Active Xeljanz XR 11 MG Oral Tablet Extended Release 24 Hour (Tofacitinib Citrate ER)Indications:Psor iatic arthritis (HCC) Take 1 Tablet (11 mg) by mouth in the morning. 30 Tablet 11 05/07/2022 Active Empagliflozin 10 MG Oral Tablet (Jardiance) Take by mouth daily. 0 01/11/2022 Active PX Complete Senior Multivits Oral Tablet take 1 tablet by oral route every day 0 Active Alendronate Sodium 70 MG Oral Tablet (Fosamax)Indication s:Steroid-induced osteoporosis Take 1 Tablet by mouth once a week. 4 Tablet 6 06/27/2022 Active Hospital, Clinic, or Other Facility Administered Medication [...] as of this encounter (statuses as of 06/27/2022) Active Problems Problem Noted Date Body mass [...] as of this encounter (statuses as of 06/27/2022) Immunizations Name Administration Dates Next Due COVID-19 [...] called to verify the correctpatient, procedure, equipment, child support officer and site/side marked as required. Patient was [...] called to verify the correctpatient, procedure, equipment, child support officer and site/side marked as required. Patient was prepped and draped in the usual sterile fashion. Rajendra Crowley MD 06/27/2022 documented in this encounter Nursing Notes * Ave Marin LPN - 06/27/2022 10:28 AM EST Chief Complaint Patient presents with Rheum Follow Up Follow up - left wrist injection documented in this encounter Plan of Treatment Upcoming Encounters Date Type Specialty Care Team Description 01/02/2023 Office Visit Rheumatology Mary Shaw PA-C [address] [place] [address] Scheduled Orders Name Type Priority Associated Diagnoses [...] 11/29/2022 11/29/2021, 10/31/2020, 03/02/2020, Additional history exists COVID-19 Vaccine Completed 04/24/2022, [...] Procedure Name Priority Date/Time Associated Diagnosis Comments WI ARTHROCENTESIS ASPIR&/INJ SMALL JT/BURSA W/O US Routine 06/27/2022 10:45 AM EST Psoriatic arthritis (HCC) WI ARTHROCENTESIS ASPIR&/INJ INTERM JT/BURS W/O US Routine 06/27/2022 10:45 AM EST Psoriatic arthritis (HCC) documented in this encounter Results * WI ARTHROCENTESIS ASPIR&/INJ SMALL JT/BURSA W/O US (06/27/2022 [...] to verify the correct patient, procedure, equipment, child support officer and site/side marked as required. Patient was prepped and draped in the usual sterile fashion. Rajendra Crowley MD PROCDOC FORM * WI ARTHROCENTESIS ASPIR&/INJ INTERM JT/BURS W/O US (06/27/2022 [...] to verify the correct patient, procedure, equipment, child support officer and site/side marked as required. Patient was [...] Left documented in this encounter Care Teams Trench Trimmer Fine Relationship Specialty Start Date End Date Robbie Mohr DO [address] [place], [place] [address] [phone] PCP - General Family Medicine 06/27/22 documented as of this encounter
--- OUTSIDE RECORDS SUMMARY | 2023-02-05 23:37 | External Medical Summary | Summary of Care ---
Author Name Unknown Organization [facility] Address [address] [place] [address] Phone [phone] Care Team Providers Care Entry Level Installation Technician Name Role Phone Robbie Mohr DO Primary Care Provi frank Reason for Visit * Reason Onset Date Comments Precert Approved 09/18/2022 Jose Cruz Encounter Details Date Type Department Care Team Description 09/18/2022 Telephone Rheumatology [facility] [address] [place] [address] Mary Shaw PA-C [address] [place] [address] Precert Approved ( Jose Cruz) Allergies Active [...] Tablet 1 daily 0 3 Active Nystatin 098887 UNIT/GM External Powder (Nystop) 0 3 Active Clobetasol Propionate 0.05 % External Cream (Temovate) 0 3 Active Ustekinumab 90 MG/ML Subcutaneous Solution Prefilled Syringe (FavbuylerMetaChannels) Inject 90 mg subcutaneously at 0 and [...] sure why we need to [facility]??? Or has something changed? * Telephone Encounter - LIDYA Leone - 09/19/2022 9:54 AM EDT Please route to correct pool for Stelara loading dose [id number] * Telephone Encounter - Cuca Segura LPN - 09/19/2022 9:42 AM EDT Please auth loading and maintenance dose, thx * Telephone Encounter - Mary Shaw PA-C - 09/18/2022 2:28 PM EDT Auth Stenayelira: Prior medications steroids, methotrexate, Enbrel, Remicade (1999- August 2016) discontinued due topersistent transaminitis and diagnosis of MGUS, Otezla-loss of efficacy;Cosentyx(12/25-11/17/18);Taltz (11/26--04/29) -loss of efficacy, [id number] daily,Xeljanz XR loss of efficacy documented in [...] arthropathy documented in this encounter Care Teams Entry Level Installation Technician Relationship Specialty [place] [address] [place], [place] [address] [phone] PCP - General Family Medicine 06/27/22 documented as of this encounter
--- OUTSIDE RECORDS SUMMARY | 2023-02-05 23:37 | External Medical Summary | Summary of Care ---
Author Name Unknown Organization [place] [address] Care Team Providers Care Hand Molder Meat Name Role Phone Robbie Mohr Primary Care Provi frank Encounter Details Date Type Department Care Team Description 06/25/2022 Result Scan Unspecified Department <No scans attached> Allergies Active Allergy Reactions Severity Noted Date Comments Codeine 09/20/2014 documented as of this encounter (statuses as of 07/12/2022) Medications Medication Sig Dispensed Refills Start Date [...] 12/09/2021 Active predniSONE 5 MG Oral Tablet (Deltasone)Indicat ions:Psoriatic arthritis (HCC) TAKE 1 TABLET BY MOUTH DAILY. 90 Tablet 3 03/13/2022 Active Xeljanz XR 11 MG Oral Tablet Extended Release 24 Hour (Tofacitinib Citrate ER)Indications:Pso riatic arthritis (HCC) Take 1 Tablet (11 mg) by mouth in the morning. 30 Tablet 11 05/07/2022 Active documented as of this encounter (statuses as of 07/12/2022) Active Problems Problem Noted Date Body mass [...] as of this encounter (statuses as of 07/12/2022) Immunizations Name Administration Dates Next Due COVID-19 [...] as of this encounter Plan of Treatment Upcoming Encounters Date Type Specialty Care Team Description 01/02/2023 Office Visit Rheumatology Mary Shaw PA-C [address] [facility] [place] [address] Health Maintenance Due Date Last Done [...] (#1) 2022 GFR - Renal Function 11/29/2022 04/16/2022, 11/29/2021, 10/31/2020, Additional history exists COVID-19 Vaccine Completed 04/24/2022, [...] Procedure Name Priority Date/Time Associated Diagnosis Comments RADIOLOGY SCANNED RESULT 06/25/2022 documented in this encounter Results * RADIOLOGY SCANNED RESULT (06/25/2022) Anatomical Region Laterality Modality Other 06/25/2022 No Physician Data Unknown [facility] RAD IOLOGY SERVICES documented in this encounter Care Teams Hand Molder Meat Relationship Specialty Start Date End Date Robbie Mohr DO [address] [place] [address] [place] [id number] PCP - General Family Medicine 06/27/22 documented as of this encounter
--- OUTSIDE RECORDS SUMMARY | 2023-02-05 23:37 | External Medical Summary | Summary of Care ---
Author Name Unknown Organization [facility] Address [address] [place] [address] Phone [phone] Care Team Providers Care Library Science Professor Name Role Phone Robbie Mohr DO Primary Care Provi frank Reason for Visit * Reason Onset Date Comments Precert Approved 09/18/2022 Jose Cruz Encounter Details Date Type Department Care Team Description 09/18/2022 Telephone Rheumatology [facility] [address] [place] [address] Mary Shaw PA-C [address] [place] [address] Precert Approved ( Jose Cruz) Allergies Active Allergy Reactions Severity Noted Date Comments Codeine 09/20/2014 documented as of this encounter (statuses as of 09/27/2022) Medications Medication Sig Dispensed Refills Start Date [...] 0 8 Active traMADol (ULTRAM) 50 MG TabletIndications :Psoriatic [...] Tablet 1 daily 0 3 Active Nystatin 131558 UNIT/GM External Powder (Nystop) 0 3 Active Clobetasol Propionate 0.05 % External Cream (Temovate) 0 3 Active Ustekinumab 90 MG/ML Subcutaneous Solution Prefilled Syringe (Stelera) 90 mg subcutaneous injection at 0 and 4 weeks; then [...] Oral Tablet Extended Release 24 Hour (Xeljanz XR)Indications:Ps oriatic arthritis (HCC) TAKE 1 TABLET (11MG) BY MOUTH IN THE MORNING 30 Tablet 11 2 09/28/19 23 Discontinued documented as of this encounter (statuses as of 09/27/2022) Active Problems Problem Noted Date Body mass [...] as of this encounter (statuses as of 09/27/2022) Immunizations Name Administration Dates Next Due COVID-19 [...] [facility] Or has something changed? * Telephone Encounter - LIDYA Leone - 09/19/2022 9:54 AM EDT Please route to correct pool for Stelara loading dose [id number] * Telephone Encounter - Cuca Segura LPN - 09/19/2022 9:42 AM EDT Please auth loading and maintenance dose, thx * Telephone Encounter - Mary Shaw PA-C - 09/18/2022 2:28 PM EDT Hiram Todd: Prior medications steroids, methotrexate, Enbrel, Remicade (1999- August 2016) discontinued due topersistent transaminitis and diagnosis of MGUS, Otezla-loss of efficacy;Cosentyx(12/25-11/17/18);Taltz (11/26--04/29) -loss of efficacy, [id number] daily,Xeljanz XR loss of efficacy documented in [...] arthropathy documented in this encounter Care Teams Library Science Professor Relationship Specialty Start Date End Date Robbie Mohr DO [address] [place] [address] PCP - General Family Medicine 06/27/22 documented as of this encounter
--- OUTSIDE RECORDS SUMMARY | 2023-02-05 23:37 | External Medical Summary | Summary of Care ---
Author Name Unknown Organization [place] Address [place] [address] Care Team Providers Care Devulcanizer Tender Name Role Phone Nimo Stewart MD Primary Care Provider [phone] Reason for Visit * Reason Onset Date Comments Appointment 03/14/2022 DEXA Encounter Details Date Type Department Care Team Description 03/14/2022 [address] [address] Nadeen Steiner MD [facility] [place] [id number] Appointment (DEXA) Allergies Active Allergy Reactions Severity Noted Date Comments Codeine 09/20/2014 documented as of this encounter (statuses as of 03/14/2022) Medications Medication Sig Dispensed Refills Start Date [...] mg. 1 tab daily 0 12/02/2019 Active Xeljanz XR 11 MG Oral Tablet Extended Release 24 Hour (Tofacitinib Citrate ER)Indications:Psori atic arthritis (HCC) Take 1 Tab by mouth daily. 30 Tab 5 04/25/2020 Active Gabapentin 300 MG Oral Capsule (Neurontin) [...] MOUTH DAILY. 90 Tablet 3 03/13/2022 Active documented as of this encounter (statuses as of 03/14/2022) Active Problems Problem Noted Date Body mass [...] as of this encounter (statuses as of 03/14/2022) Immunizations Name Administration Dates Next Due COVID-19 mRNA, LNP-s, No Pre serve, 2-Dose Series (Moderna) 04/19/2021,08/10/2020,07/13/2020 documented as of this encounter Social History Tobacco Use Types Packs/Day Years Used Date Never Smoker Smokeless Tobacco: Never Used Alcohol Use Standard Drinks/Week Comments Yes 0 (1 standard drink = 0.6 oz pur e alcohol) 1-2 drinks/month Alcohol Habits Answer Date Recorded How often do you have a drink containing alcohol ? Not asked How many drinks containing a lcohol do you have on a typical day when you are drinking? Not asked How often do you have six or more drinks on one occasion? Not asked Comment: 1-2 drinks/month 09/20/2014 Sex Assigned at Date Recorded Not on file Job Start Date Occupation Industry Not on file Not on file Not on file documented as of this encounter Miscellaneous Notes * Telephone Encounter - LIDYA Brandt - 03/14/2022 9:56 AM EDT I scheduled pt for Dexa at . I mailed pt a copy of appt w/ ph # to call and change if needed., documented in this encounter Plan of Treatment Upcoming Encounters Date Type Specialty Care Team Description 05/29/2022 Imaging Radiology 06/27/2022 Office Visit Rheumatology Nadeen Steiner MD [facility] [place] [address] Health Maintenance Due Date Last Done Comments [...] this topic documented as of this encounter Implants Not on filedocumented as of this encounter Advance Directives Documents on File Type Date Recorded Patient Master Cook Expl 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 Advanced Directive Advanced Directive Advanced Directive Advanced Directive Advanced Directive Advanced Directive Care Teams Devulcanizer Tender Relationship Specialty Start Date End Date Nimo Stewart MD [address] [place], [place] [address] [address] PCP - General Family Medicine 08/29/17 documented as of this encounter
--- OUTSIDE RECORDS SUMMARY | 2023-02-05 23:37 | External Medical Summary | Summary of Care ---
Author Name Unknown Organization [place] [address] Care Team Providers Care Orthotist/Prosthetist Name Role Phone Robbie Mohr Primary Care Provi frank Reason for Visit * Reason Onset Date Comments Medication Refill 08/02/2022 Encounter Details Date Type Department Care Team Description 08/02/2022 Refill Rheumatology [address] [place] [address] Makayla Moura MD [address] [place] [address] [place] [address] Allergies Active Allergy Reactions Severity Noted Date Comments Codeine 09/20/2014 documented as of this encounter (statuses as of 08/03/2022) Medications Medication Sig Dispensed Refills Start Date [...] the morning. 90 Capsule 1 08/03/2022 Active Omeprazole 20 MG Oral Capsule Delayed Release (PriLOSEC) TAKE 1 CAPSULE BY MOUTH DAILY 90 Capsule 3 07/26/2021 3 Discontinue d(Refill) documented as of this encounter (statuses as of 08/03/2022) Active Problems Problem Noted Date Body mass [...] as of this encounter (statuses as of 08/03/2022) Immunizations Name Administration Dates Next Due COVID-19 [...] encounter Miscellaneous Notes * Telephone Encounter - Diego Guerra RPh - 08/03/2022 1:22 PM ESTSigned Prescriptions: Disp Refills Omeprazole 20 MG Oral Capsule Delayed Rele*90 Cap*1 Sig: Take 1Capsule by mouth in the morning.Authorizing Provider: MAKAYLA MOURA User: DARSHANA GUERRA * Telephone Encounter - Melanie Denise CPhT - 08/02/2022 11:38 AM EST Did you pend patient's preferred pharmacy and medication before forwarding?yes Pharmacy: [facility] [place] Pending Prescriptions: Disp Refills Omeprazole 20 MG Oral Capsule Delayed Rel*90 Cap*3 Sig: Take 1 Capsule by mouth in the morning. Last Visit: 06/18/2018 (in office), Visit date not found (telemedicine) Next Visit: Visit date not found If no future appointments scheduled, and last appointment is greater than a year ago, please schedule patient for a follow-up appointment Last date the medication was ordered: 07/26/2021 Is this request for a controlled substance?No Urine Drug Screen:No results found for this or any previous visit. Patient Phone Numbers Labs: Lab Results Component Value Date/Time CREAT 1.68 (A) 04/16/2022 12:00 AM POTASSIUM 4.3 04/16/2022 12:00 AM TSH 1.910 10/31/2020 12:00 AM LDLCALC 87 11/29/2021 12:00 AM ALT 57 (A) 11/29/2021 12:00 AM HGBA1C 7.1 (A) 10/31/2020 12:00 AM documented in this encounter Plan of Treatment Upcoming Encounters Date Type Specialty Care Team Description 01/02/2023 Office Visit Rheumatology Mary Shaw PA-C [address] [place] [address], [place] [address] Health Maintenance Due Date Last Done Comments [...] shot) (#1) 2022 GFR - Renal Function 04/16/2023 04/16/2022, 11/29/2021, 10/31/2020, Additional history exists COVID-19 [...] Not on filedocumented as of this encounter Care Teams Orthotist/Prosthetist Relationship Specialty Start Date End Date Robbie Mohr DO [address] [facility] [place] [address] PCP - General Family Medicine 06/27/22 documented as of this encounter
--- OUTSIDE RECORDS SUMMARY | 2023-02-05 23:37 | External Medical Summary | Summary of Care ---
Author Name Unknown Organization [place] [address] Care Team Providers Care Commissions Specialist Name Role Phone Nimo Stewart MD Primary Care Provider [phone] Reason for Visit * Reason Onset Date Comments Order Request 05/17/2022 Need dexa order for 05/29/22 cpt [id number] Encounter Details Date Type Department Care Team Description 05/17/2022 Telephone Radiology, [facility] [address] [facility] [address] Dexa, Bone Density [address] [place] [address] Order Request (Need dexa order for ... Allergies Active Allergy Reactions Severity Noted Date Comments Codeine 09/20/2014 documented as of this encounter (statuses as of 05/17/2022) Medications Medication Sig Dispensed Refills Start Date [...] as of this encounter (statuses as of 05/17/2022) Active Problems Problem Noted Date Body mass [...] as of this encounter (statuses as of 05/17/2022) Immunizations Name Administration Dates Next Due COVID-19 [...] encounter Miscellaneous Notes * Telephone Encounter - Rajendra Crowley MD - 05/17/2022 3:12 PM EST ordered * Telephone Encounter - RT Maicol (R) - 05/17/2022 12:03 PM EST Need dexa order for 05/29/22 cpt [id number] documented in this encounter Plan of Treatment Upcoming Encounters Date Type Specialty Care Team Description 05/29/2022 Imaging Radiology 07/26/2022 Office Visit Rheumatology Mary Shaw PA-Conner [address] [place] [address] Scheduled Orders Name Type Priority Associated Diagnoses Orde r Schedule DEXA SCAN/BONE MINERAL AXIAL Medical Imaging Routine Senile osteoporosis Ordered: 05/17/2022 Health Maintenance Due Date Last Done Comments [...] as of this encounter Visit Diagnoses Diagnosis Senile osteoporosis- Primary documented in this encounter Care Teams Commissions Specialist Relationship Specialty Start Date End Date Nimo Stewart [facility] [address] [facility] [id number] PCP - General Family Medicine 08/29/17 documented as of this encounter
--- OUTSIDE RECORDS SUMMARY | 2023-02-05 23:37 | External Medical Summary | Summary of Care ---
Author Name Unknown Organization [place] [address] Care Team Providers Care Senior Information Developer Name Role Phone Nimo Stewart MD Primary Care Provider [phone] Reason for Visit * Reason Onset Date Comments Med Request 04/23/2022 Xeljanz XR 11 MG Oral Tablet Extended Release 24 Hour (Tofacitinib Citrate ER) Encounter Details Date Type Department Care Team Description 04/23/2022 Telephone Rheumatology [facility] [address] [place] [address] Mary Shaw PA-C [address] [place] [address] Med Request (Xeljanz XR 11 MG Oral [...] Telephone Encounter - Cuca Segura LPN - 05/14/2022 3:08 PM EST No, we printed a form off last week * Telephone Encounter - LIDYA Aguirre - 05/14/2022 1:58 PM EST Yes he will need to be re-enrolled for the new year. Is this already in process or do you need the [facility] to send him paperwork? Destini Beltre Bus Driver, [facility] 05/14/2022,1:58 PM * Telephone Encounter - Ave [...] blood work done and will take to [facility] to get it done before his appt in Jul. Pt's also stated that they are waiting for Rx for Xeljanz to be sent to [facility]. Spoke to [facility] and they stated that they need the Form completed from the Physician. Printed the form and gave it to Mary at to complete. * Telephone Encounter - Mary Shaw PA-C - 05/07/2022 1:58 PM EST Sent. Please see if patient had recent labs through his PCP. * Telephone Encounter - Cuca Segura LPN - 05/07/2022 11:54 AM EST Will send to [facility], if he needs assistance they [...] Release 24 Hour (Tofacitinib Citrate ER) Pharmacy: [facility] - this is the organization that it [...] 07/26/2022 Office Visit Rheumatology Mary Shaw PA-C [address] [facility] [place] [address] Health Maintenance Due Date Last Done Comments [...] documented in this encounter Care Teams Senior Information Developer Relationship Specialty Start Date End Date Nimo Stewart MD [address] [facility] [place] [id number] PCP - General Family Medicine 08/29/17 documented as of this encounter
--- OUTSIDE RECORDS SUMMARY | 2023-02-05 23:37 | External Medical Summary | Summary of Care ---
Author Name Unknown Organization [facility] Address [facility] [place] [address] Care Team Providers Care Custody Assistant Name Role Phone Robbie Mohr DO Primary Care Provi frank Reason for Visit * Reason Comments Rheum Follow Up Follow up - left wri st injection Encounter Details Date Type Department Care Team Description 06/27/2022 Office Visit Rheumatology [address] [place] [address] Rajendra Crowley MD [address] [place] [address] [place] [address] Psoriatic arthritis (HCC)*; Generalized osteoarthritis; High risk [...] called to verify the correctpatient, procedure, equipment, community support worker and site/side marked as required. [...] called to verify the correctpatient, procedure, equipment, community support worker and site/side marked as required. [...] 01/02/2023 Office Visit Rheumatology Mary Shaw PA-C [address] [place] [address] Scheduled Orders Name Type Priority Associated Diagnoses [...] Procedure Name Priority Date/Time Associated Diagnosis Comments VT ARTHROCENTESIS ASPIR&/INJ SMALL JT/BURSA W/O US Routine 06/27/2022 10:45 AM EST Psoriatic arthritis (HCC) VT ARTHROCENTESIS ASPIR&/INJ INTERM JT/BURS W/O US Routine 06/27/2022 10:45 AM EST Psoriatic arthritis (HCC) documented in this encounter Results * VT ARTHROCENTESIS ASPIR&/INJ SMALL JT/BURSA W/O US (06/27/2022 [...] to verify the correct patient, procedure, equipment, community support worker and site/side marked as required. Patient was prepped and draped in the usual sterile fashion. aRjendra Crowley MD PROCDOC FORM * [place] ARTHROCENTESIS ASPIR&/INJ INTERM JT/BURS W/O US (06/27/2022 [...] to verify the correct patient, procedure, equipment, community support worker and site/side marked as required. [...] Left documented in this encounter Care Teams Custody Assistant Relationship Specialty Start Date End Date Robbie Mohr DO [address] [place], [place] [address] [id number] PCP - General Family Medicine 06/27/22 documented as of this encounter
--- OUTSIDE RECORDS SUMMARY | 2023-02-05 23:37 | External Medical Summary | Summary of Care ---
Author Name Unknown Organization [place] [address] Care Team Providers Care Lehr Operator Name Role Phone Nimo Stewart MD Primary Care Provider [phone] Reason for Visit * Reason Onset Date Comments Med Request 04/23/2022 Xeljanz XR 11 MG Oral Tablet Extended Release 24 Hour (Tofacitinib Citrate ER) Encounter Details Date Type Department Care Team Description 04/23/2022 Telephone Rheumatology [facility] [address] [place] [address] Mary Shaw PA-C [address] [place] [address] Med Request (Xeljanz XR 11 MG Oral Tablet ... Allergies Active Allergy Reactions Severity Noted Date Comments Codeine 09/20/2014 documented as of this encounter (statuses as of 05/08/2022) Medications Medication Sig Dispensed Refills Start Date [...] as of this encounter (statuses as of 05/08/2022) Active Problems Problem Noted Date Body mass [...] as of this encounter (statuses as of 05/08/2022) Immunizations Name Administration Dates Next Due COVID-19 [...] blood work done and will take to [facility] to get it done before his appt in Jul. Pt's also stated that they are waiting for Rx for Xeljanz to be sent to [facility]. Spoke to [facility] and they stated that they need the Form completed from the Physician. Printed the form and gave it to Mary at to complete. * Telephone Encounter - Mary Shaw PA-C - 05/07/2022 1:58 PM EST Sent. Please see if patient had recent labs through his PCP. * Telephone Encounter - Cuca Segura LPN - 05/07/2022 11:54 AM EST Will send to [facility], if he needs assistance they will [...] Release 24 Hour (Tofacitinib Citrate ER) Pharmacy: [facility] - this is the organization that it [...] 07/26/2022 Office Visit Rheumatology Mary Shaw PA-C [address] [place] [address] Health Maintenance Due Date Last Done Comments [...] arthropathy documented in this encounter Care Teams Lehr Operator Relationship Specialty Start Date End Date Nimo Stewart MD [address] [facility] [place] [phone] PCP - General Family Medicine 08/29/17 documented as of this encounter
--- OUTSIDE RECORDS SUMMARY | 2023-02-05 23:37 | External Medical Summary ---
Author Name UNSPECIFIED Address Unknown Organization [facility] History of Encounters Reason for Assessment: Start of care - f urther visits planned Inpatient discharge facility: Past 14 Da ys: Discharged From Short Stay Acute Hospital Most Recent Inpatient Discharge Date: Functional Assessment Patient Living Situation: Patient lives with other person(s) in the home: Around the clock When Dyspneic: With moderate exerti on (e.g., while dressing, using commode or bedpan, walking distances less than 20 feet) Bowel Incontinence Frequency: Very rarel y or never has bowel incontinence Cognitive and Behavioral and Psychiatric Symptoms: None Current Ability: Bathing: Able to bathe in shower or tub with the intermittent assistance of another person: (a) for intermittent supervision or encouragement or reminders, OR (b) to get in and out of the shower or tub, OR (c) for washing difficult to reach areas. Current Ability: Ambulation: Able to wal k only with the supervision or assistance of another person at all times. 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
--- OUTSIDE RECORDS SUMMARY | 2023-02-05 23:37 | External Medical Summary | Summary of Care ---
Author Name Unknown Organization [facility] Address [address] [facility] [place] [address] Phone [phone] Care Team Providers Care Forest Ecologist Name Role Phone ToniacruzitoRobbie toney Kolby Primary Care Provi frank Encounter Details Date Type Department Care Team Description 09/06/2022 Orders Only Rheumatology [place] [id number] [facility] [place] [address] Rajendra Crowley MD [address] [place] [address] [place] [address] Allergies Active Allergy Reactions Severity Noted Date Comments Codeine 09/20/2014 documented as of this encounter (statuses as of 09/06/2022) Medications Medication Sig Dispensed Refills Start Date [...] 03/13/2022 Active Empagliflozin 10 MG Oral Tablet (Jardiance) [...] the morning. 90 Capsule 1 08/03/2022 Active Tofacitinib Citrate ER 11 MG Oral Tablet Extended Release 24 Hour (Xeljanz XR)Indications:Psor iatic arthritis (HCC) TAKE 1 TABLET (11MG) BY MOUTH IN THE MORNING 30 Tablet 11 05/07/2022 05/07/2023 Active documented as of this encounter (statuses as of 09/06/2022) Active Problems Problem Noted Date Body mass [...] as of this encounter (statuses as of 09/06/2022) Immunizations Name Administration Dates Next Due COVID-19 [...] Encounters Date Type Specialty Care Team Description 09/18/2022 Office Visit Rheumatology Mary Shaw PA-C [address] [place] [address] Pending Results Name Type Priority Associated Diagnoses Date /Time CHEMISTRY-OUTSIDE Lab Routine 023 Health Maintenance Due Date Last Done Comments [...] filedocumented as of this encounter Care Teams Forest Ecologist Relationship Specialty Start Date End Date Robbie Mohr DO [address] [place] [address] [place] [id number] PCP - General Family Medicine 06/27/22 documented as of this encounter
--- OUTSIDE RECORDS SUMMARY | 2023-02-05 23:37 | External Medical Summary | Summary of Care ---
Author Name Unknown Organization [facility] Address [address] [place] [facility] [place] [address] Phone [phone] Care Team Providers Care Outside Physical Damage Appraiser Name Role Phone Robbie Mohr DO Primary Care Provi frank Reason for Visit * Reason Comments Rheum Follow Up Recheck PSA, " new f lare of Psoriasis, increased joint pain" Encounter Details Date Type Department Care Team Description 09/18/2022 Office Visit Rheumatology [facility] [address] [place] [address] Mary Shaw PA-C [address] [place] [address] Psoriatic arthritis (HCC)*; High risk medication use; Steroid-induced osteoporosis; Generalized osteoarthritis; Encounter for long-term (current) use of medications; MGUS (monoclonal gammopathy of unknown significance) Allergies Active Allergy Reactions Severity Noted Date Comments Codeine 09/20/2014 documented as of this encounter (statuses as of 09/21/2022) Medications Medication Sig Dispensed Refills Start Date [...] IN THE MORNING 30 Tablet 11 05/07/2022 05/07/20 23 Active OneTouch Verio In Vitro Strip 0 07/13/2022 Active Fluticasone Propionate 50 MCG/ACT Nasal Suspension (Flonase) 0 08/24/2022 Active Lisinopril 30 MG Oral Tablet 1 daily 0 07/24/2022 Active Nystatin 544694 UNIT/GM External Powder (Nystop) 0 08/24/2022 Active Clobetasol Propionate 0.05 % External Cream (Temovate) 0 08/17/2022 Active predniSONE 5 MG Oral Tablet (Deltasone) Prednisone: 15 mg daily x 4 days, 12.5 mg daily x 4 days, 10 mg daily x 4 days, 7.5 mg daily x 4 days, 5 mg daily x 4 days, stop taper; resume maintenance dose 40 Tablet 0 09/18/2022 Active Lisinopril 20 MG Oral Tablet (Prinivil) 0 12/09/2021 09/19/19 23 Discontinued Hospital, Clinic, or Other Facility Administered Medication Ordered Dose Route Frequency Start Date End Date Status Lidocaine (PF) 2 % (PF) inj 20 mgIndications:Psoriatic arthritis (HCC) 20 mg IX ONCE 09/18/2022 09/18/2022 Ended methylPREDNISolone acetate (Depo-Medrol) 40 MG/ML inj 40 mgIndications:Psoriatic arthritis (HCC) 40 mg IX ONCE 09/18/2022 09/18/2022 Ended documented as of this encounter (statuses as of 09/21/2022) Active Problems Problem Noted Date Body mass [...] as of this encounter (statuses as of 09/21/2022) Immunizations Name Administration Dates Next Due COVID-19 [...] Pressure - - Pulse - - Temperature 36.7 C (98 F) 09/18/2022 1:55 PM EDT Respiratory Rate - - Oxygen Saturation - - Inhaled Oxygen Concentration - - Weight - - Height - - Body Mass Index - - documented in this encounter Patient Instructions * Patient Instructions* Mary Shaw PA-C - 09/18/2022 2:19 PM EDT Prednisone: 15 mg daily x 4 days, 12.5 mg daily x 4 days, 10 mg daily x 4 days, 7.5 mg daily x 4 days, 5 mg daily documented in this encounter Progress Notes * Mary Shaw PA-C - 09/18/2022 2:22 PM EDTAssociated Order(s): LG Joint Inj/Arthro: L glenohumeral Subjective: Current therapy: [id number] daily,Xeljanz XR Prior medications steroids, methotrexate, Enbrel, Remicade (1999-August 2016) discontinued due topersistent transaminitis and diagnosis of MGUS, Otezla-loss of efficacy;Cosentyx(12/25-11/17/18);Taltz (11/26--04/29) -loss of efficacy, Date of last labs reviewed: cbc, cmp, mag, lipid - 08/2022 Patient seen today for further follow up evaluation of psoriatic arthritis. Since the last visit the patient reports that he has been in and out of the hospital since June. He reports he had pneumonia and had been sick for a while. He reports now he has developed more plaques and is having more joint pain and swelling. He reports that his left hand, left shoulder, both knees, both ankles and feet are painful. He notes that he has a plaque right at the sacrum that is causing him pain. He reports he is on low-dose prednisone every day. He is currently taking Xeljanz, but does not feel this is helpful anymore. He has been on multiple medications. He is not seen Dermatology for his psoriasisrecently. Musculoskeletal ROS: . Abnormal: joint pain and joint swelling Other ROS: Pertinent positives in HPI . Constitutional: normal . Head normal . Eyes: normal . Ears, nose, throat, mouth: normal . Cardiovascular: normal . Respiratory: normal . Gastrointestinal: normal . Genitourinary: normal . Skin: normal . Neurologic: normal All other ROS reviewed and negative Social [...] ER 10 MEQ CPCR 1 tab daily traMADol (ULTRAM) 50 MG Tablet Take 2 Tabs by mouth every 6 hours as needed for Pain. 240 Tab 3 glimepiride (AMARYL) 2 MG Tablet 1 Tablet. 1 tab twice daily Metoprolol Succinate ER 200 MG TB24 1 Tablet. 1 tab daily TRADJENTA 5 MG Tablet 1 Tablet. 1 tab daily Gabapentin 300 MG Oral Capsule (Neurontin) 1 Capsule in the morning and 1 Capsule at noon and 1Capsule before bedtime. metOLazone 2.5 MG Oral Tablet (Zaroxolyn) Take 1 Tablet by mouth in the morning. Magnesium Oxide 400 MG Oral Capsule Take 1 Capsule by mouth in the morning. predniSONE 5 MG Oral Tablet (Deltasone) TAKE 1 TABLET BY MOUTH DAILY. 90 Tablet 3 Empagliflozin 10 MG Oral Tablet Take by mouth daily. PX Complete Senior Multivits Oral Tablet take 1 tablet by oral route every day Alendronate Sodium 70 MG Oral Tablet (Fosamax) Take 1 Tablet by mouth once a week. 4 Tablet 6 Omeprazole 20 MG Oral Capsule Delayed Release (PriLOSEC) Take 1 Capsule by mouth in the morning. 90 Capsule 1 Tofacitinib Citrate ER 11 MG Oral Tablet Extended Release 24 Hour (Xeljanz XR) TAKE 1 TABLET (11MG) BY MOUTH IN THE MORNING 30 Tablet 11 OneTouch Verio In Vitro Strip Fluticasone Propionate 50 MCG/ACT Nasal Suspension (Flonase) Lisinopril 30 MG Oral Tablet 1 daily Nystatin [id number] UNIT/GM External Powder (Nystop) Clobetasol Propionate 0.05 % External Cream (Temovate) No current facility-administered medications for this visit. Physical Exam Filed Vitals: 09/18/22 1355 Temp: 36.7 C (98 F) TempSrc: Infrared General: alert, healthy and mild distress Heart: regular rate & rhythm, no murmur and no gallops Lungs: clear to auscultation , no rales, wheezes or rhonchi Abdomen: abdomen soft, non-tender and normal bowel sounds Extremities: no clubbing, no cyanosis; bilateral pitting edema lower extremity Skin: Multiple plaques upper and lower extremities and on scalp; thickened plaque at top of buttocks Musculoskeletal Exam: Tenderness of the MCPs, PIP knees, bilateral wrist, bilateral elbow, bilateral knee, bilateral ankle and MTP squeeze Assessment: L40.50 Psoriatic arthritis (HCC) (primary encounter diagnosis) Z79.899 High risk medication use M81.8,T38.0X5A 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 Appears Xeljanz is no longer beneficial to him. Could consider Stelara which has some more skin coverage. Patient has failedmultiple medications in the past. Will do prednisone taper in the meantime to help with comfort. Prior to the procedure: Discussed in detail risks and benefits of joint injections. Risks include, butare not limited to, pain, bleeding, infection, local reaction, joint swelling, joint redness, and need for further injection or evaluation. Patient was agreeable to procedure note below. Written consent on file. Patient advised to hold any immunosuppressant medication if they are sick or on antibiotics. Labs ordered for monitoring for medication toxicity. Patient advised to contact the clinic with questions. Patient is aware that I will be leaving [facility] in November and she will follow up with one of my colleagues. Plan: 1. Discussed the above in detail with the patient. All questions were answered. 2. Meds: auth Stelara 3. Testing: none needed today 4. Follow up: 3 months 5. See procedure note below Mary Shaw PA-C Department of Rheumatology CC: Robbie Mohr, DO Fam Don Campbell is a 77 year old male patient. ICD-10-CM 1. Psoriatic arthritis (HCC) L40.50 2. High risk medication use Z79.899 3. 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 Generalized osteoarthritis M15.9 5. Encounter for long-term (current) use of medications Z79.899 6. MGUS (monoclonal gammopathy of unknown significance) D47.2 Past Medical History: Diagnosis Date Benign neoplasm [...] diabetes mellitus (HCC) Vitamin D deficiency Temperature 36.7 C (98 F), temperature source Infrared . LG Joint Inj/Arthro: L glenohumeral on 09/18/2022 3:28 PM Indications: pain Details: 25 G needle, posterior approach Medications: (depomedrol 40 mg Lidocaine 2% without epi 20 mg) Outcome: tolerated well, no immediate complications Procedure, treatment alternatives, risks and benefits explained, specific risks discussed. Consent was given by the patient. Immediately prior to procedure a time out was called to verify the correctpatient, procedure, equipment, learning support services director and site/side marked as required. Patient was prepped and draped in the usual sterile fashion. Mary Shaw PA-C 09/18/2022 The patient was discussed with me. I agree with the findings and plan as documented by Mary Shaw PA-C in this note. Rajendra Crowley MD Rheumatology Department documented in this encounter Nursing Notes * Van Smith LPN - 09/18/2022 1:55 PM EDT Chief Complaint Patient presents with Rheum Follow Up Recheck PSA, " new flare of Psoriasis, increased joint pain" documented in this encounter Plan of Treatment [...] Procedure Name Priority Date/Time Associated Diagnosis Comments [place] ARTHROCENTESIS ASPIR&/INJ MAJOR JT/BURSA W/O US Routine 09/18/2022 3:28 PM EDT Psoriatic arthritis (HCC) documented in this encounter Results * ND ARTHROCENTESIS ASPIR&/INJ MAJOR JT/BURSA W/O US (09/18/2022 3:28 PM EDT) Narrative Rajendra Crowley MD - 09/18/2022 3:28 PM EDT Rajendra Crowley MD 09/21/2022 8:03 AM LG Joint Inj/Arthro: L glenohumeral on 09/18/2022 3:28 PM Indications: pain Details: 25 G needle, posterior approach Medications: (depomedrol 40 mg Lidocaine 2% without epi 20 mg) Outcome: tolerated well, no immediate complications Procedure, treatment alternatives, risks and benefits explained, specific risks discussed. Consent was given by the patient. Immediately prior to procedure a time out was called to verify the correct patient, procedure, equipment, learning support services director and site/side marked as required. Patient was prepped and draped in the usual sterile fashion. Mary Jiménez documented in this encounter Visit Diagnoses Diagnosis Psoriatic arthritis (HCC)- Primary Psoriatic arthropathy High risk medication use Encounter for long-term (current) use of other medications Steroid-induced osteoporosis Other osteoporosis Generalized osteoarthritis Generalized osteoarthrosis, unspecified site Encounter for long-term (current) use of medications Encounter for long-term (current) use of other medications MGUS (monoclonal gammopathy of unknown significance) Monoclonal paraproteinemia documented in this encounter Administered Medications Inactive Administered Medications - up to 3 most recent administrations Medication Order MAR Action Action Date Dose Rate Site Lidocaine (PF) 2 % (PF) inj 20 mg 20 mg, Intra-Articular, ONCE, On Sat09/18/22 at 1615, For 1 dose Given 09/18/2022 3:30 PM EDT 20 mg S mamta Left methylPREDNISolone acetate (Depo-Medrol) 40 MG/ML inj 40 mg 40 mg, Intra-Articular, ONCE, On Sat09/18/22 at 1615, For 1 dose Given 09/18/2022 3:30 PM EDT 40 mg Jaspreet Raman documented in this encounter Care Teams Outside Physical Damage Appraiser Relationship Specialty Start Date End Date Robbie Mohr DO [address] [place] [address] [place] [phone] PCP - General Family Medicine 06/27/22 documented as of this encounter
--- OUTSIDE RECORDS SUMMARY | 2023-02-05 23:37 | External Medical Summary | Summary of Care ---
Author Name Unknown Organization [place] [address] Care Team Providers Care Horticultural Farmer Name Role Phone Robbie Mohr Primary Care Provi frank Encounter Details Date Type Department Care Team Description 07/12/2022 Orders Only Rheumatology [place] [address] [facility] [place] [address] Rajendra Crowley MD [address] [facility] [place] [address] Allergies Active Allergy Reactions Severity Noted Date [...] a week. 4 Tablet 6 06/27/2022 Active documented as of this encounter (statuses [...] 01/02/2023 Office Visit Rheumatology Mary Shaw PA-C [address] [place] [address] [place] [address] Health Maintenance Due Date Last Done Comments [...] Priority Date/Time Associated Diagnosis Comments CHEMISTRY-OUTSIDE Routine 04/16/2022 documented in this encounter Results * (ABNORMAL) CHEMISTRY-OUTSIDE (04/16/2022) CREATININE-OUTSID E LAB 1.68(A) 0.6 - 1.4 MG/DL OUTSIDE LAB (SEE SCANNED REPORT) EGFR-OUTSIDE LAB 38.3 ML/MIN OUT SIDE LAB (SEE SCANNED REPORT) POTASSIUM-OUTSIDE LAB 4.3 3.5 - 5.1 MMOL/L OUTSIDE LAB (SEE SCANNED REPORT) GLUCOSE-OUTSIDE LAB 137(A) 70 - 99 MG/DL OUTSIDE LAB (SEE SCANNED REPORT) HOURS FASTING OUTSID E LAB (SEE SCANNED REPORT) TRIGLYCERIDES-OUT SIDE LAB OUTSIDE LAB (SEE SCANNED REPORT) CHOLESTEROL-OUTSI DE LAB OUTSIDE LAB (SEE SCANNED REPORT) HDL-OUTSIDE LAB OUTS ADI LAB (SEE SCANNED REPORT) CHOL/HDL RATIO-OUTSIDE LAB OUTSIDE LA B (SEE SCANNED REPORT) LDL (CALCULATED)-OUTS ADI LAB OUTSIDE LAB (SEE SCANNED REPORT) LDL (DIRECT MEASURE)-OUTSIDE LAB OUTSIDE LAB (SEE SCANNED REPORT) HEMOGLOBIN, B9W-AEJSSMA LAB OUTSIDE LAB (SEE SCANNED REPORT) PHOSPHORUS-OUTSID E LAB OUTSIDE LAB (SEE SCANNED REPORT) PTH-OUTSIDE LAB OUTS ADI LAB (SEE SCANNED REPORT) MICROALBUMIN RATIO-OUTSIDE LAB OUTSIDE LA B (SEE SCANNED REPORT) PROTEIN, UA-OUTSIDE LAB OUTSIDE LAB (SEE SCANNED REPORT) HEMOGLOBIN-OUTSID E LAB 12.5(A) 14.0 - 18.0 G/DL OUTSIDE LAB (SEE SCANNED REPORT) CHEMISTRY COMMENT-OUTSIDE LAB SEE SCAN: CBCD, CMP, OUTSIDE LAB (SEE SCANNED REPORT) 04/16/2022 Robbie Mohr DO LABORATORY OUTSIDE LAB (SEE SCANNED REPORT) documented in this encounter Care Teams Horticultural Farmer Relationship Specialty Start Date End Date Robbie Mohr DO [address] [place] [address] [place] [address] PCP - General Family Medicine 06/27/22 documented as of this encounter
--- OUTSIDE RECORDS SUMMARY | 2023-02-05 23:38 | External Medical Summary | Summary of Care ---
Author [place] [address] Care Team Providers Care Group Rooms Coordinator Name Role Phone Nimo Stewart MD Primary Care Provider [phone] [phone] Reason for Visit * Reason Comments Rheum Follow Up follow up Encounter Details Date Type Department Care Team Description 06/14/2021 Office Visit Rheumatology [address] [place] [address] Nadeen Steiner MD 21 [place] [address] Psoriatic arthritis (HCC)*; Generalized osteoarthritis; Encounter for long-term (current) use of high-risk medication; MGUS (monoclonal gammopathy of unknown significance) Allergies Active Allergy Reactions Severity Noted Date Comments Codeine 09/20/2014 documented as of this encounter (statuses as of 06/14/2021) Medications Medication Sig Dispensed Refills Start Date End Date Status Cholecalciferol (VITAMIN D) 1000 UNIT Capsule 1 daily 0 Active amLODIPine (NORVASC) 10 MG Tablet 1 daily 0 07/13/2016 Active Lisinopril 40 MG Tablet 1 tab daily 0 08/27/2016 Active metFORMIN (GLUCOPHAGE) 500 MG Tablet 2 [...] mouth daily. 30 Tab 5 04/25/2020 Active Omeprazole 20 MG Oral Capsule Delayed Release (PriLOSEC) TAKE 1 CAPSULE BY MOUTH DAILY 90 Cap 3 07/21/2020 Active predniSONE 5 MG Oral Tablet (Deltasone)Indica tions:Psoriatic arthritis (HCC) TAKE 1 TABLET BY MOUTH DAILY. 100 Tab 3 03/06/2021 Active Gabapentin 300 MG Oral Capsule (Neurontin) 0 03/13/2021 Active gabapentin (NEURONTIN) 100 MG Capsule 1 tab daily 0 03/04/2018 06/14/2021 Discontinued( Medication List Clean Up) documented as of this encounter (statuses as of 06/14/2021) Active Problems Problem Noted Date Body mass [...] as of this encounter (statuses as of 06/14/2021) Immunizations Name Administration Dates Next Due COVID-19 [...] Pressure - - Pulse - - Temperature 36.6 C (97.8 F) 06/14/2021 9:31 AM ES T Respiratory Rate - - Oxygen Saturation - - Inhaled Oxygen Concentration - - Weight 135.3 kg (298 lb 4.8 oz) 06/14/2021 9:31 AM EST Height - - Body Mass Index 48.15 04/06/2019 1:19 PM EDT documented in this encounter Progress Notes * Nadeen Steiner MD - 06/14/2021 9:34 AM EST Reason for visit: Follow-up for ongoing evaluation and treatment of psoriatic arthritis. Last Office/Telemedicine Visit: 08/29/2020. Diagnosis date: Past treatments: steroids, methotrexate, Enbrel, Remicade (1999-August 2016) discontinued due topersistent transaminitis and diagnosis of MGUS, Otezla-loss of efficacy;Cosentyx(12/25-11/17/18); Taltz (11/26--04/29) -loss of efficacy Current regimen: [id number] daily,Xeljanz XR History of present illness: Since the time of his last evaluation, he notes the following: He has been doing well. Only has a small patch on his right elbow. No other active lesions. No joint complaints. notes that his Kimberly needs a new prescription. It appears that his prior auth inNovember. Most recent labs was done in August and I do not have a copy of the results. He had labs done at [facility]. He was sick back in March with URI that is why they had to cancel their appointments. 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 Family history: Family history is unchanged. Social History Tobacco Use Smoking status: Never Smoker Smokeless tobacco: Never Used Substance Use Topics Alcohol use: Yes Comment: 1-2 drinks/month Drug use: No Review of patient's allergies indicates: Allergen Reactions Codeine Review of systems: Review of Systems was asked and other than the issues noted in the History of present illness, no other significant symptoms are present. Current Outpatient Medications Medication Sig Dispense Refill Cholecalciferol (VITAMIN D) 1000 UNIT Capsule 1 daily amLODIPine (NORVASC) 10 MG Tablet 1 daily Lisinopril 40 MG Tablet 1 tab daily metFORMIN (GLUCOPHAGE) 500 MG Tablet 2 [...] Tab 3 glimepiride (AMARYL) 2 MG Tablet 2 mg. 1 tab twice daily Metoprolol Succinate ER 200 MG TB24 200 mg. 1 tab daily TRADJENTA 5 MG Tablet 5 mg. 1 tab daily Xeljanz XR 11 MG Oral Tablet Extended Release 24 Hour (Tofacitinib Citrate ER) Take 1 Tab by mouth daily. 30 Tab 5 Omeprazole 20 MG Oral Capsule Delayed Release (PriLOSEC) TAKE 1 CAPSULE BY MOUTH DAILY 90 Cap 3 predniSONE 5 MG Oral Tablet (Deltasone) TAKE 1 TABLET BY MOUTH DAILY. 100 Tab 3 Gabapentin 300 MG Oral Capsule (Neurontin) No current facility-administered medications for this visit. Examination: Vital signs: Temp 36.6 C (97.8 F) (Infrared ) | Wt 135.3 kg (298 lb 4.8 oz) | BMI 48.15 kg/m | BSA 2.51 m General: Patient appears well and in no acute distress. Skin: small psoriatic plaque on right elbow Chest: Clear to ascultation bilaterally with no wheezing, rales, or rhonchi. Heart: Rate regular and rhythm with normal S1 and S2. No murmurs, rubs or gallops. Extremities: 1+LE edema Musculoskeletal: Swollen joints: none Tender joints: none Diagnostic data reviewed Results for orders placed or performed in visit on 04/20/20 CHEMISTRY-OUTSIDE Result Value Ref Range CREATININE-OUTSIDE LAB 1.15 0.6 - 1.4 MG/DL EGFR-OUTSIDE LAB >60 >60 ML/MIN POTASSIUM-OUTSIDE LAB 4.2 3.5 - 5.1 MMOL/L GLUCOSE-OUTSIDE LAB 74 70 - 99 MG/DL HOURS FASTING TRIGLYCERIDES-OUTSIDE LAB 149 0 - 150 MG/DL CHOLESTEROL-OUTSIDE LAB 139 0 - 200 MG/DL HDL-OUTSIDE LAB 35 MG/DL CHOL/HDL RATIO-OUTSIDE LAB LDL (CALCULATED)-OUTSIDE LAB 30 MG/DL LDL (DIRECT MEASURE)-OUTSIDE LAB HEMOGLOBIN, O1M-FNIUQOG LAB 7.1 (A) 4.5 - 5.6 % PHOSPHORUS-OUTSIDE LAB PTH-OUTSIDE LAB MICROALBUMIN RATIO-OUTSIDE LAB PROTEIN, UA-OUTSIDE LAB HEMOGLOBIN-OUTSIDE LAB 12.7 (A) 14.0 - 18.0 G/DL CHEMISTRY COMMENT-OUTSIDE LAB TSH Result Value Ref Range TSH - OUTSIDE LAB 1.470 0.300 - 4.500 UIU/ML Assessment: ICD-10-CM 1. Psoriatic arthritis (HCC) L40.50 2. Generalized osteoarthritis M15.9 3. Encounter for long-term (current) use of high-risk medication Z79.899 4. MGUS (monoclonal gammopathy of unknown significance) D47.2 Mr. Campbell returns today for management of psoriatic arthritis. Doing well on his current regimen. Did have labs done back in August which I do not have a copy of yet. They are aware of the black box warning with regards to MARTHA inhibitors. On February 08, 2021, the FDA issued a Drug Safety Communication stating there is an increased risk of serious heart-related events such as heart attack or str lima, cancer, blood clots, and with Xeljanz and Xeljanz XR. The labels of all the MARTHA inhibitors already include boxed warnings regarding serious infections, malignancies, and thrombosis. Xeljanzs boxed warning also includes increased risk of . The FDA has announced revisions to the exi sting warnings will be required for all MARTHA inhibitors in addition to new warnings for Olumiant and Rinvoq. Discussed the above in detail with the patient. All questions were answered. Plan: 1. No changes to his immunosuppressive regimen. Will update prior auth for ongoing use of Xeljanz XR 2. Labs/Imaging: advised him to get labs done this month. Lipid panel with direct ldl if tg is high Cbc with wbc differential Comprehensive metabolic panel 3. He was encouraged to contact me with any questions or concerns. 4. Follow Up: Return in about 6 months (around 12/12/2021) for Clinic Visit. | For: Clinic Visit Nadeen Steiner MD PhD Rheumatology CC: Nimo Stewart MD documented in this encounter Nursing Notes * Ave Marin LPN - 06/14/2021 9:31 AM EST Chief Complaint Patient presents with Rheum Follow Up follow up 3 doses of Moderna received documented in this encounter Plan of Treatment Upcoming Encounters Date Type Specialty Care Team Description 12/20/2021 [facility] Visit [facility] [place] [address] Scheduled Orders Name Type Priority Associated Diagnoses Orde r Schedule LIPID PANEL WITH DIRECT LDL IF TG IS HIGH Lab Routine Psoriatic arthritis (HCC) Encounter for long-term (current) use of high-risk medication Ordered: 06/14/2021 CBC WITH WBC DIFFERENTIAL Lab Routine Psoriatic arthritis (HCC) Encounter for long-term (current) use of high-risk medication Ordered: 06/14/2021 COMPREHENSIVE METABOLIC PANEL Lab Routine Psoriatic arthritis (HCC) Encounter for long-term (current) use of high-risk medication Ordered: 06/14/2021 Health Maintenance Due Date Last Done Comments Yearly B-12 1945 Pneumococcal Vaccine: 65+ Years (1 of 4 - PCV13) 1949 Depression Screening, Annual for Pts 12 and Over 1955 DIABETES-EYE EXAM 1961 DIABETES-FOOT EXAM 1961 DTaP,Tdap,and Td Vaccines (1 - Tdap) 1962 Zoster Vaccines (1 of 2) 1993 COLONOSCOPY-EVERY 5 YRS AGES 18-100 01/04/2014 01/04/2009 *URINE PROTEIN ONCE FOR HTN-DIPSTICK ACCEPTABLE 09/23/2014 DIABETES-HGBA1C EVERY 6 MONTHS 08/30/2020 03/02/2020 Influenza Vaccine (FLU shot) (#1) 2021 *BASIC METABOLIC PANEL (BMP) FOR HTN YEARLY 04/22/2021 COVID-19 Vaccine (4 - Booste r for Moderna series) 10/17/2021 04/19/2021, 08/10/2020, 07/13/2020 GARDASIL-HPV IMMUNIZATION SERIES Aged Out No longer eligible b ased on patient's age to complete this topic MENINGOCOCCAL (MENACTRA/MENVEO) Aged Out No longer eligible b ased on patient's age to complete this topic documented as of this encounter Implants Not on filedocumented as of this encounter Visit Diagnoses Diagnosis Psoriatic arthritis (HCC)- Primary Psoriatic arthropathy Generalized osteoarthritis Generalized osteoarthrosis, unspecified site Encounter for long-term (current) use of high-risk medication Encounter for long-term (current) use of other medications MGUS (monoclonal gammopathy of unknown significance) Monoclonal paraproteinemia documented in this encounter Advance Directives Documents on File Type Date Recorded 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 Expl 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 Advanced Directive Advanced Directive Care Teams Group Rooms Coordinator Relationship Specialty Start Date End Date Nimo Stewart MD [address] [place], [place] [id number] PCP - General Family Medicine 08/29/17 documented as of this encounter"
--- OUTSIDE RECORDS SUMMARY | 2023-02-05 23:38 | External Medical Summary | Summary of Care ---
Author Name Unknown Organization [place] [address] Care Team Providers Care E D Tech Name Role Phone Nimo Stewart MD Primary Care Provider [phone] [phone] Encounter Details Date Type Department Care Team Description 06/22/2021 Orders Only Rheumatology, [place] [facility] [place] [address] Nadeen Steiner MD 21 [facility] [place] [address] Allergies Active Allergy Reactions Severity Noted Date Comments Codeine 09/20/2014 documented as of this encounter (statuses as of 06/22/2021) Medications Medication Sig Dispensed Refills Start Date [...] 0 04/10/2018 Active traMADol (ULTRAM) 50 MG TabletIndications:Pso riatic arthritis (HCC),Acute pain of both shoulders Take 2 Tabs by mouth every 6 hours as needed for Pain. 240 Tab 3 05/05/2018 Active glimepiride (AMARYL) 2 MG Tablet 2 mg. 1 tab twice daily 0 05/29/2018 Active Metoprolol Succinate ER 200 MG TB24 200 mg. 1 tab daily 0 10/13/2019 A ctive TRADJENTA 5 MG Tablet 5 mg. 1 tab daily 0 12/02/2019 Active Xeljanz XR 11 MG Oral Tablet Extended Release 24 Hour (Tofacitinib Citrate ER)Indications:Psoria tic arthritis (HCC) Take 1 Tab by mouth daily. 30 Tab 5 04/25/2020 Active Omeprazole 20 MG Oral Capsule Delayed Release (PriLOSEC) TAKE 1 CAPSULE BY MOUTH DAILY 90 Cap 3 07/21/2020 Active predniSONE 5 MG Oral Tablet (Deltasone)Indication s:Psoriatic arthritis (HCC) TAKE 1 TABLET BY MOUTH DAILY. 100 Tab 3 03/06/2021 Active Gabapentin 300 MG Oral Capsule (Neurontin) 0 03/13/2021 Active documented as of this encounter (statuses as of 06/22/2021) Active Problems Problem Noted Date Body mass [...] as of this encounter (statuses as of 06/22/2021) Immunizations Name Administration Dates Next Due COVID-19 [...] Office Visit Rheumatology Nadeen Steiner MD [address] [place] [address] Health Maintenance Due Date Last Done Comments Yearly B-12 1943 Pneumococcal Vaccine: 65+ Years (1 of 4 - PCV13) 1949 Depression Screening, Annual for Pts 12 and Over 1955 DIABETES-EYE EXAM 1961 DIABETES-FOOT EXAM 1961 DIABETES-URINE ALBUMIN/CREATININE EVERY 12 MONTHS 1961 DTaP,Tdap,and Td Vaccines (1 - Tdap) 1962 Zoster Vaccines (1 of 2) 1993 COLONOSCOPY-EVERY 5 YRS AGES 18-100 01/04/2014 01/04/2009 DIABETES-HGBA1C EVERY 6 MONTHS 08/30/2020 0 10/31/2020, 03/02/2020 Influenza Vaccine (FLU shot) (#1) 2021 *BASIC METABOLIC PANEL (BMP) FOR HTN YEARLY 04/22/2021 *BASELINE EKG FOR HTN 06/19/2021 COVID-19 Vaccine (4 - Booste r for [...] Priority Date/Time Associated Diagnosis Comments CHEMISTRY-OUTSIDE Routine 10/31/2020 TSH Routine 10/31/2020 documented in this encounter Results * TSH (10/31/2020) TSH - OUTSIDE LAB 1.910 0.300 - 4.500 UIU/ML OUTSIDE LAB (SEE SCANNED REPORT) Specimen Blood - Venous blood specime n (specimen) Narrative OUTSIDE LAB (SEE SCANNED REPORT) * CHEMISTRY-OUTSIDE (10/31/2020) CREATININE-OUTSIDE LAB 1.32 0.6 - 1.4 MG/DL OUTSIDE LAB (SEE SCANNED REPORT) EGFR-OUTSIDE LAB 51.7 OUTSIDE LAB (SEE SCANNED REPORT) POTASSIUM-OUTSIDE LAB 4.7 3.5 - 5.1 MMOL/L OUTSIDE LAB (SEE SCANNED REPORT) GLUCOSE-OUTSIDE LAB 136(A) 70 - 99 MG/DL OUTSIDE LAB (SEE SCANNED REPORT) HOURS FASTING OUTSIDE LAB (S EE SCANNED REPORT) TRIGLYCERIDES-OUTSIDE LAB 208(A) 0 - 150 MG/DL OUTSIDE LAB (SEE SCANNED REPORT) CHOLESTEROL-OUTSIDE LAB 173 0 - 200 MG/DL OUTSIDE LAB (SEE SCANNED REPORT) HDL-OUTSIDE LAB 40 OUTSIDE LAB (SEE SCANNED REPORT) CHOL/HDL RATIO-OUTSIDE LAB 4 OUTSIDE LAB (SEE SCANNED REPORT) LDL (CALCULATED)-OUTSIDE LAB 91 MG/DL OUTSIDE LAB (SEE SCANNED REPORT) LDL (DIRECT MEASURE)-OUTSIDE LAB OUTSIDE LAB (SEE SCANNED REPORT) HEMOGLOBIN, [id number] LAB 7.1(A) 4.5 - 5.6 % OUTSIDE LAB (SEE SCANNED REPORT) PHOSPHORUS-OUTSIDE LAB OUTSIDE LAB (SEE SCANNED REPORT) PTH-OUTSIDE LAB OUTSIDE LAB (SEE SCANNED REPORT) MICROALBUMIN RATIO-OUTSIDE LAB OUTSIDE LAB (SEE SCANNED REPORT) PROTEIN, UA-OUTSIDE LAB OUTSIDE LAB (SEE SCANNED REPORT) HEMOGLOBIN-OUTSIDE LAB 12.6(A) 14.0 - 18.0 G/DL OUTSIDE LAB (SEE SCANNED REPORT) CHEMISTRY COMMENT-OUTSIDE LAB Comment:SEE SCAN: CBCD, CMP, HA1C, LIPIDS, MG,PSA,VIT D, D3, D2 OUTSIDE LAB (SEE SCANNED REPORT) Specimen Narrative OUTSIDE LAB (SEE SCANNED REPORT) documented in this encounter Advance Directives Documents on File Type Date Recorded 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 Advanced Directive Advanced Directive Care Teams E D Tech Relationship Specialty Start Date End Date Nimo Stewart MD [address] [place], [place] [address] [address] PCP - General Family Medicine 08/29/17 documented as of this encounter
--- OUTSIDE RECORDS SUMMARY | 2023-02-05 23:38 | External Medical Summary | Summary of Care ---
Author Name Unknown [place] [address] Care Team Providers Care Medical Tech Name Role Phone Nimo Stewart MD Primary Care Provider [phone] [phone] Reason for Visit * Reason Comments eRx-Medication Refill Encounter Details Date Type Department Care Team Description 03/12/2022 Telephone Rheumatology [address] [place] [address] [facility] [place] [address] eRx-Medication Refill Allergies Active Allergy Reactions Severity Noted Date Comments Codeine 09/20/2014 documented as of this encounter (statuses as of 03/13/2022) Medications Medication Sig Dispensed Refills Start Date [...] 0 04/10/2018 Active traMADol (ULTRAM) 50 MG TabletIndication s:Psoriatic [...] Tablet Extended Release 24 Hour (Tofacitinib Citrate ER)Indications:P soriatic arthritis (HCC) Take 1 Tab by mouth [...] 12/09/2021 Active predniSONE 5 MG Oral Tablet (Deltasone)Indic ations:Psoriatic arthritis (HCC) TAKE 1 TABLET BY MOUTH DAILY. 90 Tablet 3 03/13/2022 Active predniSONE 5 MG Oral Tablet (Deltasone)Indic ations:Psoriatic arthritis (HCC) TAKE 1 TABLET BY MOUTH DAILY. 100 Tab 3 03/06/2021 03/13/2022 Discontinued documented as of this encounter (statuses as of 03/13/2022) Active Problems Problem Noted Date Body mass [...] as of this encounter (statuses as of 03/13/2022) Immunizations Name Administration Dates Next Due COVID-19 [...] Miscellaneous Notes * Telephone Encounter - Mary Morocho RPh - 03/13/2022 9:21 AM EDT Signed Prescriptions: Disp Refills predniSONE 5 MG Oral Tablet (Deltasone) 90 Tab*3 Sig: TAKE 1 TABLET BY MOUTH DAILY. Authorizing Provider: NADEEN STEINER Ordering User: MARY MOROCHO * Telephone Encounter - Mary Morocho RPh - 03/13/2022 9:15 AM EDT Rheumatology: Refill Request(s) Per review of the refill parameters, Medication was refilled . DEXA order for prison steroid use pended. Location not selected as does not appear from chart review that patient had previously. Different diagnosis code may be appropriate. Please approve if appropriate. Mary Morocho [facility] Clinical Pharmacist Rheumatology Department 03/13/2022,9:15 AM * Telephone Encounter - Gena Dias CPhT - 03/12/2022 3:38 PM EDT Pending Prescriptions: Disp Refills predniSONE 5 MG Oral Tablet [Pharmacy Med *90 Tab*0 Sig: TAKE 1 TABLET BY MOUTH DAILY. * Telephone Encounter - Gena Dias CPhT - 03/12/2022 3:38 PM EDT Patient is up to date for office visits. Pending Prescriptions: Disp Refills predniSONE 5 MG Oral Tablet (Deltasone) [*90 Tab*0 Sig: TAKE 1 TABLET BY MOUTH DAILY. Last Visit: 12/20/2021 (in office), Visit date not found (telemedicine) 06/27/2022 If no future appointments scheduled, and last appointment is greater than a year ago, please schedule patient for a follow-up appointment Last date the medication was ordered: 03/06/2021 Pharmacy: [facility] [place] Is this request for a controlled substance?No it is not controlled. Urine Drug Screen:No results found for this or any previous visit. Patient Phone Numbers Labs: Lab Results Component Value Date/Time CREAT 1.26 11/29/2021 12:00 AM POTASSIUM 4.6 11/29/2021 12:00 AM TSH 1.910 10/31/2020 12:00 AM LDLCALC 87 11/29/2021 12:00 AM ALT 57 (A) 11/29/2021 12:00 AM HGBA1C 7.1 (A) 10/31/2020 12:00 AM documented in this encounter Plan of Treatment Upcoming Encounters Date Type Specialty Care Team Description 06/27/2022 Office Visit Rheumatology Nadeen Steiner MD 21 [facility] [place] [address] Scheduled Orders Name Type Priority Associated Diagnoses Orde r Schedule DEXA SCAN/BONE MINERAL AXIAL Medical Imaging Routine Encounter for long-term (current) use of medications Disorder of bone, unspecified Ordered: 03/13/2022 Health Maintenance Due Date Last Done Comments [...] this encounter Visit Diagnoses Diagnosis Encounter for long-term (current) use of medications- Primary Encounter for long-term (current) use of other medications Psoriatic arthritis (HCC) Psoriatic arthropathy Disorder of bone, unspecified documented in this encounter Advance Directives Documents on File Type Date Recorded 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 Advanced Directive Advanced Directive Advanced Directive Advanced Directive Advanced Directive Care Teams Medical Tech Relationship Specialty Start Date End Date Nimo Stewart MD [address] [facility] [place] [address] PCP - General Family Medicine 08/29/17 documented as of this encounter
--- OUTSIDE RECORDS SUMMARY | 2023-02-05 23:38 | External Medical Summary | Summary of Care ---
Author Name [place] [address] Care Team Providers Care Solo Musician Name Role Phone Nimo Stewart MD Primary Care Provider [phone] Reason for Visit * Reason Comments eRx-Medication Refill Encounter Details Date Type Department Care Team Description 07/20/2020 Refill Rheumatology [address] [address] Nadeen Steiner MD [address] [place] [address] Allergies Active Allergy Reactions Severity Noted Date Comments Codeine 09/20/2014 documented as of this encounter (statuses as of 07/21/2020) Medications Medication Sig Dispensed Refills Start Date [...] Tablet 1 tab daily 0 04/01/2018 Active gabapentin (NEURONTIN) 100 MG Capsule 1 tab daily 0 03/04/2018 Active potassium chloride ER 10 MEQ CPCR 1 tab daily 0 04/10/2018 Active traMADol (ULTRAM) 50 MG TabletIndications :Psoriatic arthritis (HCC),Acute pain of both shoulders Take 2 Tabs by mouth every 6 hours as needed for Pain. 240 Tab 3 05/05/2018 Active glimepiride (AMARYL) 2 MG Tablet 2 mg. 1 tab twice daily 0 05/29/2018 Active predniSONE (DELTASONE) 5 MG TabletIndications :Psoriatic arthritis (HCC) Take 1 Tab by mouth daily. 100 Tab 3 10/05/2019 Active Metoprolol Succinate ER 200 MG TB24 [...] MOUTH DAILY 90 Cap 3 07/21/2020 Active omeprazole (PRILOSEC) 20 MG CPDR TAKE 1 CAPSULE BY MOUTH DAILY 90 Cap 3 07/21/2019 07/21/2020 Discontinued documented as of this encounter (statuses as of 07/21/2020) Active Problems Problem Noted Date Body mass [...] as of this encounter (statuses as of 07/21/2020) Social History Tobacco Use Types Packs/Day Years Used Date Never Smoker Smokeless Tobacco: Never Used Alcohol Use Drinks/Week oz/Week Comments Yes 1-2 drinks/bam h Sex Assigned at Date Recorded Not on file documented as of this encounter Miscellaneous Notes * Telephone Encounter - Nadeen Steiner MD - 07/21/2020 12:18 PM EST Signed Prescriptions: Disp Refills Omeprazole 20 MG Oral Capsule Delayed Rele*90 Cap 3 Sig: TAKE 1 CAPSULE BY MOUTH DAILY Authorizing Provider: NADEEN STEINER * Telephone Encounter - Mariya Motley RN - 07/21/2020 9:46 AM EST Pending Prescriptions: Disp Refills Omeprazole 20 MG Oral Capsule Delayed Rel*90 Cap 3 Sig: TAKE 1 CAPSULE BY MOUTH DAILY * Telephone Encounter - Vikki Tolliver [facility] - 07/20/2020 5:24 PM EST Pending Prescriptions: Disp Refills Omeprazole 20 MG Oral Capsule Delayed Rel*90 Cap 3 Sig: TAKE 1 CAPSULE BY MOUTH DAILY * Telephone Encounter - Vikki Tolliver [facility] - 07/20/2020 5:23 PM EST Pending Prescriptions: Disp Refills Omeprazole 20 MG Oral Capsule Delayed Rel*90 Cap 3 Sig: TAKE 1 CAPSULE BY MOUTH DAILY Last Office/Telemedicine Visit: 04/18/2020 Next Office Visit: 08/29/2020 Scheduled Provider(s): Nadeen Steiner MD If no future appointments scheduled, and last appointment is greater than a year ago, please schedule patient for a follow-up appointment Last date the medication was ordered: 07/21/2019 Pharmacy: [facility] [place] Is this request for a controlled substance?No Urine Drug Screen:No results found for this or any previous visit. Patient Phone Numbers Labs: Lab Results Component Value Date/Time CREAT 1.15 03/02/2020 POTASSIUM 4.2 03/02/2020 TSH 1.470 03/02/2020 LDLCALC 30 03/02/2020 ALT 83 (A) 11/20/2016 HGBA1C 7.1 (A) 03/02/2020 documented in this encounter Plan of Treatment Upcoming Encounters Date Type Specialty Care Team Description 08/29/2020 Office Visit Rheumatology Nadeen Steiner MD [address] [facility] [place] [address] Health Maintenance Due Date Last Done Comments Yearly B-12 1945 DIABETES-EYE EXAM 1961 DIABETES-FOOT EXAM 1961 DTaP,Tdap,and Td Vaccines (1 - Tdap) 1962 Zoster Vaccines (1 of 2) 1993 Pneumococcal Vaccine: 65+ Ye ars (1 of 1 - PPSV23) 2008 COLONOSCOPY-EVERY 5 YRS AGES 18-100 01/04/2014 01/04/2009 *DEPRESSION SCREENING,ANNUAL FOR PTS 12 AND OVER 09/23/2014 *URINE PROTEIN ONCE FOR HTN-DIPSTICK ACCEPTABLE 09/23/2014 Influenza Vaccine (FLU shot) (#1) 2020 *BASELINE EKG FOR HTN 04/23/2020 DIABETES-HGBA1C EVERY 6 MONTHS 08/30/2020 03/02/2020 MENINGOCOCCAL (MENACTRA/MENVEO) Aged Out No longer eligible based on patient's age to complete this topic documented as of this encounter Implants Not on filedocumented as of this encounter Advance Directives Documents on File Type Date Recorded Patient Auto Transmission Specialist Expl 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 Advanced Directive
--- OUTSIDE RECORDS SUMMARY | 2023-02-05 23:38 | External Medical Summary | Summary of Care ---
Author Name Unknown Organization [place] [address] Care Team Providers Care Positive Printer Operator Name Role Phone Nimo Stewart MD Primary Care Provider [phone] Reason for Visit * Reason Comments Mohs Surgery Patient is here for Mohs on the Left Antihelix. Patient denies pain in this location. Encounter Details Date Type Department Care Team Description 10/24/2021 Office Visit MOHS Surgery [facility] [address] [place] [address] Chelo Martinez MD [address] [place] [address] Squamous cell carcinoma of antihelix, left*; Actinic keratosis Allergies Active Allergy Reactions Severity Noted Date Comments Codeine 09/20/2014 documented as of this encounter (statuses as of 10/25/2021) Medications Medication Sig Dispensed Refills Start Date End Date Status Cholecalciferol (VITAMIN D) 1000 UNIT Capsule 1 daily 0 Active amLODIPine (NORVASC) 10 MG Tablet 1 daily 0 07/13/2016 Active Lisinopril 40 MG Tablet 20 mg . 1 tab daily 0 08/27/2016 Active metFORMIN [...] mouth daily. 30 Tab 5 04/25/2020 Active predniSONE 5 MG Oral Tablet (Deltasone)Indicatio [...] 400 mg in the morning. 0 Active documented as of this encounter (statuses as of 10/25/2021) Active Problems Problem Noted Date Body mass [...] as of this encounter (statuses as of 10/25/2021) Immunizations Name Administration Dates Next Due COVID-19 [...] - - Temperature 36.5 C (97.7 F) 10/24/2021 7:52 AM ED T Respiratory Rate - - Oxygen Saturation - - Inhaled Oxygen Concentration - - Weight 136.8 kg (301 lb 9.6 oz) 10/24/2021 7:52 AM EDT Height - - Body Mass Index 48.68 04/06/2019 1:19 PM EDT documented in this encounter Progress Notes * Chelo Martinez MD - 10/24/2021 10:15 AM EDT Images from the original note were not included. [facility] Surgery Note (See separate transcribed operative note for further detail) History: Sarwat Campbell is a 76 year old patient seen at the request of Marat Farrell PA-C for evaluation and management of the following lesion: Patient problem list reviewed. Patient medication/allergy lists reviewed. Patient also asks about a scaly lesion on his right tragus. Examination: Sarwat Campbell is alert, oriented and appears well and in no distress. The patient's skin is remarkable for: 1. Left antihelix: 8 mm x 8 mm pink scar 2. Right tragus with 3 mm pink scaly thin papule Impression/Plan: 1. Squamous cell carcinoma - left antihelix MMS Standard Mohs micrographic technique was utilized to treat this tumor. Microscopic examination of the specimen allowed the Mohs surgeon, whose dual role is to function as both surgeon and pathologist, to precisely identify the location of any remaining tumor or ascertain that the tissue margins were free of tumor. This process of excision of remaining tumor, mapping, and histologic exam was repeated until the tumor was excised completely. Patient identified, procedure verified, site identified and verified with the patient. Time out completed. Surgical removal of the lesion discussed with the patient (risks and benefits, including possibility of scarring, infection, recurrence or potential for further treatment). I have specifically identified the site with the patient. I have discussed the fact that the patient will have a scar after the procedure regardless of granulation or repair with sutures. I have discussed that the repair options can range from granulation in some cases to linear or curvilinear closures to larger flaps or grafts. There is a risk of injury to nerves causing temporary or permanent numbness. Questions answered and verbal and written consent was obtained. 1 stage(s) Anesthetic: 0.05% lidocaine with 1:100,000 epinephrine. Repair: Purse-string (see separate operative report for details) Discuss repair options including full-thickness skin graft and healing by second intent, patient did not have strong feelings either way but ultimately indicated he would be fine with the latter. 2 mm punch taken from center of cartilage to facilitate granulation. Purse string suture placed (3-0 vicryl) to decrease size of the wound. Absorbable sutures Wound care was discussed verbally, demonstrated and printed wound instructions given as well as wound care supplies. Patient instructed to call with questions or concerns. Personal contact information provided. 2. Actinic Keratosis, right tragus - A total of 1 lesion(s) were treated with cryotherapy. - The patient was counseled on the premalignant nature of these lesions, and they were treated withcryotherapy today which the patient is agreeable to. The risks, benefits, indications, alternatives, and complications were discussed, and consent was obtained. Follow-up: 3 weeks Chelo Martinez MD Associate, Mohs Micrographic Surgery & Dermatologic Surgery documented in this encounter Procedure Notes * Chelo Martinez MD - 10/24/2021 2:00 PM EDT CLINIC NOTES [place] [address] MOHS MICROGRAPHIC SURGERY Sarwat Campbell [facility]# [id number] 10/24/2021 [facility] NUMBER: [id number] BIOPSY: [id number] [facility] OPERATION: SURGICAL EXCISION OF CUTANEOUS MALIGNANCY USING CONTINUOUS MICROSCOPIC CONTROL(MOHS MICROGRAPHIC SURGERY) DIAGNOSIS: well differentiated squamous cell carcinoma LOCATION: left antihelix INDICATION FOR MOHS SURGERY: Location SURGEON: Chelo Martinez M.D. PIPE PULLER SURGEON: NONE PIPE PULLER SURGEON: NONE ANESTHETIC: Buffered lidocaine 0.5% with epinephrine 1:200,000 SUPERVISOR SHIPPING: Chelo Martinez M.D. PREOPERATIVE SIZE OF LESION: 0.8 x 0.8 cm POSTOPERATIVE SIZE OF DEFECT: 1.2 x 1.0 cm ESTIMATED BLOOD LOSS: 5CC PROCEDURE: Time out called. Patient identified. Procedure matches verbalized consent. Site identified and verified and confirmed immediately prior to the procedure. Site marked. Thin layers of tumor-containing tissue were excised at each stage of surgery. These were cut into smaller tissue sections which were examined microscopically in a systematic fashion. Examination of the entire base and superficial peripheral margin allowed microscopic tumor extensions to be located and mapped. In accordance with the Mohs technique, this procedure enabled the maximum amount of normal tissue to be preserved while achieving the highest cure rate for cutaneous malignancy. At each surgical stage, the patient was prepped, the proposed excision outlined on the skin, and the area was reanesthetized as needed. STAGE I: The patient was prepped and the area of surgery was outlined. The operative site was anesthetized with a local injection of buffered lidocaine 0.5% with epinephrine 1:200,000. Following this the clinically apparent portion of the tumor was surgically removed. Hemostasis was achieved with an electrosurgical device. A thin layer of tissue was surgically excised and hemostasis was obtained. A reference map was drawn and the excised tissue was cut into 4 sections for examination in the micrographic laboratory. Edges of each section were dyed in order to achieve precise orientation. Horizontal sectioning of the base and continuous peripheral margins were then carried out and the prepared microscopic sections were examined by Chelo Martinez M.D.. Any areas of residual well differentiated squamous cell carcinoma were indicated on the reference map, pinpointing the location in which further tissue excision was necessary. At this point, no further tumor cells were identified and the tumor eradication was considered to be complete for a total of 1 stage of surgery in which multiple microscopic slices of 4 tissue sections had been examined. WOUND MANAGEMENT: This wound was repaired with a purse-string suture. After sterilely preparing, anesthetizing and draping the surgical site, the wound was closed partially with a deep dermal-subcutaneous suture. This technique was chosen to decrease size of the surgical defect, provide a more desirable cosmetic result and decrease time to epithelialization. Total volume of Buffered lidocaine 0.5% with epinephrine 1:200,000, for Mohs Surgery and reconstruction was 4 ml. The final closure was 1.2 cm. in length. Subcutaneous closure material: Interrupted 3-0 Vicryl Cutaneous closure material: None Chelo Martinez M.D. Associate Department of Dermatology documented in this encounter Nursing Notes * Elayne Robison LPN - 10/24/2021 7:52 AM EDT Chief Complaint Patient presents with Mohs Surgery Patient is here for Mohs on the Left Antihelix. Patient denies pain in this location. Referral Doctor: Bud Hypertension History: Yes, refer to medication information for treatment. Diabetes History: No Thyroid History: No Bleeding Tendency: No Artificial Valve or Joint: Yes Pacemaker: no Defibrillator: no Hepatitis/HIV Exposure: No Smoking: no Consent signed yes documented in this encounter Miscellaneous Notes * Letters - Chelo Martinez MD - 10/24/2021 2:00 PM EDT Department of Dermatology [address] [place] [address] [place] [address] Chelo Martinez M.D. Associate Dermatologic Surgery October 24, 2021 Sarwat Campbell [id number] MOHS CASE: [id number] DX: well differentiated squamous cell carcinoma Dear Dr. Farrell, Thank you for referring Sarwat Campbell for treatment of well differentiated squamous cell carcinoma of the left antihelix. This tumor required 1 stage for complete removal. The surgical wound was repaired with combination of purse-string and directional guiding sutures. Thanks again for referring your patient to our office. Yours truly, Chelo Martinez M.D. documented in this encounter Plan of Treatment Upcoming Encounters Date Type Specialty Care Team Description 11/14/2021 Office Visit Dermatology Chelo Martinez MD [address] [place] [address] 12/20/2021 Office Visit Rheumatology [facility]adeen [facility] [place] [address] Health Maintenance Due Date Last Done [...] DIABETES-HGBA1C EVERY 6 MONTHS 05/03/2021 10/31/2020, 03/02/2020 *BASELINE EKG FOR HTN 06/19/2021 COVID-19 Vaccine (4 - Booster for Moderna series) 07/20/2021 04/19/2021, 08/10/2020, 07/13/2020 BASIC METABOLIC PANEL (BMP) FOR HTN YEARLY 10/31/2021 10/31/2020, 03/02/2020, 03/27/2019, Additional history exists Influenza Vaccine (FLU shot) (Season Ended) 2022 GARDASIL-HPV IMMUNIZATION SERIES Aged Out No longer eligible based on patient's age to complete this topic MENINGOCOCCAL (MENACTRA/MENVEO) Aged Out No longer eligible based on patient's age to complete this topic documented as of this encounter Implants Not on filedocumented as of this encounter Visit Diagnoses Diagnosis Squamous cell carcinoma of antihelix, left- Primary Actinic keratosis documented in this encounter Advance Directives Documents on File Type Date Recorded Patient Procedure Writer Expl 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 Advanced Directive Advanced Directive Advanced Directive Advanced Directive Care Teams Positive Printer Operator Relationship Specialty Start Date End Date Nimo Stewart MD [address] [facility] [place] [address] PCP - General Family Medicine 08/29/17 documented as of this encounter
--- OUTSIDE RECORDS SUMMARY | 2023-02-05 23:38 | External Medical Summary | Summary of Care ---
Author Name [place] [address] Care Team Providers Care Employment Director Name Role Phone Nimo Stewart MD Primary Care Provider [phone] Reason for Visit * Reason Comments eRx-Medication Refill Encounter Details Date Type Department Care Team Description 02/28/2021 Refill Rheumat[address] [address] Nadeen Steiner MD [address] [place] [address] Psoriatic arthritis (HCC) Allergies Active Allergy Reactions Severity Noted Date Comments Codeine 09/20/2014 documented as of this encounter (statuses as of 03/06/2021) Medications Medication Sig Dispensed Refills Start Date [...] MOUTH DAILY. 100 Tab 3 03/06/2021 Active predniSONE 5 MG Oral Tablet (Deltasone)Indica tions:Psoriatic arthritis (HCC) TAKE 1 TABLET BY MOUTH DAILY. 100 Tab 0 11/18/2020 03/06/2021 Discontinued documented as of this encounter (statuses as of 03/06/2021) Active Problems Problem Noted Date Body mass [...] as of this encounter (statuses as of 03/06/2021) Social History Tobacco Use Types Packs/Day Years Used Date Never Smoker Smokeless Tobacco: Never Used Alcohol Use Drinks/Week oz/Week Comments Yes 1-2 drinks/bam h Sex Assigned at Date Recorded Not on file Job Start Date Occupation Industry Not on file Not on file Not on file documented as of this encounter Miscellaneous Notes * Telephone Encounter - Twyla Xie RPh - 03/06/2021 6:40 AM EDT Signed Prescriptions: Disp Refills predniSONE 5 MG Oral Tablet (Deltasone) 100 Tab3 Sig: TAKE 1 TABLET BY MOUTH DAILY.Authorizing Provider: NADEEN STEINER User: TWYLA XIE * Telephone Encounter - Twyla Xie RPh - 03/06/2021 6:38 AM EDT Rheumatology: Refill Request(s) Medication was refilled - labs [facility] 03/03/2021 WBC 11.63 - stable A1C 7.8 Twyla Xie RPh [facility] Clinical Pharmacist Rheumatology Department 03/06/2021,6:38 AM * Telephone Encounter - Tania West, showroom manager - 03/01/2021 1:35 PM EDT Pending Prescriptions: Disp Refills predniSONE 5 MG Oral Tablet (Deltasone) [*100 Tab0 Sig: TAKE 1 TABLET BY MOUTH DAILY. * Telephone Encounter - Tania West PHARM Tech - 03/01/2021 1:35 PM EDT Pending Prescriptions: Disp Refills predniSONE 5 MG Oral Tablet (Deltasone) [*100 Tab0 Sig: TAKE 1 TABLET BY MOUTH DAILY. Last Office/Telemedicine Visit: 08/29/2020 Next Office Visit: 03/15/2021 Scheduled Provider(s): Nadeen Steiner MD If no future appointments scheduled, and last appointment is greater than a year ago, please schedule patient for a follow-up appointment Last date the medication was ordered: 11/18/2020 [facility]acy: [facility] [place] Is this request for [...] Encounters Date Type Specialty Care Team Description 03/15/2021 Office Visit Rheumatology Nadeen Steiner MD [address] [place] [address] Health Maintenance Due Date Last Done Comments Yearly B-12 1945 Pneumococcal Vaccine: 65+ Ye ars (1 of 2 - PPSV23) 1949 COVID-19 Vaccine (1) 1955 DIABETES-EYE EXAM 1961 DIABETES-FOOT EXAM 1961 DTaP,Tdap,and Td Vaccines (1 - Tdap) 1962 Zoster Vaccines (1 of 2) 1993 COLONOSCOPY-EVERY 5 YRS AGES 18-100 01/04/2014 01/04/2009 *DEPRESSION SCREENING,ANNUAL FOR PTS 12 AND OVER 09/23/2014 *URINE PROTEIN ONCE FOR HTN-DIPSTICK ACCEPTABLE 09/23/2014 *BASELINE EKG FOR HTN 04/23/2020 DIABETES-HGBA1C EVERY 6 MONTHS 08/30/2020 03/02/2020 Influenza Vaccine (FLU shot) (#1) 2021 MENINGOCOCCAL (MENACTRA/MENVEO) Aged Out No longer eligible based on patient's age to complete this topic documented as of this encounter Implants Not on filedocumented as of this encounter Visit Diagnoses Diagnosis Psoriatic arthritis (HCC) Psoriatic arthropathy documented in this encounter Advance Directives Documents on File Type Date Recorded Patient E Learning Specialist Expl 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
--- OUTSIDE RECORDS SUMMARY | 2023-02-05 23:38 | External Medical Summary | Summary of Care ---
Author Name Unknown Organization [place] [address] Care Team Providers Care Supervisor Buffing And Pasting Name Role Phone Nimo Stewart MD Primary Care Provider [phone] Reason for Visit * Reason Comments Rheum Follow Up follow up Encounter Details Date Type Department Care Team Description 12/20/2021 Office Visit Rheumatology [address] [place] [address] Nadeen Steiner MD 21 [facility] [address] [place] [address] Psoriatic arthritis (HCC)*; Generalized osteoarthritis; MGUS (monoclonal gammopathy of unknown significance); Encounter for long-term (current) use of high-risk medication; Transaminitis Allergies Active Allergy Reactions Severity Noted Date Comments Codeine 09/20/2014 documented as of this encounter (statuses as of 12/20/2021) Medications Medication Sig Dispensed Refills Start Date [...] 04/25/2020 Active predniSONE 5 MG Oral Tablet (Deltasone)Indica [...] MG Oral Tablet (Prinivil) 0 12/09/2021 Active Lisinopril 40 MG Tablet 20 mg . 1 tab daily 0 08/27/2016 12/20/2021 Discontinued (Medication List Clean Up) documented as of this encounter (statuses as of 12/20/2021) Active Problems Problem Noted Date Body mass [...] as of this encounter (statuses as of 12/20/2021) Immunizations Name Administration Dates Next Due COVID-19 [...] Sign Reading Time Taken Comments Blood Pressure 136/72 12/20/2021 10:45 AM EDT Pulse - - Temperature 36.9 C (98.4 F) 12/20/2021 10:45 AM E DT Respiratory Rate - - Oxygen Saturation - - Inhaled Oxygen Concentration - - Weight 136.1 kg (300 lb) 12/20/2021 10:45 AM EDT Height - - Body Mass Index 48.42 04/06/2019 1:19 PM EDT documented in this encounter Progress Notes * Nadeen Steiner MD - 12/20/2021 10:50 AM EDT Reason for visit: Follow-up for ongoing evaluation and treatment of psoriatic arthritis. He is accompanied by his . Last clinic visit: 06/14/2021 Diagnosis date: 1980s Past treatments: steroids, methotrexate, Enbrel, Remicade (1999-August 2016) discontinued due topersistent transaminitis and diagnosis of MGUS, Otezla-loss of efficacy;Cosentyx(12/25-11/17/18);Taltz (11/26--04/29) -loss of efficacy Current regimen: [id number] daily,Xeljanz XR History of present illness: Since the time of his last evaluation, he notes he continues to do well. No joint complaints. Only active psoriatic plaque is on his right elbow. Is noticing more easy bruising. Most recent labs from last month showed mild transaminitis which is new. No new medications. He denies any interval infections, hospitalizations, or surgeries. 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 Hyperlipidemia E78.5 GERD (gastroesophageal reflux disease) K21.9 Hypertension I10 Psoriatic arthritis ([facility]) L40.50 Diabetes mellitus ([facility]) E11.9 Diabetic neuropathy ([facility]) E11.40 High risk medication use Z79.899 CKD (chronic kidney disease) stage 2, GFR 60-89 ml/min N18.2 Generalized osteoarthritis M15.9 Body mass index (BMI) of 45.0 to 49.9 in adult ([facility]) Z68.42 Past medical history: Reviewed [...] Tab by mouth daily. 30 Tab 5 predniSONE 5 MG Oral Tablet (Deltasone) TAKE 1 TABLET BY MOUTH DAILY. 100 Tab 3 Gabapentin 300 MG Oral Capsule (Neurontin) Omeprazole 20 MG Oral Capsule Delayed Release (PriLOSEC) TAKE 1 CAPSULE BY MOUTH DAILY 90 Capsule 3 metOLazone 2.5 MG Oral Tablet (Zaroxolyn) Take by mouth 2.5 mg in the morning. Magnesium Oxide 400 MG Oral Capsule Take by mouth 400 mg in the morning. Lisinopril 20 MG Oral Tablet (Prinivil) No current facility-administered medications for this visit. Examination: Vital signs: BP 136/72 | Temp 36.9 C (98.4 F) (Infrared ) | Wt 136.1 kg (300 lb) | BMI 48.42 kg/m | BSA 2.52 m General: Patient appears well and in no acute distress. Skin: small psoriatic plaque on right elbow; scattered bruises on forearms Chest: Clear to ascultation bilaterally with no wheezing, rales, or rhonchi. Heart: Rate regular and rhythm with normal S1 and S2. No murmurs, rubs or gallops. Extremities: 1+ edmea Musculoskeletal: Swollen joints: none Tender joints: none Diagnostic data reviewed Results for orders placed or performed in visit on 06/22/21 CHEMISTRY-OUTSIDE Result Value Ref Range CREATININE-OUTSIDE LAB 1.32 0.6 - 1.4 MG/DL EGFR-OUTSIDE LAB 51.7 POTASSIUM-OUTSIDE LAB 4.7 3.5 - 5.1 MMOL/L GLUCOSE-OUTSIDE LAB 136 (A) 70 - 99 MG/DL HOURS FASTING TRIGLYCERIDES-OUTSIDE LAB 208 (A) 0 - 150 MG/DL CHOLESTEROL-OUTSIDE LAB 173 0 - 200 MG/DL HDL-OUTSIDE LAB 40 CHOL/HDL RATIO-OUTSIDE LAB 4 LDL (CALCULATED)-OUTSIDE LAB 91 MG/DL LDL (DIRECT MEASURE)-OUTSIDE LAB HEMOGLOBIN, [id number] LAB 7.1 (A) 4.5 - 5.6 % PHOSPHORUS-OUTSIDE LAB PTH-OUTSIDE LAB MICROALBUMIN RATIO-OUTSIDE LAB PROTEIN, UA-OUTSIDE LAB HEMOGLOBIN-OUTSIDE LAB 12.6 (A) 14.0 - 18.0 G/DL CHEMISTRY COMMENT-OUTSIDE LAB TSH Result Value Ref Range TSH - OUTSIDE LAB 1.910 0.300 - 4.500 UIU/ML Assessment: ICD-10-CM 1. Psoriatic arthritis (HCC) L40.50 2. Generalized osteoarthritis M15.9 3. MGUS (monoclonal gammopathy of unknown significance) D47.2 4. Encounter for long-term (current) use of high-risk medication Z79.899 5. Transaminitis R74.01 Mr. Campbell returns today for management of psoriatic arthritis. Continues to find benefit from his immunosuppressive regimen with some side effects from prednisone. Transaminitis may be medication related versus fatty liver. Discussed the above in detail with the patient and his . All questions were answered. Plan: 1. No changes to his regimen. 2. Labs/Imaging: orders given for next visit Cbc with wbc differential Comprehensive metabolic panel Lipid panel with direct ldl if tg is high 3. He was encouraged to contact me with any questions or concerns. 4. Follow Up: Return in about 6 months (around 06/22/2022) for Clinic Visit. | For: Clinic Visit Nadeen Steiner MD PhD Rheumatology CC: Nimo Stewart MD documented in this encounter Nursing Notes * Ave Marin LPN - 12/20/2021 10:45 AM EDT Chief Complaint Patient presents with Rheum Follow Up follow up documented in this encounter Plan of Treatment Upcoming Encounters Date Type Specialty Care Team Description 06/27/2022 Office Visit Rheumatology Nadeen Steiner MD [address] [place] [address] [place] [id number] Scheduled Orders Name Type Priority Associated Diagnoses Orde r Schedule CBC WITH WBC DIFFERENTIAL Lab Routine Psoriatic arthritis (HCC) Encounter for long-term (current) use of high-risk medication Ordered: 12/20/2021 COMPREHENSIVE METABOLIC PANEL Lab Routine Psoriatic arthritis (HCC) Encounter for long-term (current) use of high-risk medication Ordered: 12/20/2021 LIPID PANEL WITH DIRECT LDL IF TG IS HIGH Lab Routine Psoriatic arthritis (HCC) Encounter for long-term (current) use of high-risk medication Ordered: 12/20/2021 Health Maintenance Due Date Last Done Comments [...] Vaccine (4 - Booster for Moderna series) 07/12/2021 04/19/2021, 08/10/2020, 07/13/2020 Influenza Vaccine (FLU shot) (#1) 2022 GFR [...] arthropathy Generalized osteoarthritis Generalized osteoarthrosis, unspecified site MGUS (monoclonal gammopathy of unknown significance) Monoclonal paraproteinemia Encounter for long-term (current) use of high-risk medication Encounter for long-term (current) use of other medications Transaminitis Nonspecific elevation of levels of transaminase or lactic acid dehydrogenase (LDH) documented in this encounter Advance Directives Documents on File Type Date Recorded 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 Advanced Directive Advanced Directive Advanced Directive Advanced Directive Advanced Directive Care Teams Supervisor Buffing And Pasting Relationship Specialty Start Date End Date Nimo Stewart MD [address] [facility] [place] [address] PCP - General Family Medicine 08/29/17 documented as of this encounter"
--- OUTSIDE RECORDS SUMMARY | 2023-02-05 23:38 | External Medical Summary | Summary of Care ---
Author Name Unknown [place] [address] Care Team Providers Care Ecommerce Manager Name Role Phone Nimo Stewart MD Primary Care Provider [phone] Reason for Visit * Reason Onset Date Comments Forms Request 06/16/2020 [email or web address] Encounter Details Date Type Department Care Team Description 06/16/2020 Telephone Sekou Hemphill 21 [facility] [place] [id number] Nadeen Wilde MD 21 [facility] [place] [id number] Forms Request (kimberly) Allergies Active Allergy Reactions Severity Noted Date Comments Codeine 09/20/2014 documented as of this encounter (statuses as of 09/01/2020) Medications Medication Sig Dispensed Refills Start Date [...] mouth daily. 30 Tab 5 04/25/2020 Active omeprazole (PRILOSEC) 20 MG CPDR TAKE 1 CAPSULE BY MOUTH DAILY 90 Cap 3 07/21/2019 07/21/2020 Discontinued documented as of this encounter (statuses as of 09/01/2020) Active Problems Problem Noted Date Body mass [...] as of this encounter (statuses as of 09/01/2020) Social History Tobacco Use Types Packs/Day Years Used Date Never Smoker Smokeless Tobacco: Never Used Alcohol Use Drinks/Week oz/Week Comments Yes 1-2 drinks/bam h Sex Assigned at Date Recorded Not on file Job Start Date Occupation Industry Not on file Not on file Not on file documented as of this encounter Miscellaneous Notes * Telephone Encounter - Van Smith LPN - 09/01/2020 7:53 AM EDT aooroval received from Mary mcintyre thru 06/09/21 * Telephone Encounter - Summer Hurtado LPN - 06/16/2020 2:21 PM EST Completed from faxed to [phone]. 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
--- OUTSIDE RECORDS SUMMARY | 2023-02-05 23:38 | External Medical Summary | Summary of Care ---
Author Name Unknown Organization [place] [address] Care Team Providers Care Programs Assistant Name Role Phone Nimo Stewart MD Primary Care Provider [phone] Reason for Visit * Reason Comments Wound Recheck Pt is here today for a wound recheck on the left ear s/p Mohs 08/24. No other concerns. Encounter Details Date Type Department Care Team Description 11/14/2021 Office Visit [facility] Surgery [facility] [address] [place] [address] Chelo Martinez MD [address] [place] [address] Visit for wound check* Allergies Active Allergy Reactions Severity Noted Date Comments Codeine 09/20/2014 documented as of this encounter (statuses as of 11/16/2021) Medications Medication Sig Dispensed Refills Start Date [...] as of this encounter (statuses as of 11/16/2021) Active Problems Problem Noted Date Body mass [...] as of this encounter (statuses as of 11/16/2021) Immunizations Name Administration Dates Next Due COVID-19 [...] as of this encounter Progress Notes * Chelo Martinez MD - 11/14/2021 4:25 PM EDT Images from the original note were not included. 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 Wound is healing well thus far and patient has no concerns/complaints. Patient had initially been applying vaseline/telfa but has left the wound uncovered for the past week. EXAM Surgical wound on left antihelix healing well PLAN 1) Continue vaseline with bandage until completely epithelialized. Start vinegar soaks daily (verbal and written instructions provided) 2) Return as needed The patient was encouraged to contact me with any further questions or concerns. Chelo Martinez MD Associate, Mohs Micrographic Surgery & Dermatologic Surgery documented in this encounter Nursing Notes * Laya Villa LPN - 11/14/2021 1:52 PM EDT Chief Complaint Patient presents with Wound Recheck Pt is here today for a wound recheck on the left ear s/p Mohs 08/24. No other concerns. 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 Advanced Directive Advanced Directive Advanced Directive Advanced Directive Care Teams Programs Assistant Relationship Specialty Start Date End Date Nimo Stewart MD [address] [facility] [place] [id number] PCP - General Family Medicine 08/29/17 documented as of this encounter
--- OUTSIDE RECORDS SUMMARY | 2023-02-05 23:38 | External Medical Summary | Summary of Care ---
Author [place] [address] Care Team Providers Care Restaurant Delivery Driver Name Role Phone Nimo Stewart MD Primary Care Provider [phone] Reason for Visit * Reason Comments Rheum Follow Up PsA Encounter Details Date Type Department Care Team Description 08/29/2020 Office Visit Rheumatology [address] [place] [address] [facility] [address] Psoriatic arthritis (HCC)*; Generalized osteoarthritis; Encounter for long-term (current) use of high-risk medication; MGUS (monoclonal gammopathy of unknown significance) Allergies Active Allergy Reactions Severity Noted Date Comments Codeine 09/20/2014 documented as of this encounter (statuses as of 08/29/2020) Medications Medication Sig Dispensed Refills Start Date [...] 0 05/29/2018 Active predniSONE (DELTASONE) 5 MG TabletIndications:Pso riatic arthritis (HCC) Take 1 Tab by mouth [...] MOUTH DAILY 90 Cap 3 07/21/2020 Active documented as of this encounter (statuses as of 08/29/2020) Active Problems Problem Noted Date Body mass [...] as of this encounter (statuses as of 08/29/2020) Social History Tobacco Use Types Packs/Day Years Used Date Never Smoker Smokeless Tobacco: Never Used Alcohol Use Drinks/Week oz/Week Comments Yes 1-2 drinks/bam h Sex Assigned at Date Recorded Not on file Job Start Date Occupation Industry Not on file Not on file Not on file documented as of this encounter Last Filed Vital Signs Vital Sign Reading Time Taken Comments Blood Pressure 140/64 08/29/2020 10:35 AM EDT Pulse - - Temperature 36.8 C (98.2 F) 08/29/2020 10:35 AM E DT Respiratory Rate - - Oxygen Saturation - - Inhaled Oxygen Concentration - - Weight - - Height - - Body Mass Index - - documented in this encounter Progress Notes * Nadeen Steiner MD - 08/29/2020 10:39 AM EDT Reason for visit: Follow-up for ongoing evaluation and treatment of psoriatic arthritis. He is accompanied by his who is also a patient. Last Office/Telemedicine Visit: 04/18/2020. Diagnosis date: Past treatments: steroids, methotrexate, Enbrel, Remicade (1999-August 2016) discontinued due topersistent transaminitis and diagnosis of MGUS, Otezla-loss of efficacy;Cosentyx(12/25-11/17/18); Taltz (11/26--04/29) -loss of efficacy Current regimen: prednisone5 mg daily,Xeljanz XR History of present illness: At the last visit due to loss of efficacy to Taltz, the medication was stopped and authorization for Xeljanz XR initiated. Today he notes that he has done very well. No issues with Xeljanz XR. No joint complaints. His skin has also responded to the Xeljanz XR. 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 Hyperlipidemia E78.5 GERD (gastroesophageal reflux disease) K21.9 Hypertension I10 Psoriatic arthritis (HCC) L40.50 Diabetes mellitus (HCC) E11.9 Diabetic neuropathy (HCC) E11.40 High risk medication use Z79.899 CKD (chronic kidney disease) stage 2, GFR 60-89 ml/min N18.2 Generalized osteoarthritis M15.9 Body mass index (BMI) of 45.0 to 49.9 in adult ([facility]) Z68.42 Past medical history: Reviewed and unchanged. Family history: Family history is unchanged. Social History Tobacco Use Smoking status: Never Smoker Smokeless tobacco: Never Used Substance Use Topics Alcohol use: Yes Comment: 1-2 drinks/month Drug use: No Vaping/E-Cigarette Use Vaping/E-Cigarette Substances Vaping/E-Cigarette Devices Allergies: Review of patient's allergies indicates: Allergen Reactions Codeine Review of systems: Review of Systems was asked and other than the issues noted in the History of present illness, no other significant symptoms are present. Current Outpatient Medications Medication Sig Dispense Refill Omeprazole 20 MG Oral Capsule Delayed Release (PriLOSEC) TAKE 1 CAPSULE BY MOUTH DAILY 90 Cap 3 Xeljanz XR 11 MG Oral Tablet Extended Release 24 Hour (Tofacitinib Citrate ER) Take 1 Tab by mouth daily. 30 Tab 5 Metoprolol Succinate ER 200 MG TB24 200 mg. 1 tab daily TRADJENTA 5 MG Tablet 5 mg. 1 tab daily predniSONE (DELTASONE) 5 MG Tablet Take 1 Tab by mouth daily. 100 Tab 3 glimepiride (AMARYL) 2 MG Tablet 2 mg. 1 tab twice daily traMADol (ULTRAM) 50 MG Tablet Take 2 Tabs by mouth every 6 hours as needed for Pain. 240 Tab 3 furosemide (LASIX) 40 MG Tablet 1 tab daily gabapentin (NEURONTIN) 100 MG Capsule 1 tab daily potassium chloride ER 10 MEQ CPCR 1 tab daily atorvaSTATin (LIPITOR) 10 MG Tablet 1 daily triamcinolone acetonide (ARISTOCORT) 0.1 % cream As directed clobetasol propionate (TEMOVATE) 0.05 % ointment As needed metFORMIN (GLUCOPHAGE) 500 MG Tablet 2 tabs daily amLODIPine (NORVASC) 10 MG Tablet 1 daily Lisinopril 40 MG Tablet 1 tab daily Cholecalciferol (VITAMIN D) 1000 UNIT Capsule 1 daily Examination: Vital signs: BP 140/64 | Temp 36.8 C (98.2 F) General: he appears well and is in no acute distress. Skin: No rashes Chest: Clear to ascultation bilaterally with no wheezing, rales, or rhonchi. Heart: Rate regular and rhythm with normal S1 and S2. No murmurs, rubs or gallops. Extremities: No edema. Musculoskeletal: Swollen joints: None Tender joints: None Diagnostic data reviewed Results for orders placed [...] 30 MG/DL LDL (DIRECT MEASURE)-OUTSIDE LAB HEMOGLOBIN, [id number] LAB 7.1 (A) 4.5 - 5.6 % [...] returns today for management of psoriatic arthritis. He has done well since starting Xeljanz XR. Plan: 1. No changes to his immunosuppressive regimen. 2. Provided printed lab orders which he should get 1-2 weeks prior to his next appointment. Lipid panel with direct ldl if tg is high Comprehensive metabolic panel Cbc with wbc differential 3. He was encouraged to contact me with any questions or concerns. 4. Follow Up: Return in about 6 months (around 03/01/2021) for Clinic Visit. | For: Clinic Visit Nadeen Steiner MD PhD Rheumatology CC: Nimo Stewart MD documented in this encounter Nursing Notes * Cuca Segura LPN - 08/29/2020 10:35 AM EDT Chief Complaint Patient presents with Rheum Follow Up PsA documented in this encounter Plan of Treatment Upcoming Encounters Date Type Specialty Care Team Description 03/15/2021 Office Visit Rheumatology Nadeen Steiner MD [address] [place] [id number] Scheduled Orders Name Type Priority Associated Diagnoses Orde r Schedule LIPID PANEL WITH DIRECT LDL IF TG IS HIGH Lab Routine Psoriatic arthritis (HCC) Encounter for long-term (current) use of high-risk medication Ordered: 08/29/2020 COMPREHENSIVE METABOLIC PANEL Lab Routine Psoriatic arthritis (HCC) Encounter for long-term (current) use of high-risk medication Ordered: 08/29/2020 CBC WITH WBC DIFFERENTIAL Lab Routine Psoriatic arthritis (HCC) Encounter for long-term (current) use of high-risk medication Ordered: 08/29/2020 Health Maintenance Due Date Last Done Comments [...] Documents on File Type Date Recorded 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
--- OUTSIDE RECORDS SUMMARY | 2023-02-05 23:38 | External Medical Summary | Summary of Care ---
[facility] [address] Care Team Providers Care Net Finisher Name Role Phone Nimo Stewart MD Primary Care Provider [phone] [phone] Reason for Visit * Reason Onset Date Comments Forms Request 06/16/2020 [email or web address] Encounter Details Date Type Department Care Team Description 06/16/2020 Telephone Sekou Hemphill [facility] [place] [id number] Nadeen Wilde MD [facility] [place] [address] Forms Request (rosibel) Allergies Active Allergy Reactions Severity Noted Date Comments Codeine 09/20/2014 documented as of this encounter (statuses as of 06/16/2020) Medications Medication Sig Dispensed Refills Start Date [...] 1 tab twice daily 0 05/29/2018 Active omeprazole (PRILOSEC) 20 MG CPDR TAKE 1 CAPSULE BY MOUTH DAILY 90 Cap 3 07/21/2019 Active predniSONE (DELTASONE) 5 MG TabletIndications:Pso riatic [...] mouth daily. 30 Tab 5 04/25/2020 Active documented as of this encounter (statuses as of 06/16/2020) Active Problems Problem Noted Date Body mass [...] as of this encounter (statuses as of 06/16/2020) Social History Tobacco Use Types Packs/Day Years Used Date Never Smoker Smokeless Tobacco: Never Used Alcohol Use Drinks/Week oz/Week Comments Yes 1-2 drinks/bam h Sex Assigned at Date Recorded Not on file documented as of this encounter Miscellaneous Notes * Telephone Encounter - Summer Hurtado LPN - 06/16/2020 2:21 PM EST Completed from faxed to [phone]. Original form scanned into chart * Telephone Encounter - Nadeen Wilde MD - 06/16/2020 1:47 PM EST Forms completed and placed on RN desk in [place] * Telephone Encounter - Van Smith LPN - 06/16/2020 9:30 AM EST Received form from [employer] assist for Anne-Mariebcespinoza, faxed tto LT for Dr wilde to complete, documented in this encounter Plan of Treatment Upcoming Encounters Date Type Specialty Care Team Description 08/29/2020 Office Visit Rheumatology Nadeen Wilde MD [address] [place] [address] Health Maintenance Due Date Last Done [...] Documents on File Type Date Recorded Patient Partner Manager Expl 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 Advanced Directive
--- OUTSIDE RECORDS SUMMARY | 2023-02-05 23:38 | External Medical Summary | Summary of Care ---
Author Name [place] [address] Care Team Providers Care House Cleaner Name Role Phone Nimo Stewart MD Primary Care Provider [phone] Reason for Visit * Reason Comments eRx-Medication Refill Encounter Details Date Type Department Care Team Description 11/16/2020 Refill Rheumatology [address] [address] Nadeen Steiner MD [address] [place] [address] Psoriatic arthritis (HCC) Allergies Active Allergy Reactions Severity Noted Date Comments Codeine 09/20/2014 documented as of this encounter (statuses as of 11/18/2020) Medications Medication Sig Dispensed Refills Start Date [...] BY MOUTH DAILY. 100 Tab 0 11/18/2020 Active predniSONE (DELTASONE) 5 MG TabletIndications :Psoriatic arthritis (HCC) Take 1 Tab by mouth daily. 100 Tab 3 10/05/2019 11/18/2020 Discontinued documented as of this encounter (statuses as of 11/18/2020) Active Problems Problem Noted Date Body mass [...] as of this encounter (statuses as of 11/18/2020) Social History Tobacco Use Types Packs/Day Years Used Date Never Smoker Smokeless Tobacco: Never Used Alcohol Use Drinks/Week oz/Week Comments Yes 1-2 drinks/bam h Sex Assigned at Date Recorded Not on file Job Start Date Occupation Industry Not on file Not on file Not on file documented as of this encounter Miscellaneous Notes * Telephone Encounter - Khai Peterson RPh - 11/18/2020 8:08 AM EDT Signed Prescriptions: Disp Refills predniSONE 5 MG Oral Tablet (Deltasone) 100 Tab0 Sig: TAKE 1 TABLET BY MOUTH DAILY.Authorizing Provider: NADEEN STEINER User: KHAI PETERSON------- * Telephone Encounter - Khai Peterson RPh - 11/18/2020 8:08 AM EDT Clinical Pharmacy Service (Rheumatology): Refill Request(s) PHYSICIAN ACTION NEEDED: No action needed Assessment & Plan After reviewing the parameters in order to refill the patient's medication(s), the following was determined: The medication(s), prednisone, were refilled and no parameters needed to be addressed. No communication to requesting entity necessary Refill Parameters The following parameters were assessed in order to decide whether or not this refill was appropriate: If the patient was seen in the last twelve months If the labs were completed in the last 6-12 months If the labs were within normal limits or stable at baseline If the dose was correct and/or if the prescription sig reflects the current prescribed dose If there were any new drug interactions with the patient's DMARD therapy If there were any care gaps/baseline labs that need to be addressed Khai Peterson RPh [facility] Clinical Pharmacist Rheumatology Department 11/18/2020,8:08 AM * Telephone Encounter - Gena Dias CPhT - 11/16/2020 10:01 AM EDT Pending Prescriptions: Disp Refills predniSONE 5 MG Oral Tablet [Pharmacy Med *100 Tab3 Sig: TAKE 1 TABLET BY MOUTH DAILY. * Telephone Encounter - Gena Dias CPhT - 11/16/2020 10:00 AM EDT Pending Prescriptions: Disp Refills predniSONE 5 MG Oral Tablet (Deltasone) [*100 Tab3 Sig: TAKE 1 TABLET BY MOUTH DAILY. Last Office/Telemedicine Visit: 08/29/2020 Next Office Visit: 03/15/2021 Scheduled Provider(s): Nadeen Steiner MD If no future appointments scheduled, and last appointment is greater than a year ago, please schedule patient for a follow-up appointment Last date the medication was ordered: 10/05/2019 Pharmacy: [facility] Is this request for a controlled substance?No [...] 03/15/2021 Office Visit Rheumatology Nadeen Steiner MD [address] [place] [address] [place] [address] Health Maintenance Due Date Last Done [...] MONTHS 08/30/2020 03/02/2020 Influenza Vaccine (FLU shot) (Season Ended) 2021 MENINGOCOCCAL (MENACTRA/MENVEO) Aged Out No longer eligible based on patient's age to complete this topic documented as of this encounter Implants Not on filedocumented as of this encounter Visit Diagnoses Diagnosis Psoriatic arthritis (HCC) Psoriatic arthropathy documented in this encounter Advance Directives Documents on File Type Date Recorded Patient Juice Scaleman Expl 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
--- OUTSIDE RECORDS SUMMARY | 2023-02-05 23:38 | External Medical Summary | Summary of Care ---
Author Name Unknown Organization [place] [address] Care Team Providers Care Research/Program Director Name Role Phone Nimo Stewart MD Primary Care Provider [phone] Encounter Details Date Type Department Care Team Description 11/29/2021 Result Scan Unspecified Department <No scans attached> Allergies Active Allergy Reactions Severity Noted Date Comments Codeine 09/20/2014 documented as of this encounter (statuses as of 12/13/2021) Medications Medication Sig Dispensed Refills Start Date [...] as of this encounter (statuses as of 12/13/2021) Active Problems Problem Noted Date Body mass [...] as of this encounter (statuses as of 12/13/2021) Immunizations Name Administration Dates Next Due COVID-19 [...] Office Visit Rheumatology Nadeen Steiner MD 21 [facility] [place] [address] Health Maintenance Due Date Last Done Comments [...] Additional history exists Influenza Vaccine (FLU shot) (#1) 2022 GARDASIL-HPV IMMUNIZATION SERIES Aged Out No longer eligible based on patient's age to complete this topic MENINGOCOCCAL (MENACTRA/MENVEO) Aged Out No longer eligible based on patient's age to complete this topic documented as of this encounter Implants Not on filedocumented as of this encounter Procedures Procedure Name Priority Date/Time Associated Diagnosis Comments OUTSIDE LAB RESULTS 11/29/2021 documented in this encounter Results * OUTSIDE LAB RESULTS (11/29/2021) Specimen Narrative documented in this encounter Advance Directives Documents on File Type Date Recorded 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 Advanced Directive Advanced Directive Advanced Directive Advanced Directive Care Teams Research/Program Director Relationship Specialty Start Date End Date Nimo Stewart MD [address] [place], [place] [id number] PCP - General Family Medicine 08/29/17 documented as of this encounter
--- OUTSIDE RECORDS SUMMARY | 2023-02-05 23:38 | External Medical Summary | Summary of Care ---
Author Name Unknown Organization [facility] [address] [place] [address] Care Team Providers Care Polishing Pad Mounter Name Role Phone Nimo Stewart MD Primary Care Provider [phone] Reason for Visit * Reason Onset Date Comments Medication Question 04/28/2020 Advice 04/28/2020 Encounter Details Date Type Department Care Team Description 04/28/2020 Telephone [address] [place] [address] Nadeen Steiner MD 21 [facility] [place] [address] Medication Question; Advice Allergies Active Allergy Reactions Severity Noted Date Comments Codeine 09/20/2014 documented as of this encounter (statuses as of 06/01/2020) Medications Medication Sig Dispensed Refills Start Date [...] as of this encounter (statuses as of 06/01/2020) Active Problems Problem Noted Date Body mass [...] as of this encounter (statuses as of 06/01/2020) Social History Tobacco Use Types Packs/Day Years Used Date Never Smoker Smokeless Tobacco: Never Used Alcohol Use Drinks/Week oz/Week Comments Yes 1-2 drinks/bam h Sex Assigned at Date Recorded Not on file documented as of this encounter Miscellaneous Notes * Telephone Encounter - Ana Busby OSA - 06/01/2020 11:02 AM EST Pt's , Katherine, called advising they heard from Xeljanz company today. Pt should be receiving medication through the mail on 06/06. * Telephone Encounter - Van Smith LPN - 05/17/2020 10:53 AM EST faxed * Telephone Encounter - Nadeen Steiner MD - 05/16/2020 4:38 PM EST Paperwork signed and placed on RN desk in [facility] * Telephone Encounter - Van Smith LPN - 05/16/2020 2:47 PM EST Received assistance Pfizer form for Xeljanz on Dr Mcelroy desk at * Telephone Encounter - Cuca Segura LPN - 04/28/2020 4:48 PM EST Yes it went to [facility], they have access to the updated info. aware * Telephone Encounter - Bettina Laird OSA - 04/28/2020 4:20 PM EST Pt Katherine calling. States she heard from our office and the insurance company that pt's PA for Xeljanz was approved. However, they haven't heard from pt's specialty pharmacy. Wanted to confirm that our office did send rx and if pharmacy received it. Katherine was worried the pharmacy had the wrong contact phone number for pt. I updated contact info in chart, . 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
--- OUTSIDE RECORDS SUMMARY | 2023-02-05 23:38 | External Medical Summary | Summary of Care ---
Author Name Unknown Organization [facility] [place] [address] Care Team Providers Care Finance Director Name Role Phone Nimo Stewart MD Primary Care Provider [phone] Reason for Visit * Reason Onset Date Comments Medication Question 04/28/2020 Advice 04/28/2020 Encounter Details Date Type Department Care Team Description 04/28/2020 Telephone Rheumatology [address] [place] [address] Nadeen Steiner MD 21 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
--- OUTSIDE RECORDS SUMMARY | 2023-02-05 23:38 | External Medical Summary | Summary of Care ---
Author Name Unknown Organization ising Address [facility] [place] [address] Care Team Providers Care Wire Frame Dipper Name Role Phone Nimo Stewart MD Primary Care Provider [phone] Reason for Visit * Reason Comments eRx-Medication Refill Encounter Details Date Type Department Care Team Description 07/26/2021 Refill Rheumatology [address] [place] [address] Nadeen Steiner MD 21 [facility] [place] [address] Allergies Active Allergy Reactions Severity Noted Date Comments Codeine 09/20/2014 documented as of this encounter (statuses as of 07/26/2021) Medications Medication Sig Dispensed Refills Start Date [...] 04/25/2020 Active predniSONE 5 MG Oral Tablet (Deltasone)Indic ations:Psoriatic arthritis (HCC) TAKE 1 TABLET BY MOUTH DAILY. 100 Tab 3 03/06/2021 Active Gabapentin 300 MG Oral Capsule (Neurontin) 0 03/13/2021 Active Omeprazole 20 MG Oral Capsule Delayed Release (PriLOSEC) TAKE 1 CAPSULE BY MOUTH DAILY 90 Capsule 3 07/26/2021 Active Omeprazole 20 MG Oral Capsule Delayed Release (PriLOSEC) TAKE 1 CAPSULE BY MOUTH DAILY 90 Cap 3 07/21/2020 07/26/2021 Discontinued documented as of this encounter (statuses as of 07/26/2021) Active Problems Problem Noted Date Body mass [...] as of this encounter (statuses as of 07/26/2021) Immunizations Name Administration Dates Next Due COVID-19 [...] Notes * Telephone Encounter - Diego Guerra [facility] - 07/26/2021 2:55 PM EST Signed Prescriptions: Disp Refills Omeprazole 20 MG Oral Capsule Delayed Rele*90 Cap*3 Sig: TAKE 1 CAPSULE BY MOUTH DAILYAuthorizing Provider: NADEEN STEINER User: DIEGO GUERRA--- * Telephone Encounter - Jj Weber, [facility] - 07/26/2021 2:23 PM EST Pending Prescriptions: Disp Refills Omeprazole 20 MG Oral Capsule Delayed Rel*90 Cap*5 Sig: TAKE 1 CAPSULE BY MOUTH DAILY * Telephone Encounter - Jj Weber RP - 07/26/2021 2:23 PM EST Pending Prescriptions: Disp Refills Omeprazole 20 MG Oral Capsule Delayed Rel*90 Cap*5 Sig: TAKE 1 CAPSULE BY MOUTH DAILY Last Visit: 06/14/2021 (in office), Visit date not found (telemedicine) Next Visit: 12/20/2021 If no future appointments scheduled, and last appointment is greater than a year ago, please schedule patient for a follow-up appointment Last date the medication was ordered: 07/21/20 [facility] [place] Is this request for a controlled substance? No Urine Drug Screen:No results found for this or any previous visit. Patient Phone Numbers Labs: Lab Results Component Value Date/Time CREAT 1.32 10/31/2020 12:00 AM POTASSIUM 4.7 10/31/2020 12:00 AM TSH 1.910 10/31/2020 12:00 AM LDLCALC 91 10/31/2020 12:00 AM ALT 83 (A) 11/20/2016 12:00 AM HGBA1C 7.1 (A) 10/31/2020 12:00 AM documented in this encounter Plan of Treatment Upcoming Encounters Date Type Specialty Care Team Description 12/20/2021 Office Visit Rheumatology Nadeen Steiner MD 21 [facility] [place] [address] Health Maintenance Due Date Last Done Comments Yearly B-12 1943 Pneumococcal Vaccine: 65+ Years (1 of 4 - PCV13) 1949 Depression Screening, Annual for Pts 12 and Over 1955 BASIC METABOLIC PANEL (BMP) FOR HTN YEARLY 1961 DIABETES-EYE EXAM 1961 DIABETES-FOOT EXAM 1961 DIABETES-URINE ALBUMIN/CREATININE EVERY 12 MONTHS 1961 DTaP,Tdap,and Td Vaccines (1 - Tdap) 1962 Zoster Vaccines (1 of 2) 1993 COLONOSCOPY-EVERY 5 YRS AGES 18-100 01/04/2014 01/04/2009 Influenza Vaccine (FLU shot) (#1) 2021 DIABETES-HGBA1C EVERY 6 MONTHS 05/03/2021 0 10/31/2020, 03/02/2020 *BASELINE EKG FOR HTN 06/19/2021 COVID-19 Vaccine (4 - Booste r for Moderna series) 09/17/2021 04/19/2021, 08/10/2020, 07/13/2020 GARDASIL-HPV IMMUNIZATION SERIES Aged Out No longer eligible b ased on patient's age to complete this topic MENINGOCOCCAL (MENACTRA/MENVEO) Aged Out No longer eligible b ased on patient's age to complete this topic documented as of this encounter Implants Not on filedocumented as of this encounter Advance Directives Documents on File Type Date Recorded 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 [place] [address] PCP - General Family Medicine 08/29/17 documented as of this encounter
--- OUTSIDE RECORDS SUMMARY | 2023-02-05 23:39 | External Medical Summary | Summary of Care ---
Author Name Unknown Organization [facility] [place] [address] Care Team Providers Care Shop Teacher Name Role Phone Nimo Stewart MD Primary Care Provider [phone] Reason for Visit * Reason Onset Date Comments Medication Question 04/28/2020 Encounter Details Date Type Department Care Team Description 04/28/2020 [address] [address] Nadeen Steiner MD 21 [place] [address] Medication Question Allergies Active Allergy Reactions Severity Noted Date Comments Codeine 09/20/2014 documented as of this encounter (statuses as of 05/17/2020) Medications Medication Sig Dispensed Refills Start Date [...] as of this encounter (statuses as of 05/17/2020) Active Problems Problem Noted Date Body mass [...] as of this encounter (statuses as of 05/17/2020) Social History Tobacco Use Types Packs/Day Years [...] for Xeljanz on Dr Mcelroy desk at [facility] * Telephone Encounter - Cuca Segura LPN - 04/28/2020 4:48 PM EST Yes it went to [facility], they have access to the [...] Encounters Date Type Specialty Care Team Description 05/27/2020 Pharmacy Pharmacy Assistance, [facility] [address] [place] [address] 08/29/2020 Office Visit Rheumatology Nadeen Steiner MD [address] [place] [id number] Health Maintenance Due Date Last Done Comments [...] Documents on File Type Date Recorded 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
--- OUTSIDE RECORDS SUMMARY | 2023-02-05 23:39 | External Medical Summary | Summary of Care ---
Author Name Unknown Organization [facility] [place] [address] Care Team Providers Care Virtual Customer Assistant Name Role Phone Nimo Stewart MD Primary Care Provider [phone] Reason for Visit * Reason Onset Date Comments Medication Question 04/28/2020 Encounter Details Date Type Department Care Team Description 04/28/2020 [address] [address] Nadeen Steiner MD 21 [place] [address] Medication Question Allergies Active Allergy Reactions Severity Noted Date Comments Codeine 09/20/2014 documented as of this encounter (statuses as of 05/16/2020) Medications Medication Sig Dispensed Refills Start Date [...] as of this encounter (statuses as of 05/16/2020) Active Problems Problem Noted Date Body mass [...] as of this encounter (statuses as of 05/16/2020) Social History Tobacco Use Types Packs/Day Years [...] 4:48 PM EST Yes it went to [facility] pharmacy, they have access to the [...] Care Team Description 05/27/2020 Pharmacy Pharmacy Assistance, [facility], [address] [place] [address] 08/29/2020 Office Visit Rheumatology Nadeen Steiner MD 21 [facility] [place] [address] Health Maintenance Due Date [...] Documents on File Type Date Recorded 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
--- OUTSIDE RECORDS SUMMARY | 2023-02-05 23:39 | External Medical Summary | Summary of Care ---
Author Name Unknown Organization [facility] [place] [address] Care Team Providers Care Scroll Shear Operator Name Role Phone Nimo Stewart MD Primary Care Provider [phone] [phone] Reason for Visit * Reason Onset Date Comments Precert Approved 04/18/2020 Xeljanz XR x Encounter Details Date Type Department Care Team Description 04/18/2020 Telephone Rheumatology [address] [place] [address] Nadeen [facility]iner [facility] [address] [facility]ert Approved (Xeljanz XR x) Allergies Active Allergy Reactions Severity Noted Date Comments Codeine 09/20/2014 documented as of this encounter (statuses as of 05/30/2020) Medications Medication Sig Dispensed Refills Start Date [...] as of this encounter (statuses as of 05/30/2020) Active Problems Problem Noted Date Body mass [...] as of this encounter (statuses as of 05/30/2020) Social History Tobacco Use Types Packs/Day Years Used Date Never Smoker Smokeless Tobacco: Never Used Alcohol Use Drinks/Week oz/Week Comments Yes 1-2 drinks/bam h Sex Assigned at Date Recorded Not on file documented as of this encounter Miscellaneous Notes * Telephone Encounter - Van Smith LPN - 05/30/2020 1:14 PM EST Spoke with manufacture to receive free med, will let pt know when this is complete. * Telephone Encounter - Van Smith LPN - 05/11/2020 7:55 AM EST Received form for Xelsource assistance, completed faxed to [phone] * Telephone Encounter - Nadeen Steiner MD - 04/25/2020 5:29 PM EST Order signed * Telephone Encounter - Cuca Segura LPN - 04/25/2020 4:01 PM EST Drug Name: XELJANZ XR Valid auth start date: 02/21/2020 Valid auth end date: 04/21/2021 Dx Code(s): L40.50 Specialty Pharmacy: [facility] Rx Insurance Info: [employer] * Telephone Encounter - Cuca Segura LPN - 04/20/2020 11:46 AM EST Please auth, thx * Telephone Encounter - Nadeen Steiner MD - 04/18/2020 10:26 AM EST Rheumatology Pre-Certification Request Rheumatology [place], Please submit pre-cert/affordability for the following: If the patient has a [facility] PCP, please also send a copy of this message to the PCP Medication/Disease State Information: ? Diagnosis: Psoriatic Arthritis ? Medication/Dose/Route/Interval: Xeljanz XR 1 tab daily ? Failed or Intolerant to or Contraindicated: failing Taltz. Past loss of efficacy to Cosentyx, Otezla, Enbrel, and Remicade Required Screening Information: ? Vaccination(s): Patient has [facility] PCP - will send copy of this message to PCP to follow the CDC/ACIP vaccination guidelines for this patient ? TB Testing: Quantiferon Negative ? Hepatitis B Screenings: Hep B Sab, Hep B Sag, Hep B Cab negative ? 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
--- OUTSIDE RECORDS SUMMARY | 2023-02-05 23:39 | External Medical Summary | Summary of Care ---
Author Name Unknown Organization [place] [address] Care Team Providers Care Hot Billet Shear Operator Name Role Phone Nimo Stewart MD Primary Care Provider [phone] Reason for Visit * Reason Comments Medication Refill Encounter Details Date Type Department Care Team Description 05/30/2020 Pharmacy [facility], [address] [place] [address] Assistance, [place] [facility], [facility] [address] [place], [place] [id number] Encounter for medication refill* Allergies Active Allergy Reactions Severity Noted Date Comments Codeine 09/20/2014 documented as of this encounter (statuses as of 05/31/2020) Medications Medication Sig Dispensed Refills Start Date [...] as of this encounter (statuses as of 05/31/2020) Active Problems Problem Noted Date Body mass [...] as of this encounter (statuses as of 05/31/2020) Social History Tobacco Use Types Packs/Day Years Used Date Never Smoker Smokeless Tobacco: Never Used Alcohol Use Drinks/Week oz/Week Comments Yes 1-2 drinks/bam h Sex Assigned at Date Recorded Not on file documented as of this encounter Progress Notes * Kortney Whaley LIDYA - 05/31/2020 4:45 PM EST Jaz called in from [employer]. They approved the christin and will reach out to the pt shortly to lazarus set up for his rosibel Whaley Production Team Manager [facility] 05/31/2020,4:46 PM documented in this encounter Plan of Treatment [...] of repeat prescriptions documented in this encounter Advance Directives Documents on File Type Date Recorded Patient Plywood Layup Line Back Feeder Expl 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 Advanced Directive
--- OUTSIDE RECORDS SUMMARY | 2023-02-05 23:39 | External Medical Summary | Summary of Care ---
Author [place] [address] Care Team Providers Care Director Clinical Operations Name Role Phone Nimo Stewart MD Primary Care Provider [phone] Reason for Visit * Reason Comments Rheum Follow Up PsA Encounter Details Date Type Department Care Team Description 12/14/2019 Office Visit Rheumatology [address] [place] [address] Nadeen Steiner MD 21 [place] [address] Psoriatic arthritis (HCC)*; Generalized osteoarthritis; Encounter for long-term (current) use of high-risk medication; MGUS (monoclonal gammopathy of unknown significance) Allergies Active Allergy Reactions Severity Noted Date Comments Codeine 09/20/2014 documented as of this encounter (statuses as of 12/14/2019) Medications Medication Sig Dispensed Refills Start Date End Date Status Cholecalciferol (VITAMIN D) 1000 UNIT Capsule 1 daily 0 Active amoxicillin (AMOXIL) 500 MG Capsule For dental procedures 0 10/03/2015 Active amLODIPine (NORVASC) 10 MG Tablet 1 daily 0 07/13/2016 Active Lisinopril 40 MG Tablet 1 tab daily 0 08/27/2016 Active metoprolol tartrate (LOPRESSOR) 100 MG Tablet 1 tab twice daily 0 07/13/2016 Active metFORMIN (GLUCOPHAGE) 500 [...] MOUTH DAILY 90 Cap 3 07/21/2019 Active Ixekizumab (TALTZ) 80 MG/ML SOAJIndications:PSA (psoriatic arthritis) ([facility]) Inject 80 mg under the skin Every Month. 5 Syringe 5 07/24/2019 Active predniSONE (DELTASONE) 5 MG TabletIndications:P soriatic arthritis (HCC) Take 1 Tab by mouth daily. 100 Tab 3 10/05/2019 Active Metoprolol Succinate ER 200 MG TB24 200 mg. 1 tab daily 0 10/13/2019 Activ e TRADJENTA 5 MG Tablet 5 mg. 1 tab daily 0 12/02/2019 Active methylPREDNISolone (MEDROL DOSEPACK) 4 MG TBPKIndications:Pso riatic arthritis ([facility]) follow package directions 21 Tab 0 12/14/2019 Active documented as of this encounter (statuses as of 12/14/2019) Active Problems Problem Noted Date Body mass [...] as of this encounter (statuses as of 12/14/2019) Social History Tobacco Use Types Packs/Day Years Used Date Never Smoker Smokeless Tobacco: Never Used Alcohol Use Drinks/Week oz/Week Comments Yes 1-2 drinks/bam h Sex Assigned at Date Recorded Not on file Job Start Date Occupation Industry Not on file Not on file Not on file Travel History Travel Start Travel End COVID-19 Exposure Response Date Recorded In the last month, have you been in contact with someone who was confirmed or suspected to have Coronavirus / COVID-19? No / Unsure 12/14/2019 1:15 PM EDT documented as of this encounter Last Filed Vital Signs Vital Sign Reading Time Taken Comments Blood Pressure 138/60 12/14/2019 1:45 PM EDT Pulse - - Temperature 37 C (98.6 F) 12/14/2019 1:45 PM EDT Respiratory Rate - - Oxygen Saturation - - Inhaled Oxygen Concentration - - Weight - - Height - - Body Mass Index - - documented in this encounter Patient Instructions * Patient Instructions* Nadeen Steiner MD - 12/14/2019 2:09 PM EDT 1. Continue prednisone and Taltz 2. Take medrol dose wesley as well. 3. Get labs again. documented in this encounter Progress Notes * Nadeen Steiner MD - 12/14/2019 1:52 PM EDT Reason for visit: Follow-up for ongoing evaluation and treatment of psoriaric arthritis. He is accompanied by his who provides some of the history. Last Office/Telemedicine Visit: 04/06/2019. Diagnosis date: Past treatments: steroids, methotrexate, Enbrel, Remicade (1999-August 2016) discontinued due topersistent transaminitis and diagnosis of MGUS, Otezla-loss of efficacy; Cosentyx(12/25- 11/17/18)-loss of efficacy Current regimen: prednisone 5 mg daily, Taltz (11/26- History of present illness: Since the time of his last evaluation, he notes the following: Hands have been bothersome for the past 10 days. Left often worse than right. Intelligence Agent strength has been ok. Hasbeen on prednisone 5 mg daily for several months. Takes Taltz once a month with no issues. No interval infections. Has not taken Tramadol because it causes constipation. Has not taken it regularly for more than 4-5 months. Last dose of tramadol may have been 2 months ago. His psoriasis has been well controlled. His called in August for blood work orders which I did order on 09/05/2019. She reports that they were never mailed to her. 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 Hyperlipidemia E78.5 GERD (gastroesophageal reflux disease) K21.9 Hypertension I10 Psoriatic arthritis ([facility]) L40.50 Diabetes mellitus ([facility]) E11.9 Diabetic neuropathy ([facility]) E11.40 High risk medication use Z79.899 CKD (chronic kidney disease) stage 2, GFR 60-89 ml/min N18.2 Generalized osteoarthritis M15.9 Body mass index (BMI) of 45.0 to 49.9 in adult ([facility]) Z68.42 Past medical history: Reviewed and [...] Current Outpatient Medications Medication Sig Dispense Refill Metoprolol Succinate ER 200 MG TB24 200 mg. 1 tab daily TRADJENTA 5 MG Tablet 5 mg. 1 tab daily predniSONE (DELTASONE) 5 MG Tablet Take 1 Tab by mouth daily. 100 Tab 3 Ixekizumab (TALTZ) 80 MG/ML SOAJ Inject 80 mg under the skin Every Month. 5 Syringe 5 omeprazole (PRILOSEC) 20 MG CPDR TAKE 1 CAPSULE BY MOUTH DAILY 90 Cap 3 glimepiride (AMARYL) 2 MG Tablet 2 [...] Lisinopril 40 MG Tablet 1 tab daily metoprolol tartrate (LOPRESSOR) 100 MG Tablet 1 tab twice daily amoxicillin (AMOXIL) 500 MG Capsule For dental procedures Cholecalciferol (VITAMIN D) 1000 UNIT Capsule 1 daily Examination: Vital signs: BP 138/60 | Temp 98.6 General: He appears well and is in no acute distress. Skin: Small psoriatic papule on left elbow Chest: Clear to ascultation bilaterally with no wheezing, rales, or rhonchi. Heart: Rate regular and rhythm with normal S1 and S2. No murmurs, rubs or gallops. Extremities: No edema. Musculoskeletal: Swollen joints: Right 2nd and 3rd MCP Tender joints: Right 2nd and 3rd MCP, radial aspect of right wrist Diagnostic data reviewed Results for orders placed or performed in visit on 04/10/19 CHEMISTRY-OUTSIDE Result Value Ref Range CREATININE-OUTSIDE LAB 0.98 0.6 - 1.4 MG/DL GFR ESTIMATED-OUTSIDE LAB 75.1 ML/MIN POTASSIUM-OUTSIDE LAB 4.1 3.5 - 5.1 MMOL GLUCOSE-OUTSIDE LAB 113 (A) 70 - 99 MG/DL HOURS FASTING TRIGLYCERIDES-OUTSIDE LAB CHOLESTEROL-OUTSIDE LAB HDL-OUTSIDE LAB CHOL/HDL RATIO-OUTSIDE LAB LDL (CALCULATED)-OUTSIDE LAB LDL (DIRECT MEASURE)-OUTSIDE LAB HEMOGLOBIN, [id number]-[id number] LAB PHOSPHORUS-OUTSIDE LAB PTH-OUTSIDE LAB MICROALBUMIN RATIO-OUTSIDE LAB PROTEIN, UA-OUTSIDE LAB HEMOGLOBIN-OUTSIDE LAB 12.6 (A) 14.0 - 18.0 G/DL CHEMISTRY COMMENT-OUTSIDE LAB Assessment: ICD-10-CM 1. Psoriatic arthritis (HCC) L40.50 2. Generalized osteoarthritis M15.9 3. Encounter for long-term (current) use of high-risk medication Z79.899 4. MGUS (monoclonal gammopathy of unknown significance) D47.2 Mr. Campbell returns today for management of psoriatic arthritis. His inflammatory joint disease isactive. He is finding benefit from Taltz from a skin and joint standpoint. This flare is recent. Did have joint issues prior to a week and half ago. Plan: 1. Will treat flare with Medrol Dosepak. 2. Advised to continue prednisone 5 mg daily and monthly Taltz. 3. Copies of blood work orders provided and advised to get done this week. 4. He was encouraged to contact me with any questions or concerns. 5. Follow Up: Return in about 4 months (around 04/15/2020) for Clinic Visit. | For: Clinic Visit Nadeen Steiner MD PhD Rheumatology CC: Nimo Stewart MD documented in this encounter Plan of Treatment Upcoming Encounters Date Type Specialty Care Team Description 03/28/2020 Pharmacy Pharmacy Medication, [facility], [address] [address] 04/18/2020 Office Visit Rheumatology Nadeen Steiner MD [address] [place] [address] Scheduled Orders Name Type Priority Associated Diagnoses Orde r Schedule CBC/DIFF Lab Routine Psoriatic arthritis (HCC) Encounter for long-term (current) use of high-risk medication Ordered: 12/14/2019 COMPR METAB PANEL Lab Routine Psoriatic arthritis (HCC) Encounter for long-term (current) use of high-risk medication Ordered: 12/14/2019 CRP (INFLAMMATORY MARKER) Lab Routine Psoriatic arthritis (HCC) Encounter for long-term (current) use of high-risk medication Ordered: 12/14/2019 Health Maintenance Due Date Last Done Comments Yearly B-12 1943 DTaP,Tdap,and Td Vaccines (1 - Tdap) 1954 DIABETES-EYE EXAM 1961 DIABETES-FOOT EXAM 1961 DIABETES-HGBA1C EVERY 6 MONTHS 1961 Zoster Vaccines (1 of 2) 1993 Pneumococcal Vaccine: 65+ Ye ars (1 of 2 - PCV13) 2008 COLONOSCOPY-EVERY 5 YRS AGES 18-100 01/04/2014 01/04/2009 *DEPRESSION SCREENING,ANNUAL FOR PTS 12 AND OVER 09/23/2014 *URINE PROTEIN ONCE FOR HTN-DIPSTICK ACCEPTABLE 09/23/2014 Influenza Vaccine (FLU shot) (#1) 2020 MENINGOCOCCAL (MENACTRA/MENVEO) Aged Out No longer eligible [...] on File Type Date Recorded 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
--- OUTSIDE RECORDS SUMMARY | 2023-02-05 23:39 | External Medical Summary | Summary of Care ---
Author Name Unknown Organization [place] [address] Care Team Providers Care Linoleum Tile Layer Name Role Phone Nimo Stewart MD Primary Care Provider [phone] Reason for Visit * Reason Comments Medication Refill Encounter Details Date Type Department Care Team Description 05/06/2020 Pharmacy [facility], [address] [place] [address] Assistance, [place] [facility], [facility] [address] [facility] [address]th [place], [place] [id number] Encounter for medication refill* Allergies Active Allergy Reactions Severity Noted Date Comments Codeine 09/20/2014 documented as of this encounter (statuses as of 05/06/2020) Medications Medication Sig Dispensed Refills Start Date [...] as of this encounter (statuses as of 05/06/2020) Active Problems Problem Noted Date Body mass [...] as of this encounter (statuses as of 05/06/2020) Social History Tobacco Use Types Packs/Day Years Used Date Never Smoker Smokeless Tobacco: Never Used Alcohol Use Drinks/Week oz/Week Comments Yes 1-2 drinks/bam h Sex Assigned at Date Recorded Not on file documented as of this encounter Progress Notes * Destini Francis OSA - 05/06/2020 2:13 PM EST Patient and spouse called in and they received assistance application for XELJANZ. Answered patient's questions and he will put in mail tomorrow, 05/07/2020. Destini Leavitt Boilermaker Apprentice, [facility] 05/06/2020,2:15 PM documented in this encounter Plan of [...] Documents on File Type Date Recorded Patient Cafeteria Associate Expl 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 Advanced Directive
--- OUTSIDE RECORDS SUMMARY | 2023-02-05 23:39 | External Medical Summary | Summary of Care ---
Author Name Unknown Organization [place] [address] Care Team Providers Care Blower Blast Furnace Name Role Phone Nimo Stewart MD Primary Care Provider [phone] Reason for Visit * Reason Comments Medication Refill Encounter Details Date Type Department Care Team Description 05/16/2020 Pharmacy [facility], [address] [place] [address] Assistance, [place] [facility], [facility] [address] [facility] [address]th [place], [place] [phone] Encounter for medication refill* Allergies Active Allergy Reactions Severity Noted Date Comments Codeine 09/20/2014 documented as of this encounter (statuses as of 2020) Medications Medication Sig Dispensed Refills Start Date [...] as of this encounter (statuses as of 2020) Active Problems Problem Noted Date Body mass [...] as of this encounter (statuses as of 2020) Social History Tobacco Use Types Packs/Day Years Used Date Never Smoker Smokeless Tobacco: Never Used Alcohol Use Drinks/Week oz/Week Comments Yes 1-2 drinks/bam h Sex Assigned at Date Recorded Not on file documented as of this encounter Progress Notes * Destini Beltre OSA - 2020 11:28 AM EST Received provider portion and faxed complete application to [place]. Will follow up with the special forces engineer sergeant in about two weeks regarding the status of patient's application. Destini Beltre Pharmacy Registered Nurse Step Down [facility] 2020,11:28 AM documented in this encounter Plan of Treatment Upcoming Encounters Date Type Specialty Care Team Description 05/27/2020 Pharmacy Pharmacy Assistance, [facility] Specialty, [address] [place] [address] 08/29/2020 Office Visit Rheumatology Nadeen Steiner MD 21 [facility] [place] [address] Health Maintenance Due Date [...] Documents on File Type Date Recorded Patient Canvassing Manager Expl 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
--- OUTSIDE RECORDS SUMMARY | 2023-02-05 23:39 | External Medical Summary | Summary of Care ---
Author Name Unknown Organization [place] [address] Care Team Providers Care Greenhouse Laborer Name Role Phone Nimo Stewart MD Primary Care Provider [phone] Reason for Visit * Reason Comments Medication Management Encounter Details Date Type Department Care Team Description 03/28/2020 Pharmacy [facility], [address], [address] [place] [address] Medication, [facility], [address] [place] [address] Encounter for medication refill* Allergies Active Allergy Reactions Severity Noted Date Comments Codeine 09/20/2014 documented as of this encounter (statuses as of 03/28/2020) Medications Medication Sig Dispensed Refills Start Date [...] Ixekizumab (TALTZ) 80 MG/ML SOAJIndications:PSA (psoriatic arthritis) ([facility]) Inject 80 mg under the skin Every [...] (MEDROL DOSEPACK) 4 MG TBPKIndications:Pso riatic arthritis ([facility]) follow package directions 21 Tab 0 12/14/2019 Active documented as of this encounter (statuses as of 03/28/2020) Active Problems Problem Noted Date Body mass [...] as of this encounter (statuses as of 03/28/2020) Social History Tobacco Use Types Packs/Day Years Used Date Never Smoker Smokeless Tobacco: Never Used Alcohol Use Drinks/Week oz/Week Comments Yes 1-2 drinks/bam h Sex Assigned at Date Recorded Not on file documented as of this encounter Progress Notes * Isa Cedeño RPh - 03/28/2020 9:18 AM EDT Appt not needed, pt receiving Taltz from neuropsychiatrist. Isa Cedeño, PharmD Patient Manager Cancer Pharmacist [facility] 9:19 AM, 03/28/2020 documented in this encounter Plan of Treatment Upcoming Encounters Date Type Specialty Care Team Description 04/18/2020 Office Visit Rheumatology Nadeen Steiner MD 21 [place] [id number] Health Maintenance Due Date Last Done Comments Yearly B-12 1945 DIABETES-EYE EXAM 1961 DIABETES-FOOT EXAM 1961 DIABETES-HGBA1C EVERY 6 MONTHS 1961 DTaP,Tdap,and Td Vaccines (1 - [...] Documents on File Type Date Recorded Patient Production Control Technologist Expl 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
--- OUTSIDE RECORDS SUMMARY | 2023-02-05 23:39 | External Medical Summary | Summary of Care ---
Author Name Unknown Organization [facility] [place] [address] Care Team Providers Care Psychometrist Name Role Phone Nimo Stewart MD Primary Care Provider [phone] Reason for Visit * Reason Onset Date Comments Medication Question 04/28/2020 Encounter Details Date Type Department Care Team Description 04/28/2020 [address] [address] Nadeen Steiner MD 21 [facility] [place] [address] Medication Question Allergies Active Allergy Reactions [...] 4:48 PM EST Yes it went to [facility] Specialty pharmacy, they have access [...] Care Team Description 05/27/2020 Pharmacy Pharmacy Assistance, [facility]ty, [address] [address] 08/29/2020 Office Visit Rheumatology Nadeen Steiner MD 21 [place] [address] Health Maintenance Due Date Last [...] Documents on File Type Date Recorded Patient Body Fitter Expl 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
--- OUTSIDE RECORDS SUMMARY | 2023-02-05 23:39 | External Medical Summary | Summary of Care ---
Author Name [facility] [place] [address] Care Team Providers Care Embossing Machine Operator Helper Name Role Phone Nimo Stewart MD Primary Care Provider [phone] [phone] Encounter Details Date Type Department Care Team Description 04/20/2020 Orders Only Rheumatology, [facility] [place] [address] Nadeen Steiner MD [facility] [place] [address] Allergies Active Allergy Reactions Severity Noted Date Comments Codeine 09/20/2014 documented as of this encounter (statuses as of 04/20/2020) Medications Medication Sig Dispensed Refills Start Date [...] mg. 1 tab daily 0 12/02/2019 Active documented as of this encounter (statuses as of 04/20/2020) Active Problems Problem Noted Date Body mass [...] as of this encounter (statuses as of 04/20/2020) Social History Tobacco Use Types Packs/Day Years [...] EXAM 1961 DIABETES-HGBA1C EVERY 6 MONTHS 1961 03/02/2020 DTaP,Tdap,and Td Vaccines (1 - Tdap) 1962 Zoster Vaccines (1 of 2) 1993 Pneumococcal Vaccine: 65+ Ye ars (1 of 1 - PPSV23) 2008 COLONOSCOPY-EVERY 5 YRS AGES 18-100 01/04/2014 01/04/2009 *DEPRESSION SCREENING,ANNUAL FOR PTS 12 AND OVER 09/23/2014 *URINE PROTEIN ONCE FOR HTN-DIPSTICK ACCEPTABLE 09/23/2014 Influenza Vaccine (FLU shot) (#1) 2020 *BASIC METABOLIC PANEL (BMP) FOR HTN YEARLY 04/13/2020 MENINGOCOCCAL (MENACTRA/MENVEO) Aged Out No longer eligible based on patient's age to complete this topic documented as of this encounter Implants Not on filedocumented as of this encounter Procedures Procedure Name Priority Date/Time Associated Diagnosis Comments CHEMISTRY-OUTSIDE Routine 03/02/2020 TSH Routine 03/02/2020 documented in this encounter Results * TSH (03/02/2020) TSH - OUTSIDE LAB 1.470 0.300 - 4.500 UIU/ML OUTSIDE LAB (SEE SCANNED REPORT) Specimen Narrative Performed At OUTSIDE LAB (SEE SCANNED REPORT) * CHEMISTRY-OUTSIDE (03/02/2020) CREATININE-OUTSIDE LAB 1.15 0.6 - 1.4 MG/DL OUTSIDE LAB (SEE SCANNED REPORT) EGFR-OUTSIDE LAB >60 >60 ML/MIN OUTSIDE LAB (SEE SCANNED REPORT) POTASSIUM-OUTSIDE LAB 4.2 3.5 - 5.1 MMOL/L OUTSIDE LAB (SEE SCANNED REPORT) GLUCOSE-OUTSIDE LAB 74 70 - 99 MG/DL OUTSIDE LAB (SEE SCANNED REPORT) HOURS FASTING OUTSIDE LAB (S EE SCANNED REPORT) TRIGLYCERIDES-OUTSIDE LAB 149 0 - 150 MG/DL OUTSIDE LAB (SEE SCANNED REPORT) CHOLESTEROL-OUTSIDE LAB 139 0 - 200 MG/DL OUTSIDE LAB (SEE SCANNED REPORT) HDL-OUTSIDE LAB 35 MG/DL OUTSIDE LAB (SEE SCANNED REPORT) CHOL/HDL RATIO-OUTSIDE LAB OUTSIDE LAB (SEE SCANNED REPORT) LDL (CALCULATED)-OUTSIDE LAB 30 MG/DL OUTSIDE LAB (SEE SCANNED REPORT) LDL (DIRECT MEASURE)-OUTSIDE LAB OUTSIDE LAB (SEE SCANNED REPORT) HEMOGLOBIN, Z4E-DBVECFC LAB 7.1(A) 4.5 - 5.6 % OUTSIDE LAB (SEE SCANNED REPORT) PHOSPHORUS-OUTSIDE LAB OUTSIDE LAB (SEE SCANNED REPORT) PTH-OUTSIDE LAB OUTSIDE LAB (SEE SCANNED REPORT) MICROALBUMIN RATIO-OUTSIDE LAB OUTSIDE LAB (SEE SCANNED REPORT) PROTEIN, UA-OUTSIDE LAB OUTSIDE LAB (SEE SCANNED REPORT) HEMOGLOBIN-OUTSIDE LAB 12.7(A) 14.0 - 18.0 G/DL OUTSIDE LAB (SEE SCANNED REPORT) CHEMISTRY COMMENT-OUTSIDE LAB Comment:SEE SCAN DR ALMANZA: HA1C, MG, LIPID PANEL, TSH, CBCD, CMP, C-REACTIVE PROT OUTSIDE LAB (SEE SCANNED REPORT) Specimen Narrative Performed At OUTSIDE LAB (SEE SCANNED REPORT) documented in this encounter Advance Directives Documents on File Type Date Recorded Patient Floor Coverings Installer Expl 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 Advanced Directive Advanced Directive
--- OUTSIDE RECORDS SUMMARY | 2023-02-05 23:39 | External Medical Summary | Summary of Care ---
Author Name Unknown Organization [place] [address] Care Team Providers Care Occupational Therapy Instructor Name Role Phone Nimo Stewart MD Primary Care Provider [phone] [phone] Reason for Visit * Reason Comments Medication Refill Encounter Details Date Type Department Care Team Description 05/06/2020 Pharmacy [facility], [address] [place] [address] Assistance, [facility], [facility] [address] [place], [place] [id number] Encounter for medication refill* Allergies Active Allergy Reactions Severity Noted Date Comments Codeine 09/20/2014 documented as of this encounter (statuses as of 05/10/2020) Medications Medication Sig Dispensed Refills Start Date [...] as of this encounter (statuses as of 05/10/2020) Active Problems Problem Noted Date Body mass [...] as of this encounter (statuses as of 05/10/2020) Social History Tobacco Use Types Packs/Day Years Used Date Never Smoker Smokeless Tobacco: Never Used Alcohol Use Drinks/Week oz/Week Comments Yes 1-2 drinks/bam h Sex Assigned at Date Recorded Not on file documented as of this encounter Progress Notes * Destini Beltre OSA - 05/10/2020 2:37 PM EST Received pt's portion and saved to shared drive. Will follow up with the doctors office early next week if their portion isn't received before then. Destini Beltre Pharmacy Migration Specialist [facility] 05/10/2020,2:38 PM * Destini Francis OSA - 05/06/2020 2:13 PM EST Patient and spouse called in and they received assistance application for [employer]. Answered patient's questions and he will put in mail tomorrow, 05/07/2020. Destini Leavitt Windmill Mechanic, [facility] 05/06/2020,2:15 PM documented in this encounter Plan of Treatment Upcoming Encounters Date Type Specialty Care Team Description 08/29/2020 Office Visit Rheumatology Nadeen Steiner MD 21 [facility] [place] [address] Health Maintenance Due Date [...] Documents on File Type Date Recorded Patient Licensed Surveyor Expl 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 Advanced Directive
--- OUTSIDE RECORDS SUMMARY | 2023-02-05 23:39 | External Medical Summary | Summary of Care ---
Author Name Unknown [place] [address] Care Team Providers Care Controller Coal Or Ore Name Role Phone Nimo Stewart MD Primary Care Provider [phone] Reason for Visit * Reason Comments Rheum Follow Up recheck Encounter Details Date Type Department Care Team Description 04/18/2020 Office Visit Rheumatology [address] [place] [address] [facility] [place] [address] Psoriatic arthritis (HCC)*; Generalized osteoarthritis; Encounter for long-term (current) use of high-risk medication; MGUS (monoclonal gammopathy of unknown significance) Allergies Active Allergy Reactions Severity Noted Date Comments Codeine 09/20/2014 documented as of this encounter (statuses as of 04/18/2020) Medications Medication Sig Dispensed Refills Start Date [...] traMADol (ULTRAM) 50 MG TabletIndication s:Psoriatic arthritis ([facility]),Acute pain of both shoulders Take 2 Tabs by mouth every 6 hours as needed for Pain. 240 Tab 3 05/05/2018 Active glimepiride (AMARYL) 2 MG Tablet 2 mg. 1 tab twice daily 0 05/29/2018 Active omeprazole (PRILOSEC) 20 MG CPDR TAKE 1 CAPSULE BY MOUTH DAILY 90 Cap 3 07/21/2019 Active predniSONE (DELTASONE) 5 MG TabletIndication s:Psoriatic arthritis ([facility]) Take 1 Tab by mouth daily. 100 Tab 3 10/05/2019 Active Metoprolol Succinate ER 200 MG TB24 200 mg. 1 tab daily 0 10/13/2019 Active TRADJENTA 5 MG Tablet 5 mg. 1 tab daily 0 12/02/2019 Active amoxicillin (AMOXIL) 500 MG Capsule For dental procedures 0 10/03/2015 04/18/2020 Discontinued (Medication List Clean Up) metoprolol tartrate (LOPRESSOR) 100 MG Tablet 1 tab twice daily 0 07/13/2016 04/18/2020 Discontinued (Medication List Clean Up) Ixekizumab (TALTZ) 80 MG/ML SOAJIndications: PSA (psoriatic arthritis) ([facility]) Inject 80 mg under the skin Every Month. 5 Syringe 5 07/24/2019 04/18/2020 Discontinued (Medication/ Dose Changed) methylPREDNISolo ne (MEDROL DOSEPACK) 4 MG TBPKIndications: Psoriatic arthritis ([facility]) follow package directions 21 Tab 0 12/14/2019 04/18/2020 Discontinued (Medication List Clean Up) documented as of this encounter (statuses as of 04/18/2020) Active Problems Problem Noted Date Body mass [...] as of this encounter (statuses as of 04/18/2020) Social History Tobacco Use Types Packs/Day Years Used Date Never Smoker Smokeless Tobacco: Never Used Alcohol Use Drinks/Week oz/Week Comments Yes 1-2 drinks/bam h Sex Assigned at Date Recorded Not on file documented as of this encounter Last Filed Vital Signs Vital Sign Reading Time Taken Comments Blood Pressure 142/70 04/18/2020 10:05 AM EST Pulse - - Temperature 36.8 C (98.2 F) 04/18/2020 10:[address] Respiratory Rate - - Oxygen Saturation - - Inhaled Oxygen Concentration - - Weight 133.4 kg (294 lb) 04/18/2020 10:05 AM EST Height - - Body Mass Index 47.45 04/06/2019 1:19 PM EDT documented in this encounter Patient Instructions * Patient Instructions* Nadeen Steiner MD - 04/18/2020 10:30 AM EST 1. Prior authorization for Xeljanz XR has been started. If you cannot start it this week, then take1 more dose of Taltz before stopping Taltz. 2. Agree with getting your second Shingrix vaccine. 3. There is a risk of this medicine increasing your cholesterol and risk of blood clots. We should recheck your cholesterol in 6 months from starting Xeljanz Xr. Tofacitinib extended-release tablets Brand Name: Xeljanz XR What is this medicine? TOFACITINIB (TOE fa SYE it nib) is a medicine that works on the immune system. This medicine is used to treat rheumatoid arthritis and psoriatic arthritis. How should I use this medicine? Take this medicine by mouth with a glass of water. Follow the directions on the prescription label.Do not cut, crush or chew this medicine. You can take it with or without food. If it upsets your stomach, take it with food. Take your medicine at regular intervals. Do not take it more often than directed. Do not stop taking except on your doctor's advice. A special MedGuide will be given to you by the pharmacist with each prescription and refill. Be sure to read this information carefully each time. Talk to your smoke eater regarding the use of this medicine in children. Special care may be needed. What side effects may I notice from receiving this medicine? Side effects that you should report to your doctor or health chiropractic care as soon as possible: allergic reactions like skin rash, itching or hives, swelling of the face, lips, or tongue breathing problems dizziness signs and symptoms of a blood clot such as chest pain; shortness of breath; pain, swelling, or warmth in the leg signs of infection - fever or chills, cough, sore throat, pain or trouble passing urine signs and symptoms of liver injury like dark yellow or brown urine; general ill feeling or flu-like symptoms; light-colored stools; loss of appetite; nausea; right upper belly pain; unusually weakor tired; yellowing of the eyes or skin stomach pain or a sudden change in bowel habits unusually weak or tired Side effects that usually do not require medical attention (report to your doctor or health chiropractic care if they continue or are bothersome): diarrhea headache muscle aches runny nose sinus trouble What may interact with this medicine? Do not take this medicine with any of the following medications: baricitinib This medicine may also interact with the following medications: antiviral medicines for hepatitis, HIV or AIDS azathioprine, cyclosporine, or other immunosuppressive drugs biologic medicines such as abatacept, adalimumab, anakinra, certolizumab, etanercept, golimumab,infliximab, rituximab, secukinumab, tocilizumab, ustekinumab certain medicines for fungal infections like fluconazole, itraconazole, ketoconazole, voriconazole certain medicines for seizures like carbamazepine, phenobarbital, phenytoin rifampin supplements, such as Tali's wort live vaccines What if I miss a dose? If you miss a dose, take it as soon as you can. If it is almost time for your next dose, take only that dose. Do not take double or extra doses. Where should I keep my medicine? Keep out of the reach of children. Store between 20 and 25 degrees C (68 and 77 degrees F). Throw away any unused medicine after the expiration date. What should I tell my health care provider before I take this medicine? They need to know if you have any of these conditions: cancer diabetes heart disease high blood pressure high cholesterol HIV or AIDS immune system problems infection (especially a virus infection such as hepatitis B, chickenpox, cold sores, or herpes) kidney disease liver disease low blood counts, like low white cell, platelet, or red cell counts lung or breathing disease, like asthma organ transplant stomach or intestine problems tuberculosis, a positive skin test for tuberculosis, or have recently been in close contact withsomeone who has tuberculosis an unusual or allergic reaction to tofacitinib, other medicines, foods, dyes, or preservatives or trying to get breast-feeding What should I watch for while using this medicine? Tell your doctor or healthcare professional if your symptoms do not start to get better or if they get worse. The tablet shell of this medicine does not dissolve. This is normal. The tablet shell may appear whole in the stool. This is not a cause for concern. Avoid taking products that contain aspirin, acetaminophen, ibuprofen, naproxen, or ketoprofen unless instructed by your doctor. These medicines may hide a fever. Call your doctor or health chiropractic care for advice if you get a fever, chills or sore throat, or other symptoms of a cold or flu. Do not treat yourself. This drug decreases your body's ability to fight infections. Try to avoid being around people who are sick. NOTE:This sheet is a summary. It may not cover all possible information. If you have questions about this medicine, talk to your doctor, pharmacist, or health care provider. Copyright 2019 Elsevier documented in this encounter Progress Notes * Nadeen Steiner MD - 04/18/2020 10:06 AM EST Reason for visit: Follow-up for ongoing evaluation and treatment of psoriatic arthritis. Last Office/Telemedicine Visit: 12/14/2019. Diagnosis date: Past treatments: steroids, methotrexate, Enbrel, Remicade (1999-August 2016) discontinued due topersistent transaminitis and diagnosis of MGUS, Otezla-loss of efficacy; Cosentyx(12/25- 11/17/18) Current regimen: prednisone 5 mg daily, Taltz (11/26- History of present illness: Since the time of his last evaluation, he notes the following: His lefthand has been bothersome for about a day. He could hardly get hardly get his shoes on. Right hand was bothersome at some point. No other flare ups since December. Only place he has psoriasis is his rightelbow. He notes that the medrol dose wesley was not helpful. notes that the hand flare up has been present for about 7-8 days. He doesn't feel as if Taltz is helping now. notes that he complains of burning when he administers the drug. He does not let it sit and get to room temperature. Most recent labs from February showed no evidence of medication toxicity. He denies any interval infections, hospitalizations, or surgeries. 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 Hyperlipidemia E78.5 GERD (gastroesophageal reflux disease) K21.9 Hypertension I10 Psoriatic arthritis ([facility]) L40.50 Diabetes mellitus ([facility]) E11.9 Diabetic neuropathy ([facility]) E11.40 High risk medication use Z79.899 CKD (chronic kidney disease) stage 2, GFR 60-89 ml/min N18.2 Generalized osteoarthritis M15.9 Body mass index (BMI) of 45.0 to 49.9 in adult ([facility]) Z68.42 Past medical history: Reviewed [...] Capsule 1 daily Examination: Vital signs: BP 142/70 | Temp 36.8 C (98.2 F) (Tympanic) | Wt 133.4 kg (294 lb) | BMI 47.45 kg/m | BSA 2.49 m General: He appears well and is in no acute distress. Skin: Small psoriatic plaque on right elbow Chest: Clear to ascultation bilaterally with no wheezing, rales, or rhonchi. Heart: Rate regular and rhythm with normal S1 and S2. No murmurs, rubs or gallops. Extremities: No edema. Musculoskeletal: Swollen joints: Bilateral 3rd MCP, left wrist Tender joints: Bilateral 2nd and 3rd MCP, left wrist Diagnostic data reviewed Outside labs from 03/02/20 Assessment: ICD-10-CM 1. Psoriatic arthritis (HCC) L40.50 2. Generalized osteoarthritis M15.9 3. Encounter for long-term (current) use of high-risk medication Z79.899 4. MGUS (monoclonal gammopathy of unknown significance) D47.2 Mr. Campbell returns today for management of psoriatic arthritis. He has lost efficacy to Taltz. Unfortunately Taltz is not yet approved for dosing every 2 weeks. He did not find benefit from the Medrol Dosepak prescribed at the last appointment so will not give it again. Discussed the risks and benefits of Xeljanz XR and Tremfya. He is interested in Xeljanz XR. Reviewed the rare risk of reactivation of shingles, elevated cholesterol, and risk of DVT/PE. He is set to receive his 2nd Shingrix vaccine dose. Plan: 1. Discussed the above in detail with the patient and his . All questions were answered. 2. Will stop Taltz and try Xeljanz XR. Prior authorization for Xeljanz XR initiated. Educational handout on Xeljanz XR provided. 3. No testing needed today. 4. He was encouraged to contact me with any questions or concerns. 5. Follow Up: Return in about 4 months (around 08/16/2020) for Clinic Visit. | For: Clinic Visit Nadeen Steiner MD PhD Rheumatology CC: Nimo Stewart MD documented in this encounter Nursing Notes * Van Smith LPN - 04/18/2020 10:05 AM EST Chief Complaint Patient presents with Rheum Follow Up recheck documented in this encounter Plan of Treatment Upcoming Encounters Date Type Specialty Care Team Description 08/29/2020 Office Visit Rheumatology Nadeen Steiner MD 21 [facility] [place] [address] Health Maintenance Due Date Last Done [...] Documents on File Type Date Recorded Patient B2B Appointment Setter Expl 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 Advanced Directive Advanced Directive"
--- OUTSIDE RECORDS SUMMARY | 2023-02-05 23:39 | External Medical Summary | Summary of Care ---
Author [place] [address] Care Team Providers Care Assistant Community Director Name Role Phone Nimo Stewart MD Primary Care Provider [phone] [phone] Reason for Visit * Reason Onset Date Comments Precert Approved 04/18/2020 Xeljanz XR x Encounter Details Date Type Department Care Team Description 04/18/2020 [address] [address] Nadeen Steiner MD 21 [facility] [place] [address] Precert Approved (Xeljanz XR x) Allergies Active Allergy Reactions Severity Noted Date Comments Codeine 09/20/2014 documented as of this encounter (statuses as of 04/26/2020) Medications Medication Sig Dispensed Refills Start Date [...] as of this encounter (statuses as of 04/26/2020) Active Problems Problem Noted Date Body mass [...] as of this encounter (statuses as of 04/26/2020) Social History Tobacco Use Types Packs/Day Years [...] date: 04/21/2021 Dx Code(s): L40.50 Specialty Pharmacy: [facility] Rx Insurance Info: [employer] * Telephone Encounter - Cuca Segura LPN - 04/20/2020 11:46 AM EST Please auth, thx * Telephone Encounter - Nadeen Steiner MD - 04/18/2020 10:26 AM EST Rheumatology Pre-Certification Request Rheumatology [place], Please submit pre-cert/affordability for the following: If [...] Office Visit Rheumatology Nadeen Steiner MD 21 [facility] [place] [address] [phone] Health Maintenance Due Date Last Done Comments [...] Documents on File Type Date Recorded Patient Personnel Quality Assurance Auditor Expl 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 Advanced Directive Advanced Directive
--- OUTSIDE RECORDS SUMMARY | 2023-02-05 23:39 | External Medical Summary | Summary of Care ---
Author Name Unknown Organization [place] [address] Care Team Providers Care General Agent Name Role Phone Nimo Stewart MD Primary Care Provider [phone] Reason for Visit * Reason Comments Medication Refill Encounter Details Date Type Department Care Team Description 04/27/2020 Pharmacy [facility], [address] [place] [address] Assistance, [place] [facility], [facility] [address] [facility] [address] [place], [place] [id number] Encounter for medication refill* Allergies Active Allergy Reactions Severity Noted Date Comments Codeine 09/20/2014 documented as of this encounter (statuses as of 05/02/2020) Medications Medication Sig Dispensed Refills Start Date [...] as of this encounter (statuses as of 05/02/2020) Active Problems Problem Noted Date Body mass [...] as of this encounter (statuses as of 05/02/2020) Social History Tobacco Use Types Packs/Day Years Used Date Never Smoker Smokeless Tobacco: Never Used Alcohol Use Drinks/Week oz/Week Comments Yes 1-2 drinks/bam h Sex Assigned at Date Recorded Not on file documented as of this encounter Progress Notes * Destini Francis OSA - 05/02/2020 12:39 PM EST Called and informed patient [facility] received patient's prescription for XELJANZ. Patient has a co-pay of $234.77. Patient is seeking assistance with this medication and will not qualify for PACE/PACENET and 340B due to income. There are no foundations available at this time for patient's diagnosis. Mailed patient an application for free drug through fiberglass fabricator program. Destini Leavitt Housekeeping Aid, [facility] 05/02/2020,12:41 PM documented in this encounter Plan of Treatment Upcoming Encounters Date Type Specialty Care Team Description 05/06/2020 Pharmacy Pharmacy Assistance, [facility] Special[facility], [address] [place] [address] 08/29/2020 Office Visit Rheumatology Nadeen Steiner MD 21 [place] [address] Health Maintenance Due Date Last Done [...] Documents on File Type Date Recorded Patient Community Artist Expl 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 Advanced Directive
--- OUTSIDE RECORDS SUMMARY | 2023-02-05 23:39 | External Medical Summary | Summary of Care ---
Author Name Unknown Organization [facility] [place] [address] Care Team Providers Care Vacuum Metalizer Operator Name Role Phone Nimo Stewart MD Primary Care Provider [phone] Reason for Visit * Reason Onset Date Comments Precert Approved 04/18/2020 Xeljanz XR x Encounter Details Date Type Department Care Team Description 04/18/2020 Telephone Rheumatology [address] [place] [address] Nadeen Steiner MD 21 [facility] [place] [address] Precert Approved (Xeljanz XR x) Allergies Active Allergy Reactions Severity Noted Date Comments Codeine 09/20/2014 documented as of this encounter (statuses as of 05/11/2020) Medications Medication Sig Dispensed Refills Start Date [...] as of this encounter (statuses as of 05/11/2020) Active Problems Problem Noted Date Body mass [...] as of this encounter (statuses as of 05/11/2020) Social History Tobacco Use Types Packs/Day Years Used Date Never Smoker Smokeless Tobacco: Never Used Alcohol Use Drinks/Week oz/Week Comments Yes 1-2 drinks/bam h Sex Assigned at Date Recorded Not on file documented as of this encounter Miscellaneous Notes * Telephone Encounter - Van Smith LPN - 05/11/2020 7:55 AM EST Received form for [employer] assistance, completed faxed to [phone] * Telephone Encounter - Nadeen Steiner MD - 04/25/2020 5:29 PM EST Order signed * Telephone Encounter - Cuca Segura LPN - 04/25/2020 4:01 PM EST Drug Name: XELJANZ XR Valid auth start date: 02/21/2020 Valid auth end date: 04/21/2021 Dx Code(s): L40.50 Specialty Pharmacy: [facility] Specialty Rx Rx Insurance Info: [employer] * Telephone Encounter - Cuca Segura LPN - 04/20/2020 11:46 AM EST Please auth, thx * Telephone Encounter - Nadeen Steiner MD - 04/18/2020 10:26 AM EST Rheumatology Pre-Certification Request Rheumatology [place], Please submit pre-cert/affordability for the following: If [...] Encounters Date Type Specialty Care Team Description 05/16/2020 Pharmacy Pharmacy Assistance, [facility] Specialty, [address] [place] [address] [phone] 08/29/2020 Office Visit Rheumatology Nadeen Steiner MD [address] [place], [place] [address] [address] Health Maintenance Due Date Last [...] Documents on File Type Date Recorded Patient Brazer Controlled Atmospheric Furnace Expl 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 Advanced Directive Advanced Directive
--- OUTSIDE RECORDS SUMMARY | 2023-02-05 23:39 | External Medical Summary | Summary of Care ---
Author Name Unknown Organization [place] [address] Care Team Providers Care Securities Settlement Processor Name Role Phone Nimo Stewart MD Primary Care Provider [phone] Reason for Visit * Reason Comments Medication Refill Encounter Details Date Type Department Care Team Description 05/27/2020 Pharmacy [facility], [address]th [place] [address] Assistance, [place] Specialty, [facility] [address] [facility] [address]th [place], [place] [id number] Encounter for medication refill* Allergies Active Allergy [...] this encounter Progress Notes * Destini Beltre LIDYA - 05/30/2020 2:00 PM EST Call placed to [facility] regarding the status of patient's application. Per rep at [facility], the application is still pending. Call placed to patient and informed his that the application is still in progress. Will follow up in about a week regarding the status of the application. Destini Beltre Pharmacy Environmental Analyst [facility] Pharm[facility] 05/30/2020,2:06 PM documented in this encounter Plan of Treatment Upcoming Encounters Date Type Specialty Care Team Description 08/29/2020 Office Visit Rheumatology Nadeen Steiner MD 21 [facility] [place] [address] Health Maintenance Due Date Last Done [...] Documents on File Type Date Recorded Patient Curb Builder Expl 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 Advanced Directive
--- OUTSIDE RECORDS SUMMARY | 2023-02-05 23:39 | External Medical Summary | Summary of Care ---
Author Name Unknown Organization [facility] [place] [address] Care Team Providers Care Sap Abap Developer Name Role Phone Nimo Stewart MD Primary Care Provider [phone] Reason for Visit * Reason Onset Date Comments Medication Question 04/28/2020 Encounter Details Date Type Department Care Team Description 04/28/2020 [address] [address] Nadeen Steiner MD 21 [place] [address] Medication Question Allergies Active Allergy Reactions Severity Noted Date Comments Codeine 09/20/2014 documented as of this encounter (statuses as of 04/28/2020) Medications Medication Sig Dispensed Refills Start Date [...] as of this encounter (statuses as of 04/28/2020) Active Problems Problem Noted Date Body mass [...] as of this encounter (statuses as of 04/28/2020) Social History Tobacco Use Types Packs/Day Years Used Date Never Smoker Smokeless Tobacco: Never Used Alcohol Use Drinks/Week oz/Week Comments Yes 1-2 drinks/bam h Sex Assigned at Date Recorded Not on file documented as of this encounter Miscellaneous Notes * Telephone Encounter - Cuca Segura LPN - 04/28/2020 4:48 PM EST Yes it went to [facility] Specialty pharmacy, they have access to [...] Office Visit Rheumatology Nadeen Steiner MD 21 [facility] [place] [address] Health Maintenance Due [...] Documents on File Type Date Recorded Patient Producer Expl 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
--- OUTSIDE RECORDS SUMMARY | 2023-02-05 23:39 | External Medical Summary | Summary of Care ---
Author Name Unknown Organization [facility] [place] [address] Care Team Providers Care Archery Instructor Name Role Phone Nimo Stewart MD Primary Care Provider [phone] Reason for Visit * Reason Onset Date Comments Precert Approved 04/18/2020 Xeljanz XR x Encounter Details Date Type Department Care Team Description 04/18/2020 Telephone Rheumatology [address] [place] [address] Nadeen Steiner MD 21 [place] [address] Precert Approved (Xeljanz XR x) Allergies [...] date: 04/21/2021 Dx Code(s): L40.50 Specialty Pharmacy: [facility] Specialty Rx Rx Insurance Info: [employer]ARK * Telephone Encounter - Cuca Segura LPN - 04/20/2020 11:46 AM EST Please auth, thx * Telephone Encounter - Nadeen Steiner MD - 04/18/2020 10:26 AM EST Rheumatology Pre-Certification Request Rheumatology [place], Please submit pre-cert/affordability for the following: If [...] Office Visit Rheumatology Nadeen Steiner MD 21 [place] [address] [phone] Health Maintenance Due Date Last Done Comments [...] Documents on File Type Date Recorded 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
--- OUTSIDE RECORDS SUMMARY | 2023-02-05 23:40 | External Medical Summary | Summary of Care ---
Author Name Unknown Organization [place] [address] Care Team Providers Care Lifestyle Consultant Name Role Phone Nimo Stewart MD Primary Care Provider [phone] Reason for Visit * Reason Comments Medication Refill Encounter Details Date Type Department Care Team Description 06/29/2019 Pharmacy [facility] [address] [facility], 4th Floor [place], [place] [id number] Medication, [facility]tm Specialty Refill, [facility] [address] [facility] [address] [place] [address] Encounter for medication refill* Allergies Active Allergy Reactions Severity Noted Date Comments Codeine 09/20/2014 documented as of this encounter (statuses as of 06/30/2019) Medications Medication Sig Dispensed Refills Start Date [...] CAPSULE BY MOUTH DAILY 90 Cap 3 07/23/2018 Active Ixekizumab (TALTZ) 80 MG/ML SOAJIndications:PSA (psoriatic arthritis) ([facility]) Inject 80 mg under the skin Every Month. 5 Syringe 5 11/19/2018 Active predniSONE (DELTASONE) 5 MG TabletIndications:P soriatic arthritis (HCC) 7.5 mg daily from 04/06-04/18/19 then 5 mg daily 100 Tab 1 04/06/2019 Active documented as of this encounter (statuses as of 06/30/2019) Active Problems Problem Noted Date Body mass [...] as of this encounter (statuses as of 06/30/2019) Social History Tobacco Use Types Packs/Day Years Used Date Never Smoker Smokeless Tobacco: Never Used Alcohol Use Drinks/Week oz/Week Comments Yes 1-2 drinks/bam h Sex Assigned at Date Recorded Not on file Job Start Date Occupation Industry Not on file Not on file Not on file Travel History Travel Start Travel End documented as of this encounter Progress Notes * Daily Gunderson OSA - 06/30/2019 11:17 AM EST Rescheduled appt Daily G[place] Hot Iron Worker [facility] 06/30/2019,11:17 AM documented in this encounter Plan of Treatment Upcoming Encounters Date Type Specialty Care Team Description 07/08/2019 Pharmacy Pharmacy Medication, [facility] Special[facility] Refill, [facility] [address] [address] [phone] 09/09/2019 Office Visit Rheumatology Nadeen Steiner MD 21 [facility] [place] [address] 03/28/2020 Pharmacy Pharmacy Medication, [facility], [address] [address] [phone] Health Maintenance Due Date Last Done Comments [...] ACCEPTABLE 09/23/2014 Influenza Vaccine (FLU shot) (#1) 2019 MENINGOCOCCAL (MENACTRA/MENVEO) Aged Out No longer eligible based on patient's age to complete this topic documented as of this encounter Implants Not on filedocumented as of this encounter Visit Diagnoses Diagnosis Encounter for medication refill- Primary Issue of repeat prescriptions documented in this encounter Advance Directives Documents on File Type Date Recorded Patient Cost Estimating Clerk Expl 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
--- OUTSIDE RECORDS SUMMARY | 2023-02-05 23:40 | External Medical Summary | Summary of Care ---
Author Name Unknown Organization [place] [address] Care Team Providers Care Crusher Machine Operator Name Role Phone Nimo Stewart MD Primary Care Provider [phone] Reason for Visit * Reason Comments Medication Refill Encounter Details Date Type Department Care Team Description 07/10/2019 Pharmacy [facility] [address] [facility], 4th Floor [place], [place] [id number] Assistance, [facility] Specialty, [facility] [address] [facility] [address]th [place] [address] Encounter for medication refill* Allergies Active Allergy Reactions Severity Noted Date Comments Codeine 09/20/2014 documented as of this encounter (statuses as of 07/10/2019) Medications Medication Sig Dispensed Refills Start Date [...] Ixekizumab (TALTZ) 80 MG/ML SOAJIndications:PSA (psoriatic arthritis) ([facility]) Inject 80 mg under the skin Every Month. 5 Syringe 5 11/19/2018 Active predniSONE (DELTASONE) 5 MG TabletIndications:P soriatic arthritis (HCC) 7.5 mg daily from 04/06-04/18/19 then 5 mg daily 100 Tab 1 04/06/2019 Active documented as of this encounter (statuses as of 07/10/2019) Active Problems Problem Noted Date Body mass [...] as of this encounter (statuses as of 07/10/2019) Social History Tobacco Use Types Packs/Day Years Used Date Never Smoker Smokeless Tobacco: Never Used Alcohol Use Drinks/Week oz/Week Comments Yes 1-2 drinks/bam h Sex Assigned at Date Recorded Not on file Job Start Date Occupation Industry Not on file Not on file Not on file Travel History Travel Start Travel End documented as of this encounter Progress Notes * Chelo Kang OSA - 07/10/2019 11:37 AM EST I called and spoke with the pt. He stated that he received the [employer] assistance application but didnot get a chance to complete it yet. He will call us back with any questions. I will keep an eye out for it in the mail. Will continue to follow up. Chelo Correa Pharmacy Board Turner [facility] 07/10/2019,11:45 AM documented in this encounter Plan of Treatment Upcoming Encounters Date Type Specialty Care Team Description 07/23/2019 Pharmacy Pharmacy Assistance, [facility], [address] [address] [phone] 07/31/2019 Pharmacy Pharmacy Medication, [facility] Specialty Refill, [address] [address] [phone] 09/09/2019 Office Visit Rheumatology Nadeen Steiner MD 21 [place], [place] [address] 03/28/2020 Pharmacy Pharmacy Medication, [facility], [address] [address] [phone] Health Maintenance Due Date Last Done Comments [...] Documents on File Type Date Recorded 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
--- OUTSIDE RECORDS SUMMARY | 2023-02-05 23:40 | External Medical Summary | Summary of Care ---
Author Name Unknown Organization [place] [address] Care Team Providers Care Director General Name Role Phone Nimo Stewart MD Primary Care Provider [phone] Reason for Visit * Reason Comments Medication Refill Encounter Details Date Type Department Care Team Description 07/24/2019 Refill Rheumatology [place] [address] [facility] [place] [address] Rajendra Crowley MD [address] [facility] [place] [address] PSA (psoriatic arthritis) (HCC) Allergies Active Allergy Reactions Severity Noted Date Comments Codeine 09/20/2014 documented as of this encounter (statuses as of 07/24/2019) Medications Medication Sig Dispensed Refills Start Date [...] 0 05/29/2018 Active predniSONE (DELTASONE) 5 MG TabletIndication s:Psoriatic arthritis (HCC) 7.5 mg daily from 04/06-04/18/19 then 5 mg daily 100 Tab 1 04/06/2019 Active omeprazole (PRILOSEC) 20 MG CPDR TAKE 1 CAPSULE BY MOUTH DAILY 90 Cap 3 07/21/2019 Active Ixekizumab (TALTZ) 80 MG/ML SOAJIndications: PSA (psoriatic arthritis) ([facility]) Inject 80 mg under the skin Every Month. 5 Syringe 5 07/24/2019 Active Ixekizumab (TALTZ) 80 MG/ML SOAJIndications: PSA (psoriatic arthritis) ([facility]) Inject 80 mg under the skin Every Month. 5 Syringe 5 11/19/2018 07/24/2019 Discontinued (Refill) documented as of this encounter (statuses as of 07/24/2019) Active Problems Problem Noted Date Body mass [...] as of this encounter (statuses as of 07/24/2019) Social History Tobacco Use Types Packs/Day Years Used Date Never Smoker Smokeless Tobacco: Never Used Alcohol Use Drinks/Week oz/Week Comments Yes 1-2 drinks/bam h Sex Assigned at Date Recorded Not on file Job Start Date Occupation Industry Not on file Not on file Not on file Travel History Travel Start Travel End documented as of this encounter Miscellaneous Notes * Telephone Encounter - Nadeen Steiner MD - 07/24/2019 12:58 PM EST Signed Prescriptions: Disp Refills Ixekizumab (TALTZ) 80 MG/ML SOAJ 5 Syri*5 Sig: Inject 80 mg under the skin Every Month. Authorizing Provider: NADEEN STEINER * Telephone Encounter - Van Smith LPN - 07/24/2019 11:13 AM EST Pharmacy requesting hard copy be faxed to [phone] documented in this encounter Plan of Treatment Upcoming Encounters Date Type Specialty Care Team Description 07/27/2019 Pharmacy Pharmacy Assistance, [facility], [address] [address] [phone] 07/31/2019 Pharmacy Pharmacy Medication, [facility] Refill, [address] [address] [phone] 09/09/2019 Office Visit Rheumatology [place] [address] 03/28/2020 Pharmacy Pharmacy Medication, [facility], [address] [address] [phone] Health Maintenance Due Date Last Done Comments [...] as of this encounter Visit Diagnoses Diagnosis PSA (psoriatic arthritis) (HCC) Psoriatic arthropathy documented in this encounter Advance Directives Documents on File Type Date Recorded Patient Client Service Executive Expl 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
--- OUTSIDE RECORDS SUMMARY | 2023-02-05 23:40 | External Medical Summary | Summary of Care ---
Author Name Unknown Organization [place] [address] Care Team Providers Care Site Lead Name Role Phone Nimo Stewart MD Primary Care Provider [phone] Reason for Visit * Reason Comments Medication Refill Encounter Details Date Type Department Care Team Description 08/27/2019 Pharmacy [facility], [address]th [place] [address] Medication, [place] Specialty Refill, [address] [facility] [place] [phone] Encounter for medication refill* Allergies Active Allergy Reactions Severity Noted Date Comments Codeine 09/20/2014 documented as of this encounter (statuses as of 09/01/2019) Medications Medication Sig Dispensed Refills Start Date [...] 0 05/29/2018 Active predniSONE (DELTASONE) 5 MG TabletIndications:P soriatic arthritis (HCC) 7.5 mg daily from 04/06-04/18/19 then 5 mg daily 100 Tab 1 04/06/2019 Active omeprazole (PRILOSEC) 20 MG CPDR TAKE 1 CAPSULE BY MOUTH DAILY 90 Cap 3 07/21/2019 Active Ixekizumab (TALTZ) 80 MG/ML SOAJIndications:PSA (psoriatic arthritis) ([facility]) Inject 80 mg under the skin Every Month. 5 Syringe 5 07/24/2019 Active documented as of this encounter (statuses as of 09/01/2019) Active Problems Problem Noted Date Body mass [...] as of this encounter (statuses as of 09/01/2019) Social History Tobacco Use Types Packs/Day Years Used Date Never Smoker Smokeless Tobacco: Never Used Alcohol Use Drinks/Week oz/Week Comments Yes 1-2 drinks/bam h Sex Assigned at Date Recorded Not on file Job Start Date Occupation Industry Not on file Not on file Not on file Travel History Travel Start Travel End documented as of this encounter Progress Notes * Ana Noble PHARM Tech - 09/01/2019 4:32 PM EDT Spoke to patient. [place] is currently receiving Taltz from the [facility]. . 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
--- OUTSIDE RECORDS SUMMARY | 2023-02-05 23:40 | External Medical Summary | Summary of Care ---
Author Name Unknown Organization [place] [address] Care Team Providers Care Cafeteria Or Lunchroom Checker Name Role Phone Nimo Stewart MD Primary Care Provider [phone] Reason for Visit * Reason Comments Medication Refill Encounter Details Date Type Department Care Team Description 08/10/2019 Pharmacy [facility] [address] [facility], 4th Floor [place], [place] [id number] Assistance, [facility] Specialty, [facility] [address] [facility] [address] [place] [address] Encounter for medication refill* Allergies Active Allergy Reactions Severity Noted Date Comments Codeine 09/20/2014 documented as of this encounter (statuses as of 08/11/2019) Medications Medication Sig Dispensed Refills Start Date [...] Ixekizumab (TALTZ) 80 MG/ML SOAJIndications:PSA (psoriatic arthritis) ([facility]) Inject 80 mg under the skin Every Month. 5 Syringe 5 07/24/2019 Active documented as of this encounter (statuses as of 08/11/2019) Active Problems Problem Noted Date Body mass [...] as of this encounter (statuses as of 08/11/2019) Social History Tobacco Use Types Packs/Day Years [...] Progress Notes * Chelo Kang OSA - 08/11/2019 4:13 PM EST Incoming call from the pts . She will call [facility] to [facility] Chelo Correa [facility] Draper[facility] 08/11/2019,4:13 PM * Chelo Kang OSA - 08/10/2019 10:46 AM EST I called and spoke with a Rep at [facility]. The pt has been approved for Taltz from 08/03/19-06/09/20. Next, I called the pt and LMOM to make the pt aware of the same. The pt can call [facility] [phone] to set up delivery. I will continue to follow up. Chelo Correa Pharmacy Drapery Operator [facility] Specialty RX 08/10/2019,10:55 AM documented in this encounter Plan of Treatment Upcoming Encounters Date Type Specialty Care Team Description 08/24/2019 Pharmacy Pharmacy Assistance, [facility], [address] [address] [phone] 08/27/2019 Pharmacy Pharmacy Medication, [facility] Refill, [address] [address] [phone] 09/09/2019 Office Visit Rheumatology Nadeen Steiner MD 21 [place] [address] [phone] 03/28/2020 Pharmacy Pharmacy Medication, [facility], [address] [address] [phone] Health Maintenance Due Date Last Done Comments [...] Documents on File Type Date Recorded 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
--- OUTSIDE RECORDS SUMMARY | 2023-02-05 23:40 | External Medical Summary | Summary of Care ---
Author Name Unknown Organization [place] [address] Care Team Providers Care Pit Operator Name Role Phone Nimo Stewart MD Primary Care Provider [phone] [phone] Reason for Visit * Reason Comments Medication Refill Encounter Details Date Type Department Care Team Description 07/08/2019 Pharmacy [facility] [address] [facility], 4th [place] [address] Medication, [facility] Refill, [facility] [address] [facility] [address]th [place] [address] Encounter for medication refill* Allergies Active Allergy Reactions Severity Noted Date Comments Codeine 09/20/2014 documented as of this encounter (statuses as of 07/06/2019) Medications Medication Sig Dispensed Refills Start Date [...] Ixekizumab (TALTZ) 80 MG/ML SOAJIndications:PSA (psoriatic arthritis) ([facility]) Inject 80 mg under the skin Every Month. 5 Syringe 5 11/19/2018 Active predniSONE (DELTASONE) 5 MG TabletIndications:P soriatic arthritis (HCC) 7.5 mg daily from 04/06-04/18/19 then 5 mg daily 100 Tab 1 04/06/2019 Active documented as of this encounter (statuses as of 07/06/2019) Active Problems Problem Noted Date Body mass [...] as of this encounter (statuses as of 07/06/2019) Social History Tobacco Use Types Packs/Day Years [...] Progress Notes * Destini Francis OSA - 07/06/2019 11:53 AM EST [facility] REFILL CALL NOTE Sarwat Campbell [id number] Patient is a 74 year old male on the schedule today for a telephone call concerning their refill ofTALTZ. Spoke to patient Does patient have any questions regarding medication(s)? no Is patient having difficulty taking medication(s) as prescribed? no Any medication changes (including OTC/herbals)? no new medications/OTC/herbals. Any new co-morbidities? no Patient account of regimen effectiveness: improvement in condition/symptoms Does patient have any concerns or complaints regarding possible side effects of medication(s)? no How much medication does patient have left in present supply? 0 day supply Would patient like to schedule refill of medication today which will be shipped when patient has approximately 1 week left on present supply? yes Shipment date: 07/07/2019 Delivery method:UPS Location Medication Delivered too? Home Discussed copay of prescription?:yes; patient verbalized understanding Discussed outstanding balance?:no Discussed payment options?:yes; patient verbalized understanding Medication shipped to:[address] [place] [address] Satisfaction survey: N/A Patient reminded that they will be receiving a telephone call from pharmacy to schedule their next refill when they have approximately 1 week of medication remaining. In the interim, patient advised to call pharmacy should they have any questions or concerns. LIDYA Rodriguez 07/06/2019, 11:53 AM documented in this encounter Plan of Treatment Upcoming Encounters Date Type Specialty Care Team Description 07/23/2019 Pharmacy Pharmacy Assistance, [facility], [facility] [address] [address] [phone] 07/31/2019 Pharmacy Pharmacy Medication, [facility] Refill, [address] [address] [phone] 09/09/2019 Office Visit Rheumatology Nadeen Steiner MD 21 [place] [address] 03/28/2020 Pharmacy Pharmacy Medication, [facility], [address] [place] [address] [phone] Health Maintenance Due Date Last Done Comments [...] Documents on File Type Date Recorded Patient Wood Stainer Expl 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
--- OUTSIDE RECORDS SUMMARY | 2023-02-05 23:40 | External Medical Summary | Summary of Care ---
Author [place] [address] Care Team Providers Care Falsework Builder Name Role Phone Nimo Stewart MD Primary Care Provider [phone] Reason for Visit * Reason Comments eRx-Medication Refill Encounter Details Date Type Department Care Team Description 07/21/2019 [address] [address] [facility] [address] Allergies Active Allergy Reactions Severity Noted Date Comments Codeine 09/20/2014 documented as of this encounter (statuses as of 07/21/2019) Medications Medication Sig Dispensed Refills Start Date [...] traMADol (ULTRAM) 50 MG TabletIndication s:Psoriatic arthritis ([facility]),Acute pain of both shoulders Take 2 Tabs by mouth every 6 hours as needed for Pain. 240 Tab 3 05/05/2018 Active glimepiride (AMARYL) 2 MG Tablet 2 mg. 1 tab twice daily 0 05/29/2018 Active Ixekizumab (TALTZ) 80 MG/ML SOAJIndications: PSA (psoriatic arthritis) ([facility]) Inject 80 mg under the skin Every Month. 5 Syringe 5 11/19/2018 Active predniSONE (DELTASONE) 5 MG TabletIndication s:Psoriatic arthritis ([facility]) 7.5 mg daily from 04/06-04/18/19 then 5 mg daily 100 Tab 1 04/06/2019 Active omeprazole (PRILOSEC) 20 MG CPDR TAKE 1 CAPSULE BY MOUTH DAILY 90 Cap 3 07/21/2019 Active omeprazole (PRILOSEC) 20 MG CPDR TAKE 1 CAPSULE BY MOUTH DAILY 90 Cap 3 07/23/2018 0 Discontinued documented as of this encounter (statuses as of 07/21/2019) Active Problems Problem Noted Date Body mass [...] as of this encounter (statuses as of 07/21/2019) Social History Tobacco Use Types Packs/Day Years [...] Telephone Encounter - Nadeen Steiner MD - 07/21/2019 12:17 PM EST Signed Prescriptions: Disp Refills omeprazole (PRILOSEC) 20 MG CPDR 90 Cap 3 Sig: TAKE 1 CAPSULE BY MOUTH DAILY Authorizing Provider: NADEEN STEINER * Telephone Encounter - Van Smith LPN - 07/21/2019 11:34 AM EST Pending Prescriptions: Disp Refills omeprazole (PRILOSEC) 20 MG CPDR [Pharmac*90 Cap 3 Sig: TAKE 1 CAPSULE BY MOUTH DAILY documented in this encounter Plan of Treatment Upcoming Encounters Date Type Specialty Care Team Description 07/23/2019 Pharmacy Pharmacy Assistance, [facility] Specialty, [facility] [address] [address] [phone] 07/31/2019 Pharmacy Pharmacy Medication, 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
--- OUTSIDE RECORDS SUMMARY | 2023-02-05 23:40 | External Medical Summary | Summary of Care ---
Author Name Unknown Organization [place] [address] Care Team Providers Care Engineer Design And Construction Name Role Phone Nimo Stewart MD Primary Care Provider [phone] Reason for Visit * Reason Comments Medication Refill Encounter Details Date Type Department Care Team Description 07/23/2019 Pharmacy [facility] 25 [facility], 4th Floor [place], [place] [id number] Assistance, [facility] Specialty, [facility] 25 [facility] 4th [place] [address] Encounter for medication refill* Allergies Active Allergy Reactions Severity Noted Date Comments Codeine 09/20/2014 documented as of this encounter (statuses as of 07/23/2019) Medications Medication Sig Dispensed Refills Start Date [...] traMADol (ULTRAM) 50 MG TabletIndications:P soriatic arthritis ([facility]),Acute pain of both shoulders Take 2 Tabs by mouth every 6 hours as needed for Pain. 240 Tab 3 05/05/2018 Active glimepiride (AMARYL) 2 MG Tablet 2 mg. 1 tab twice daily 0 05/29/2018 Active Ixekizumab (TALTZ) 80 MG/ML SOAJIndications:PSA (psoriatic arthritis) ([facility]) Inject 80 mg under the skin Every Month. 5 Syringe 5 11/19/2018 Active predniSONE (DELTASONE) 5 MG TabletIndications:P soriatic arthritis ([facility]) 7.5 mg daily from 04/06-04/18/19 then 5 mg daily 100 Tab 1 04/06/2019 Active omeprazole (PRILOSEC) 20 MG CPDR TAKE 1 CAPSULE BY MOUTH DAILY 90 Cap 3 07/21/2019 Active documented as of this encounter (statuses as of 07/23/2019) Active Problems Problem Noted Date Body mass [...] as of this encounter (statuses as of 07/23/2019) Social History Tobacco Use Types Packs/Day Years [...] Progress Notes * Destini Francis OSA - 07/23/2019 4:38 PM EST Awaiting prescription with signature on it to send Saturnino assistance application into [employer]. Destini Leavitt [facility] Restaurant Hospitality Manager [facility] 07/23/2019,4:38 PM documented in this encounter Plan of Treatment Upcoming Encounters Date Type Specialty Care Team Description 07/27/2019 Pharmacy Pharmacy Assistance, [facility], [address] [address] [phone] 07/31/2019 Pharmacy Pharmacy Medication, [facility] Refill, [address] [address] [phone] 09/09/2019 Office Visit Rheumatology Nadeen Steiner MD 21 [place] [address] 03/28/2020 Pharmacy Pharmacy Medication, [facility], [address] [address] [phone] Health Maintenance Due Date Last Done Comments [...] Documents on File Type Date Recorded Patient Camp Nurse Expl 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
--- OUTSIDE RECORDS SUMMARY | 2023-02-05 23:40 | External Medical Summary | Summary of Care ---
Author Name Unknown Organization [place] [address] Care Team Providers Care Front End Developer Javascript Html Css Name Role Phone Nimo Stewart MD Primary Care Provider [phone] Reason for Visit * Reason Comments Medication Refill Encounter Details Date Type Department Care Team Description 08/24/2019 Pharmacy [facility], [address], [address] [place], [place] [id number] Assistance, [facility], [address] [place] [address] Encounter for medication refill* Allergies Active Allergy Reactions Severity Noted Date Comments Codeine 09/20/2014 documented as of this encounter (statuses as of 08/24/2019) Medications Medication Sig Dispensed Refills Start Date [...] Ixekizumab (TALTZ) 80 MG/ML SOAJIndications:PSA (psoriatic arthritis) ([facility]) Inject 80 mg under the skin Every Month. 5 Syringe 5 07/24/2019 Active documented as of this encounter (statuses as of 08/24/2019) Active Problems Problem Noted Date Body mass [...] as of this encounter (statuses as of 08/24/2019) Social History Tobacco Use Types Packs/Day Years Used Date Never Smoker Smokeless Tobacco: Never Used Alcohol Use Drinks/Week oz/Week Comments Yes 1-2 drinks/bam h Sex Assigned at Date Recorded Not on file Job Start Date Occupation Industry Not on file Not on file Not on file Travel History Travel Start Travel End documented as of this encounter Progress Notes * Destini Leavitt OSA - 08/24/2019 4:21 PM EDT Appt not needed patient is enrolled with [facility] to receive Taltz until 06.09.2020 at no cost. 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
--- OUTSIDE RECORDS SUMMARY | 2023-02-05 23:40 | External Medical Summary | Summary of Care ---
Author Name Unknown Organization [place] [address] Care Team Providers Care Seat Builder Name Role Phone Nimo Stewart MD Primary Care Provider [phone] Reason for Visit * Reason Comments Medication Refill Encounter Details Date Type Department Care Team Description 08/10/2019 Pharmacy [facility] 25 [facility], 4th Floor [place], [place] [phone] Assistance, [facility] Special[facility], [facility] 25 [facility] [address]th [place] [address] Encounter for medication refill* Allergies Active Allergy Reactions Severity Noted Date Comments Codeine 09/20/2014 documented as of this encounter (statuses as of 08/10/2019) Medications Medication Sig Dispensed Refills Start Date [...] Ixekizumab (TALTZ) 80 MG/ML SOAJIndications:PSA (psoriatic arthritis) ([facility]) Inject 80 mg under the skin Every Month. 5 Syringe 5 07/24/2019 Active documented as of this encounter (statuses as of 08/10/2019) Active Problems Problem Noted Date Body mass [...] as of this encounter (statuses as of 08/10/2019) Social History Tobacco Use Types Packs/Day Years [...] Progress Notes * Chelo Kang OSA - 08/10/2019 10:46 AM EST I called and spoke with a Rep at [facility]. The pt has been approved for Saturnino from 08/03/19-06/09/20. Next, I called the pt and LMOM to make the pt aware of the same. The pt can call [facility] [phone] to set up delivery. I will continue to follow up. Chelo Correa Pharmacy Chief Counsel [facility] 08/10/2019,10:55 AM documented in this encounter Plan of Treatment Upcoming Encounters Date Type Specialty Care Team Description 08/24/2019 Pharmacy Pharmacy Assistance, [facility], [address] [address] [phone] 08/27/2019 Pharmacy Pharmacy Medication, [facility], [address] [address] [phone] 09/09/2019 Office Visit Rheumatology Nadeen Steiner MD 21 [place] [address] 03/28/2020 Pharmacy Pharmacy Medication, [facility], [address] [address] [phone] Health Maintenance Due Date Last Done Comments [...] Documents on File Type Date Recorded 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
--- OUTSIDE RECORDS SUMMARY | 2023-02-05 23:40 | External Medical Summary | Summary of Care ---
Author Name Unknown Organization [place] [address] Care Team Providers Care Psychological Assistant Name Role Phone Nimo Stewart MD Primary Care Provider [phone] [phone] Reason for Visit * Reason Comments Medication Refill Encounter Details Date Type Department Care Team Description 07/24/2019 Refill Rheumatology [place] [id number] [facility] [place] [address] Rajendra Crowley MD [address] [facility] [place] [address] PSA (psoriatic arthritis) (HCC) Allergies Active [...] (TALTZ) 80 MG/ML SOAJIndications: PSA (psoriatic arthritis) ([facility]) Inject 80 mg under the skin Every Month. 5 Syringe 5 07/24/2019 Active Ixekizumab (TALTZ) 80 MG/ML SOAJIndications: PSA (psoriatic arthritis) ([facility]) Inject 80 mg under [...] Encounter - Van Smith LPN - 07/24/2019 3:52 PM EST Faxed to [phone] * Telephone Encounter - Nadeen Steiner MD - 07/24/2019 12:58 PM EST Signed Prescriptions: Disp Refills Ixekizumab (TALTZ) 80 MG/ML SOAJ 5 Syri*5 Sig: Inject 80 mg under the skin Every Month. Authorizing Provider: NADEEN STEINER * Telephone Encounter - Van Smith LPN - 07/24/2019 11:13 AM EST Pharmacy requesting hard copy be faxed to [phone] documented in this encounter Plan of Treatment Upcoming Encounters Date Type Specialty Care Team Description 07/27/2019 Pharmacy Pharmacy Assistance, [facility], [facility] [address] [address] [phone] 07/31/2019 Pharmacy Pharmacy Medication, [facility] Refill, [facility] [address] [address] [phone] 09/09/2019 Office Visit Rheumatology Nadeen Steiner MD [address] [place] [address] 03/28/2020 Pharmacy Pharmacy Medication, [facility], [address] [place] [address] Health Maintenance Due [...] Documents on File Type Date Recorded 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
--- OUTSIDE RECORDS SUMMARY | 2023-02-05 23:40 | External Medical Summary | Summary of Care ---
Author Name Unknown Organization [place] [address] Care Team Providers Care Combat Information Center Officer Name Role Phone Nimo Stewart MD Primary Care Provider [phone] Reason for Visit * Reason Comments Medication Refill Encounter Details Date Type Department Care Team Description 07/27/2019 Pharmacy [facility] 25 [facility], 4th Floor [place], [place] [phone] Assistance, [facility] Specialty, [facility] 25 [facility] [address]th [place] [address] Encounter for medication refill* Allergies Active Allergy Reactions Severity Noted Date Comments Codeine 09/20/2014 documented as of this encounter (statuses as of 07/27/2019) Medications Medication Sig Dispensed Refills Start Date [...] 80 MG/ML SOAJIndications:PSA (psoriatic arthritis) ([facility]) Inject 80 mg under the skin Every Month. 5 Syringe 5 07/24/2019 Active documented as of this encounter (statuses as of 07/27/2019) Active Problems Problem Noted Date Body mass [...] as of this encounter (statuses as of 07/27/2019) Social History Tobacco Use Types Packs/Day Years [...] Progress Notes * Chelo Kang OSA - 07/27/2019 12:35 PM EST Appt not needed. Rx received and faxed to the first aid nurse. Chelo Correa Pharmacy Histotechnologist Supervisor [facility] 07/27/2019,12:35 PM documented in this encounter Plan of Treatment Upcoming Encounters Date Type Specialty Care Team Description 07/31/2019 Pharmacy Pharmacy Medication, [facility], [address] [address] 08/03/2019 Pharmacy Pharmacy Assistance, [facility], [address] [address] 09/09/2019 Office Visit Rheumatology Nadeen Steiner MD 21 [place] [address] 03/28/2020 Pharmacy Pharmacy Medication, [facility], [address] [address] Health Maintenance Due Date Last Done Comments [...] Documents on File Type Date Recorded Patient Manager Wound Care Expl 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
--- OUTSIDE RECORDS SUMMARY | 2023-02-05 23:40 | External Medical Summary | Summary of Care ---
Author Name Unknown Organization [place] [address] Care Team Providers Care Book Store Associate Name Role Phone Nimo Stewart MD Primary Care Provider [phone] [phone] Reason for Visit * Reason Comments Medication Refill Encounter Details Date Type Department Care Team Description 07/06/2019 Pharmacy [facility] 25 [facility], 4th Floor [place], [place] [phone] Assistance, [facility] Special[facility], [facility] 25 [facility] 4th [place] [address] Encounter for medication refill* Allergies [...] Notes * Destini Francis OSA - 07/06/2019 11:56 AM EST Patient was DENIED for funding for Taltz through [employer] due to no funding available. Patient has a $50.00 co-pay and agreeable to co-pay. Card information provided. Mailing patient an application for assistance through [employer]. Patient receiving Taltz on 07/08/2019,application will be with prescription. Destini Leavitt Pharmacy Sand Mixer [facility] 07/06/2019,11:57 AM documented in this encounter Plan of Treatment Upcoming Encounters Date Type Specialty Care Team Description 07/08/2019 Pharmacy Pharmacy Medication, [facility] Refill, [address] [address] Encounter for medication refill* 07/23/2019 Pharmacy Pharmacy Assistance, [facility], [address] [address] 07/31/2019 Pharmacy Pharmacy Medication, [facility]ill, [address] [address] 09/09/2019 Office Visit Rheumatology Nadeen Steiner MD 21 [place] [address] 03/28/2020 Pharmacy Pharmacy Medication, [facility], [address] [address] Health Maintenance Due Date Last Done Comments [...] Documents on File Type Date Recorded 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
--- OUTSIDE RECORDS SUMMARY | 2023-02-05 23:40 | External Medical Summary | Summary of Care ---
Author Name Unknown Organization [place] [address] Care Team Providers Care Mechanic Helper Name Role Phone Nimo Stewart MD Primary Care Provider [phone] [phone] Reason for Visit * Reason Comments Medication Refill Encounter Details Date Type Department Care Team Description 08/03/2019 Pharmacy [facility] [address] [facility], 4th Floor [place], [place] [id number] Assistance, [facility], [facility] [address] [facility] [address]th [place] [address] Encounter for medication refill* Allergies Active Allergy Reactions Severity Noted Date Comments Codeine 09/20/2014 documented as of this encounter (statuses as of 08/03/2019) Medications Medication Sig Dispensed Refills Start Date [...] Ixekizumab (TALTZ) 80 MG/ML SOAJIndications:PSA (psoriatic arthritis) ([facility]) Inject 80 mg under the skin Every Month. 5 Syringe 5 07/24/2019 Active documented as of this encounter (statuses as of 08/03/2019) Active Problems Problem Noted Date Body mass [...] as of this encounter (statuses as of 08/03/2019) Social History Tobacco Use Types Packs/Day Years [...] Progress Notes * Chelo Kang OSA - 08/03/2019 11:29 AM EST I called and spoke with a Rep at [employer]. The pts [place] assistance application is still in process. They have received all of the necessary documentation needed at this time. She suggested that I call back next week for a status update. I will continue to follow up. 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
--- OUTSIDE RECORDS SUMMARY | 2023-02-05 23:40 | External Medical Summary | Summary of Care ---
Author Name Unknown Organization [place] [address] Care Team Providers Care Negative Checker Name Role Phone Nimo Stewart MD Primary Care Provider [phone] Reason for Visit * Reason Comments Medication Refill Encounter Details Date Type Department Care Team Description 07/31/2019 Pharmacy [facility] [address] [facility], 4th [place] [address] Medication, [facility] Refill, [facility] [address] [facility] 4th [place] [address] Encounter for medication refill* Allergies [...] Ixekizumab (TALTZ) 80 MG/ML SOAJIndications:PSA (psoriatic arthritis) ([facility]) Inject 80 mg under the [...] as of this encounter Progress Notes * Chasidy Chan PHARM Tech - 08/03/2019 12:07 PM EST [facility] REFILL CALL NOTE Sarwat Ochoa Shannan [id number] Patient is a 74 year old male on the schedule today for a telephone call concerning their refill ofTaltz. Spoke to Does patient have any questions regarding medication(s)? no Is patient having difficulty taking medication(s) as prescribed? no Any medication changes (including OTC/herbals)? no new medications/OTC/herbals. Any new co-morbidities? no Patient account of regimen effectiveness: did not ask Does patient have any concerns or complaints regarding possible side effects of medication(s)? no How much medication does patient have left in present supply? none Would patient like to schedule refill of medication today which will be shipped when patient has approximately 1 week left on present supply? yes Shipment date: 08/04/2019 Delivery method:UPS Location Medication Delivered too? Home Discussed copay of prescription?:yes; patient verbalized understanding Discussed outstanding balance?:no Discussed payment options?:yes; patient verbalized understanding Medication shipped to:[address] [place] [address] Satisfaction survey: NA Patient reminded that they will be receiving a telephone call from pharmacy to schedule their next refill when they have approximately 1 week of medication remaining. In the interim, patient advised to call pharmacy should they have any questions or concerns. ALEXANDRIA Joshi Tech 08/03/2019, 12:07 PM documented in this encounter Plan of Treatment Upcoming Encounters Date Type Specialty Care Team Description 08/10/2019 Pharmacy Pharmacy Assistance, [facility], [address] [place] [address] [phone] 08/27/2019 Pharmacy Pharmacy Medication, [facility] [address]ill, [address] [address] [phone] 09/09/2019 Office Visit Rheumatology Nadeen Steiner MD 21 [place] [address] [phone] 03/28/2020 Pharmacy Pharmacy Medication, [facility], [address] [place] [address] [phone] Health Maintenance Due Date Last Done Comments [...] Documents on File Type Date Recorded Patient Compactor Driver Expl 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
--- OUTSIDE RECORDS SUMMARY | 2023-02-05 23:40 | External Medical Summary | Summary of Care ---
Author Name Unknown Organization [place] [address] Care Team Providers Care Appraiser Boats And Marine Name Role Phone Nimo Stewart MD Primary Care Provider [phone] Reason for Visit * Reason Comments Order Request Encounter Details Date Type Department Care Team Description 08/28/2019 Telephone Sekou Hemphill [address] [facility] [place] [address] Nadeen Steiner MD [address] [facility] [place] [address] Order Request Allergies Active Allergy Reactions Severity Noted Date Comments Codeine 09/20/2014 documented as of this encounter (statuses as of 08/31/2019) Medications Medication Sig Dispensed Refills Start Date [...] 80 MG/ML SOAJIndications:PSA (psoriatic arthritis) ([facility]) Inject 80 mg under the skin Every Month. 5 Syringe 5 07/24/2019 Active documented as of this encounter (statuses as of 08/31/2019) Active Problems Problem Noted Date Body mass [...] as of this encounter (statuses as of 08/31/2019) Social History Tobacco Use Types Packs/Day Years Used Date Never Smoker Smokeless Tobacco: Never Used Alcohol Use Drinks/Week oz/Week Comments Yes 1-2 drinks/bam h Sex Assigned at Date Recorded Not on file Job Start Date Occupation Industry Not on file Not on file Not on file Travel History Travel Start Travel End documented as of this encounter Miscellaneous Notes * Telephone Encounter - Clarisse Soto OSA - 08/31/2019 9:44 AM EDT Appt rescheduled for 12/13 at 1:25. Pt aware * Telephone Encounter - Cuca Segura LPN - 08/31/2019 8:50 AM EDT Lab slips mailed. Please reschedule per Dr Steiner's message * Telephone Encounter - Nadeen Steiner MD - 08/28/2019 4:41 PM EDT Spoke to patient's . He is doing excellent! They are ok with rescheduling for November or December. Advised to remain on his regimen and that we will mail him blood work orders that he should not getdone until the Statewide mandate is lifted regarding self isolation/social distancing. She expressed understanding and agreed with this plan. Nurses, please mail lab orders. Schedulers, please contact patient to reschedule for November or December. Thanks. * Telephone Encounter - Mahogany Acharya OSA - 08/28/2019 3:56 PM EDT An order was requested for this patient. Name of Requesting Provider: Patient's Order Requested: Blood work Diagnosis/Reason for Request: anything Dr. Steiner would like before appt Does the order need to be faxed somewhere? If so, where?: [facility] Fax Number, if applicable: N/A Call Back Number: [phone] documented in this encounter Plan of Treatment Upcoming Encounters Date Type Specialty Care Team Description 12/14/2019 Office Visit Rheumatology Nadeen Steiner MD 21 [facility] [place] [address] 03/28/2020 Pharmacy Pharmacy Medication, [facility], [address] [place] [address] [phone] Scheduled Orders Name Type Priority Associated Diagnoses Orde r Schedule CBC/DIFF Lab Routine PSA (psoriatic arthritis) (HCC) High risk medication use Ordered: 08/28/2019 COMPR METAB PANEL Lab Routine PSA (psoriatic arthritis) (HCC) High risk medication use Ordered: 08/28/2019 Health Maintenance Due Date Last Done Comments [...] encounter Visit Diagnoses Diagnosis PSA (psoriatic arthritis) ([facility])- Primary Psoriatic arthropathy High risk medication use Encounter for long-term (current) use of other medications documented in this encounter Advance Directives Documents on File Type Date Recorded 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
--- OUTSIDE RECORDS SUMMARY | 2023-02-05 23:40 | External Medical Summary | Summary of Care ---
Author Name Unknown Organization [place] [address] Care Team Providers Care Ladies' Hat Trimmer Name Role Phone Nimo Stewart MD Primary Care Provider [phone] Reason for Visit * Reason Comments Medication Refill Encounter Details Date Type Department Care Team Description 07/23/2019 Pharmacy [facility] [address] [facility], 4th Floor [place], [place] [id number] Assistance, [facility], [facility] [address] [facility] 4th [place] [address] Encounter for medication refill* Allergies [...] (TALTZ) 80 MG/ML SOAJIndications: PSA (psoriatic arthritis) ([facility]) [...] as of this encounter Progress Notes * Jorge Luis, Chelo A, LIDYA - 07/27/2019 12:17 PM EST Received hard copy of Rx-Taltz. Application faxed to [facility] with confirmation. Chelo Correa Pharmacy Survey Project Manager [facility] 07/27/2019,12:17 PM * Destini Francis OSA - 07/23/2019 4:38 PM EST Awaiting prescription with dr signature on it to send Taltz assistance application into [facility]. Destini Leavitt Pharmacy Cold Type Composing Machine Operator [facility] 07/23/2019,4:38 PM documented in this encounter Plan of Treatment Upcoming Encounters Date Type Specialty Care Team Description 07/31/2019 Pharmacy Pharmacy Medication, [facility] Refill, [address] [address] [phone] 09/09/2019 Office Visit Rheumatology Nadeen Steiner MD 21 [place], [place] [id number] 03/28/2020 Pharmacy Pharmacy Medication, [facility], [address] [address] [phone] Health Maintenance Due Date Last Done Comments [...] Documents on File Type Date Recorded Patient Feature Writer Expl 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
--- OUTSIDE RECORDS SUMMARY | 2023-02-05 23:41 | External Medical Summary | Summary of Care ---
Author Name Unknown Organization [place] [address] Care Team Providers Care Buttermilk Drier Operator Name Role Phone Nimo Stewart MD Primary Care Provider [phone] Reason for Visit * Reason Comments Medication Management Medication Refill Encounter Details Date Type Department Care Team Description 03/27/2019 Pharmacy [facility] [address] [facility], [address]th [place] [address] Medication, [facility], [facility] [address] [facility] [address]th [place] [address] Encounter for medication refill* Allergies Active Allergy Reactions Severity Noted Date Comments Codeine 09/20/2014 documented as of this encounter (statuses as of 03/27/2019) Medications Medication Sig Dispensed Refills Start Date End Date Status Aspirin 81 MG Tablet 1 daily 0 Active Cholecalciferol (VITAMIN D) 1000 UNIT Capsule 1 [...] MOUTH DAILY 90 Cap 3 07/23/2018 Active predniSONE (DELTASONE) 10 MG TabletIndications: Psoriatic arthritis (HCC) Take 1 Tab by mouth daily. 90 Tab 4 11/17/2018 Active Ixekizumab (TALTZ) 80 MG/ML SOAJIndications:PS A (psoriatic arthritis) ([facility]) Inject 80 mg under the skin Every Month. 5 Syringe 5 11/19/2018 Active Ixekizumab (TALTZ) 80 MG/ML SOAJIndications:PS A (psoriatic arthritis) ([facility]) 160 mg subcutaneous at week 0 followed by 80 mg subcutaneous every 4 week 2 Syringe 0 11/20/2018 Active documented as of this encounter (statuses as of 03/27/2019) Active Problems Problem Noted Date Body mass [...] as of this encounter (statuses as of 03/27/2019) Social History Tobacco Use Types Packs/Day Years Used Date Never Smoker Smokeless Tobacco: Never Used Alcohol Use Drinks/Week oz/Week Comments Yes 1-2 drinks/bam h Sex Assigned at Date Recorded Not on file Job Start Date Occupation Industry Not on file Not on file Not on file Travel History Travel Start Travel End documented as of this encounter Progress Notes * Jessica, Tsering To, [facility] - 03/27/2019 12:49 PM EDT Medication Therapy Management Specialty Pharmacy Re-Assessment Note Name: Sarwat Campbell Patient is a 73 year old male presently on a medication regimen of taltz for PsA. Disease Type: Autoimmune, Psoriatic Arthritis (PsA) Current medication regimen for above noted indication: TALTZ Date of initiation of present therapy: approximately 3 months. Is this a new therapy? no Stop date for present therapy: not applicable at this time. Prior DMARD Therapy Prior history of DMARD? cosentyx Side effects: Is patient experiencing any side effects so bothersome that patient is considering discontinuing medication? yes What does patient do when he has these side effects? na Assessment of education: basic understanding. Education provided today: yes; verbal. Adherence: In the last month, how many times has patient missed a dose of above noted medication? 0. Concomitant Medication(s): Any medication changes (including OTC/herbals)? no new medications/OTC/herbals. Status update: Any new co-morbidities: no. Depression Screenin. Little interest or pleasure in doing things - 0 2. Feeling down, depressed or hopeless - 1 Scoring for each: Not at all = 0, Several days = 1, More than half the days = 2, Nearly every day =3 Regimen effectiveness: Labs reviewed: Not Applicable. Imaging studies reviewed: Not Applicable Other: na. Patient account of regimen effectiveness: improvement in condition/symptoms. Recent hospitalization/ER for above noted condition: no. Disease in remission or cured: not applicable Impairment: Number of work/school days missed in last month due to above noted condition: 0. Number of days less productive in last 3 months due to above noted condition: 0. Intervention: adherence and education: no issues Medication Shipment Information: Prior authorization date: unknown. Discussed delivery procedure? yes; patient verbalized understanding. Location Medication Delivered too? Home Discussed refill procedure? yes; patient verbalized understanding. Discussed copay of prescription? no. Discussed payment options? no. Shipment date: 03/31 for 04/01. Medication to be shipped to: [address] [place] [id number] Tsering Lopez, [facility] Clinical Pharmacist 03/27/2019, 12:49 PM documented in this encounter Plan of Treatment Upcoming Encounters Date Type Specialty Care Team Description 04/06/2019 Office Visit Rheumatology Nadeen Steiner MD 21 [place], [place] [id number] 04/21/2019 Pharmacy Pharmacy Medication, [facility] Refill, [address] [address] [phone] 03/28/2020 Pharmacy Pharmacy Medication, [facility], [address] [address] [phone] Health Maintenance Due Date Last Done Comments Yearly B-12 1943 DIABETES-EYE EXAM 1961 DIABETES-FOOT EXAM 1961 DIABETES-HGBA1C EVERY 6 MONTHS 1961 DTaP,Tdap,and Td Vaccines (1 - Tdap) 1962 Pneumococcal Vaccine: 65+ Ye ars (1 of 2 - PCV13) 2008 COLONOSCOPY-EVERY 5 YRS AGES 18-100 01/04/2014 01/04/2009 *DEPRESSION SCREENING,ANNUAL FOR PTS 12 AND OVER 09/23/2014 *URINE PROTEIN ONCE FOR HTN-DIPSTICK ACCEPTABLE 09/23/2014 *BASIC METABOLIC PANEL (BMP) FOR HTN YEARLY 11/25/2017 Influenza Vaccine (FLU shot) (#1) 2019 MENINGOCOCCAL (MENACTRA) Aged Out No longer eligible based on patient's age to complete this topic documented as of this encounter Implants Not on filedocumented as of this encounter Visit Diagnoses Diagnosis Encounter for medication refill- Primary Issue of repeat prescriptions documented in this encounter Advance Directives Documents on File Type Date Recorded 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
--- OUTSIDE RECORDS SUMMARY | 2023-02-05 23:41 | External Medical Summary | Summary of Care ---
Author Name Unknown Organization [place] [address] Care Team Providers Care Protective Clothing Issuer Name Role Phone Nimo Stewart MD Primary Care Provider [phone] Reason for Visit * Reason Comments Medication Refill Encounter Details Date Type Department Care Team Description 01/22/2019 Pharmacy [facility] 25 [facility], 4th Floor [place], [place] [id number] Medication, [facility] Refill, [facility] [address] [facility] 4th [place] [address] Encounter for medication refill* Allergies Active Allergy Reactions Severity Noted Date Comments Codeine 09/20/2014 documented as of this encounter (statuses as of 01/23/2019) Medications Medication Sig Dispensed Refills Start Date [...] (TALTZ) 80 MG/ML SOAJIndications:PS A (psoriatic arthritis) ([facility]) Inject 80 mg under the skin Every Month. 5 Syringe 5 11/19/2018 Active Ixekizumab (TALTZ) 80 MG/ML SOAJIndications:PS A (psoriatic arthritis) ([facility]) 160 mg subcutaneous at week 0 followed by 80 mg subcutaneous every 4 week 2 Syringe 0 11/20/2018 Active documented as of this encounter (statuses as of 01/23/2019) Active Problems Problem Noted Date Body mass [...] as of this encounter (statuses as of 01/23/2019) Social History Tobacco Use Types Packs/Day Years Used Date Never Smoker Smokeless Tobacco: Never Used Alcohol Use Drinks/Week oz/Week Comments Yes 1-2 drinks/bam h Sex Assigned at Date Recorded Not on file Job Start Date Occupation Industry Not on file Not on file Not on file Travel History Travel Start Travel End documented as of this encounter Progress Notes * Lauryn Nuñez OSA - 01/23/2019 10:39 AM EDT [facility] REFILL CALL NOTE Sarwat Campbell [id number] Patient is a 73 year old male on the schedule today for a telephone call concerning their refill ofTaltz. Spoke to patient Does patient have any questions regarding medication(s)? no Is patient having difficulty taking medication(s) as prescribed? no How much medication does patient have left in present supply? none Would patient like to schedule refill of medication today which will be shipped when patient has approximately 1 week left on present supply? yes Shipment date: 01/29/19 Delivery method:UPS Location Medication Delivered too? Home Discussed copay of prescription?:yes; patient verbalized understanding Discussed outstanding balance?:yes; patient verbalized understanding Discussed payment options?:yes; patient verbalized understanding Medication shipped to: [address] [place] [address] Satisfaction survey: n/a Patient reminded that they will be receiving a telephone call from pharmacy to schedule their next refill when they have approximately 1 week of medication remaining. In the interim, patient advised to call pharmacy should they have any questions or concerns. LIDYA Le 01/23/2019, 10:41 AM documented in this encounter Plan of Treatment Upcoming Encounters Date Type Specialty Care Team Description 02/23/2019 Pharmacy Pharmacy Medication, [facility] Specialty Refill, [facility] [address] [place] [address] [phone] 03/03/2019 Pharmacy Pharmacy Medication, [facility], [facility] [address] [place] [address] [phone] 04/06/2019 Office Visit Rheumatology Nadeen Steiner MD [facility] [place] [id number] Health Maintenance Due Date Last Done Comments Yearly B-12 1943 DIABETES-EYE EXAM 1961 DIABETES-FOOT EXAM 1961 DIABETES-HGBA1C EVERY 6 MONTHS 1961 DTaP,Tdap,and Td Vaccines (1 - Tdap) 1962 PNEUMOCOCCAL ADULT 65 YRS AN D OVER (1 of 2 - PCV13) 2008 COLONOSCOPY-EVERY [...] Documents on File Type Date Recorded 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
--- OUTSIDE RECORDS SUMMARY | 2023-02-05 23:41 | External Medical Summary | Summary of Care ---
Author Name Unknown Organization [facility] Address [facility] [place] [address] Care Team Providers Care Bridge Attacher Name Role Phone Nimo Stewart MD Primary Care Provider [phone] Encounter Details Date Type Department Care Team Description 04/10/2019 Orders Only Rheumatology, [place] [facility] [place] [address] Nadeen Steiner MD 21 [facility] [place] [address] Allergies Active Allergy Reactions Severity Noted Date Comments Codeine 09/20/2014 documented as of this encounter (statuses as of 04/10/2019) Medications Medication Sig Dispensed Refills Start Date [...] (TALTZ) 80 MG/ML SOAJIndications:PSA (psoriatic arthritis) ([facility]) Inject 80 mg under the skin Every Month. 5 Syringe 5 11/19/2018 Active predniSONE (DELTASONE) 5 MG TabletIndications:P soriatic arthritis ([facility]) 7.5 mg daily from 04/06-04/18/19 then 5 mg daily 100 Tab 1 04/06/2019 Active documented as of this encounter (statuses as of 04/10/2019) Active Problems Problem Noted Date Body mass [...] as of this encounter (statuses as of 04/10/2019) Social History Tobacco Use Types Packs/Day Years Used Date Never Smoker Smokeless Tobacco: Never Used Alcohol Use Drinks/Week oz/Week Comments Yes 1-2 drinks/bam h Sex Assigned at Date Recorded Not on file Job Start Date Occupation Industry Not on file Not on file Not on file Travel History Travel Start Travel End documented as of this encounter Plan of Treatment Upcoming Encounters Date Type Specialty Care Team Description 04/21/2019 Pharmacy Pharmacy Medication, [facility] Special[facility] Refill, [facility] [address] [address] [phone] 09/09/2019 Office Visit Rheumatology Nadeen Steiner MD 21 [place] [address] 03/28/2020 Pharmacy Pharmacy Medication, Mtm Specialty, [facility] [address] [address] [phone] Health Maintenance Due Date Last Done Comments [...] Priority Date/Time Associated Diagnosis Comments CHEMISTRY-OUTSIDE Routine 03/27/2019 documented in this encounter Results * CHEMISTRY-OUTSIDE (03/27/2019) CREATININE-OUTSIDE LAB 0.98 0.6 - 1.4 MG/DL OUTSIDE LAB (SEE SCANNED REPORT) GFR ESTIMATED-OUTSIDE LAB 75.1 ML/MIN OUTSIDE LAB (SEE SCANNED REPORT) POTASSIUM-OUTSIDE LAB 4.1 3.5 - 5.1 MMOL OUTS ADI LAB (SEE SCANNED REPORT) GLUCOSE-OUTSIDE LAB 113(A) 70 - 99 MG/DL OUTSIDE LAB (SEE SCANNED REPORT) HOURS FASTING OUTSIDE LAB (S EE SCANNED REPORT) TRIGLYCERIDES-OUTSIDE LAB OUTSIDE LAB (SEE SCANNED REPORT) CHOLESTEROL-OUTSIDE LAB OUTSIDE LAB (SEE SCANNED REPORT) HDL-OUTSIDE LAB OUTSIDE LAB (SEE SCANNED REPORT) CHOL/HDL RATIO-OUTSIDE LAB OUTSIDE LAB (SEE SCANNED REPORT) LDL (CALCULATED)-OUTSIDE LAB OUTSIDE LAB (SEE SCANNED REPORT) LDL (DIRECT MEASURE)-OUTSIDE LAB OUTSIDE LAB (SEE SCANNED REPORT) HEMOGLOBIN, V8N-JLPCOSK LAB OUTSIDE LAB (SEE SCANNED REPORT) PHOSPHORUS-OUTSIDE LAB OUTSIDE LAB (SEE SCANNED REPORT) PTH-OUTSIDE LAB OUTSIDE LAB (SEE SCANNED REPORT) MICROALBUMIN RATIO-OUTSIDE LAB OUTSIDE LAB (SEE SCANNED REPORT) PROTEIN, UA-OUTSIDE LAB OUTSIDE LAB (SEE SCANNED REPORT) HEMOGLOBIN-OUTSIDE LAB 12.6(A) 14.0 - 18.0 G/DL OUTSIDE LAB (SEE SCANNED REPORT) CHEMISTRY COMMENT-OUTSIDE LAB Comment:[facility] BCD,CMP OUTSIDE LAB (SEE SCANNED REPORT) Specimen Narrative Performed At Performing Organization Address City/State/Zipcod e Phone Number OUTSIDE LAB (SEE SCANNED REPORT) documented in this encounter Advance Directives Documents on File Type Date Recorded Patient Manager Dialysis Expl 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
--- OUTSIDE RECORDS SUMMARY | 2023-02-05 23:41 | External Medical Summary | Summary of Care ---
Author [place] [address] Care Team Providers Care Card Writer Hand Name Role Phone Nimo Stewart MD Primary Care Provider [phone] Reason for Visit * Reason Comments Rheum Follow Up Encounter Details Date Type Department Care Team Description 04/06/2019 Office Visit Rheumatology [address] [place] [address] Nadeen Steiner MD 21 [place] [address] Psoriatic arthritis (HCC)*; High risk medication use; Generalized osteoarthritis Allergies Active Allergy Reactions Severity Noted Date Comments Codeine 09/20/2014 documented as of this encounter (statuses as of 04/06/2019) Medications Medication Sig Dispensed Refills Start Date [...] 3 07/23/2018 Active Ixekizumab (TALTZ) 80 MG/ML SOAJIndications: PSA (psoriatic arthritis) ([facility]) Inject 80 mg under the skin Every Month. 5 Syringe 5 11/19/2018 Active predniSONE (DELTASONE) 5 MG TabletIndication s:Psoriatic arthritis (HCC) 7.5 mg daily from 04/06-04/18/19 then 5 mg daily 100 Tab 1 04/06/2019 Active Aspirin 81 MG Tablet 1 daily 0 9 Discontinued predniSONE (DELTASONE) 10 MG TabletIndication s:Psoriatic arthritis ([facility]) Take 1 Tab by mouth daily. 90 Tab 4 11/17/2018 9 Discontinued Ixekizumab (TALTZ) 80 MG/ML SOAJIndications: PSA (psoriatic arthritis) ([facility]) 160 mg subcutaneous at week 0 followed by 80 mg subcutaneous every 4 week 2 Syringe 0 11/20/2018 9 Discontinued documented as of this encounter (statuses as of 04/06/2019) Active Problems Problem Noted Date Body mass [...] as of this encounter (statuses as of 04/06/2019) Social History Tobacco Use Types Packs/Day Years Used Date Never Smoker Smokeless Tobacco: Never Used Alcohol Use Drinks/Week oz/Week Comments Yes 1-2 drinks/bam h Sex Assigned at Date Recorded Not on file Job Start Date Occupation Industry Not on file Not on file Not on file Travel History Travel Start Travel End documented as of this encounter Last Filed Vital Signs Vital Sign Reading Time Taken Comments Blood Pressure 130/70 04/06/2019 1:19 PM EDT Pulse - - Temperature 37.1 C (98.7 F) 04/06/2019 1:19 PM ED T Respiratory Rate 20 04/06/2019 1:19 PM EDT Oxygen Saturation - - Inhaled Oxygen Concentration - - Weight 139.7 kg (307 lb 14.4 oz) 04/06/2019 1:19 PM EDT Height 167.6 cm (5' 6") 04/06/2019 1:19 PM EDT Body Mass Index 49.7 04/06/2019 1:19 PM EDT documented in this encounter Patient Instructions * Patient Instructions* Nadeen Steiner MD - 04/06/2019 1:44 PM EDT Decrease prednisone to 7.5 mg daily until 04/18/19 then go to 5 mg daily. Continue Saturnino Call with any issues! documented in this encounter Progress Notes * Nadeen Steiner MD - 04/06/2019 1:32 PM EDT Reason for visit: Follow-up for ongoing evaluation and treatment of psoriatic arthritis. Last Office Visit: 11/17/2018. Diagnosis date: 1980s Past treatments: steroids, methotrexate, Enbrel, Remicade (1999-August 2016) discontinued due topersistent transaminitis and diagnosis of MGUS, Otezla-loss of efficacy; Cosentyx (12/25- 11/17/18) Current regimen: prednisone 10 mg daily, Taltz (11/26- History of present illness: Since the time of his last evaluation, he notes the following: his psoriasis has cleared. He completed the loading dose for Taltz. His joints are quiet. He does remain on 10 mg of prednisone daily. He has noticed easy bruising and tearing of his skin with minimal trauma. Most recent labs from 03/27/2019 showed no evidence of medication toxicity. He denies any interval infections, hospitalizations, or surgeries. 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 Family history: Family history is unchanged. Social history: Social History Tobacco Use Smoking status: Never Smoker Smokeless tobacco: Never Used Substance Use Topics Alcohol use: Yes Comment: 1-2 drinks/month Drug use: No Allergies: Review of patient's allergies indicates: Allergen Reactions Codeine Review of systems: Positive for difficulty breathing. Review of Systems was asked and other than the issues noted in the History of present illness, no other significant symptoms are present. Current Outpatient Medications Medication Sig Dispense Refill Ixekizumab (TALTZ) 80 MG/ML SOAJ 160 mg subcutaneous at week 0 followed by 80 mg subcutaneous every 4 week 2 Syringe 0 Ixekizumab (TALTZ) 80 MG/ML SOAJ Inject 80 mg under the skin Every Month. 5 Syringe 5 predniSONE (DELTASONE) 10 MG Tablet Take 1 Tab by mouth daily. 90 Tab 4 omeprazole (PRILOSEC) 20 MG CPDR TAKE 1 [...] Capsule 1 daily Examination: Vital signs: BP 130/70 | Temp 98.7 | Resp 20 | Ht 5' 6" (1.676m) | Wt 307 lbs 14.4 oz (139.663kg) |BMI 49.7 kg/m | BSA 2.55 m General: Obese man who appears well and is in no acute distress. Skin: No rashes, large Band-Aid on left forearm Chest: Clear to ascultation bilaterally with no wheezing, rales, or rhonchi. Heart: Rate regular and rhythm with normal S1 and S2. No murmurs, rubs or gallops. Extremities: 1+ lower extremity edema. Musculoskeletal: No joint tenderness or swelling Diagnostic data reviewed 03/27/2019 WBC 10.9, hemoglobin 12.6, hematocrit 40.7, platelets 239,000 AST 16, ALT 24, alk-phos 60, total protein 8.1, calcium 9.2 Assessment: ICD-10-CM 1. Psoriatic arthritis (HCC) L40.50 2. High risk medication use Z79.899 3. Generalized osteoarthritis M15.9 Mr. Campbell returns today for management of psoriatic arthritis. He is doing well on Taltz. Plan: 1. Discussed the above in detail with the patient and his . All questions were answered. 2. Will decrease prednisone to 7.5 mg daily for 2 weeks, then 5 mg daily. 3. Continue Taltz. 4. He was encouraged to contact me with any questions or concerns. 5. Follow-up: Return in about 5 months (around 09/05/2019). | Check-out note: Ok to overbook Nadeen Steiner MD PhD Rheumatology CC: Nimo Stewart MD documented in this encounter Nursing Notes * Karley Verdin, RN - 04/06/2019 1:19 PM EDT Pt here for follow up visit documented in this encounter Plan of Treatment Upcoming Encounters Date Type Specialty Care Team Description 04/21/2019 Pharmacy Pharmacy Medication, [facility] Specialty Refill, [address] [address] [phone] 09/09/2019 Office Visit Rheumatology Nadeen Steiner MD 21 [place] [address] [phone] 03/28/2020 Pharmacy Pharmacy Medication, [facility] Specialty, [address] [address] [phone] Health Maintenance Due Date Last Done Comments [...] for long-term (current) use of other medications Generalized osteoarthritis Generalized osteoarthrosis, unspecified site documented in this encounter Advance Directives Documents on File Type Date Recorded Patient Inner Tube Tuber Machine Operator Expl 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
--- OUTSIDE RECORDS SUMMARY | 2023-02-05 23:41 | External Medical Summary | Summary of Care ---
Author [place] [address] Care Team Providers Care Punchboard Inserter Name Role Phone Nimo Stewart MD Primary Care Provider [phone] Reason for Visit * Reason Comments Pre Cert/Prior Auth Saturnino Medication Refill Encounter Details Date Type Department Care Team Description 11/17/2018 [address] [address] Nadeen Steiner MD 21 [place] [address] Pre Cert/Prior Auth ( Saturnino ); Medication ... Allergies Active Allergy Reactions Severity Noted Date Comments Codeine 09/20/2014 documented as of this encounter (statuses as of 11/21/2018) Medications Medication Sig Dispensed Refills Start Date [...] 3 07/23/2018 Active predniSONE (DELTASONE) 10 MG TabletIndication s:Psoriatic arthritis (HCC) Take 1 Tab by mouth daily. 90 Tab 4 11/17/2018 Active Ixekizumab (TALTZ) 80 MG/ML SOAJIndications: PSA (psoriatic arthritis) ([facility]) Inject 80 mg under the skin Every Month. 5 Syringe 5 11/19/2018 Active Ixekizumab (TALTZ) 80 MG/ML SOAJIndications: PSA (psoriatic arthritis) (HCC) 160 mg subcutaneous at week 0 followed by 80 mg subcutaneous every 4 week 2 Syringe 0 11/20/2018 Active Ixekizumab (TALTZ) 80 MG/ML SOAJIndications: PSA (psoriatic arthritis) ([facility]) 160 mg subQ (given as two 80 mg injections) at week 0, followed by 80 mg subQ at weeks 2, 4, 6, 8, 10, and 12, then 80 mg subQ every 4 weeks 8 Syringe 0 11/19/2018 9 Discontinued documented as of this encounter (statuses as of 11/21/2018) Active Problems Problem Noted Date Body mass [...] as of this encounter (statuses as of 11/21/2018) Social History Tobacco Use Types Packs/Day Years Used Date Never Smoker Smokeless Tobacco: Never Used Alcohol Use Drinks/Week oz/Week Comments Yes 1-2 drinks/bam h Sex Assigned at Date Recorded Not on file Job Start Date Occupation Industry Not on file Not on file Not on file Travel History Travel Start Travel End documented as of this encounter Miscellaneous Notes * Telephone Encounter - Matt Meza RPh - 11/21/2018 1:58 PM EDT Rx received for david trevino able to fill. After insurance and copay card charge to patient is $0. We will reach out to patient to set up delivery Matt Meza [facility], PharmD Specialty Medication Pharmacist David Specialty Rx 11/21/2018,1:58 PM * Telephone Encounter - Arie Ponce OSA - 11/21/2018 1:37 PM EDT Kirill calling from [facility] stating the Taltz auto injector was denied the appeal. He will be sending a letter stating the instructions for the next level of appeal. * Telephone Encounter - Tea Saldaña CPhT - 11/21/2018 10:11 AM EDT Kirill from [facility] called to request additional information for prior auth transferred call to scheduling who will get him to Rheumatology front end loader driver ThanksTea Plant Equipment Engineer Pharmacy Refill Call Center 11/21/2018,10:12 AM * Telephone Encounter - Cuca Segura LPN - 11/20/2018 3:[address] Steiner changed the dosing to the PsA dosing, will it go thru now? * Addendum Note - Nadeen Steiner MD - 11/20/2018 3:03 PM EDT Addended by: NADEEN STEINER on: 11/20/2018 03:03 PM Modules accepted: Orders * Telephone Encounter - Nadeen Steiner MD - 11/20/2018 3:03 PM EDT Dosing adjusted for loading dose for psoriatic arthritis * Telephone Encounter - Tea Saldaña CPhT - 11/20/2018 1:41 PM EDT Jose from [facility] called to request additional information for the Taltz prior auth They need to know the reason why so many injectors are being ordered please advise [phone] Tea Katz Plant Equipment Engineer Pharmacy Refill Call Center 11/20/2018,1:43 PM * Telephone Encounter - Nadeen Steiner MD - 11/19/2018 5:53 PM EDT Signed Prescriptions: Disp Refills Ixekizumab (TALTZ) 80 MG/ML SOAJ 8 Syri*0 Si mg subQ (given as two 80 mg injections) at week 0, followed by 80 mg subQ at weeks 2, 4, 6, 8, 10, and 12, then 80 mg subQ every 4 weeks Authorizing Provider: NADEEN STEINER Ixekizumab (TALTZ) 80 MG/ML SOAJ 5 Syri*5 Sig: Inject 80 mg under the s kin Every Month. Authorizing Provider: NADEEN STEINER * Telephone Encounter - Cuca Segura LPN - 11/19/2018 1:53 PM EDT Pending Prescriptions: Disp Refills Ixekizumab (TALTZ) 80 MG/ML SOAJ 8 Syri*0 Si mg subQ (given as two 80 mg injections) at week 0, followed by 80 mg subQ at weeks 2, 4, 6, 8, 10, and 12, then 80 mg subQ every 4 weeks Ixekizumab (TALTZ) 80 MG/ML SOAJ 5 Syri*5 Sig: Inject 80 mg under the skin Every Month. * Telephone Encounter - Cuca Segura LPN - 11/19/2018 1:53 PM EDT Pending Prescriptions: Disp Refills Ixekizumab (TALTZ) 80 MG/ML SOAJ 8 Syri*0 Si mg subQ (given as two 80 mg injections) at week 0, followed by 80 mg subQ at weeks 2, 4, 6, 8, 10, and 12, then 80 mg subQ every 4 weeks Ixekizumab (TALTZ) 80 MG/ML SOAJ 5 Syri*5 Sig: Inject 80 mg under the skin Every Month. * Telephone Encounter - Tea Saldaña [facility] - 11/19/2018 1:37 PM EDT Kirill from [facility] called to request additional information for the Taltz prior auth this is time sensitive and must be received by FRI AM please call [phone] Thanks, Tea Saldaña Plant Equipment Engineer Pharmacy Refill Call Center 11/19/2018,1:38 PM * Telephone Encounter - Cuca Segura LPN - 11/19/2018 1:12 PM EDT Per [employer] the loading dose cannot be approved for the increased qty since it exceeds the qty approved by the FDA. The next step is a peer to peer. # [phone] * Telephone Encounter - Caitlyn Eugene OSA - 11/19/2018 11:39 AM EDT Pending Prescriptions: Disp Refills Ixekizumab (TALTZ) 80 MG/ML SOAJ 8 Syri*0 Si mg subQ (given as two 80 mg injections) at week 0, followed by 80 mg subQ at weeks 2, 4, 6, 8, 10, and 12, then 80 mg subQ every 4 weeks Ixekizumab (TALTZ) 80 MG/ML SOAJ 5 Syri*5 Sig: Inject 80 mg under the skin Every Month. * Telephone Encounter - Cuca Segura LPN - 11/19/2018 10:31 AM EDT Loading dose was only approved for 1 month, Insurance did not approve the loading dose the way Dr Steiner ordered it ? Her loading dose would need to be approved for 12 weeks, not 1 month right??? Dosing for Taltz:160 mg subQ (given as two 80 mg injections) at week 0, followed by 80 mg subQ at weeks 2, 4, 6, 8, 10, and 12 * Telephone Encounter - Cuca Segura LPN - 11/17/2018 3:04 PM EDT Please auth, thx * Telephone Encounter - Nadeen Steiner MD - 11/17/2018 12:44 PM EDT Please initiate prior authorization for Taltz. Patient has failed treatment with Cosentyx. Please see clinic note from 11/17/2018 Dosing for Taltz: 160 mg subQ (given as two 80 mg injections) at week 0, followed by 80 mg subQ at weeks 2, 4, 6, 8, 10, and 12, then 80 mg subQ every 4 weeks documented in this encounter Plan of Treatment Upcoming Encounters Date Type Specialty Care Team Description 11/28/2018 Pharmacy Pharmacy Medication, [facility]tm Specialty Refill, [address] [address] [phone] 01/21/2019 Pharmacy Pharmacy Medication, [facility]tm Specialty, [address] [address] [phone] 04/06/2019 Office Visit Rheumatology Nadeen Steiner MD [address] [place] [address] Health Maintenance Due Date Last Done Comments Yearly B-12 1943 DIABETES-EYE EXAM 1961 DIABETES-FOOT EXAM 1961 DIABETES-HGBA1C EVERY 6 MONTHS 1961 DTaP,Tdap,and Td Vaccines (1 - Tdap) 1962 PNEUMOCOCCAL ADULT 65 YRS AN D OVER (1 of 2 - PCV13) 2008 COLONOSCOPY-EVERY 5 YRS AGES 18-100 01/04/2014 01/04/2009 *DEPRESSION SCREENING, ANNUA L FOR PTS 18 AND OVER 09/23/2014 *URINE PROTEIN ONCE FOR HTN-DIPSTICK ACCEPTABLE 09/23/2014 *BASIC METABOLIC PANEL (BMP) FOR HTN YEARLY 11/25/2017 Influenza Vaccine (FLU shot) (Season Ended) 2019 MENINGOCOCCAL (MENACTRA) Aged Out No longer eligible based on patient's age to complete this topic documented as of this encounter Implants Not on filedocumented as of this encounter Visit Diagnoses Diagnosis PSA (psoriatic arthritis) (HCC)- Primary Psoriatic arthropathy documented in this encounter Advance Directives Documents on File Type Date Recorded 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
--- OUTSIDE RECORDS SUMMARY | 2023-02-05 23:41 | External Medical Summary | Summary of Care ---
Author [place] [address] Care Team Providers Care Personal Injury Law Specialist Name Role Phone Nimo Stewart MD Primary Care Provider [phone] Reason for Visit * Reason Comments Pre Cert/Prior Auth Saturnino Medication Refill Encounter Details Date Type Department Care Team Description 11/17/2018 [address] [address] Nadeen Steiner MD [address] [place] [address] Pre Cert/Prior Auth ( Saturnino ); Medication ... Allergies Active Allergy Reactions Severity Noted Date Comments Codeine 09/20/2014 documented as of this encounter (statuses as of 12/15/2018) Medications Medication Sig Dispensed Refills Start Date [...] (TALTZ) 80 MG/ML SOAJIndications: PSA (psoriatic arthritis) ([facility]) Inject 80 mg under the skin Every Month. 5 Syringe 5 11/19/2018 Active Ixekizumab (TALTZ) 80 MG/ML SOAJIndications: PSA (psoriatic arthritis) (HCC) 160 mg subcutaneous at week 0 followed by 80 mg subcutaneous every 4 week 2 Syringe 0 11/20/2018 Active Ixekizumab (TALTZ) 80 MG/ML SOAJIndications: PSA (psoriatic arthritis) ([facility]) 160 mg subQ (given as two 80 mg injections) at week 0, followed by 80 mg subQ at weeks 2, 4, 6, 8, 10, and 12, then 80 mg subQ every 4 weeks 8 Syringe 0 11/19/2018 9 Discontinued documented as of this encounter (statuses as of 12/15/2018) Active Problems Problem Noted Date Body mass [...] as of this encounter (statuses as of 12/15/2018) Social History Tobacco Use Types Packs/Day Years [...] Telephone Encounter - Van Smith LPN - 12/15/2018 9:58 AM EDT Approval received placed in scanning. * Telephone Encounter - Cuca Segura LPN - 11/24/2018 7:29 AM EDT No, Dr Steiner changed the dosing to what was covered by his insurance * Telephone Encounter - Rajendra Crowley MD - 11/21/2018 2:40 PM EDT Do we have to do anything else? * Telephone Encounter - Matt Meza RPh - 11/21/2018 1:58 PM EDT Rx received for rupinder trevino able to fill. After insurance and assistance funding previously on file for patient charge to patient is $0. We will reach out to patient to set up delivery Matt Meza [facility], PharmD Specialty Medication Pharmacist [facility] 11/21/2018,1:58 PM * Telephone Encounter - Arie Ponce OSA - 11/21/2018 1:37 PM EDT Kirill calling from [employer] stating the Taltz auto injector was denied the appeal. He will be sending a letter stating the instructions for the next level of appeal. * Telephone Encounter - Tea Saldaña CPhT - 11/21/2018 10:11 AM EDT Kirill from [facility] called to request additional information for prior auth transferred call to scheduling who will get him to Rheumatology front desk specialist Tea Katz Music Assistant Pharmacy Refill Call Center 11/21/2018,10:12 AM * [...] - 11/20/2018 1:41 PM EDT Jose from [facility] called to request additional information for the Taltz prior auth They need to know the reason why so many injectors are being ordered please advise [phone] [facility] Refill Call [facility] 11/20/2018,1:43 PM * [...] Month. * Telephone Encounter - Tea Saldaña CPhT - 11/19/2018 1:37 PM EDT Kirill from [facility] called to request additional information for the Taltz prior auth this is time sensitive and must be received by FRI AM please call [phone] Tea Katz [facility] Assistant Pharmacy Refill Call Center 11/19/2018,1:38 PM * Telephone Encounter - Cuca Segura LPN - 11/19/2018 1:12 PM EDT Per [facility] the loading dose cannot be approved for the increased qty since it exceeds the qty approved by the FDA. The next step is a peer to peer. # [phone] * Telephone Encounter - Caitlyn Eugene OSA [...] Encounters Date Type Specialty Care Team Description 12/29/2018 Pharmacy Pharmacy Medication, [facility], [address] [address] [phone] 01/21/2019 Pharmacy Pharmacy Medication, [facility], [address] [address] [phone] 03/03/2019 Pharmacy Pharmacy Medication, [facility], [address] [place] [address] [phone] 04/06/2019 Office Visit Rheumatology Nadeen Steiner MD [address] [id number] Health Maintenance Due Date Last Done Comments [...] Documents on File Type Date Recorded Patient Police Cadet Expl 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
--- OUTSIDE RECORDS SUMMARY | 2023-02-05 23:41 | External Medical Summary | Summary of Care ---
Author Name Unknown Organization [place] [address] Care Team Providers Care Chief General Pediatric [facility] Name Role Phone Nimo Stewart MD Primary Care Provider [phone] Reason for Visit * Reason Comments Medication Refill Encounter Details Date Type Department Care Team Description 12/29/2018 Pharmacy [facility] [address] [facility], 4th Floor [place], [place] [id number] Medication, [facility], [facility] [address] [facility] [address] [place] [address] Encounter for medication refill* Allergies Active Allergy Reactions Severity Noted Date Comments Codeine 09/20/2014 documented as of this encounter (statuses as of 12/26/2018) Medications Medication Sig Dispensed Refills Start Date [...] (TALTZ) 80 MG/ML SOAJIndications:PS A (psoriatic arthritis) ([facility]) Inject 80 mg under the skin Every Month. 5 Syringe 5 11/19/2018 Active Ixekizumab (TALTZ) 80 MG/ML SOAJIndications:PS A (psoriatic arthritis) ([facility]) 160 mg subcutaneous at week 0 followed by 80 mg subcutaneous every 4 week 2 Syringe 0 11/20/2018 Active documented as of this encounter (statuses as of 12/26/2018) Active Problems Problem Noted Date Body mass [...] as of this encounter (statuses as of 12/26/2018) Social History Tobacco Use Types Packs/Day Years Used Date Never Smoker Smokeless Tobacco: Never Used Alcohol Use Drinks/Week oz/Week Comments Yes 1-2 drinks/bam h Sex Assigned at Date Recorded Not on file Job Start Date Occupation Industry Not on file Not on file Not on file Travel History Travel Start Travel End documented as of this encounter Progress Notes * Mary Garsia PHARM Tech - 12/26/2018 4:46 PM EDT [facility] REFILL CALL NOTE Sar[place] [id number] Patient is a 73 year old male on the schedule today for a telephone call concerning their refill oftaltz. Spoke to stephanie Murphy Does patient have any questions regarding medication(s)? no Is patient having difficulty taking medication(s) as prescribed? no Does patient have any concerns or complaints regarding possible side effects of medication(s)? no How much medication does patient have left in present supply? none Would patient like to schedule refill of medication today which will be shipped when patient has approximately 1 week left on present supply? yes Shipment date: 12/30/2018 Delivery method:UPS Location Medication Delivered too? Home Discussed copay of prescription?:no Discussed outstanding balance?:no Discussed payment options?:no Medication shipped to: [address] [place] [address] Satisfaction survey: n/a Patient reminded that they will be receiving a telephone call from pharmacy to schedule their next refill when they have approximately 1 week of medication remaining. In the interim, patient advised to call pharmacy should they have any questions or concerns. 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
--- OUTSIDE RECORDS SUMMARY | 2023-02-05 23:41 | External Medical Summary | Summary of Care ---
Author Name Unknown Organization [place] [address] Care Team Providers Care Wall Taper Helper Name Role Phone Nimo Stewart MD Primary Care Provider [phone] Reason for Visit * Reason Comments Medication Refill Encounter Details Date Type Department Care Team Description 05/22/2019 Pharmacy [facility] [address] [facility], 4th [address] [place], [place] [id number] Medication, [facility] Refill, [facility] [address] [facility] [address] [place] [address] Encounter for medication refill* Allergies Active Allergy Reactions Severity Noted Date Comments Codeine 09/20/2014 documented as of this encounter (statuses as of 05/25/2019) Medications Medication Sig Dispensed Refills Start Date [...] (TALTZ) 80 MG/ML SOAJIndications:PSA (psoriatic arthritis) ([facility]) Inject 80 mg under the skin Every Month. 5 Syringe 5 11/19/2018 Active predniSONE (DELTASONE) 5 MG TabletIndications:P soriatic arthritis (HCC) 7.5 mg daily from 04/06-04/18/19 then 5 mg daily 100 Tab 1 04/06/2019 Active documented as of this encounter (statuses as of 05/25/2019) Active Problems Problem Noted Date Body mass [...] as of this encounter (statuses as of 05/25/2019) Social History Tobacco Use Types Packs/Day Years Used Date Never Smoker Smokeless Tobacco: Never Used Alcohol Use Drinks/Week oz/Week Comments Yes 1-2 drinks/bam h Sex Assigned at Date Recorded Not on file Job Start Date Occupation Industry Not on file Not on file Not on file Travel History Travel Start Travel End documented as of this encounter Progress Notes * Xiao Paiz CPhT - 05/25/2019 2:37 PM EST 1st call belinda no answer left vm Xiao Paiz Bakery Worker [facility] 05/25/2019,2:38 PM documented in this encounter Plan of Treatment Upcoming Encounters Date Type Specialty Care Team Description 06/01/2019 Pharmacy Pharmacy Medication, [facility] Refill, [facility] [address] [place] [address] [phone] 09/09/2019 Office Visit Rheumatology Nadeen Steiner MD [address] [place] [address] 03/28/2020 Pharmacy Pharmacy Medication, [facility], [facility] [address] [address] [phone] Health Maintenance Due Date Last Done Comments [...] Documents on File Type Date Recorded Patient Dust Mixer Expl 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
--- OUTSIDE RECORDS SUMMARY | 2023-02-05 23:41 | External Medical Summary | Summary of Care ---
Author Name Unknown Organization [place] [address] Care Team Providers Care Marine Electrician Helper Name Role Phone Nimo Stewart MD Primary Care Provider [phone] Reason for Visit * Reason Comments Medication Management Education Encounter Details Date Type Department Care Team Description 11/28/2018 Pharmacy [facility] [address] [facility], 4th Floor [place], [place] [id number] Medication, [facility], [facility] [address] [facility] [address] [place] [address] Encounter for medication refill* Allergies Active Allergy Reactions Severity Noted Date Comments Codeine 09/20/2014 documented as of this encounter (statuses as of 12/01/2018) Medications Medication Sig Dispensed Refills Start Date [...] SOAJIndications:PS A (psoriatic arthritis) ([facility]) Inject 80 mg under the skin Every Month. 5 Syringe 5 11/19/2018 Active Ixekizumab (TALTZ) 80 MG/ML SOAJIndications:PS A (psoriatic arthritis) ([facility]) 160 mg subcutaneous at week 0 followed by 80 mg subcutaneous every 4 week 2 Syringe 0 11/20/2018 Active documented as of this encounter (statuses as of 12/01/2018) Active Problems Problem Noted Date Body mass [...] as of this encounter (statuses as of 12/01/2018) Social History Tobacco Use Types Packs/Day Years Used Date Never Smoker Smokeless Tobacco: Never Used Alcohol Use Drinks/Week oz/Week Comments Yes 1-2 drinks/bam h Sex Assigned at Date Recorded Not on file Job Start Date Occupation Industry Not on file Not on file Not on file Travel History Travel Start Travel End documented as of this encounter Progress Notes * Matt Meza, [facility] - 12/01/2018 10:24 AM EDT Medication Therapy Management Specialty Pharmacy Assessment Initial Note Name: Sarwat Campbell Patient is a 73 year old male presently being assessed for Autoimmune, Psoriatic Arthritis (PsA). After providing patient with a thorough explanation and introduction to program, patient agrees to program/counseling. Indication for treatment:: psoriasis Indication confirmed with patient? yes. Date of diagnosis: unsure. Drug allergies: unknown. Depression Screenin. Little interest or pleasure in doing things - 0 2. Feeling down, depressed or hopeless - 0 Scoring for each: Not at all = 0, Several days = 1, More than half the days = 2, Nearly every day =3 Current medication regimen for above noted indication: taltz Formulation: pen Date of initiation of present therapy: unsure. Is this a new therapy? yes Stop date for present therapy: not applicable at this time. Prior DMARD Therapy: Prior history of DMARD? No Dosage/Administration: Is patient aware of correct dose, timing, formulation, and frequency of administration? yes Assessment of education: thorough understanding. Education provided today: yes; verbal. Is patient aware of what to do if dose missed? yes. Assessment of education: thorough understanding. Education provided today: yes; verbal. If injectable medication, has physician coordinated patient training on proper administration? YES. Assessment of education: thorough understanding. Education provided today: yes; verbal. If injectable medication, does patient request to be connected with personnel able to provide on-site training? yes; connected. If injectable medication, does patient want information on proper administration? yes; verbal. Side effects: Has physician reviewed with patient the common side effects associated with above noted medication?yes. Can patient list any of the common side effects of this medication? yes. Assessment of education: thorough understanding. Education provided today: yes; verbal. Has physician reviewed with patient the serious side effects associated with taltz and when to contact him/her? yes. Can patient list any of the serious side effects that warrant follow-up by physician? yes. Assessment of education: thorough understanding. Education provided today: yes; verbal. Precautions: Has physician reviewed with patient safety precautions prior to initiating medication? yes. Can patient list any of the safety precautions? yes. Assessment of education: thorough understanding. Education provided today: yes; verbal. Contraindications: Has physician discussed with patient contraindications or things to absolutely avoid while on taltz? yes. Assessment of education: thorough understanding. Education provided today: yes; verbal. Drug Interactions: Has physician reviewed with patient which medications have the potential to interact with taltz? yes. Assessment of education: thorough understanding. Education provided today: yes; verbal. Storage: Has physician reviewed with patient proper storage of taltz? yes. Can patient explain proper storage of taltz? yes. Assessment of education: thorough understanding. Education provided today: yes; verbal. Is patient aware of how to properly dispose of taltz? yes. Assessment of education: thorough understanding. Education provided today: yes; verbal. Concomitant Medication(s): Current prescription medications being used for above noted indication: taltz Current prescription medications for other indications: no new medications OTC medications/herbal remedies: no new OTC/herbals Has the patient previously been treated for this condition? Yes Therapies previously tried for above noted indication: cosentyx; discontinued due to: Inefficacy Impairment: Number of work/school days missed in last month due to above noted condition: 0. Number of days less productive in last 3 months due to above noted condition: 0. Intervention: initial onboarding: no issues Medication Shipment Information: Prior authorization date: unknown Discussed delivery procedure? yes; patient verbalized understanding Location Medication Delivered too? Home Discussed refill procedure? yes; patient verbalized understanding Discussed copay of prescription? yes; patient verbalized understanding Discussed payment options? yes; patient verbalized understanding Shipment date: 12/02/2018 Patient advised signature required upon receipt of shipment? yes; patient verbalized understanding Medication to be shipped to: [address] [place] [address] Patient gave clinic permission to discuss care with family member/caregiver: n/a Miscellaneous Clinic Notes: not applicable Matt Meza RPh Clinical Pharmacist 12/01/2018, 10:24 AM * Brinda Chester RPh - 11/28/2018 1:47 PM EDT LM for patient; new start Taltz. Brinda Chester RPh, Pharm D Specialty Medication Pharmacist [facility] 11/28/2018,1:48 PM documented in this encounter Plan of Treatment Upcoming Encounters Date Type Specialty Care Team Description 12/29/2018 Pharmacy Pharmacy Medication, [facility], [address] [address] [phone] 01/21/2019 Pharmacy Pharmacy Medication, [facility], [address] [address] 03/03/2019 Pharmacy Pharmacy Medication, [facility] Specialty, [address] [address] [phone] 04/06/2019 Office Visit Rheumatology Nadeen Steiner MD [address] [place] [address] Health Maintenance Due Date Last Done Comments Yearly B-12 1943 DIABETES-EYE EXAM 1961 DIABETES-FOOT EXAM 1961 DIABETES-HGBA1C EVERY 6 MONTHS 1961 DTaP,Tdap,and Td Vaccines (1 - Tdap) 1962 PNEUMOCOCCAL ADULT 65 YRS AN D OVER (1 of 2 - PCV13) 2008 COLONOSCOPY-EVERY 5 YRS AGES 18-100 01/04/2014 01/04/2009 *DEPRESSION SCREENING, DEEPAUA Janneth FOR PTS 18 AND OVER 09/23/2014 *URINE [...] Documents on File Type Date Recorded Patient Cutting Department Supervisor Expl 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
--- OUTSIDE RECORDS SUMMARY | 2023-02-05 23:41 | External Medical Summary | Summary of Care ---
Author Name Unknown Organization [place] [address] Care Team Providers Care Coater Slate Name Role Phone Nimo Stewart MD Primary Care Provider [phone] Reason for Visit * Reason Comments Medication Refill Encounter Details Date Type Department Care Team Description 06/01/2019 Pharmacy [facility] [address] [facility], 4th Floor [place], [place] [id number] Medication, [facility] Refill, [facility] [address] [facility] [address] [place] [address] Encounter for medication refill* Allergies Active Allergy Reactions Severity Noted Date Comments Codeine 09/20/2014 documented as of this encounter (statuses as of 06/04/2019) Medications Medication Sig Dispensed Refills Start Date [...] 80 MG/ML SOAJIndications:PSA (psoriatic arthritis) ([facility]) Inject 80 mg under the skin Every Month. 5 Syringe 5 11/19/2018 Active predniSONE (DELTASONE) 5 MG TabletIndications:P soriatic arthritis (HCC) 7.5 mg daily from 04/06-04/18/19 then 5 mg daily 100 Tab 1 04/06/2019 Active documented as of this encounter (statuses as of 06/04/2019) Active Problems Problem Noted Date Body mass [...] as of this encounter (statuses as of 06/04/2019) Social History Tobacco Use Types Packs/Day Years [...] Notes * Chasidy Chan PHARM Tech - 06/04/2019 1:24 PM EST [facility] REFILL CALL NOTE Sarwat Ochoa Shannan [id number] Patient is a 74 year old male [...] left on present supply? yes Shipment date: 06/11/2019 Delivery method:UPS Location Medication Delivered too? Home Discussed copay of prescription?:yes; patient verbalized understanding Discussed outstanding balance?:no Discussed payment options?:yes; patient verbalized understanding Medication shipped to:[address] [place] [address] Satisfaction survey: Na Patient reminded that they will be receiving a telephone call from pharmacy to schedule their next refill when they have approximately 1 week of medication remaining. In the interim, patient advised to call pharmacy should they have any questions or concerns. ALEXANDRIA Joshi Tech 06/04/2019, 1:24 PM documented in this encounter Plan of Treatment Upcoming Encounters Date Type Specialty Care Team Description 06/29/2019 Pharmacy Pharmacy Medication, [facility] Refill, [address] [address] [phone] 09/09/2019 Office Visit Rheumatology Nadeen [facility] [place] [address] 03/28/2020 Pharmacy Pharmacy Medication, [facility], [address] [address] [phone] Health Maintenance Due Date Last Done Comments [...] Documents on File Type Date Recorded Patient 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
--- OUTSIDE RECORDS SUMMARY | 2023-02-05 23:41 | External Medical Summary | Summary of Care ---
Author Name Unknown Organization [facility] [address] Care Team Providers Care Embossing Press Operator Molded Goods Name Role Phone Nimo Stewart MD Primary Care Provider [phone] Reason for Visit * Reason Comments Medication Refill Encounter Details Date Type Department Care Team Description 04/21/2019 Pharmacy [facility] [address] [facility], 4th Floor [place], [place] [id number] Medication, [facility] Special[facility] Refill, Formerly [facility] [address] [facility] [address] [place] [address] Encounter for medication refill* Allergies Active Allergy Reactions Severity Noted Date Comments Codeine 09/20/2014 documented as of this encounter (statuses as of 04/24/2019) Medications Medication Sig Dispensed Refills Start Date [...] Ixekizumab (TALTZ) 80 MG/ML SOAJIndications:PSA (psoriatic arthritis) ([facility]) Inject 80 mg under the skin Every Month. 5 Syringe 5 11/19/2018 Active predniSONE (DELTASONE) 5 MG TabletIndications:P soriatic arthritis (HCC) 7.5 mg daily from 04/06-04/18/19 then 5 mg daily 100 Tab 1 04/06/2019 Active documented as of this encounter (statuses as of 04/24/2019) Active Problems Problem Noted Date Body mass [...] as of this encounter (statuses as of 04/24/2019) Social History Tobacco Use Types Packs/Day Years Used Date Never Smoker Smokeless Tobacco: Never Used Alcohol Use Drinks/Week oz/Week Comments Yes 1-2 drinks/bam h Sex Assigned at Date Recorded Not on file Job Start Date Occupation Industry Not on file Not on file Not on file Travel History Travel Start Travel End documented as of this encounter Progress Notes * Kortney Whaley OSA - 04/24/2019 3:34 PM EST [facility] REFILL CALL NOTE Sarwat Ochoa Shannan [id number] Patient is a 73 year old male on the schedule today for a telephone call concerning their refill oftaltz. Spoke to patient Does patient have any questions regarding medication(s)? no Is patient having difficulty taking medication(s) as prescribed? no Any medication changes (including OTC/herbals)? Did not ask. Any new co-morbidities? no Patient account of regimen effectiveness: improvement in condition/symptoms Does patient have any concerns or complaints regarding possible side effects of medication(s)? no How much medication does patient have left in present supply? 0 Would patient like to schedule refill of medication today which will be shipped when patient has approximately 1 week left on present supply? yes Shipment date: 04-28-19 Delivery method:UPS Location Medication Delivered too? Home Discussed copay of prescription?:yes; patient verbalized understanding Discussed outstanding balance?:no Discussed payment options?:no Medication shipped to:[address] [place] [phone] Satisfaction survey: n/a Patient reminded that they will be receiving a telephone call from pharmacy to schedule their next refill when they have approximately 1 week of medication remaining. In the interim, patient advised to call pharmacy should they have any questions or concerns. LIDYA Allison 04/24/2019, 3:36 PM documented in this encounter Plan of Treatment Upcoming Encounters Date Type Specialty Care Team Description 05/22/2019 Pharmacy Pharmacy Medication, [facility] Ref[facility], [address] [address] [phone] 09/09/2019 Office Visit Rheumatology Nadeen Steiner MD [address] [place] [address] 03/28/2020 Pharmacy Pharmacy Medication, [facility], [address] [address] [phone] Health Maintenance Due Date Last Done Comments Yearly B-12 1943 DTaP,Tdap,and Td Vaccines (1 - Tdap) 1954 DIABETES-EYE EXAM 1961 DIABETES-FOOT EXAM 1961 DIABETES-HGBA1C EVERY 6 MONTHS 1961 Pneumococcal Vaccine: 65+ Ye ars (1 of [...] Documents on File Type Date Recorded Patient Clinical Research Manager Expl 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
--- OUTSIDE RECORDS SUMMARY | 2023-02-05 23:41 | External Medical Summary | Summary of Care ---
Author Name Unknown Organization [place] [address] Care Team Providers Care Broadcast Systems Engineer Name Role Phone Nimo Stewart MD Primary Care Provider [phone] Reason for Visit * Reason Comments Medication Refill Encounter Details Date Type Department Care Team Description 01/22/2019 Pharmacy [facility] [address] [facility], 4th Floor [place], [place] [id number] Medication, [facility] Specialty Refill, [facility] [address] [facility] [address]th [place] [address] Encounter for medication refill* Allergies [...] (TALTZ) 80 MG/ML SOAJIndications:PS A (psoriatic arthritis) ([facility]) Inject 80 mg under the skin Every Month. 5 Syringe 5 11/19/2018 Active Ixekizumab (TALTZ) 80 MG/ML SOAJIndications:PS A (psoriatic arthritis) ([facility]) 160 mg subcutaneous at week 0 [...] Nuñez OSA - 01/23/2019 10:[address] [facility] REFILL CALL NOTE Sarwat Campbell [id number] Patient is a 73 year old male [...] options?:yes; patient verbalized understanding Medication shipped to: [address] [place] [address] Satisfaction survey: n/a Patient reminded that they [...] Encounters Date Type Specialty Care Team Description 03/03/2019 Pharmacy Pharmacy Medication, [facility] Specialty, [address] [place] [address] [phone] 04/06/2019 Office Visit Rheumatology Nadeen Steiner MD [...] Documents on File Type Date Recorded Patient Engineering Agent Expl 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
--- OUTSIDE RECORDS SUMMARY | 2023-02-05 23:41 | External Medical Summary | Summary of Care ---
Author Name Unknown Organization [place] [address] Care Team Providers Care Patternmaker Helper Name Role Phone Nimo Stewart MD Primary Care Provider [phone] Reason for Visit * Reason Comments Medication Refill Encounter Details Date Type Department Care Team Description 02/23/2019 Pharmacy [facility] [address] [facility], 4th Floor [place], [place] [id number] Medication, [facility] Specialty Refill, [facility] [address] [facility] [address] [place] [address] Encounter for medication refill* Allergies Active Allergy Reactions Severity Noted Date Comments Codeine 09/20/2014 documented as of this encounter (statuses as of 02/26/2019) Medications Medication Sig Dispensed Refills Start Date [...] (TALTZ) 80 MG/ML SOAJIndications:PS A (psoriatic arthritis) ([facility]) Inject 80 mg under the skin Every Month. 5 Syringe 5 11/19/2018 Active Ixekizumab (TALTZ) 80 MG/ML SOAJIndications:PS A (psoriatic arthritis) ([facility]) 160 mg subcutaneous at week 0 followed by 80 mg subcutaneous every 4 week 2 Syringe 0 11/20/2018 Active documented as of this encounter (statuses as of 02/26/2019) Active Problems Problem Noted Date Body mass [...] as of this encounter (statuses as of 02/26/2019) Social History Tobacco Use Types Packs/Day Years [...] Notes * Chasidy Chan PHARM Tech - 02/26/2019 12:17 PM EDT [facility] REFILL CALL NOTE Sarwat Campbell [id number] Patient is a 73 year old male on the schedule today for a telephone call concerning their refill ofTaltz. Spoke to - Katherine Does patient have any questions regarding medication(s)? no Is patient having difficulty taking medication(s) as prescribed? no Any medication changes (including OTC/herbals)? Did not ask Any new co-morbidities? Did not ask Patient account of regimen effectiveness: did not ask Does patient have any concerns or complaints regarding possible side effects of medication(s)? no How much medication does patient have left in present supply? none Would patient like to schedule refill of medication today which will be shipped when patient has approximately 1 week left on present supply? yes Shipment date: 03/03/2019 Delivery method:UPS Location Medication Delivered too? Home Discussed copay of prescription?:yes; patient verbalized understanding Discussed outstanding balance?:no Discussed payment options?:no Medication shipped to:[address] [place] [address] Satisfaction survey: NA Patient reminded that they will be receiving a telephone call from pharmacy to schedule their next refill when they have approximately 1 week of medication remaining. In the interim, patient advised to call pharmacy should they have any questions or concerns. ALEXANDRIA Joshi 02/26/2019, 12:18 PM documented in this encounter Plan of Treatment Upcoming Encounters Date Type Specialty Care Team Description 03/03/2019 Pharmacy Pharmacy Medication, [facility] Special[facility], [facility] [address] [place] [address] [phone] 03/27/2019 Pharmacy Pharmacy Medication, [facility], [facility] [address] [place] [address] [phone] 04/06/2019 Office Visit Rheumatology Nadeen Steiner MD [address] [place] [address] [phone] Health Maintenance Due Date Last Done Comments [...] Documents on File Type Date Recorded Patient Therapist Asst Expl 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
--- OUTSIDE RECORDS SUMMARY | 2023-02-05 23:41 | External Medical Summary | Summary of Care ---
Author Name [place] [address] Care Team Providers Care Wireless Watcher Name Role Phone Nimo Stewart MD Primary Care Provider [phone] Reason for Visit * Reason Comments Pre Cert/Prior Auth [place] Medication Refill Encounter Details Date Type Department Care Team Description 11/17/2018 [address] [address] Nadeen Steiner MD 21 [place] [address] Pre Cert/Prior Auth ( [place] [...] MG/ML SOAJIndications: PSA (psoriatic arthritis) ([facility]) Inject 80 mg under the skin Every Month. 5 Syringe 5 11/19/2018 Active Ixekizumab (TALTZ) 80 MG/ML SOAJIndications: PSA (psoriatic arthritis) (HCC) 160 mg subcutaneous at week 0 followed by 80 mg subcutaneous every 4 week 2 Syringe 0 11/20/2018 Active Ixekizumab (TALTZ) 80 MG/ML SOAJIndications: PSA (psoriatic arthritis) ([facility]) 160 mg subQ (given as two 80 [...] patient to set up delivery Matt Meza [facility], PharmD Specialty Medication Pharmacist [facility] 11/21/2018,1:58 PM * Telephone Encounter - Arie Ponce OSA - 11/21/2018 1:37 PM EDT Kirill calling from [employer] stating the Taltz auto injector was denied the appeal. He will be sending a letter stating the instructions for the next level of appeal. * Telephone Encounter - Tea Saldaña CPhT - 11/21/2018 10:11 AM EDT Kirill from [employer] called to request additional information for prior auth transferred call to scheduling who will get him to Rheumatology waterfront director Tea Katz [employer] Pharmacy Refill Call Center 11/21/2018,10:12 AM * [...] Saldaña CPhT - 11/20/2018 1:41 PM EDT Joes from [facility] called to request additional information for the Taltz prior auth They need to know the reason why so many injectors are being ordered please advise [phone] Tea Katz [facility] [employer] Pharmacy Refill Call Center 11/20/2018,1:43 PM * [...] - 11/19/2018 1:37 PM EDT Kirill from [facility] called to request additional information for the Taltz prior auth this is time sensitive and must be received by FRI AM please call [phone] Thanks, Tea Saldaña [facility] Pharmacy Refill Call Center 11/19/2018,1:38 PM * Telephone Encounter - Cuca Segura LPN - 11/19/2018 1:12 PM EDT Per [facility] the loading dose cannot be approved for the increased qty since it exceeds the qty approved by the FDA. The next step is a peer to peer. # [phone] * Telephone Encounter - Caitlyn Eugene OSA [...] 11/28/2018 Pharmacy Pharmacy Medication, [facility] Special[facility] Refill, [facility] [address] [address] [phone] 01/21/2019 Pharmacy Pharmacy Medication, [facility], [address] [address] [phone] 04/06/2019 Office [facility] [address] Health Maintenance Due Date Last Done Comments Yearly B-12 1945 DIABETES-EYE EXAM 1961 DIABETES-FOOT EXAM 1961 DIABETES-HGBA1C EVERY 6 MONTHS 1961 DTaP,Tdap,and Td Vaccines (1 - Tdap) 1962 PNEUMOCOCCAL ADULT 65 YRS AN D OVER (1 of 2 - PCV13) 2008 COLONOSCOPY-EVERY 5 YRS AGES 18-100 01/04/2014 01/04/2009 *DEPRESSION SCREENING, CARRIE Lagunas FOR PTS 18 AND OVER 09/23/2014 *URINE [...] on File Type Date Recorded Patient Electrical High Tension Tester Expl 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
--- OUTSIDE RECORDS SUMMARY | 2023-02-05 23:41 | External Medical Summary | Summary of Care ---
Author [place] [address] Care Team Providers Care Shipping Clerk Crating Name Role Phone Nimo Stewart MD Primary Care Provider [phone] Reason for Visit * Reason Comments Pre Cert/Prior Auth [place] Medication Refill Encounter Details Date Type Department Care Team Description 11/17/2018 [address] [address] Nadeen Steiner MD [address] [place] [address] Pre Cert/Prior Auth ( [place] [...] (TALTZ) 80 MG/ML SOAJIndications: PSA (psoriatic arthritis) ([facility]) Inject 80 mg under the skin Every Month. 5 Syringe 5 11/19/2018 Active Ixekizumab (TALTZ) 80 MG/ML SOAJIndications: PSA (psoriatic arthritis) (HCC) 160 mg subcutaneous at week 0 followed by 80 mg subcutaneous every 4 week 2 Syringe 0 11/20/2018 Active Ixekizumab (TALTZ) 80 MG/ML SOAJIndications: PSA (psoriatic arthritis) ([facility]) 160 mg subQ (given as [...] encounter Miscellaneous Notes * Telephone Encounter - Arie Ponce OSA - 11/21/2018 1:37 PM EDT Kirill calling from [email or web address] stating the Taltz auto injector was denied the appeal. He will be sending a letter stating the instructions for the next level of appeal. * Telephone Encounter - Tea Saldaña CPhT - 11/21/2018 10:11 AM EDT Kirill from [email or web address] called to request additional information for prior auth transferred call to scheduling who will get him to Rheumatology front desk auxiliary Thanks, Tea Saldaña Marketing Consultant Pharmacy Refill Call Center 11/21/2018,10:12 AM * [...] - 11/20/2018 1:41 PM EDT Jose from [facility] called to request additional information for the Taltz prior auth They need to know the reason why so many injectors are being ordered please advise [phone] Thanks, Tea Saldaña Marketing Consultant Pharmacy Refill Call Center 11/20/2018,1:43 PM * [...] - 11/19/2018 1:37 PM EDT Kirill from [facility] called to request additional information for the Taltz prior auth this is time sensitive and must be received by FRI AM please call [phone] Tea Katz Marketing Consultant Pharmacy Refill Call Center 11/19/2018,1:38 PM * Telephone Encounter - Cuca Segura LPN - 11/19/2018 1:12 PM EDT Per [facility] the loading dose cannot be approved for the increased qty since it exceeds the qty approved by the FDA. The next step is a peer to peer. # [phone] * Telephone Encounter - Caitlyn Eugene OSA [...] Care Team Description 11/28/2018 Pharmacy Pharmacy Medication, [facility] Specialty Refill, [address] [address] [phone] 01/21/2019 Pharmacy Pharmacy Medication, [facility] Specialty, [address] [address] [phone] 04/06/2019 Office Visit Rheumatology Nadeen Steiner MD [address] [place] [address] Health Maintenance Due Date Last Done [...] Documents on File Type Date Recorded Patient Tierce Filler Expl 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
--- OUTSIDE RECORDS SUMMARY | 2023-02-05 23:41 | External Medical Summary | Summary of Care ---
Author Name [place] [address] Care Team Providers Care Equity Holder Name Role Phone Nimo Stewart MD Primary Care Provider [phone] Reason for Visit * Reason Comments Pre Cert/Prior Auth [place] Medication Refill Encounter Details Date Type Department Care Team Description 11/17/2018 [address] [address] Nadeen Steiner MD [address] [place] [address] Pre Cert/Prior Auth ( [place] [...] MG/ML SOAJIndications: PSA (psoriatic arthritis) ([facility]) Inject 80 mg under the skin Every Month. 5 Syringe 5 11/19/2018 Active Ixekizumab (TALTZ) 80 MG/ML SOAJIndications: PSA (psoriatic arthritis) (HCC) 160 mg subcutaneous at week 0 followed by 80 mg subcutaneous every 4 week 2 Syringe 0 11/20/2018 Active Ixekizumab (TALTZ) 80 MG/ML SOAJIndications: PSA (psoriatic arthritis) ([facility]) 160 mg subQ (given as two 80 [...] Alcohol Use Drinks/Week oz/Week Comments Yes 1-2 drinks/bma h Sex Assigned at Date Recorded Not [...] patient to set up delivery Matt Meza [facility], PharmD Specialty Medication Pharmacist [facility] Rx 11/21/2018,1:58 PM * Telephone Encounter - Arie Ponce OSA - 11/21/2018 1:37 PM EDT Kirill calling from [employer] stating the Taltz auto injector was denied the appeal. He will be sending a letter stating the instructions for the next level of appeal. * Telephone Encounter - Tea Saldaña CPhT - 11/21/2018 10:11 AM EDT Kirill from [facility] called to request additional information for prior auth transferred call to scheduling who will get him to Rheumatology front end ui developer Tea Katz [employer] Pharmacy Refill Call Center 11/21/2018,10:12 AM * [...] - 11/20/2018 1:41 PM EDT Jose from [facility] called to request additional information for the Taltz prior auth They need to know the reason why so many injectors are being ordered please advise [phone] Tea Katz [facility] [employer] [facility] Pharmacy Refill Call Center 11/20/2018,1:43 PM * [...] Every Month. * Telephone Encounter - Tea Saldaña, [facility] - 11/19/2018 1:37 PM EDT Kirill [employer] called to request additional information for the Taltz prior auth this is time sensitive and must be received by FRI AM please call [phone] Thanks, Tea Saldaña [facility] [employer] [facility] Pharm[facility] Refill Call Center 11/19/2018,1:38 PM * Telephone Encounter - Cuca Segura LPN - 11/19/2018 1:12 PM EDT Per [employer] the loading dose cannot be approved for the increased qty since it exceeds the qty approved by the FDA. The next step is a peer to peer. # [phone] * Telephone Encounter - Caitlyn Eugene OSA [...] Care Team Description 11/28/2018 Pharmacy Pharmacy Medication, [facility], [address] [address] [phone] 01/21/2019 Pharmacy Pharmacy Medication, [facility], [address] [address] [phone] 04/06/2019 Office Visit Rheumatology Nadeen Steiner MD [address] [place] [address] Health Maintenance Due Date Last [...] Documents on File Type Date Recorded Patient Juvenile Counselor Expl 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
--- OUTSIDE RECORDS SUMMARY | 2023-02-05 23:41 | External Medical Summary | Summary of Care ---
Author [place] [address] Care Team Providers Care Linux Devops Engineer Name Role Phone Nimo Stewart MD Primary Care Provider [phone] Reason for Visit * Reason Comments Pre Cert/Prior Auth Saturnino Medication Refill Encounter Details Date Type Department Care Team Description 11/17/2018 [address]phone [address] [address] Nadeen Steiner MD [address] [place] [address] Pre Cert/Prior Auth ( Saturnino ); Medication ... Allergies Active Allergy Reactions Severity Noted Date Comments Codeine 09/20/2014 documented as of this encounter (statuses as of 11/24/2018) Medications Medication Sig Dispensed Refills Start Date [...] 80 MG/ML SOAJIndications: PSA (psoriatic arthritis) ([facility]) Inject 80 mg under the skin Every Month. 5 Syringe 5 11/19/2018 Active Ixekizumab (TALTZ) 80 MG/ML SOAJIndications: PSA (psoriatic arthritis) (HCC) 160 mg subcutaneous at week 0 followed by 80 mg subcutaneous every 4 week 2 Syringe 0 11/20/2018 Active Ixekizumab (TALTZ) 80 MG/ML SOAJIndications: PSA (psoriatic arthritis) ([facility]) 160 mg subQ (given as two 80 mg injections) at week 0, followed by 80 mg subQ at weeks 2, 4, 6, 8, 10, and 12, then 80 mg subQ every 4 weeks 8 Syringe 0 11/19/2018 9 Discontinued documented as of this encounter (statuses as of 11/24/2018) Active Problems Problem Noted Date Body mass [...] as of this encounter (statuses as of 11/24/2018) Social History Tobacco Use Types Packs/Day Years [...] patient to set up delivery Matt Meza [facility], PharmD Specialty Medication Pharmacist [facility] 11/21/2018,1:58 PM * Telephone Encounter - Arie Ponce OSA - 11/21/2018 1:37 PM EDT Kirill calling from [employer] stating the Taltz auto injector was denied the appeal. He will be sending a letter stating the instructions for the next level of appeal. * Telephone Encounter - Tea Saldaña CPhT - 11/21/2018 10:11 AM EDT Kirill from [employer] called to request additional information for prior auth transferred call to scheduling who will get him to Rheumatology manager front office Thanks, Tea Saldaña Manufactured Buildings Repairer Pharmacy Refill Call Center 11/21/2018,10:12 AM * [...] - 11/20/2018 1:41 PM EDT Jose from [facility] called to request additional information for the Taltz prior auth They need to know the reason why so many injectors are being ordered please advise [phone] Thanks, Tea Saldaña Manufactured Buildings Repairer Pharmacy Refill Call Center 11/20/2018,1:43 PM * [...] - 11/19/2018 1:37 PM EDT Kirill from [facility] called to request additional information for the Taltz prior auth this is time sensitive and must be received by FRI AM please call [phone] Thanks, Tea Saldaña Manufactured Buildings Repairer Pharmacy Refill Call Center 11/19/2018,1:38 PM * Telephone Encounter - Cuca Segura LPN - 11/19/2018 1:12 PM EDT Per [facility] the loading dose cannot be approved for the increased qty since it exceeds the qty approved by the FDA. The next step is a peer to peer. # [phone] * Telephone Encounter - Caitlyn Eugene OSA [...] 11/28/2018 Pharmacy Pharmacy Medication, [facility] Special[facility] Refill, [facility] [address] [place] [address] [phone] 01/21/2019 Pharmacy Pharmacy Medication, [facility] Specialty, [facility] [address] [place] [address] [phone] 04/06/2019 Office Visit Rheumatology Nadeen Steiner MD [address] [place] [id number] Health Maintenance Due Date Last Done Comments [...] Documents on File Type Date Recorded Patient Sales And Training Specialist Expl 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
--- OUTSIDE RECORDS SUMMARY | 2023-02-05 23:42 | External Medical Summary | Summary of Care ---
Author Name [place] [address] Care Team Providers Care Profiler Name Role Phone Nimo Stewart MD Primary Care Provider [phone] Reason for Visit * Reason Comments Pre Cert/Prior Auth Saturnino Medication Refill Encounter Details Date Type Department Care Team Description 11/17/2018 [address]phone [address] [address] Nadeen Steiner MD [address] [place] [address] Pre Cert/Prior Auth ( Saturnino [...] arthritis) ([facility]) 160 mg subQ (given as [...] 11/21/2018 1:37 PM EDT Kirill calling from [employer] stating the Taltz auto injector was denied the appeal. He will be sending a letter stating the instructions for the next level of appeal. * Telephone Encounter - Tea Saldaña CPhT - 11/21/2018 10:11 AM EDT Kirill from [employer] called to request additional information for prior auth transferred call to scheduling who will get him to Rheumatology front end driver Thanks, Tea Saldaña Registered Respiratory Technician Pharmacy Refill Call Center 11/21/2018,10:12 AM * [...] - 11/20/2018 1:41 PM EDT Jose from [facility] called to request additional information for the Taltz prior auth They need to know the reason why so many injectors are being ordered please advise [phone] Thanks, Tea Saldaña Registered Respiratory Technician Pharmacy Refill Call Center 11/20/2018,1:43 PM * [...] s kin Every Month. Authorizing Provider: NADEEN TSEINER * Telephone Encounter - Cuca Segura LPN [...] - 11/19/2018 1:37 PM EDT Kirill from [facility] called to request additional information for the Taltz prior auth this is time sensitive and must be received by FRI AM please call [phone] Tea Katz Registered Respiratory Technician Pharmacy Refill Call Center 11/19/2018,1:38 PM * Telephone Encounter - Cuca Segura LPN - 11/19/2018 1:12 PM EDT Per [facility] the loading dose cannot be approved for the increased qty since it exceeds the qty approved by the FDA. The next step is a peer to peer. # [phone] * Telephone Encounter - Caitlyn Eugene OSA [...] Care Team Description 11/28/2018 Pharmacy Pharmacy Medication, [facility] Specialty Refill, [address] [address] [phone] 01/21/2019 Pharmacy Pharmacy Medication, [facility] Specialty, [address] [address] [phone] 04/06/2019 Office Visit Rheumatology Nadeen Steiner MD [address] [place] [address] Health Maintenance Due Date Last Done [...] on File Type Date Recorded Patient Senior Grant Writer Expl 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
--- OUTSIDE RECORDS SUMMARY | 2023-02-05 23:42 | External Medical Summary | Summary of Care ---
Author Name [place] [address] Care Team Providers Care Analytics Director Name Role Phone Nimo Stewart MD Primary Care Provider [phone] Reason for Visit * Reason Comments Pre Cert/Prior Auth Saturnino Medication Refill Encounter Details Date Type Department Care Team Description 11/17/2018 [address]phone [address] [address] Nadeen Steiner MD 21 [place] [address] Pre Cert/Prior Auth ( Saturnino ); Medication ... Allergies Active Allergy Reactions Severity Noted Date Comments Codeine 09/20/2014 documented as of this encounter (statuses as of 11/20/2018) Medications Medication Sig Dispensed Refills Start Date [...] 3 07/23/2018 Active predniSONE (DELTASONE) 10 MG TabletIndications:P soriatic arthritis (HCC) Take 1 Tab by mouth daily. 90 Tab 4 11/17/2018 Active Ixekizumab (TALTZ) 80 MG/ML SOAJIndications:PSA (psoriatic arthritis) ([facility]) 160 mg subQ (given as two 80 mg injections) at week 0, followed by 80 mg subQ at weeks 2, 4, 6, 8, 10, and 12, then 80 mg subQ every 4 weeks 8 Syringe 0 11/19/2018 Active Ixekizumab (TALTZ) 80 MG/ML SOAJIndications:PSA (psoriatic arthritis) ([facility]) Inject 80 mg under the skin Every Month. 5 Syringe 5 11/19/2018 Active documented as of this encounter (statuses as of 11/20/2018) Active Problems Problem Noted Date Body mass [...] as of this encounter (statuses as of 11/20/2018) Social History Tobacco Use Types Packs/Day Years Used Date Never Smoker Smokeless Tobacco: Never Used Alcohol Use Drinks/Week oz/Week Comments Yes 1-2 drinks/bam h Sex Assigned at Date Recorded Not on file Job Start Date Occupation Industry Not on file Not on file Not on file Travel History Travel Start Travel End documented as of this encounter Miscellaneous Notes * Telephone Encounter - Tea Saldaña CPhT - 11/20/2018 1:41 PM EDT Jose from [facility] called to request additional information for the Taltz prior auth They need to know the reason why so many injectors are being ordered please advise [phone] Thanks, Tea Saldaña Drywall Finisher Pharmacy Refill Call Center 11/20/2018,1:43 PM * [...] - 11/19/2018 1:37 PM EDT Kirill from [facility] called to request additional information for the Taltz prior auth this is time sensitive and must be received by FRI AM please call [phone] Tea Katz Drywall Finisher Pharmacy Refill Call Center 11/19/2018,1:38 PM * Telephone Encounter - Cuca Segura LPN - 11/19/2018 1:12 PM EDT Per [facility] the loading dose cannot be approved for the increased qty since it exceeds the qty approved by the FDA. The next step is a peer to peer. # [phone] * Telephone Encounter - Caitlyn Eugene OSA [...] Segura LPN - 11/17/2018 3:04 PM EDT shira Mendez * Telephone Encounter - Nadeen Steiner MD [...] 11/28/2018 Pharmacy Pharmacy Medication, [facility] Special[facility] Refill, [address] [address] [phone] 01/21/2019 Pharmacy Pharmacy Medication, [facility] Special[facility], [address] [address] 04/06/2019 Office Visit Rheumatology Nadeen Steiner MD [address] [place] [address] Health Maintenance Due Date Last [...] Documents on File Type Date Recorded Patient It Analyst Expl 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
--- OUTSIDE RECORDS SUMMARY | 2023-02-05 23:42 | External Medical Summary | Summary of Care ---
Author Name [place] [address] Care Team Providers Care Die Sinker Apprentice Name Role Phone Nimo Stewart MD Primary Care Provider [phone] Reason for Visit * Reason Comments Pre Cert/Prior Auth Saturnino Medication Refill Encounter Details Date Type Department Care Team Description 11/17/2018 [address] [address] Nadeen Steienr MD 21 [place] [address] Pre Cert/Prior Auth ( Saturnino [...] MG/ML SOAJIndications: PSA (psoriatic arthritis) ([facility]) Inject 80 mg under the skin Every Month. 5 Syringe 5 11/19/2018 Active Ixekizumab (TALTZ) 80 MG/ML SOAJIndications: PSA (psoriatic arthritis) (HCC) 160 mg subcutaneous at week 0 followed by 80 mg subcutaneous every 4 week 2 Syringe 0 11/20/2018 Active Ixekizumab (TALTZ) 80 MG/ML SOAJIndications: PSA (psoriatic arthritis) ([facility]) 160 mg subQ (given as two [...] - 11/20/2018 1:41 PM EDT Jose from [facility] called to request additional information for the Taltz prior auth They need to know the reason why so many injectors are being ordered please advise [phone] Thanks, Tea Saldaña Boil Off Machine Operator Cloth Pharmacy Refill Call Center 11/20/2018,1:43 PM * [...] - 11/19/2018 1:37 PM EDT Kirill from [facility] called to request additional information for the Taltz prior auth this is time sensitive and must be received by FRI AM please call [phone] Tea Katz Boil Off Machine Operator Cloth Pharmacy Refill Call Center 11/19/2018,1:38 PM * Telephone Encounter - Cuca Segura LPN - 11/19/2018 1:12 PM EDT Per [facility] the loading dose cannot be approved for the increased qty since it exceeds the qty approved by the FDA. The next step is a peer to peer. # [phone] * Telephone Encounter - Caitlyn Eugene OSA [...] Care Team Description 11/28/2018 Pharmacy Pharmacy Medication, [facility] Specialty Refill, [address] [id number] 01/21/2019 Pharmacy Pharmacy Medication, [facility] Specialty, [address] [address] [phone] 04/06/2019 Office Visit Rheumatology Nadeen Steiner MD [...] Documents on File Type Date Recorded Patient Ripsaw Matcher Expl 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
--- OUTSIDE RECORDS SUMMARY | 2023-02-05 23:42 | External Medical Summary | Summary of Care ---
Author Name Unknown Organization [facility] [place] [address] Care Team Providers Care Bean Picker Machine Operator Name Role Phone Nimo Stewart MD Primary Care Provider [phone] Reason for Visit * Reason Comments Medication Refill Encounter Details Date Type Department Care Team Description 11/05/2018 Telephone Sekou Hemphill 21 [facility] [place] [address] Ndaeen Steiner MD 21 [facility] [place] [address] Medication Refill Allergies Active Allergy Reactions Severity Noted Date Comments Codeine 09/20/2014 documented as of this encounter (statuses as of 11/05/2018) Medications Medication Sig Dispensed Refills Start Date End Date Status Aspirin 81 MG Tablet 1 daily 0 Acti ve Cholecalciferol (VITAMIN D) 1000 UNIT Capsule 1 [...] % cream As directed 0 04/02/2017 Active PredniSONE (DELTASONE) 10 MG TabletIndications:Ps oriatic arthritis (HCC) half tab daily 100 Tab 3 10/10/2017 Active atorvaSTATin (LIPITOR) 10 MG Tablet 1 daily 0 10/04/2017 Active furosemide (LASIX) 40 MG Tablet 1 tab daily 0 04/01/2018 Active gabapentin (NEURONTIN) 100 MG Capsule 1 tab daily 0 03/04/2018 Active potassium chloride ER 10 MEQ CPCR 1 tab daily 0 04/10/2018 Active Secukinumab (COSENTYX SENSOREADY 300 DOSE) 150 MG/ML SOAJIndications:PSA (psoriatic arthritis) ([facility]) Inject 2 mL under the skin every 4 weeks. 2 mL 5 04/16/2018 Active traMADol (ULTRAM) 50 MG TabletIndications:Ps oriatic arthritis ([facility]),Acute pain of both shoulders Take 2 Tabs by mouth every 6 hours as needed for Pain. 240 Tab 3 05/05/2018 Active glimepiride (AMARYL) 2 MG Tablet 2 mg. 1 tab twice daily 0 05/29/2018 Active omeprazole (PRILOSEC) 20 MG CPDR TAKE 1 CAPSULE BY MOUTH DAILY 90 Cap 3 07/23/2018 Active documented as of this encounter (statuses as of 11/05/2018) Active Problems Problem Noted Date Body mass [...] as of this encounter (statuses as of 11/05/2018) Social History Tobacco Use Types Packs/Day Years Used Date Never Smoker Smokeless Tobacco: Never Used Alcohol Use Drinks/Week oz/Week Comments Yes 1-2 drinks/bam h Sex Assigned at Date Recorded Not on file Job Start Date Occupation Industry Not on file Not on file Not on file Travel History Travel Start Travel End documented as of this encounter Miscellaneous Notes * Telephone Encounter - Marta Guevara PHARM Tech - 11/05/2018 9:15 AM EDT Patient needs a medication refill for their Cosentyx sensoready , please fill if appropriate. [employer] ship date is 11/06/2018 Thank you very much, Marta Guevara Moderate Needs [facility] 11/05/2018'9:17 AM documented in this encounter Plan of Treatment Upcoming Encounters Date Type Specialty Care Team Description 11/17/2018 Office Visit Rheumatology Nadeen Steiner MD 21 [facility] [place] [address] 11/28/2018 Pharmacy Pharmacy Medication, [facility] Specialty Refill, [address] [address] [phone] 01/21/2019 Pharmacy Pharmacy Medication, [facility], [address] [address] [phone] Health Maintenance Due Date Last Done Comments [...] Documents on File Type Date Recorded Patient Continuous Crusher Operator Expl 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
--- OUTSIDE RECORDS SUMMARY | 2023-02-05 23:42 | External Medical Summary | Summary of Care ---
Author Name Unknown Organization [place] [address] Care Team Providers Care Bookkeeper Name Role Phone Nimo Stewart MD Primary Care Provider [phone] Reason for Visit * Reason Comments Medication Refill Encounter Details Date Type Department Care Team Description 10/15/2018 Pharmacy [facility] [address] [facility] [place], [place] [id number] Medication, [facility] Refill, [facility] [address] [facility] [address] [place] [address] Encounter for medication refill* Allergies Active Allergy Reactions Severity Noted Date Comments Codeine 09/20/2014 documented as of this encounter (statuses as of 10/15/2018) Medications Medication Sig Dispensed Refills Start Date [...] 300 DOSE) 150 MG/ML SOAJIndications:PSA (psoriatic arthritis) ([facility]) Inject 2 mL under the skin every 4 weeks. 2 mL 5 04/16/2018 Active traMADol (ULTRAM) 50 MG TabletIndications:Ps oriatic arthritis ([facility]),Acute pain of both shoulders Take 2 Tabs by mouth every 6 hours as needed for Pain. 240 Tab 3 05/05/2018 Active glimepiride (AMARYL) 2 MG Tablet 2 mg. 1 tab twice daily 0 05/29/2018 Active omeprazole (PRILOSEC) 20 MG CPDR TAKE 1 CAPSULE BY MOUTH DAILY 90 Cap 3 07/23/2018 Active documented as of this encounter (statuses as of 10/15/2018) Active Problems Problem Noted Date Body mass [...] as of this encounter (statuses as of 10/15/2018) Social History Tobacco Use Types Packs/Day Years Used Date Never Smoker Smokeless Tobacco: Never Used Alcohol Use Drinks/Week oz/Week Comments Yes 1-2 drinks/bam h Sex Assigned at Date Recorded Not on file Job Start Date Occupation Industry Not on file Not on file Not on file Travel History Travel Start Travel End documented as of this encounter Progress Notes * Marta Guevara PHARM Tech - 10/15/2018 3:39 PM EDT Patient not ready for refill at this time. Will call when needed. Marta Guevara Squirt Machine Operator [facility] 10/15/2018'3:40 PM documented in this encounter Plan of Treatment Upcoming Encounters Date Type Specialty Care Team Description 11/17/2018 Office Visit Rheumatology Nadeen Steiner MD [address] [facility] [place] [address] [phone] Nurse Viki Sanon Rheumatology [place] [address] [facility] [place] [address] [phone] 01/21/2019 Pharmacy Pharmacy Medication, [facility], [address] [address] [phone] Health Maintenance Due Date Last Done Comments [...] prescriptions documented in this encounter Advance Directives Patient has advance care planning documents on file. For more information, please contact: [place] [address]
--- OUTSIDE RECORDS SUMMARY | 2023-02-05 23:42 | External Medical Summary | Summary of Care ---
Author [place] [address] Care Team Providers Care Clipper Counters Name Role Phone Nimo Stewart MD Primary Care Provider [phone] Reason for Visit * Reason Comments Advice Encounter Details Date Type Department Care Team Description 11/18/2018 Telephone [address] [place] [address] Nadeen Steiner MD 21 [place] [address] Advice Allergies Active Allergy Reactions Severity Noted Date Comments Codeine 09/20/2014 documented as of this encounter (statuses as of 11/19/2018) Medications Medication Sig Dispensed Refills Start Date [...] 3 07/23/2018 Active predniSONE (DELTASONE) 10 MG TabletIndications:Ps oriatic arthritis (HCC) Take 1 Tab by mouth daily. 90 Tab 4 11/17/2018 Active documented as of this encounter (statuses as of 11/19/2018) Active Problems Problem Noted Date Body mass [...] as of this encounter (statuses as of 11/19/2018) Social History Tobacco Use Types Packs/Day Years Used Date Never Smoker Smokeless Tobacco: Never Used Alcohol Use Drinks/Week oz/Week Comments Yes 1-2 drinks/bam h Sex Assigned at Date Recorded Not on file Job Start Date Occupation Industry Not on file Not on file Not on file Travel History Travel Start Travel End documented as of this encounter Miscellaneous Notes * Telephone Encounter - eJssie Allison OSA - 11/19/2018 10:51 AM EDT They were already mailed yesterday * Telephone Encounter - Linda Teran OSA - 11/18/2018 10:22 AM EDT Patient's is requesting that the lab orders and discharge papers from yesterday's visit be mailed to them. There wasn't anyone at the desk when they left yesterday. documented in this encounter Plan of Treatment Upcoming Encounters Date Type Specialty Care Team Description 11/28/2018 Pharmacy Pharmacy Medication, [facility] Refill, [address] [address] [phone] 01/21/2019 Pharmacy Pharmacy Medication, [facility], [address] [address] [phone] 04/06/2019 Office Visit Rheumatology Nadeen Steiner MD 21 [place] [address] Health Maintenance Due Date Last [...] Documents on File Type Date Recorded Patient Coding Educator Expl 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
--- OUTSIDE RECORDS SUMMARY | 2023-02-05 23:42 | External Medical Summary | Summary of Care ---
Author Name Unknown Organization [place] [address] Care Team Providers Care Safe Expert Name Role Phone Nimo Stewart MD Primary Care Provider [phone] [phone] Reason for Visit * Reason Comments Medication Refill Encounter Details Date Type Department Care Team Description 10/15/2018 Pharmacy [facility] [address] [facility], 4th Floor [place], [place] [id number] Medication, [facility] Specialty Refill, [facility] [address] [facility] [address] [place] [address] Encounter for medication refill* Allergies [...] 300 DOSE) 150 MG/ML SOAJIndications:PSA (psoriatic arthritis) ([facility]) Inject 2 mL under the skin every 4 weeks. 2 mL 5 04/16/2018 Active traMADol (ULTRAM) 50 MG TabletIndications:Ps oriatic arthritis ([facility]),Acute pain of both shoulders Take [...] Notes * Marta Guevara PHARM Tech - 11/05/2018 9:19 AM EDT [facility] REFILL CALL NOTE Sarwat Campbell [address]139 Patient is a 73 year old male on the schedule today for a telephone call concerning their refill ofcosentyx. Spoke to patient-lvm Does patient have any questions regarding medication(s)? [...] left on present supply? yes Shipment date: 11/06/2018-pend refill Delivery method:UPS Location Medication Delivered too? Home Discussed copay of prescription?:yes; patient verbalized understanding Discussed outstanding balance?:yes; patient verbalized understanding Discussed payment options?:yes; patient verbalized understanding Medication shipped to:[address] [place] [address] Satisfaction survey: na Patient reminded that they will be receiving a telephone call from pharmacy to schedule their next refill when they have approximately 1 week of medication remaining. In the interim, patient advised to call pharmacy should they have any questions or concerns. ALEXANDRIA Franks 11/05/2018, 9:19 AM * Marta Guevara PHARM Tech - 10/15/2018 3:39 PM EDT Patient not ready for refill at this time. Will call when needed. Marta Guevara Chain Sales Consultant [facility] 10/15/2018'3:40 PM documented in this encounter Plan of Treatment Upcoming Encounters Date Type Specialty Care Team Description 11/17/2018 Office Visit Rheumatology Nadeen Steiner MD [address] [place] [address] [phone] 11/28/2018 Pharmacy Pharmacy Medication, [facility] Specialty Refill, [address] [place] [address] [phone] 01/21/2019 Pharmacy Pharmacy Medication, [facility], [address] [place] [address] Health Maintenance Due [...] Documents on File Type Date Recorded 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
--- OUTSIDE RECORDS SUMMARY | 2023-02-05 23:42 | External Medical Summary | Summary of Care ---
Author [place] [address] Care Team Providers Care Wine Specialist Name Role Phone Nimo Stewart MD Primary Care Provider [phone] [phone] Reason for Visit * Reason Comments Pre Cert/Prior Auth Saturnino Medication Refill Encounter Details Date Type Department Care Team Description 11/17/2018 [address] [address] Nadeen Steiner MD 21 [place] [address] Pre Cert/Prior Auth ( Saturnino [...] (TALTZ) 80 MG/ML SOAJIndications: PSA (psoriatic arthritis) ([facility]) Inject 80 mg under the skin Every Month. 5 Syringe 5 11/19/2018 Active Ixekizumab (TALTZ) 80 MG/ML SOAJIndications: PSA (psoriatic arthritis) (HCC) 160 mg subcutaneous at week 0 followed by 80 mg subcutaneous every 4 week 2 Syringe 0 11/20/2018 Active Ixekizumab (TALTZ) 80 MG/ML SOAJIndications: PSA (psoriatic arthritis) ([facility]) 160 mg subQ (given as [...] - 11/21/2018 10:11 AM EDT Kirill from [facility] called to request additional information for prior auth transferred call to scheduling who will get him to Rheumatology front edger Tea Katz Contract Preparer Pharmacy Refill Call Center 11/21/2018,10:12 AM * [...] - 11/20/2018 1:41 PM EDT Jose from [facility] called to request additional information for the Taltz prior auth They need to know the reason why so many injectors are being ordered please advise [phone] Thanks, Tea Saldaña Contract Preparer Pharmacy Refill Call Center 11/20/2018,1:43 PM * [...] - 11/19/2018 1:37 PM EDT Kirill from [facility] called to request additional information for the Taltz prior auth this is time sensitive and must be received by FRI AM please call [phone] Tea Katz Contract Preparer Pharmacy Refill Call Center 11/19/2018,1:38 PM * Telephone Encounter - Cuca Segura LPN - 11/19/2018 1:12 PM EDT Per [facility] the loading dose cannot be approved for the increased qty since it exceeds the qty approved by the FDA. The next step is a peer to peer. # [phone] * Telephone Encounter - Caitlyn Eugene OSA [...] 11/28/2018 Pharmacy Pharmacy Medication, [facility] Refill, [facility] [address] [address] [phone] 01/21/2019 Pharmacy Pharmacy Medication, [facility], [address] [address] [phone] 04/06/2019 Office Visit Rheumatology Nadeen Steiner MD [address] [place] [address] Health Maintenance Due Date Last [...] Documents on File Type Date Recorded Patient Certified Retinal Angiographer Expl 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
--- OUTSIDE RECORDS SUMMARY | 2023-02-05 23:42 | External Medical Summary | Summary of Care ---
Author [place] [address] Care Team Providers Care Print Shop Stenographer Name Role Phone Nimo Stewart MD Primary Care Provider [phone] Reason for Visit * Reason Comments Pre Cert/Prior Auth Saturnino Medication Refill Encounter Details Date Type Department Care Team Description 11/17/2018 [address] [address] Nadeen Steiner MD 21 [place] [address] Pre Cert/Prior Auth ( Saturnino [...] 80 MG/ML SOAJIndications:PSA (psoriatic arthritis) ([facility]) 160 mg subQ (given as two 80 mg injections) at week 0, followed by 80 mg subQ at weeks 2, 4, 6, 8, 10, and 12, then 80 mg subQ every 4 weeks 8 Syringe 0 11/19/2018 Active Ixekizumab (TALTZ) 80 MG/ML SOAJIndications:PSA (psoriatic arthritis) ([facility]) Inject 80 mg under the [...] - 11/20/2018 1:41 PM EDT Jose from [facility] called to request additional information for the Taltz prior auth They need to know the reason why so many injectors are being ordered please advise [phone] Thanks, Tea Saldaña Sap Portal Developer Pharmacy Refill Call Center 11/20/2018,1:43 PM * [...] - 11/19/2018 1:37 PM EDT Kirill from [facility] called to request additional information for the Taltz prior auth this is time sensitive and must be received by FRI AM please call [phone] Tea Katz Sap Portal Developer Pharmacy Refill Call Center 11/19/2018,1:38 PM * Telephone Encounter - Cuca Segura LPN - 11/19/2018 1:12 PM EDT Per [facility] the loading dose cannot be approved for the increased qty since it exceeds the qty approved by the FDA. The next step is a peer to peer. 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
--- OUTSIDE RECORDS SUMMARY | 2023-02-05 23:42 | External Medical Summary | Summary of Care ---
Author Name Unknown [place] [address] Care Team Providers Care Mechatronics Engineer Name Role Phone Nimo Stewart MD Primary Care Provider [phone] Reason for Visit * Reason Comments Medication Refill Encounter Details Date Type Department Care Team Description 11/05/2018 Refill Rheumatology, [facility] [place] [address] Nadeen Steiner MD 21 [facility] [place] [address] PSA (psoriatic arthritis) ([facility]) Allergies Active Allergy Reactions Severity Noted Date [...] 0 04/02/2017 Active PredniSONE (DELTASONE) 10 MG TabletIndications :Psoriatic arthritis (HCC) half tab daily 100 Tab [...] MOUTH DAILY 90 Cap 3 07/23/2018 Active Secukinumab (COSENTYX SENSOREADY 300 DOSE) 150 MG/ML SOAJIndications:P SA (psoriatic arthritis) (HCC) Inject 2 mL under the skin every 4 weeks. 2 mL 5 11/05/2018 Active Secukinumab (COSENTYX SENSOREADY 300 DOSE) 150 MG/ML SOAJIndications:P SA (psoriatic arthritis) (HCC) Inject 2 mL under the skin every 4 weeks. 2 mL 5 04/16/2018 11/05/2018 Discontinued documented as of this encounter (statuses [...] as of this encounter Miscellaneous Notes * Addendum Note - Nadeen Steiner MD - 11/05/2018 9:37 AM EDT Addended by: NADEEN STEINER on: 11/05/2018 09:37 AM Modules accepted: Orders * Telephone Encounter - Nadeen Steiner MD - 11/05/2018 9:36 AM EDT Done * Telephone Encounter - Marta Guevara PHARM Tech - 11/05/2018 9:15 AM EDT Patient needs a medication refill for their Cosentyx sensoready , please fill if appropriate. [employer] ship date is 11/06/2018 Thank you very much, Marta Guevara [facility] 11/05/2018'9:17 AM documented in this encounter Plan of Treatment Upcoming Encounters Date Type Specialty Care Team Description 11/17/2018 [facility] Visit [facility] [id number] 11/28/2018 Pharmacy Pharmacy Medication, [facility] Refill, [facility] [address] [address] [phone] 01/21/2019 Pharmacy Pharmacy Medication, [facility] Special[facility], [facility] [address] [address] [phone] Health Maintenance Due Date Last Done Comments [...] Documents on File Type Date Recorded Patient Teacher Private Expl 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
--- OUTSIDE RECORDS SUMMARY | 2023-02-05 23:42 | External Medical Summary | Summary of Care ---
Author [place] [address] Care Team Providers Care Sales Representative Sales Manager Name Role Phone Nimo Stewart MD Primary Care Provider [phone] Reason for Visit * Reason Comments eRx-Medication Refill Encounter Details Date Type Department Care Team Description 11/04/2018 [address] [address] [facility] [address] Psoriatic arthritis (HCC) Allergies Active Allergy Reactions Severity Noted Date Comments Codeine 09/20/2014 documented as of this encounter (statuses as of 11/06/2018) Medications Medication Sig Dispensed Refills Start Date [...] 3 07/23/2018 Active predniSONE (DELTASONE) 10 MG TabletIndications :Psoriatic arthritis (HCC) TAKE 1/2 TABLET BY MOUTH DAILY 45 Tab 11 11/06/2018 Active PredniSONE (DELTASONE) 10 MG TabletIndications :Psoriatic arthritis (HCC) half tab daily 100 Tab 3 10/10/2017 11/04/2018 Discontinued documented as of this encounter (statuses as of 11/06/2018) Active Problems Problem Noted Date Body mass [...] as of this encounter (statuses as of 11/06/2018) Social History Tobacco Use Types Packs/Day Years [...] Telephone Encounter - Nadeen Steiner MD - 11/06/2018 3:53 PM EDT Signed Prescriptions: Disp Refills predniSONE (DELTASONE) 10 MG Tablet 45 Tab 11 Sig: TAKE 1/2 TABLET BY MOUTH DAILY Authorizing Provider: NADEEN STEINER * Telephone Encounter - Isa Perrin sales development executive - 11/06/2018 10:14 AM EDT Pt calling to check on status of prescription. Pt can be reached at the following number(s): Patient Phone Numbers Thank you, Isa Perrin Camelid Fiber Sorter Refill Call Center 11/06/2018, 10:14 AM * Telephone Encounter - Van Smith LPN - 11/06/2018 10:08 AM EDT Pending Prescriptions: Disp Refills predniSONE (DELTASONE) 10 MG Tablet [Phar*45 Tab 11 Sig: TAKE 1/2 TABLET BY MOUTH DAILY * Telephone Encounter - Nicole Bravo LPN - 11/06/2018 10:03 AM EDT Pending Prescriptions: Disp Refills predniSONE (DELTASONE) 10 MG Tablet [Phar*45 Tab 11 Sig: TAKE 1/2 TABLET BY MOUTH DAILY * Telephone Encounter - Nicole Bravo LPN - 11/06/2018 10:02 AM EDT Pending Prescriptions: Disp Refills predniSONE (DELTASONE) 10 MG Tablet [Phar*45 Tab 0 Sig: TAKE 1/2 TABLET BY MOUTH DAILY Last Office Visit: 12/30/2017 Next Office Visit: 11/17/2018 Scheduled Provider(s): Nadeen Steiner MD Last date the medication was ordered: 10/10/17 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 Hyperlipidemia E78.5 GERD (gastroesophageal reflux disease) K21.9 Hypertension I10 Psoriatic arthritis ([facility]) L40.50 Diabetes mellitus ([facility]) E11.9 Diabetic neuropathy ([facility]) E11.40 High risk medication use Z79.899 CKD (chronic kidney disease) stage 2, GFR 60-89 ml/min N18.2 Generalized osteoarthritis M15.9 Body mass index (BMI) of 45.0 to 49.9 in adult ([facility]) Z68.42 Labs: CREATININE-OUTSIDE LAB(MG/DL) Raymon Dt/Tm Resulted Value Status 11/20/16 11/22/16 1.00 FINAL POTASSIUM-OUTSIDE LAB(MMOL/L) Raymon Dt/Tm Resulted Value Status 11/20/16 11/22/16 4.2 FINAL No TSH components found No LDL components found ALT-OUTSIDE LAB(U/L) Raymon Dt/Tm Resulted Value Status 11/20/16 11/22/16 83* FINAL Hemoglobin AIC Results: No HEMOGLOBIN, A1C components found documented in this encounter Plan of Treatment Upcoming Encounters Date Type Specialty Care Team Description 11/17/2018 Office Visit Rheumatology Nadeen Steiner MD 21 [place] [address] 11/28/2018 Pharmacy Pharmacy Medication, [facility] Refill, [address] [address] [phone] 01/21/2019 Pharmacy Pharmacy Medication, [facility], [address] [address] [phone] Health Maintenance Due Date Last Done Comments Yearly B-12 1943 DIABETES-EYE EXAM 1961 DIABETES-FOOT EXAM 1961 DIABETES-HGBA1C EVERY 6 MONTHS 1961 DTaP,Tdap,and Td Vaccines (1 - Tdap) 1962 PNEUMOCOCCAL ADULT 65 YRS AN D OVER (1 of 2 - PCV13) 2008 COLONOSCOPY-EVERY 5 YRS AGES 18-100 01/04/2014 01/04/2009 *DEPRESSION SCREENINGCARRIE FOR PTS 18 AND OVER 09/23/2014 *URINE [...] Documents on File Type Date Recorded Patient Systems Software Manager Expl 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
--- OUTSIDE RECORDS SUMMARY | 2023-02-05 23:42 | External Medical Summary | Summary of Care ---
Author Name Unknown Organization [place] [address] Care Team Providers Care Associate Account Manager Name Role Phone Nimo Stewart MD Primary Care Provider [phone] Encounter Details Date Type Department Care Team Description 10/08/2018 Result Scan Rheumatology [place] [id number] [place] [address] Rajendra Crowley MD [address] [place] [address] <No scans attached> Allergies Active Allergy Reactions Severity Noted Date Comments Codeine 09/20/2014 documented as of this encounter (statuses as of 10/22/2018) Medications Medication Sig Dispensed Refills Start Date [...] 150 MG/ML SOAJIndications:PSA (psoriatic arthritis) ([facility]) Inject 2 mL under the skin every 4 weeks. 2 mL 5 04/16/2018 Active traMADol (ULTRAM) 50 MG TabletIndications:Ps oriatic arthritis ([facility]),Acute pain of both shoulders Take 2 Tabs by mouth every 6 hours as needed for Pain. 240 Tab 3 05/05/2018 Active glimepiride (AMARYL) 2 MG Tablet 2 mg. 1 tab twice daily 0 05/29/2018 Active omeprazole (PRILOSEC) 20 MG CPDR TAKE 1 CAPSULE BY MOUTH DAILY 90 Cap 3 07/23/2018 Active documented as of this encounter (statuses as of 10/22/2018) Active Problems Problem Noted Date Body mass [...] as of this encounter (statuses as of 10/22/2018) Social History Tobacco Use Types Packs/Day Years [...] Nadeen Steiner MD [address] [place] [address] Nurse Viki Sanon Rheumatology [facility] [address] [phone] 01/21/2019 Pharmacy Pharmacy Medication, [facility], [address] [place] [address] Health Maintenance Due [...] Date/Time Associated Diagnosis Comments OUTSIDE LAB RESULTS 10/08/2018 documented in this encounter Results * OUTSIDE LAB RESULTS (10/08/2018) Narrative Performed At documented in this encounter Advance Directives Patient has advance care planning documents on file. For more information, please contact: [place] [address]
--- OUTSIDE RECORDS SUMMARY | 2023-02-05 23:42 | External Medical Summary | Summary of Care ---
Author Name [place] [address] Care Team Providers Care Prescription Eyeglass Maker Name Role Phone Nimo Stewart MD Primary Care Provider [phone] [phone] Reason for Visit * Reason Comments Advice Encounter Details Date Type Department Care Team Description 11/19/2018 Telephone RheumatologyCharlettewn 21 [facility] [place] [address] Nadeen Steiner MD 21 [facility] [place] [address] Advice Allergies Active Allergy Reactions Severity [...] Encounter - Cuca Segura LPN - 11/19/2018 10:41 AM EDT See other message from 11/17 * Telephone Encounter - Chelo Reyes OSA - 11/19/2018 9:48 AM EDT Pt was refused medication from insurance company because of the quantity prescribed. 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
--- OUTSIDE RECORDS SUMMARY | 2023-02-05 23:42 | External Medical Summary | Summary of Care ---
Author [place] [address] Care Team Providers Care Milk Pickup Driver Name Role Phone Nimo Stewart MD Primary Care Provider [phone] [phone] Reason for Visit * Reason Comments Pre Cert/Prior Auth Saturnino Medication Refill Encounter Details Date Type Department Care Team Description 11/17/2018 Tele[address] [address] Nadeen Steiner MD 21 [place] [address] Pre Cert/Prior Auth ( Saturnino [...] (TALTZ) 80 MG/ML SOAJIndications:PSA (psoriatic arthritis) ([facility]) 160 mg subQ (given as two 80 mg injections) at week 0, followed by 80 mg subQ at weeks 2, 4, 6, 8, 10, and 12, then 80 mg subQ every 4 weeks 8 Syringe 0 11/19/2018 Active Ixekizumab (TALTZ) 80 MG/ML SOAJIndications:PSA (psoriatic arthritis) ([facility]) Inject 80 mg under the skin Every [...] - 11/20/2018 1:41 PM EDT Jose from [facility] called to request additional information for the Taltz prior auth They need to know the reason why so many injectors are being ordered please advise [phone] Thanks, Tea Saldaña Passenger Car Inspector Pharmacy Refill Call Center 11/20/2018,1:43 PM * [...] - 11/19/2018 1:37 PM EDT Kirill from [facility] called to request additional information for the Taltz prior auth this is time sensitive and must be received by FRI AM please call [phone] Tea Katz Passenger Car Inspector Pharmacy Refill Call Center 11/19/2018,1:38 PM * Telephone Encounter - Cuca Segura LPN - 11/19/2018 1:12 PM EDT Per [facility] the loading dose cannot be approved for the increased qty since it exceeds the qty approved by the FDA. The next step is a peer to peer. 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
--- OUTSIDE RECORDS SUMMARY | 2023-02-05 23:42 | External Medical Summary | Summary of Care ---
Author [place] [address] Care Team Providers Care Dredge Boat Engineer Name Role Phone Nimo Stewart MD Primary Care Provider [phone] Reason for Visit * Reason Comments Pre Cert/Prior Auth Saturnino Medication Refill Encounter Details Date Type Department Care Team Description 11/17/2018 Telephone [address] [address] Nadeen Steiner MD 21 [place] [address] Pre Cert/Prior Auth ( Saturnino [...] 80 MG/ML SOAJIndications: PSA (psoriatic arthritis) ([facility]) Inject 80 mg under the skin Every Month. 5 Syringe 5 11/19/2018 Active Ixekizumab (TALTZ) 80 MG/ML SOAJIndications: PSA (psoriatic arthritis) (HCC) 160 mg subcutaneous at week 0 followed by 80 mg subcutaneous every 4 week 2 Syringe 0 11/20/2018 Active Ixekizumab (TALTZ) 80 MG/ML SOAJIndications: PSA (psoriatic arthritis) ([facility]) 160 mg subQ (given as two 80 [...] - 11/20/2018 1:41 PM EDT Jose from [facility] called to request additional information for the Taltz prior auth They need to know the reason why so many injectors are being ordered please advise [phone] Thanks, Tea [facility] 11/20/2018,1:43 PM * [...] - 11/19/2018 1:37 PM EDT Kirill from [facility] called to request additional information for the Taltz prior auth this is time sensitive and must be received by FRI AM please call [phone] Tea Katz [facility] Call [facility] 11/19/2018,1:38 PM * Telephone Encounter - Cuca Segura LPN - 11/19/2018 1:12 PM EDT Per [facility] the loading dose cannot be approved for the increased qty since it exceeds the qty approved by the FDA. The next step is a peer to peer. # [phone] * Telephone Encounter - Caitlyn Eugene OSA [...] skin Every Month. 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
--- OUTSIDE RECORDS SUMMARY | 2023-02-05 23:42 | External Medical Summary | Summary of Care ---
Author [place] [address] Care Team Providers Care Bedspread Seamer Name Role Phone Nimo Stewart MD Primary Care Provider [phone] Reason for Visit * Reason Comments Rheum Follow Up 5 month return Encounter Details Date Type Department Care Team Description 11/17/2018 Office Visit Rheumatology [address] [place] [address] Nadeen Steiner MD 21 [facility] [place] [address] Psoriatic arthritis (HCC)*; Generalized osteoarthritis; Encounter for long-term (current) use of high-risk medication Allergies Active Allergy Reactions Severity Noted Date Comments Codeine 09/20/2014 documented as of this encounter (statuses as of 11/17/2018) Medications Medication Sig Dispensed Refills Start Date [...] (DELTASONE) 10 MG TabletIndications :Psoriatic arthritis (HCC) Take 1 Tab by mouth daily. 90 Tab 4 11/17/2018 Active predniSONE (DELTASONE) 10 MG TabletIndications :Psoriatic arthritis (HCC) TAKE 1/2 TABLET BY MOUTH DAILY 45 Tab 11 11/06/2018 11/17/2018 Discontinued Secukinumab (COSENTYX SENSOREADY 300 DOSE) 150 MG/ML SOAJIndications:P SA (psoriatic arthritis) (HCC) Inject 2 mL under the skin every 4 weeks. 2 mL 5 11/05/2018 11/17/2018 Discontinued documented as of this encounter (statuses as of 11/17/2018) Active Problems Problem Noted Date Body mass [...] as of this encounter (statuses as of 11/17/2018) Social History Tobacco Use Types Packs/Day Years [...] Sign Reading Time Taken Comments Blood Pressure 144/76 11/17/2018 11:40 AM EDT Pulse - - Temperature 36.8 C (98.3 F) 11/17/2018 11:40 AM E DT Respiratory Rate - - Oxygen Saturation - - Inhaled Oxygen Concentration - - Weight 134.7 kg (297 lb) 11/17/2018 11:40 AM EDT Height - - Body Mass Index 47.94 05/21/2016 9:15 AM EST documented in this encounter Progress Notes * Nadeen Steiner MD - 11/17/2018 11:54 AM EDT Reason for visit: Follow-up for ongoing evaluation and treatment of psoriatic arthritis. Last Office Visit: 12/30/2017. Diagnosis date: Past treatments: steroids, methotrexate, Enbrel, Remicade (1999-August 2016) discontinued due topersistent transaminitis and diagnosis of MGUS, Otezla-loss of efficacy Current regimen: Cosentyx (12/25- now), prednisone 5 mg, MICHELLE 5 mg History of present illness: Since the time of his last evaluation, he notes the following: He is back on Michelle 5 mg daily in addition to taking half a tablet of his 10 mg prednisone every day. He hasbeen having significant pain and swelling of his hands right worse than left. His shoulders have not been bothersome. He has several spots of active psoriasis on his elbows and left forearm. He contin ues on Cosenytx 300 mg every month and his last dose was 11/09/18. Most recent labs from 10/08/2018 showed no evidence of medication toxicity. He [...] (BMI) of 45.0 to 49.9 in adult (HCC) Z68.42 Past medical history: Reviewed and unchanged. [...] Current Outpatient Medications Medication Sig Dispense Refill predniSONE (DELTASONE) 10 MG Tablet Take 1 [...] (AMOXIL) 500 MG Capsule For dental procedures Aspirin 81 MG Tablet 1 daily Cholecalciferol (VITAMIN D) 1000 UNIT Capsule 1 daily Examination: Vital signs: BP 144/76 | Temp (Src) 98.3 (Tympanic) | Wt 297 lbs (134.718kg) | BMI 47.94 kg/m | BSA 2.5 m General: He appears well and is no acute distress. Skin: psoriatic patches on elbows, and left forearm Chest: Clear to ascultation bilaterally with no wheezing, rales, or rhonchi. Heart: Rate regular and rhythm with normal S1 and S2. No murmurs, rubs or gallops. Extremities: No edema. Musculoskeletal: Swollen joints: right 2-5 MCP Tender joints: bilateral 2-5 MCP Assessment: ICD-10-CM 1. Psoriatic arthritis (HCC) L40.50 2. Generalized osteoarthritis M15.9 3. Encounter for long-term (current) use of high-risk medication Z79.899 Mr. Campbell returns today for management of psoriatic arthritis. His disease remains active despite using 10 mg total of corticosteroids and monthly Cosentyx at 300 mg. He has been on Cosentyx for almost a year and his disease remains active. Plan: 1. Discussed the above in detail with the patient and his . All questions were answered. 2. Will stop Cosentyx and try Taltz. Ok to start Taltz on 11/23/18 if it is approved. 3. Can take prednisone 10 mg daily in the interim. 4. He was encouraged to contact me with any questions or concerns. 5. Follow-up: Return in about 4 months (around 03/19/2019). | Check-out note: Ok to overbook Nadeen Steiner MD PhD Rheumatology CC: Nimo Stewart MD documented in this encounter Nursing Notes * Heather Ogden LPN - 11/17/2018 11:43 AM EDT Chief Complaint Patient presents with Rheum Follow Up 5 month return documented in this encounter Plan of Treatment Upcoming Encounters Date Type Specialty Care Team Description 11/28/2018 Pharmacy Pharmacy Medication, [facility] Refill, [address] [address] [phone] 01/21/2019 Pharmacy Pharmacy Medication, [facility], [address] [address] [phone] Health Maintenance Due Date Last Done Comments [...] Documents on File Type Date Recorded 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
--- OUTSIDE RECORDS SUMMARY | 2023-02-05 23:42 | External Medical Summary | Summary of Care ---
Author [place] [address] Care Team Providers Care Supervisor Stage Carpentry Name Role Phone Nimo Stewart MD Primary Care Provider [phone] Reason for Visit * Reason Comments Pre Cert/Prior Auth Taltz Encounter Details Date Type Department Care Team Description 11/17/2018 [address]ill [address]umatology [address] [address] [facility] [address] [facility] ([facility])* Allergies Active Allergy Reactions Severity Noted Date [...] Ixekizumab (TALTZ) 80 MG/ML SOAJIndications:PSA (psoriatic arthritis) ([facility]) 160 mg subQ (given as two 80 mg injections) at week 0, followed by 80 mg subQ at weeks 2, 4, 6, 8, 10, and 12, then 80 mg subQ every 4 weeks 8 Syringe 0 11/19/2018 Active Ixekizumab (TALTZ) 80 MG/ML SOAJIndications:PSA (psoriatic arthritis) ([facility]) Inject 80 mg under the skin [...] - 11/19/2018 1:37 PM EDT Kirill from [facility] called to request additional information for the Taltz prior auth this is time sensitive and must be received by FRI AM please call [phone] Tea Katz Threading Machine Setter Pharmacy Refill Call Center 11/19/2018,1:38 PM * Telephone Encounter - Cuca Segura LPN - 11/19/2018 1:12 PM EDT Per [facility] the loading dose cannot be approved for the increased qty since it exceeds the qty approved by the FDA. The next step is a peer to peer. 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
--- OUTSIDE RECORDS SUMMARY | 2023-02-05 23:43 | External Medical Summary | Summary of Care ---
Author Name Unknown Organization [place] [address] Care Team Providers Care Docket Specialist Name Role Phone Nimo Stewart MD Primary Care Provider [phone] Reason for Visit * Reason Comments Medication Management Medication Refill Encounter Details Date Type Department Care Team Description 07/22/2018 Pharmacy [facility] [address] [facility] [place] [address] Medication, [facility], [facility] [address] [facility] [address] [place] [address] Encounter for medication refill* Allergies Active Allergy Reactions Severity Noted Date Comments Codeine 09/20/2014 documented as of this encounter (statuses as of 07/22/2018) Medications Medication Sig Dispensed Refills Start Date [...] MG Tablet 1 daily 0 10/04/2017 Active omeprazole (PRILOSEC) 20 MG CPDR TAKE 1 CAPSULE BY MOUTH DAILY 90 Cap 1 01/07/2018 Active furosemide (LASIX) 40 MG Tablet 1 tab daily 0 04/01/2018 Active gabapentin (NEURONTIN) 100 MG Capsule 1 tab daily 0 03/04/2018 Active potassium chloride ER 10 MEQ CPCR 1 tab daily 0 04/10/2018 Active Secukinumab (COSENTYX SENSOREADY 300 DOSE) 150 MG/ML SOAJIndications:PSA (psoriatic arthritis) ([facility]) Inject 2 mL under the skin every 4 weeks. 2 mL 5 04/16/2018 Active traMADol (ULTRAM) 50 MG TabletIndications:Ps oriatic arthritis ([facility]),Acute pain of both shoulders Take 2 Tabs by mouth every 6 hours as needed for Pain. 240 Tab 3 05/05/2018 Active glimepiride (AMARYL) 2 MG Tablet 2 mg. 1 tab twice daily 0 05/29/2018 Active documented as of this encounter (statuses as of 07/22/2018) Active Problems Problem Noted Date Body mass [...] as of this encounter (statuses as of 07/22/2018) Social History Tobacco Use Types Packs/Day Years Used Date Never Smoker Smokeless Tobacco: Never Used Alcohol Use Drinks/Week oz/Week Comments Yes 1-2 drinks/bam h Sex Assigned at Date Recorded Not on file Job Start Date Occupation Industry Not on file Not on file Not on file Travel History Travel Start Travel End documented as of this encounter Progress Notes * Tyler Arguello RPh - 07/22/2018 12:40 PM [facility] Medication Therapy Management Specialty Pharmacy Re-Assessment Note Name: Sarwat Campbell Patient is a 73 year old male presently on a medication regimen of Cosentyx for psoriatic arthritis Disease Type: Autoimmune, Psoriatic Arthritis (PsA) Current medication regimen for above noted indication: Cosentyx Date of initiation of present therapy: approximately 01/2018. Is this a new therapy? no Stop date for present therapy: not applicable at this time. Prior DMARD Therapy Prior history of DMARD? NO Side effects: Is patient experiencing any side effects so bothersome that patient is considering discontinuing medication? no What does patient do when he has these side effects? n/a Assessment of education: basic understanding. Education provided today: no. Adherence: In the last month, how many [...] every day =3 Regimen effectiveness: Labs reviewed: No. Imaging studies reviewed: No Other: n/a. Patient account of regimen effectiveness: improvement in condition/symptoms. Recent hospitalization/ER for above noted condition: no. Disease in remission or cured: no Impairment: Number of work/school days missed in last month due to above noted condition: 0 Number of days less productive in last 3 months due to above noted condition: 5. Intervention: adherence and education: no issues Medication Shipment Information: Prior authorization date: not applicable. Discussed delivery procedure? yes; patient verbalized understanding. Location Medication Delivered too? Home Discussed refill procedure? yes; patient verbalized understanding. Discussed copay of prescription? yes; patient verbalized understanding. Discussed payment options? yes; patient verbalized understanding. Shipment date: 07/23/18. Medication to be shipped to: [address] [place] [address] Tyler Arguello RPh Clinical Pharmacist 07/22/2018, 12:40 PM documented in this encounter Plan of Treatment Upcoming Encounters Date Type Specialty Care Team Description 08/15/2018 Pharmacy Pharmacy Medication, [facility] Refill, [facility] [address] [address] [phone] 11/17/2018 Office Visit Rheumatology Nadeen Steiner MD [address] [facility] [address] [phone] Nurse Viki Sanon Rheumatology [place] [facility] [facility] [address] [phone] 01/21/2019 Pharmacy Pharmacy Medication, [facility], [address] [address] [phone] Health Maintenance Due Date Last Done Comments [...] YEARLY 11/25/2017 Influenza Vaccine (FLU shot) (#1) 2018 MENINGOCOCCAL (MENACTRA) Aged Out No longer eligible based on patient's age to complete this topic documented as of this encounter Implants Not on filedocumented as of this encounter Visit Diagnoses Diagnosis Encounter for medication refill- Primary Issue of repeat prescriptions documented in this encounter Advance Directives Patient has advance care planning documents on file. For more information, please contact: [place] [id number]
--- OUTSIDE RECORDS SUMMARY | 2023-02-05 23:43 | External Medical Summary | Summary of Care ---
Author Name Unknown Organization [place] [address] Care Team Providers Care Mathematics Technician Name Role Phone Nimo Stewart MD Primary Care Provider [phone] Reason for Visit * Reason Comments Medication Refill Encounter Details Date Type Department Care Team Description 04/11/2018 Pharmacy [facility] [address] [facility], [address] Floor [place], [place] [id number] Medication, [facility] Refill, [facility] [address] [facility] [address] [place] [address] Encounter for medication refill* Allergies Active Allergy Reactions Severity Noted Date Comments Codeine 09/20/2014 as of this encounter Medications Medication Sig Dispensed Refills Start Date End Date Status Aspirin 81 MG Tablet 1 daily 0 Active Cholecalciferol (VITAMIN D) 1000 UNIT Capsule 1 daily 0 Active amoxicillin (AMOXIL) 500 MG Capsule For dental procedures 0 10/03/2015 Active glimepiride (AMARYL) 4 MG Tablet 1 tab twice daily 0 09/13/2016 Active amLODIPine (NORVASC) 10 MG Tablet 1 [...] 0 04/02/2017 Active PredniSONE (DELTASONE) 10 MG TabletIndication s:Psoriatic arthritis (HCC) half tab daily 100 Tab 3 10/10/2017 Active traMADol (ULTRAM) 50 MG TabletIndication s:Psoriatic arthritis (HCC),Acute pain of both shoulders Take 2 Tabs by mouth every 6 hours as needed for Pain. 240 Tab 3 10/25/2017 Active atorvaSTATin (LIPITOR) 10 MG Tablet 1 daily 0 10/04/2017 Active omeprazole (PRILOSEC) 20 MG CPDR TAKE 1 CAPSULE BY MOUTH DAILY 90 Cap 1 01/07/2018 Active Secukinumab (COSENTYX SENSOREADY PEN) 150 MG/ML SOAJIndications: PSA (psoriatic arthritis) ([facility]) Inject 1 mL under the skin every 4 weeks. 1 Pre-filled Pen Syringe Dosing Unit 5 01/13/2018 Active Secukinumab (COSENTYX SENSOREADY PEN) 150 MG/ML SOAJIndications: PSA (psoriatic arthritis) ([facility]) Inject 150mg at week 0,1,2,3 and 4 5 Pre-filled Pen Syringe Dosing Unit 0 01/13/2018 8 Discontinued as of this encounter Active Problems Problem Noted Date Body mass [...] Overview: adenomatous polyps, f/u in 5 yr as of this encounter Social History Tobacco Use Types Packs/Day Years Used Date Never Smoker Smokeless Tobacco: Never Used Alcohol Use Drinks/Week oz/Week Comments Yes 1-2 drinks/bam h Sex Assigned at Date Recorded Not on file Job Start Date Occupation Industry Not on file Not on file Not on file Travel History Travel Start Travel End as of this encounter Progress Notes * Destini Leavitt V, LIDYA - 04/15/2018 3:19 PM EST Patient is in enrolled in [employer] RX:Cosentyx Monty Amount:Open ended Patient is waiting to hear back from doctor about increasing the dose of Cosentyx. Program ID:[id number] Group:[id number] BIN:[id number] PCN:[id number] Effective dates:04/15/2018-06/09/2019 Destini Leavitt Pharmacy Collaborative Teacher [facility] 04/15/2018,3:20 PM' * Gaby Amanda LIDYA - 04/14/2018 12:12 PM EST cosentyx refill list left message Gaby Amanda Animal Tech [facility] 04/14/2018,12:12 PM in this encounter Plan of Treatment Upcoming Encounters Date Type Specialty Care Team Description 04/25/2018 Pharmacy Pharmacy Medication, [facility] Refill, [address] [address] [phone] 05/02/2018 Pharmacy Pharmacy Medication, [facility], [address] [address] [phone] 07/17/2018 Office Visit Rheumatology Nadeen Steiner MD [address] [place] [address] Health Maintenance Due Date Last Done Comments Yearly B-12 1945 DIABETES-EYE EXAM 1961 DIABETES-FOOT EXAM 1961 DIABETES-HGBA1C EVERY 6 MONTHS 1961 DTaP,Tdap,and Td Vaccines (1 - Tdap) 1962 PNEUMOCOCCAL ADULT 65 YRS AND OVER (1 of 2 - PCV13) COLONOSCOPY-EVERY 5 YRS AGES 18-100 01/04/201401/04 *BASELINE EKG FOR HTN 09/23/2014 *DEPRESSION SCREENING, ANNUAL FOR PTS 18 AND OVER 09/08 *URINE PROTEIN ONCE FOR HTN-DIPSTICK ACCEPTABLE 2014 *BASIC METABOLIC PANEL (BMP) FOR HTN YEARLY 11/25/2017 Influenza Vaccine (FLU shot) (#1) 2018 as of this encounter Implants Not on fileas of this encounter Visit Diagnoses Diagnosis Encounter for medication refill- Primary Issue of repeat prescriptions in this encounter Advance Directives Patient has advance care planning documents on file. For more information, please contact: [place] [phone]
--- OUTSIDE RECORDS SUMMARY | 2023-02-05 23:43 | External Medical Summary | Summary of Care ---
Author Name Unknown Organization [place] [address] Care Team Providers Care Rib Chopper Name Role Phone Nimo Stewart MD Primary Care Provider [phone] Reason for Visit * Reason Comments Medication Management Education Encounter Details Date Type Department Care Team Description 04/17/2018 Pharmacy [facility] [address] [facility], [address]th [place] [address] Medication, [facility] Special[facility], [facility] [address] [facility] [address] [place] [address] Encounter for medication refill* Allergies [...] 3 10/10/2017 Active traMADol (ULTRAM) 50 MG TabletIndications:Ps oriatic [...] 300 DOSE) 150 MG/ML SOAJIndications:PSA (psoriatic arthritis) ([facility]) Inject 2 mL under the skin every 4 weeks. 2 mL 5 04/16/2018 Active as of this encounter Active Problems Problem [...] this encounter Progress Notes * Matt Meza, [facility] - 04/21/2018 2:15 PM EST Medication Therapy Management Specialty Pharmacy Re-Assessment Note Name: Sarwat Campbell Patient is a 72 year old male presently on a medication regimen of cosentyx for psoriasis. + psa Current medication regimen for above noted indication: cosentyx Dose increased to 300mg every 4 weeks - patient aware Date of initiation of present therapy: unsure. Is this a new therapy? no Stop date for present therapy: not applicable at this time. Side effects: Is patient experiencing any side effects so bothersome that patient is considering discontinuing medication? yes What does patient do when he has these side effects? n/a Assessment of education: thorough understanding. Education provided today: yes; verbal. Adherence: In the last month, how many times has patient missed a dose of above noted medication? 0. In the last month, how many times has patient taken dosage later than instructed? 0. Concomitant Medication(s): Any medication changes (including OTC/herbals)? no new medications/OTC/herbals. Status update: Any new co-morbidities: no. Regimen effectiveness: Labs reviewed: No. Imaging studies reviewed: No Other: n/a. Patient account of regiment effectiveness: improvement in condition/symptoms. Recent hospitalization/ER for above noted condition: no. Disease in remission or cured: not applicable Medication Shipment Information: Prior authorization date: unknown. Discussed delivery procedure? yes; patient verbalized understanding. Discussed refill procedure? yes; patient verbalized understanding. Discussed copay of prescription? yes; patient verbalized understanding. Discussed payment options? yes; patient verbalized understanding. Shipment date: 04/22/2018. Medication to be shipped to: [address] [place] [address] Matt Meza [facility] Clinical Pharmacist 04/21/2018, 2:15 PM * Brinda Chester RP - 04/21/2018 8:57 AM EST Left message for training. Brinda Chester [facility], Pharm D Specialty Medication Pharmacist [facility] 04/21/2018,9:02 AM * Brinda Chester RP - 04/17/2018 11:10 AM EST Left message for patient - dose increase Cosentyx. Brinda Chester RP, Pharm D Specialty Medication Pharmacist [facility] 04/17/2018,11:10 AM in this encounter Plan of Treatment Upcoming Encounters Date Type Specialty Care Team Description 05/19/2018 Pharmacy Pharmacy Medication, [facility] Refill, [facility] [address] [address] [phone] 07/17/2018 Office Visit Rheumatology Nadeen Steiner MD [address] [facility] [place], [place] [address] [phone] Fab, Nurse Viki Rheumatology Amb[place] [address] [facility] [place] [address] [phone] 07/22/2018 Pharmacy Pharmacy Medication, [facility], [address] [place] [address] [phone] Health Maintenance Due Date Last Done Comments [...] For more information, please contact: [place] [phone]
--- OUTSIDE RECORDS SUMMARY | 2023-02-05 23:43 | External Medical Summary | Summary of Care ---
Author Name Unknown Organization [place] [address] Care Team Providers Care Apparel Machinery Instructor Name Role Phone Nimo Stewart MD Primary Care Provider [phone] [phone] Reason for Visit * Reason Comments eRx-Medication Refill Encounter Details Date Type Department Care Team Description 07/23/2018 Refill Rheumatology [place] [address] [employer] [place] [address] Nadeen Steiner MD [address] [employer] [place] [id number] Allergies Active Allergy Reactions Severity Noted Date Comments Codeine 09/20/2014 documented as of this encounter (statuses as of 07/23/2018) Medications Medication Sig Dispensed Refills Start Date [...] DOSE) 150 MG/ML SOAJIndications:P SA (psoriatic arthritis) ([facility]) Inject 2 mL under the skin every 4 weeks. 2 mL 5 04/16/2018 Active traMADol (ULTRAM) 50 MG TabletIndications :Psoriatic arthritis (HCC),Acute pain of both shoulders Take 2 Tabs by mouth every 6 hours as needed for Pain. 240 Tab 3 05/05/2018 Active glimepiride (AMARYL) 2 MG Tablet 2 mg. 1 tab twice daily 0 05/29/2018 Active omeprazole (PRILOSEC) 20 MG CPDR TAKE 1 CAPSULE BY MOUTH DAILY 90 Cap 3 07/23/2018 Active omeprazole (PRILOSEC) 20 MG CPDR TAKE 1 CAPSULE BY MOUTH DAILY 90 Cap 1 01/07/2018 07/23/2018 Discontinued documented as of this encounter (statuses as of 07/23/2018) Active Problems Problem Noted Date Body mass [...] as of this encounter (statuses as of 07/23/2018) Social History Tobacco Use Types Packs/Day Years [...] Telephone Encounter - Nadeen Steiner MD - 07/23/2018 12:51 PM EST Signed Prescriptions: Disp Refills omeprazole (PRILOSEC) 20 MG CPDR 90 Cap 3 Sig: TAKE 1 CAPSULE BY MOUTH DAILY Authorizing Provider: NADEEN STEINER * Telephone Encounter - Cherise Jo LPN - 07/23/2018 10:59 AM EST Pending Prescriptions: Disp Refills omeprazole (PRILOSEC) 20 MG CPDR [Pharmac*90 Cap 3 Sig: TAKE 1 CAPSULE BY MOUTH DAILY * Telephone Encounter - Cherise Jo LPN - 07/23/2018 10:58 AM EST Pending Prescriptions: Disp Refills omeprazole (PRILOSEC) 20 MG CPDR [Pharmac*90 Cap 3 Sig: TAKE 1 CAPSULE BY MOUTH DAILY Last Office Visit: 12/30/2017 Next Office Visit: 11/17/2018 Scheduled Provider(s): Nadeen Steiner MD; Nurse Arrival [facility] If no future appointments scheduled, and last appointment is greater than a year ago, please schedule patient for a follow-up appointment Last date the medication was ordered: 01/07/18 Patient Phone Numbers Labs: Lab Results Component Value Date/Time CREAT 1.00 11/20/2016 documented in this encounter Plan of Treatment Upcoming Encounters Date Type Specialty Care Team Description 08/15/2018 Pharmacy Pharmacy Medication, [facility], [address] [address] [phone] 11/17/2018 Office Visit Rheumatology [facility] [facility] [address] [phone] Fab, Nurse Viki Rheumatology [place] [facility] [facility] [address] [phone] 01/21/2019 Pharmacy Pharmacy Medication, [facility], [address] [address] [phone] Health Maintenance Due Date Last Done Comments [...] filedocumented as of this encounter Advance Directives Patient has advance care planning documents on file. For more information, please contact: [place] [id number]
--- OUTSIDE RECORDS SUMMARY | 2023-02-05 23:43 | External Medical Summary | Summary of Care ---
Author Name Unknown Organization [place] [address] Care Team Providers Care Technical Sales Consultant Name Role Phone Nimo Stewart MD Primary Care Provider +1 [phone] Encounter Details Date Type Department Care Team Description 06/18/2018 Telephone Rheumatology [facility] [address] [employer] [place] [id number] Nadeen Stiener MD [address] [employer] [place] [address] [phone] Allergies Active Allergy Reactions Severity Noted Date [...] 300 DOSE) 150 MG/ML SOAJIndications:PSA (psoriatic arthritis) ([facility]) Inject 2 mL under the skin every 4 weeks. 2 mL 5 04/16/2018 Active traMADol (ULTRAM) 50 MG TabletIndications:Ps oriatic arthritis ([facility]),Acute pain of both shoulders Take 2 Tabs by mouth every 6 hours as needed for Pain. 240 Tab 3 05/05/2018 Active glimepiride (AMARYL) 2 MG Tablet 2 mg. 1 tab twice daily 0 05/29/2018 Active as of this encounter Active Problems [...] Start Travel End as of this encounter Miscellaneous Notes * Telephone Encounter - Lizeth Paiz OSA - 06/18/2018 12:22 PM EST Patient is scheduled at [facility] in [place] with Jose on 06/26/18 at 1:00pm. All information faxed today. lmom for patient to return, please make him aware of date and time. He will need to take his photo ID and insurance card * Telephone Encounter - Ann NeelyLIDYA - 06/18/2018 12:10 PM EST Pt has referral for Orthopedics. Pt will take any day and any time, [facility] is the preferred place. Call pt with dates and times. in this encounter Plan of Treatment Upcoming Encounters Date Type Specialty Care Team Description 06/18/2018 Pharmacy Pharmacy Medication, [facility], [address] [address] [phone] 07/22/2018 Pharmacy Pharmacy Medication, [facility], [address] [address] [phone] 11/17/2018 Office Visit Rheumatology Nadeen Steiner MD 25[address] [place] [address] [phone] Nurse Viki Sanon Rheumatology [place] 2520 [facility] [place] [address] [phone] Health Maintenance Due Date Last Done Comments Yearly B-12 1943 DIABETES-EYE EXAM 1961 DIABETES-FOOT EXAM 1961 DIABETES-HGBA1C EVERY 6 MONTHS 1961 DTaP,Tdap,and Td Vaccines (1 - Tdap) 1962 PNEUMOCOCCAL ADULT 65 YRS AND OVER (1 of 2 - PCV13) COLONOSCOPY-EVERY 5 YRS AGES 18-100 01/04/201401/04 *DEPRESSION SCREENING, ANNUAL FOR PTS 18 AND OVER 09/08 *URINE PROTEIN ONCE FOR HTN-DIPSTICK ACCEPTABLE 2014 *BASIC METABOLIC PANEL (BMP) FOR HTN YEARLY 11/25/2017 Influenza Vaccine (FLU shot) (#1) 2018 as of this encounter Implants Not on fileas of this encounter Advance Directives Patient has advance care planning documents on file. For more information, please contact: [place] [id number]
--- OUTSIDE RECORDS SUMMARY | 2023-02-05 23:43 | External Medical Summary | Summary of Care ---
Author Name Unknown Organization [place] [address] Care Team Providers Care Tuck Pointer Name Role Phone Nimo Stewart MD Primary Care Provider [phone] [phone] Reason for Visit * Reason Comments Medication Refill Encounter Details Date Type Department Care Team Description 10/01/2018 Pharmacy [facility] [address] [facility], 4th Floor [place], [place] [id number] Medication, [facility] Refill, [facility] [address] [facility] [address] [place] [address] Encounter for medication refill* Allergies Active Allergy Reactions Severity Noted Date Comments Codeine 09/20/2014 documented as of this encounter (statuses as of 10/01/2018) Medications Medication Sig Dispensed Refills Start Date [...] 150 MG/ML SOAJIndications:PSA (psoriatic arthritis) ([facility]) Inject 2 mL under the skin every 4 weeks. 2 mL 5 04/16/2018 Active traMADol (ULTRAM) 50 MG TabletIndications:Ps oriatic arthritis ([facility]),Acute pain [...] as of this encounter (statuses as of 10/01/2018) Active Problems Problem Noted Date Body mass [...] as of this encounter (statuses as of 10/01/2018) Social History Tobacco Use Types Packs/Day Years [...] Notes * Marta Guevara PHARM Tech - 10/01/2018 2:55 PM EDT cosentyx 1st left message. Marta Guevara Manager Of Human Resources [facility] 10/01/2018'2:56 PM documented in this encounter Plan of Treatment Upcoming Encounters Date Type Specialty Care Team Description 10/15/2018 Pharmacy Pharmacy Medication, [facility] Specialty Refill, [address] [address] [phone] 11/17/2018 Office Visit Rheumatology Nadeen Steiner MD 2520 [place] [address] [phone] Nurse Viki Sanon Rheumatology [place] 2520 [facility] [place] [address] [phone] 01/21/2019 Pharmacy Pharmacy Medication, [facility] Specialty, [address] [address] [phone] Health Maintenance Due Date Last Done Comments [...] For more information, please contact: [place] [phone]
--- OUTSIDE RECORDS SUMMARY | 2023-02-05 23:43 | External Medical Summary | Summary of Care ---
Author Name Unknown Organization [place] [address] Care Team Providers Care Campaign Consultant Name Role Phone Nimo Stewart MD Primary Care Provider [phone] [phone] Encounter Details Date Type Department Care Team Description 06/18/2018 Telephone Rheumatology [facility] [address] [place] [id number] Nadeen Steiner MD [address] [employer] [place] [address] [phone] Allergies Active Allergy Reactions Severity Noted Date [...] 300 DOSE) 150 MG/ML SOAJIndications:PSA (psoriatic arthritis) ([facility]) Inject 2 mL under the skin every 4 weeks. 2 mL 5 04/16/2018 Active traMADol (ULTRAM) 50 MG TabletIndications:Ps oriatic arthritis ([facility]),Acute pain of both shoulders Take [...] 12:22 PM EST Patient is scheduled at [facility] in [place] with Jose on 06/26/18 at 1:00pm. All information faxed today. lmom for patient to return, please make him aware of date and time. He will need to take his photo ID and insurance card * Telephone Encounter - Ann NeelyLIDYA - 06/18/2018 12:10 PM EST Pt has referral for Orthopedics. Pt will take any day and any time, [facility] is the preferred place. Call pt with dates and times. in this encounter Plan of Treatment Upcoming Encounters Date Type Specialty Care Team Description 06/18/2018 Pharmacy Pharmacy Medication, [facility], [address] [address] [phone] 07/22/2018 Pharmacy Pharmacy Medication, [facility], [address] [address] [phone] 11/17/2018 Office Visit Rheumatology Nadeen Steiner MD 2520 [place] [address] [phone] Nurse Viki Sanon Rheumatology [place] 2520 [facility] [place] [address] [phone] Health Maintenance Due Date Last Done Comments [...] For more information, please contact: [place] [phone]
--- OUTSIDE RECORDS SUMMARY | 2023-02-05 23:43 | External Medical Summary | Summary of Care ---
Author Name Unknown Organization [facility] Address [place] [address] Care Team Providers Care Website Optimization Strategist Name Role Phone Nimo Stewart MD Primary Care Provider +1 -[phone] Reason for Visit * Reason Comments Precert Approved Cosentyx Encounter Details Date Type Department Care Team Description 04/14/2018 Telephone Rheumatology, [place] [place] [address] Nadeen Steiner MD [facility] [facility] [address] Precert Approved (Cosentyx ) Allergies Active Allergy Reactions Severity Noted Date [...] Secukinumab (COSENTYX SENSOREADY 300 DOSE) 150 MG/ML SOAJIndications: PSA (psoriatic arthritis) ([facility]) Inject 2 mL under the skin every 4 weeks. 2 mL 5 04/16/2018 Active Secukinumab (COSENTYX SENSOREADY PEN) 150 MG/ML SOAJIndications: PSA (psoriatic arthritis) ([facility]) Inject 1 mL under the skin every 4 weeks. 1 Pre-filled Pen Syringe Dosing Unit 5 01/13/2018 8 Discontinued as of this encounter [...] Telephone Encounter - Cuca Segura LPN - 04/16/2018 2:08 PM EST Noted * Telephone Encounter - Nadeen Steiner MD - 04/16/2018 1:22 PM EST Order signed. * Telephone Encounter - Cuca Segura LPN - 04/16/2018 1:20 PM EST Please sign order to go to [facility] * Telephone Encounter - Roselia Devine OSA - 04/15/2018 5:23 PM EST Approved. Referral notes entered * Telephone Encounter - Roselia Devine OSA - 04/15/2018 10:04 AM EST Faxed PA request and clinical to [facility] * Telephone Encounter - Cuca Segura LPN - 04/14/2018 3:35 PM EST Please auth, thx * Telephone Encounter - Nadeen Steiner MD - 04/14/2018 2:13 PM EST Please initiate prior authorization for increasing Cosentyx to 300 mg subcutaneous injection every 4 weeks for treatment of psoriatic arthritis and severe plaque psoriasis. Patient has some response to 150 mg SQ every 4 weeks. in this encounter Plan of Treatment Upcoming Encounters Date Type Specialty Care Team Description 04/25/2018 Pharmacy Pharmacy Medication, [facility], [address] [address] [phone] 05/02/2018 Pharmacy Pharmacy Medication, [facility], [address] [address] [phone] 07/17/2018 Office Visit Rheumatology Nadeen Steiner MD [address] [facility] [address] [phone] Nurse Viki Sanon Rheumatology [place] [address] [facility] [place] [address] [phone] Health Maintenance Due Date Last Done Comments [...] fileas of this encounter Visit Diagnoses Diagnosis PSA (psoriatic arthritis) (HCC) Psoriatic arthropathy in this encounter Advance Directives Patient has advance care planning documents on file. For more information, please contact: [place] [phone]
--- OUTSIDE RECORDS SUMMARY | 2023-02-05 23:43 | External Medical Summary | Summary of Care ---
Author Name Unknown Organization [place] [address] Care Team Providers Care Chemical Detection Expert Name Role Phone Nimo Stewart MD Primary Care Provider +1 -[phone] Reason for Visit * Reason Comments Medication Refill Encounter Details Date Type Department Care Team Description 05/19/2018 Pharmacy [facility] [address] [facility], 4th Floor [place], [place] [address] Medication, [facility] Refill, [facility] [address] [facility] [address] [place] [address] Encounter for medication refill* Allergies [...] 150 MG/ML SOAJIndications:PSA (psoriatic arthritis) ([facility]) Inject 2 mL under the skin every 4 weeks. 2 mL 5 04/16/2018 Active traMADol (ULTRAM) 50 MG TabletIndications:Ps oriatic arthritis (HCC),Acute pain of both shoulders Take 2 Tabs by mouth every 6 hours as needed for Pain. 240 Tab 3 05/05/2018 Active as of this encounter Active Problems [...] as of this encounter Progress Notes * Anthony Florez OSA - 05/21/2018 4:17 PM EST [facility] REFILL CALL NOTE Sarwat [place] 579701 Patient is a 73 year old male on the schedule today for a telephone call concerning their refill ofcosentyx Spoke to patient Does patient have any [...] left on present supply? yes Shipment date: 05-26 Delivery method:UPS Location Medication Delivered too? Home Discussed copay of prescription?:yes; patient verbalized understanding Discussed outstanding balance?:yes; patient verbalized understanding Discussed payment options?:yes; patient verbalized understanding Medication shipped to:[address] [place] [address] Satisfaction survey: na Patient reminded that they will be receiving a telephone call from pharmacy to schedule their next refill when they have approximately 1 week of medication remaining. In the interim, patient advised to call pharmacy should they have any questions or concerns. LIDYA [place] 05/21/2018, 4:20 PM in this encounter Plan of Treatment Upcoming Encounters Date Type Specialty Care Team Description 06/18/2018 Pharmacy Pharmacy Medication, [facility] Refill, [facility] [address] [place] [address] 07/17/2018 Office Visit Rheumatology Nadeen Steiner MD 2520 [place] [address] [phone] Fab, Nurse Viki Rheumatology [address] [address] [phone] 07/22/2018 Pharmacy Pharmacy Medication, [facility], [facility] [address] [place] [id number] Health Maintenance Due Date Last Done Comments [...] For more information, please contact: [place] [phone]
--- OUTSIDE RECORDS SUMMARY | 2023-02-05 23:43 | External Medical Summary | Summary of Care ---
Author Name Unknown Organization [place] [address] Care Team Providers Care Log Cutter Name Role Phone Nimo Stewart MD Primary Care Provider +1 -[phone] Reason for Visit * Reason Comments Medication Refill Encounter Details Date Type Department Care Team Description 04/11/2018 Pharmacy [facility] 25 [facility], 4th Floor [place], [place] [address] Medication, [facility] Refill, [facility] 25 [facility] [address] [place] [address] Encounter for medication refill* Allergies [...] 3 10/10/2017 Active traMADol (ULTRAM) 50 MG TabletIndications :Psoriatic arthritis (HCC),Acute pain of both shoulders Take 2 Tabs by mouth every 6 hours as needed for Pain. 240 Tab 3 10/25/2017 Active atorvaSTATin (LIPITOR) 10 MG Tablet 1 daily 0 10/04/2017 Active omeprazole (PRILOSEC) 20 MG CPDR TAKE 1 CAPSULE BY MOUTH DAILY 90 Cap 1 01/07/2018 Active Secukinumab (COSENTYX SENSOREADY PEN) 150 MG/ML SOAJIndications:P SA (psoriatic arthritis) ([facility]) Inject 150mg at week 0,1,2,3 and 4 5 Pre-filled Pen Syringe Dosing Unit 0 01/13/2018 Active Secukinumab (COSENTYX SENSOREADY PEN) 150 MG/ML SOAJIndications:P SA (psoriatic arthritis) ([facility]) Inject 1 mL under the skin every 4 weeks. 1 Pre-filled Pen Syringe Dosing Unit 5 01/13/2018 Active as of this encounter Active Problems [...] as of this encounter Progress Notes * Gaby Amanda LIDYA - 04/14/2018 12:12 PM EST cosentyx refill list left message Gaby Amanda Cyber Security Instructor [facility] 04/14/2018,12:12 PM in this encounter Plan of Treatment Upcoming Encounters Date Type Specialty Care Team Description 04/14/2018 Office Visit Rheumatology Nadeen Steiner MD [address] [facility] [place] [address] [phone] 05/02/2018 Pharmacy Pharmacy Medication, [facility], [address] [place] [address] Health Maintenance Due [...] For more information, please contact: [place] [phone]
--- OUTSIDE RECORDS SUMMARY | 2023-02-05 23:43 | External Medical Summary | Summary of Care ---
Author Name Unknown Organization [place] [address] Care Team Providers Care Fire Assistant Name Role Phone Nimo Stewart MD Primary Care Provider +1 -[phone] Reason for Visit * Reason Comments Advice Encounter Details Date Type Department Care Team Description 06/16/2018 Telephone Rheumatology [place] 1038[address] [employer] [place] [address]90603 Nadeen Steiner MD [address] [employer] [place] [address] Advice Allergies Active Allergy Reactions Severity Noted [...] 300 DOSE) 150 MG/ML SOAJIndications:PSA (psoriatic arthritis) ([facility]) Inject 2 mL under the skin every 4 weeks. 2 mL 5 04/16/2018 Active traMADol (ULTRAM) 50 MG TabletIndications:Ps oriatic arthritis ([facility]),Acute pain of both shoulders Take [...] encounter Miscellaneous Notes * Telephone Encounter - Jessie Allison OSA - 06/17/2018 7:36 AM EST scheduled * Telephone Encounter - Nadeen Steiner MD - 06/16/2018 4:53 PM EST Spoke to patient. He is having right wrist pain. Willing to come to [place] on Saturday. Please add him to my schedule for 06/18/18 at NOON. Thanks. * Telephone Encounter - Jeffry Linda Jessy, LIDYA - 06/16/2018 1:31 PM EST Patient's calling stating has a lot of pain in his hands. His appt is on 07/17/18. Pt iswanting injections in his fingers before then. Please call patient [phone]. It's ok to leave adetailed message on voiceStakeforceil. in this encounter Plan of Treatment Upcoming Encounters Date Type Specialty Care Team Description 06/18/2018 Office Visit Rheumatology Nadeen Steiner MD [facility] [place] [address] [phone] 06/18/2018 Pharmacy Pharmacy Medication, [facility], [address] [address] [phone] 07/17/2018 Office Visit Rheumatology Nadeen Steiner MD [address] [place] [address], [place] [address] [phone] Nurse Viki Sanon Rheumatology [address] [place] [address] [phone] 07/22/2018 Pharmacy Pharmacy Medication, [facility], [address] [address] [phone] Health Maintenance Due Date Last Done Comments [...] For more information, please contact: [place] [phone]
--- OUTSIDE RECORDS SUMMARY | 2023-02-05 23:43 | External Medical Summary | Summary of Care ---
Author Name Unknown Organization [place] [address] Care Team Providers Care Meat Grader Name Role Phone Nimo Stewart MD Primary Care Provider [phone] [phone] Reason for Visit * Reason Comments Medication Refill Encounter Details Date Type Department Care Team Description 08/15/2018 Pharmacy [facility] 25 [facility], 4th Floor [place], [place] [address] Medication, [facility] Refill, [facility] [address] [facility] 4th [place] [address] Encounter for medication refill* Allergies Active Allergy Reactions Severity Noted Date Comments Codeine 09/20/2014 documented as of this encounter (statuses as of 08/20/2018) Medications Medication Sig Dispensed Refills Start Date [...] 300 DOSE) 150 MG/ML SOAJIndications:PSA (psoriatic arthritis) ([facility]) Inject 2 mL under the skin every 4 weeks. 2 mL 5 04/16/2018 Active traMADol (ULTRAM) 50 MG TabletIndications:Ps oriatic arthritis ([facility]),Acute pain of both shoulders Take 2 Tabs by mouth every 6 hours as needed for Pain. 240 Tab 3 05/05/2018 Active glimepiride (AMARYL) 2 MG Tablet 2 mg. 1 tab twice daily 0 05/29/2018 Active omeprazole (PRILOSEC) 20 MG CPDR TAKE 1 CAPSULE BY MOUTH DAILY 90 Cap 3 07/23/2018 Active documented as of this encounter (statuses as of 08/20/2018) Active Problems Problem Noted Date Body mass [...] as of this encounter (statuses as of 08/20/2018) Social History Tobacco Use Types Packs/Day Years [...] Progress Notes * Lauryn Nuñez OSA - 08/20/2018 2:38 PM EDT [facility] REFILL CALL NOTE [place] 915568 Patient is a 73 year old male on the schedule today for a telephone call concerning their refill ofCosentyx. Spoke to spouse; consent on file Does patient have any questions regarding medication(s)? [...] approximately 1 week left on present supply? no Shipment date: 08/27/18 Delivery method:UPS Location Medication Delivered too? Home Discussed copay of prescription?:yes; patient verbalized understanding Discussed outstanding balance?:yes; patient verbalized understanding Discussed payment options?:yes; patient verbalized understanding Medication shipped to: [address] [place] [address] Satisfaction survey: n/a Patient reminded that they will be receiving a telephone call from pharmacy to schedule their next refill when they have approximately 1 week of medication remaining. In the interim, patient advised to call pharmacy should they have any questions or concerns. LIDYA Le 08/20/2018, 2:39 PM documented in this encounter Plan of Treatment Upcoming Encounters Date Type Specialty Care Team Description 09/17/2018 Pharmacy Pharmacy Medication, [facility] Specialty Refill, [address] [address] [phone] 11/17/2018 Office Visit Rheumatology Nadeen Steiner MD [address] [place] [address] [phone] Nurse Viki Sanon Rheumatology [place] [address] [facility] [facility] [address] [phone] 01/21/2019 Pharmacy Pharmacy Medication, [facility], [address] [place] [address] [phone] Health Maintenance Due Date Last Done Comments [...] For more information, please contact: [place] [address]
--- OUTSIDE RECORDS SUMMARY | 2023-02-05 23:43 | External Medical Summary | Summary of Care ---
Author Name Unknown Organization [facility] Address [facility] [place] [address] Care Team Providers Care Police Clerk Name Role Phone Nimo Stewart MD Primary Care Provider [phone] Reason for Visit * Reason Comments Rheum Follow Up PsA Encounter Details Date Type Department Care Team Description 04/14/2018 Office Visit Rheumatology, [place] [address] [place] [address] [place] [address] Nadeen Steiner [facility] [address] PSA (psoriatic arthritis) (HCC)*; Encounter for long-term (current) use of high-risk medication; MGUS (monoclonal gammopathy of unknown significance); Impingement syndrome of right shoulder; Impingement syndrome of left shoulder Allergies Active Allergy Reactions Severity Noted Date [...] traMADol (ULTRAM) 50 MG TabletIndication s:Psoriatic arthritis ([facility]),Acute pain of both shoulders Take 2 Tabs by mouth every 6 hours as needed for Pain. 240 Tab 3 10/25/2017 Active atorvaSTATin (LIPITOR) 10 MG Tablet 1 daily 0 10/04/2017 Active omeprazole (PRILOSEC) 20 MG CPDR TAKE 1 CAPSULE BY MOUTH DAILY 90 Cap 1 01/07/2018 Active Secukinumab (COSENTYX SENSOREADY PEN) 150 MG/ML SOAJIndications: PSA (psoriatic arthritis) ([facility]) Inject 1 mL under the skin every 4 weeks. 1 Pre-filled Pen Syringe Dosing Unit 5 01/13/2018 Active furosemide (LASIX) 40 MG Tablet 1 tab daily 0 04/01/2018 Active gabapentin (NEURONTIN) 100 MG Capsule 1 tab daily 0 03/04/2018 Active potassium chloride ER 10 MEQ CPCR 1 tab daily 0 04/10/2018 Active Secukinumab (COSENTYX SENSOREADY PEN) 150 MG/ML SOAJIndications: PSA (psoriatic arthritis) ([facility]) Inject 150mg at week 0,1,2,3 and 4 5 Pre-filled Pen Syringe Dosing Unit 0 01/13/2018 8 Discontinued Hospital, Clinic, or Other Facility Administered Medication Ordered Dose Route Frequency Start Date End Date Status Lidocaine 2 % (PF) inj 20 mgIndications:Impingement syndrome of right shoulder 20 mg IX ONCE 04/14/2018 8 Ended methylPREDNISolone acetate (DEPO-MEDROL) 40 MG/ML inj 40 mgIndications:Impingement syndrome of right shoulder 40 mg IX ONCE 04/14/2018 8 Ended Lidocaine 2 % (PF) inj 20 mgIndications:Impingement syndrome of left shoulder 20 mg IX ONCE 04/14/2018 04/14/2018 Ended methylPREDNISolone acetate (DEPO-MEDROL) 40 MG/ML inj 40 mgIndications:Impingement syndrome of left shoulder 40 mg IX ONCE 04/14/2018 04/14/2018 Ended as of this encounter Active Problems Problem [...] Start Travel End as of this encounter Last Filed Vital Signs Vital Sign Reading Time Taken Blood Pressure 132/68 04/14/2018 1:49 PM EST Pulse - - Temperature 36.9 C (98.5 F) 04/14/2018 1 :49 PM EST Respiratory Rate - - Oxygen Saturation - - Inhaled Oxygen Concentration - - Weight - - Height - - Body Mass Index - - in this encounter Progress Notes * Nadeen Steiner MD - 04/14/2018 1:47 PM EST Reason for visit: Follow-up for ongoing evaluation and treatment of psoriatic arthritis. Last Office Visit: 12/30/17 Inflammatory disease: Diagnosis date: Past treatments: steroids, methotrexate, Enbrel, Remicade (1999-August 2016) discontinued due topersistent transaminitis and diagnosis of MGUS, Otezla-loss of efficacy Current regimen: Cosentyx, prednisone History of present illness: He is accompanied by his who provides some of the history. Since the time of his last evaluation, he notes the following: he missed his last appointment because he was hospitalized for congestive heart failure. He will see a new heart doctor on . His blood sugar was down to 40 last week resulting in a fall. In the interim, he was also found to have carpal tunnel of the left hand. He has done the loading dose of Cosentyx and is now on monthly injections which he notes is helping some but not enough. He has not experienced any side effects from Cosentyx.His shoulders are his main source of his discomfort. He had x-rays done at [facility] in August and the results have not been sent to our clinic. Most recent labs from March showed no evidence of medication toxicity. 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 Hyperlipidemia E78.5 GERD (gastroesophageal reflux disease) K21.9 Hypertension I10 Psoriatic arthritis ([facility]) L40.50 Diabetes mellitus ([facility]) E11.9 Diabetic neuropathy ([facility]) E11.40 High risk medication use Z79.899 CKD (chronic kidney disease) stage 2, GFR 60-89 ml/min N18.2 Generalized osteoarthritis M15.9 Body mass index (BMI) of 45.0 to 49.9 in adult ([facility]) Z68.42 Past medical history: Reviewed and unchanged. [...] Current Outpatient Medications Medication Sig Dispense Refill furosemide (LASIX) 40 MG Tablet 1 tab daily gabapentin (NEURONTIN) 100 MG Capsule 1 tab daily potassium chloride ER 10 MEQ CPCR 1 tab daily Secukinumab (COSENTYX SENSOREADY PEN) 150 MG/ML SOAJ Inject 1 mL under the skin every 4 weeks. 1 Pre-filled Pen Syringe Dosing Unit 5 omeprazole (PRILOSEC) 20 MG CPDR TAKE 1 CAPSULE BY MOUTH DAILY 90 Cap 1 atorvaSTATin (LIPITOR) 10 MG Tablet 1 daily traMADol (ULTRAM) 50 MG Tablet Take 2 Tabs by mouth every 6 hours as needed for Pain. 240 Tab 3 PredniSONE (DELTASONE) 10 MG Tablet half tab daily 100 Tab 3 triamcinolone acetonide (ARISTOCORT) 0.1 % cream As directed clobetasol propionate (TEMOVATE) 0.05 % ointment As needed metFORMIN (GLUCOPHAGE) 500 MG Tablet 2 tabs daily amLODIPine (NORVASC) 10 MG Tablet 1 daily glimepiride (AMARYL) 4 MG Tablet 1 tab twice daily Lisinopril 40 MG Tablet 1 tab daily metoprolol tartrate (LOPRESSOR) 100 MG Tablet 1 tab twice daily amoxicillin (AMOXIL) 500 MG Capsule For dental procedures Aspirin 81 MG Tablet 1 daily Cholecalciferol (VITAMIN D) 1000 UNIT Capsule 1 daily Examination: Vital signs: BP 132/68 | Temp 98.5 General: He appears well and is in in no acute distress. Skin: Psoriatic plaques on elbows Chest: Clear to ascultation bilaterally with no wheezing, rales, or rhonchi. Heart: Rate regular and rhythm with normal S1 and S2. No murmurs, rubs or gallops. Extremities: 1+ pitting lower extremity edema Musculoskeletal: Positive painful arc testing on each side, mostly anterior tenderness of each shoulder Swollen joints: None Tender joints: Shoulders Diagnostic data reviewed Outside labs from 03/11/18 reviewed and scanned in [facility] Assessment: ICD-10-CM 1. PSA (psoriatic arthritis) ([facility]) L40.50 2. Encounter for long-term (current) use of high-risk medication Z79.899 3. MGUS (monoclonal gammopathy of unknown significance) D47.2 Mr. Campbell returns today for management of psoriatic arthritis. He is finding some benefit with Cosentyx but continues to have active disease. Plan: 1. Discussed the above in detail with the patient. All questions were answered. 2. Prior authorization to increase Cosentyx to 300 mg subcutaneous every 4 weeks initiated. 3. Procedure: Patient identified, procedure verified, site verified. Risks/benefits discussed. Informed consent obtained. Final verification of procedure. Timeout performed. Application of topical anesthetic and sterile preparation. injection site: bilateral shoulder injected with Depomedrol 40 mg m ixed with 1 ml of 2% lidocaine. Patient tolerated well, no complications. Post procedure instructions provided. 4. He was encouraged to contact me with any questions or concerns. 5. Return to clinic in 3 months or sooner if problems arise. Nadeen Steiner MD PhD Rheumatology CC: Nimo Stewart MD in this encounter Nursing Notes * Cuca Segura LPN - 04/14/2018 1:49 PM EST Chief Complaint Patient presents with Rheum Follow Up PsA in this encounter Plan of Treatment Upcoming Encounters Date Type Specialty Care Team Description 04/25/2018 Pharmacy Pharmacy Medication, [facility] Refill, [address] [address] [phone] 05/02/2018 Pharmacy Pharmacy Medication, [facility], [address] [address] [phone] 07/17/2018 Office Visit Rheumatology Nadeen Steiner MD [address] [place] [address] Health Maintenance Due Date Last [...] PSA (psoriatic arthritis) (HCC)- Primary Psoriatic arthropathy Encounter for long-term (current) use of high-risk medication Encounter for long-term (current) use of other medications MGUS (monoclonal gammopathy of unknown significance) Monoclonal paraproteinemia Impingement syndrome of right shoulder Other affections of shoulder region, not elsewhere classified Impingement syndrome of left shoulder Other affections of shoulder region, not elsewhere classified in this encounter Administered Medications Inactive Administered Medications - up to 3 most recent administrations Medication Order MAR Action Action Date Dose Rate Site Lidocaine 2 % (PF) inj 20 mg 20 mg (1 mL), Intra-Articular, ONCE, Sat04/14/18 at 1800, For 1 dose Given 04/14/2018 1:56 PM EST 20 mg Shoul frank Right Lidocaine 2 % (PF) inj 20 mg 20 mg (1 mL), Intra-Articular, ONCE, Sat04/14/18 at 1800, For 1 dose Given 04/14/2018 1:55 PM EST 20 mg Shoul frank Left methylPREDNISolone acetate (DEPO-MEDROL) 40 MG/ML inj 40 mg 40 mg, Intra-Articular, ONCE, Sat04/14/18 at 1800, For 1 dose Given 04/14/2018 1:56 PM EST 40 mg Shoul frank Right methylPREDNISolone acetate (DEPO-MEDROL) 40 MG/ML inj 40 mg 40 mg, Intra-Articular, ONCE, Sat04/14/18 at 1800, For 1 dose Given 04/14/2018 1:55 PM EST 40 mg Shoul frank Left in this encounter Advance Directives Patient has advance care planning documents on file. For more information, please contact: [place] [id number]"
--- OUTSIDE RECORDS SUMMARY | 2023-02-05 23:43 | External Medical Summary | Summary of Care ---
Author Name Unknown Organization [place] [address] Care Team Providers Care Flowers Salesperson Name Role Phone Nimo Stewart MD Primary Care Provider [phone] Reason for Referral * Evaluate & Treat - Unlimited Visits (Within 10 days (routine)) Status Reason Specialty Diagnoses / Procedures Referred By Contact Referred To Contact Pending Review Specialty Services Required Orthopaedic Surgery Diagnoses Carpal tunnel syndrome of left wrist Nadeen Steiner MD [address] [place] [address] Dom Burkett MD [address] [place] [address] Reason for Visit * Reason Comments Rheum Follow Up Encounter Details Date Type Department Care Team Description 06/18/2018 Office Visit Rheumatology, [address] [place] [address] Nadeen Steiner MD [address] [place] [address] Psoriatic arthritis (HCC)*; Encounter for long-term (current) use of high-risk medication; MGUS (monoclonal gammopathy of unknown significance); Right wrist pain; Carpal tunnel syndrome of left wrist Allergies Active Allergy Reactions Severity Noted Date [...] DOSE) 150 MG/ML SOAJIndications:P SA (psoriatic arthritis) ([facility]) Inject 2 mL under the skin every 4 weeks. 2 mL 5 04/16/2018 Active traMADol (ULTRAM) 50 MG TabletIndications :Psoriatic arthritis ([facility]),Acute pain of both shoulders Take 2 Tabs by mouth every 6 hours as needed for Pain. 240 Tab 3 05/05/2018 Active glimepiride (AMARYL) 2 MG Tablet 2 mg. 1 tab twice daily 0 05/29/2018 Active glimepiride (AMARYL) 4 MG Tablet 1 tab twice daily 0 09/13/2016 06/18/2018 Discontinued Hospital, Clinic, or Other Facility Administered Medication Ordered Dose Route Frequency Start Date End Date Status methylPREDNISolone acetate (DEPO-MEDROL) 40 MG/ML inj 40 mgIndications:Right wrist pain 40 mg IX ONCE 06/18/2018 06/18/2018 Ended Lidocaine 2 % (PF) inj 20 mgIndications:Right wrist pain 20 mg IX ONCE 06/18/2018 06/18/2018 Ended as of this encounter Active Problems [...] Vital Sign Reading Time Taken Blood Pressure 136/64 06/18/2018 11:40 AM EST Pulse - - Temperature 37 C (98.6 F) 06/18/2018 11: 40 AM EST Respiratory Rate - - Oxygen Saturation - - Inhaled Oxygen Concentration - - Weight - - Height - - Body Mass Index - - in this encounter Progress Notes * Nadeen Steiner MD - 06/18/2018 11:43 AM EST Reason for visit: Follow-up for worsening right wrist pain and ongoing evaluation and treatment of psoriatic arthritis. He is accompanied by his and granddaughter. Last Office Visit: 04/14/2018. History of present illness: His hands have been bothersome for the past 1-2 weeks. He rates his pain an 8/10 in severity. Pain is located along the ulnar aspect of the right wrist. He denies any injury or overuse. He is otherwise doing well. He does have numbness of his right hand. He had testing which included a nerve conduction study that showed carpal tunnel of the right hand. He tried to be seen at [facility] but has been having trouble getting scheduled with the hand surgeonbecause he was initially seeing a back specialist. He is interested in surgery. He is tolerating Cosentyx. His notes that his is not complaining as much with regards to his other joints. No issues with the injections. Only active psoriasis are on his elbows. He plans to getlabs done at the end of this month. 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 Hyperlipidemia E78.5 GERD (gastroesophageal reflux disease) K21.9 Hypertension I10 Psoriatic arthritis ([facility]) L40.50 Diabetes mellitus (HCC) E11.9 Diabetic neuropathy ([facility]) E11.40 High risk medication use Z79.899 CKD (chronic kidney disease) stage 2, GFR 60-89 ml/min N18.2 Generalized osteoarthritis M15.9 Body mass index (BMI) of 45.0 to 49.9 in adult ([facility]) Z68.42 Past medical history: Reviewed [...] Current Outpatient Medications Medication Sig Dispense Refill glimepiride (AMARYL) 2 MG Tablet 2 mg. 1 tab twice daily traMADol (ULTRAM) 50 MG Tablet Take 2 Tabs by mouth every 6 hours as needed for Pain. 240 Tab 3 Secukinumab (COSENTYX SENSOREADY 300 DOSE) 150 MG/ML SOAJ Inject 2 mL under the skin every 4 weeks. 2 mL 5 furosemide (LASIX) 40 MG Tablet 1 tab daily gabapentin (NEURONTIN) 100 MG Capsule 1 tab daily potassium chloride ER 10 MEQ CPCR 1 tab daily omeprazole (PRILOSEC) 20 MG CPDR TAKE 1 CAPSULE BY MOUTH DAILY 90 Cap 1 atorvaSTATin (LIPITOR) 10 MG Tablet 1 daily PredniSONE (DELTASONE) 10 MG Tablet half tab [...] Capsule 1 daily Examination: Vital signs: BP 136/64 | Temp 98.6 General: He appears well and is in no acute distress. Skin: Psoriatic plaques on the elbows; scattered bruises on upper arms Chest: Clear to ascultation bilaterally with no wheezing, rales, or rhonchi. Heart: Rate regular and rhythm with normal S1 and S2. No murmurs, rubs or gallops. Extremities: No edema. Musculoskeletal: Swollen joints: None Tender joints: Right ulnar styloid Assessment: ICD-10-CM 1. Psoriatic arthritis (HCC) L40.50 2. Encounter for long-term (current) use of high-risk medication Z79.899 3. MGUS (monoclonal gammopathy of unknown significance) D47.2 4. Right wrist pain M25.531 5. Carpal tunnel syndrome of left wrist G56.02 Mr. Campbell returns today for management of psoriatic arthritis. He is having left wrist pain today and would like a corticosteroid injection. Past treatment with local corticosteroid injections have been beneficial. He has left carpal tunnel syndrome and would like a referral to Orthopedics. Plan: 1. Procedure: Patient identified, procedure verified, site verified. Risks/benefits discussed. Informed consent obtained. Final verification of procedure. Timeout performed. Application of topical anesthetic and sterile preparation. injection site: right wrist injected with Depomedrol 40 mg mixed wi th 1 ml of 2% lidocaine. Patient tolerated well, no complications. Post procedure instructions provided. 2. No changes to his current regimen. 3. Labs due at the end of this month. Referral to Orthopedics provided (Dr. Burkett) 4. New standing lab orders provided (Q3 month intervals). 5. He was encouraged to contact the clinic any questions or concerns. 6. Follow-up: Return in about 5 months (around 11/16/2018). | Check-out note: In [place] Nadeen Steiner MD PhD Rheumatology CC: Nimo Stewart MD in this encounter Plan of Treatment Upcoming Encounters Date Type Specialty Care Team Description 06/18/2018 Pharmacy Pharmacy Medication, [facility] Refill, [facility] [address] [address] [phone] 07/22/2018 Pharmacy Pharmacy Medication, [facility], [facility] [address] [address] [phone] 11/17/2018 Office Visit Rheumatology Nadeen Steiner MD [address] [facility] [place] [address] [phone] Nurse Viki Sanon Rheumatology [place] [address] [facility] [place] [address] [phone] Scheduled Tests Name Priority Associated Diagnoses Order S chedule CBC/DIFF Routine Psoriatic arthritis (HCC) Encounter for long-term (current) use of high-risk medication Expected: 06/18/2018 (Approximate), Expires: 06/18/2019 HEP FUNCTION PANEL Routine Psoriatic arthritis (HCC) Encounter for long-term (current) use of high-risk medication Expected: 06/18/2018 (Approximate), Expires: 06/18/2019 CREATININE SERUM Routine Psoriatic arthritis (HCC) Encounter for long-term (current) use of high-risk medication Expected: 06/18/2018 (Approximate), Expires: 06/18/2019 Scheduled Referrals Name Priority Associated Diagnoses Order S chedule ORTHOPAEDICS REFERRAL OP Within 10 days (routine) Carpal tunnel syndrome of left wrist Ordered: 06/18/2018 Health Maintenance Due Date Last Done Comments [...] fileas of this encounter Visit Diagnoses Diagnosis Psoriatic arthritis (HCC)- Primary Psoriatic arthropathy Encounter for long-term (current) use of high-risk medication Encounter for long-term (current) use of other medications MGUS (monoclonal gammopathy of unknown significance) Monoclonal paraproteinemia Right wrist pain Pain in joint, forearm Carpal tunnel syndrome of left wrist Carpal tunnel syndrome in this encounter Administered Medications Inactive Administered Medications - up to 3 most recent administrations Medication Order MAR Action Action Date Dose Rate Site Lidocaine 2 % (PF) inj 20 mg 20 mg (1 mL), Intra-Articular, ONCE, Sat06/18/18 at 1215, For 1 dose Given 06/18/2018 12:00 PM EST 20 mg Wrist Right methylPREDNISolone acetate (DEPO-MEDROL) 40 MG/ML inj 40 mg 40 mg, Intra-Articular, ONCE, Sat06/18/18 at 1215, For 1 dose Given 06/18/2018 12:00 PM EST 40 mg Wris t Right in this encounter Advance Directives Patient has advance care planning documents on file. For more information, please contact: [place] [phone]"
--- OUTSIDE RECORDS SUMMARY | 2023-02-05 23:43 | External Medical Summary | Summary of Care ---
Author Name Unknown Organization [place] [address] Care Team Providers Care Paper Tester Name Role Phone Nimo Stewart MD Primary Care Provider [phone] Reason for Visit * Reason Comments Appointment Encounter Details Date Type Department Care Team Description 06/18/2018 Telephone Rheumatology [facility] [address] [place] [id number] Nadeen Steiner MD [address] [place] [address] Appointment Allergies Active Allergy Reactions Severity Noted Date [...] 50 MG TabletIndications:Ps oriatic arthritis ([facility]),Acute pain of both shoulders Take 2 Tabs [...] Miscellaneous Notes * Telephone Encounter - Clarisse Piedra OSA - 06/18/2018 2:17 PM EST Patient has been notified of the message. Patient has no further questions. * Telephone Encounter - Lizeth PaizLIDYA - 06/18/2018 12:22 PM EST Patient is scheduled at [facility] in [place] with Jose on 06/26/18 at 1:00pm. All information faxed today. lmom for patient to return, please make him aware of date and time. He will need to take his photo ID and insurance card * Telephone Encounter - Ann NeelyLIDYA - 06/18/2018 12:10 PM EST Pt has referral for Orthopedics. Pt will take any day and any time, [facility] is the preferred place. Call pt with dates and times. in this encounter Plan of Treatment Upcoming Encounters Date Type Specialty Care Team Description 06/18/2018 Pharmacy Pharmacy Medication, [facility] Special[facility] Refill, [address] [address] [phone] 07/22/2018 Pharmacy Pharmacy Medication, [facility], [address] [address] [phone] 11/17/2018 Office Visit Rheumatology Nadeen Steiner MD [facility] [place] [address] [phone] Nurse Viki Sanon Rheumatology [address] [place] [address] [phone] Health Maintenance Due Date Last Done Comments [...] For more information, please contact: [place] [phone]
--- OUTSIDE RECORDS SUMMARY | 2023-02-05 23:43 | External Medical Summary | Summary of Care ---
Author Name Unknown Organization [place] [address] Care Team Providers Care Sports Writer Name Role Phone Nimo Stewart MD Primary Care Provider [phone] Reason for Visit * Reason Comments Baclofen Refill Encounter Details Date Type Department Care Team Description 06/18/2018 Pharmacy [facility] [address] [facility], [address]th [place] [address] Medication, [facility] Specialty Refill, [facility] [address] [facility] [address] [place] [address] Encounter for medication refill* Allergies [...] 300 DOSE) 150 MG/ML SOAJIndications:PSA (psoriatic arthritis) ([facility]) Inject 2 mL under the skin every 4 weeks. 2 mL 5 04/16/2018 Active traMADol (ULTRAM) 50 MG TabletIndications:Ps oriatic arthritis ([facility]),Acute pain of both shoulders Take 2 Tabs [...] as of this encounter Progress Notes * Sandra Vicente, [facility] - 06/23/2018 1:27 PM EST [facility] REFILL CALL NOTE Sarwat Campbell [id number] Patient is a 73 year old male on the schedule today for a telephone call concerning their refill ofcosentyx. Spoke to spouse; consent on file incoming Does patient have any questions regarding medication(s)? no Is patient having difficulty taking medication(s) as prescribed? no Does patient have any concerns or complaints regarding possible side effects of medication(s)? no How much medication does patient have left in present supply? 1 week supply Would patient like to schedule refill of medication today which will be shipped when patient has approximately 1 week left on present supply? yes Shipment date: 06/24 Delivery method:UPS Location Medication Delivered too? Home Discussed copay of prescription?:yes; patient verbalized understanding Discussed outstanding balance?:no Discussed payment options?:no Medication shipped to:[address] [place] [address] Satisfaction survey: n/a Patient reminded that they will be receiving a telephone call from pharmacy to schedule their next refill when they have approximately 1 week of medication remaining. In the interim, patient advised to call pharmacy should they have any questions or concerns. Sandra Vicente, [facility] 06/23/2018, 1:27 PM in this encounter Plan of Treatment Upcoming Encounters Date Type Specialty Care Team Description 07/22/2018 Pharmacy Pharmacy Medication, [facility] Special[facility], [facility] [address] [id number] 11/17/2018 Office Visit Rheumatology Nadeen Steiner MD [facility] [place] [address] [phone] Nurse Viki Sanon Rheumatology [address] [place] [address] [phone] Health Maintenance Due Date Last Done Comments [...] For more information, please contact: [place] [phone]
--- OUTSIDE RECORDS SUMMARY | 2023-02-05 23:43 | External Medical Summary | Summary of Care ---
Author Name Unknown Organization [place] [address] Care Team Providers Care Travel Consultant Name Role Phone Nimo Stewart MD Primary Care Provider [phone] [phone] Reason for Visit * Reason Comments Medication Refill Encounter Details Date Type Department Care Team Description 05/05/2018 Refill Rheumatology [place] [id number] [employer] [place] [address] Nadeen Steiner MD [address] [place] [address] Psoriatic arthritis (HCC); Acute pain of both shoulders Allergies Active Allergy Reactions Severity Noted Date [...] for Pain. 240 Tab 3 05/05/2018 Active traMADol (ULTRAM) 50 MG TabletIndications :Psoriatic arthritis (HCC),Acute pain of both shoulders Take 2 Tabs by mouth every 6 hours as needed for Pain. 240 Tab 3 10/25/2017 05/05/2018 Discontinued as of this encounter Active Problems [...] Telephone Encounter - Nadeen Steiner MD - 05/05/2018 2:47 PM EST Signed Prescriptions: Disp Refills traMADol (ULTRAM) 50 MG Tablet 240 Tab3 Sig: Take 2 Tabs by mouth every 6 hours as needed for Pain.Authorizing Provider: NADEEN STEINER * Telephone Encounter - Ave [address], security guard supervisor - 05/05/2018 8:54 AM EST Pending Prescriptions: Disp Refills traMADol (ULTRAM) 50 MG Tablet 240 Tab3 Sig: Take 2 Tabs by mouth every 6 hours as needed for Pain. Last Office Visit: 12/30/2017 Next Office Visit: 07/17/2018 Scheduled Provider(s): Nadeen Steiner MD; Nurse Arrival Rheumatology [facility] If no future appointments scheduled, and last appointment is greater than a year ago, please schedule patient for a follow-up appointment Last date the medication was ordered: 10/25/2017 Patient Phone Numbers Labs: Lab Results Component Value Date/Time CREAT 1.00 11/20/2016 in this encounter Plan of Treatment Upcoming Encounters Date Type Specialty Care Team Description 05/19/2018 Pharmacy Pharmacy Medication, [facility] Specialty Refill, [address] [place] [address] [phone] 07/17/2018 Office Visit Rheumatology Nadeen Steiner MD [address] [facility] [place] [address] [phone] Fab Nurse Arrival Rheumatology [address] [place], [place] [address] [phone] 07/22/2018 Pharmacy Pharmacy Medication, [facility], [address] [place] [address] [phone] Health Maintenance Due Date Last Done Comments [...] Diagnoses Diagnosis Psoriatic arthritis (HCC) Psoriatic arthropathy Acute pain of both shoulders in this encounter Advance Directives Patient has advance care planning documents on file. For more information, please contact: [place] [id number]
--- OUTSIDE RECORDS SUMMARY | 2023-02-05 23:43 | External Medical Summary | Summary of Care ---
Author Name Unknown Organization [place] [address] Care Team Providers Care Mixer Crane Operator Name Role Phone Nimo Stewart MD Primary Care Provider [phone] [phone] Reason for Visit * Reason Comments Medication Refill Encounter Details Date Type Department Care Team Description 09/17/2018 Pharmacy [facility] [address] [facility], 4th Floor [place], [place] [id number] Medication, [facility] Refill, [facility] [address] [facility] [address]th [place] [address] Encounter for medication refill* Allergies Active Allergy Reactions Severity Noted Date Comments Codeine 09/20/2014 documented as of this encounter (statuses as of 09/17/2018) Medications Medication Sig Dispensed Refills Start Date [...] as of this encounter (statuses as of 09/17/2018) Active Problems Problem Noted Date Body mass [...] as of this encounter (statuses as of 09/17/2018) Social History Tobacco Use Types Packs/Day Years Used Date Never Smoker Smokeless Tobacco: Never Used Alcohol Use Drinks/Week oz/Week Comments Yes 1-2 drinks/bam h Sex Assigned at Date Recorded Not on file Job Start Date Occupation Industry Not on file Not on file Not on file Travel History Travel Start Travel End documented as of this encounter Progress Notes * Ave [address] PHARM Tech - 09/17/2018 4:48 PM EDT [facility] REFILL CALL NOTE Sarwat Campbell [id number] Patient is a 73 year old male [...] patient have left in present supply? 1 day supply Would patient like to schedule refill of medication today which will be shipped when patient has approximately 1 week left on present supply? yes Shipment date: 09/22/18 Delivery method:UPS Location Medication Delivered too? Home Discussed copay of prescription?:yes; patient verbalized understanding Discussed outstanding balance?:yes; patient verbalized understanding Discussed payment options?:yes; patient verbalized understanding Medication shipped to:[address] [place] [address] Satisfaction survey: n/a Patient reminded that they will be receiving a telephone call from pharmacy to schedule their next refill when they have approximately 1 week of medication remaining. In the interim, patient advised to call pharmacy should they have any questions or concerns. ALEXANDRIA Lackey 09/17/2018, 4:48 PM documented in this encounter Plan of Treatment Upcoming Encounters Date Type Specialty Care Team Description 10/01/2018 Pharmacy Pharmacy Medication, [facility] Specialty Refill, [address] [address] [phone] 11/17/2018 Office Visit Rheumatology Nadeen Steiner MD [address] [place] [place] [address] [phone] Nurse Viki Sanon Rheumatology [place] [address] [place] [address] [phone] 01/21/2019 Pharmacy Pharmacy Medication, [facility], [address] [address] [phone] Health Maintenance Due Date Last Done Comments [...] For more information, please contact: [place] [phone]
--- OUTSIDE RECORDS SUMMARY | 2023-02-05 23:44 | External Medical Summary | Summary of Care ---
Author Name Unknown Organization [place] [address] Phone Care Team Providers Care Hollow Core Door Frame Assembler Name Role Phone Nimo Stewart MD Primary Care Provider [phone] Reason for Visit * Reason Comments Precert Denied Saturnino FYI Encounter Details Date Type Department Care Team Description 12/30/2017 Telephone Rheumatology [place] [address] [facility] [place] [address] Nadeen Steiner MD [address] [place] [address] Precert Denied ( [place]); FYI Allergies Active Allergy Reactions Severity Noted Date Comments Codeine 09/20/2014 as of this encounter Medications Prescription Sig. Disp. Refills Start Date End Date Status Aspirin 81 MG Tablet 1 daily Active Cholecalciferol (VITAMIN D) 1000 UNIT Capsule 1 daily Active amoxicillin (AMOXIL) 500 MG Capsule For dental procedures 10/03/2015 Active glimepiride (AMARYL) 4 MG Tablet 1 tab twice daily 09/13/2016 Active amLODIPine (NORVASC) 10 MG Tablet 1 daily 07/13/2016 Active Lisinopril 40 MG Tablet 1 tab daily 08/27/2016 Active metoprolol tartrate (LOPRESSOR) 100 MG Tablet 1 tab twice daily 07/13/2016 Active metFORMIN (GLUCOPHAGE) 500 MG Tablet 2 tabs daily 03/07/2017 Active clobetasol propionate (TEMOVATE) 0.05 % ointment As needed 01/30/2017 Active triamcinolone acetonide (ARISTOCORT) 0.1 % cream As directed 04/02/2017 Active PredniSONE (DELTASONE) 10 MG TabletIndications: Psoriatic arthritis ([facility]) half tab daily 100 Tab 3 10/10/2017 Active traMADol (ULTRAM) 50 MG TabletIndications: Psoriatic arthritis ([facility]),Acute pain of both shoulders Take 2 Tabs by mouth every 6 hours as needed for Pain. 240 Tab 3 10/25/2017 Active atorvaSTATin (LIPITOR) 10 MG Tablet 1 daily 10/04/2017 Active omeprazole (PRILOSEC) 20 MG CPDR TAKE 1 CAPSULE BY MOUTH DAILY 90 Cap 1 07/05/2017 8 Discontinued as of this encounter Active Problems Problem Noted Date Body mass index (BMI) of 45.0 to 49.9 in adult ([facility]) 03/11/2017 Overview: Per Obesity protocol #1 Hyperlipidemia 09/17/2014 GERD (gastroesophageal reflux disease) 0 09/17/2014 Hypertension 09/17/2014 Psoriatic arthritis ([facility]) 09/17/2014 Overview: On Remicade 600 mg every 6 weeks--remicade discontinued due to persistent transaminitis; on Otezla. Diabetes mellitus ([facility]) 09/17/2014 Diabetic neuropathy ([facility]) 09/17/2014 High risk medication use 09/17/2014 CKD [...] Assigned at Date Recorded Not on file as of this encounter Miscellaneous Notes * Telephone Encounter - Nadeen Steiner MD - 01/07/2018 4:36 PM EDT Noted. Will send prior auth for Cosentyx. * Telephone Encounter - Roselia Devnie OSA - 01/07/2018 12:42 PM EDT Called [facility] and spoke with Rajendra. He forward the denial fax letter. Saturn[place] denied. Referral notes entered. For Medicare appeals: Request the next level of review, which is a standard appeal, or, for urgent situations, an expedited appeal. For standard appeals, please fax your request to . For expedited appeals, please call or fax your request to . * Telephone Encounter - Nadeen Steiner MD - 01/06/2018 5:09 PM EDT Please advise her that I have not heard back from her insurance. If Taltz is denied, will proceed with Cosentyx. Will not do Humira because he developed adverse reaction to Remicade and also failed Enbrel. * Telephone Encounter - Ally Ibarra OSA - 01/06/2018 4:52 PM EDT Pt's calling to let dr know they received a letter in the mail from [facility] that the prior auth was denied for Taltz. The letter stated pt was to try and fail Humira. Please advise pt at [phone]. Pt's stated a detailed message can be left on the machine. Thank you, Ally Ibarra Fiction And Nonfiction Author Pharmacy Refill Call Center 01/06/2018, 4:52 PM * Telephone Encounter - Roselia Devine OSA - 12/31/2017 1:48 PM EDT Faxed [place] request and clinical to [facility] * Telephone Encounter - Nadeen Steiner MD - 12/30/2017 9:42 AM EDT Please initiate prior authorization for Taltz for treatment of psoriatic arthritis and moderate to severe plaque psoriasis. Recent failure of Otezla. Past treatments include Remicade, Enbrel, and methotrexate which were notbeneficial Dosing for Taltz: 160 mg subQ (given as two 80 mg injections) at week 0, followed by 80 mg subQ at weeks 2, 4, 6, 8, 10, and 12, then 80 mg subQ every 4 weeks in this encounter Plan of Treatment Upcoming Encounters Date Type Specialty Care Team Description 03/31/2018 Office Visit Rheumatology Nadeen Steiner MD [address] [facility], [place] [address] Health Maintenance Due Date Last Done Comments Yearly B-12 1943 DIABETES-EYE EXAM 1961 DIABETES-FOOT EXAM 1961 DIABETES-HGBA1C EVERY 6 MONTHS 1961 DIABETES-LDL EVERY 12 MONTHS 1961 DIABETES-URINE MICROALBUMIN EVERY 12 MONTHS 1961 DTaP,Tdap,and Td Vaccines [...]
--- OUTSIDE RECORDS SUMMARY | 2023-02-05 23:44 | External Medical Summary | Summary of Care ---
Author Name Unknown Organization [facility] [address] Phone Care Team Providers Care Shaper Set Up Operator Name Role Phone Nimo Stewart MD Primary Care Provider [phone] Reason for Visit * Reason Comments MEDICATION REFILL Encounter Details Date Type Department Care Team Description 02/07/2018 Pharmacy [facility] [address] [facility], [address]th [place], [place] [id number] Medication, [facility] Refill, [facility] [address] [address] Encounter for medication refill* Allergies Active [...] directed 04/02/2017 Active PredniSONE (DELTASONE) 10 MG TabletIndications:P soriatic arthritis (HCC) half tab daily 100 Tab 3 10/10/2017 Active traMADol (ULTRAM) 50 MG TabletIndications:P soriatic arthritis ([facility]),Acute pain of both shoulders Take 2 Tabs by mouth every 6 hours as needed for Pain. 240 Tab 3 10/25/2017 Active atorvaSTATin (LIPITOR) 10 MG Tablet 1 daily 10/04/2017 Active omeprazole (PRILOSEC) 20 MG CPDR TAKE 1 CAPSULE BY MOUTH DAILY 90 Cap 1 01/07/2018 Active Secukinumab (COSENTYX SENSOREADY PEN) 150 MG/ML SOAJIndications:PSA (psoriatic arthritis) ([facility]) Inject 150mg at week 0,1,2,3 and 4 5 Pre-filled Pen Syringe Dosing Unit 0 01/13/2018 Active Secukinumab (COSENTYX SENSOREADY PEN) 150 MG/ML SOAJIndications:PSA (psoriatic arthritis) ([facility]) Inject 1 mL under the skin every 4 weeks. 1 Pre-filled Pen Syringe Dosing Unit 5 01/13/2018 Active as of this encounter Active Problems Problem Noted Date Body mass index (BMI) of 45.0 to 49.9 in adult ([facility]) 03/11/2017 Overview: Per Obesity protocol #1 Hyperlipidemia 09/17/2014 GERD (gastroesophageal reflux disease) 0 09/17/2014 Hypertension 09/17/2014 Psoriatic arthritis ([facility]) 09/17/2014 Overview: On Remicade 600 mg every 6 weeks--remicade discontinued due to persistent transaminitis; on Otezla. Diabetes mellitus ([facility]) 09/17/2014 Diabetic neuropathy ([facility]) 09/17/2014 High risk medication use 09/17/2014 [...] Not on file as of this encounter Progress Notes * Anthony Florez OSA - 02/14/2018 11:22 AM EDT [facility] REFILL CALL NOTE Sarwat Campbell [id number] Patient is a 72 year old male on the schedule today for a telephone call concerning their refill ofcosentyx Spoke to , incoming call Does patient have any questions regarding medication(s)? [...] left on present supply? yes Shipment date: 02-19 Delivery method:UPS Discussed copay of prescription?:yes; patient verbalized understanding Discussed outstanding balance?:no Discussed payment options?:no Medication shipped to:[address] [place] [address] Satisfaction survey: na Patient reminded that they will be receiving a telephone call from pharmacy to schedule their next refill when they have approximately 1 week of medication remaining. In the interim, patient advised to call pharmacy should they have any questions or concerns. LIDYA Alexander 02/14/2018, 11:22 AM * Anthony Florez OSA - 02/12/2018 12:43 PM EDT Cosentyx 1st attempt, left message. Anthony Florez Geospatial Extractor Analysis [facility] 02/12/2018,12:43 PM in this encounter Plan of Treatment Upcoming Encounters Date Type Specialty Care Team Description 02/18/2018 Pharmacy Pharmacy Medication, [facility], [address] [place] [address] [phone] 03/31/2018 Office Visit Rheumatology Nadeen Steiner MD [address] [place] [address] [phone] 05/02/2018 Pharmacy Pharmacy Medication, [facility], [facility] [address] [place] [address] [phone] Health Maintenance Due Date Last Done Comments Yearly B-12 1943 DIABETES-EYE EXAM 1961 DIABETES-FOOT EXAM 1961 DIABETES-HGBA1C EVERY 6 MONTHS 1961 DTaP,Tdap,and Td Vaccines (1 - Tdap) 1962 Zoster Vaccines HMT (1 of 2) 1993 PNEUMOCOCCAL ADULT 65 YRS AND OVER (1 [...] encounter Visit Diagnoses Diagnosis Encounter for medication ref ill - Primary Issue of repeat prescriptions in this encounter
--- OUTSIDE RECORDS SUMMARY | 2023-02-05 23:44 | External Medical Summary | Summary of Care ---
Author Name Unknown Organization [place] [address] Phone Care Team Providers Care Parts Cleaner Name Role Phone Nimo Stewart MD Primary Care Provider [phone] Reason for Visit * Reason Comments eRx-Medication Refill Prilosec Encounter Details Date Type Department Care Team Description 01/06/2018 Refill Rheumatology [place] 883130 [facility] [place] [address] Nadeen Steiner MD [address] [employer] [place] [id number] Allergies Active Allergy Reactions Severity Noted Date [...] PredniSONE (DELTASONE) 10 MG TabletIndications: Psoriatic arthritis (HCC) half tab daily 100 Tab 3 10/10/2017 Active traMADol (ULTRAM) 50 MG TabletIndications: Psoriatic arthritis ([facility]),Acute pain of both shoulders Take 2 Tabs by mouth every 6 hours as needed for Pain. 240 Tab 3 10/25/2017 Active atorvaSTATin (LIPITOR) 10 MG Tablet 1 daily 10/04/2017 Active omeprazole (PRILOSEC) 20 MG CPDR TAKE 1 CAPSULE BY MOUTH DAILY 90 Cap 1 01/07/2018 Active omeprazole (PRILOSEC) 20 MG CPDR TAKE 1 CAPSULE BY MOUTH DAILY 90 Cap 1 07/05/2017 8 Discontinued as of this encounter Active Problems Problem Noted Date Body mass index (BMI) of 45.0 to 49.9 in adult ([facility]) 03/11/2017 Overview: Per Obesity protocol #1 Hyperlipidemia 09/17/2014 GERD (gastroesophageal reflux disease) 0 09/17/2014 Hypertension 09/17/2014 Psoriatic arthritis ([facility]) 09/17/2014 Overview: On Remicade 600 mg every 6 weeks--remicade discontinued due to persistent transaminitis; on Otezla. Diabetes mellitus ([facility]) 09/17/2014 Diabetic neuropathy ([facility]) 09/17/2014 High risk medication use 09/17/2014 CKD [...] Encounter - Nadeen Steiner MD - 01/07/2018 4:33 PM EDT Signed Prescriptions: Disp Refills omeprazole (PRILOSEC) 20 MG CPDR 90 Cap 1 Sig: TAKE 1 CAPSULE BY MOUTH DAILY Authorizing Provider: NADEEN STEINER * Telephone Encounter - Heather OgdenSHAHZAD - 01/07/2018 1:31 PM EDT Pending Prescriptions: Disp Refills omeprazole (PRILOSEC) 20 MG CPDR [Pharmac*90 Cap 1 Sig: TAKE 1 CAPSULE BY MOUTH DAILY * Telephone Encounter - Chelo Nieves LPN - 01/07/2018 1:10 PM EDT Pending Prescriptions: Disp Refills omeprazole (PRILOSEC) 20 MG CPDR [Pharmac*90 Cap 1 Sig: TAKE 1 CAPSULE BY MOUTH DAILY * Telephone Encounter - Chelo Nieves LPN - 01/07/2018 1:10 PM EDT Formatting of this note may be different from the original. 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 Hyperlipidemia E78.5 GERD (gastroesophageal reflux disease) K21.9 Hypertension I10 Psoriatic arthritis (HCC) L40.50 Diabetes mellitus (HCC) E11.9 Diabetic neuropathy (HCC) E11.40 High risk medication use Z79.899 CKD (chronic kidney disease) stage 2, GFR 60-89 ml/min N18.2 Generalized osteoarthritis M15.9 Body mass index (BMI) of 45.0 to 49.9 in adult ([facility]) Z68.42 Labs: CREATININE-OUTSIDE LAB(MG/DL) Raymon Dt/Tm Resulted Value Status 11/20/16 11/22/16 1.00 FINAL POTASSIUM-OUTSIDE LAB(MMOL/L) Raymon Dt/Tm Resulted Value Status 11/20/16 11/22/16 4.2 FINAL No TSH components found No LDL components found ALT-OUTSIDE LAB(U/L) Raymon Dt/Tm Resulted Value Status 11/20/16 11/22/16 83* FINAL Hemoglobin AIC Results: No HEMOGLOBIN, A1C components found in this encounter Plan of Treatment Upcoming Encounters Date Type Specialty Care Team Description 03/31/2018 Office Visit Rheumatology Nadeen Steiner MD [address] [place] [address] Health Maintenance Due Date Last Done [...]
--- OUTSIDE RECORDS SUMMARY | 2023-02-05 23:44 | External Medical Summary | Summary of Care ---
Author Name Unknown Organization [place] [address] Phone Care Team Providers Care Belt Polisher Name Role Phone Nmio Stewart MD Primary Care Provider [phone] Reason for Visit * Reason Comments MEDICATION REFILL Encounter Details Date Type Department Care Team Description 03/13/2018 Pharmacy [facility] [address] [facility], [address]th [place], [place] [id number] Medication, [facility] Refill, [facility] [address] [address] Encounter for medication refill* Allergies [...] traMADol (ULTRAM) 50 MG TabletIndications:P soriatic arthritis ([facility]),Acute pain of both shoulders Take 2 Tabs by mouth every 6 hours as needed for Pain. 240 Tab 3 10/25/2017 Active atorvaSTATin (LIPITOR) 10 MG Tablet 1 daily 10/04/2017 Active omeprazole (PRILOSEC) 20 MG CPDR TAKE 1 CAPSULE BY MOUTH DAILY 90 Cap 1 01/07/2018 Active Secukinumab (COSENTYX SENSOREADY PEN) 150 MG/ML SOAJIndications:PSA (psoriatic arthritis) ([facility]) Inject 150mg at week 0,1,2,3 and 4 5 Pre-filled Pen Syringe Dosing Unit 0 01/13/2018 Active Secukinumab (COSENTYX SENSOREADY PEN) 150 MG/ML SOAJIndications:PSA (psoriatic arthritis) ([facility]) Inject 1 mL under the skin every 4 weeks. 1 Pre-filled Pen Syringe Dosing Unit 5 01/13/2018 Active as of this encounter Active Problems Problem Noted Date Body mass index (BMI) of 45.0 to 49.9 in adult ([facility]) 03/11/2017 Overview: Per Obesity protocol #1 Hyperlipidemia 09/17/2014 GERD (gastroesophageal reflux disease) 0 09/17/2014 Hypertension 09/17/2014 Psoriatic arthritis ([facility]) 09/17/2014 Overview: On Remicade 600 mg every 6 weeks--remicade discontinued due to persistent transaminitis; on Otezla. Diabetes mellitus ([facility]) 09/17/2014 Diabetic neuropathy ([facility]) 09/17/2014 High risk medication use 09/17/2014 CKD [...] this encounter Progress Notes * Daily Gunderson LIDYA - 03/14/2018 11:12 AM EDT [facility] REFILL CALL NOTE Sarwat Campbell [id number] Patient is a 72 year old male on the schedule today for a telephone call concerning their refill ofCOSENTYX. Spoke to Does patient have any questions regarding medication(s)? no Is patient having difficulty taking medication(s) as prescribed? no Does patient have any concerns or complaints regarding possible side effects of medication(s)? no How much medication does patient have left in present supply? NA Would patient like to schedule refill of medication today which will be shipped when patient has approximately 1 week left on present supply? yes Shipment date: 03/19/18 Delivery method:UPS Discussed copay of prescription?:yes; patient verbalized understanding Discussed outstanding balance?:yes; patient verbalized understanding Discussed payment options?:yes; patient verbalized understanding Medication shipped to:[address] [place] [address] Satisfaction survey: NA Patient reminded that they will be receiving a telephone call from pharmacy to schedule their next refill when they have approximately 1 week of medication remaining. In the interim, patient advised to call pharmacy should they have any questions or concerns. Daily Gunderson, LIDYA 03/14/2018, 11:12 AM in this encounter Plan of Treatment Upcoming Encounters Date Type Specialty Care Team Description 03/31/2018 Office Visit Rheumatology Nadeen Steiner MD [address] [place] [address] [phone] 04/11/2018 Pharmacy Pharmacy Medication, [facility] Specialty Refill, [address] [address] [phone] 05/02/2018 Pharmacy Pharmacy Medication, [facility] Specialty, [address] [address] [phone] Health Maintenance Due Date Last Done Comments [...]
--- OUTSIDE RECORDS SUMMARY | 2023-02-05 23:44 | External Medical Summary | Summary of Care ---
Author Name Unknown Organization [place] [address] Phone Care Team Providers Care Dredge Or Barge Shore Hand Name Role Phone Nimo Stewart MD Primary Care Provider [phone] [phone] Reason for Visit * Reason Comments MEDICATION REFILL Encounter Details Date Type Department Care Team Description 02/07/2018 Pharmacy [facility] 25 [facility], [address]th [place], [place] [id number] Medication, [facility] Specialty Refill, [facility] [address] [address] Encounter for medication refill* Allergies [...] traMADol (ULTRAM) 50 MG TabletIndications:P soriatic arthritis ([facility]),Acute pain of both shoulders Take 2 Tabs by mouth every 6 hours as needed for Pain. 240 Tab 3 10/25/2017 Active atorvaSTATin (LIPITOR) 10 MG Tablet 1 daily 10/04/2017 Active omeprazole (PRILOSEC) 20 MG CPDR TAKE 1 CAPSULE BY MOUTH DAILY 90 Cap 1 01/07/2018 Active Secukinumab (COSENTYX SENSOREADY PEN) 150 MG/ML SOAJIndications:PSA (psoriatic arthritis) ([facility]) Inject 150mg at week 0,1,2,3 and 4 5 Pre-filled Pen Syringe Dosing Unit 0 01/13/2018 Active Secukinumab (COSENTYX SENSOREADY PEN) 150 MG/ML SOAJIndications:PSA (psoriatic arthritis) ([facility]) Inject 1 mL under the skin every 4 weeks. 1 Pre-filled Pen Syringe Dosing Unit 5 01/13/2018 Active as of this encounter Active Problems Problem Noted Date Body mass index (BMI) of 45.0 to 49.9 in adult ([facility]) 03/11/2017 Overview: Per Obesity protocol #1 Hyperlipidemia 09/17/2014 GERD (gastroesophageal reflux disease) 0 09/17/2014 Hypertension 09/17/2014 Psoriatic arthritis ([facility]) 09/17/2014 Overview: On Remicade 600 mg every 6 weeks--remicade discontinued due to persistent transaminitis; on Otezla. Diabetes mellitus ([facility]) 09/17/2014 Diabetic neuropathy ([facility]) 09/17/2014 High risk medication use 09/17/2014 [...] Progress Notes * Anthony Florez OSA - 02/12/2018 12:43 PM EDT Cosentyx 1st attempt, left message. Taurie L Colosi Client Service Representative [facility] 02/12/2018,12:43 PM in this encounter Plan of Treatment Upcoming Encounters Date Type Specialty Care Team Description 03/31/2018 Office Visit Rheumatology Nadeen Steiner MD [address] [facility] [place] [address] [phone] 05/02/2018 Pharmacy Pharmacy Medication, [facility], [address] [place] [address] Health Maintenance Due [...]
--- OUTSIDE RECORDS SUMMARY | 2023-02-05 23:44 | External Medical Summary | Summary of Care ---
Author Name Unknown Organization [place] [address] Phone Care Team Providers Care Core Drilling Supervisor Name Role Phone Nimo Stewart MD Primary Care Provider [phone] [phone] Reason for Visit * Reason Comments MEDICATION REFILL Encounter Details Date Type Department Care Team Description 02/07/2018 Pharmacy [facility] 25 [facility], [address]th [place], [place] [id number] Medication, [facility] Specialty Refill, [facility] [address] [address] Encounter for medication refill* Allergies [...] traMADol (ULTRAM) 50 MG TabletIndications:P soriatic arthritis ([facility]),Acute pain of both shoulders Take 2 Tabs by mouth every 6 hours as needed for Pain. 240 Tab 3 10/25/2017 Active atorvaSTATin (LIPITOR) 10 MG Tablet 1 daily 10/04/2017 Active omeprazole (PRILOSEC) 20 MG CPDR TAKE 1 CAPSULE BY MOUTH DAILY 90 Cap 1 01/07/2018 Active Secukinumab (COSENTYX SENSOREADY PEN) 150 MG/ML SOAJIndications:PSA (psoriatic arthritis) ([facility]) Inject 150mg at week 0,1,2,3 and 4 5 Pre-filled Pen Syringe Dosing Unit 0 01/13/2018 Active Secukinumab (COSENTYX SENSOREADY PEN) 150 MG/ML SOAJIndications:PSA (psoriatic arthritis) ([facility]) Inject 1 mL under the skin every 4 weeks. 1 Pre-filled Pen Syringe Dosing Unit 5 01/13/2018 Active as of this encounter Active Problems Problem Noted Date Body mass index (BMI) of 45.0 to 49.9 in adult ([facility]) 03/11/2017 Overview: Per Obesity protocol #1 Hyperlipidemia 09/17/2014 GERD (gastroesophageal reflux disease) 0 09/17/2014 Hypertension 09/17/2014 Psoriatic arthritis ([facility]) 09/17/2014 Overview: On Remicade 600 mg every 6 weeks--remicade discontinued due to persistent transaminitis; on Otezla. Diabetes mellitus ([facility]) 09/17/2014 Diabetic neuropathy ([facility]) 09/17/2014 High risk medication use [...] SPECIALTY PHARMACY REFILL CALL NOTE Sarwat Campbell [id number] Patient is a 72 year old male [...] 02-19 Delivery method:UPS Discussed copay of prescription?:yes; 235. 38 patient understands. Discussed outstanding balance?:no Discussed payment options?:no Medication shipped to:[address] [place] [address] Satisfaction survey: na Patient reminded that they [...] Cosentyx 1st attempt, left message. Anthony Florez Dietary Manager [facility] 02/12/2018,12:43 PM in this encounter Plan of Treatment Upcoming Encounters Date Type Specialty Care Team Description 03/13/2018 Pharmacy Pharmacy Medication, [facility]ill, [address] [address] [phone] 03/31/2018 Office Visit Rheumatology Nadeen Steiner MD [address] [place] [address] [phone] 05/02/2018 Pharmacy Pharmacy Medication, [facility], [address] [address] [phone] Health Maintenance Due Date Last Done Comments [...]
--- OUTSIDE RECORDS SUMMARY | 2023-02-05 23:44 | External Medical Summary | Summary of Care ---
Author Name Unknown Organization [place] [address] Phone Care Team Providers Care Senior Copywriter Name Role Phone Unavailable Primary Care Provider Unavailabl e Reason for Visit * Reason Comments MEDICATION REFILL Encounter Details Date Type Department Care Team Description 12/03/2017 Pharmacy [facility] 25 [facility], 4th [place] [address] Medication, [facility] Specialty Refill, [facility] 25 [facility] 4[address] [place] [address] Encounter for medication refill* Allergies Active Allergy Reactions Severity Noted Date Comments Codeine 09/20/2014 as of this encounter Medications Prescription Sig. Disp. Refills Start Date End Date Status Aspirin 81 MG Tablet 1 daily Acti ve Cholecalciferol (VITAMIN D) 1000 UNIT [...] 0.1 % cream As directed 04/02/2017 Active omeprazole (PRILOSEC) 20 MG CPDR TAKE 1 CAPSULE BY MOUTH DAILY 90 Cap 1 07/05/2017 Active PredniSONE (MICHELLE) 5 MG TBECIndications:Psori atic arthritis ([facility]) 1 tab at 8 pm daily 30 Tab 5 07/22/2017 Active PredniSONE (DELTASONE) 10 MG TabletIndications:Pso riatic arthritis ([facility]) half tab daily 100 Tab 3 10/10/2017 Active Apremilast (OTEZLA) 30 MG TABSIndications:PSA (psoriatic arthritis) ([facility]) Take 1 Tab by mouth 2 times a day. 60 Tab 5 10/10/2017 Active traMADol (ULTRAM) 50 MG TabletIndications:Pso riatic arthritis ([facility]),Acute pain of both shoulders Take 2 Tabs by mouth every 6 hours as needed for Pain. 240 Tab 3 10/25/2017 Active as of this encounter Active Problems Problem Noted Date Body mass index (BMI) of 45.0 to 49.9 in adult ([facility]) 03/11/2017 Overview: Per Obesity protocol #1 Hyperlipidemia 09/17/2014 GERD (gastroesophageal reflux disease) 0 09/17/2014 Hypertension 09/17/2014 Psoriatic arthritis ([facility]) 09/17/2014 Overview: On Remicade 600 mg every 6 weeks Diabetes mellitus ([facility]) 09/17/2014 Diabetic neuropathy ([facility]) 09/17/2014 High risk medication use 09/17/2014 [...] of this encounter Progress Notes * Anthony Florez, LIDYA - 11/29/2017 2:04 PM EDT [facility] REFILL CALL NOTE Sarwat Campbell [id number] Patient is a 72 year old male on the schedule today for a telephone call concerning their refill ofOtezla. Spoke to patient- outgoing Does patient have any questions regarding medication(s)? no Is patient having difficulty taking medication(s) as prescribed? no Does patient have any concerns or complaints regarding possible side effects of medication(s)? no How much medication does patient have left in present supply? 2 days Would patient like to schedule refill of medication today which will be shipped when patient has approximately 1 week left on present supply? yes Shipment date: 12-02 Delivery method:UPS Discussed copay of prescription?:yes; patient verbalized understanding Discussed outstanding balance?:no Discussed payment options?:no Medication shipped to:[address] [place] [address] Satisfaction survey: na Patient reminded that they will be receiving a telephone call from pharmacy to schedule their next refill when they have approximately 1 week of medication remaining. In the interim, patient advised to call pharmacy should they have any questions or concerns. LIDYA Alexander 11/29/2017, 2:04 PM in this encounter Plan of Treatment Upcoming Encounters Date Type Specialty Care Team Description 12/03/2017 Pharmacy Pharmacy Medication, [facility] Specialty Refill, [address] [address] [phone] Encounter for medication refill* 12/30/2017 Office Visit Rheumatology Nadeen Steiner MD [facility] [place], [place] [id number] 03/12/2018 Pharmacy Pharmacy Medication, [facility], [address] [address] [phone] Health Maintenance Due Date Last Done Comments [...] 11/25/2017 Influenza Vaccine (FLU shot) (Season Ended) 2018 as of this encounter Implants Not on fileas of this encounter Visit Diagnoses Diagnosis Encounter for medication ref ill - Primary Issue of repeat prescriptions in this encounter
--- OUTSIDE RECORDS SUMMARY | 2023-02-05 23:44 | External Medical Summary | Summary of Care ---
Author Name Unknown Organization [place] [address] Phone Care Team Providers Care Lasting Machine Operator Bed Name Role Phone Nimo Stewart MD Primary Care Provider [phone] [phone] Encounter Details Date Type Department Care Team Description 03/11/2018 Result Scan [address]umatology [address] [place] [id number] Nadeen Steiner MD [address] [place] [address] <No scans attached> Allergies Active Allergy [...] traMADol (ULTRAM) 50 MG TabletIndications:P soriatic arthritis ([facility]),Acute pain of both shoulders Take 2 Tabs by mouth every 6 hours as needed for Pain. 240 Tab 3 10/25/2017 Active atorvaSTATin (LIPITOR) 10 MG Tablet 1 daily 10/04/2017 Active omeprazole (PRILOSEC) 20 MG CPDR TAKE 1 CAPSULE BY MOUTH DAILY 90 Cap 1 01/07/2018 Active Secukinumab (COSENTYX SENSOREADY PEN) 150 MG/ML SOAJIndications:PSA (psoriatic arthritis) ([facility]) Inject 150mg at week 0,1,2,3 and 4 5 Pre-filled Pen Syringe Dosing Unit 0 01/13/2018 Active Secukinumab (COSENTYX SENSOREADY PEN) 150 MG/ML SOAJIndications:PSA (psoriatic arthritis) ([facility]) Inject 1 mL under the skin every 4 weeks. 1 Pre-filled Pen Syringe Dosing Unit 5 01/13/2018 Active as of this encounter Active Problems Problem Noted Date Body mass index (BMI) of 45.0 to 49.9 in adult ([facility]) 03/11/2017 Overview: Per Obesity protocol #1 Hyperlipidemia 09/17/2014 GERD (gastroesophageal reflux disease) 0 09/17/2014 Hypertension 09/17/2014 Psoriatic arthritis ([facility]) 09/17/2014 Overview: On Remicade 600 mg every 6 weeks--remicade discontinued due to persistent transaminitis; on Otezla. Diabetes mellitus ([facility]) 09/17/2014 Diabetic neuropathy ([facility]) 09/17/2014 High risk medication use 09/17/2014 [...] Not on file as of this encounter Plan of Treatment Upcoming Encounters Date Type Specialty Care Team Description 04/11/2018 Pharmacy Pharmacy Medication, [facility] Specialty Refill, [address] [place] [address] 05/02/2018 Pharmacy Pharmacy Medication, [facility], [address] [place] [address] [phone] Health Maintenance Due Date Last Done Comments [...] Implants Not on fileas of this encounter Results * OUTSIDE LAB RESULTS (03/11/2018) in this encounter
--- OUTSIDE RECORDS SUMMARY | 2023-02-05 23:44 | External Medical Summary | Summary of Care ---
Author Name Unknown Organization [place] [address] Phone Care Team Providers Care Dry Chain Puller Name Role Phone Nimo Stewart MD Primary Care Provider [phone] [phone] Reason for Visit * Reason Comments MEDICATION REFILL Encounter Details Date Type Department Care Team Description 11/19/2017 Pharmacy [facility] 25 [facility], [address] [place] [id number] Medication, [facility] Specialty Refill, [facility] [address] [address] Encounter for medication refill* Allergies [...] PredniSONE (MICHELLE) 5 MG TBECIndications:Psori atic arthritis ([facility]) 1 tab at 8 pm daily 30 Tab 5 07/22/2017 Active PredniSONE (DELTASONE) 10 MG TabletIndications:Pso riatic arthritis ([facility]) half tab daily 100 Tab 3 10/10/2017 Active Apremilast (OTEZLA) 30 MG TABSIndications:PSA (psoriatic arthritis) ([facility]) Take 1 Tab by mouth 2 times a day. 60 Tab 5 10/10/2017 Active traMADol (ULTRAM) 50 MG TabletIndications:Pso riatic arthritis ([facility]),Acute pain of both shoulders Take 2 Tabs by mouth every 6 hours as needed for Pain. 240 Tab 3 10/25/2017 Active as of this encounter Active Problems Problem Noted Date Body mass index (BMI) of 45.0 to 49.9 in adult ([facility]) 03/11/2017 Overview: Per Obesity protocol #1 Hyperlipidemia 09/17/2014 GERD (gastroesophageal reflux disease) 0 09/17/2014 Hypertension 09/17/2014 Psoriatic arthritis ([facility]) 09/17/2014 Overview: On Remicade 600 mg every 6 weeks Diabetes mellitus ([facility]) 09/17/2014 Diabetic neuropathy ([facility]) 09/17/2014 High risk medication use 09/17/2014 CKD [...] as of this encounter Progress Notes * Arlette Dodson CPhT - 11/19/2017 10:13 AM EDT KURT 1ST ATTEMPT CALLED LEFT MESSAGE FOR RTN CALL Arlette Dodson Last Model Department Supervisor [facility] 11/19/2017,10:14 AM in this encounter Plan of Treatment Upcoming Encounters Date Type Specialty Care Team Description 11/19/2017 Pharmacy Pharmacy Medication, [facility] Refill, [address] [place] [address] Encounter for medication refill* 12/30/2017 Office Visit Rheumatology Nadeen Steiner MD [address] [place] [address] [phone] 03/12/2018 Pharmacy Pharmacy Medication, [facility], [address] [place] [address] [phone] Health Maintenance Due Date Last Done Comments [...] *URINE PROTEIN ONCE FOR HTN-DIPSTICK ACCEPTABLE 2014 Influenza Vaccine (FLU shot) (Season Ended) 2018 as of this encounter Implants Not on fileas of this encounter Visit Diagnoses Diagnosis Encounter for medication ref ill - Primary Issue of repeat prescriptions in this encounter
--- OUTSIDE RECORDS SUMMARY | 2023-02-05 23:44 | External Medical Summary | Summary of Care ---
Author Name Unknown Organization [place] [address] Phone Care Team Providers Care Medical Claims Manager Name Role Phone Nimo Stewart MD Primary Care Provider [phone] [phone] Reason for Visit * Reason Comments MEDICATION REFILL Encounter Details Date Type Department Care Team Description 11/19/2017 Pharmacy [facility] 25 [facility], [address] [place] [id number] Medication, [facility] Special[facility] Refill, [facility] [address] [address] Encounter for medication refill* Allergies [...] PredniSONE (MICHELLE) 5 MG TBECIndications:Psori atic arthritis ([facility]) 1 tab at 8 pm daily 30 Tab 5 07/22/2017 Active PredniSONE (DELTASONE) 10 MG TabletIndications:Pso riatic arthritis ([facility]) half tab daily 100 Tab 3 10/10/2017 Active Apremilast (OTEZLA) 30 MG TABSIndications:PSA (psoriatic arthritis) ([facility]) Take 1 Tab by mouth 2 times a day. 60 Tab 5 10/10/2017 Active traMADol (ULTRAM) 50 MG TabletIndications:Pso riatic arthritis ([facility]),Acute pain of both shoulders Take 2 Tabs by mouth every 6 hours as needed for Pain. 240 Tab 3 10/25/2017 Active as of this encounter Active Problems Problem Noted Date Body mass index (BMI) of 45.0 to 49.9 in adult ([facility]) 03/11/2017 Overview: Per Obesity protocol #1 Hyperlipidemia 09/17/2014 GERD (gastroesophageal reflux disease) 0 09/17/2014 Hypertension 09/17/2014 Psoriatic arthritis ([facility]) 09/17/2014 Overview: On Remicade 600 mg every 6 weeks Diabetes mellitus ([facility]) 09/17/2014 Diabetic neuropathy ([facility]) 09/17/2014 High risk medication use 09/17/2014 CKD [...] as of this encounter Progress Notes * Alrette Dodson CPhT - 11/19/2017 10:13 AM EDT KURT 1ST ATTEMPT CALLED LEFT MESSAGE FOR RTN CALL Arlette Dodson Tax Services Manager [facility] 11/19/2017,10:14 AM in this encounter Plan of Treatment Upcoming Encounters Date Type Specialty Care Team Description 12/03/2017 Pharmacy Pharmacy Medication, [facility], [address] [place] [address] Encounter for medication refill* 12/25/2017 Pharmacy Pharmacy Medication, [facility] Refill, [facility] [address] [place] [address] [phone] 12/30/2017 Office Visit Rheumatology Nadeen Steiner MD [address] [place] [address] [phone] 03/12/2018 Pharmacy Pharmacy Medication, [facility], [facility] [address] [place] [address] [phone] Health Maintenance Due Date Last Done Comments [...]
--- OUTSIDE RECORDS SUMMARY | 2023-02-05 23:44 | External Medical Summary | Summary of Care ---
Author Name Unknown Organization [place] [address] Phone Care Team Providers Care Mining And Quarrying Machinery Repairer Name Role Phone Nimo Stewart MD Primary Care Provider [phone] Encounter Details Date Type Department Care Team Description 10/10/2017 Scan Encounter Rheumatology [address] [place] [id number] Nadeen Steiner MD [address] [place] [address] <No scans attached> Allergies Active Allergy [...] atic arthritis ([facility]) 1 tab at 8 pm daily 30 Tab 5 07/22/2017 Active PredniSONE (DELTASONE) 10 MG TabletIndications:Pso riatic arthritis ([facility]) half tab daily 100 Tab 3 10/10/2017 Active Apremilast (OTEZLA) 30 MG TABSIndications:PSA (psoriatic arthritis) ([facility]) Take 1 Tab by mouth 2 times a day. 60 Tab 5 10/10/2017 Active as of this encounter Active Problems Problem Noted Date Body mass index (BMI) of 45.0 to 49.9 in adult ([facility]) 03/11/2017 Overview: Per Obesity protocol #1 Hyperlipidemia 09/17/2014 GERD (gastroesophageal reflux disease) 0 09/17/2014 Hypertension 09/17/2014 Psoriatic arthritis ([facility]) 09/17/2014 Overview: On Remicade 600 mg every 6 weeks Diabetes mellitus ([facility]) 09/17/2014 Diabetic neuropathy ([facility]) 09/17/2014 High risk medication use 09/17/2014 CKD [...] Care Team Description 12/03/2017 Pharmacy Pharmacy Medication, [facility], [address] [address] [phone] 12/30/2017 Office Visit Rheumatology Nadeen Steiner MD [address] [place] [address] [phone] 03/12/2018 Pharmacy Pharmacy Medication, [facility], [address] [place] [address] [phone] Health Maintenance Due Date Last Done Comments [...]
--- OUTSIDE RECORDS SUMMARY | 2023-02-05 23:44 | External Medical Summary | Summary of Care ---
Author Name Unknown Organization [place] [address] Phone Care Team Providers Care Churn Tender Name Role Phone Nimo Stewart MD Primary Care Provider [phone] Reason for Visit * Reason Comments Precert Denied [place] FYI Encounter Details Date Type Department Care Team Description 12/30/2017 Telephone Rheumatology [place] [id number] [place] [address] Nadeen Steiner MD [address] [place] [address] Precert Denied ( [place]); FYI Allergies [...] PredniSONE (DELTASONE) 10 MG TabletIndications: Psoriatic arthritis ([facility]) half tab daily 100 Tab 3 10/10/2017 Active traMADol (ULTRAM) 50 MG TabletIndications: Psoriatic arthritis ([facility]),Acute pain of both shoulders Take [...] (BMI) of 45.0 to 49.9 in adult ([facility]) 03/11/2017 Overview: Per Obesity protocol #1 Hyperlipidemia 09/17/2014 GERD (gastroesophageal reflux disease) 0 09/17/2014 Hypertension 09/17/2014 Psoriatic arthritis ([facility]) 09/17/2014 Overview: On Remicade 600 mg every 6 weeks--remicade discontinued due to persistent transaminitis; on Otezla. Diabetes mellitus ([facility]) 09/17/2014 Diabetic neuropathy ([facility]) 09/17/2014 High risk medication use [...] for Cosentyx. * Telephone Encounter - Roselia Devine OSA - 01/07/2018 12:42 PM EDT [facility]. [facility] [...] received a letter in the mail from [facility] that the prior auth was denied for Taltz. The letter stated pt was to try and fail Humira. Please advise pt at [phone]. Pt's stated a detailed message can be left on the machine. Thank you, Ally Ibarra Fuller Brush Worker Pharmacy Refill Call Center 01/06/2018, 4:52 PM * Telephone Encounter - Roselia Devine OSA - 12/31/2017 1:48 PM EDT Faxed PA request and clinical to [facility] * Telephone Encounter - Nadeen Steiner [...] 03/31/2018 Office Visit Rheumatology Nadeen Steiner MD [address] [facility], [place] [address] Health Maintenance Due [...]
--- OUTSIDE RECORDS SUMMARY | 2023-02-05 23:44 | External Medical Summary | Summary of Care ---
Author Name Unknown Organization [place] [address] Phone Care Team Providers Care Special Education Para Professional Name Role Phone Nimo Stewart MD Primary Care Provider [phone] Reason for Visit * Reason Comments Medication Management Education Encounter Details Date Type Department Care Team Description 01/16/2018 Pharmacy [facility] 25 [facility], [address] [place] [id number] Medication, [facility], [facility], [facility] [address] [address] Encounter for medication refill* Allergies [...] (ULTRAM) 50 MG TabletIndications:P soriatic arthritis ([facility]),Acute pain of both shoulders Take 2 Tabs by mouth every 6 hours as needed for Pain. 240 Tab 3 10/25/2017 Active atorvaSTATin (LIPITOR) 10 MG Tablet 1 daily 10/04/2017 Active omeprazole (PRILOSEC) 20 MG CPDR TAKE 1 CAPSULE BY MOUTH DAILY 90 Cap 1 01/07/2018 Active Secukinumab (COSENTYX SENSOREADY PEN) 150 MG/ML SOAJIndications:PSA (psoriatic arthritis) ([facility]) Inject 150mg at week 0,1,2,3 and 4 5 Pre-filled Pen Syringe Dosing Unit 0 01/13/2018 Active Secukinumab (COSENTYX SENSOREADY PEN) 150 MG/ML SOAJIndications:PSA (psoriatic arthritis) ([facility]) Inject 1 mL under the skin every 4 weeks. 1 Pre-filled Pen Syringe Dosing Unit 5 01/13/2018 Active as of this encounter Active Problems Problem Noted Date Body mass index (BMI) of 45.0 to 49.9 in adult ([facility]) 03/11/2017 Overview: Per Obesity protocol #1 Hyperlipidemia 09/17/2014 GERD (gastroesophageal reflux disease) 0 09/17/2014 Hypertension 09/17/2014 Psoriatic arthritis ([facility]) 09/17/2014 Overview: On Remicade 600 mg every 6 weeks--remicade discontinued due to persistent transaminitis; on Otezla. Diabetes mellitus ([facility]) 09/17/2014 Diabetic neuropathy ([facility]) 09/17/2014 High risk medication use [...] as of this encounter Progress Notes * Brinda Chester, LTAC, located [facility] - 01/16/2018 12:29 PM EDT Medication Therapy Management Specialty Pharmacy Assessment Initial Note Name: Sarwat Campbell Patient is a 72 year old male presently on a medication regimen of cosentyx for psa. After providing patient with a thorough explanation and introduction to program, patient agrees to program/counseling. Indication for treatment:: psa. Indication confirmed with patient? yes. Date of diagnosis: approximately 1979. Drug allergies: yes: codeine. Current medication regimen for above noted indication: cosentyx Formulation: pen Date of initiation of present therapy: approximately 01/17. Is this a new therapy? yes Stop date for present therapy: not applicable at this time. Dosage/Administration: Is patient aware of correct dose, timing, formulation, and frequency of administration? yes Assessment of education: thorough understanding. Education provided today: yes; verbal and literature distributed. Is patient aware of what to do if dose missed? yes. Assessment of education: thorough understanding. Education provided today: yes; verbal and literature distributed. If injectable medication, has physician coordinated patient training on proper administration? YES. Assessment of education: thorough understanding. Education provided today: yes; verbal and literature distributed. If injectable medication, does patient request to be connected with personnel able to provide on-site training? yes; connected. If injectable medication, does patient want information on proper administration? yes; literature distributed. Side effects: Has physician reviewed with patient the common side effects associated with above noted medication?yes. Can patient list any of the common side effects of this medication? yes. Assessment of education: thorough understanding. Education provided today: yes; verbal and literature distributed. Has physician reviewed with patient the serious side effects associated with cosentyx and when to contact him/her? yes. Can patient list any of the serious side effects that warrant follow-up by physician? yes. Assessment of education: thorough understanding. Education provided today: yes; verbal and literature distributed. Precautions: Has physician reviewed with patient safety precautions prior to initiating medication? yes. Can patient list any of the safety precautions? yes. Assessment of education: thorough understanding. Education provided today: yes; verbal and literature distributed. Contraindications: Has physician discussed with patient contraindications or things to absolutely avoid while on cosentyx? not applicable. Assessment of education: basic understanding. Education provided today: yes; literature distributed. Drug Interactions: Has physician reviewed with patient which medications have the potential to interact with cosentyx?yes. Assessment of education: thorough understanding. Education provided today: yes; verbal and literature distributed. Storage: Has physician reviewed with patient proper storage of cosentyx? yes. Can patient explain proper storage of cosentyx? yes. Assessment of education: thorough understanding. Education provided today: yes; verbal and literature distributed. Is patient aware of how to properly dispose of cosentyx? yes. Assessment of education: thorough understanding. Education provided today: yes; verbal and literature distributed. Concomitant Medication(s): Current prescription medications being used for above noted indication: cosentyx Current prescription medications for other indications: medlist updated in EHR OTC medications/herbal remedies: medlist updated in EHR Therapies previously tried for above noted indication: otezla; discontinued due to: Inefficacy Impairment: Number of work days missed in last 3 months due to above noted condition: 0. Number of days less productive in last 3 months due to above noted condition: Daily. Medication Shipment Information: Prior authorization date: unknown Discussed delivery procedure? yes; patient verbalized understanding Discussed refill procedure? yes; patient verbalized understanding Discussed copay of prescription? yes; patient verbalized understanding Discussed payment options? yes; patient verbalized understanding Shipment date: 01/16 Patient advised signature required upon receipt of shipment? not applicable Medication to be shipped to: [address] [place] [address] Patient gave clinic permission to discuss care with family member/caregiver: no Miscellaneous Clinic Notes: not applicable Brinda Chester [facility] Clinical Pharmacist 01/16/2018, 12:29 PM in this encounter Plan of Treatment Upcoming Encounters Date Type Specialty Care Team Description 03/31/2018 Office Visit Rheumatology Nadeen Steiner MD [address] [place] [address] [phone] Health Maintenance Due Date Last Done Comments Yearly B-12 1945 DIABETES-EYE EXAM 1961 DIABETES-FOOT EXAM 1961 DIABETES-HGBA1C EVERY 6 MONTHS 1961 DIABETES-LDL EVERY 12 MONTHS 1961 DTaP,Tdap,and Td Vaccines [...]
--- OUTSIDE RECORDS SUMMARY | 2023-02-05 23:44 | External Medical Summary | Summary of Care ---
Author Name Unknown Organization [place] [address] Phone Care Team Providers Care Border Machine Operator Name Role Phone Nimo Stewart MD Primary Care Provider [phone] Reason for Visit * Reason Comments MEDICATION REFILL Encounter Details Date Type Department Care Team Description 12/25/2017 Pharmacy [facility] 25 [facility], [address] [place] [address] [id number] Medication, [facility] Refill, [facility] [address] [address] Encounter for medication refill* Allergies [...] DAILY 90 Cap 1 07/05/2017 Active PredniSONE (DELTASONE) 10 MG TabletIndications:Pso riatic arthritis (HCC) half tab daily 100 Tab 3 10/10/2017 Active traMADol (ULTRAM) 50 MG TabletIndications:Pso riatic arthritis (HCC),Acute pain of both shoulders Take 2 Tabs by mouth every 6 hours as needed for Pain. 240 Tab 3 10/25/2017 Active as of this encounter Active Problems Problem Noted Date Body mass index (BMI) of 45.0 to 49.9 in adult ([facility]) 03/11/2017 Overview: Per Obesity protocol #1 Hyperlipidemia 09/17/2014 GERD (gastroesophageal reflux disease) 0 09/17/2014 Hypertension 09/17/2014 Psoriatic arthritis ([facility]) 09/17/2014 Overview: On Remicade 600 mg every 6 weeks--remicade discontinued due to persistent transaminitis; on Otezla. Diabetes mellitus ([facility]) 09/17/2014 Diabetic neuropathy ([facility]) 09/17/2014 High risk medication use 09/17/2014 [...] as of this encounter Progress Notes * Elayne Hebert, LIDYA - 01/01/2018 4:40 PM EDT OTEZLA REFILL LIST SPOKE TO HINA AND HIS TOOK HIM OFF OF OTEZLA IT IS NOT WORKING, HE PRESCRIBED TALTZ BUT [facility] DENIED IT SO THEY ARE WAITING TO SEE WHAT HE CAN GET Elayne Hebert Day Spa Manager [facility] 01/01/2018,4:48 PM in this encounter Plan of Treatment Upcoming Encounters Date Type Specialty Care Team Description 03/12/2018 Pharmacy Pharmacy Medication, [facility], [address] [place] [address] 03/31/2018 Office Visit Rheumatology Nadeen Steiner MD [address] [place] [address] [phone] Health Maintenance Due Date Last Done Comments [...]
--- OUTSIDE RECORDS SUMMARY | 2023-02-05 23:44 | External Medical Summary | Summary of Care ---
Author Name Unknown Organization [place] [address] Phone Care Team Providers Care Assembler Bicycle Name Role Phone Unavailable Primary Care Provider Unavailabl e Reason for Visit * Reason Comments MEDICATION REFILL Encounter Details Date Type Department Care Team Description 12/03/2017 Pharmacy [facility] 25 [facility], [address] [place] [address] Medication, [facility] Refill, [facility] [address] [facility] [address] [place] [address] Encounter for medication refill* Allergies [...] PredniSONE (MICHELLE) 5 MG TBECIndications:Psori atic arthritis ([facility]) 1 tab at 8 pm daily 30 Tab 5 07/22/2017 Active PredniSONE (DELTASONE) 10 MG TabletIndications:Pso riatic arthritis ([facility]) half tab daily 100 Tab 3 10/10/2017 Active Apremilast (OTEZLA) 30 MG TABSIndications:PSA (psoriatic arthritis) ([facility]) Take 1 Tab by mouth 2 times a day. 60 Tab 5 10/10/2017 Active traMADol (ULTRAM) 50 MG TabletIndications:Pso riatic arthritis ([facility]),Acute pain of both shoulders Take 2 Tabs by mouth every 6 hours as needed for Pain. 240 Tab 3 10/25/2017 Active as of this encounter Active Problems Problem Noted Date Body mass index (BMI) of 45.0 to 49.9 in adult ([facility]) 03/11/2017 Overview: Per Obesity protocol #1 Hyperlipidemia 09/17/2014 GERD (gastroesophageal reflux disease) 0 09/17/2014 Hypertension 09/17/2014 Psoriatic arthritis ([facility]) 09/17/2014 Overview: On Remicade 600 mg every 6 weeks Diabetes mellitus ([facility]) 09/17/2014 Diabetic neuropathy ([facility]) 09/17/2014 High risk medication use [...] as of this encounter Progress Notes * Felisa Caputo OSA - 12/02/2017 10:22 AM EDT Shipped via [facility] 12/02/17 Felisa Caputo CPhT Vb Developer II [facility] [email or web address] * Anthony Florez OSA - 11/29/2017 2:04 PM EDT [facility] REFILL CALL NOTE Sarwat Campbell [id number] Patient is a 72 year old male [...] outstanding balance?:no Discussed payment options?:no Medication shipped to:[address] [place] [address] Satisfaction survey: na Patient reminded that they [...] Care Team Description 12/03/2017 Pharmacy Pharmacy Medication, [facility] Specialty Refill, [address] [place] [address] Encounter for medication refill* 12/25/2017 Pharmacy Pharmacy Medication, [facility] Specialty Refill, [address] [place] [address] [phone] 12/30/2017 Office Visit Rheumatology Nadeen Steiner MD [address] [place] [address] [phone] 03/12/2018 Pharmacy Pharmacy Medication, [facility], [address] [address] Health Maintenance Due Date Last Done Comments [...]
--- OUTSIDE RECORDS SUMMARY | 2023-02-05 23:44 | External Medical Summary | Summary of Care ---
Author Name Unknown Organization [place] [address] Phone Care Team Providers Care Insurance Sales Representative Name Role Phone Nimo Stewart MD Primary Care Provider [phone] Reason for Visit * Reason Comments Precert Approved Cosentyx Encounter Details Date Type Department Care Team Description 01/07/2018 Telephone Rheumatology, [address] [place] [address] Nadeen Steiner MD [address] [place] [address] Precert Approved (Cosentyx) Allergies Active Allergy Reactions Severity Noted Date [...] PredniSONE (DELTASONE) 10 MG TabletIndications:P soriatic arthritis ([facility]) half tab daily 100 Tab 3 10/10/2017 Active traMADol (ULTRAM) 50 MG TabletIndications:P soriatic arthritis ([facility]),Acute pain of both shoulders Take 2 Tabs by mouth every 6 hours as needed for Pain. 240 Tab 3 10/25/2017 Active atorvaSTATin (LIPITOR) 10 MG Tablet 1 daily 10/04/2017 Active omeprazole (PRILOSEC) 20 MG CPDR TAKE 1 CAPSULE BY MOUTH DAILY 90 Cap 1 01/07/2018 Active Secukinumab (COSENTYX SENSOREADY PEN) 150 MG/ML SOAJIndications:PSA (psoriatic arthritis) ([facility]) Inject 150mg at week 0,1,2,3 and 4 5 Pre-filled Pen Syringe Dosing Unit 0 01/13/2018 Active Secukinumab (COSENTYX SENSOREADY PEN) 150 MG/ML SOAJIndications:PSA (psoriatic arthritis) ([facility]) Inject 1 mL under the skin every 4 weeks. 1 Pre-filled Pen Syringe Dosing Unit 5 01/13/2018 Active as of this encounter Active Problems Problem Noted Date Body mass index (BMI) of 45.0 to 49.9 in adult ([facility]) 03/11/2017 Overview: Per Obesity protocol #1 Hyperlipidemia 09/17/2014 GERD (gastroesophageal reflux disease) 0 09/17/2014 Hypertension 09/17/2014 Psoriatic arthritis ([facility]) 09/17/2014 Overview: On Remicade 600 mg every 6 weeks--remicade discontinued due to persistent transaminitis; on Otezla. Diabetes mellitus ([facility]) 09/17/2014 Diabetic neuropathy ([facility]) 09/17/2014 High risk medication use 09/17/2014 CKD [...] Telephone Encounter - Nadeen Steiner MD - 01/13/2018 9:58 AM EDT Order signed. * Telephone Encounter - Cuca SeguraSHAHZAD - 01/13/2018 9:19 AM EDT [facility] can supply, please sign order * Telephone Encounter - McgheeSilvia, LIDYA - 01/10/2018 12:26 PM EDT Auth obtained, referral entered. * Telephone Encounter - Silvia Mcghee Jessy, LIDYA - 01/09/2018 7:41 AM EDT Faxed PA request and clinical to [facility] * Telephone Encounter - Cuca SeguraSHAHZAD - 01/08/2018 2:50 PM EDT Please auth Cosentyx loading dose 150mg at week 0,1,2,3 and 4, then maintenance dose 150mg every 4 weeks, thx * Telephone Encounter - Nadeen Steiner MD - 01/07/2018 4:34 PM EDT Please initiate prior authorization for Cosentyx with loading dose. Patient had adverse reaction with elevated LFTs on Remicade and interval development of MGUS. Failed treatment with Enbrel; therefore avoiding all TNF inhibitors. Failed treatment with methotrexate and recently Otezla in this encounter Plan of Treatment Upcoming Encounters Date Type Specialty Care Team Description 03/31/2018 Office Visit Rheumatology Nadeen Steiner MD [address] [place] [address] [phone] Health Maintenance Due Date Last Done Comments [...] encounter Visit Diagnoses Diagnosis PSA (psoriatic arthritis) ([facility]) - Primary Psoriatic arthropathy in this encounter
--- OUTSIDE RECORDS SUMMARY | 2023-02-05 23:44 | External Medical Summary | Summary of Care ---
Author Name Unknown Organization [place] [address] Phone Care Team Providers Care Facility Attendant Name Role Phone Nimo Stewart MD Primary Care Provider [phone] Reason for Visit * Reason Comments Rheum Follow Up 3 month return Encounter Details Date Type Department Care Team Description 12/30/2017 Office Visit Rheumatology [place] [id number] [place] [address] Nadeen Steiner MD [address] [place] [address] [phone] Psoriatic arthritis (HCC)*;Encounter for long-term (current) use of high-risk medication;Impingemen t syndrome of both shoulders;MGUS (monoclonal gammopathy of unknown significance) Allergies Active [...] 1 07/05/2017 Active PredniSONE (DELTASONE) 10 MG TabletIndications: Psoriatic arthritis ([facility]) half tab daily 100 Tab 3 10/10/2017 Active traMADol (ULTRAM) 50 MG TabletIndications: Psoriatic arthritis ([facility]),Acute pain of both shoulders Take 2 Tabs by mouth every 6 hours as needed for Pain. 240 Tab 3 10/25/2017 Active atorvaSTATin (LIPITOR) 10 MG Tablet 1 daily 10/04/2017 Active PredniSONE (MICHELLE) 5 MG TBECIndications:Ps oriatic arthritis ([facility]) 1 tab at 8 pm daily 30 Tab 5 07/22/2017 8 Discontinued Apremilast (OTEZLA) 30 MG TABSIndications:PS A (psoriatic arthritis) ([facility]) Take 1 Tab by mouth 2 times a day. 60 Tab 5 10/10/2017 8 Discontinued Hospital, Clinic, or Other Facility Administered Medication Ordered Dose Route Frequency Start Date End Date Status Lidocaine 2 % (PF) inj 20 mgIndications:Impingement syndrome of both shoulders 20 MG IX Once 12/30/2017 8 Ended methylPREDNISolone acetate (DEPO-MEDROL) 40 MG/ML inj 40 mgIndications:Impingement syndrome of both shoulders 40 MG IX Once 12/30/2017 8 Ended methylPREDNISolone acetate (DEPO-MEDROL) 40 MG/ML inj 40 mgIndications:Impingement syndrome of both shoulders 40 MG IX Once 12/30/2017 8 Ended Lidocaine 2 % (PF) inj 20 mgIndications:Impingement syndrome of both shoulders 20 MG IX Once 12/30/2017 8 Ended as of this encounter Active Problems [...] to persistent transaminitis; on Otezla. Diabetes mellitus (HCC) 09/17/2014 Diabetic neuropathy (HCC) 09/17/2014 High risk medication use 09/17/2014 CKD [...] Not on file as of this encounter Last Filed Vital Signs Vital Sign Reading Time Taken Blood Pressure 144/70 12/30/2017 9:13 AM EDT Pulse - - Temperature 37.1 C (98.7 F) 12/30/2017 9 :13 AM EDT Respiratory Rate - - Oxygen Saturation - - Inhaled Oxygen Concentration - - Weight 135.6 kg (299 lb) 12/30/2017 9:1 3 AM EDT Height - - Body Mass Index 48.26 12/30/2017 9:13 AM EDT in this encounter Instructions * Patient Instructions - Nadeen Steiner MD - 12/30/2017 9:54 AM EDT 1. Increase prednisone to 10 mg daily. 2. Stop Otezla. 3. Prior authorization for Saturnino has been sent. 4. Continue your pain medicine. 5. Labs before the next visit in this encounter Progress Notes * Nadeen Steiner MD - 12/30/2017 9:13 AM EDT Formatting of this note may be different from the original. Reason for visit: Follow-up for ongoing evaluation and treatment of psoriatic arthritis. Last Office Visit: 10/10/2017. Inflammatory disease: Diagnosis date: Past treatments: steroids, methotrexate, Enbrel, Remicade (1999-August 2016) discontinued due topersistent transaminitis and diagnosis of MGUS Current regimen: Otezla (03/26-), prednisone 5 mg daily, Michelle History of present illness: Since the time of his last evaluation, he notes that his arms, shoulders, and hands are bothersome. He rates his pain an 8/10. Hands became swollen on Saturday. He has stopped Michelle and is taking 5 mg of prednisone at bedtime. Most recent labs from 12/18/2017 showed no evidence of medication toxicity. He denies any interval infections, hospitalizations, or surgeries. 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 Family history: Family history is unchanged. Social history: Social History Substance Use Topics Smoking status: Never Smoker Smokeless tobacco: Never Used Alcohol use Yes Comment: 1-2 drinks/month Allergies: Review of patient's allergies indicates: Allergen Reactions Codeine Review of systems: Review of Systems was asked and other than the issues noted in the History of present illness, no other significant symptoms are present. Current Outpatient Prescriptions Medication Sig Dispense Refill atorvaSTATin (LIPITOR) 10 MG Tablet 1 daily traMADol (ULTRAM) 50 MG Tablet Take 2 Tabs by mouth every 6 hours as needed for Pain. 240 Tab 3 Apremilast (OTEZLA) 30 MG TABS Take 1 Tab by mouth 2 times a day. 60 Tab 5 PredniSONE (DELTASONE) 10 MG Tablet half tab daily 100 Tab 3 omeprazole (PRILOSEC) 20 MG CPDR TAKE 1 CAPSULE BY MOUTH DAILY 90 Cap 1 triamcinolone acetonide (ARISTOCORT) 0.1 % cream As [...] Capsule 1 daily Examination: Vital signs: BP 144/70 | Temp (Src) 98.7 (Tympanic) | Wt 299 lbs (135.626kg) | BMI 48.26 kg/m | BSA 2.51 m General: Obese man who appears well and is no acute distress. Skin: psoriatic patches on elbows Chest: Clear to ascultation bilaterally with no wheezing, rales, or rhonchi. Heart: Rate regular and rhythm with normal S1 and S2. No murmurs, rubs or gallops. Extremities: No edema. Normal pulses. Musculoskeletal: Swollen joints: all MCPs and PIPs Tender joints: shoulders, all MCPs Assessment: ICD-10-CM 1. Psoriatic arthritis (HCC) L40.50 2. Encounter for long-term (current) use of high-risk medication Z79.899 3. Impingement syndrome of both shoulders M75.41 M75.42 4. MGUS (monoclonal gammopathy of unknown significance) D47.2 Mr. Campbell returns today for management of psoriatic arthritis. His disease is more active despite Otezla and prednisone 5 mg daily. Plan: 1. Discussed the above in detail with the patient and his . All questions were answered. 2. Procedure: Patient identified, procedure verified, site verified. Risks/benefits discussed. Informed consent obtained. Final verification of procedure. Timeout performed. Application of topical anesthetic and sterile preparation. injection site: bilateral shoulder injected with Depomedrol 40 mg m ixed with 1 ml of 2% lidocaine. Patient tolerated well, no complications. Post procedure instructions provided. 3. Will increase prednisone to 10 mg daily. 4. Will stop Otezla and try Taltz. Handout on Taltz provided and prior authorization initiated. 5. New standing lab orders provided. 6. He was encouraged to contact me with any questions or concerns. 7. Follow Up: Return in about 3 months (around 04/01/2018). Nadeen Steiner MD PhD Rheumatology CC: Nimo Stewart MD in this encounter Nursing Notes * Heather Ogden LPN - 12/30/2017 9:15 AM EDT Formatting of this note may be different from the original. Chief Complaint Patient presents with Rheum Follow Up 3 month return in this encounter Plan of Treatment Upcoming Encounters Date Type Specialty Care Team Description 03/12/2018 Pharmacy [facility]acy Medication[facility] [address] [address] [phone] 03/31/2018 Office Visit Rheumatology Nadeen Steiner MD [facility] [place] [address] [phone] Scheduled Tests Name Priority Associated Diagnoses Order S chedule CBC/DIFF Routine Psoriatic arthritis (HCC) Encounter for long-term (current) use of high-risk medication Ordered: 12/30/2017 HEP FUNCTION PANEL Routine Psoriatic arthritis (HCC) Encounter for long-term (current) use of high-risk medication Ordered: 12/30/2017 CREATININE SERUM Routine Psoriatic arthritis (HCC) Encounter for long-term (current) use of high-risk medication Ordered: 12/30/2017 ARTHROCENT ASP &/OR INJ MAJOR JX/BURSA W/O US Routine Impingement syndrome of both shoulders Ordered: 12/30/2017 ARTHROCENT ASP &/OR INJ MAJOR JX/BURSA W/O US Routine Impingement syndrome of both shoulders Ordered: 12/30/2017 Health Maintenance Due Date Last Done Comments [...] encounter Visit Diagnoses Diagnosis Psoriatic arthritis (HCC) - Primary Psoriatic arthropathy Encounter for long-term (cur rent) use of high-risk medication Encounter for long-term (current) use of other medications Impingement syndrome of both shoulders Other affections of shoulder region, not elsewhere classified MGUS (monoclonal gammopathy of unknown significance) Monoclonal paraproteinemia in this encounter Administered Medications Inactive Administered Medications - up to 3 most recent administrations Medication Order MAR Action Action Date Dose Rate Site Lidocaine 2 % (PF) inj 20 mg 20 mg (1 mL), Intra-Articular, ONCE, Sat12/30/17 at 1115 Given 12/30/2017 09:32 EDT 20 mg Shoul frank Right Lidocaine 2 % (PF) inj 20 mg 20 mg (1 mL), Intra-Articular, ONCE, Sat12/30/17 at 1130 Given 12/30/2017 09:30 EDT 20 mg Shoul frank Left methylPREDNISolone acetate (DEPO-MEDROL) 40 MG/ML inj 40 mg 40 mg, Intra-Articular, ONCE, Sat12/30/17 at 1115 Given 12/30/2017 09:32 EDT 40 mg Shoulder Right methylPREDNISolone acetate (DEPO-MEDROL) 40 MG/ML inj 40 mg 40 mg, Intra-Articular, ONCE, Sat12/30/17 at 1130 Given 12/30/2017 09:30 EDT 40 mg Shoulder Left in this encounter"
--- OUTSIDE RECORDS SUMMARY | 2023-02-05 23:44 | External Medical Summary | Summary of Care ---
Author Name Unknown Organization [place] [address] Phone Care Team Providers Care Bilingual Customer Service Specialist Name Role Phone Nimo Stewart MD Primary Care Provider [phone] Reason for Visit * Reason Comments Precert Approved Cosentyx Encounter Details Date Type Department Care Team Description 01/14/2018 Telephone Rheumatology [place] [id number] [place] [id number] Nadeen Steiner MD [address] [place] [address] Precert Approved (Cosentyx ) Allergies Active [...] PredniSONE (DELTASONE) 10 MG TabletIndications:P soriatic arthritis ([facility]) half tab daily 100 Tab 3 10/10/2017 Active traMADol (ULTRAM) 50 MG TabletIndications:P soriatic arthritis ([facility]),Acute pain of both shoulders Take 2 Tabs by mouth every 6 hours as needed for Pain. 240 Tab 3 10/25/2017 Active atorvaSTATin (LIPITOR) 10 MG Tablet 1 daily 10/04/2017 Active omeprazole (PRILOSEC) 20 MG CPDR TAKE 1 CAPSULE BY MOUTH DAILY 90 Cap 1 01/07/2018 Active Secukinumab (COSENTYX SENSOREADY PEN) 150 MG/ML SOAJIndications:PSA (psoriatic arthritis) ([facility]) Inject 150mg at week 0,1,2,3 and 4 5 Pre-filled Pen Syringe Dosing Unit 0 01/13/2018 Active Secukinumab (COSENTYX SENSOREADY PEN) 150 MG/ML SOAJIndications:PSA (psoriatic arthritis) ([facility]) Inject 1 mL under the [...] Telephone Encounter - Cuca Segura LPN - 01/16/2018 2:23 PM EDT Loading dose approved now * Telephone Encounter - Silvia Mcghee, LIDYA - 01/16/2018 9:14 AM EDT Auth obtained, referral entered. * Telephone Encounter - Silvia Mcghee, LIDYA - 01/15/2018 7:56 AM EDT [facility] * Telephone Encounter - Cuca SeguraSHAHZAD - 01/14/2018 1:57 PM EDT Please Auth loading dose of 150mg at week 0,1,2, and 3. Per pharmacy Auth that was obtained was forthe maintenance dose only. * Telephone Encounter - Melissa Graham CPhT - 01/14/2018 12:26 PM EDT enzo needs a prior auth for Cosentyx loading dose under his [employer] coverage ID [id number] Melissa Graham Power Plant Technician [facility] 01/14/2018,12:28 PM in this encounter Plan of Treatment Upcoming Encounters Date Type Specialty Care Team Description 02/07/2018 Pharmacy Pharmacy Medication, [facility], [address] [address] [phone] 03/31/2018 Office Visit Rheumatology Nadeen Steiner MD [address] [facility], [place] [address] 05/02/2018 Pharmacy Pharmacy Medication, [facility], [address] [address] [phone] Health Maintenance Due Date Last Done Comments [...]
--- OUTSIDE RECORDS SUMMARY | 2023-02-05 23:44 | External Medical Summary | Summary of Care ---
Author Name Unknown Organization [place] [address] Phone Care Team Providers Care Therapy Coordinator Name Role Phone Nimo Stewart MD Primary Care Provider [phone] Reason for Visit * Reason Comments Precert Denied Saturnino FYI Encounter Details Date Type Department Care Team Description 12/30/2017 Telephone Rheumatology [place] [id number] [employer] [place] [address] Nadeen Steiner MD [address] [place] [address] Precert Denied ( Saturnino); FYI Allergies [...] PredniSONE (DELTASONE) 10 MG TabletIndications: Psoriatic arthritis ([facility]) half tab daily 100 Tab 3 10/10/2017 Active traMADol (ULTRAM) 50 MG TabletIndications: Psoriatic arthritis ([facility]),Acute pain of both shoulders Take 2 Tabs [...] (BMI) of 45.0 to 49.9 in adult ([facility]) 03/11/2017 Overview: Per Obesity protocol #1 Hyperlipidemia 09/17/2014 GERD (gastroesophageal reflux disease) 0 09/17/2014 Hypertension 09/17/2014 Psoriatic arthritis ([facility]) 09/17/2014 Overview: On Remicade 600 mg every 6 weeks--remicade discontinued due to persistent transaminitis; on Otezla. Diabetes mellitus ([facility]) 09/17/2014 Diabetic neuropathy ([facility]) 09/17/2014 High risk medication use 09/17/2014 CKD [...] OSA - 01/07/2018 12:42 PM EDT [facility]. He forward the [...] received a letter in the mail from [facility] that the prior auth was denied for Taltz. The letter stated pt was to try and fail Humira. Please advise pt at [phone]. Pt's stated a detailed message can be left on the machine. Thank you, Ally Ibarra [facility] 01/06/2018, 4:52 PM * Telephone Encounter - Roselia Devine OSA - 12/31/2017 1:48 PM EDT Faxed [facility] request [facility] clinical [facility] * Telephone Encounter - Nadeen Steiner [...] 02/07/2018 Pharmacy Pharmacy Medication, [facility], [address] [place] [address] 03/31/2018 Office Visit Rheumatology Nadeen Steiner MD [address] [place] [address] [phone] 05/02/2018 Pharmacy Pharmacy Medication, [facility], [address] [place] [address] [phone] Health Maintenance Due Date Last Done Comments [...]
[2023-02-05] MEDS ORDERED: Nursing to Pharmacy Communication SCH (23:45)
--- OUTSIDE RECORDS SUMMARY | 2023-02-05 23:45 | External Medical Summary | Summary of Care ---
Author Name Unknown Organization [place] [address] Phone Care Team Providers Care Book Sorter Name Role Phone Unavailable Primary Care Provider Unavailabl e Reason for Visit * Reason Comments MEDICATION REFILL Encounter Details Date Type Department Care Team Description 08/13/2017 Pharmacy [facility] [address] [facility], [address]th [place] [address] Medication, [facility], [facility] [address] [facility] [address] [place] [address] Encounter for medication refill* Allergies [...] Tablet 1 tab twice daily 07/13/2016 Active traMADol (ULTRAM) 50 MG TabletIndications:Psor iatic arthritis (HCC),Generalized osteoarthritis Take 1 Tab by mouth every 6 hours as needed for Pain. 120 Tab 3 03/11/2017 Active metFORMIN (GLUCOPHAGE) 500 MG Tablet 2 tabs daily 03/07/2017 Active clobetasol propionate (TEMOVATE) 0.05 % ointment As needed 01/30/2017 Active Apremilast (OTEZLA) 30 MG TABSIndications:PSA (psoriatic arthritis) ([facility]) Take 1 Tab by mouth 2 times a day. 60 Tab 5 03/25/2017 Active triamcinolone acetonide (ARISTOCORT) 0.1 % cream As directed 04/02/2017 Active omeprazole (PRILOSEC) 20 MG CPDR TAKE 1 CAPSULE BY MOUTH DAILY 90 Cap 1 07/05/2017 Active PredniSONE (MICHELLE) 5 MG TBECIndications:Psoria tic arthritis ([facility]) 1 tab at 8 pm daily 30 Tab 5 07/22/2017 Active PredniSONE (DELTASONE) 10 MG TabletIndications:Psor iatic arthritis ([facility]) half tab daily 100 Tab 2 07/22/2017 Active as of this encounter Active Problems Problem Noted Date Body mass index (BMI) of 45.0 to 49.9 in adult ([facility]) 03/11/2017 Overview: Per Obesity protocol #1 Hyperlipidemia 09/17/2014 GERD (gastroesophageal reflux disease) 0 09/17/2014 Hypertension 09/17/2014 Psoriatic arthritis ([facility]) 09/17/2014 Overview: On Remicade 600 mg every 6 weeks Diabetes mellitus ([facility]) 09/17/2014 Diabetic neuropathy ([facility]) 09/17/2014 High risk medication use [...] Progress Notes * Arlette Dodson CPhT - 08/13/2017 2:21 PM EST [facility] REFILL CALL NOTE Hina Campbell [address] Patient is a 72 year old male on the schedule today for a telephone call concerning their refill ofOTEZLA Spoke to HINA Does patient have any questions regarding medication(s)? [...] left on present supply? yes Shipment date: 08/19/2017 Delivery method:UPS Discussed copay of prescription?:yes; patient verbalized understanding Discussed outstanding balance?:yes; patient verbalized understanding Discussed payment options?:yes; patient verbalized understanding Medication shipped to [address] [place] [address] Satisfaction survey: NA Patient reminded that they will be receiving a telephone call from pharmacy to schedule their next refill when they have approximately 1 week of medication remaining. In the interim, patient advised to call pharmacy should they have any questions or concerns. Arlette Dodson CPhT 08/13/2017, 2:22 PM in this encounter Plan of Treatment Upcoming Encounters Date Type Specialty Care Team Description 10/21/2017 Office [facility] [facility] [address] [phone] 03/12/2018 Pharmacy Pharmacy Medication, [facility], [address] [place] [address] Health Maintenance Due Date Last Done Comments Yearly B-12 1943 DIABETES-EYE EXAM 1961 DIABETES-FOOT EXAM 1961 DIABETES-HGBA1C EVERY 6 MONTHS 1961 DIABETES-LDL EVERY 12 MONTHS 1961 DIABETES-URINE MICROALBUMIN EVERY 12 MONTHS 1961 DTaP,Tdap,and Td Vaccines (1 - Tdap) 1962 PNEUMOCOCCAL ADULT 65 YRS AND OVER (1 of 2 - PCV13) COLONOSCOPY-EVERY 5 YRS AGES 18-100 01/04/201401/04 *ADVANCE DIRECTIVE NOT ON FILE 09/23/2014 *BASELINE EKG FOR HTN 09/23/2014 *DEPRESSION SCREENING, ANNUAL FOR PTS 18 AND OVER 09/08 *URINE PROTEIN ONCE FOR HTN-DIPSTICK ACCEPTABLE 2014 Influenza Vaccine (FLU shot) (#1) 2017 as of this encounter Implants Not on fileas of this encounter Visit Diagnoses Diagnosis Encounter for medication ref ill - Primary Issue of repeat prescriptions in this encounter Insurance Payer Benefit Plan / Group Subscriber ID Type Phone Address MEDICARE REPLACEMENT [employer] PPO [id number] Medicar e as of this encounter
--- OUTSIDE RECORDS SUMMARY | 2023-02-05 23:45 | External Medical Summary | Summary of Care ---
Author Name Unknown Organization [place] [address] Phone Care Team Providers Care Monkey Trainer Name Role Phone Nimo Stewart MD Primary Care Provider [phone] Reason for Visit * Reason Comments MEDICATION REFILL Encounter Details Date Type Department Care Team Description 09/23/2017 Pharmacy [facility] [address] [facility], 4th Floor [place] [address] Kolby Hilton, [facility] [address] [place] [address] Encounter for medication refill* Allergies Active Allergy [...] Apremilast (OTEZLA) 30 MG TABSIndications:PSA (psoriatic arthritis) (HCC) Take 1 Tab by mouth 2 times a day. 60 Tab 5 03/25/2017 Active triamcinolone acetonide (ARISTOCORT) 0.1 % cream As directed 04/02/2017 Active omeprazole (PRILOSEC) 20 MG CPDR TAKE 1 CAPSULE BY MOUTH DAILY 90 Cap 1 07/05/2017 Active PredniSONE (MICHELLE) 5 MG TBECIndications:Psori atic arthritis ([facility]) 1 tab at 8 pm daily 30 Tab 5 07/22/2017 Active PredniSONE (DELTASONE) 10 MG TabletIndications:Pso riatic arthritis ([facility]) half tab daily 100 Tab 2 07/22/2017 Active traMADol (ULTRAM) 50 MG TabletIndications:Pso riatic arthritis ([facility]),Acute pain of both shoulders Take 2 Tabs by mouth every 6 hours as needed for Pain. 240 Tab 3 08/29/2017 Active as of this encounter Active Problems Problem Noted Date Body mass index (BMI) of 45.0 to 49.9 in adult ([facility]) 03/11/2017 Overview: Per Obesity protocol #1 Hyperlipidemia 09/17/2014 GERD (gastroesophageal reflux disease) 0 09/17/2014 Hypertension 09/17/2014 Psoriatic arthritis ([facility]) 09/17/2014 Overview: On Remicade 600 mg every 6 weeks Diabetes mellitus ([facility]) 09/17/2014 Diabetic neuropathy ([facility]) 09/17/2014 High risk medication use [...] as of this encounter Progress Notes * Ranjit Mayes, LIDYA - 09/25/2017 4:08 PM EDT Sent via [facility] 09/26/2017 Ranjit Mayes [employer] [facility] * Kolby Hilton, [facility] - 09/23/2017 4:21 PM EDT [facility] REFILL CALL NOTE Sarwat Campbell [address] Patient is a 72 year old male on the schedule today for a telephone call concerning their refill ofOTEZLA. Spoke to spouse; consent on file Does patient have any questions regarding medication(s)? no Is patient having difficulty taking medication(s) as prescribed? no Does patient have any concerns or complaints regarding possible side effects of medication(s)? no How much medication does patient have left in present supply? 7 day supply Would patient like to schedule refill of medication today which will be shipped when patient has approximately 1 week left on present supply? yes Shipment date: 09/26/2017 Delivery method:UPS Discussed copay of prescription?:yes; patient verbalized understanding Discussed outstanding balance?:no Discussed payment options?:yes; patient verbalized understanding Medication shipped to:[address] [place] [address] Satisfaction survey: WILL SEND FOR PT ASSISTANCE Patient reminded that they will be receiving a telephone call from pharmacy to schedule their next refill when they have approximately 1 week of medication remaining. In the interim, patient advised to call pharmacy should they have any questions or concerns. Kolby Hilton, [facility] 09/23/2017, 4:21 PM in this encounter Plan of Treatment Upcoming Encounters Date Type Specialty Care Team Description 10/02/2017 Pharmacy Pharmacy Assistance, [facility], [address] [address] 10/21/2017 Office Visit Rheumatology Nadeen Steiner MD [address] [place] [address] [phone] 10/21/2017 Pharmacy Pharmacy Medication, [facility] Refill, [address] [address] 03/12/2018 Pharmacy Pharmacy Medication, [facility], [address] [address] Health Maintenance Due Date Last Done Comments [...] Type Phone Address MEDICARE REPLACEMENT [employer] PPO [id number] Medicar e as of this encounter
--- OUTSIDE RECORDS SUMMARY | 2023-02-05 23:45 | External Medical Summary | Summary of Care ---
Author Name Unknown Organization [place] [address] Phone Care Team Providers Care Machine Bander And Cellophaner Helper Name Role Phone Nimo Stewart MD Primary Care Provider [phone] Reason for Visit * Reason Comments MEDICATION REFILL Encounter Details Date Type Department Care Team Description 09/24/2017 Pharmacy [facility] 25 [facility], [address] [place] [id number] Assistance, [facility], [facility] [address] [address] Encounter for medication refill* Allergies [...] PredniSONE (MICHELLE) 5 MG TBECIndications:Psori atic arthritis (HCC) 1 tab at 8 pm daily 30 Tab 5 07/22/2017 Active PredniSONE (DELTASONE) 10 MG TabletIndications:Pso riatic arthritis ([facility]) half tab daily 100 Tab 2 07/22/2017 Active traMADol (ULTRAM) 50 MG TabletIndications:Pso riatic arthritis ([facility]),Acute pain of both shoulders Take 2 Tabs by mouth every 6 hours as needed for Pain. 240 Tab 3 08/29/2017 Active as of this encounter Active Problems Problem Noted Date Body mass index (BMI) of 45.0 to 49.9 in adult ([facility]) 03/11/2017 Overview: Per Obesity protocol #1 Hyperlipidemia 09/17/2014 GERD (gastroesophageal reflux disease) 0 09/17/2014 Hypertension 09/17/2014 Psoriatic arthritis ([facility]) 09/17/2014 Overview: On Remicade 600 mg every 6 weeks Diabetes mellitus ([facility]) 09/17/2014 Diabetic neuropathy ([facility]) 09/17/2014 High risk medication use 09/17/2014 CKD [...] Notes * Destini Leavitt V, LIDYA - 09/24/2017 12:33 PM EDT Received referral from pharmacist, patient seeking co-pay assistance for OTEZLA. Diagnosis:Psoriatic Arthritis Patient is now in the [facility] of insurance and co-pay od RX has increased. Patient will pay for this month but would like to be enrolled for FREE DRUG program. Will mail application to patient andcontinue to look for assistance. Destini Leavitt Pharmacy Director Of Market Intelligence [facility] 09/24/2017,12:36 PM in this encounter Plan of Treatment Upcoming Encounters Date Type Specialty Care Team Description 10/02/2017 Pharmacy Pharmacy Assistance, [facility], [address] [place] [address] [phone] 10/21/2017 Office Visit Rheumatology Nadeen Steiner MD [address] [place] [address] [phone] 10/21/2017 Pharmacy Pharmacy Medication, [facility] Refill, [address] [place] [address] [phone] 03/12/2018 Pharmacy Pharmacy Medication, [facility], [address] [place] [address] [phone] Health Maintenance Due Date Last Done Comments [...] Type Phone Address MEDICARE REPLACEMENT [employer] PPO [id number] Medicar e as of this encounter
--- OUTSIDE RECORDS SUMMARY | 2023-02-05 23:45 | External Medical Summary | Summary of Care ---
Author Name Unknown Organization [place] [address] Phone Care Team Providers Care Integrative Medicine Physician Name Role Phone Nimo Stewart MD Primary Care Provider [phone] Reason for Visit * Reason Comments Rheum Follow Up Pt returns for Left shoulder pain Encounter Details Date Type Department Care Team Description 10/10/2017 Office Visit Rheumatology [place] [id number] [employer] [place] [address] Nadeen Steiner MD [address] [place] [address] [phone] Impingement syndrome of shoulder region, left*;Psoriatic arthritis (HCC);Encounter for long-term (current) use of high-risk medication [...] needed 01/30/2017 Active Apremilast (OTEZLA) 30 MG TABSIndications:PS A (psoriatic arthritis) ([facility]) Take 1 Tab by mouth 2 times a day. 60 Tab 5 03/25/2017 Active triamcinolone acetonide (ARISTOCORT) 0.1 % cream As directed 04/02/2017 Active omeprazole (PRILOSEC) 20 MG CPDR TAKE 1 CAPSULE BY MOUTH DAILY 90 Cap 1 07/05/2017 Active PredniSONE (MICHELLE) 5 MG TBECIndications:Ps oriatic arthritis ([facility]) 1 tab at 8 pm daily 30 Tab 5 07/22/2017 Active traMADol (ULTRAM) 50 MG TabletIndications: Psoriatic arthritis ([facility]),Acute pain of both shoulders Take 2 Tabs by mouth every 6 hours as needed for Pain. 240 Tab 3 08/29/2017 Active PredniSONE (DELTASONE) 10 MG TabletIndications: Psoriatic arthritis ([facility]) half tab daily 100 Tab 3 10/10/2017 Active PredniSONE (DELTASONE) 10 MG TabletIndications: Psoriatic arthritis ([facility]) half tab daily 100 Tab 2 07/22/2017 8 Discontinued PredniSONE (MICHELLE) 5 MG TBEC Take by mouth. 1 daily 8 Discontinued Hospital, Clinic, or Other Facility Administered Medication Ordered Dose Route Frequency Start Date End Date Status Lidocaine 2 % (PF) inj 20 mgIndications:Impingement syndrome of shoulder region, left 20 MG IX Once 10/10/2017 10/10/2017 Ended methylPREDNISolone acetate (DEPO-MEDROL) 40 MG/ML inj 40 mgIndications:Impingement syndrome of shoulder region, left 40 MG IX Once 10/10/2017 10/10/2017 Ended as of this encounter Active Problems Problem Noted Date Body mass index (BMI) of 45.0 to 49.9 in adult ([facility]) 03/11/2017 Overview: Per Obesity protocol #1 Hyperlipidemia 09/17/2014 GERD (gastroesophageal reflux disease) 0 09/17/2014 Hypertension 09/17/2014 Psoriatic arthritis ([facility]) 09/17/2014 Overview: On Remicade 600 mg every 6 weeks Diabetes mellitus ([facility]) 09/17/2014 Diabetic neuropathy ([facility]) 09/17/2014 High risk medication use [...] Vital Sign Reading Time Taken Blood Pressure 132/74 10/10/2017 7:59 AM EDT Pulse - - Temperature 36.6 C (97.8 F) 10/10/2017 7 :59 AM EDT Respiratory Rate - - Oxygen Saturation - - Inhaled Oxygen Concentration - - Weight 133.8 kg (295 lb) 10/10/2017 7:5 9 AM EDT Height - - Body Mass Index 47.61 10/10/2017 7:59 AM EDT in this encounter Progress Notes * Nadeen Steiner MD - 10/10/2017 8:02 AM EDT Formatting of this note may be different from the original. REASON FOR VISIT: Left shoulder pain HPI: Mr. Campbell is a 72 year old male who returns to clinic today for left shoulder pain. He finds benefit from intra-articular corticosteroid injections in addition to his medication regimen. His psoriatic arthritis continues to respond to Otezla and prednisone. His notes that he has been complaining of swelling of his legs that occur towards the end of the day. He is taking Michelle 5 mg at8 pm and prednisone 5 mg in the mornings. He notes that his recent liver enzymes were normal. Patient Active Problem List Diagnosis Code Benign [...] medical history: Reviewed and unchanged. Family history: Reviewed and unchanged. Social History Substance Use Topics Smoking status: Never Smoker Smokeless tobacco: Never Used Alcohol use Yes Comment: 1-2 drinks/month Current Outpatient Prescriptions Medication Sig Dispense Refill amLODIPine (NORVASC) 10 MG Tablet 1 daily amoxicillin (AMOXIL) 500 MG Capsule For dental procedures Apremilast (OTEZLA) 30 MG TABS Take 1 Tab by mouth 2 times a day. 60 Tab 5 Aspirin 81 MG Tablet 1 daily Cholecalciferol (VITAMIN D) 1000 UNIT Capsule 1 daily clobetasol propionate (TEMOVATE) 0.05 % ointment As needed glimepiride (AMARYL) 4 MG Tablet 1 tab twice daily Lisinopril 40 MG Tablet 1 tab daily metFORMIN (GLUCOPHAGE) 500 MG Tablet 2 tabs daily metoprolol tartrate (LOPRESSOR) 100 MG Tablet 1 tab twice daily omeprazole (PRILOSEC) 20 MG CPDR TAKE 1 CAPSULE BY MOUTH DAILY 90 Cap 1 PredniSONE (DELTASONE) 10 MG Tablet half tab daily 100 Tab 2 PredniSONE (MICHELLE) 5 MG TBEC 1 tab at 8 pm daily 30 Tab 5 traMADol (ULTRAM) 50 MG Tablet Take 2 Tabs by mouth every 6 hours as needed for Pain. 240 Tab 3 triamcinolone acetonide (ARISTOCORT) 0.1 % cream As directed Allergies: Review of patient's allergies indicates: Allergen Reactions Codeine Review of systems: All other Review of Systems reviewed and other than the issues noted in the History of present illness, no other significant symptoms are present. Physical exam: BP 132/74 | Temp (Src) 97.8 (Tympanic) | Wt 295 lbs (133.811kg) | BMI 47.61 kg/m | BSA 2.5 m General: He appears well and is in no acute distress. Skin: Small psoriatic patches on the elbows; hyperpigmentation on the lower legs Chest: Clear to A&P. Heart: Rate regular. No murmurs, rubs or gallops. Extremities: trace LE edema. Normal pulses. Neuro: gait normal, no focal findings Musculoskeletal: Tenderness anteriorly of the left shoulder with abduction only to 90 degrees. ASSESSMENT: ICD-10-CM 1. Impingement syndrome of shoulder region, left M75.42 2. Psoriatic arthritis (HCC) L40.50 3. Encounter for long-term (current) use of high-risk medication Z79.899 PLAN: 1. Procedure: Patient identified, procedure verified, site verified. Risks/benefits discussed. Informed consent obtained. Final verification of procedure. Timeout performed. Application of topical anesthetic and sterile preparation. Injection site: left shoulder injected with Depomedrol 40 mg mixed with 1 ml of 2% lidocaine. Patient tolerated well, no complications. Post procedure instructions provided. 2. He was advised to stop Michelle to see if his leg swelling improves. 3. New lab orders due 1 week prior to next clinic visit provided. 4. He was encouraged to contact me with any questions or concerns. 5. RTC in 3 months Nadeen Steiner Associate, Department of Rheumatology CC: Nimo Stewart MD in this encounter Nursing Notes * Heather Ogden LPN - 10/10/2017 8:01 AM EDT Formatting of this note may be different from the original. Chief Complaint Patient presents with Rheum Follow Up Pt returns for Left shoulder pain in this encounter Plan of Treatment Upcoming Encounters Date Type Specialty Care Team Description 10/21/2017 Pharmacy Pharmacy Medication, [facility]ill, [address] [address] [phone] 12/30/2017 Office Visit Rheumatology Nadeen Steiner MD [address] [place] [address] [phone] 03/12/2018 Pharmacy Pharmacy Medication, [facility], [address] [address] [phone] Scheduled Tests Name Priority Associated Diagnoses Order S chedule ARTHROCENT ASP &/OR INJ MAJOR JX/BURSA W/O Routine Impingement syndrome of shoulder region, left Ordered: 10/10/2017 CBC/DIFF Routine Psoriatic arthritis (HCC) Encounter for long-term (current) use of high-risk medication Ordered: 10/10/2017 HEP FUNCTION PANEL Routine Psoriatic arthritis (HCC) Encounter for long-term (current) use of high-risk medication Ordered: 10/10/2017 CREATININE SERUM Routine Psoriatic arthritis (HCC) Encounter for long-term (current) use of high-risk medication Ordered: 10/10/2017 Health Maintenance Due Date Last Done Comments [...] fileas of this encounter Visit Diagnoses Diagnosis Impingement syndrome of shou lder region, left - Primary Psoriatic arthritis (HCC) Psoriatic arthropathy Encounter for long-term (cur rent) use of high-risk medication Encounter for long-term (current) use of other medications in this encounter Administered Medications Inactive Administered Medications - up to 3 most recent administrations Medication Order MAR Action Action Date Dose Rate Site Lidocaine 2 % (PF) inj 20 mg 20 mg (1 mL), Intra-Articular, ONCE, Mary Lou 10/10/17 at 0845 Given 10/10/2017 08:16 EDT 20 mg Shoulder Left methylPREDNISolone acetate (DEPO-MEDROL) 40 MG/ML inj 40 mg 40 mg, Intra-Articular, ONCE, Mary Lou 10/10/17 at 0845 Given 10/10/2017 08:15 EDT 40 mg Sarina ulder Left in this encounter Insurance Payer Benefit Plan / Group Subscriber ID Type Phone Address MEDICARE REPLACEMENT [employer] PPO [id number] Medicar e as of this encounter"
--- OUTSIDE RECORDS SUMMARY | 2023-02-05 23:45 | External Medical Summary | Summary of Care ---
Author Name Unknown Organization [place] [address] Phone Care Team Providers Care Watch Repairer Apprentice Name Role Phone Nimo Stewart MD Primary Care Provider [phone] Reason for Visit * Reason Comments MEDICATION REFILL Encounter Details Date Type Department Care Team Description 10/10/2017 Refill Rheumatology [place] [address] [employer] [place] [address] Nadeen Steiner MD [facility] [employer] [place] [id number] PSA (psoriatic arthritis) ([facility]) Allergies Active Allergy Reactions Severity Noted Date [...] PredniSONE (MICHELLE) 5 MG TBECIndications:Ps oriatic arthritis (HCC) 1 tab at 8 pm daily 30 Tab 5 07/22/2017 Active traMADol (ULTRAM) 50 MG TabletIndications: Psoriatic arthritis (HCC),Acute pain of both shoulders Take 2 Tabs by mouth every 6 hours as needed for Pain. 240 Tab 3 08/29/2017 Active PredniSONE (DELTASONE) 10 MG TabletIndications: Psoriatic arthritis (HCC) half tab daily 100 Tab 3 10/10/2017 Active Apremilast (OTEZLA) 30 MG TABSIndications:PS A (psoriatic arthritis) (HCC) Take 1 Tab by mouth 2 times a day. 60 Tab 5 10/10/2017 Active Apremilast (OTEZLA) 30 MG TABSIndications:PS A (psoriatic arthritis) (HCC) Take 1 Tab by mouth 2 times a day. 60 Tab 5 03/25/2017 8 Discontinued PredniSONE (DELTASONE) 10 MG TabletIndications: Psoriatic arthritis (HCC) half tab daily 100 Tab 2 07/22/2017 8 Discontinued PredniSONE (MICHELLE) 5 MG TBEC Take by mouth. 1 daily 8 Discontinued as of this encounter Active Problems Problem Noted Date Body mass index (BMI) of 45.0 to 49.9 in adult ([facility]) 03/11/2017 Overview: Per Obesity protocol #1 Hyperlipidemia 09/17/2014 GERD (gastroesophageal reflux disease) 0 09/17/2014 Hypertension 09/17/2014 Psoriatic arthritis ([facility]) 09/17/2014 Overview: On Remicade 600 mg every 6 weeks Diabetes mellitus ([facility]) 09/17/2014 Diabetic neuropathy ([facility]) 09/17/2014 High risk medication use 09/17/2014 [...] Telephone Encounter - Nadeen Steiner MD - 10/10/2017 12:26 PM EDT Signed Prescriptions: Disp Refills Apremilast (OTEZLA) 30 MG TABS 60 Tab 5 Sig: Take 1 Tab by mouth 2 times a day. Authorizing Provider: NADEEN STEINER * Telephone Encounter - Melissa Graham CPhT - 10/10/2017 11:18 AM EDT Formatting of this note may be different from the original. Pending Prescriptions: Disp Refills Apremilast (OTEZLA) 30 MG TABS 60 Tab 5 Sig: Take 1 Tab by mouth 2 times a day. Last Office Visit: 10/10/2017 Next Office Visit: 12/30/2017 Scheduled Provider(s): Nadeen Steiner MD If no future appointments scheduled, and last appointment is greater than a year ago, please schedule patient for a follow-up appointment Last date the medication was ordered: 03/25/18 Patient Phone Numbers Labs: Lab Results Component Value Date/Time CREAT 1.00 11/20/2016 in this encounter Plan of Treatment Upcoming Encounters Date Type Specialty Care Team Description 10/21/2017 Pharmacy Pharmacy Medication, [facility] Specialty Refill, [address] [address] [phone] 12/30/2017 Office Visit Rheumatology Nadeen Steiner MD [facility] [place] [address] [phone] 03/12/2018 Pharmacy Pharmacy Medication, [facility], [address] [address] [phone] Health Maintenance Due Date Last Done Comments [...] Diagnoses Diagnosis PSA (psoriatic arthritis) ([facility]) Psoriatic arthropathy in this encounter Insurance Payer Benefit Plan / Group Subscriber ID Type Phone Address MEDICARE DIXON PEREZ PPO [id number] Medicar e as of this encounter
--- OUTSIDE RECORDS SUMMARY | 2023-02-05 23:45 | External Medical Summary | Summary of Care ---
Author Name Unknown Organization [place] [address] Phone Care Team Providers Care Electrician Helper Powerhouse Name Role Phone Nimo Stewart MD Primary Care Provider [phone] Reason for Visit * Reason Comments Information Your Survival Patient Assi stance Program for Otezla Encounter Details Date Type Department Care Team Description 10/10/2017 Telephone Rheumatology [facility] [address] [employer] [place] [address] Nadeen Steiner MD [address] [place] [address] Information (Your Survival Patient Assistance Pr... Allergies Active Allergy Reactions Severity Noted Date [...] PredniSONE (MICHELLE) 5 MG TBECIndications:Ps oriatic arthritis ([facility]) 1 tab at 8 pm daily 30 Tab 5 07/22/2017 Active traMADol (ULTRAM) 50 MG TabletIndications: Psoriatic arthritis ([facility]),Acute pain of both shoulders Take 2 Tabs by mouth every 6 hours as needed for Pain. 240 Tab 3 08/29/2017 Active PredniSONE (DELTASONE) 10 MG TabletIndications: Psoriatic arthritis ([facility]) half tab daily 100 Tab 3 10/10/2017 Active Apremilast (OTEZLA) 30 MG TABSIndications:PS A (psoriatic arthritis) ([facility]) Take 1 Tab by mouth 2 times a day. 60 Tab 5 10/10/2017 Active Apremilast (OTEZLA) 30 MG TABSIndications:PS A (psoriatic arthritis) ([facility]) Take 1 Tab by mouth 2 times a day. 60 Tab 5 03/25/2017 8 Discontinued PredniSONE (DELTASONE) 10 MG TabletIndications: Psoriatic arthritis ([facility]) half tab daily 100 Tab 2 07/22/2017 8 Discontinued PredniSONE (MICHELLE) 5 MG TBEC Take by mouth. 1 daily 8 Discontinued as of this encounter Active Problems Problem Noted Date Body mass index (BMI) of 45.0 to 49.9 in adult ([facility]) 03/11/2017 Overview: Per Obesity protocol #1 Hyperlipidemia 09/17/2014 GERD (gastroesophageal reflux disease) 0 09/17/2014 Hypertension 09/17/2014 Psoriatic arthritis ([facility]) 09/17/2014 Overview: On Remicade 600 mg every 6 weeks Diabetes mellitus ([facility]) 09/17/2014 Diabetic neuropathy ([facility]) 09/17/2014 High risk medication [...] encounter Miscellaneous Notes * Telephone Encounter - Heather gOden LPN - 10/10/2017 2:03 PM EDT Received letter from [employer] that pt is denied pt assistance due to; he does not meet incomecirteria. Letter placed in scanning. [facility] pt has received letter as well. in this encounter Plan of Treatment Upcoming Encounters Date Type Specialty Care Team Description 10/21/2017 Pharmacy Pharmacy Medication, [facility], [facility] [address] [address] [phone] 12/30/2017 Office Visit Rheumatology Nadeen Steiner MD [address] [place] [address] [phone] 03/12/2018 Pharmacy Pharmacy Medication, [facility], [address] [address] [phone] Health Maintenance Due Date Last Done Comments [...] Implants Not on fileas of this encounter Insurance Payer Benefit Plan / Group Subscriber ID Type Phone Address MEDICARE REPLACEMENT [employer] PPO [id number] Medicar e as of this encounter
--- OUTSIDE RECORDS SUMMARY | 2023-02-05 23:45 | External Medical Summary | Summary of Care ---
Author Name Unknown Organization [place] [address] Phone Care Team Providers Care News Producer Name Role Phone Nimo Stewart MD Primary Care Provider [phone] Reason for Visit * Reason Comments MEDICATION REFILL Encounter Details Date Type Department Care Team Description 10/21/2017 Pharmacy [facility] 25 [facility], [address] [place] [address] [id number] Medication, [facility] Refill, [facility] [address] [address] Encounter for medication refill* Allergies [...] PredniSONE (MICHELLE) 5 MG TBECIndications:Psori atic arthritis ([facility]) 1 tab at 8 pm daily 30 Tab 5 07/22/2017 Active traMADol (ULTRAM) 50 MG TabletIndications:Pso riatic arthritis ([facility]),Acute pain of both shoulders Take 2 Tabs by mouth every 6 hours as needed for Pain. 240 Tab 3 08/29/2017 Active PredniSONE (DELTASONE) 10 MG TabletIndications:Pso riatic arthritis ([facility]) half tab daily 100 Tab 3 10/10/2017 Active Apremilast (OTEZLA) 30 MG TABSIndications:PSA (psoriatic arthritis) ([facility]) Take 1 Tab by mouth 2 times a day. 60 Tab 5 10/10/2017 Active as of this encounter Active Problems Problem Noted Date Body mass index (BMI) of 45.0 to 49.9 in adult ([facility]) 03/11/2017 Overview: Per Obesity protocol #1 Hyperlipidemia 09/17/2014 GERD (gastroesophageal reflux disease) 0 09/17/2014 Hypertension 09/17/2014 Psoriatic arthritis ([facility]) 09/17/2014 Overview: On Remicade 600 mg every 6 weeks Diabetes mellitus ([facility]) 09/17/2014 Diabetic neuropathy ([facility]) 09/17/2014 High risk medication use 09/17/2014 [...] as of this encounter Progress Notes * Cici Handley [facility] - 10/24/2017 8:22 AM EDT Shipping via [facility] 10/24/[address] [facility], PharmD Specialty Medication Pharmacist [facility] 10/24/2017,8:22 AM * Arlette Dodson CPhT - 10/22/2017 3:26 PM EDT [facility] REFILL CALL NOTE Sarwat Campbell [id number] Patient is a 72 year old male on the schedule today for a telephone call concerning their refill ofOTEZLA Spoke to CHARY Does patient have any questions regarding medication(s)? no Is patient having difficulty taking medication(s) as prescribed? no Does patient have any concerns or complaints regarding possible side effects of medication(s)? no How much medication does patient have left in present supply? A FEW DAYS Would patient like to schedule refill of medication today which will be shipped when patient has approximately 1 week left on present supply? yes Shipment date: 10/24/2017 Delivery method:UPS Discussed copay of prescription?:yes; patient verbalized understanding Discussed outstanding balance?:yes; patient verbalized understanding Discussed payment options?:yes; patient verbalized understanding Medication shipped to:[address] [place] [address] Satisfaction survey: NA Patient reminded that they will be receiving a telephone call from pharmacy to schedule their next refill when they have approximately 1 week of medication remaining. In the interim, patient advised to call pharmacy should they have any questions or concerns. Arlette Dodson, machine bender 10/22/2017, 3:27 PM in this encounter Plan of Treatment Upcoming Encounters Date Type Specialty Care Team Description 11/19/2017 Pharmacy Pharmacy Medication, [facility], [address] [address] [phone] 12/30/2017 Office Visit Rheumatology Nadeen Steiner MD [address] [place] [address] [phone] 03/12/2018 Pharmacy Pharmacy Medication, [facility], [address] [address] [phone] Health Maintenance Due Date Last Done Comments [...]
--- OUTSIDE RECORDS SUMMARY | 2023-02-05 23:45 | External Medical Summary | Summary of Care ---
Author Name Unknown Organization [place] [address] Phone Care Team Providers Care Soil Surveyor Name Role Phone Nimo Stewart MD Primary Care Provider [phone] Reason for Visit * Reason Comments MEDICATION REFILL Encounter Details Date Type Department Care Team Description 10/17/2017 Pharmacy [facility] [address] [facility], [address] [place] [address] Assistance, [facility], [facility] [address] [address] Encounter for medication refill* Allergies [...] PredniSONE (MICHELLE) 5 MG TBECIndications:Psori atic arthritis ([facility]) 1 tab at 8 pm daily 30 Tab 5 07/22/2017 Active traMADol (ULTRAM) 50 MG TabletIndications:Pso riatic arthritis ([facility]),Acute pain of both shoulders Take 2 Tabs by mouth every 6 hours as needed for Pain. 240 Tab 3 08/29/2017 Active PredniSONE (DELTASONE) 10 MG TabletIndications:Pso riatic arthritis ([facility]) half tab daily 100 Tab 3 10/10/2017 Active Apremilast (OTEZLA) 30 MG TABSIndications:PSA (psoriatic arthritis) ([facility]) Take 1 Tab by mouth 2 times a day. 60 Tab 5 10/10/2017 Active as of this encounter Active Problems Problem Noted Date Body mass index (BMI) of 45.0 to 49.9 in adult ([facility]) 03/11/2017 Overview: Per Obesity protocol #1 Hyperlipidemia 09/17/2014 GERD (gastroesophageal reflux disease) 0 09/17/2014 Hypertension 09/17/2014 Psoriatic arthritis ([facility]) 09/17/2014 Overview: On Remicade 600 mg every 6 weeks Diabetes mellitus ([facility]) 09/17/2014 Diabetic neuropathy ([facility]) 09/17/2014 High risk medication [...] Notes * Destini Leavitt V, LIDYA - 10/17/2017 4:09 PM EDT LM for patient to return my call, wanted to confirm he had heard from [employer]. Destini Leavitt Pharmacy Lift Mechanic [facility] 10/17/2017,4:10 PM in this encounter Plan of Treatment Upcoming Encounters Date Type Specialty Care Team Description 10/17/2017 Pharmacy Pharmacy Assistance, [facility], [address] [place] [address] Encounter for medication refill* 10/21/2017 Pharmacy Pharmacy Medication, [facility] Refill, [facility] [address] [address] [phone] 12/30/2017 Office Visit Rheumatology Nadeen Steiner MD [address] [place] [address] [phone] 03/12/2018 Pharmacy Pharmacy Medication, [facility], [facility] [address] [address] [phone] Health Maintenance Due Date Last Done Comments [...]
--- OUTSIDE RECORDS SUMMARY | 2023-02-05 23:45 | External Medical Summary | Summary of Care ---
Author Name Unknown Organization [place] [address] Phone Care Team Providers Care Disease And Insect Control Boss Name Role Phone Nimo Stewart MD Primary Care Provider [phone] Reason for Visit * Reason Comments ADVICE Encounter Details Date Type Department Care Team Description 10/09/2017 Telephone Rheumatology [place] [id number] [employer] [place] [address] Nadeen Steiner MD [address] [place] [address] ADVICE Allergies Active Allergy Reactions Severity Noted Date [...] 10 MG TabletIndications:Pso riatic arthritis ([facility]) half tab daily 100 Tab 2 07/22/2017 Active traMADol (ULTRAM) 50 MG TabletIndications:Pso riatic arthritis ([facility]),Acute pain of both shoulders Take 2 Tabs by mouth every 6 hours as needed for Pain. 240 Tab 3 08/29/2017 Active as of this encounter Active Problems Problem Noted Date Body mass index (BMI) of 45.0 to 49.9 in adult ([facility]) 03/11/2017 Overview: Per Obesity protocol #1 Hyperlipidemia 09/17/2014 GERD (gastroesophageal reflux disease) 0 09/17/2014 Hypertension 09/17/2014 Psoriatic arthritis ([facility]) 09/17/2014 Overview: On Remicade 600 mg every 6 weeks Diabetes mellitus ([facility]) 09/17/2014 Diabetic neuropathy ([facility]) 09/17/2014 High risk medication use [...] Telephone Encounter - Jessie Allison OSA - 10/09/2017 9:47 AM EDT Pt not available. Spoke with pt and she scheduled him for 8 am 10/10 * Telephone Encounter - Nadeen Steiner MD - 10/09/2017 9:35 AM EDT Inform the patient that I am in the [facility] today. Offer 8 am or 4:20 pm tomorrow in [facility] or Saturday at 9 am or 9:40 am. * Telephone Encounter - Piedad Desouza Janneth, LIDYA - 10/09/2017 8:17 AM EDT No appointments available. Pt requesting a steroid injection for ongoing left shoulder pain. Patient declined appointments?: Patient Callback Number: [phone] in this encounter Plan of Treatment Upcoming Encounters Date Type Specialty Care Team Description 10/10/2017 Office Visit Rheumatology Nadeen Steiner MD [address] [facility] [place] [place] [address] [phone] 10/21/2017 Office Visit Rheumatology Nadeen Steiner MD [address] [facility] [place] [address] [phone] 10/21/2017 Pharmacy Pharmacy Medication, [facility] Refill, [address] [address] [phone] 03/12/2018 Pharmacy Pharmacy Medication, [facility], [address] [address] [phone] Health Maintenance Due Date Last Done Comments [...] Subscriber ID Type Phone Address MEDICARE REPLACEMENT [employer] O [id number] Medicar e as of this encounter
--- OUTSIDE RECORDS SUMMARY | 2023-02-05 23:45 | External Medical Summary | Summary of Care ---
Author Name Unknown Organization [place] [address] Phone Care Team Providers Care Drug Abuse Technician Name Role Phone Nimo Stewart MD Primary Care Provider [phone] Reason for Visit * Reason Comments MEDICATION REFILL Encounter Details Date Type Department Care Team Description 10/02/2017 Pharmacy [facility] 25 [facility], [address] [place] [address] Assistance, [facility], [facility] [address] [address] Encounter for medication refill* Allergies [...] PredniSONE (DELTASONE) 10 MG TabletIndications:Pso riatic arthritis ([facility]) half tab daily 100 Tab 2 07/22/2017 Active traMADol (ULTRAM) 50 MG TabletIndications:Pso riatic arthritis ([facility]),Acute pain of both shoulders Take 2 Tabs by mouth every 6 hours as needed for Pain. 240 Tab 3 08/29/2017 Active as of this encounter Active Problems Problem Noted Date Body mass index (BMI) of 45.0 to 49.9 in adult ([facility]) 03/11/2017 Overview: Per Obesity protocol #1 Hyperlipidemia 09/17/2014 GERD (gastroesophageal reflux disease) 0 09/17/2014 Hypertension 09/17/2014 Psoriatic arthritis ([facility]) 09/17/2014 Overview: On Remicade 600 mg every 6 weeks Diabetes mellitus ([facility]) 09/17/2014 Diabetic neuropathy ([facility]) 09/17/2014 High risk medication use 09/17/2014 CKD [...] * Destini Leavitt V, LIDYA - 09/24/2017 12:38 PM EDT Incoming call from patient's . She informed me they have received the PAP application in the mail and she will return it to me in the mail tomorrow. Destini Leavitt Pharmacy Customer Assistance Representative [facility] 10/02/2017,3:14 PM in this encounter Plan of Treatment Upcoming Encounters Date Type Specialty Care Team Description 10/21/2017 Office Visit Rheumatology Nadeen Steiner MD [address] [place] [address] [phone] 10/21/2017 Pharmacy Pharmacy Medication, [facility] Refill, [facility] [address] [address] [phone] 03/12/2018 Pharmacy Pharmacy Medication, [facility], [address] [address] [phone] Health Maintenance Due Date Last Done Comments [...] ID Type Phone Address MEDICARE REPLACEMENT [employer] PPO [id number] Medicar e as of this encounter
--- OUTSIDE RECORDS SUMMARY | 2023-02-05 23:45 | External Medical Summary | Summary of Care ---
Author Name Unknown Organization [place] [address] Phone Care Team Providers Care Rn Surgical Pcu Name Role Phone Nimo Stewart MD Primary Care Provider [phone] Reason for Visit * Reason Comments MEDICATION REFILL Encounter Details Date Type Department Care Team Description 10/25/2017 Refill Rheumatology [place] [id number] [employer] [place] [address] Nadeen Steiner MD [address] [employer] [place] [id number] Psoriatic arthritis (HCC);Acute pain of both shoulders Allergies Active Allergy [...] 5 MG TBECIndications:Ps oriatic arthritis ([facility]) 1 tab at 8 pm daily 30 Tab 5 07/22/2017 Active PredniSONE (DELTASONE) 10 MG TabletIndications: Psoriatic arthritis ([facility]) half tab daily 100 Tab 3 10/10/2017 Active Apremilast (OTEZLA) 30 MG TABSIndications:PS A (psoriatic arthritis) ([facility]) Take 1 Tab by mouth 2 times a day. 60 Tab 5 10/10/2017 Active traMADol (ULTRAM) 50 MG TabletIndications: Psoriatic arthritis ([facility]),Acute pain of both shoulders Take 2 Tabs by mouth every 6 hours as needed for Pain. 240 Tab 3 10/25/2017 Active traMADol (ULTRAM) 50 MG TabletIndications: Psoriatic arthritis ([facility]),Acute pain of both shoulders Take 2 Tabs by mouth every 6 hours as needed for Pain. 240 Tab 3 08/29/2017 8 Discontinued traMADol (ULTRAM) 50 MG TabletIndications: Psoriatic arthritis ([facility]),Acute pain of both shoulders Take 2 Tabs by mouth every 6 hours as needed for Pain. 240 Tab 3 10/25/2017 8 Discontinued as of this encounter Active Problems Problem Noted Date Body mass index (BMI) of 45.0 to 49.9 in adult ([facility]) 03/11/2017 Overview: Per Obesity protocol #1 Hyperlipidemia 09/17/2014 GERD (gastroesophageal reflux disease) 0 09/17/2014 Hypertension 09/17/2014 Psoriatic arthritis ([facility]) 09/17/2014 Overview: On Remicade 600 mg every 6 weeks Diabetes mellitus ([facility]) 09/17/2014 Diabetic neuropathy ([facility]) 09/17/2014 High risk medication use 09/17/2014 CKD [...] Addendum Note - Nadeen Steiner MD - 10/25/2017 5:37 PM EDT Addended by: NADEEN STEINER on: 10/25/2017 05:37 PM Modules accepted: Orders * Telephone Encounter - Nadeen Steiner MD - 10/25/2017 5:37 PM EDT rx sent to pharmacy * Telephone Encounter - Nadeen Steiner MD - 10/25/2017 5:36 PM EDT Signed Prescriptions: Disp Refills traMADol (ULTRAM) 50 MG Tablet 240 Tab3 Sig: Take 2 Tabs by mouth every 6 hours as needed for Pain. Authorizing Provider: NADEEN STEINER * Telephone Encounter - Nadeen Steiner MD - 10/25/2017 5:36 PM EDT I have reviewed the patients controlled substance dispensing history in the Prescription Drug Monitoring Program in compliance with the [facility] regulations before prescribing a controlled substance. * Telephone Encounter - Van Smith LPN - 10/25/2017 1:01 PM EDT Pending Prescriptions: Disp Refills traMADol (ULTRAM) 50 MG Tablet 240 Tab3 Sig: Take 2 Tabs by mouth every 6 hours as needed for Pain. * Telephone Encounter - Sandra Castillo LPN - 10/25/2017 11:34 AM EDT Formatting of this note may be different from the original. Pending Prescriptions: Disp Refills traMADol (ULTRAM) 50 MG Tablet 240 Tab3 Sig: Take 2 Tabs by mouth every 6 hours as needed for Pain. 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 Hyperlipidemia E78.5 GERD (gastroesophageal reflux disease) K21.9 Hypertension I10 Psoriatic arthritis ([facility]) L40.50 Diabetes mellitus ([facility]) E11.9 Diabetic neuropathy ([facility]) E11.40 High risk medication use Z79.899 CKD (chronic kidney disease) stage 2, GFR 60-89 ml/min N18.2 Generalized osteoarthritis M15.9 Body mass index (BMI) of 45.0 to 49.9 in adult ([facility]) Z68.42 Labs: CREATININE-OUTSIDE LAB(MG/DL) Raymon Dt/Tm Resulted Value Status 11/20/16 11/22/16 1.00 FINAL POTASSIUM-OUTSIDE LAB(MMOL/L) Raymon Dt/Tm Resulted Value Status 11/20/16 11/22/16 4.2 FINAL No TSH components found No LDL components found ALT-OUTSIDE LAB(U/L) Raymon Dt/Tm Resulted Value Status 11/20/16 11/22/16 83* FINAL Hemoglobin AIC Results: No HEMOGLOBIN, A1C components found * Telephone Encounter - Ally Ibarra OSA - 10/25/2017 10:46 AM EDT Pt calling to request refills on the Rx for Tramadol. Informed pt that there are valid refills on file at their pharmacy. Pt verbalized understanding and stated they will check with their pharmacy regarding this medication. Thank you, Ally Ibarra [facility] [employer] [facility] 10/25/2017, 10:47 AM in this encounter Plan of Treatment Upcoming Encounters Date Type Specialty Care Team Description 11/19/2017 Pharmacy Pharmacy Medication, [facility] Refill, [facility] [address] [place] [address] [phone] 12/30/2017 Office Visit Rheumatology Nadeen Steiner MD [address] [place] [address] [phone] 03/12/2018 Pharmacy Pharmacy Medication, [facility], [facility] [address] [place] [address] [phone] Health Maintenance Due Date Last Done Comments [...]
--- OUTSIDE RECORDS SUMMARY | 2023-02-05 23:45 | External Medical Summary | Summary of Care ---
Author Name Unknown Organization [place] [address] Phone Care Team Providers Care Dog Barber Name Role Phone Unavailable Primary Care Provider Unavailabl e Reason for Visit * Reason Comments MEDICATION REFILL Encounter Details Date Type Department Care Team Description 08/13/2017 Pharmacy [facility] 25 [facility], [address] [place] [address] Medication, [facility] Refill, [facility] [address] [facility] [address] [place] [address] Encounter for medication refill* Allergies [...] 30 MG TABSIndications:PSA (psoriatic arthritis) ([facility]) Take 1 Tab by mouth 2 times a day. 60 Tab 5 03/25/2017 Active triamcinolone acetonide (ARISTOCORT) 0.1 % cream As directed 04/02/2017 Active omeprazole (PRILOSEC) 20 MG CPDR TAKE 1 CAPSULE BY MOUTH DAILY 90 Cap 1 07/05/2017 Active PredniSONE (MICHELLE) 5 MG TBECIndications:Psoria tic arthritis ([facility]) 1 tab at 8 pm daily 30 Tab 5 07/22/2017 Active PredniSONE (DELTASONE) 10 MG TabletIndications:Psor iatic arthritis ([facility]) half tab daily 100 Tab 2 07/22/2017 Active as of this encounter Active Problems Problem Noted Date Body mass index (BMI) of 45.0 to 49.9 in adult ([facility]) 03/11/2017 Overview: Per Obesity protocol #1 Hyperlipidemia 09/17/2014 GERD (gastroesophageal reflux disease) 0 09/17/2014 Hypertension 09/17/2014 Psoriatic arthritis ([facility]) 09/17/2014 Overview: On Remicade 600 mg every 6 weeks Diabetes mellitus ([facility]) 09/17/2014 Diabetic neuropathy ([facility]) 09/17/2014 High risk medication use 09/17/2014 [...] as of this encounter Progress Notes * Valerio Strong LIDYA - 08/19/2017 9:16 AM EDT Shipped via [facility] 08/19/2017 OLIVE STRONG [facility] 08/19/2017,9:16 AM * Arlette Dodson CPhT - 08/13/2017 2:21 PM [facility] REFILL CALL NOTE Hina Campbell [id number] Patient is a 72 year old male on the schedule today for a telephone call concerning their refill ofKURT Spoke to HINA Does patient have any [...] options?:yes; patient verbalized understanding Medication shipped to [address] [place] [address] Satisfaction survey: NA Patient reminded that they [...] 10/21/2017 Office Visit Rheumatology Nadeen Steiner MD [address] [place] [address] [phone] 03/12/2018 Pharmacy Pharmacy Medication, [facility], [address] [place] [address] Health Maintenance Due Date Last Done [...] Type Phone Address MEDICARE REPLACEMENT [employer] PPO [id number] Medicar e as of this encounter
--- OUTSIDE RECORDS SUMMARY | 2023-02-05 23:45 | External Medical Summary | Summary of Care ---
Author Name Unknown Organization [place] [address] Phone Care Team Providers Care Chicken Stuffer Name Role Phone Nimo Stewart MD Primary Care Provider [phone] Reason for Visit * Reason Comments MEDICATION REFILL Encounter Details Date Type Department Care Team Description 10/02/2017 Pharmacy [facility] [address] [address] Assistance, [facility], [facility] [address] [address] Encounter for medication refill* Allergies [...] PredniSONE (DELTASONE) 10 MG TabletIndications:Pso riatic arthritis ([facility]) half tab daily 100 Tab 2 07/22/2017 Active traMADol (ULTRAM) 50 MG TabletIndications:Pso riatic arthritis ([facility]),Acute pain of both shoulders Take 2 Tabs by mouth every 6 hours as needed for Pain. 240 Tab 3 08/29/2017 Active as of this encounter Active Problems Problem Noted Date Body mass index (BMI) of 45.0 to 49.9 in adult ([facility]) 03/11/2017 Overview: Per Obesity protocol #1 Hyperlipidemia 09/17/2014 GERD (gastroesophageal reflux disease) 0 09/17/2014 Hypertension 09/17/2014 Psoriatic arthritis ([facility]) 09/17/2014 Overview: On Remicade 600 mg every 6 weeks Diabetes mellitus ([facility]) 09/17/2014 Diabetic neuropathy ([facility]) 09/17/2014 High risk medication use 09/17/2014 CKD [...] Progress Notes * Destini Leavitt OSA - 10/08/2017 11:33 AM EDT Incoming call from [employer]. Associate Professor Of History wanted to confirm reason for seeking assistance, I informed her it is due to high out of pocket co-pay. She said she would reach out to patient for screening within the next 24-48 hours. Destini Leavitt Pharmacy Splitting Machine Operator [facility] 10/08/2017,11:34 AM * Destini Leavitt OSA - 09/24/2017 12:38 PM EDT Incoming call from patient's . She informed me they have received the PAP application in the mail and she will return it to me in the mail tomorrow. Destini Leavitt Pharmacy Splitting Machine Operator [facility] 10/02/2017,3:14 PM in this encounter Plan of Treatment Upcoming Encounters Date Type Specialty Care Team Description 10/21/2017 Office Visit Rheumatology Nadeen Steiner MD [facility] [place] [address] [phone] 10/21/2017 Pharmacy Pharmacy Medication, [facility] Refill, [address] [address] [phone] 03/12/2018 Pharmacy Pharmacy Medication, [facility], [address] [address] [phone] Health Maintenance Due Date Last Done Comments [...] Type Phone Address MEDICARE REPLACEMENT [employer] PPO [id number] Medicar e as of this encounter
--- OUTSIDE RECORDS SUMMARY | 2023-02-05 23:45 | External Medical Summary | Summary of Care ---
Author Name Unknown Organization [place] [address] Phone Care Team Providers Care Seafood Specialist Name Role Phone Nimo Stewart MD Primary Care Provider [phone] [phone] Reason for Visit * Reason Comments Rheum Follow Up return visit c/o "bi lateral shoulder pain" Encounter Details Date Type Department Care Team Description 08/29/2017 Office Visit Rheumatology [place] [id number] [place] [address] Nadeen Steiner MD [address] [place] [id number] Acute pain of both shoulders*;Psoriatic arthritis (HCC);Encounter for long-term (current) use of high-risk medication;MGUS (monoclonal gammopathy of unknown significance);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 60 Tab 5 03/25/2017 Active triamcinolone acetonide (ARISTOCORT) 0.1 % cream As directed 04/02/2017 Active omeprazole (PRILOSEC) 20 MG CPDR TAKE 1 CAPSULE BY MOUTH DAILY 90 Cap 1 07/05/2017 Active PredniSONE (MICHELLE) 5 MG TBECIndications:Psor iatic arthritis ([facility]) 1 tab at 8 pm daily 30 Tab 5 07/22/2017 Active PredniSONE (DELTASONE) 10 MG TabletIndications:Ps oriatic arthritis ([facility]) half tab daily 100 Tab 2 07/22/2017 Active traMADol (ULTRAM) 50 MG TabletIndications:Ps oriatic arthritis ([facility]),Acute pain of both shoulders Take 2 Tabs by mouth every 6 hours as needed for Pain. 240 Tab 3 08/29/2017 Active traMADol (ULTRAM) 50 MG TabletIndications:Ps oriatic arthritis ([facility]),Generalized osteoarthritis Take 1 Tab by mouth every 6 hours as needed for Pain. 120 Tab 3 03/11/2017 8 Discontinued Hospital, Clinic, or Other Facility Administered Medication Ordered Dose Route Frequency Start Date End Date Status methylPREDNISolone acetate (DEPO-MEDROL) 40 MG/ML inj 40 mgIndications:Acute pain of both shoulders 40 MG IX Once 08/29/2017 08/29/2017 Ended methylPREDNISolone acetate (DEPO-MEDROL) 40 MG/ML inj 40 mgIndications:Acute pain of both shoulders 40 MG IX Once 08/29/2017 08/29/2017 Ended Lidocaine 2 % (PF) inj 20 mgIndications:Acute pain of both shoulders 20 MG IX Once 08/29/2017 08/29/2017 Ended Lidocaine 2 % (PF) inj 20 mgIndications:Acute pain of both shoulders 20 MG IX Once 08/29/2017 08/29/2017 Ended as of this encounter Active Problems Problem Noted Date Body mass index (BMI) of 45.0 to 49.9 in adult ([facility]) 03/11/2017 Overview: Per Obesity protocol #1 Hyperlipidemia 09/17/2014 GERD (gastroesophageal reflux disease) 0 09/17/2014 Hypertension 09/17/2014 Psoriatic arthritis (HCC) 09/17/2014 Overview: On Remicade 600 mg every 6 weeks Diabetes mellitus (HCC) 09/17/2014 Diabetic neuropathy (HCC) [...] Vital Sign Reading Time Taken Blood Pressure 150/70 08/29/2017 2:36 PM EDT Pulse - - Temperature 36.9 C (98.5 F) 08/29/2017 2 :36 PM EDT Respiratory Rate - - Oxygen Saturation - - Inhaled Oxygen Concentration - - Weight 137 kg (302 lb) 08/29/2017 2:36 PM EDT Height - - Body Mass Index 48.74 08/29/2017 2:36 PM EDT in this encounter Instructions * Patient Instructions - Nadeen Steiner MD - 08/29/2017 3:04 PM EDT Ok to increase tramadol to 2 pills every 6 hours. Get x-rays of your shoulder in this encounter Progress Notes * Nadeen Steiner MD - 08/29/2017 2:32 PM EDT Formatting of this note may be different from the original. Reason for visit: Bilateral shoulder pain Last Office Visit: 07/26/2017. Inflammatory disease: Diagnosis date: Past treatments: steroids, methotrexate, Enbrel, Remicade (1999-August 2016) discontinued due topersistent transaminitis and diagnosis of MGUS Current regimen: Otezla, prednisone 5 mg daily, Michelle at 8 pm. History of present illness: He is now having pain in both shoulders. Symptoms have been present forthe past several weeks. He notes the pain radiates down his upper arm into the elbows. Pain is worse at bedtime and prevents him from sleeping. He cannot get comfortable lying down or even trying to sleep in his recliner. He received a steroid injection to his left shoulder at the last visit which was very helpful. Addition of Michelle to his regimen has not been helpful. He continues on Otezla and notes that his skin continues to clear up. He does not have any other significant joint pain aside from his shoulders. He denies any trauma or overuse. He questions if he can take tramadol up to 2 tablets every 6 hours. He picked up his most recent prescription and does not have any other refills oftramadol. He denies any joint swelling. 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 Hyperlipidemia E78.5 GERD (gastroesophageal reflux disease) K21.9 Hypertension I10 Psoriatic arthritis ([facility]) L40.50 Diabetes mellitus ([facility]) E11.9 Diabetic neuropathy ([facility]) E11.40 High risk medication use Z79.899 CKD (chronic kidney disease) stage 2, GFR 60-89 ml/min N18.2 Generalized osteoarthritis M15.9 Body mass index (BMI) of 45.0 to 49.9 in adult ([facility]) Z68.42 Past medical history: Reviewed and [...] 5 traMADol (ULTRAM) 50 MG Tablet Take 1 Tab by mouth every 6 hours as needed for Pain. 120 Tab 3 triamcinolone acetonide (ARISTOCORT) 0.1 % cream As directed Examination: Vital signs: BP 150/70 | Temp (Src) 98.5 (Tympanic) | Wt 302 lbs (136.986kg) | BMI 48.74 kg/m | BSA 2.53 m General: He appears well and is in no acute distress. Skin: Small psoriatic plaque on right elbow Chest: Clear to ascultation bilaterally with no wheezing, rales, or rhonchi. Heart: Rate regular and rhythm with normal S1 and S2. No murmurs, rubs or gallops. Extremities: No edema. Normal pulses. Musculoskeletal: Pain with abduction of both shoulders Synovitis: None Tender joints: Shoulders Diagnostic data reviewed Outside labs from last month were reviewed and within acceptable range Assessment: ICD-10-CM 1. Acute pain of both shoulders M25.511 M25.512 2. Psoriatic arthritis (HCC) L40.50 3. Encounter for long-term (current) use of high-risk medication Z79.899 4. MGUS (monoclonal gammopathy of unknown significance) D47.2 5. 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 Generalized osteoarthritis M15.9 He now has right shoulder pain and return of left shoulder pain. He reports that he had arthroscopic clean out of the right shoulder several years ago. He has no weakness. Shoulder symptoms may be due to arthritis versus rotator cuff/impingement syndrome. He did find benefit from local steroid injections. His psoriasis appears to be well controlled, and he does not have peripheral joint swelling as previously seen when he was off immunosuppressive therapy. Plan: 1. Discussed the above in detail with the patient. All questions were answered. 2. Will obtain x-rays of both shoulders. 3. Procedure: Patient identified, procedure verified, site verified. Risks/benefits discussed. Informed consent obtained. Final verification of procedure. Timeout performed. Application of topical anesthetic and sterile preparation. injection site: bilateral shoulder injected with Depomedrol 40 mg m ixed with 1 ml of 2% lidocaine. Patient tolerated well, no complications. Post procedure instructions provided. 4. Okay to increase tramadol from 1 to 2 tablets every 6 hours as needed for pain. 5. May consider physical therapy or referral to orthopedics depending on clinic response. 6. He was advised to keep his appointment in October. 7. He was encouraged to contact me with any questions or concerns. Nadeen Steiner MD PhD Rheumatology CC: Nimo Stewart MD in this encounter Nursing Notes * Van Smith Janneth, STORAGE BRINE WORKER - 08/29/2017 2:35 PM EDT Formatting of this note may be different from the original. Chief Complaint Patient presents with Rheum Follow Up return visit c/o "bilateral shoulder pain" in this encounter Plan of Treatment Upcoming Encounters Date Type Specialty Care Team Description 10/21/2017 Office Visit Rheumatology Nadeen Steiner MD [address] [place] [address] [phone] 03/12/2018 Pharmacy Pharmacy Medication, [facility], [address] [place] [address] [phone] Scheduled Tests Name Priority Associated Diagnoses Order S chedule XR SHOULDER, 2 OR MORE VIEWS Routine Acute pain of both shoulders Ordered: 08/29/2017 ARTHROCENT ASP &/OR INJ MAJOR JX/BURSA W/O US Routine Acute pain of both shoulders Ordered: 08/29/2017 ARTHROCENT ASP &/OR INJ MAJOR JX/BURSA W/O US Routine Acute pain of both shoulders Ordered: 08/29/2017 Health Maintenance Due Date Last Done Comments [...] fileas of this encounter Visit Diagnoses Diagnosis Acute pain of both shoulders - Primary Psoriatic arthritis (HCC) Psoriatic arthropathy Encounter for long-term (cur rent) use of high-risk medication Encounter for long-term (current) use of other medications MGUS (monoclonal gammopathy of unknown significance) Monoclonal paraproteinemia terminologist current use of sys temic steroids Encounter for long-term (current) use of steroids Generalized osteoarthritis Generalized osteoarthrosis, unspecified site in this encounter Administered Medications Inactive Administered Medications - up to 3 most recent administrations Medication Order MAR Action Action Date Dose Rate Site Lidocaine 2 % (PF) inj 20 mg 20 mg (1 mL), Intra-Articular, ONCE, Mary Lou 08/29/17 at 1545 Given 08/29/2017 15:02 EDT 20 mg Shoul frank Right Lidocaine 2 % (PF) inj 20 mg 20 mg (1 mL), Intra-Articular, ONCE, Mary Lou 08/29/17 at 1545 Given 08/29/2017 15:00 EDT 20 mg Shoul frank Left methylPREDNISolone acetate (DEPO-MEDROL) 40 MG/ML inj 40 mg 40 mg, Intra-Articular, ONCE, Mary Lou 08/29/17 at 1545 Given 08/29/2017 15:02 EDT 40 mg Shoulder Right methylPREDNISolone acetate (DEPO-MEDROL) 40 MG/ML inj 40 mg 40 mg, Intra-Articular, ONCE, Mary Lou 08/29/17 at 1545 Given 08/29/2017 15:00 EDT 40 mg Shoulder Left in this encounter Insurance Payer Benefit Plan / Group Subscriber ID Type Phone Address MEDICARE REPLACEMENT [employer] PPO [id number] Medicar e as of this encounter
--- OUTSIDE RECORDS SUMMARY | 2023-02-05 23:45 | External Medical Summary | Summary of Care ---
Author Name Unknown Organization [place] [address] Phone Care Team Providers Care Meat Scrubber Name Role Phone Nimo Stewart MD Primary Care Provider [phone] Reason for Visit * Reason Comments MEDICATION REFILL Encounter Details Date Type Department Care Team Description 09/24/2017 Pharmacy [facility] [address] [facility], [address] [place] [address] Assistance, [facility], [facility] [address] [address] Encounter for medication refill* Allergies [...] [facility]) half tab daily 100 Tab 2 07/22/2017 [...] Diagnosis:Psoriatic Arthritis Patient is now in the [facility] of insurance and co-pay od RX has increased. Patient will pay for this month but would like to be enrolled for FREE DRUG program. Will mail application to patient andcontinue to look for assistance. [facility] Senior Energy Consultant [facility] 09/24/2017,12:36 PM in this encounter Plan of Treatment Upcoming Encounters Date Type Specialty Care Team Description 09/24/2017 Pharmacy Pharmacy Assistance, [facility], [address] [place] [address] [phone] Encounter for medication refill* 10/21/2017 Office Visit Rheumatology Nadeen Steiner MD [address] [facility], [place] [address] [phone] 10/21/2017 Pharmacy Pharmacy Medication, [facility] Refill, [address] [place] [address] [phone] 03/12/2018 Pharmacy Pharmacy Medication, [facility], [address] [address] [phone] Health Maintenance Due Date Last Done Comments [...] Type Phone Address MEDICARE REPLACEMENT [employer] PPO [id number] Medicar e as of this encounter
--- OUTSIDE RECORDS SUMMARY | 2023-02-05 23:45 | External Medical Summary | Summary of Care ---
Author Name Unknown Organization [place] [address] Phone Care Team Providers Care Business Support Professional Name Role Phone Nimo Stewart MD Primary Care Provider [phone] Reason for Visit * Reason Comments MEDICATION REFILL Encounter Details Date Type Department Care Team Description 09/23/2017 Pharmacy [facility] [address] [facility], 4th Floor [place] [address] Kolby Hilton, [facility] [address] [place] [address] Encounter for medication refill* Allergies Active Allergy [...] PredniSONE (MICHELLE) 5 MG TBECIndications:Psori atic arthritis ([facility]) 1 tab at 8 pm daily 30 Tab 5 07/22/2017 Active PredniSONE (DELTASONE) 10 MG TabletIndications:Pso riatic arthritis ([facility]) half tab daily 100 Tab 2 07/22/2017 Active traMADol (ULTRAM) 50 MG TabletIndications:Pso riatic arthritis ([facility]),Acute pain of both shoulders Take 2 Tabs by mouth every 6 hours as needed for Pain. 240 Tab 3 08/29/2017 Active as of this encounter Active Problems Problem Noted Date Body mass index (BMI) of 45.0 to 49.9 in adult ([facility]) 03/11/2017 Overview: Per Obesity protocol #1 Hyperlipidemia 09/17/2014 GERD (gastroesophageal reflux disease) 0 09/17/2014 Hypertension 09/17/2014 Psoriatic arthritis ([facility]) 09/17/2014 Overview: On Remicade 600 mg every 6 weeks Diabetes mellitus ([facility]) 09/17/2014 Diabetic neuropathy ([facility]) 09/17/2014 High risk medication use [...] as of this encounter Progress Notes * Kolby Hilton, [facility] - 09/23/2017 4:21 PM EDT [facility] REFILL CALL NOTE Sarwat Campbell [id number] Patient is a 72 year old male [...] payment options?:yes; patient verbalized understanding Medication shipped to:[address] [place] [address] Satisfaction survey: WILL SEND FOR PT ASSISTANCE Patient reminded that they will be receiving a telephone call from pharmacy to schedule their next refill when they have approximately 1 week of medication remaining. In the interim, patient advised to call pharmacy should they have any questions or concerns. Kolby Hilton, [facility] 09/23/2017, 4:21 PM in this encounter Plan of Treatment Upcoming Encounters Date Type Specialty Care Team Description 10/21/2017 Office Visit Rheumatology Nadeen Ste[place] MD [address] [place] [address] [phone] 03/12/2018 Pharmacy Pharmacy Medication, [facility], [facility] [address] [place] [address] [phone] Health Maintenance Due Date Last Done Comments [...] Type Phone Address MEDICARE REPLACEMENT [employer] PPO [id number] Medicar e as of this encounter
--- OUTSIDE RECORDS SUMMARY | 2023-02-05 23:45 | External Medical Summary | Summary of Care ---
Author Name Unknown Organization [place] [address] Phone Care Team Providers Care Disaster Recovery Specialist Name Role Phone Nimo Stewart MD Primary Care Provider [phone] Reason for Visit * Reason Comments MEDICATION REFILL Encounter Details Date Type Department Care Team Description 10/25/2017 Refill Rheumatology [place] [id number] [employer] [place] [address] Nadeen [place] MD [email or web address] [place] [id number] Psoriatic arthritis (HCC);Acute pain of both shoulders [...] PredniSONE (MICHELLE) 5 MG TBECIndications:Ps oriatic arthritis ([facility]) 1 tab at 8 pm daily 30 Tab 5 07/22/2017 Active PredniSONE (DELTASONE) 10 MG TabletIndications: Psoriatic arthritis ([facility]) half tab daily 100 Tab 3 10/10/2017 Active Apremilast (OTEZLA) 30 MG TABSIndications:PS A (psoriatic arthritis) ([facility]) Take 1 Tab by mouth 2 times a day. 60 Tab 5 10/10/2017 Active traMADol (ULTRAM) 50 MG TabletIndications: Psoriatic arthritis ([facility]),Acute pain of both shoulders Take 2 Tabs by mouth every 6 hours as needed for Pain. 240 Tab 3 10/25/2017 Active traMADol (ULTRAM) 50 MG TabletIndications: Psoriatic arthritis ([facility]),Acute pain of both shoulders Take 2 Tabs by mouth every 6 hours as needed for Pain. 240 Tab 3 08/29/2017 8 Discontinued as of this encounter Active Problems Problem Noted Date Body mass index (BMI) of 45.0 to 49.9 in adult ([facility]) 03/11/2017 Overview: Per Obesity protocol #1 Hyperlipidemia 09/17/2014 GERD (gastroesophageal reflux disease) 0 09/17/2014 Hypertension 09/17/2014 Psoriatic arthritis ([facility]) 09/17/2014 Overview: On Remicade 600 mg every 6 weeks Diabetes mellitus ([facility]) 09/17/2014 Diabetic neuropathy ([facility]) 09/17/2014 High risk medication use [...] Drug Monitoring Program in compliance with the [facility] regulations before prescribing a controlled substance. * [...] K21.9 Hypertension I10 Psoriatic arthritis ([facility]) L40.50 Diabetes mellitus (HCC) E11.9 Diabetic neuropathy ([facility]) E11.40 High risk medication use Z79.899 CKD (chronic kidney disease) stage 2, GFR 60-89 ml/min N18.2 Generalized osteoarthritis M15.9 Body mass index (BMI) of 45.0 to 49.9 in adult ([facility]) Z68.42 Labs: CREATININE-OUTSIDE LAB(MG/DL) Raymon Dt/Tm [...] regarding this medication. Thank you, Ally Ibarra Community Outreach Specialist Pharmacy Refill Call Center 10/25/2017, 10:47 AM in this encounter Plan of Treatment Upcoming Encounters Date Type Specialty Care Team Description 11/19/2017 Pharmacy Pharmacy Medication, [facility] Refill, [facility] [address] [address] [phone] 12/30/2017 Office Visit Rheumatology Nadeen [place] MD [facility] [place] [address] [phone] 03/12/2018 Pharmacy Pharmacy Medication, [facility], [address] [address] [phone] Health Maintenance Due Date Last Done Comments [...]
--- OUTSIDE RECORDS SUMMARY | 2023-02-05 23:46 | External Medical Summary | Summary of Care ---
Author Name Unknown Organization [place] [address] Phone Care Team Providers Care Clip Loading Machine Feeder Name Role Phone Cedric Chacko MD Primary Care Provi frank Reason for Visit * Reason Comments MEDICATION REFILL Medication Management Encounter Details Date Type Department Care Team Description 06/07/2017 Pharmacy [facility] [address] [facility], [address] [place] [address] Medication, [facility], [facility] [address] [address] Encounter for medication refill* Allergies [...] Tablet 1 tab twice daily 07/13/2016 Active pantoprazole (PROTONIX) 20 MG TBEC TAKE 1 TABLET BY MOUTH ONCE DAILY BEFORE BREAKFAST. 90 Tab 1 11/13/2016 Active traMADol (ULTRAM) 50 MG TabletIndications:Psor iatic arthritis (HCC),Generalized osteoarthritis Take 1 Tab by mouth every 6 hours as needed for Pain. 120 Tab 3 03/11/2017 Active metFORMIN (GLUCOPHAGE) 500 MG Tablet 2 tabs daily 03/07/2017 Active clobetasol propionate (TEMOVATE) 0.05 % ointment As needed 01/30/2017 Active Apremilast (OTEZLA) 30 MG TABSIndications:PSA (psoriatic arthritis) ([facility]) Take 1 Tab by mouth 2 times a day. 60 Tab 5 03/25/2017 Active omeprazole (PRILOSEC) 20 MG CPDR 1 tab daily 04/16/2017 Active oxyCODONE-acetaminophe n 5-325 mg per tab (PERCOCET) 5-325 MG per tablet As needed 04/16/2017 Active triamcinolone acetonide (ARISTOCORT) 0.1 % cream As directed 04/02/2017 Active PredniSONE (DELTASONE) 10 MG TabletIndications:Psor iatic arthritis ([facility]) 1 tab daily until 05/09/17, then take half tab daily 100 Tab 2 04/25/2017 Active as of this encounter Active Problems Problem Noted Date Body mass index (BMI) of 45.0 to 49.9 in adult ([facility]) 03/11/2017 Overview: Per Obesity protocol #1 Hyperlipidemia 09/17/2014 GERD (gastroesophageal reflux disease) 0 09/17/2014 Hypertension 09/17/2014 Psoriatic arthritis ([facility]) 09/17/2014 Overview: On Remicade 600 mg every 6 weeks Diabetes mellitus ([facility]) 09/17/2014 Diabetic neuropathy ([facility]) 09/17/2014 High risk medication use 09/17/2014 CKD [...] of this encounter Progress Notes * Matt Meza [facility] - 06/13/2017 10:02 AM EST Medication Therapy Management Specialty Pharmacy Re-Assessment Note Name: Sarwat Campbell Patient is a 72 year old male presently on a medication regimen of OTEZLA for psoriasis. Current medication regimen for above noted indication: OTEZLA Date of initiation of present therapy: approximately 3 MONTHS AGO. Is this a new therapy? yes Stop date for present therapy: not applicable at this time. Side effects: Is patient experiencing any side effects so bothersome that patient is considering discontinuing medication? no What does patient do when he has these side effects? N/A Assessment of education: thorough understanding. Education provided [...] reviewed: No. Imaging studies reviewed: No Other: N/A. Patient account of regiment effectiveness: improvement in condition/symptoms. Recent hospitalization/ER for above noted condition: no. Disease in remission or cured: not applicable Medication Shipment Information: Prior authorization date: not applicable. Discussed delivery procedure? yes; patient verbalized understanding. Discussed refill procedure? yes; patient verbalized understanding. Discussed copay of prescription? yes; patient verbalized understanding. Discussed payment options? yes; patient verbalized understanding. Shipment date: 06/19/2017. Medication to be shipped to: [address] [place] [id number] Matt Meza [facility] Clinical Pharmacist 06/13/2017, 10:02 AM * Matt Meza [facility] - 06/07/2017 1:21 PM EST OTEZLA FOLLOW UP LEFT VOICEMAIL Matt Meza [facility], PharmD Specialty Medication Pharmacist [facility] 06/07/2017,1:21 PM in this encounter Plan of Treatment Upcoming Encounters Date Type Specialty Care Team Description 07/15/2017 Pharmacy [facility] Medication[facility], [address] [place] [address] [phone] 07/22/2017 Office Visit Rheumatology Nadeen [place] MD [address] [place] [address] [phone] 03/12/2018 Pharmacy [facility]acy Medication[facility], [address] [place] [address] [phone] Health Maintenance Due Date Last Done Comments Yearly B-12 1943 DIABETES-EYE EXAM 1961 DIABETES-FOOT EXAM 1961 DIABETES-HGBA1C EVERY 6 MONTHS 1961 DIABETES-LDL EVERY 12 MONTHS 1961 DIABETES-URINE MICROALBUMIN EVERY 12 MONTHS 1961 PNEUMOCOCCAL ADULT 65 YRS AND OVER (1 of 2 - PCV13) TETANUS EVERY 10 YEARS-TDAP (BOOSTRIX OR ADACEL) SUGGESTED IF NOT RECEIVED IN THE PAST. 2008 COLONOSCOPY-EVERY 5 YRS AGES 18-100 01/04/201401/04 *ADVANCE [...] Subscriber ID Type Phone Address MEDICARE REPLACEMENT ANA PPO [id number] Medicar e as of this encounter
--- OUTSIDE RECORDS SUMMARY | 2023-02-05 23:46 | External Medical Summary | Summary of Care ---
Author Name Unknown Organization [place] [address] Phone Care Team Providers Care Commissary Worker Name Role Phone Cedric Chacko MD Primary Care Provi frank Encounter Details Date Type Department Care Team Description 04/05/2017 Result Scan Rheumatology [address] [place] [address] Nadeen Steiner MD [facility] [place] [address] <No scans attached> Allergies Active Allergy [...] 1 11/13/2016 Active traMADol (ULTRAM) 50 MG TabletIndications:Pso riatic arthritis (HCC),Generalized osteoarthritis Take 1 Tab by mouth every 6 hours as needed for Pain. 120 Tab 3 03/11/2017 Active metFORMIN (GLUCOPHAGE) 500 MG Tablet 2 tabs daily 03/07/2017 Active clobetasol propionate (TEMOVATE) 0.05 % ointment As needed 01/30/2017 Active PredniSONE (DELTASONE) 10 MG TabletIndications:Pso riatic arthritis ([facility]) 4 tabs daily for 5 day then 3 tabs daily for 5 days then 2 tabs for 5 days then 1 tab daily until seen 100 Tab 2 03/21/2017 Active Apremilast (OTEZLA) 30 MG TABSIndications:PSA (psoriatic arthritis) ([facility]) Take 1 Tab by mouth 2 times a day. 60 Tab 5 03/25/2017 Active Apremilast (OTEZLA) 10 & 20 & 30 MG TBPKIndications:PSA (psoriatic arthritis) ([facility]) As directed on package 1 Package 0 03/25/2017 Active as of this encounter Active Problems Problem Noted Date Body mass index (BMI) of 45.0 to 49.9 in adult ([facility]) 03/11/2017 Overview: Per Obesity protocol #1 Hyperlipidemia 09/17/2014 GERD (gastroesophageal reflux disease) 0 09/17/2014 Hypertension 09/17/2014 Psoriatic arthritis ([facility]) 09/17/2014 Overview: On Remicade 600 mg every 6 weeks Diabetes mellitus ([facility]) 09/17/2014 Diabetic neuropathy ([facility]) 09/17/2014 High risk medication use 09/17/2014 [...] Encounters Date Type Specialty Care Team Description 04/19/2017 Pharmacy Pharmacy Medication, [facility] Refill, [address] [place] [address] 04/25/2017 Office Visit Rheumatology Nadeen Steiner MD [address] [facility], [place] [id number] 06/07/2017 Pharmacy Pharmacy Medication, [facility], [address] [place] [address] [phone] Health Maintenance Due Date Last Done Comments DIABETES-EYE EXAM 1963 DIABETES-FOOT EXAM 1963 DIABETES-HGBA1C [...] this encounter Results * OUTSIDE LAB RESULTS (04/05/2017) in this encounter Insurance Payer Benefit Plan / Group Subscriber ID Type Phone Address MEDICARE REPLACEMENT ANA JOSÉO [id number] Medicar e as of this encounter
--- OUTSIDE RECORDS SUMMARY | 2023-02-05 23:46 | External Medical Summary | Summary of Care ---
Author Name Unknown Organization [place] [address] Phone Care Team Providers Care Correctional Supply Supervisor Name Role Phone Cedric Chacko MD Primary Care Provi frank Reason for Visit * Reason Comments MEDICATION REFILL Encounter Details Date Type Department Care Team Description 04/19/2017 Pharmacy [facility], 4th Floor [place], [place] [id number] Medication, [facility] Specialty Refill, [facility] [address] [address] Encounter for medication refill* Allergies [...] (DELTASONE) 10 MG TabletIndications:Pso riatic arthritis ([facility]) 4 tabs daily for 5 day then 3 tabs daily for 5 days then 2 tabs for 5 days then 1 tab daily until seen 100 Tab 2 03/21/2017 Active Apremilast (OTEZLA) 30 MG TABSIndications:PSA (psoriatic arthritis) ([facility]) Take 1 Tab by mouth 2 times a day. 60 Tab 5 03/25/2017 Active Apremilast (OTEZLA) 10 & 20 & 30 MG TBPKIndications:PSA (psoriatic arthritis) ([facility]) As directed on package 1 Package 0 03/25/2017 Active as of this encounter Active Problems Problem Noted Date Body mass index (BMI) of 45.0 to 49.9 in adult ([facility]) 03/11/2017 Overview: Per Obesity protocol #1 Hyperlipidemia 09/17/2014 GERD (gastroesophageal reflux disease) 0 09/17/2014 Hypertension 09/17/2014 Psoriatic arthritis ([facility]) 09/17/2014 Overview: On Remicade 600 mg every 6 weeks Diabetes mellitus ([facility]) 09/17/2014 Diabetic neuropathy ([facility]) 09/17/2014 High risk medication use 09/17/2014 CKD [...] of this encounter Progress Notes * Ranjit Mayes OSA - 04/19/2017 11:20 AM EST Sent via [facility] 04/25/2017 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 Spoke to patient INCOMING Does patient have any questions regarding medication(s)? no Is patient having difficulty taking medication(s) as prescribed? no Does patient have any concerns or complaints regarding possible side effects of medication(s)? no How much medication does patient have left in present supply? 4 day supply Would patient like to schedule refill of medication today which will be shipped when patient has approximately 1 week left on present supply? yes Shipment date: 04/25/17 Delivery method:UPS Discussed copay of prescription?:yes; patient verbalized understanding Discussed outstanding balance?:no Discussed payment options?:NO Medication shipped to:[address] [place] [address] Satisfaction survey: NA Patient reminded that they will be receiving a telephone call from pharmacy to schedule their next refill when they have approximately 1 week of medication remaining. In the interim, patient advised to call pharmacy should they have any questions or concerns. NINA Morales 04/23/2017, 8:59 AM in this encounter Plan of Treatment Upcoming Encounters Date Type Specialty Care Team Description 04/25/2017 Office Visit Rheumatology Nadeen Steiner MD [address] [place] [address] [phone] 05/17/2017 Pharmacy Pharmacy Medication, [facility] Refill, [address] [address] [phone] 06/07/2017 Pharmacy Pharmacy Medication, [facility], [address] [address] [phone] Health Maintenance Due Date Last Done Comments [...] ID Type Phone Address MEDICARE REPLACEMENT ANA O [id number] Medicar e as of this encounter
--- OUTSIDE RECORDS SUMMARY | 2023-02-05 23:46 | External Medical Summary | Summary of Care ---
Author Name Unknown Organization [place] [address] Phone Care Team Providers Care Chro Name Role Phone Cedric Chacko MD Primary Care Provi frank Reason for Visit * Reason Comments MEDICATION REFILL Medication Management Encounter Details Date Type Department Care Team Description 06/07/2017 Pharmacy [facility] 25 [facility], [address] [place] [address] Medication, [facility] Specialty, [facility] [address] [address] Encounter for medication refill* Allergies [...] PredniSONE (DELTASONE) 10 MG TabletIndications:Psor iatic arthritis ([facility]) 1 tab daily until 05/09/17, then take [...] this encounter Progress Notes * Matt Meza RPh - 06/07/2017 1:21 PM EST OTEZLA FOLLOW UP LEFT VOICEMAIL Matt Meza [facility], PharmD Specialty Medication Pharmacist [facility] 06/07/2017,1:21 PM in this encounter Plan of Treatment Upcoming Encounters Date Type Specialty Care Team Description 06/14/2017 Pharmacy Pharmacy Medication, [facility], [address] [place] [address] [phone] 07/22/2017 Office Visit Rheumatology Nadeen Steiner MD [address] [facility], [place] [address] [phone] Health Maintenance Due Date Last Done Comments [...] Type Phone Address MEDICARE REPLACEMENT [employer] PPO [id number] Medicar e as of this encounter
--- OUTSIDE RECORDS SUMMARY | 2023-02-05 23:46 | External Medical Summary | Summary of Care ---
Author Name Unknown Organization [place] [address] Phone Care Team Providers Care Floral Decorator Name Role Phone Cedric Chacko MD Primary Care Provi frank Reason for Visit * Reason Comments MEDICATION REFILL Encounter Details Date Type Department Care Team Description 05/17/2017 Pharmacy [facility] 25 [facility], 4th Floor [place], [place] [id number] Medication, [facility] Specialty Refill, [facility] [address] [address] Encounter for medication refill* Allergies [...] Apremilast (OTEZLA) 30 MG TABSIndications:PSA (psoriatic arthritis) ([facility]) Take 1 Tab by mouth 2 times a day. 60 Tab 5 03/25/2017 Active omeprazole (PRILOSEC) 20 MG CPDR 1 tab daily 04/16/2017 Active oxyCODONE-acetaminophe n 5-325 mg per tab (PERCOCET) 5-325 MG per tablet As needed 04/16/2017 Active triamcinolone acetonide (ARISTOCORT) 0.1 % cream As directed 04/02/2017 Active PredniSONE (DELTASONE) 10 MG TabletIndications:Psor iatic arthritis ([facility]) 1 tab daily until 05/09/17, then take half tab daily 100 Tab 2 04/25/2017 Active as of this encounter Active Problems Problem Noted Date Body mass index (BMI) of 45.0 to 49.9 in adult ([facility]) 03/11/2017 Overview: Per Obesity protocol #1 Hyperlipidemia 09/17/2014 GERD (gastroesophageal reflux disease) 0 09/17/2014 Hypertension 09/17/2014 Psoriatic arthritis ([facility]) 09/17/2014 Overview: On Remicade 600 mg every 6 weeks Diabetes mellitus ([facility]) 09/17/2014 Diabetic neuropathy ([facility]) 09/17/2014 High risk medication use [...] of this encounter Progress Notes * Elayne Hebert OSA - 05/17/2017 2:40 PM [facility] REFILL CALL NOTE Sarwat Campbell [id number] Patient is a 72 year old male on the schedule today for a telephone call concerning their refill ofOTEZLA. Spoke to spouse; consent on file Does patient have any questions regarding medication(s)? yes; patient referred to pharmacist for intervention Is patient having difficulty taking medication(s) as prescribed? no Does patient have any concerns or complaints regarding possible side effects of medication(s)? no How much medication does patient have left in present supply? 18 tablets/capsules Would patient like to schedule refill of medication today which will be shipped when patient has approximately 1 week left on present supply? yes Shipment date: 05/23/2017 Delivery method:UPS Discussed copay of prescription?:yes; patient verbalized understanding Discussed outstanding balance?:no Discussed payment options?:no Medication shipped to:[address] [place] [address] Satisfaction survey: N/A Patient reminded that they will be receiving a telephone call from pharmacy to schedule their next refill when they have approximately 1 week of medication remaining. In the interim, patient advised to call pharmacy should they have any questions or concerns. LIDYA Mack 05/17/2017, 11:28 AM in this encounter Plan of Treatment Upcoming Encounters Date Type Specialty Care Team Description 05/17/2017 Pharmacy Pharmacy Medication, [facility] Specialty Refill, [address] [address] Encounter for medication refill* 06/07/2017 Pharmacy Pharmacy Medication, [facility], [address] [address] 06/14/2017 Pharmacy Pharmacy Medication, [facility]ill, [address] [address] 07/22/2017 Office Visit Rheumatology Nadeen Steiner MD [address] [place] [address] Health Maintenance Due Date Last Done [...] Type Phone Address MEDICARE REPLACEMENT ANA PPO [id number] Medicar e as of this encounter
--- OUTSIDE RECORDS SUMMARY | 2023-02-05 23:46 | External Medical Summary | Summary of Care ---
Author Name Unknown Organization [place] [address] Phone Care Team Providers Care Visual Designer Name Role Phone Cedric Chacko MD Primary Care Provi frank Reason for Visit * Reason Comments MEDICATION REFILL Encounter Details Date Type Department Care Team Description 05/17/2017 Pharmacy [facility] 25 [facility], 4th Floor [place], [place] [phone] Medication, [facility] Specialty Refill, [facility] [address] [address] Encounter for medication refill* Allergies [...] arthritis) ([facility]) Take 1 Tab by mouth 2 times a day. 60 Tab 5 03/25/2017 Active omeprazole (PRILOSEC) 20 MG CPDR 1 tab daily 04/16/2017 Active oxyCODONE-acetaminophe n 5-325 mg per tab (PERCOCET) 5-325 MG per tablet As needed 04/16/2017 Active triamcinolone acetonide (ARISTOCORT) 0.1 % cream As directed 04/02/2017 Active PredniSONE (DELTASONE) 10 MG TabletIndications:Psor iatic arthritis ([facility]) 1 tab daily until 05/09/17, then take half tab daily 100 Tab 2 04/25/2017 Active as of this encounter Active Problems Problem Noted Date Body mass index (BMI) of 45.0 to 49.9 in adult ([facility]) 03/11/2017 Overview: Per Obesity protocol #1 Hyperlipidemia 09/17/2014 GERD (gastroesophageal reflux disease) 0 09/17/2014 Hypertension 09/17/2014 Psoriatic arthritis ([facility]) 09/17/2014 Overview: On Remicade 600 mg every 6 weeks Diabetes mellitus ([facility]) 09/17/2014 Diabetic neuropathy ([facility]) 09/17/2014 High risk medication use 09/17/2014 [...] this encounter Progress Notes * Valerio Strong OSA - 05/17/2017 2:40 PM EST SHIPPED VIA [facility] 05/23/17 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 In the interim, patient advised to call pharmacy should they have any questions or concerns. LIDYA Mack 05/17/2017, 11:28 AM in this encounter Plan of Treatment Upcoming Encounters Date Type Specialty Care Team Description 06/07/2017 Pharmacy Pharmacy Medication, [facility], [address] [address] 06/14/2017 Pharmacy Pharmacy Medication, [facility] Refill, [address] [address] 07/22/2017 Office Visit Rheumatology Nadeen Steiner MD [address] [facility], [place] [address] [phone] Health Maintenance Due Date Last Done Comments [...] Type Phone Address MEDICARE REPLACEMENT ANA PPO [id number] Medicar e as of this encounter
--- OUTSIDE RECORDS SUMMARY | 2023-02-05 23:46 | External Medical Summary | Summary of Care ---
Author Name Unknown Organization [place] [address] Phone Care Team Providers Care Geomorphology Teacher Name Role Phone Cedric Chacko MD Primary Care Provi frank Reason for Visit * Reason Comments Rheum Follow Up 3 month recheck Encounter Details Date Type Department Care Team Description 07/22/2017 Office Visit Rheumatology [place] [address] [place] [address] Nadeen Steiner MD [address] [place] [id number] Psoriatic arthritis (HCC)*;Encounter for long-term (current) use of high-risk medication;MGUS (monoclonal gammopathy of unknown significance);Generaliz ed osteoarthritis Allergies Active Allergy Reactions Severity Noted [...] daily 07/13/2016 Active traMADol (ULTRAM) 50 MG TabletIndications:Ps oriatic arthritis (HCC),Generalized osteoarthritis Take 1 Tab by mouth every 6 hours as needed for Pain. 120 Tab 3 03/11/2017 Active metFORMIN (GLUCOPHAGE) 500 MG Tablet 2 tabs daily 03/07/2017 Active clobetasol propionate (TEMOVATE) 0.05 % ointment As needed 01/30/2017 Active Apremilast (OTEZLA) 30 MG TABSIndications:PSA (psoriatic arthritis) ([facility]) Take 1 Tab by mouth 2 times a day. 60 Tab 5 03/25/2017 Active triamcinolone acetonide (ARISTOCORT) 0.1 % cream As directed 04/02/2017 Active omeprazole (PRILOSEC) 20 MG CPDR TAKE 1 CAPSULE BY MOUTH DAILY 90 Cap 1 07/05/2017 Active PredniSONE (MICHELLE) 5 MG TBECIndications:Psor iatic arthritis ([facility]) 1 tab at 8 pm daily 30 Tab 5 07/22/2017 Active PredniSONE (DELTASONE) 10 MG TabletIndications:Ps oriatic arthritis ([facility]) half tab daily 100 Tab 2 07/22/2017 Active oxyCODONE-acetaminop hen 5-325 mg per tab (PERCOCET) 5-325 MG per tablet As needed 04/16/2017 8 Discontinued PredniSONE (DELTASONE) 10 MG TabletIndications:Ps oriatic arthritis ([facility]) 1 tab daily until 05/09/17, then take half tab daily 100 Tab 2 04/25/2017 8 Discontinued as of this encounter Active Problems Problem Noted Date Body mass index (BMI) of 45.0 to 49.9 in adult ([facility]) 03/11/2017 Overview: Per Obesity protocol #1 Hyperlipidemia 09/17/2014 GERD (gastroesophageal reflux disease) 0 09/17/2014 Hypertension 09/17/2014 Psoriatic arthritis ([facility]) 09/17/2014 Overview: On Remicade 600 mg every 6 weeks Diabetes mellitus ([facility]) 09/17/2014 [...] Vital Sign Reading Time Taken Blood Pressure 150/58 07/22/2017 2:05 PM EST Pulse - - Temperature 37.1 C (98.7 F) 07/22/2017 2 :05 PM EST Respiratory Rate - - Oxygen Saturation - - Inhaled Oxygen Concentration - - Weight 134.3 kg (296 lb) 07/22/2017 2:0 5 PM EST Height - - Body Mass Index 47.78 07/22/2017 2:05 PM EST in this encounter Instructions * Patient Instructions - Nadeen Steiner MD - 07/22/2017 2:37 PM EST 1. Stay on prednisone 5 mg in the morning and the Otezla 2. Start Michelle (timed release prednisone). Take this new medicine at 8 pm every evening. 3. Call me in 1-2 weeks to update me on your consideration 4. If the above does not help, we will switch you to Cosentyx. 5. If you are still having pain in your left shoulder call me and I can give you an injection on Saturday. in this encounter Progress Notes * Nadeen Steiner MD - 07/22/2017 2:09 PM EST Formatting of this note may be different from the original. Reason for visit: Mr. Campbell returns to clinic today for ongoing evaluation and treatment of psoriatic arthritis. He was last seen in clinic on 04/25/2017. He is accompanied by his who provides some of the history. Inflammatory disease: Diagnosis date: Past treatments: steroids, methotrexate, Enbrel, Remicade (1999-August 2016) discontinued due to persistent transaminitis and diagnosis of MGUS Current regimen: Otezla, prednisone 5 mg daily History of present illness: Since the time of his last evaluation, he reports severe pain in all his joints. His pain is worse in the mornings. He requires help from his to get dressed. Pain does not improve until 2:00 p.m. He has been using 2 tabs of tramadol for pain control every 6 hours inaddition to Advil. His left shoulder has been very bothersome recently. He could not sleep last night because of the pain. He reports swelling of his hands often swell in the mornings. The Otezla does not seem to be as helpful as it was in the beginning. He has bene on Otezla since March. He remains on prednisone 5 mg daily. His psoriasis has improved with the Otezla as he only has a small patch on the right elbow. Most recent labs from last week showed no evidence of medication toxicity. His white count was mildly elevated at 13.26 He denies any interval infections, hospitalizations, or surgeries. 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 Hyperlipidemia E78.5 GERD (gastroesophageal reflux disease) K21.9 Hypertension I10 Psoriatic arthritis ([facility]) L40.50 Diabetes mellitus ([facility]) E11.9 Diabetic neuropathy ([facility]) E11.40 High risk medication use Z79.899 CKD (chronic kidney disease) stage 2, GFR 60-89 ml/min N18.2 Generalized osteoarthritis M15.9 Body mass index (BMI) of 45.0 to 49.9 in adult ([facility]) Z68.42 Past medical history: Reviewed and [...] Current Outpatient Prescriptions Medication Sig Dispense Refill omeprazole (PRILOSEC) 20 MG CPDR TAKE 1 CAPSULE BY MOUTH DAILY 90 Cap 1 oxyCODONE-acetaminophen 5-325 mg per tab (PERCOCET) 5-325 MG per tablet As needed triamcinolone acetonide (ARISTOCORT) 0.1 % cream As directed PredniSONE (DELTASONE) 10 MG Tablet 1 tab daily until 05/09/17, then take half tab daily 100 Tab 2 Apremilast (OTEZLA) 30 MG TABS Take 1 Tab by mouth 2 times a day. 60 Tab 5 metFORMIN (GLUCOPHAGE) 500 MG Tablet 2 tabs daily clobetasol propionate (TEMOVATE) 0.05 % ointment As needed traMADol (ULTRAM) 50 MG Tablet Take 1 Tab by mouth every 6 hours as needed for Pain. 120 Tab 3 glimepiride (AMARYL) 4 MG Tablet 1 tab twice daily amLODIPine (NORVASC) 10 MG Tablet 1 daily Lisinopril 40 MG Tablet 1 tab daily metoprolol tartrate (LOPRESSOR) 100 MG Tablet 1 tab twice daily amoxicillin (AMOXIL) 500 MG Capsule For dental procedures Aspirin 81 MG Tablet 1 daily Cholecalciferol (VITAMIN D) 1000 UNIT Capsule 1 daily Examination: Vital signs: BP 150/58 | Temp (Src) 98.7 (Tympanic) | Wt 296 lbs (134.265kg) | BMI 47.78 kg/m | BSA 2.5 m General: Well developed, well nourished and in no acute distress. Skin: Small psoriatic patch on right elbow Chest: Clear to ascultation bilaterally with no wheezing, rales, or rhonchi. Heart: Rate regular and rhythm with normal S1 and S2. No murmurs, rubs or gallops. Extremities: No edema. Normal pulses. Musculoskeletal: Synovitis: None Tender joints: Left shoulder Diagnostic data reviewed Outside labs from 07/16/2017 WBC 13.26, hemoglobin 11.4, hematocrit 36.4, platelets 296,000 Creatinine 0.84, AST 16, ALT 26, alk-phos 54, albumin 3.2, total protein 8.2 Assessment: ICD-10-CM 1. Psoriatic arthritis (HCC) L40.50 2. Encounter for long-term (current) use of high-risk medication Z79.899 3. MGUS (monoclonal gammopathy of unknown significance) D47.2 4. Generalized osteoarthritis M15.9 Mr. Campbell returns today for management of psoriatic arthritis. His psoriasis has improved in addition to his joint swelling. He has significant morning stiffness and pain which may be remitted by adding a time release prednisone to his regimen. It appears that Michelle is covered by his insurance. If symptoms do not improve, next step would be to switch to Cosentyx. Plan: 1. Discussed the above in detail with the patient and his . All questions were answered. 2. Prescription for Michelle 5 mg to be taken at 8 pm daily. 3. Continue Otezla and AM prednisone. 4. Continue tramadol as needed for pain. 5. If left shoulder pain persists, he can contact me by the end of this week for a local corticosteroid injection. 6. He was encouraged to contact me with any questions or concerns. 7. Follow Up: Return in about 3 months (around 10/19/2017). Nadeen Steiner MD PhD Rheumatology CC: Cedric Chacko MD in this encounter Nursing Notes * Van Smith, INTERVENTIONIST - 07/22/2017 2:04 PM EST Formatting of this note may be different from the original. Chief Complaint Patient presents with Rheum Follow Up 3 month recheck in this encounter Plan of Treatment Upcoming Encounters Date Type Specialty Care Team Description 08/13/2017 Pharmacy Pharmacy Medication, [facility]ill, [address] [address] [phone] 10/21/2017 Office Visit Rheumatology Nadeen Steiner MD [address] [facility], [place] [id number] 03/12/2018 Pharmacy Pharmacy Medication, [facility], [address] [address] [phone] Health Maintenance Due Date Last Done Comments [...] (monoclonal gammopathy of unknown significance) Monoclonal paraproteinemia Generalized osteoarthritis Generalized osteoarthrosis, unspecified site in this encounter Insurance Payer Benefit Plan / Group Subscriber ID Type Phone Address MEDICARE REPLACEMENT [employer] PPO [id number] Medicar e as of this encounter"
--- OUTSIDE RECORDS SUMMARY | 2023-02-05 23:46 | External Medical Summary | Summary of Care ---
Author Name Unknown Organization [place] [address] Phone Care Team Providers Care Flap Presser Name Role Phone Cedric Chacko MD Primary Care Provi frank Reason for Visit * Reason Comments MEDICATION REFILL Encounter Details Date Type Department Care Team Description 07/15/2017 Pharmacy [facility] [address] [facility], 4th Floor [place], [place] [id number] Medication, [facility] Refill, [facility] [address] [address] Encounter for medication refill* [...] 30 MG TABSIndications:PSA (psoriatic arthritis) ([facility]) Take 1 Tab by mouth 2 times a day. 60 Tab 5 03/25/2017 Active oxyCODONE-acetaminophe n 5-325 mg per tab (PERCOCET) 5-325 MG per tablet As needed 04/16/2017 Active triamcinolone acetonide (ARISTOCORT) 0.1 % cream As directed 04/02/2017 Active PredniSONE (DELTASONE) 10 MG TabletIndications:Psor iatic arthritis ([facility]) 1 tab daily until 05/09/17, then take half tab daily 100 Tab 2 04/25/2017 Active omeprazole (PRILOSEC) 20 MG CPDR TAKE 1 CAPSULE BY MOUTH DAILY 90 Cap 1 07/05/2017 Active as of this encounter Active Problems Problem Noted Date Body mass index (BMI) of 45.0 to 49.9 in adult ([facility]) 03/11/2017 Overview: Per Obesity protocol #1 Hyperlipidemia 09/17/2014 GERD (gastroesophageal reflux disease) 0 09/17/2014 Hypertension 09/17/2014 Psoriatic arthritis ([facility]) 09/17/2014 Overview: On Remicade 600 mg every 6 weeks Diabetes mellitus ([facility]) 09/17/2014 Diabetic neuropathy ([facility]) 09/17/2014 High risk medication use [...] Progress Notes * Ranjit Mayes OSA - 07/17/2017 3:40 PM EST Sent via [facility] 07/18/2017 Ranjit Mayes Circulation Sales Representative II [facility] * Erin Beavers TECH - 07/15/2017 11:44 AM EST [facility] REFILL CALL NOTE Sarwat Campbell [id number] Patient is a 72 year old male on the schedule today for a telephone call concerning their refill ofOTEZLA. Spoke to Does patient have any questions regarding medication(s)? no Is patient having difficulty taking medication(s) as prescribed? no Does patient have any concerns or complaints regarding possible side effects of medication(s)? no How much medication does patient have left in present supply? ~1.5 WEEK Would patient like to schedule refill of medication today which will be shipped when patient has approximately 1 week left on present supply? yes Shipment date: 07/18/17 Delivery method:UPS Discussed copay of prescription?:yes; patient verbalized understanding $50 Discussed outstanding balance?:no Discussed payment options?:no Medication shipped to:[address] [place] [address] Satisfaction survey: NA Patient reminded that they will be receiving a telephone call from pharmacy to schedule their next refill when they have approximately 1 week of medication remaining. In the interim, patient advised to call pharmacy should they have any questions or concerns. NINA Morales 07/15/2017, 11:44 AM in this encounter Plan of Treatment Upcoming Encounters Date Type Specialty Care Team Description 07/22/2017 Office Visit Rheumatology [place]adeen Steiner MD [address] [place] [address] [phone] 08/13/2017 Pharmacy Pharmacy Medication, [facility] Refill, [address] [address] [phone] 03/12/2018 Pharmacy Pharmacy Medication, [facility], [address] [address] [phone] Health Maintenance Due Date Last Done Comments [...] Type Phone Address MEDICARE REPLACEMENT [employer] PPO [id number] Medicar e as of this encounter
--- OUTSIDE RECORDS SUMMARY | 2023-02-05 23:46 | External Medical Summary | Summary of Care ---
Author Name Unknown Organization [place] [address] Phone Care Team Providers Care Refrigerated Cargo Clerk Name Role Phone Cedric Chacko MD Primary Care Provi frank Reason for Visit * Reason Comments MEDICATION REFILL Medication Management Encounter Details Date Type Department Care Team Description 06/07/2017 Pharmacy [facility] [address] [facility] [place] [address] Medication, [facility], [facility] [address] [address] Encounter for medication refill* Allergies [...] 30 MG TABSIndications:PSA (psoriatic arthritis) ([facility]) Take 1 Tab by mouth 2 times a day. 60 Tab 5 03/25/2017 Active omeprazole (PRILOSEC) 20 MG CPDR 1 tab daily 04/16/2017 Active oxyCODONE-acetaminophe n 5-325 mg per tab (PERCOCET) 5-325 MG per tablet As needed 04/16/2017 Active triamcinolone acetonide (ARISTOCORT) 0.1 % cream As directed 04/02/2017 Active PredniSONE (DELTASONE) 10 MG TabletIndications:Psor iatic arthritis ([facility]) 1 tab daily until 05/09/17, then [...] 6 weeks Diabetes mellitus ([facility]) [...] of this encounter Progress Notes * Valerio Strong, LIDYA - 06/19/2017 8:59 AM EST Shipped via [facility] 06/19/2017 OLIVE STRONG program engagement director [facility] 06/19/2017,8:59 AM * Matt Meza, [facility] - 06/13/2017 10:02 AM EST Medication Therapy [...] date: 06/19/2017. Medication to be shipped to: [address] [place] [id number] Matt Meza [facility] Clinical Pharmacist 06/13/2017, 10:02 AM * Matt Meza [facility] - 06/07/2017 1:21 PM EST OTEZLA FOLLOW UP LEFT VOICEMAIL Matt Meza [facility], PharmD Specialty Medication Pharmacist [facility] 06/07/2017,1:21 PM in this encounter Plan of Treatment Upcoming Encounters Date Type Specialty Care Team Description 07/15/2017 Pharmacy Pharmacy Medication, [facility], [address] [place] [address] 07/22/2017 Office Visit Rheumatology Nadeen Steiner MD [address] [place] [address] [phone] 03/12/2018 Pharmacy Pharmacy Medication, [facility], [address] [place] [address] [phone] Health Maintenance Due Date Last Done Comments [...] Type Phone Address MEDICARE REPLACEMENT [employer] PPO [id number] Medicar e as of this encounter
--- OUTSIDE RECORDS SUMMARY | 2023-02-05 23:46 | External Medical Summary | Summary of Care ---
Author Name Unknown Organization [place] [address] Phone Care Team Providers Care Pan Devulcanizer Name Role Phone Unavailable Primary Care Provider Unavailabl e Reason for Visit * Reason Comments ADVICE Encounter Details Date Type Department Care Team Description 07/26/2017 Telephone Rheumatology [place] [id number] [facility] [employer] [place] [id number] Nadeen Steiner MD [address] [place] [address] [phone] ADVICE Allergies Active Allergy Reactions Severity Noted [...] Apremilast (OTEZLA) 30 MG TABSIndications:PSA (psoriatic arthritis) ([facility]) Take 1 Tab by mouth 2 times a day. 60 Tab 5 03/25/2017 Active triamcinolone acetonide (ARISTOCORT) 0.1 % cream As directed 04/02/2017 Active omeprazole (PRILOSEC) 20 MG CPDR TAKE 1 CAPSULE BY MOUTH DAILY 90 Cap 1 07/05/2017 Active PredniSONE (MICHELLE) 5 MG TBECIndications:Psoria tic arthritis ([facility]) 1 tab at 8 pm daily 30 Tab 5 07/22/2017 Active PredniSONE (DELTASONE) 10 MG TabletIndications:Psor iatic arthritis ([facility]) half tab daily 100 Tab 2 07/22/2017 Active as of this encounter Active Problems Problem Noted Date Body mass index (BMI) of 45.0 to 49.9 in adult ([facility]) 03/11/2017 Overview: Per Obesity protocol #1 Hyperlipidemia 09/17/2014 GERD (gastroesophageal reflux disease) 0 09/17/2014 Hypertension 09/17/2014 Psoriatic arthritis ([facility]) 09/17/2014 Overview: On Remicade 600 mg every 6 weeks Diabetes mellitus ([facility]) 09/17/2014 Diabetic neuropathy ([facility]) 09/17/2014 High risk medication [...] Notes * Telephone Encounter - Jessie Allison LIDYA - 07/26/2017 1:08 PM EST scheduled * Telephone Encounter - Nadeen Steiner MD - 07/26/2017 1:03 PM EST Spoke to patient. He would like to come in for a steroid injection for ongoing left shoulder pain. Jessie please add him to my 3:40 time slot. Thanks. * Telephone Encounter - Heather Ogden LPN - 07/26/2017 12:[address] Steiner, do you know anything about this? * Telephone Encounter - Caitlyn Dunbar, LIDYA - 07/26/2017 12:33 PM EST Pt's calling in asking to speak with a nurse. Pt's is asking for a phone call back from anurse because there were supposed to be arrangements for pt to get an injection this morning. Please advise * Telephone Encounter - MccollLaya acosta, LIDYA - 07/26/2017 9:38 AM EST PTs calling in stating that the Tramadol is not giving the pt any relief. Pts stated thatDr. Steiner told them to call in if it was not helping by today. Please call them back to advise. Thank you in this encounter Plan of Treatment Upcoming Encounters Date Type Specialty Care Team Description 07/26/2017 Office Visit Rheumatology Nadeen Steiner MD [address] [place] [address] [phone] 08/13/2017 Pharmacy Pharmacy Medication, [facility], [address] [address] [phone] 10/21/2017 Office Visit Rheumatology Nadeen Steiner MD [address] [place] [address] [phone] 03/12/2018 Pharmacy Pharmacy Medication, [facility], [address] [address] [phone] Health Maintenance Due Date Last Done Comments Yearly B-12 1943 DTaP,Tdap,and Td Vaccines (1 - Tdap) 1950 DIABETES-EYE EXAM 1961 DIABETES-FOOT EXAM 1961 DIABETES-HGBA1C [...] Type Phone Address MEDICARE REPLACEMENT [employer] PPO [id number] Medicar e as of this encounter
--- OUTSIDE RECORDS SUMMARY | 2023-02-05 23:46 | External Medical Summary | Summary of Care ---
Author Name Unknown Organization [place] [address] Phone Care Team Providers Care Scheduling Specialist Name Role Phone Cedric Chacko MD Primary Care Provi frank Reason for Visit * Reason Comments eRx-Medication Refill Prilosec Encounter Details Date Type Department Care Team Description 07/03/2017 Refill Rheumatology [facility] [address] [place] [address] Nadeen Steiner MD [address] [place] [address] Allergies Active Allergy Reactions Severity Noted Date [...] Apremilast (OTEZLA) 30 MG TABSIndications:PSA (psoriatic arthritis) ([facility]) Take 1 Tab by mouth 2 times a day. 60 Tab 5 03/25/2017 Active oxyCODONE-acetaminop hen 5-325 mg per tab (PERCOCET) 5-325 MG per tablet As needed 04/16/2017 Active triamcinolone acetonide (ARISTOCORT) 0.1 % cream As directed 04/02/2017 Active PredniSONE (DELTASONE) 10 MG TabletIndications:Ps oriatic arthritis ([facility]) 1 tab daily until 05/09/17, then take half tab daily 100 Tab 2 04/25/2017 Active omeprazole (PRILOSEC) 20 MG CPDR TAKE 1 CAPSULE BY MOUTH DAILY 90 Cap 1 07/05/2017 Active pantoprazole (PROTONIX) 20 MG TBEC TAKE 1 TABLET BY MOUTH ONCE DAILY BEFORE BREAKFAST. 90 Tab 1 11/13/2016 8 Discontinued omeprazole (PRILOSEC) 20 MG CPDR 1 tab daily 04/16/2017 8 Discontinued as of this encounter Active Problems Problem Noted Date Body mass index (BMI) of 45.0 to 49.9 in adult ([facility]) 03/11/2017 Overview: Per Obesity protocol #1 Hyperlipidemia 09/17/2014 GERD (gastroesophageal reflux disease) 0 09/17/2014 Hypertension 09/17/2014 Psoriatic arthritis ([facility]) 09/17/2014 Overview: On Remicade 600 mg every 6 weeks Diabetes mellitus ([facility]) 09/17/2014 Diabetic neuropathy ([facility]) 09/17/2014 High risk medication use [...] Telephone Encounter - Nadeen Steiner MD - 07/05/2017 12:36 PM EST Signed Prescriptions: Disp Refills omeprazole (PRILOSEC) 20 MG CPDR 90 Cap 1 Sig: TAKE 1 CAPSULE BY MOUTH DAILY Authorizing Provider: NADEEN STEINER * Telephone Encounter - Heather Ogden LPN - 07/05/2017 8:27 AM EST Pending Prescriptions: Disp Refills omeprazole (PRILOSEC) 20 MG CPDR [Pharmac*90 Cap 1 Sig: TAKE 1 CAPSULE BY MOUTH DAILY * Telephone Encounter - Heather Ogden LPN - 07/05/2017 8:26 AM EST Called and spoke with pt's . He is going to stay on the Prilosec and not take the Protonix. * Telephone Encounter - Nadeen Steiner MD - 07/04/2017 4:30 PM EST Pending Prescriptions: Disp Refills omeprazole (PRILOSEC) 20 MG CPDR [Pharmac*90 Cap 1 Sig: TAKE 1 CAPSULE BY MOUTH DAILY * Telephone Encounter - Nadeen Steiner MD - 07/04/2017 4:29 PM EST Pantoprazole is on the patient's medication list as well. Please contact patient to confirm which proton pump inhibitor he is taking. * Telephone Encounter - Heather Ogden LPN - 07/04/2017 7:57 AM EST Pending Prescriptions: Disp Refills omeprazole (PRILOSEC) 20 MG CPDR [Pharmac*90 Cap 1 Sig: TAKE 1 CAPSULE BY MOUTH DAILY * Telephone Encounter - Dominique Porter LPN - 07/03/2017 3:53 PM EST Pending Prescriptions: Disp Refills omeprazole (PRILOSEC) 20 MG CPDR [Pharmac*90 Cap 5 Sig: TAKE 1 CAPSULE BY MOUTH DAILY * Telephone Encounter - Dominique Porter LPN - 07/03/2017 3:52 PM EST Formatting of this note may be different from the original. Pending Prescriptions: Disp Refills omeprazole (PRILOSEC) 20 MG CPDR [Pharmac*90 Cap 5 Sig: TAKE 1 CAPSULE BY MOUTH DAILY Last Office Visit: 04/25/2017 Next Office Visit: 07/22/2017 Scheduled Provider(s): Nadeen Steiner MD Last date the medication was ordered: 04/16/17 historical 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 Hyperlipidemia E78.5 GERD (gastroesophageal reflux disease) K21.9 Hypertension I10 Psoriatic arthritis ([facility]) L40.50 Diabetes mellitus ([facility]) E11.9 Diabetic neuropathy ([facility]) E11.40 High risk medication use Z79.899 CKD (chronic kidney disease) stage 2, GFR 60-89 ml/min N18.2 Generalized osteoarthritis M15.9 Body mass index (BMI) of 45.0 to 49.9 in adult ([facility]) Z68.42 Labs: CREATININE-OUTSIDE LAB(MG/DL) Raymon Dt/Tm Resulted [...] Care Team Description 07/15/2017 Pharmacy Pharmacy Medication, [facility], [address] [address] [phone] 07/22/2017 Office Visit Rheumatology Nadeen Steiner MD [address] [place] [address], [place] [address] [phone] 03/12/2018 Pharmacy Pharmacy Medication, [facility], [address] [address] [phone] Health Maintenance Due Date Last Done Comments [...] Type Phone Address MEDICARE REPLACEMENT [employer] PPO [id number] Medicar e as of this encounter
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
--- OUTSIDE RECORDS SUMMARY | 2023-02-05 23:46 | External Medical Summary | Summary of Care ---
Author Name Unknown Organization [place] [address] Phone Care Team Providers Care Chemical Librarian Name Role Phone Cedric Chacko MD Primary Care Provi frank Reason for Visit * Reason Comments MEDICATION REFILL Encounter Details Date Type Department Care Team Description 04/19/2017 Pharmacy [facility], 4th Floor [place], [place] [id number] Medication, [facility], [facility] [address] [address] Encounter for medication refill* Allergies [...] PredniSONE (DELTASONE) 10 MG TabletIndications:Pso riatic arthritis ([facility]) 4 tabs daily for 5 day then 3 tabs daily for 5 days then 2 tabs for 5 days then 1 tab daily until seen 100 Tab 2 03/21/2017 Active Apremilast (OTEZLA) 30 MG TABSIndications:PSA (psoriatic arthritis) ([facility]) Take 1 Tab by mouth 2 times a day. 60 Tab 5 03/25/2017 Active Apremilast (OTEZLA) 10 & 20 & 30 MG TBPKIndications:PSA (psoriatic arthritis) ([facility]) As directed on package 1 Package 0 03/25/2017 Active as of this encounter Active Problems Problem Noted Date Body mass index (BMI) of 45.0 to 49.9 in adult ([facility]) 03/11/2017 Overview: Per Obesity protocol #1 Hyperlipidemia 09/17/2014 GERD (gastroesophageal reflux disease) 0 09/17/2014 Hypertension 09/17/2014 Psoriatic arthritis ([facility]) 09/17/2014 Overview: On Remicade 600 mg every 6 weeks Diabetes mellitus ([facility]) 09/17/2014 Diabetic neuropathy ([facility]) 09/17/2014 High risk medication use 09/17/2014 [...] as of this encounter Progress Notes * Erin Beavers TECH - 04/19/2017 11:20 AM [facility] REFILL CALL NOTE Sarwat Campbell [id number] Patient is a 71 year old male [...] outstanding balance?:no Discussed payment options?:NO Medication shipped to:[address] [place] [address] Satisfaction survey: NA Patient reminded that they [...] 04/25/2017 Office Visit Rheumatology Nadeen Steiner MD [address] [place] [address] [phone] 06/07/2017 Pharmacy Pharmacy Medication, [facility], [address] [place] [address] [phone] Health Maintenance Due Date Last Done Comments [...] Type Phone Address MEDICARE REPLACEMENT [employer] PPO [id number] Medicar e as of this encounter
--- OUTSIDE RECORDS SUMMARY | 2023-02-05 23:46 | External Medical Summary | Summary of Care ---
Author Name Unknown Organization [place] [address] Phone Care Team Providers Care Pack Worker Name Role Phone Unavailable Primary Care Provider Unavailabl e Reason for Visit * Reason Comments Rheum Follow Up return visit c/o L s houlder pain Encounter Details Date Type Department Care Team Description 07/26/2017 [facility] [address] [place] [address] Nadeen Steiner MD [address] [place] [id number] Left shoulder pain, unspecified chronicity*;Need for influenza vaccination Allergies Active Allergy Reactions Severity Noted Date [...] tab daily 100 Tab 2 07/22/2017 Active Hospital, Clinic, or Other Facility Administered Medication Ordered Dose Route Frequency Start Date End Date Status Lidocaine 2 % (PF) inj 40 mgIndications:Left shoulder pain, unspecified chronicity 40 MG IX Once 07/26/2017 07/26/2017 Ended methylPREDNISolone acetate (DEPO-MEDROL) 40 MG/ML inj 40 mgIndications:Left shoulder pain, unspecified chronicity 40 MG IX Once 07/26/2017 07/26/2017 Ended as of this encounter Active Problems [...] Vital Sign Reading Time Taken Blood Pressure 144/60 07/26/2017 3:35 PM EST Pulse - - Temperature 37.1 C (98.7 F) 07/26/2017 3 :35 PM EST Respiratory Rate - - Oxygen Saturation - - Inhaled Oxygen Concentration - - Weight - - Height - - Body Mass Index - - in this encounter Progress Notes * Nadeen Steiner MD - 07/26/2017 3:57 PM EST Formatting of this note may be different from the original. Sarwat Campbell CC: left shoulder pain. HPI: He continues to have left shoulder pain despite starting Michelle 5 mg in the evening. He was able to pick up worker the medication on Saturday. He could not sleep last night. Past treatments with intra-articular corticosteroid injections have been beneficial. PE: BP 144/60 | Temp (Src) 98.7 (Tympanic) Gen: he appears well but is in mild distress MSK: global tenderness of the left shoulder; pain with abduction. No warmth or swelling ICD-10-CM 1. Left shoulder pain, unspecified chronicity M25.512 The patient is here for intra-articular steroid injection to help manage his left shoulder pain. There is no sign of infection. Patient/procedure identified. Risk/discussed. Final verification of procedure. Plan: 1. Procedure: Time out was performed. Application of topical anesthetic and sterile preparation. 40mg of Depo-Medrol mixed with 2 mL of 1% lidocaine was injected into the left shoulder. Patient tolerated this well with no complications. 2. Continue current regimen 3. The patient will follow up as previously scheduled Nadeen Steiner MD 07/26/2017 4:08 PM in this encounter Nursing Notes * Van Smith LPN - 07/26/2017 3:34 PM EST Formatting of this note may be different from the original. Chief Complaint Patient presents with Rheum Follow Up return visit c/o L shoulder pain in this encounter Plan of Treatment Upcoming Encounters Date Type Specialty Care Team Description 08/13/2017 Pharmacy Pharmacy Medication, [facility] Refill, [address] [place] [address] 10/21/2017 Office Visit Rheumatology [facility] [address] [facility] [address] [phone] 03/12/2018 Pharmacy Pharmacy Medication[facility], [address] [place] [address] [phone] Scheduled Tests Name Priority Associated Diagnoses Order S chedule ARTHROCENT ASP &/OR INJ MAJOR JX/BURSA W/O US Routine Left shoulder pain, unspecified chronicity Ordered: 07/26/2017 Health Maintenance Due Date Last Done Comments [...] fileas of this encounter Visit Diagnoses Diagnosis Left shoulder pain, unspecif ied chronicity - Primary Need for influenza vaccinati on Need for prophylactic vaccination and inoculation against influenza in this encounter Administered Medications Inactive Administered Medications - up to 3 most recent administrations Medication Order MAR Action Action Date Dose Rate Site Lidocaine 2 % (PF) inj 40 mg 40 mg (2 mL), Intra-Articular, ONCE, 07/26/17 at 1630 Given 07/26/2017 15:50 EST 40 mg Shoul frank Left methylPREDNISolone acetate (DEPO-MEDROL) 40 MG/ML inj 40 mg 40 mg, Intra-Articular, ONCE, 07/26/17 at 1630 Given 07/26/2017 15:50 EST 40 mg S houlder Left in this encounter Insurance Payer Benefit Plan / Group Subscriber ID Type Phone Address MEDICARE REPLACEMENT [employer] PPO [id number] Medicar e as of this encounter"
--- OUTSIDE RECORDS SUMMARY | 2023-02-05 23:46 | External Medical Summary | Summary of Care ---
Author Name Unknown Organization [place] [address] Phone Care Team Providers Care Gas Worker Name Role Phone Cedric Chacko MD Primary Care Provi frank Reason for Visit * Reason Comments MEDICATION REFILL Encounter Details Date Type Department Care Team Description 07/15/2017 Pharmacy [facility] 25 [facility], 4th Floor [place], [place] [id number] Medication, [facility], [facility] [address] [address] Encounter for medication refill* Allergies [...] 30 MG TABSIndications:PSA (psoriatic arthritis) ([facility]) Take 1 Tab by mouth 2 times a day. 60 Tab 5 03/25/2017 Active oxyCODONE-acetaminophe n 5-325 mg per tab (PERCOCET) 5-325 MG per tablet As needed 04/16/2017 Active triamcinolone acetonide (ARISTOCORT) 0.1 % cream As directed 04/02/2017 Active PredniSONE (DELTASONE) 10 MG TabletIndications:Psor iatic arthritis ([facility]) 1 tab daily until 05/09/17, then take half tab daily 100 Tab 2 04/25/2017 Active omeprazole (PRILOSEC) 20 MG CPDR TAKE 1 CAPSULE BY MOUTH DAILY 90 Cap 1 07/05/2017 Active as of this encounter Active Problems Problem Noted Date Body mass index (BMI) of 45.0 to 49.9 in adult ([facility]) 03/11/2017 Overview: Per Obesity protocol #1 Hyperlipidemia 09/17/2014 GERD (gastroesophageal reflux disease) 0 09/17/2014 Hypertension 09/17/2014 Psoriatic arthritis ([facility]) 09/17/2014 Overview: On Remicade 600 mg every 6 weeks Diabetes mellitus ([facility]) 09/17/2014 Diabetic neuropathy ([facility]) 09/17/2014 High risk medication use 09/17/2014 CKD [...] Progress Notes * Erin Beavers TECH - 07/15/2017 11:44 AM EST [facility] REFILL CALL NOTE Sarwat Campbell [id number] Patient is a 72 year old male [...] outstanding balance?:no Discussed payment options?:no Medication shipped to:[address] [place] [address] Satisfaction survey: NA Patient reminded that they [...] 07/15/2017 Pharmacy Pharmacy Medication[facility], [address] [address] [phone] Encounter for medication refill* 07/22/2017 Office Visit Rheumatology Nadeen Steiner MD [address] [place] [address] [phone] 03/12/2018 Pharmacy Pharmacy Medication, [facility], [address] [address] [phone] Health Maintenance Due Date Last Done Comments [...] Type Phone Address MEDICARE REPLACEMENT [employer] PPO [id number] Medicar e as of this encounter
[2023-02-06] MEDS: HEPARIN SOD 5,000 UNIT/0.5 ML VIAL SQ SCH ×3 (02:08→17:01)
[2023-02-06 06:40] LABS: Basophils # (auto) 0.03 K/uL (0.00-0.20); Basophils % (auto) 0.2 %; Eosinophils # (auto) 0.26 K/uL (0.00-0.50); Eosinophils % (auto) 1.8 %; Hematocrit (blood only) 28.6 % (42.0-52.0); Hemoglobin 8.9 g/dl (14.0-18.0); Immature Granulocytes # (auto) 0.08 K/uL (0.01-0.20); Immature Granulocytes % (auto) 0.6 %; Lymphocytes # (auto) 1.07 K/uL (1.20-3.40); Lymphocytes % (auto) 7.4 %; Mean Corpuscular Hemoglobin 28.6 pg (25.0-34.0); Mean Corpuscular Hgb Conc 31.1 g/dL (32.0-36.0); Mean Platelet Volume 10.1 fL (9.4-12.4); Monocytes # (auto) 0.49 K/uL (0.11-0.59); Monocytes % (auto) 3.4 %; Neutrophils # (auto) 12.59 K/uL (1.40-6.50); Neutrophils % (auto) 86.6 %; Platelet Count 228 K/uL (130-400); RDW Coefficient of Variation 16.8 % (11.5-14.5); RDW Standard Deviation 55.9 fL (36.4-46.3); Red Blood Count 3.11 M/uL (4.70-6.10); White Blood Count 14.52 K/ul (4.8-10.8)
[2023-02-06 06:55] LABS: BUN Creatinine Ratio 23.8 (10-20); Calcium 8.9 mg/dl (8.6-10.3); Creatinine Clr Calc Pharmacy 34.4 ml/min; Est GFR (African American) 30.7 ml/min; Est GFR (Non-African American) 26.5 ml/min; Magnesium 2.1 mg/dl (1.7-2.4); Potassium 5.1 mmol/L (3.5-5.1)
[2023-02-06] MEDS: SODIUM CHLOR 7% 4 ML NEB NEB SCH ×2 (07:08→19:22)
[2023-02-06] MEDS: ALBUT/IPRATROP 3MG/0.5MG NEB 3 ML VIAL NEB SCH ×4 (07:08→19:22)
--- NOTE | 2023-02-06 07:22 | Hospitalist Progress Note ---
Date of Service February 06, 2023 Assessment & Plan (1) Sepsis: Plan: Presented with acute respiratory failure with hypoxia, elevated lactic acid, DUNCAN, hyperkalemia (? from DUNCAN), tachycardia to low 100s (sinus on monitor/1st degree), temp to 38.4C. Recent switched from lasix to bumex 2mg BID, suspect dehydration contributing Unclear source of infection but suspected likely from pneumonia process (despite CXR reporting no acute finding), cannot r/o GI w/ reports diarrhea. -UA does not appear infected -Biofire negative Admit to PCU Blood cultures pending Cefepime IV, MRSA nares pending to see if needing to add MRSA coverage + doxy for atypical coverage Given 2L NSS in ER Repeat lactic 1.7 Holding further diuretics for now given DUNCAN/hyperkalemia/dehydration Will order additional 1L @ 80cc/hr x1 L for now given continued dehydration on exam Insulin/dextrose for hyperkalemia. Repeat labs this afternoon check stool studies/cdiff given reports diarrhea, legionella given resp failure CXR 2 view in AM, suspect has underlying pneumonia Heparin SQ for DVT prophylaxis given DUNCAN on CKD Monitor labs on repeat (2) Acute respiratory failure with hypoxia: Plan: typically on 4L NC, recent office visit notes SpO2 to 84-88 during visit on his usual 4L NC. To note, only on flonase and albuterol HFA at home. Biofire negative Now requiring 10L/oxymask to maintain sats pulmonary toilet with incentive spirometer/flutter valve, duonebs Hypertonic saline/mucinex to help with congestion/possible mucus plugging Sputum cx if able to obtain IV mag replacement abx as above, blood cultures pending VBG w/ normal pH 7.41, pCO2 65, normal pO2/HCO2 BiPAP HS and as needed -- to place on now/while sleeping CXR 2 view in AM. consider CT chest if no acute finding found (daughter states prior pneumonia unable to be seen on CXR) Supplemental O2 to maintain sats -- currently 10L Oxymask. titrate as able Recent PFT testing in December with severe restrictive lung disease, moderate decrease in TLC w/ severe decrease in ERV. No obstruction, significant bronchodilator response. Moderate decrease in DLCO, follow-up hemoglobin. Decrease in FVC by 340mL, decrease in FEV1 by 380mL, decrease in TLC 73--> 58%. decrease in DLCO 63-->58%, increase in weight by 23 pounds compared to 04/2018. (Note prior free kappa/lambda ratio elevation, see recent immunology testing, ?underlying amyloid vs other, consider pulm consult if not improving while inpatient) also on chronic steroids, ?PCP pneumonia a concern. Also w/ reports of diarrhea will check legionella testing (3) Leukocytosis: Plan: chronic elevations w/ his psoriatic arthritis and on prednisone 5mg daily, recently placed on stelara avoiding stress dose steroids for now, BP before fluids 85/54, now 106/43 and will monitor. If repeat lactic wnl, holding off for now monitor for need to resume (4) Elevated lactic acid level: Plan: 3.1 on admit, IVF as above, repeat wnl abx for above, monitor for source but suspected pulm/pneumonia, checking stool studies/cdiff as well will hold mag-ox, prevention further diarrhea. if needed consider SLOW mag IVF as above, continue if continued elevation (5) Acute kidney injury superimposed on chronic kidney disease: Plan: BUN/Cr up to 52/2.67, acute kidney injury in setting of CKD, likely worsened w/ recent switch to Bumex 2mg PO BID. Also hypotensive in ER, could have some ATN. Holding further Bumex, 2L IVF in ER, will continue gentle IVF but monitor for volume overload Avoid nephrotoxins/renal dose meds as able Gabapentin 900mg daily (max dose for renal function 600mg daily in 1-2 divided doses) -- will reduce to 300mg BID for now. Consider d/c metformin Monitor repeat kidney function (6) Acute hyperkalemia: Plan: K 5.9, likely from dehydration/diuretics. Insulin/dextrose ordered on admit. monitor repeat labs this evening, if still elevated consider K binding agent holding lisinopril/bumex to prevent worsening dehydration holding PO mag replacement, consider causing diarrhea possible IV mag ordered as above Monitor repeat BMP (7) Hypomagnesemia: Plan: 1.4-- IV replacement ordered. Consider SLOW mag if contributing to diarrhea, checking stool studies as above monitor labs on repeat (8) Diabetes: Plan: last a1c 7.3 holding PO metformin (edward w/ CKD/reduced CrCl, consider discontinuing), holding glimepiride continue empagliflozin given his hx CHF BSG AC/HS, SSI while inpatient. Consider glycemic consult if needing stress dose steroids (per supervising provider, to hold off for now) (9) CHF (congestive heart failure): Plan: noted, follows [facility] cards/CHF clinic, also with cardiomyopathy/HTN/HLD recent switch to bumex from lasix (prior taking 80mg lasix, now bumex 2mg PO BID) HOLDING bumex/lisinopril 30mg, HOLDING metolazone (had been taking twice weekly) continue amlodipine 5mg, metoprolol 200mg, statin, empagliflozin 10mg daily (10) Diarrhea: Plan: reports worsening diarrhea, had been having on/off, c-scope in past and never will get again. denied any blood in stool per , but check fecal occult given mesenteric artery narrowing further review of chart w/ admit in September, stool cx + for rotavirus at that time checking stool studies/cdiff as above for further eval (11) Psoriatic arthropathy: Plan: on prednisone 5mg daily, continued. monitor for need for stress dose steroids holding stelara, reports next dose due for tomorrow (able to bring in if needed) (12) Sleep apnea: Plan: Bipap HS, to bring home unit tomorrow and can place order to use (13) GERD (gastroesophageal reflux disease): Plan: continue ppi or hospital equivalent (14) Hyperlipidemia: Plan: continue statin (15) Shortness of breath: Plan: as above, further eval pending (16) Elevated procalcitonin: Plan: blood cultures pending, abx as above (17) Weakness: Plan: multifactorial, suspect combination of above, DUNCAN/hyperkalemia, infection. 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: Plan: noted hx, monitor for abd pain check fecal occult w/ reported diarrhea (20) Cardiomyopathy: Plan: follows [facility] group, no CP reported Admission and Anticipated Discharge Date Admission Date: February 05, 2023 Results & Data Results & Data Vital Signs (Past 12 Hours) Vital Signs Temp Pulse Pulse Resp BP Pulse Ox O2 Del Method 02/06/23 07:08 79 18 92 Nasal Cannula 02/06/23 04:44 36.8 C 85 20 112/65 94 Nasal Cannula 02/05/23 22:15 76 02/05/23 22:42 36.9 C 110 H 20 133/64 90 Nasal Cannula 02/05/23 22:27 74 18 94 Nasal Cannula 02/05/23 22:27 74 24 93 02/05/23 19:55 37.0 C 74 20 116/48 L 100 Nasal Cannula 02/05/23 19:42 Nasal Cannula O2 Flow Rate FiO2 02/06/23 07:08 5 02/06/23 04:44 4 02/05/23 22:15 02/05/23 22:42 4.5 02/05/23 22:27 5 02/05/23 22:27 6 02/05/23 19:55 5.0 02/05/23 19:42 4 (18) Rheumatoid arthritis Rheumatoid arthritis location: unspecified site Rheumatoid factor presence: unspecified presence Qualified Code(s): M06.9 - Rheumatoid arthritis, unspecified (20) Cardiomyopathy Cardiomyopathy type: dilated Qualified Code(s): I42.0 - Dilated cardiomyopathy
[2023-02-06] MEDS: METOPROLOL SUCC 50MG EXT REL TAB PO SCH (07:58)
[2023-02-06] MEDS: guaiFENesin 600 MG TABCR PO SCH ×2 (07:58→20:41)
[2023-02-06] MEDS: FEXOFENADINE HCL 180 MG TAB PO SCH (07:58)
[2023-02-06] MEDS: GABAPENTIN 300 MG CAP PO SCH ×2 (07:59→20:41)
[2023-02-06] MEDS: EMPAGLIFLOZIN 10 MG TAB PO SCH (07:59)
[2023-02-06] MEDS: FLUTICASONE PROPIONATE NA SPR 16 GM BTL NAE SCH ×2 (07:59→20:41)
[2023-02-06] MEDS: PANTOprazole 40 MG TAB PO SCH (07:59)
[2023-02-06] MEDS: amLODIPine BESYLATE 5 MG TAB PO SCH (07:59)
[2023-02-06] MEDS: ATORVASTATIN 10 MG TAB PO SCH (07:59)
[2023-02-06] MEDS: CHOLECALCIFEROL 5,000 UNITS 125 MCG TAB PO SCH (07:59)
[2023-02-06] MEDS: HYDROCORTISONE 2.5% CR 30 GM TUBE EXT SCH ×2 (08:00→20:41)
[2023-02-06] MEDS: TRIAMCINOLONE ACET 0.1% CR 15 GM TUBE TOP SCH ×2 (08:00→20:42)
[2023-02-06] MEDS: LACTATED RINGER'S 1,000 ML IV SCH ×2 (08:02→16:41)
[2023-02-06] MEDS: CLOBETASOL PROPIONATE 0.05% OINT 15 GM TUBE EXT SCH ×2 (08:02→20:41)
[2023-02-06] MEDS: DOXYCYCLINE HYCLATE 100 MG in DEXTROSE 5% 100 ML IV SCH ×2 (08:06→20:44)
[2023-02-06] MEDS: INSULIN ASPART PER UNIT CHARGE SC SCH ×4 (08:10→21:06)
[2023-02-06] MEDS ORDERED: predniSONE 10 MG TABLET PO STA (08:31)
[2023-02-06] MEDS ORDERED: predniSONE 5 MG TAB PO STA (08:31)
--- NOTE | 2023-02-06 08:52 | XRay Report ---
TWO VIEW CHEST CLINICAL HISTORY: Pneumonia. FINDINGS: AP and lateral chest radiographs are compared to study dated 02/05/2023 and correlated with chest CT dated 09/21/2022. The heart is enlarged noting atherosclerotic calcification of the thoracic aorta. There is mild pulmonary vascular congestion. Scarring/atelectasis is noted at the lung bases. No airspace consolidation or large pleural effusion is identified. There is no pneumothorax. The skel etal structures are osteopenic. The bony thorax appears intact. Degenerative change and hyperkyphosis is noted in the thoracic spine. IMPRESSION: Cardiomegaly with mild pulmonary vascular congestion. ACT 112: Negative or not required by law. Electronically signed by: Matt Astorga M.D. 02/06/2023 8:50 AM
[2023-02-06] MEDS ORDERED: predniSONE 5 MG TAB PO SCH (09:00)
[2023-02-06] MEDS: CEFEPIME 1,000 MG in SYRINGE 0 ML IV SCH (12:22)
[2023-02-06] MEDS ORDERED: CEFEPIME 1,000 MG in SYRINGE 0 ML IV ONE (13:15)
--- NOTE | 2023-02-06 20:35 | Hospitalist Progress Note ---
Date of Service February 06, 2023 Assessment & Plan (1) Sepsis: Plan: severe sepsis. likely source - despite negative cxr x 2 still suspect the lungs. cont doxy. cont cefepime. MRSA swab neg - defer on MRSA coverage. stress dose steroids (prednisone 40mg today). other supportive care. Resp BioFire fully negative. Blood cx's thus far negative. BPs improved. lactic acidosis resolved. Lyme screen negative. Anaplasmosis smear negative. cxr ordered for tomorrow. repeat labs am. (2) Acute and chronic respiratory failure with hypoxia: Plan: chronic - 4 L NC O2 continuously. acute - was requiring as much as 10 L of O2 yesterday. ?developing pneumonia vs bronchitis? Resp BioFire negative. cont abx. cont saline nebs. cont albuterol nebs qid. cont flutter valve, etc. prednisone stress dosing which may help his pulmonary status. recent outpatient PFTs with severe restrictive lung disease. CT chest in early 2022 without ILD/PF or other significant lung abnormalities. restriction 2nd to morbid obesity? (3) Acute kidney injury superimposed on chronic kidney disease: Plan: Peak Cr 2.67 Likely sepsis-associated ATN Cr improved today Bumex on hold will stop IV fluids due to h/o HFpEF repeat BMP am of note - baseline Cr is about 1.3 to 1.5 with CrCl 40s/50s (stage 3a) (4) Acute hyperkalemia: Plan: 2nd to #3 - resolved BMP am (5) Hypomagnesemia: Plan: replaced resolved low mag likely 2nd to diarrhea & diuretics (6) Diabetes: Plan: last a1c 7.3 earlier this year; repeat another a1c in am holding metformin holding glimepiride continue empagliflozin BSG AC/HS due to stress dose steroids will add lantus and tighten novolog parameters (7) CHF (congestive heart failure): Plan: Chronic diastolic CHF Volume depleted in setting of severe sepsis Bumex, MARIE, metolazone all on hold Continue amlodipine 5mg, metoprolol 200mg, statin, empagliflozin 10mg daily Has received copious IV fluids since admission - will stop IV fluids (8) Diarrhea: Plan: check c diff check stool BioFire if c diff is negative (9) Psoriatic arthropathy: Plan: on prednisone 5mg daily chronically "for years" recently initiated on Stelara immunotherapy -- this should be held in light of #1 will provide stress dose steroids due to his illness (10) Sleep apnea: Plan: Bipap HS may use home unit (11) GERD (gastroesophageal reflux disease): Plan: continue ppi (12) Hyperlipidemia: Plan: continue statin (13) Weakness: Plan: 2nd to #1 PT/OT while here (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: Plan: noted no issues at this time (15) Cardiomyopathy: Plan: follows [facility] CHF clinic previously had depressed EF; fortunately his EF has recovered and is now normal see above Plan DVT proph - heparin 5000 TID /daughter updated at bedside Admission and Anticipated Discharge Date Admission Date: February 05, 2023 Subjective tele stable overnight pt lying in bed comfortably finishing a neb treatment /daughter at bedside patient reports he feels better today dyspnea improved can take bigger breaths appetite is about the same as what he eats/drinks at home ongoing cough with mild sputum no chest pain no orthopnea confirms he is on home O2 continuously asks if his bumex 2mg BID is the right dose or if it should be larger/smaller patient had been having diarrhea at home - none since arrival at [facility] Review of Systems Review of Systems: gen - fevers/rigors yesterday, none today cv - no chest pain, no PND, no orthopnea pulm - ongoing cough, dyspnea, etc -- but improved GI - no abd pain; no nausea/emesis Physical Exam Physical Exam: gen - coughing; finishing up a neb treatment; NAD; morbidly obese neck - no obvious JVD mouth - MMM heart - RRR, s1 s2 lungs - b/l basilar rales L>R abd - soft NT BS+; mildly distended ext - no edema, pulses 2+ b/l psych - a/o x 3 Results & Data Results & Data Vital Signs (Past 12 Hours) Vital Signs Temp Pulse Resp BP Pulse Ox Pulse Ox Pulse Ox 02/06/23 19:22 77 20 93 02/06/23 15:31 77 18 93 02/06/23 14:56 36.6 C 79 21 128/65 91 02/06/23 14:43 91 94 02/06/23 11:59 36.8 C 73 20 112/81 94 02/06/23 11:10 79 18 93 Pulse Ox O2 Del Method O2 Flow Rate O2 Flow Rate O2 Flow Rate O2 Flow Rate 02/06/23 19:22 Nasal Cannula 6 02/06/23 15:31 Nasal Cannula 5 02/06/23 14:56 Nasal Cannula 5.0 02/06/23 14:43 86 L 4 4 4 02/06/23 11:59 Nasal Cannula 5.0 02/06/23 11:10 Nasal Cannula 5 Laboratory Results Laboratory Results - last 24 hr 02/06/23 02/06/23 02/06/23 05:19 05:19 05:19 WBC 14.52 H RBC 3.11 L Hgb 8.9 L Hct 28.6 L MCV 92.0 MCH 28.6 MCHC 31.1 L RDW Std Deviation 55.9 H RDW Coeff of Tony 16.8 H Plt Count 228 MPV 10.1 Immature Gran % (Auto) 0.6 Neut % (Auto) 86.6 Lymph % (Auto) 7.4 [place] % (Auto) 3.4 Eos % (Auto) 1.8 Baso % (Auto) 0.2 Neut # (Auto) 12.59 H Lymph # (Auto) 1.07 L [place] # (Auto) 0.49 Eos # (Auto) 0.26 Baso # (Auto) 0.03 Immature Gran # (Auto) 0.08 Sodium 135 L Potassium 5.1 Chloride 90 L Carbon Dioxide 36 H Anion Gap 9 BUN 54 H Creatinine 2.27 H Est Cr Clr Drug Dosing 34.4 Est GFR ( Amer) 30.7 Est GFR (Non-Af Amer) 26.5 BUN/Creatinine Ratio 23.8 H Glucose 112 H POC Glucose Calcium 8.9 Magnesium 2.1 Anaplasma Smear See Comment 02/06/23 02/06/23 02/06/23 07:24 11:08 16:24 WBC RBC Hgb Hct MCV MCH MCHC RDW Std Deviation RDW Coeff of Tony Plt Count MPV Immature Gran % (Auto) Neut % (Auto) Lymph % (Auto) [place] % (Auto) Eos % (Auto) Baso % (Auto) Neut # (Auto) Lymph # (Auto) [place] # (Auto) Eos # (Auto) Baso # (Auto) Immature Gran # (Auto) Sodium Potassium Chloride Carbon Dioxide Anion Gap BUN Creatinine Est Cr Clr Drug Dosing Est GFR ( Amer) Est GFR (Non-Af Amer) BUN/Creatinine Ratio Glucose POC Glucose 121 H 214 H 386 H* Calcium Magnesium Anaplasma Smear 02/06/23 02/06/23 02/06/23 16:26 20:57 20:59 WBC RBC Hgb Hct MCV MCH MCHC RDW Std Deviation RDW Coeff of Tony Plt Count MPV Immature Gran % (Auto) Neut % (Auto) Lymph % (Auto) [place] % (Auto) Eos % (Auto) Baso % (Auto) Neut # (Auto) Lymph # (Auto) [place] # (Auto) Eos # (Auto) Baso # (Auto) Immature Gran # (Auto) Sodium Potassium Chloride Carbon Dioxide Anion Gap BUN Creatinine Est Cr Clr Drug Dosing Est GFR ( Amer) Est GFR (Non-Af Amer) BUN/Creatinine Ratio Glucose POC Glucose 332 H* 415 H* 470 H* Calcium Magnesium Anaplasma Smear 02/06/23 22:03 WBC RBC Hgb Hct MCV MCH MCHC RDW Std Deviation RDW Coeff of Tony Plt Count MPV Immature Gran % (Auto) Neut % (Auto) Lymph % (Auto) [place] % (Auto) Eos % (Auto) Baso % (Auto) Neut # (Auto) Lymph # (Auto) [place] # (Auto) Eos # (Auto) Baso # (Auto) Immature Gran # (Auto) Sodium Potassium Chloride Carbon Dioxide Anion Gap BUN Creatinine Est Cr Clr Drug Dosing Est GFR ( Amer) Est GFR (Non-Af Amer) BUN/Creatinine Ratio Glucose POC Glucose 429 H* Calcium Magnesium Anaplasma Smear PG Care Time/CCT Total # of Minutes Spent Total Time Spent with Patient: Total time spent is greater than 50% in coordination of care (as documented) at patient's floor/unit and/or counseling patient: Coding Level of Care Code 40597 SUB INP/OBS CARE 3/50MIN Diagnoses Sepsis A41.9 Acute and chronic respiratory failure with hypoxia J96.21 Acute kidney injury superimposed on chronic kidney disease N17.9; N18.9 Acute hyperkalemia E87.5 Hypomagnesemia E83.42 Diabetes E11.9 CHF (congestive heart failure) I50.9 Diarrhea R19.7 Psoriatic arthropathy L40.50 Sleep apnea G47.30 GERD (gastroesophageal reflux disease) K21.9 Hyperlipidemia E78.5 Weakness R53.1 Stenosis of inferior mesenteric artery K55.1 Cardiomyopathy I42.0 Cardiomyopathy type: dilated (15) Cardiomyopathy Cardiomyopathy type: dilated Qualified Code(s): I42.0 - Dilated cardiomyopathy
[2023-02-06] MEDS: LANTUS PER UNIT CHARGE SQ SCH (21:05)
[2023-02-06] MEDS ORDERED: INSULIN ASPART PER UNIT CHARGE SC STA (22:29)
[2023-02-07] MEDS ORDERED: INSULIN ASPART PER UNIT CHARGE SC STA
[2023-02-07] MEDS: CEFEPIME 2,000 MG in SYRINGE 0 ML IV SCH ×2 (00:30→12:00)
[2023-02-07] MEDS: HEPARIN SOD 5,000 UNIT/0.5 ML VIAL SQ SCH ×3 (00:55→16:42)
[2023-02-07 06:07] LABS: Hematocrit (blood only) 29.2 % (42.0-52.0); Mean Corpuscular Hgb Conc 30.8 g/dL (32.0-36.0); Mean Corpuscular Volume 90.7 fL (80.0-100.0); Platelet Count 218 K/uL (130-400); RDW Coefficient of Variation 16.3 % (11.5-14.5); RDW Standard Deviation 54.6 fL (36.4-46.3); Red Blood Count 3.22 M/uL (4.70-6.10); White Blood Count 13.12 K/ul (4.8-10.8)
[2023-02-07 06:27] LABS: BUN Creatinine Ratio 32.5 (10-20); Calcium 8.6 mg/dl (8.6-10.3); Creatinine Clr Calc Pharmacy 48.9 ml/min; Est GFR (African American) 46.8 ml/min; Est GFR (Non-African American) 40.4 ml/min; Potassium 4.8 mmol/L (3.5-5.1)
[2023-02-07] MEDS: SODIUM CHLOR 7% 4 ML NEB NEB SCH ×2 (07:08→18:41)
[2023-02-07] MEDS: ALBUT/IPRATROP 3MG/0.5MG NEB 3 ML VIAL NEB SCH ×4 (07:08→18:41)
[2023-02-07 07:09] LABS: Estimated Average Glucose 203 mg/dl; Hemoglobin A1C 8.7 % (4.5-5.6)
[2023-02-07] MEDS: PANTOprazole 40 MG TAB PO SCH (08:02)
[2023-02-07] MEDS: EMPAGLIFLOZIN 10 MG TAB PO SCH (08:02)
[2023-02-07] MEDS: amLODIPine BESYLATE 5 MG TAB PO SCH (08:02)
[2023-02-07] MEDS: FEXOFENADINE HCL 180 MG TAB PO SCH (08:02)
[2023-02-07] MEDS: ATORVASTATIN 10 MG TAB PO SCH (08:03)
[2023-02-07] MEDS: FLUTICASONE PROPIONATE NA SPR 16 GM BTL NAE SCH ×2 (08:03→20:30)
[2023-02-07] MEDS: METOPROLOL SUCC 50MG EXT REL TAB PO SCH (08:03)
[2023-02-07] MEDS: guaiFENesin 600 MG TABCR PO SCH ×2 (08:03→20:31)
[2023-02-07] MEDS: GABAPENTIN 300 MG CAP PO SCH ×2 (08:03→20:31)
[2023-02-07] MEDS: CHOLECALCIFEROL 5,000 UNITS 125 MCG TAB PO SCH (08:03)
[2023-02-07] MEDS: HYDROCORTISONE 2.5% CR 30 GM TUBE EXT SCH ×2 (08:09→20:32)
[2023-02-07] MEDS: INSULIN ASPART PER UNIT CHARGE SC SCH ×4 (08:12→20:29)
[2023-02-07] MEDS: DOXYCYCLINE HYCLATE 100 MG in DEXTROSE 5% 100 ML IV SCH ×2 (08:13→20:29)
[2023-02-07] MEDS: TRIAMCINOLONE ACET 0.1% CR 15 GM TUBE TOP SCH ×2 (08:17→20:32)
[2023-02-07] MEDS: CLOBETASOL PROPIONATE 0.05% OINT 15 GM TUBE EXT SCH ×2 (08:18→20:32)
[2023-02-07] MEDS ORDERED: predniSONE 20 MG TAB PO SCH (09:00)
[2023-02-07] MEDS ORDERED: LANTUS PER UNIT CHARGE SQ SCH (09:00)
[2023-02-07] MEDS: LANTUS PER UNIT CHARGE SQ SCH (20:29)
[2023-02-07] MEDS ORDERED: LANTUS PER UNIT CHARGE SQ STA (21:22)
[2023-02-07] MEDS ORDERED: cefTRIAXone SODIUM 350 MG/ML IM IM ONE (23:00)
[2023-02-08] MEDS ORDERED: cefTRIAXone SODIUM 350 MG/ML IM IM ONE
[2023-02-08] MEDS: HEPARIN SOD 5,000 UNIT/0.5 ML VIAL SQ SCH ×2 (04:39→09:28)
[2023-02-08] MEDS: ALBUT/IPRATROP 3MG/0.5MG NEB 3 ML VIAL NEB SCH ×3 (07:42→15:08)
[2023-02-08] MEDS: SODIUM CHLOR 7% 4 ML NEB NEB SCH (07:42)
--- NOTE | 2023-02-08 07:46 | Hospitalist Progress Note ---
Date of Service February 07, 2023 Assessment & Plan (1) Sepsis: Plan: severe sepsis - present on admission. IMPROVED. likely source -> despite negative cxr x 2 still suspect the lungs. b/l basilar rales. cont doxy. cont cefepime. can likely change to PO levaquin tomorrow if blood cx's cont to remain negative. MRSA swab neg - defer on MRSA coverage. stress dose steroids (prednisone 40mg today then 30mg tomorrow & keep weaning). other supportive care. Resp BioFire fully negative. Lyme screen negative. Anaplasmosis smear negative. I don't suspect tick-borne infection as cause of his presentation. repeat labs am. (2) Acute and chronic respiratory failure with hypoxia: Plan: chronic - 4 L NC O2 continuously. acute - was requiring as much as 10 L of O2 on day of presentation/admission. I do suspect lower respiratory tract infection despite the negative cxr and negative BioFire panel. cont abx - likely can transition to PO abx tomorrow. cont saline nebs. cont albuterol nebs qid. cont flutter valve, etc. cont prednisone stress dosing w/ taper. recent outpatient PFTs with severe restrictive lung disease. CT chest in early 2022 without ILD/PF or other significant lung abnormalities. restriction 2nd to morbid obesity? (3) Acute kidney injury superimposed on chronic kidney disease: Plan: Peak Cr 2.67 Likely sepsis-associated ATN Cr again improved today Cont to hold bumex repeat BMP am of note - baseline Cr is about 1.3 to 1.5 with CrCl 40s/50s (stage 3a) (4) Acute hyperkalemia: Plan: 2nd to #3 - resolved BMP am (5) Hypomagnesemia: Plan: replaced resolved low mag likely 2nd to diarrhea & diuretics (6) Diabetes: Plan: last a1c 7.3 earlier this year; repeat a1c >8% holding metformin holding glimepiride continue empagliflozin BSG AC/HS due to stress dose steroids -- significant hyperglycemia increase lantus increase novolog parameters (7) CHF (congestive heart failure): Plan: Chronic diastolic CHF Volume depleted in setting of severe sepsis at time of admission Bumex, MARIE, metolazone all on hold Continue amlodipine 5mg, metoprolol 200mg, statin, empagliflozin 10mg daily resume bumex close to d/c was on 2mg BID prior to admission (8) Diarrhea: Plan: resolved if it recurs -- check c diff and check stool BioFire if c diff is negative (9) Psoriatic arthropathy: Plan: on prednisone 5mg daily chronically "for years" recently initiated on Stelara immunotherapy -- this should be held in light of #1 will provide stress dose steroids due to his illness - 40mg today, then 30mg tomorrow (10) Sleep apnea: Plan: Bipap HS may use home unit (11) GERD (gastroesophageal reflux disease): Plan: continue ppi (12) Hyperlipidemia: Plan: continue statin (13) Weakness: Plan: 2nd to #1 PT/OT while here weakness is improving (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: Plan: noted no issues at this time (15) Cardiomyopathy: Plan: follows [facility] [place] [place] previously had depressed EF; fortunately his EF has recovered and is now normal see above Plan DVT proph - heparin 5000 TID updated at bedside progressing Admission and Anticipated Discharge Date Admission Date: February 05, 2023 Subjective patient continues to feel better appetite improved today energy improved less cough dyspnea on exertion approaching his typical baseline has been able to ambulate from bed to commode today w/ assistance no diarrhea at bedside Review of Systems Review of Systems: gen - no fevers or chills cv - no orthopnea pulm - no dyspnea at rest GI - no nausea/emesis/abd pain/diarrhea Physical Exam Physical Exam: gen - looks much better today; NAD neck - no obvious JVD mouth - MMM heart - RRR, s1 s2, no murmur lungs - b/l basilar rales L>R; fine, dry; no wheezes; no increased work of breathing abd - soft NT BS+ND ext - trace edema b/l ankles/feet, pulses 2+ b/l psych - a/o x 3 Results & Data Results & Data Vital Signs (Past 12 Hours) Vital Signs Temp Pulse Pulse Resp BP Pulse Ox O2 Del Method 02/07/23 15:31 36.4 C L 67 18 136/52 L 95 Nasal Cannula 02/07/23 15:10 77 18 95 Nasal Cannula 02/07/23 11:19 37.0 C 65 19 125/59 L 92 Nasal Cannula 02/07/23 11:05 81 18 94 Nasal Cannula 02/07/23 08:00 Nasal Cannula O2 Flow Rate 02/07/23 15:31 4 02/07/23 15:10 4 02/07/23 11:19 1 02/07/23 11:05 4 02/07/23 08:00 4 Laboratory Results Laboratory Results - last 24 hr 02/07/23 02/07/23 02/07/23 11:13 16:31 16:32 POC Glucose 293 H 342 H* 354 H* 02/07/23 02/07/23 02/07/23 20:20 20:21 20:22 POC Glucose 393 H* 376 H* 412 H* 02/08/23 07:22 POC Glucose 174 H Creatinine 1.6 WBC count 13 Blood cultures negative x 2 sets from admission PG Care Time/CCT Total # of Minutes Spent Total Time Spent with Patient: Total time spent is greater than 50% in coordination of care (as documented) at patient's floor/unit and/or counseling patient: Coding Level of Care Code 04962 SUB INP/OBS CARE 2/35MIN Diagnoses Sepsis A41.9 Acute and chronic respiratory failure with hypoxia J96.21 Acute kidney injury superimposed on chronic kidney disease N17.9; N18.9 Acute hyperkalemia E87.5 Hypomagnesemia E83.42 Diabetes E11.9 CHF (congestive heart failure) I50.9 Diarrhea R19.7 Psoriatic arthropathy L40.50 Sleep apnea G47.30 GERD (gastroesophageal reflux disease) K21.9 Hyperlipidemia E78.5 Weakness R53.1 Stenosis of inferior mesenteric artery K55.1 Cardiomyopathy I42.0 Cardiomyopathy type: dilated (15) Cardiomyopathy Cardiomyopathy type: dilated Qualified Code(s): I42.0 - Dilated cardiomyopathy
[2023-02-08] MEDS ORDERED: predniSONE 10 MG TABLET PO SCH (09:00)
[2023-02-08] MEDS ORDERED: LANTUS PER UNIT CHARGE SQ SCH (09:00)
[2023-02-08] MEDS ORDERED: DOXYCYCLINE HYCLATE 100 MG CAP PO SCH (09:00)
[2023-02-08] MEDS: INSULIN ASPART PER UNIT CHARGE SC SCH ×2 (09:03→12:23)
[2023-02-08] MEDS: ATORVASTATIN 10 MG TAB PO SCH (09:04)
[2023-02-08] MEDS: CHOLECALCIFEROL 5,000 UNITS 125 MCG TAB PO SCH (09:04)
[2023-02-08] MEDS: amLODIPine BESYLATE 5 MG TAB PO SCH (09:04)
[2023-02-08] MEDS: FLUTICASONE PROPIONATE NA SPR 16 GM BTL NAE SCH (09:04)
[2023-02-08] MEDS: PANTOprazole 40 MG TAB PO SCH (09:05)
[2023-02-08] MEDS: guaiFENesin 600 MG TABCR PO SCH (09:05)
[2023-02-08] MEDS: GABAPENTIN 300 MG CAP PO SCH (09:05)
[2023-02-08] MEDS: FEXOFENADINE HCL 180 MG TAB PO SCH (09:06)
[2023-02-08] MEDS: CLOBETASOL PROPIONATE 0.05% OINT 15 GM TUBE EXT SCH (09:06)
[2023-02-08] MEDS: HYDROCORTISONE 2.5% CR 30 GM TUBE EXT SCH (09:06)
[2023-02-08] MEDS: TRIAMCINOLONE ACET 0.1% CR 15 GM TUBE TOP SCH (09:06)
[2023-02-08] MEDS: EMPAGLIFLOZIN 10 MG TAB PO SCH (09:06)
[2023-02-08] MEDS: METOPROLOL SUCC 50MG EXT REL TAB PO SCH (09:07)
[2023-02-08 10:07] LABS: Basophils # (auto) 0.03 K/uL (0.00-0.20); Basophils % (auto) 0.3 %; Eosinophils # (auto) 0.11 K/uL (0.00-0.50); Eosinophils % (auto) 0.9 %; Hematocrit (blood only) 31.4 % (42.0-52.0); Hemoglobin 9.8 g/dl (14.0-18.0); Immature Granulocytes # (auto) 0.13 K/uL (0.01-0.20); Immature Granulocytes % (auto) 1.1 %; Lymphocytes # (auto) 1.42 K/uL (1.20-3.40); Lymphocytes % (auto) 11.9 %; Mean Corpuscular Hemoglobin 28.2 pg (25.0-34.0); Mean Corpuscular Hgb Conc 31.2 g/dL (32.0-36.0); Mean Corpuscular Volume 90.5 fL (80.0-100.0); Mean Platelet Volume 10.3 fL (9.4-12.4); Monocytes % (auto) 5.9 %; Neutrophils % (auto) 79.9 %; Platelet Count 266 K/uL (130-400); RDW Coefficient of Variation 16.6 % (11.5-14.5); RDW Standard Deviation 55.2 fL (36.4-46.3); Red Blood Count 3.47 M/uL (4.70-6.10); White Blood Count 11.89 K/ul (4.8-10.8)
[2023-02-08 10:21] LABS: BUN Creatinine Ratio 38.1 (10-20); Creatinine Clr Calc Pharmacy 57.9 ml/min; Potassium 4.5 mmol/L (3.5-5.1)
[2023-02-08] MEDS ORDERED: levoFLOXacin 750 MG TAB PO SCH (11:00)
--- NOTE | 2023-02-08 15:10 | Discharge Summary ---
Date of Service February 08, 2023 Admission HPI Per Admitting Provider 77yo male with significant PMHx comes in with complaints of shortness of breath/hypoxia, and diarrhea with yellow/loose stools. Evaluated in C4, and daughter at bedside. On 10L Oxymask, typically uses 4L during the day and BiPAP at night ( notes did not bring with her). Noting increased shortness of breath, sputum production clear/thick white, recently got inhaler for albuterol HFA to use as needed, but does not use any nebulizers. reports he had PFT testing set up by [facility] that was completed recently. He has been having low grade temperature in ER but denies feeling such, no fevers noted at home. Denies any chest pain at present. Got breathing treatment and feeling a little better. Notes his leg swelling has been much improved and endorses recent switch from lasix to bumex for volume management but noting diarrhea on/off and complaints of stomach discomfort (denies at present). Per , accident w/ diarrhea this past weekend and was grossly yellow in color. On chronic steroids for psoriatic arthritis, recently started on Stelara and first dose in January, next dose due for tomorrow. concerns about holding this as patient w/ increased discomforts when stopped. Will discuss w/ supervising provider however would recommend holding for now. She notes it is refrigerated and will need notified to bring in if able to give. She will also bring his BiPAP for tomorrow. RN providing insulin/dextrose for hyperkalemia, will monitor labs on repeat/K binder if need. Wanting something to eat, will order. Dehydrated on exam, IVF ordered. Will be holding diuretics/repeating labs. Discussed admission for further evaluation. He is ok with CPR but NO intubation. Confirmed with family at bedside. Of note, per daughter, prior pneumonia was unable to be picked up on CXR and he required CT. Discussed nebs/breathing treatments/sputum collection and will monitor for need for CT chest for further evaluation. Labs/imaging reviewed: WBC 21.1k w/ low grade temp. Lactic 3.1. Procal 0.56. Blood cultures pending DUNCAN w/ BUN/Cr 52/2.67. K 5.9. Mag 1.4. BNP not elevated at 72. Trop 18.5 Biofire negative CXR w/o acute process. UA does not appear to be infected. Of note, prior CTAP angio noting short segment of at least moderate stenosis involving proximal inferior mesenteric artery. ER Course: 2L NSS for sepsis pathway/elevated lactic 3.1. Cefepime IV. MRSA nares pending. IV magnesium ordered. Discharge Exam gen - looks much better today; NAD neck - no obvious JVD mouth - MMM heart - RRR, s1 s2, no murmur lungs - b/l basilar rales L>R; fine, dry; no wheezes; no increased work of breathing abd - soft NT BS+ND ext - trace edema b/l ankles/feet, pulses 2+ b/l psych - a/o x 3 Discharge Data Allergies Allergy/AdvReac Type Severity Reaction Status Date / Time codeine Allergy Intermediate HIVES (PT Verified 02/05/23 10:46 DOES NOT USE PERCOCET) Consultations 02/05/23 12:30 ED Decision to Admit Stat Hospital Course (1) Sepsis: severe sepsis - present on admission. IMPROVED. likely source -> despite negative cxr x 2 still suspect the lungs. b/l basilar rales. cont doxy. cont cefepime. can likely change to PO levaquin tomorrow if blood cx's cont to remain negative. MRSA swab neg - defer on MRSA coverage. stress dose steroids (prednisone 40mg today then 30mg tomorrow & keep weaning). other supportive care. Resp BioFire fully negative. Lyme screen negative. Anaplasmosis smear negative. I don't suspect tick-borne infection as cause of his presentation. repeat labs am. (2) Acute and chronic respiratory failure with hypoxia: chronic - 4 L NC O2 continuously. acute - was requiring as much as 10 L of O2 on day of presentation/admission. I do suspect lower respiratory tract infection despite the negative cxr and negative BioFire panel. cont abx - likely can transition to PO abx tomorrow. cont saline nebs. cont albuterol nebs qid. cont flutter valve, etc. cont prednisone stress dosing w/ taper. recent outpatient PFTs with severe restrictive lung disease. CT chest in early 2022 without ILD/PF or other significant lung abnormalities. restriction 2nd to morbid obesity? (3) Acute kidney injury superimposed on chronic kidney disease: Peak Cr 2.67 Likely sepsis-associated ATN Cr again improved today Cont to hold bumex repeat BMP am of note - baseline Cr is about 1.3 to 1.5 with CrCl 40s/50s (stage 3a) (4) Acute hyperkalemia: 2nd to #3 - resolved BMP am (5) Hypomagnesemia: replaced resolved low mag likely 2nd to diarrhea & diuretics (6) Diabetes: last a1c 7.3 earlier this year; repeat a1c >8% holding metformin holding glimepiride continue empagliflozin BSG AC/HS due to stress dose steroids -- significant hyperglycemia increase lantus increase novolog parameters (7) CHF (congestive heart failure): Chronic diastolic CHF Volume depleted in setting of severe sepsis at time of admission Bumex, MARIE, metolazone all on hold Continue amlodipine 5mg, metoprolol 200mg, statin, empagliflozin 10mg daily resume bumex close to d/c was on 2mg BID prior to admission (8) Diarrhea: resolved if it recurs -- check c diff and check stool BioFire if c diff is negative (9) Psoriatic arthropathy: on prednisone 5mg daily chronically "for years" recently initiated on Stelara immunotherapy -- this should be held in light of #1 will provide stress dose steroids due to his illness - 40mg today, then 30mg tomorrow (10) Sleep apnea: Bipap HS may use home unit (11) GERD (gastroesophageal reflux disease): continue ppi (12) Hyperlipidemia: continue statin (13) Weakness: 2nd to #1 PT/OT while here weakness is improving (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 suspected pneumonia - resolving 2. sepsis due to #1 - resolved 3. acute kidney injury (rise in creatinine, the kidney function level in blood) - resolved, creatinine is back to normal 4. high potassium - due to #3 - resolved 5. chronic respiratory failure on home oxygen 6. psoriatic arthritis 7. chronic prednisone use Activity: As commented below Activity Comment: gradually increase your activities over the next week as tolerated Non-emergency contact: Primary Care Provider and Beverage Specialist Call non-emergency contact if: you have any medication questions, your symptoms worsen and you have a fever Follow-up/Referrals: Surekha Rea CRNP [Primary Care Provider] - 02/18/23 10:30 am (1 week) JobtrinidadChelo PA-C [Physician Clerical And Office Support Workers] - (see Ms Avilez within 5-7 days for your congestive heart failure ) Diet: Heart Healthy Fluids: 1800ml (7 cups) Addtl Attending Provider Instructions: Mr Campbell, You were hospitalized due to suspected pneumonia. The suspected pneumonia caused sepsis. In the midst of your illness your kidney function temporarily got worse. Fortunately all of the above issues improved nicely with antibiotics, supportive care, and time. Your kidney function level has improved back to normal (creatinine today is 1.3). You had had diarrhea in the days leading up to admission. This has resolved without any specific treatment. Your congestive heart failure has been stable since coming to the hospital. Recommendations - 1. Levofloxacin antibiotic - 750mg x 1 on 02/10/23. This will conclude your antibiotic course for pneumonia. 2. Hold the following medications until tomorrow AM, 02/09/23 - * bumetanide (bumex) water pill * magnesium supplement * glimepiride diabetes medication 3. HOLD lisinopril until you see either Ms Avilez or Ms Rea. 4. If you experience constipation problems you can take 1 or both of the following coap-kym-cfbxaso medications - * miralax one serving once daily * senokot 2 tablets daily 5. Prednisone - please do the following - * 02/09/23 - take 20mg x 1 * 02/10/23 and thereafter - 5mg once daily as previous 6. Over the next 2-3 days please watch your blood sugars carefully as they may be elevated due to the higher amounts of prednisone. 7. Check your weights daily/each morning on the same scale. Write these down for Ms Avilez to see. Notify Ms Avilez if you gain more than 2-3 pounds over 1-2 days. 8. HOLD your Stelara. I will let Dr Rdz know about your hospitalization. He will let you know when to resume the Stelara. 9. Follow-up - see separate section Return to [facility] if - * you have fevers over 100 degrees * you have worsening shortness of breath * you have severe diarrhea * you have worsening wheezing * any other concerns It was our pleasure to care for you! Pending Studies at Discharge: Yes Studies:: blood cultures but thus far negative (and likely to remain negative) Stand-Alone Forms: My [facility], Smoking Cessation Medications and DC Order Prescriptions: New levofloxacin 750 mg Tablet 750 mg PO ONCE 1 Days Qty: 1 0RF Rx Instructions: take on 02/10/23 only. Continued cholecalciferol (vitamin D3) [Vitamin D3] 25 mcg (1,000 unit) capsule 5,000 unit PO QAM (DME) lancets [OneTouch Delica Lancets] 33 gauge misc See Dose Instructions .ROUTE .MEDSUPPLY Qty: 100 5RF Dose Instruction: As directed Rx Instructions: Use to check glucose daily DX CODE: E11.22 metoprolol succinate 200 mg tablet extended release 24 hr 200 mg PO QAM Qty: 90 3RF atorvastatin 10 mg tablet 10 mg PO QAM Qty: 90 3RF Jardiance 10 mg tablet 10 mg PO DAILY Qty: 30 5RF (DME) Portable Oxygen Misc See Rx Instructions .Route Qty: 1 11RF Rx Instructions: Oxygen with conserving device. O2 at 2 liters continuous, via nasal cannula with portability metformin 500 mg tablet 500 mg PO BID Qty: 180 3RF Rx Instructions: Administer with food (DME) OneTouch Verio test strips Strip See Rx Instructions .Route Qty: 100 5RF Rx Instructions: check glucose daily dx code : e11.22 Tradjenta 5 mg tablet 5 mg PO DAILY Qty: 30 7RF gabapentin 300 mg capsule 300 mg PO QAM Rx Instructions: 300 mg orally Take 300 MG in the AM and 600 MG in the PM; alendronate [Fosamax] 70 mg tablet 70 mg PO .weekly Qty: 4 0RF Rx Instructions: or Fridays; Filled by rheumatology (DME) Oxygen Home Liters Per Minute See Rx Instructions .Route Qty: 1 0RF Rx Instructions: 3L at rest and with Bipap and 4L with ambulation clobetasol 0.05 % cream 1 applic topical BID Qty: 45 1RF Rx Instructions: Apply to the stubborn plaques on arms, back, lower legs. fexofenadine 180 mg tablet 180 mg PO DAILY Qty: 30 6RF fluticasone propionate 50 mcg/actuation spray,suspension 1 spray intranasal BID Qty: 16 2RF Rx Instructions: administer into each nostril twice daily for 1-2 weeks then as needed nystatin 100,000 unit/gram powder 1 applic topical TID Qty: 60 3RF betamethasone dipropionate 0.05 % lotion 1 applic topical DAILY Qty: 60 1RF Rx Instructions: Apply to the scalp as needed for itching or redness. ketoconazole 2 % shampoo 1 applic topical .COMPLEX Qty: 120 1RF Patient Comments: HAS NOT STARTED Rx Instructions: 1 applic topical to the scalp 2-3 times a week. Allow to sit on the scalp for 5 minutes before rinsing. hydrocortisone 2.5 % cream 1 applic topical BID Qty: 28.35 2RF Patient Comments: HAS NOT STARTED Rx Instructions: Apply to the psoriasis lesions on face and ears. triamcinolone acetonide 0.1 % cream 1 applic topical BID Qty: 454 0RF Patient Comments: HAS NOT STARTED YET Rx Instructions: Apply BID to the lesions of psoriasis on the arms, chest, stomach, back, buttocks, legs amlodipine 5 mg tablet 5 mg PO DAILY metolazone 2.5 mg tablet 2.5 mg PO .COMPLEX PRN (Reason: WT GAIN 5 LB IN 3 DAYS.) Qty: 30 0RF Rx Instructions: 2.5 mg orally only as needed for weight gain greater than 3-5 pounds PRN; albuterol sulfate 90 mcg/actuation HFA aerosol inhaler 2 puff inhalation QID PRN (Reason: shortness of breath or wheezing) Qty: 8.5 1RF (DME) spacer device for inhaler See Rx Instructions .Route .MEDSUPPLY Qty: 1 0RF Rx Instructions: use with inhaler omeprazole 20 mg capsule,delayed release(DR/EC) 20 mg PO QAM [id number] Tablet 1 tab PO DAILY gabapentin 300 mg Capsule 600 mg PO PM prednisone 5 mg tablet 5 mg PO DAILY Qty: 30 0RF Rx Instructions: take 2 tabs for 3 days then drop to 1 tab every day and continue Held glimepiride 2 mg tablet 2 mg PO BID Qty: 180 3RF Hold Instructions: Resume on 02/09/23. lisinopril 30 mg tablet 30 mg PO DAILY Qty: 90 3RF Hold Instructions: hold until either Ms Avilez or Ms Devine give you the OK to resume Stelara 90 mg/mL syringe 90 mg subcut .COMPLEX Qty: 2 0RF Hold Instructions: hold until Dr Rdz states it is ok to resume Rx Instructions: Inject once and repeat in 4 weeks, then continue every 12 weeks; Start Date 01/08/23 (pt received 1st injection) bumetanide 2 mg tablet 2 mg PO BID Qty: 60 5RF Hold Instructions: Resume on 02/09/23. resume AM of 02/09/23. magnesium oxide 400 mg magnesium tablet 400 mg PO TID Qty: 270 1RF Hold Instructions: Resume on 02/09/23. Discharge Orders: Discharge Order (Routine); Ordered 02/08/23 Ordered By: Amauri Lloyd/Other Patient Handouts: High Blood Sugar (Hyperglycemia), Managing Type 2 Diabetes, Diabetes: Meal Planning Admission Data Admit Date/Time: 02/05/23 13:50 Attending Provider: Amauri Yee Admit Provider: Amauri Redd Primary Care Provider: Surekha Rea Other Providers: Amauri Rded ; [place] ; [facility] Coding Diagnoses Sepsis A41.9 Acute and chronic respiratory failure with hypoxia J96.21 Acute kidney injury superimposed on chronic kidney disease N17.9; N18.9 Acute hyperkalemia E87.5 Hypomagnesemia E83.42 Diabetes E11.9 CHF (congestive heart failure) I50.9 Diarrhea R19.7 Psoriatic arthropathy L40.50 Sleep apnea G47.30 GERD (gastroesophageal reflux disease) K21.9 Hyperlipidemia E78.5 Weakness R53.1 Stenosis of inferior mesenteric artery K55.1 Cardiomyopathy I42.0 Cardiomyopathy type: dilated
--- NOTE | 2023-02-09 07:06 | Electrocardiogram Report ---
Test Reason : Blood Pressure : / mmHG Vent. Rate : 100 BPM Atrial Rate : 100 BPM P-R Int : 266 ms QRS Dur : 072 ms QT Int : 316 ms P-R-T Axes : 056 034 058 degrees QTc Int : 407 ms Poor data quality, interpretation may be adversely affected Sinus rhythm with 1st degree A-V block Right atrial enlargement Low voltage QRS Cannot rule out Anteroseptal infarct (cited on or before 05-FEB-2023) Abnormal ECG When compared with ECG of 21-SEP-2022 03:02, Questionable change in initial forces of Anterior leads Confirmed by Burton Thao ([id number] on 02/09/2023 7:06:05 AM Referred By: REFERRED SELF Confirmed By:Burton Thao
--- NOTE | 2023-02-11 15:17 | Electrocardiogram Report ---
Test Reason : Blood Pressure : / mmHG Vent. Rate : 073 BPM Atrial Rate : 073 BPM P-R Int : 234 ms QRS Dur : 084 ms QT Int : 400 ms P-R-T Axes : 050 001 059 degrees QTc Int : 440 ms Sinus rhythm with 1st degree A-V block Low voltage QRS Septal infarct (cited on or before 05-FEB-2023) Abnormal ECG When compared with ECG of 05-FEB-2023 09:25, No significant change was found Confirmed by Burton Thao ([id number] on 02/11/2023 3:17:02 PM Referred By: REFERRED SELF Confirmed By:Burton Thao
== END 2023-02-08 16:45 | disposition home health service (06) | DRG 871 ==
LOC: ED 09:19 → 2E 13:50 → SUATTDRO 13:50 → 2E 16:12